=== PATIENT | female | born 1960 | race Caucasian/White ===

== ENCOUNTER → 2024-12-19 | Outpatient (REF) | payer OTHER, SELFPAY | LOC: OLS.ACW100 05:00 | PROVIDERS: Visit Provider Family Medicine | DX: A04.72 Enterocolitis due to Clostridium difficile, not specified as recurrent (principal) | CPT/HCPCS: 87493 ==

== ENCOUNTER → 2025-01-23 | Outpatient (REF) | payer OTHER, SELFPAY ==
[2025-01-23 09:38] LABS: Color, Urine Yellow (Yellow); Glucose, Dipstick Normal (Normal); Ketone-Dipstick Negative (Negative); Leukocyte Esterase-Dipstick 25 /ul (Negative); Nitrite-Dipstick Negative (Negative); Occult Blood-Urine 150 /ul (Negative); Protein-Dipstick 30 mg/dl (Negative); Specific Gravity, Urine 1.010 (1.002-1.030); Urine Bilirubin Dipstick Negative (Negative)
[2025-01-23 10:12] LABS: Red Blood Cells-Urine 25-50 SEEN /hpf (0-5)
[2025-01-23 10:13] LABS: Squamous Epithelial Cells - UA 5-10 SEEN /hpf (5-10)
[2025-01-23 10:16] LABS: Mucous, Urine 1+ /hpf (<or=2+)
== END ==
LOC: OLS.ACW100 06:00
PROVIDERS: Referring Provider Internal Medicine; Visit Provider Internal Medicine
DX: R39.9 Unspecified symptoms and signs involving the genitourinary system (principal)
CPT/HCPCS: 81001; 87086; 87088

== ENCOUNTER → 2025-02-27 04:00 | Outpatient (REF) | payer OTHER, SELFPAY ==
--- OUTSIDE RECORDS SUMMARY | 2025-02-27 04:52 | XMS RPT_ITS | CCD ---
Author Organization [facility] Care Team Providers Care Bone Process Operator Name Role Phone PROVIDER, UNKNOWN Unavailable Unavailable Aishwarya Rooney Unavailable Unavailable Tami Gomes Unavailable Unavailable Aishwarya Rooney MD Primary Care Provider Aishwarya Rooney Attending Unavailable PROVIDER, UNKNOWN Referring Unavailable Aishwarya Rooney Primary Care Unavailable Aishwarya Rooney Attending Unavailable PROVIDER, UNKNOWN Referring Unavailable Aishwarya Rooney Primary Care Unavailable Aishwarya Rooney MD Primary Care Provider Aishwarya Rooney MD Primary Care Provider Erika Soto RN Unavailable Aishwarya Garcia MD Primary Care Provider Priscilla Llanes MD Primary Care Provider PRISCILLA LLANES Primary Care Unavailable MIAH RAINES Admitting Unavailable VÍCTOR BRODY Consulting Unavailable JUSTO TEJADA Attending Unavailable Juan R Queen Attending Provider Unavailab Abraham Herman Attending Provider UnavailJuan R Mills Referring Provider Unavailab Juan R Fernandez Attending Unavailable Juan R Queen Referring Unavailable Juan R Queen Attending Unavailable Abraham Almaraz Attending Unavailable Juan R Queen Attending Unavailable Allergies Allergy Classification Reported Allergen(s) Allergy Type Date of Onset Reaction(s) Facility Angiotensin Converting Enzyme (SCOTTY) Inhibitors (1 source) Lisinopril Drug Allergy 12-02-2017 [facility] (12 sources) Lisinopril Propensity to adverse reactions 12-02-2017 [facility] Medications Current Medications Medication Drug Class(es) Dates Sig (Normalized) Sig (Original) apixaban 5 mg oral tablet (1 source) Factor Xa Inhibitor Start: 03-25-2017 take 1 tablet by mouth twice daily, then take 2 tablets by mouth twice daily, then take 1 tablet by mouth twice daily apixaban (ELIQUIS) 5 MG TABS tablet Take 1 tablet by mouth 2 times daily 2 tablets twice daily for for 7 days, first dose given in Emergency Room, 1 tablet twice daily after that 72 tablet 0 03/25/2017 Active 12 hr buPROPion hydrochloride 100 mg extended release oral tablet (4 sources) Aminoketone Start: 11-29-2024 End: 01-31-2025 miconazole nitrate 0.02 mg/mg topical powder (4 sources) Azole Antifungal Start: 11-24-2024 End: 12-03-2024 pantoprazole 40 mg delayed release oral tablet (2 sources) Proton Pump Inhibitor Start: 12-03-2024 End: 12-03-2025 Completed/Discontinued Medications Medication Drug Class(es) Dates Sig (Normalized) Sig (Original) acetaminophen 325 mg oral tablet (4 sources) Start: 11-30-2024 End: 12-03-2024 take 650 mg by mouth every four hours as needed for pain Start: 11-24-2024 End: 11-30-2024 take 1 tablet by mouth every eight hours 20 ml albumin human, long-term 250 mg/ml injection (6 sources) Human Serum Albumin Start: 11-30-2024 End: 11-30-2024 Start: 11-25-2024 End: 11-25-2024 amLODIPine 10 mg oral tablet (13 sources) Dihydropyridine Calcium Channel Jim Start: 05-14-2022 End: 12-03-2024 Start: 05-14-2022 amLODIPine (No rvasc) 10 MG tablet 05/14/2022 Active Start: 12-03-2017 take 1 tablet by kenneth once daily amLODIPine (NORVASC) 5 MG tablet Take 1 tablet by mouth daily 30 tablet 3 12/03/2017 Active calcium chloride 0.0014 meq/ ml / potassium chloride 0.004 meq/ml / sodium chloride 0.103 meq/ml / sodium lactate 0.028 meq/ml injectable solution (8 sources) Start: 11-28-2024 End: 11-28-2024 Start: 11-24-2024 End: 11-25-2024 carvedilol 6.25 mg oral tablet (12 sources) alpha-Adrenergic Jim, beta-Adrenergic Jim Start: 05-01-2022 End: 12-03-2024 Start: 05-01-2022 carvedilol (Co reg) 6.25 MG tablet 05/01/2022 Active cholecalciferol 9.52 unt/ml / glucose 357 mg/ml oral gel (2 sources) Vitamin D Start: 11-25-2024 End: 12-03-2024 collagenase 0.25 unt/mg topi felecia ointment (2 sources) Collagen-specific Enzyme Start: 11-25-2024 End: 12-03-2024 Drug or medicament (substanc e) (4 sources) Start: 11-25-2024 End: 12-03-2024 Start: 11-24-2024 End: 12-03-2024 0.4 ml enoxaparin sodium 100 mg/ml prefilled syringe (2 sources) Low Molecular Weight Heparin Start: 11-25-2024 End: 12-03-2024 famotidine 20 mg oral tablet (13 sources) Histamine-2 Receptor Antagonist Start: 12-02-2017 End: 12-03-2024 folic acid 1 mg oral tablet (15 sources) Start: 05-14-2022 End: 12-03-2024 folic acid (FOLV ITE) 1 MG tablet Take by mouth daily 0 Active 2 ml furosemide 10 mg/ml inj ection (4 sources) Loop Diuretic Start: 11-30-2024 End: 11-30-2024 glucagon (rdna) 1 mg injecti on (2 sources) Antihypoglycemic Agent Start: 11-25-2024 End: 12-03-2024 50 ml glucose 50 mg/ml injec tion (2 sources) Start: 11-25-2024 End: 12-03-2024 hydroCHLOROthiazide 25 mg or al tablet (13 sources) Thiazide Diuretic Start: 05-14-2022 End: 12-03-2024 Start: 12-03-2017 take 1 tablet by kenneth th once daily hydrochlorothiazide (HYDRODIURIL) 25 MG tablet Take 1 tablet by mouth daily 30 tablet 3 12/03/2017 Active hydrocortisone 100 mg inject ion (6 sources) Corticosteroid Start: 12-01-2024 End: 12-02-2024 Start: 11-25-2024 End: 11-30-2024 take 50 mg intravenously every eight hours magnesium oxide 400 mg oral tablet (2 sources) Start: 11-30-2024 End: 11-30-2024 50 ml magnesium sulfate 40 m g/ml injection (6 sources) Start: 11-30-2024 End: 12-01-2024 Start: 11-29-2024 End: 11-29-2024 Start: 11-27-2024 End: 11-27-2024 24 hr metFORMIN hydrochloride 500 mg extended release oral tablet (9 sources) Biguanide Start: 02-18-2022 End: 11-03-2022 metFORMIN XR (Glucophage-XR) 500 MG 24 hr tablet mupirocin 0.02 mg/mg topical ointment (2 sources) RNA Synthetase Inhibitor Antibacterial Start: 11-24-2024 End: 11-29-2024 1 ml naloxone hydrochloride 0.4 mg/ml injection (2 sources) Opioid Antagonist Start: 11-24-2024 End: 12-03-2024 piperacillin-tazob actam (Zosyn) 4,500 mg in sodium chloride 0.9 % 100 mL IVPB Mini-Bag Plus (2 sources) Start: 11-25-2024 End: 12-01-2024 take 4500 mg intravenously every six hours polyethylene glycol 3350 88553 mg powder for oral solution (2 sources) Osmotic Laxative Start: 11-24-2024 End: 12-03-2024 potassium chloride 20 meq powder for oral solution (20 sources) Start: 11-30-2024 End: 12-03-2024 Start: 11-30-2024 End: 11-30-2024 Start: 11-25-2024 End: 11-27-2024 Start: 11-25-2024 End: 11-28-2024 Start: 12-28-2020 End: 12-03-2024 potassium phosphate 155 mg / sodium phosphate, dibasic 852 mg / sodium phosphate, monobasic 130 mg oral tablet (4 sources) Start: 12-02-2024 End: 12-03-2024 rivaroxaban 20 mg oral tablet (12 sources) Factor Xa Inhibitor Start: 05-14-2022 End: 12-03-2024 10 ml sodium bicarbonate 84 mg/ml injection (2 sources) Start: 11-26-2024 End: 11-26-2024 5 ml sodium chloride 9 mg/ml injection (10 sources) Start: 11-25-2024 End: 12-03-2024 take 5-40 mL intraluminal route every eight hours Start: 11-25-2024 End: 12-03-2024 Start: 11-24-2024 End: 11-24-2024 traMADol hydrochloride 50 mg oral tablet (12 sources) Opioid Agonist Start: 09-18-2022 End: 12-03-2024 (20 sources) Start: 11-29-2024 End: 11-29-2024 Start: 11-28-2024 End: 11-28-2024 Start: 11-27-2024 End: 11-27-2024 Start: 11-26-2024 End: 11-27-2024 Start: 11-26-2024 End: 12-03-2024 [Order 1 Start] Name: pantop razole (ProtoNix) EC tablet 40 mg Signed Summary: 40 mg, Oral, Daily, First dose on 11/26/24 at 0900, Do not crush, chew, or split. [Order 1 End] [Order 2 Start] Name: pantoprazole (ProtoNix) 40 mg in sodium chloride (PF) 0.9 % 10 mL injection Signed Summary: 40 mg, IntraVENous, Administer over 2 Minutes, Daily, First dose on 11/26/24 at 0900, Give only if unable to tolerate po. [Order 2 End] Start: 11-25-2024 End: 11-25-2024 Start: 11-24-2024 End: 12-03-2024 take 5 mg by mouth every six hours as needed for pain [Order 1 Start] Name: oxyCODONE (Roxicodone) immediate release tablet 5 mg Signed Summary: 5 mg, Oral, Every 6 hours PRN, moderate pain (4-6), Starting on Keisha 11/24/24 at 2325 [Order 1 End] [Order 2 Start] Name: oxyCODONE (Roxicodone) immediate release tablet 10 mg Signed Summary: 10 mg, Oral, Every 6 hours PRN, severe pain (7-10), Starting on Keisha 11/24/24 at 2325 [Order 2 End] Start: 11-24-2024 End: 12-03-2024 take 4 mg by mouth every eight hours as needed for nausea and vomiting [Order 1 Start] Name: ondansetron ODT (Zofran-ODT) disintegrating tablet 4 mg Signed Summary: 4 mg, Oral, Every 8 hours PRN, nausea, vomiting, Starting on Keisha 11/24/24 at 2212, 1st Line. If inadequate response within 60 minutes, proceed to next-line agent or contact provider if no further options ordered. Patient should allow tablet to dissolve on tongue. Do not remove from blister pack until just before administering. [Order 1 End] [Order 2 Start] Name: ondansetron (Zofran) injection 4 mg Signed Summary: 4 mg, IntraVENous, Every 6 hours PRN, nausea, vomiting, Starting on Keisha 5 at 2212, 1st Line. Give IV if patient is unable to take orally. If inadequate response within 60 minutes, proceed to next-line agent or contact provider if no further options ordered. [Order 2 End] Start: 11-24-2024 End: 11-24-2024 Start: 11-24-2024 End: 11-24-2024 (4 sources) Start: 11-28-2024 End: 12-03-2024 Start: 11-26-2024 End: 12-03-2024 (4 sources) Start: 11-26-2024 End: 11-28-2024 Start: 11-25-2024 End: 11-26-2024 (4 sources) Start: 11-25-2024 End: 11-25-2024 Start: 11-25-2024 End: 11-25-2024 (4 sources) Start: 11-25-2024 End: 11-27-2024 Start: 11-25-2024 End: 11-25-2024 (2 sources) Start: 11-26-2024 End: 12-03-2024 (2 sources) Start: 11-25-2024 End: 11-27-2024 (2 sources) Start: 11-25-2024 End: 12-03-2024 (2 sources) Start: 11-24-2024 End: 11-25-2024 Problems Active Problems Problem Classification Problem Date Documented Date Episodic/Chronic Anxiety disorders (1 source) Anxiety disorder, unspecified; Translations: [Anxiety disorder, unspecified] Onset: 02-17-2025 Chronic Essential hypertension (14 sources) Essential (primary) hypertension; Translations: [Essential hypertension] Onset: 12-02-2017 10-16-2022 Chronic Malaise and fatigue (1 source) Weakness; Translations: [Weakness] Onset: 02-17-2025 Episodic Nutritional deficiencies (1 source) Moderate protein-calorie malnutrition; Translations: [Moderate protein-calorie malnutrition] Onset: 02-17-2025 Chronic Open wounds of extremities (8 sources) Injury of left leg; Translations: [Unspecified open wound, left lower leg, initial encounter] Onset: 11-24-2024 11-24-2024 Episodic Osteoarthritis (18 sources) Osteoarthritis of right knee joint; Translations: [Unilateral primary osteoarthritis, right knee] Onset: 07-02-2022 Chronic Other aftercare (2 sources) [facility] (current) use of anticoagulants; 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] Onset: 12-02-2017 Episodic Other connective tissue disease (1 source) Muscle weakness (generalized); Translations: [Muscle weakness (generalized)] Onset: 02-17-2025 Episodic Other diseases of veins and lymphatics (1 source) 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; Translations: [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] Onset: 02-17-2025 Chronic Other hematologic conditions (2 sources) Personal history of diseases of the blood and blood-forming organs and certain disorders involving the immune mechanism; Translations: [Prsnl history of dis of the bld/bld-form org/immun mechnsm] Onset: 12-02-2017 Episodic Other injuries and conditions due to external causes (2 sources) Angioneurotic edema, initial encounter; Translations: [Angioneurotic edema, initial encounter] Onset: 12-02-2017 Episodic Other injuries and conditions due to external causes (2 sources) Local infection of wound; Translations: [Other injury of unspecified body region, initial encounter] 11-24-2024 Episodic Other injuries and conditions due to external causes (2 sources) Other injury of unspecified body region, initial encounter; Translations: [Other injury of unspecified body region, initial encounter] Onset: 11-24-2024 Episodic Other nervous system disorders (1 source) Unspecified lack of coordination; Translations: [Unspecified lack of coordination] Onset: 02-17-2025 Episodic Other nutritional; endocrine; and metabolic disorders (1 source) Obesity, unspecified; Translations: [Obesity, unspecified] Onset: 02-17-2025 Chronic Other skin disorders (2 sources) Localized swelling, mass and lump, head; Translations: [Localized swelling, mass and lump, head] Onset: 12-02-2017 Episodic Residual codes; unclassified (4 sources) Edema of lower extremity; Translations: [Localized edema] 12-03-2024 Episodic Residual codes; unclassified (2 sources) Localized edema; Translations: [Localized edema] Onset: 11-24-2024 Episodic Septicemia (except in labor) (1 source) Sepsis, unspecified organism; Translations: [Sepsis, unspecified organism] Onset: 02-17-2025 Episodic Skin and subcutaneous tissue infections (2 sources) Local infection of the skin and subcutaneous tissue, unspecified; Translations: [Local infection of the skin and subcutaneous tissue, unspecified] Onset: 11-24-2024 Episodic Unclassified (2 sources) Acquired absence of both cervix and uterus; Translations: [Acquired absence of both cervix and uterus] Onset: 12-02-2017 Episodic Past or Other Problems Problem Classification Problem Date Documented Date Episodic/Chronic Other diseases of veins and lymphatics (12 sources) Peripheral venous insufficiency; Translations: [Venous insufficiency (chronic) (peripheral)] Onset: 06-25-2022 10-16-2022 Episodic Other hematologic conditions (12 sources) H/O: Disorder; Translations: [Personal history of diseases of the blood and blood-forming organs and certain disorders involving the immune mechanism] Onset: 12-02-2017 10-16-2022 Episodic Other injuries and conditions due to external causes (13 sources) Angioedema; Translations: [Angioneurotic edema, initial encounter] Onset: 12-02-2017 12-02-2017 Episodic Screening or history of mental health and substance abuse (14 sources) Personal history of nicotine dependence; Translations: [Personal history of tobacco use] Onset: 12-02-2017 10-16-2022 Episodic Results Test Name Value Interpretation Reference Range Facility Bilirubin Test strip Ql (U)O rdered By: Juan R Lee on 01-23-2025 Bilirubin Ql (U) Negative Negative [facility] Hyaline casts LM.LPF (Urine sed) [#/Area]Ordered By: Juan R Lee on 01-23-2025 Hyaline casts (Urine sed) [#/Area] 0 /[LPF] 0-5 [facility] Ketones Test strip Ql (U)Ord ered By: Juan R Lee on 01-23-2025 Ketones Ql (U) Negative Negative [facility] Microscopic analysis of urin e for red blood cells (RBC)Ordered By: Juan R Lee on 01-23-2025 Microscopic analysis of urine for red blood cells (RBC) 25-50 SEEN /hpf 0-5 [facility] Mucus LM Ql (Urine sed)Order ed By: Juan R Lee on 01-23-2025 Mucus Ql (Urine sed) 1+ /hpf [facility] Nitrite Test strip Ql (U)Ord ered By: Juan R Lee on 01-23-2025 Nitrite Ql (U) Negative Negative [facility] Protein Test strip Ql (U)Ord ered By: Juan R Lee on 01-23-2025 Protein Ql (U) 30 mg/dl High Negative [facility] Squamous epithelial cells de tection in urine sediment by light microscopyOrdered By: Juan R Lee on 01-23-2025 Epithelial cells.squamous LM Ql (Urine sed) 5-10 SEEN /hpf 5-10 [facility] Urine clarityOrdered By: Bharathi Lee on 01-23-2025 Clarity (U) Sl. Cloudy Clear [facility] Urine color determinationOrd ered By: Juan R Lee on 01-23-2025 Color (U) Yellow Yellow [facility] Urine cultureOrdered By: Bharathi Lee on 01-23-2025 Bacteria identified Cx Nom (U) Mixed Gram Pos & Gram Neg Org Abnormal [facility] Urine glucose detectionOrder ed By: Juan R Lee on 01-23-2025 Glucose Ql (U) Normal mg/dl Normal [facility] Urine leukocyte esterase det ection by dipstickOrdered By: Juan R Lee on 01-23-2025 Leukocyte esterase Test strip Ql (U) 25 /ul High Negative [facility] Urine pHOrdered By: Juan R el on 01-23-2025 pH (U) 7.0 [pH] 5.0 - 8.0 [facility] Urine sediment bacteria coun t by microscopy (number/high power field)Ordered By: Juan R Lee on 01-23-2025 Bacteria LM.HPF (Urine sed) [#/Area] RARE /hpf None Seen [facility] Urine specific gravity measu rementOrdered By: Juan R Lee on 01-23-2025 Specific gravity (U) [Rel density] 1.010 1.002-1.030 [facility] Urine urobilinogen measureme ntOrdered By: Juan R Lee on 01-23-2025 Urobilinogen Ql (U) 1 mg/dl High [facility] White blood cell countOrdere d By: Juan R Lee on 01-23-2025 White blood cell count 10-25 SEEN /hpf 0-5 [facility] [id number] 01-01-2025 [id number] Patient Choice Patient Name: MAXWELL COLLIER Date of : 1960 [facility] Clostridium difficile detect ion by polymerase chain reactionOrdered By: Abraham Abbott on 12-19-2024 C. difficile DNA ARON+probe Ql (Unsp spec) [facility] Anion gap in Serum or Plasma Ordered By: Juan R Lee on 12-07-2024 Anion gap [Moles/Vol] 11 mmol/L 5-15 [facility] BUN/creatinine ratioOrdered By: Juan R Lee on 12-07-2024 Urea nitrogen/Creatinine [Mass ratio] 13.6 mg/mg 10-20 [facility] Bilirubin, totalOrdered By: Juan R Lee on 12-07-2024 Bilirubin [Mass/Vol] 0.81 mg/dL 0.00-1.30 [facility] Carbon dioxide, total [Moles /volume] in Central venous bloodOrdered By: Juan R Lee on 12-07-2024 CO2 [Moles/Vol] 22.7 mmol/L 21.0-32.0 [facility] Chloride assayOrdered By: Shaan Chaudhari on 12-07-2024 Chloride [Moles/Vol] 111 mmol/L High 98-108 [facility] Erythrocyte distribution wid th ratioOrdered By: Juan R Lee on 12-07-2024 Erythrocyte distribution width (RBC) [Ratio] 16.3 % High 11.6-14.6 [facility] Erythrocyte distribution wid th standard deviationOrdered By: Juan R Lee on 12-07-2024 Erythrocyte distribution width (RBC) [Ratio] 63.7 fl High 35.1-43.9 [facility] Glomerular filtration rate ( GFR) estimation/1.73 sq m using serum, plasma, or whole bOrdered By: Juan R Lee on 12-07-2024 GFR/1.73 sq M.predicted among non-blacks MDRD (S/P/Bld) [Vol rate/Area] 109 mL/min/{1.73_m2} >60 [facility] Comment on above: mL/min/1.73m2 CKD-EP I Creatinine Equation (2020) Hematocrit Auto (Bld) [Volum e fraction]Ordered By: Juan R Lee on 12-07-2024 Hematocrit (Bld) [Volume fraction] 25.1 % Low 37-47 [facility] Hemoglobin measurementOrdere d By: Juan R Lee on 12-07-2024 Hemoglobin (Bld) [Mass/Vol] 7.9 g/dL Low 12.0-15.0 [facility] Laboratory - Chemistry and C hemistry - challengeOrdered By: Juan R Lee on 12-07-2024 AST [Catalytic activity/Vol] 24 U/L <32 [facility] MCV (mean corpuscular volume ) determinationOrdered By: Juan R Lee on 12-07-2024 MCV (RBC) [Entitic vol] 106.4 fL High 81-99 [facility] Mean corpuscular hemoglobin (MCH) determinationOrdered By: Juan R Lee on 12-07-2024 MCH (RBC) [Entitic mass] 33.5 pg High 27.0-32.0 [facility] Mean corpuscular hemoglobin concentration (MCHC) determinationOrdered By: Juan R Lee on 12-07-2024 MCHC (RBC) [Mass/Vol] 31.5 g/dL Low 32-36 [facility] Mean platelet volume determi nationOrdered By: Juan R Lee on 12-07-2024 Platelet mean volume (Bld) [Entitic vol] 9.9 fL 6.2-12.0 [facility] Platelet countOrdered By: Shaan Chaudhari on 12-07-2024 Platelets (Bld) [#/Vol] 174 10*3/uL 150-450 [facility] Potassium measurement (mass/ volume)Ordered By: Juan R Lee on 12-07-2024 Potassium (Unsp spec) [Mass/Vol] 3.2 mmol/L Low 3.3-5.1 [facility] RBC Auto (Bld) [#/Vol]Ordere d By: Juan R Lee on 12-07-2024 RBC (Bld) [#/Vol] 2.36 10*6/uL Low 4.2-5.4 [facility] Serum creatinine measurement (mass/volume)Ordered By: Juan R Lee on 12-07-2024 Creatinine [Mass/Vol] 0.45 mg/dL Low 0.70-1.20 [facility] Serum globulin measurementOr dered By: Juan R Lee on 12-07-2024 Globulin (S) [Mass/Vol] 2.4 g/dL 2.2-4.2 [facility] Serum glucose measurement (m ass/volume)Ordered By: Juan R Lee on 12-07-2024 Glucose [Mass/Vol] 77 mg/dL 70-99 [facility] Serum or plasma alanine august otransferase (ALT) measurementOrdered By: Juan R Lee on 12-07-2024 ALT [Catalytic activity/Vol] 27 U/L <35 [facility] Serum or plasma albumin sarah urement (mass/volume)Ordered By: Juan R Lee on 12-07-2024 Albumin [Mass/Vol] 3.0 g/dL Low 3.4-4.8 [facility] Serum or plasma albumin/glob ulin mass ratioOrdered By: Juan R Lee on 12-07-2024 Albumin/Globulin [Mass ratio] 1.3 {ratio} 0.9-2.4 [facility] Serum or plasma alkaline talya sphatase measurementOrdered By: Juan R Lee on 12-07-2024 ALP [Catalytic activity/Vol] 91 U/L 35-104 [facility] Serum or plasma calcium sarah urement (mass/volume)Ordered By: Juan R Lee on 12-07-2024 Calcium [Mass/Vol] 9.3 mg/dL 7.6-11.0 [facility] Serum or plasma urea nitroge n measurement (mass/volume)Ordered By: Juan R Lee on 12-07-2024 Urea nitrogen [Mass/Vol] 6 mg/dL - [facility] Sodium levelOrdered By: Lui Lee on 12-07-2024 Sodium [Moles/Vol] 144 mmol/L 133-145 [facility] Total proteinOrdered By: Bharathi Lee on 12-07-2024 Protein [Mass/Vol] 5.4 g/dL Low 5.9-8.4 [facility] White blood cell (WBC) count Ordered By: Juan R Lee on 12-07-2024 WBC (Bld) [#/Vol] 5.1 10*3/uL 4.4-11.0 [facility] Anion gap in Serum or Plasma Ordered By: Juan R Lee on 12-05-2024 Anion gap [Moles/Vol] 11 mmol/L 5- [facility] BUN/creatinine ratioOrdered By: Juan R Lee on 12-05-2024 Urea nitrogen/Creatinine [Mass ratio] 15.7 mg/mg 10- [facility] Bilirubin, totalOrdered By: Juan R Lee on 12-05-2024 Bilirubin [Mass/Vol] 0.89 mg/dL 0.00-1.30 [facility] Carbon dioxide, total [Moles /volume] in Central venous bloodOrdered By: Juan R Lee on 12-05-2024 CO2 [Moles/Vol] 23.1 mmol/L 21.0-32.0 [facility] Chloride assayOrdered By: Shaan Chaudhari on 12-05-2024 Chloride [Moles/Vol] 107 mmol/L 98-108 [facility] Erythrocyte distribution wid th ratioOrdered By: Juan R Lee on 12-05-2024 Erythrocyte distribution width (RBC) [Ratio] 16.4 % High 11.6-14.6 [facility] Erythrocyte distribution wid th standard deviationOrdered By: Juan R Lee on 12-05-2024 Erythrocyte distribution width (RBC) [Ratio] 62.6 fl High 35.1-43.9 [facility] Glomerular filtration rate ( GFR) estimation/1.73 sq m using serum, plasma, or whole bOrdered By: Jua nR Lee on 12-05-2024 GFR/1.73 sq M.predicted among non-blacks MDRD (S/P/Bld) [Vol rate/Area] 113 mL/min/{1.73_m2} >60 [facility] Comment on above: mL/min/1.73m2 CKD-EP I Creatinine Equation (2020) Hematocrit Auto (Bld) [Volum e fraction]Ordered By: Juan R Lee on 12-05-2024 Hematocrit (Bld) [Volume fraction] 23.5 % Low 37-47 [facility] Hemoglobin measurementOrdere d By: Juan R Lee on 12-05-2024 Hemoglobin (Bld) [Mass/Vol] 7.7 g/dL Low 12.0-15.0 [facility] Laboratory - Chemistry and C hemistry - challengeOrdered By: Juan R Lee on 12-05-2024 AST [Catalytic activity/Vol] 35 U/L High <32 [facility] MCV (mean corpuscular volume ) determinationOrdered By: Juan R Lee on 12-05-2024 MCV (RBC) [Entitic vol] 104.0 fL High 81-99 [facility] Mean corpuscular hemoglobin (MCH) determinationOrdered By: Juan R Lee on 12-05-2024 MCH (RBC) [Entitic mass] 34.1 pg High 27.0-32.0 [facility] Mean corpuscular hemoglobin concentration (MCHC) determinationOrdered By: Juan R Lee on 12-05-2024 MCHC (RBC) [Mass/Vol] 32.8 g/dL 32-36 [facility] [facility] Mean platelet volume determi nationOrdered By: Juan R Lee on 12-05-2024 Platelet mean volume (Bld) [Entitic vol] 10.2 fL 6.2-12.0 [facility] Platelet countOrdered By: Shaan Chaudhari on 12-05-2024 Platelets (Bld) [#/Vol] 150 10*3/uL 150-450 [facility] Potassium measurement (mass/ volume)Ordered By: Juan R Lee on 12-05-2024 Potassium (Unsp spec) [Mass/Vol] 3.2 mmol/L Low 3.3-5.1 [facility] RBC Auto (Bld) [#/Vol]Ordere d By: Juan R Lee on 12-05-2024 RBC (Bld) [#/Vol] 2.26 10*6/uL Low 4.2-5.4 [facility] Serum creatinine measurement (mass/volume)Ordered By: Juan R Lee on 12-05-2024 Creatinine [Mass/Vol] 0.39 mg/dL Low 0.70-1.20 [facility] Serum globulin measurementOr dered By: Juan R Lee on 12-05-2024 Globulin (S) [Mass/Vol] 2.4 g/dL 2.2-4.2 [facility] Serum glucose measurement (m ass/volume)Ordered By: Juan R Lee on 12-05-2024 Glucose [Mass/Vol] 79 mg/dL 70-99 [facility] Serum or plasma alanine august otransferase (ALT) measurementOrdered By: Juan R Lee on 12-05-2024 ALT [Catalytic activity/Vol] 36 U/L High <35 [facility] Serum or plasma albumin sarah urement (mass/volume)Ordered By: Juan R Lee on 12-05-2024 Albumin [Mass/Vol] 3.1 g/dL Low 3.4-4.8 [facility] Serum or plasma albumin/glob ulin mass ratioOrdered By: Juan R Lee on 12-05-2024 Albumin/Globulin [Mass ratio] 1.3 {ratio} 0.9-2.4 [facility] Serum or plasma alkaline talya sphatase measurementOrdered By: Juan R Lee on 12-05-2024 ALP [Catalytic activity/Vol] 84 U/L 35-104 [facility] Serum or plasma calcium sarah urement (mass/volume)Ordered By: Juan R Lee on 12-05-2024 Calcium [Mass/Vol] 9.2 mg/dL 7.6-11.0 [facility] Serum or plasma urea nitroge n measurement (mass/volume)Ordered By: Juan R Lee on 12-05-2024 Urea nitrogen [Mass/Vol] 6 mg/dL 4-19 [facility] Sodium levelOrdered By: Lui Lee on 12-05-2024 Sodium [Moles/Vol] 141 mmol/L 133-145 [facility] Total proteinOrdered By: Bharathi Lee on 12-05-2024 Protein [Mass/Vol] 5.5 g/dL Low 5.9-8.4 [facility] White blood cell (WBC) count Ordered By: Juan R Lee on 12-05-2024 WBC (Bld) [#/Vol] 5.6 10*3/uL 4.4-11.0 [facility] 30on 12-03-2024 30 Normal [facility] [id number] 12-03-2024 [id number] Normal [facility] [id number] Normal [facility] BASIC METABOLIC PANELon 11-17 Anion gap [Moles/Vol] 8 mmol/L Normal 3-13 [facility] Comment on above: Performed By: #### L AB103, LAB15, [id number] ####Registration Coordinator: JESSY OWENS ([id number])[facility] [place] [address] Calcium [Mass/Vol] 9.3 mg/dL Normal 8.8-10.0 [facility] Comment on above: Performed By: #### Davidson AB103, LAB15, [id number] ####Registration Coordinator: JESSY OWENS ([id number])[facility] ([facility])[address] [place] [address] [place] Chloride [Moles/Vol] 107 mmol/L Normal 98-107 [facility] Comment on above: Performed By: #### L AB103, LAB15, [id number] ####Registration Coordinator: JESSY OWENS ([id number])[facility] [place] [address] [place] CO2 [Moles/Vol] 24 mmol/L Normal 23-31 [facility] Comment on above: Performed By: #### L AB103, LAB15, [id number] ####Registration Coordinator: JESSY OWENS ([id number])[facility] [place] [address] [place] Creatinine [Mass/Vol] 0.51 mg/dL Low 0.57-1.11 [facility] Comment on above: Performed By: #### Davidson CASTRO, LAB15, [id number] ####Registration Coordinator: JESSY OWENS ([id number])[facility])[address] [place] [address] GLOMERULAR FILTRATION RATE ML/MIN/1.73 SQ M.PREDICTED >90.0 Normal >60.0 [facility] Comment on above: Result Comment: Calc ulation based on the Chronic Kidney Disease Epidemiology Collaboration (CKD-EPI) equation refit without adjustment for race Performed By: #### Davidson CASTRO, LAB15, [id number] ####Registration Coordinator: JESSY OWENS ([id number])[facility])[address] [place] [address] Glucose [Mass/Vol] 82 mg/dL Normal 82-115 [facility] Comment on above: Performed By: #### Davidson CASTRO, LAB15, [id number] ####Registration Coordinator: JESSY OWENS ([id number])[facility])[address] [place] [address] Potassium [Moles/Vol] 3.4 mmol/L Low 3.5-5.1 [facility] Comment on above: Result Comment: [facility] potassium values may be up to 0.5 mmol/L lower than serum values. Performed By: #### Davidson CASTRO, LAB15, [id number] ####Registration Coordinator: JESSY OWENS ([id number])[facility])[address] [place] [address] Sodium [Moles/Vol] 139 mmol/L Normal 136-145 [facility] Comment on above: Performed By: #### Davidson CASTRO, LAB15, [id number] ####Registration Coordinator: JESSY OWENS ([id number])[facility])[address] [place] [address] Urea nitrogen [Mass/Vol] 13 mg/dL Normal 9-23 [facility] Comment on above: Performed By: #### Davidson AB103, LAB15, [id number] ####Registration Coordinator: JESSY OWENS ([id number])[facility] ([facility])[address] [place] [address] Bacteria identified Cx Nom ( Bld)on 12-03-2024 Interpretation and review of laboratory results Normal [facility] Basic metabolic 1998 panelon 12-03-2024 Anion gap [Moles/Vol] 8 mmol/L 3 - 13 mmol/L [facility] Calcium [Mass/Vol] 9.3 mg/dL 8.8 - 10. 0 mg/dL [facility] Chloride [Moles/Vol] 107 mmol/L 98 - 10 7 mmol/L [facility] CO2 [Moles/Vol] 24 mmol/L 23 - 31 mmol/L [facility] Creatinine [Mass/Vol] 0.51 mg/dL Low 0.57 - 1.11 mg/dL [facility] GFR/1.73 sq M.predicted (S/P/Bld) [Vol rate/Area] - PINF [facility] Glucose [Mass/Vol] 82 mg/dL 82 - 115 mg/dL [facility] Potassium [Moles/Vol] 3.4 mmol/L Low 3.5 - 5.1 mmol/L [facility] Sodium [Moles/Vol] 139 mmol/L 136 - 145 mmol/L [facility] Urea nitrogen [Mass/Vol] 13 mg/dL 9 - 23 mg/d L [facility] CALCIUM, IONIZEDon 5 CALCIUM IONIZED 4.90 mg/dL Normal 4.30-5.20 [facility] Comment on above: Performed By: #### L AB54 ####Registration Coordinator: JESSY OWENS ([id number])[facility] ([facility])[address] [place] [address] PH, IONIZED CALCIUM 7.38 Normal 7.31-7.46 [facility] Comment on above: Performed By: #### L AB54 ####Registration Coordinator: JESSY OWENS ([id number])[facility] ([facility])[address] [place] [address] CBC W Auto Differential pane l (Bld)on 12-03-2024 Basophils (Bld) [#/Vol] 0 10*3/uL 0.0 - 0.2 10*3/uL [facility] Basophils/100 WBC (Bld) 0.1 % 0.0 - 2.0 % [facility] Eosinophils (Bld) [#/Vol] 0.2 10*3/uL 0.0 - 0.5 10*3/uL [facility] Eosinophils/100 WBC (Bld) 2.1 % 0.0 - 6.0 % [facility] Erythrocyte distribution width (RBC) [Ratio] 16.6 % High 11.5 - 15.0 % [facility] Hematocrit (Bld) [Volume fraction] 25.8 % Low 35.0 - 47.0 % [facility] Hemoglobin (Bld) [Mass/Vol] 8.4 g/dL Low 11.7 - 16.0 g/dL [facility] Immature granulocytes (Bld) [#/Vol] 0.1 10*3/uL High NINF - 0.1 10*3/uL [facility] Immature granulocytes/100 WBC (Bld) 1.3 % 0.0 - 2.0 % [facility] Interpretation and review of laboratory results Abnormal [facility] Lymphocytes (Bld) [#/Vol] 1.5 10*3/uL 1.0 - 4.3 10*3/uL [facility] Lymphocytes/100 WBC (Bld) 17.2 % 15.0 - 45.0 % [facility] MCH (RBC) [Entitic mass] 33.5 pg 26. 0 - 34.0 pg [facility] MCHC (RBC) [Mass/Vol] 32.6 % 30.5 - 36.0 % [facility] MCV (RBC) [Entitic vol] 102.8 fL High 77.0 - 99.0 fL [facility] Monocytes (Bld) [#/Vol] 0.5 10*3/uL 0.0 - 0.9 10*3/uL [facility] Monocytes/100 WBC (Bld) 5.3 % 5.0 - 13.0 % [facility] Neutrophils (Bld) [#/Vol] 6.6 10*3/uL 1.8 - 7.5 10*3/uL [facility] Neutrophils/100 WBC (Bld) 74 % 38.0 - 82.0 % [facility] Nucleated RBC/100 WBC (Bld) [Ratio] 0 % [facility] Platelet mean volume (Bld) [Entitic vol] 10.6 fL 9.0 - 12.7 fL [facility] Platelets (Bld) [#/Vol] 112 10*3/uL Low 140 - 440 10*3/uL [facility] RBC (Bld) [#/Vol] 2.51 10*6/uL Low 3.80 - 5.2 0 10*6/uL [facility] WBC (Bld) [#/Vol] 8.9 10*3/uL 3.6 - 10.7 10*3/uL [facility] CBC WITH AUTO DIFFERENTIALon 12-03-2024 Basophils (Bld) [#/Vol] 0.0 10*3/uL Normal 0.0-0.2 [facility] Comment on above: Performed By: #### L [id number] ####Registration Coordinator: JESSY OWENS ([id number])[facility])[address] [place] [address] Basophils/100 WBC (Bld) 0.1 % Normal 0.0-2.0 [facility] Comment on above: Performed By: #### L [id number] ####Registration Coordinator: JESSY OWENS ([id number])[facility])[address] [place] [address] Eosinophils (Bld) [#/Vol] 0.2 10*3/uL Normal 0.0-0.5 [facility] Comment on above: Performed By: #### L [id number] ####Registration Coordinator: JESSY OWENS ([id number])[facility])[address] [place] [address] Eosinophils/100 WBC (Bld) 2.1 % Normal 0.0-6.0 [facility] Comment on above: Performed By: #### L [id number] ####Registration Coordinator: JESSY OWENS ([id number])[facility])[address] [place] [address] Erythrocyte distribution width (RBC) [Ratio] 16.6 % High 11.5-15.0 [facility] Comment on above: Performed By: #### L [id number] ####Registration Coordinator: JESSY OWENS ([id number])[facility])[address] [place] [address] Hematocrit (Bld) [Volume fraction] 25.8 % Low 35.0-47.0 [facility] Comment on above: Performed By: #### L [id number] ####Registration Coordinator: JESSY OWENS ([id number])[facility])[address] [place] [address] Hemoglobin (Bld) [Mass/Vol] 8.4 g/dL Low 11.7-16.0 [facility] Comment on above: Performed By: #### L [id number] ####Registration Coordinator: JESSY OWENS ([id number])[facility])[address] [place] [address] IMMATURE GRANS % 1.3 % Normal 0.0-2.0 [facility] Comment on above: Performed By: #### L [id number] ####Registration Coordinator: JESSY OWENS ([id number])[facility] ([facility])[address] [place] [address] IMMATURE GRANS ABSOLUTE 0.1 10*3/uL High <0.1 [facility] Comment on above: Performed By: #### L [id number] ####Registration Coordinator: JESSY OWENS ([id number])[facility])[address] [place] [address] Lymphocytes (Bld) [#/Vol] 1.5 10*3/uL Normal 1.0-4.3 [facility] Comment on above: Performed By: #### L [id number] ####Registration Coordinator: JESSY OWENS ([id number])[facility])[address] [place] [address] Lymphocytes/100 WBC (Bld) 17.2 % Normal 15.0-45.0 [facility] Comment on above: Performed By: #### L [id number] ####Registration Coordinator: JESSY OWENS ([id number])[facility])[address] [place] [address] MCH (RBC) [Entitic mass] 33.5 pg Normal 26.0-34.0 [facility] Comment on above: Performed By: #### L [id number] ####Registration Coordinator: JESSY OWENS ([id number])[facility])[address] [place] [address] MCHC 32.6 % Normal 30.5-36.0 [facility] Comment on above: Performed By: #### L [id number] ####Registration Coordinator: JESSY OWENS ([id number])[facility])[address] [place] [address] MCV (RBC) [Entitic vol] 102.8 fL High 77.0-99.0 [facility] Comment on above: Performed By: #### L [id number] ####Registration Coordinator: JESSY OWENS ([id number])[facility])[address] [place] [address] Monocytes (Bld) [#/Vol] 0.5 10*3/uL Normal 0.0-0.9 [facility] Comment on above: Performed By: #### L [id number] ####Registration Coordinator: JESSY OWENS ([id number])[facility])[address] [place] [address] Monocytes/100 WBC (Bld) 5.3 % Normal 5.0-13.0 [facility] Comment on above: Performed By: #### L [id number] ####Registration Coordinator: JESSY OWENS ([id number])[facility])[address] [place] [address] NEUTROPHILS ABSOLUTE 6.6 10*3/uL Normal 1.8-7.5 [facility] Comment on above: Performed By: #### L [id number] ####Registration Coordinator: JESSY OWENS ([id number])[facility])[address] [place] [address] Neutrophils/100 WBC (Bld) 74.0 % Normal 38.0-82.0 [facility] Comment on above: Performed By: #### L [id number] ####Registration Coordinator: JESSY OWENS ([id number])[facility])[address] [place] [address] NRBC 0.0 /100 WBCs Normal 0.0-2.0 [facility] Comment on above: Performed By: #### L [id number] ####Registration Coordinator: JESSY OWENS ([id number])[facility])[address] [place] [address] Platelet mean volume (Bld) [Entitic vol] 10.6 fL Normal 9.0-12.7 [facility] Comment on above: Performed By: #### L [id number] ####Registration Coordinator: JESSY OWENS ([id number])[facility] ([facility])[address] [place] [address] Platelets (Bld) [#/Vol] 112 10*3/uL Low 140-440 [facility] Comment on above: Performed By: #### L [id number] ####Registration Coordinator: JESSY OWENS ([id number])[facility])[address] [place] [address] RBC (Bld) [#/Vol] 2.51 10*6/uL Low 3.80-5.20 [facility] Comment on above: Performed By: #### L [id number] ####Registration Coordinator: JESSY OWENS ([id number])[facility])[address] [place] [address] WBC (Bld) [#/Vol] 8.9 10*3/uL Normal 3.6-10.7 [facility] Comment on above: Performed By: #### L [id number] ####Registration Coordinator: JESSY OWENS ([id number])[facility])[address] [place] [address] Calcium.ionized [Moles/Vol]o n 12-03-2024 Calcium.ionized (Bld) [Moles/Vol] 4.9 mg/dL 4.30 - 5.20 mg/dL [facility] Interpretation and review of laboratory results Normal [facility] PH, IONIZED CALCIUM 7.38 7.31 - 7.46 [facility] - Chemistry and C hemistry - challengeon 12-03-2024 Glucose [Mass/Vol] 68 mg/dL Low 70 - 100 mg/dL [facility] Glucose [Mass/Vol] 92 mg/dL 70 - 100 mg/dL [facility] Magnesium [Mass/Vol] 1.6 mg/dL 1.6 - 2 .6 mg/dL [facility] Laboratory - Microbiology an d Antimicrobial susceptibilityon 12-03-2024 Bacteria identified Cx Nom (Bld) No growth at 5 days [facility] MAGNESIUMon 12-03-2024 Magnesium [Mass/Vol] 1.6 mg/dL Normal 1.6-2.6 [facility] Comment on above: Result Comment: TANA Wick COMMENTS:Higher values can be expected in females during menses. Performed By: #### L AB103, LAB15, [id number] ####Registration Coordinator: JESSY OWENS ([id number])[facility] ([address] Magnesium [Mass/Vol]on 12-03 Interpretation and review of laboratory results Normal [facility] No Panel Informationon 12-03 Interpretation and review of laboratory results Abnormal [facility] Interpretation and review of laboratory results Normal [facility] Interpretation and review of laboratory results Abnormal [facility] Nursing Noteon 12-03-2024 Nursing Note Pt discharged at this time. All belongings were collected and sent with patient. Pt transferred to [facility] without issue. Report also called to [facility]) with all questions answered. Normal [facility] Nursing Note Patient has all home medications in bag for discharged. Nothing remains in med cabinet. Normal [facility] Nursing Note MELBA completed at this time. Normal [facility] Nursing Note Attempted to call report. Was told that nurse is busy. Awaiting call back. Normal [facility] Nursing Note Wound care to bilateral buttocks preformed at this time. Pt tolerated well. Normal [facility] PHOSPHORUSon 12-03-2024 Phosphate [Mass/Vol] 2.2 mg/dL Low 2.3-4.7 [facility] Comment on above: Performed By: #### L AB103, LAB15, [id number] ####Registration Coordinator: JESSY OWENS ([id number])[facility])[address] [place] [address] Phosphate [Moles/Vol]on 11-17 Phosphate [Mass/Vol] 2.2 mg/dL Low 2.3 - 4 .7 mg/dL [facility] [id number] 12-02-2024 [id number] completed in [place] per [facility] request. Facility notified via [employer]. [facility] [id number] Transport requested in [employer] in will call to Risa Okeefe per TCC. Normal [facility] [id number] Normal [facility] CALCIUM, IONIZEDon CALCIUM IONIZED 4.80 mg/dL Normal 4.30-5.20 [facility] Comment on above: Performed By: #### L AB54 ####Registration Coordinator: JESSY OWENS ([id number])[facility])[address] [place] [address] PH, IONIZED CALCIUM 7.46 Normal 7.31-7.46 [facility] Comment on above: Performed By: #### L AB54 ####Registration Coordinator: JESSY OWENS ([id number])[facility] ([facility])[address] [place] [address] CBC W Auto Differential pane l (Bld)on 12-02-2024 Basophils (Bld) [#/Vol] 0 10*3/uL 0.0 - 0.2 10*3/uL [facility] Basophils/100 WBC (Bld) 0.2 % 0.0 - 2.0 % [facility] Eosinophils (Bld) [#/Vol] 0.2 10*3/uL 0.0 - 0.5 10*3/uL [facility] Eosinophils/100 WBC (Bld) 2.7 % 0.0 - 6.0 % [facility] Erythrocyte distribution width (RBC) [Ratio] 16.4 % High 11.5 - 15.0 % [facility] Hematocrit (Bld) [Volume fraction] 24.8 % Low 35.0 - 47.0 % [facility] Hemoglobin (Bld) [Mass/Vol] 8 g/dL Low 11.7 - 16.0 g/dL [facility] Immature granulocytes (Bld) [#/Vol] 0.1 10*3/uL High NINF - 0.1 10*3/uL [facility] Immature granulocytes/100 WBC (Bld) 2.1 % High 0.0 - 2.0 % [facility] Interpretation and review of laboratory results Abnormal [facility] IPF 5 [facility] Lymphocytes (Bld) [#/Vol] 1.2 10*3/uL 1.0 - 4.3 10*3/uL [facility] Lymphocytes/100 WBC (Bld) 18.3 % 15.0 - 45.0 % [facility] MCH (RBC) [Entitic mass] 33.3 pg 26. 0 - 34.0 pg [facility] MCHC (RBC) [Mass/Vol] 32.3 % 30.5 - 36.0 % [facility] MCV (RBC) [Entitic vol] 103.3 fL High 77.0 - 99.0 fL [facility] Monocytes (Bld) [#/Vol] 0.4 10*3/uL 0.0 - 0.9 10*3/uL [facility] Monocytes/100 WBC (Bld) 5.6 % 5.0 - 13.0 % [facility] Neutrophils (Bld) [#/Vol] 4.7 10*3/uL 1.8 - 7.5 10*3/uL [facility] Neutrophils/100 WBC (Bld) 71.1 % 38.0 - 82.0 % [facility] Nucleated RBC/100 WBC (Bld) [Ratio] 0 % [facility] Platelet mean volume (Bld) [Entitic vol] 10.7 fL 9.0 - 12.7 fL [facility] Platelets (Bld) [#/Vol] 70 10*3/uL Low 140 - 440 10*3/uL [facility] RBC (Bld) [#/Vol] 2.4 10*6/uL Low 3.80 - 5.2 0 10*6/uL [facility] WBC (Bld) [#/Vol] 6.7 10*3/uL 3.6 - 10.7 10*3/uL [facility] CBC WITH AUTO DIFFERENTIALon 12-02-2024 Basophils (Bld) [#/Vol] 0.0 10*3/uL Normal 0.0-0.2 [facility] Comment on above: Performed By: #### L [id number] ####Registration Coordinator: JESSY OWENS ([id number])[facility])[address] [place] [address] Basophils/100 WBC (Bld) 0.2 % Normal 0.0-2.0 [facility] Comment on above: Performed By: #### L [id number] ####Registration Coordinator: JESSY OWENS ([id number])[facility] ([facility])[address] [place] [address] Eosinophils (Bld) [#/Vol] 0.2 10*3/uL Normal 0.0-0.5 [facility] Comment on above: Performed By: #### L [id number] ####Registration Coordinator: JESSY OWENS ([id number])[facility])[address] [place] [address] Eosinophils/100 WBC (Bld) 2.7 % Normal 0.0-6.0 [facility] Comment on above: Performed By: #### L [id number] ####Registration Coordinator: JESSY OWENS ([id number])[facility])[address] [place] [address] Erythrocyte distribution width (RBC) [Ratio] 16.4 % High 11.5-15.0 [facility] Comment on above: Performed By: #### L [id number] ####Registration Coordinator: JESSY OWENS ([id number])[facility])[address] [place] [address] Hematocrit (Bld) [Volume fraction] 24.8 % Low 35.0-47.0 [facility] Comment on above: Performed By: #### L [id number] ####Registration Coordinator: JESSY OWENS ([id number])[facility])[address] [place] [address] Hemoglobin (Bld) [Mass/Vol] 8.0 g/dL Low 11.7-16.0 [facility] Comment on above: Performed By: #### L [id number] ####Registration Coordinator: JESSY OWENS ([id number])[facility] ([facility])[address] [place] [address] IMMATURE GRANS % 2.1 % High 0.0-2.0 [facility] Comment on above: Performed By: #### L [id number] ####Registration Coordinator: JESSY OWENS ([id number])[facility])[address] [place] [address] IMMATURE GRANS ABSOLUTE 0.1 10*3/uL High <0.1 [facility] Comment on above: Performed By: #### L [id number] ####Registration Coordinator: JESSY OWENS ([id number])[facility])[address] [place] [address] [place] IPF 5 Normal [facility] Comment on above: Performed By: #### L [id number] ####Registration Coordinator: JESSY OWENS ([id number])[facility])[address] [place] [address] Lymphocytes (Bld) [#/Vol] 1.2 10*3/uL Normal 1.0-4.3 [facility] Comment on above: Performed By: #### L [id number] ####Registration Coordinator: JESSY OWENS ([id number])[facility])[address] [place] [address] [place] Lymphocytes/100 WBC (Bld) 18.3 % Normal 15.0-45.0 [facility] Comment on above: Performed By: #### L [id number] ####Registration Coordinator: JESSY OWENS ([id number])[facility] [place] [address] MCH (RBC) [Entitic mass] 33.3 pg Normal 26.0-34.0 [facility] Comment on above: Performed By: #### L [id number] ####Registration Coordinator: JESSY OWENS ([id number])[facility])[address] [place] [address] MCHC 32.3 % Normal 30.5-36.0 [facility] [facility] Comment on above: Performed By: #### L [id number] ####Registration Coordinator: JESSY OWENS ([id number])[facility])[address] [place] [address] MCV (RBC) [Entitic vol] 103.3 fL High 77.0-99.0 [facility] Comment on above: Performed By: #### L [id number] ####Registration Coordinator: JESSY OWENS ([id number])[facility])[address] [place] [address] Monocytes (Bld) [#/Vol] 0.4 10*3/uL Normal 0.0-0.9 [facility] Comment on above: Performed By: #### L [id number] ####Registration Coordinator: JESSY OWENS ([id number])[facility])[address] [place] [address] Monocytes/100 WBC (Bld) 5.6 % Normal 5.0-13.0 [facility] Comment on above: Performed By: #### L [id number] ####Registration Coordinator: JESSY OWENS ([id number])[facility])[address] [place] [address] NEUTROPHILS ABSOLUTE 4.7 10*3/uL Normal 1.8-7.5 [facility] Comment on above: Performed By: #### L [id number] ####Registration Coordinator: JESSY OWENS ([id number])[facility])[address] [place] [address] Neutrophils/100 WBC (Bld) 71.1 % Normal 38.0-82.0 [facility] Comment on above: Performed By: #### L [id number] ####Registration Coordinator: JESSY OWENS ([id number])[facility])[address] [place] [address] NRBC 0.0 /100 WBCs Normal 0.0-2.0 [facility] Comment on above: Performed By: #### L [id number] ####Registration Coordinator: JESSY OWENS ([id number])[facility] ([facility])[address] [place] [address] Platelet mean volume (Bld) [Entitic vol] 10.7 fL Normal 9.0-12.7 [facility] Comment on above: Performed By: #### L [id number] ####Registration Coordinator: JESSY OWENS ([id number])[facility] ([facility])[address] [place] [address] Platelets (Bld) [#/Vol] 70 10*3/uL Low 140-440 [facility] Comment on above: Performed By: #### L [id number] ####Registration Coordinator: JESSY OWENS ([id number])[facility] ([facility])[address] [place] [address] RBC (Bld) [#/Vol] 2.40 10*6/uL Low 3.80-5.20 [facility] Comment on above: Performed By: #### L [id number] ####Registration Coordinator: JESSY OWENS ([id number])[facility] ([facility])[address] [place] [address] WBC (Bld) [#/Vol] 6.7 10*3/uL Normal 3.6-10.7 [facility] Comment on above: Performed By: #### L [id number] ####Registration Coordinator: JESSY OWENS ([id number])[facility])[address] [place] [address] Calcium.ionized [Moles/Vol]o n 12-02-2024 Calcium.ionized (Bld) [Moles/Vol] 4.8 mg/dL 4.30 - 5.20 mg/dL [facility] Interpretation and review of laboratory results Normal [facility] PH, IONIZED CALCIUM 7.46 7.31 - 7.46 [facility] - Chemistry and C hemistry - challengeon 12-02-2024 Glucose [Mass/Vol] 107 mg/dL High 70 - 100 mg/dL [facility] Glucose [Mass/Vol] 132 mg/dL High 70 - 100 mg/dL [facility] Glucose [Mass/Vol] 103 mg/dL High 70 - 100 mg/dL [facility] Glucose [Mass/Vol] 78 mg/dL 70 - 100 mg/dL [facility] Magnesium [Mass/Vol] 1.6 mg/dL 1.6 - 2 .6 mg/dL [facility] MAGNESIUMon 12-02-2024 Magnesium [Mass/Vol] 1.6 mg/dL Normal 1.6-2.6 [facility] Comment on above: Result Comment: TANA Wick COMMENTS:Higher values can be expected in females during menses. Performed By: #### L [id number], [id number] ####Registration Coordinator: JESSY OWENS ([id number])[facility])[address] [place] [address] Magnesium [Mass/Vol]on 12-02 Interpretation and review of laboratory results Normal [facility] No Panel Informationon 12-02 Interpretation and review of laboratory results Abnormal [facility] Interpretation and review of laboratory results Abnormal [facility] Interpretation and review of laboratory results Abnormal [facility] Interpretation and review of laboratory results Normal [facility] PHOSPHORUSon 12-02-2024 Phosphate [Mass/Vol] 2.0 mg/dL Low 2.3-4.7 [facility] Comment on above: Performed By: #### L [id number], [id number] ####Registration Coordinator: JESSY OWENS ([id number])[facility] ([facility])[address] [place] [address] Phosphate [Moles/Vol]on 11-17 Interpretation and review of laboratory results Abnormal [facility] Phosphate [Mass/Vol] 2 mg/dL Low 2.3 - 4 .7 mg/dL [facility] Progress Noteon 12-02-2024 Progress Note Normal [facility] 30on 12-01-2024 30 Normal [facility] [id number] 12-01-2024 [id number] Normal [facility] [id number] Normal [facility] BASIC METABOLIC PANELon 05 Anion gap [Moles/Vol] 7 mmol/L Normal 3-13 [facility] Comment on above: Performed By: #### L [id number] ####Registration Coordinator: JESSY OWENS ([id number])[facility] ([facility])[address] [place] [address] Calcium [Mass/Vol] 8.8 mg/dL Normal 8.8-10.0 [facility] Comment on above: Performed By: #### L [id number] ####Registration Coordinator: JESSY OWENS ([id number])[facility] ([facility])[address] [place] [address] Chloride [Moles/Vol] 108 mmol/L High 98-107 [facility] Comment on above: Performed By: #### L [id number] ####Registration Coordinator: JESSY OWENS ([id number])[facility] ([facility])[address] [place] [address] CO2 [Moles/Vol] 25 mmol/L Normal 23-31 [facility] Comment on above: Performed By: #### L AB15 ####Registration Coordinator: JESSY OWENS ([id number])[facility] ([facility])[address] [place] [address] Creatinine [Mass/Vol] 0.53 mg/dL Low 0.57-1.11 [facility] Comment on above: Performed By: #### L AB15 ####Registration Coordinator: JESSY OWENS ([id number])[facility] ([facility])[address] [place] [address] GLOMERULAR FILTRATION RATE ML/MIN/1.73 SQ M.PREDICTED >90.0 Normal >60.0 [facility] Comment on above: Result Comment: Calc ulation based on the Chronic Kidney Disease Epidemiology Collaboration (CKD-EPI) equation refit without adjustment for race Performed By: #### L AB15 ####Registration Coordinator: JESSY OWENS ([id number])[facility])[address] [place] [address] Glucose [Mass/Vol] 100 mg/dL Normal 82-115 [facility] Comment on above: Performed By: #### L AB15 ####Registration Coordinator: JESSY OWENS ([id number])[facility])[address] [place] [address] Potassium [Moles/Vol] 3.4 mmol/L Low 3.5-5.1 [facility] Comment on above: Result Comment: [facility] potassium values may be up to 0.5 mmol/L lower than serum values. Performed By: #### L AB15 ####Registration Coordinator: JESSY OWENS ([id number])[facility])[address] [place] [address] Sodium [Moles/Vol] 140 mmol/L Normal 136-145 [facility] Comment on above: Performed By: #### L AB15 ####Registration Coordinator: JESSY OWENS ([id number])[facility])[address] [place] [address] Urea nitrogen [Mass/Vol] 14 mg/dL Normal 9-23 [facility] Comment on above: Performed By: #### L AB15 ####Registration Coordinator: JESSY OWENS ([id number])[facility])[address] [place] [address] Anion gap [Moles/Vol] 7 mmol/L Normal 3-13 [facility] Comment on above: Performed By: #### L AB15 ####Registration Coordinator: JESSY OWENS ([id number])[facility])[address] [place] [address] Calcium [Mass/Vol] 8.5 mg/dL Low 8.8-10.0 [facility] Comment on above: Performed By: #### L AB15 ####Registration Coordinator: JESSY OWENS ([id number])[facility] ([facility])[address] [place] [address] Chloride [Moles/Vol] 108 mmol/L High 98-107 [facility] Comment on above: Performed By: #### L AB15 ####Registration Coordinator: JESSY OWENS ([id number])[facility])[address] [place] [address] CO2 [Moles/Vol] 25 mmol/L Normal 23-31 [facility] Comment on above: Performed By: #### L AB15 ####Registration Coordinator: JESSY OWENS ([id number])[facility])[address] [place] [address] Creatinine [Mass/Vol] 0.53 mg/dL Low 0.57-1.11 [facility] Comment on above: Performed By: #### L AB15 ####Registration Coordinator: JESSY OWENS ([id number])[facility])[address] [place] [address] GLOMERULAR FILTRATION RATE ML/MIN/1.73 SQ M.PREDICTED >90.0 Normal >60.0 [facility] Comment on above: Result Comment: Calc ulation based on the Chronic Kidney Disease Epidemiology Collaboration (CKD-EPI) equation refit without adjustment for race Performed By: #### L AB15 ####Registration Coordinator: JESSY OWENS ([id number])[facility])[address] [place] [address] Glucose [Mass/Vol] 98 mg/dL Normal 82-115 [facility] Comment on above: Performed By: #### L AB15 ####Registration Coordinator: JESSY OWENS ([id number])[facility])[address] [place] [address] Potassium [Moles/Vol] 2.9 mmol/L Low 3.5-5.1 [facility] Comment on above: Result Comment: [facility] potassium values may be up to 0.5 mmol/L lower than serum values. Performed By: #### L AB15 ####Registration Coordinator: JESSY OWENS ([id number])[facility] ([facility])[address] [place] [address] Sodium [Moles/Vol] 140 mmol/L Normal 136-145 [facility] Comment on above: Performed By: #### L AB15 ####Registration Coordinator: JESSY OWENS ([id number])[facility] [place] [address] Urea nitrogen [Mass/Vol] 11 mg/dL Normal 9-23 [facility] Comment on above: Performed By: #### L AB15 ####Registration Coordinator: JESSY OWENS ([id number])[facility] ([facility])[address] [place] [address] Basic metabolic 1998 panelon 12-01-2024 Anion gap [Moles/Vol] 7 mmol/L 3 - 13 mmol/L [facility] Calcium [Mass/Vol] 8.8 mg/dL 8.8 - 10. 0 mg/dL [facility] Chloride [Moles/Vol] 108 mmol/L High 98 - 10 7 mmol/L [facility] CO2 [Moles/Vol] 25 mmol/L 23 - 31 mmol/L [facility] Creatinine [Mass/Vol] 0.53 mg/dL Low 0.57 - 1.11 mg/dL [facility] GFR/1.73 sq M.predicted (S/P/Bld) [Vol rate/Area] - PINF [facility] Glucose [Mass/Vol] 100 mg/dL 82 - 115 mg/dL [facility] Interpretation and review of laboratory results Abnormal [facility] Potassium [Moles/Vol] 3.4 mmol/L Low 3.5 - 5.1 mmol/L [facility] Sodium [Moles/Vol] 140 mmol/L 136 - 145 mmol/L [facility] Urea nitrogen [Mass/Vol] 14 mg/dL 9 - 23 mg/d L [facility] Anion gap [Moles/Vol] 7 mmol/L 3 - 13 mmol/L [facility] Calcium [Mass/Vol] 8.5 mg/dL Low 8.8 - 10. 0 mg/dL [facility] Chloride [Moles/Vol] 108 mmol/L High 98 - 10 7 mmol/L [facility] CO2 [Moles/Vol] 25 mmol/L 23 - 31 mmol/L [facility] Creatinine [Mass/Vol] 0.53 mg/dL Low 0.57 - 1.11 mg/dL [facility] GFR/1.73 sq M.predicted (S/P/Bld) [Vol rate/Area] - PINF [facility] Glucose [Mass/Vol] 98 mg/dL 82 - 115 mg/dL [facility] Interpretation and review of laboratory results Abnormal [facility] Potassium [Moles/Vol] 2.9 mmol/L Low 3.5 - 5.1 mmol/L [facility] Sodium [Moles/Vol] 140 mmol/L 136 - 145 mmol/L [facility] Urea nitrogen [Mass/Vol] 11 mg/dL 9 - 23 mg/d L [facility] CALCIUM, IONIZEDon CALCIUM IONIZED 4.60 mg/dL Normal 4.30-5.20 [facility] Comment on above: Performed By: #### L [id number] ####Registration Coordinator: JESSY OWENS ([id number])[facility] ([facility])[address] [place] [address] PH, IONIZED CALCIUM 7.48 High 7.31-7.46 [facility] Comment on above: Performed By: #### L AB54 ####Registration Coordinator: JESSY OWENS ([id number])[facility])[address] [place] [address] CBC W Auto Differential pane l (Bld)on 12-01-2024 Basophils (Bld) [#/Vol] 0 10*3/uL 0.0 - 0.2 10*3/uL [facility] Basophils/100 WBC (Bld) 0.3 % 0.0 - 2.0 % [facility] Eosinophils (Bld) [#/Vol] 0.1 10*3/uL 0.0 - 0.5 10*3/uL [facility] Eosinophils/100 WBC (Bld) 1.3 % 0.0 - 6.0 % [facility] Erythrocyte distribution width (RBC) [Ratio] 16.6 % High 11.5 - 15.0 % [facility] Hematocrit (Bld) [Volume fraction] 23.1 % Low 35.0 - 47.0 % [facility] Hemoglobin (Bld) [Mass/Vol] 7.6 g/dL Low 11.7 - 16.0 g/dL [facility] Immature granulocytes (Bld) [#/Vol] 0.3 10*3/uL High NINF - 0.1 10*3/uL [facility] Immature granulocytes/100 WBC (Bld) 4.9 % High 0.0 - 2.0 % [facility] Interpretation and review of laboratory results Abnormal [facility] IPF 4 [facility] Lymphocytes (Bld) [#/Vol] 1.2 10*3/uL 1.0 - 4.3 10*3/uL [facility] Lymphocytes/100 WBC (Bld) 17.8 % 15.0 - 45.0 % [facility] MCH (RBC) [Entitic mass] 33.9 pg 26. 0 - 34.0 pg [facility] MCHC (RBC) [Mass/Vol] 32.9 % 30.5 - 36.0 % [facility] MCV (RBC) [Entitic vol] 103.1 fL High 77.0 - 99.0 fL [facility] Monocytes (Bld) [#/Vol] 0.5 10*3/uL 0.0 - 0.9 10*3/uL [facility] Monocytes/100 WBC (Bld) 6.5 % 5.0 - 13.0 % [facility] Neutrophils (Bld) [#/Vol] 4.8 10*3/uL 1.8 - 7.5 10*3/uL [facility] Neutrophils/100 WBC (Bld) 69.2 % 38.0 - 82.0 % [facility] Nucleated RBC/100 WBC (Bld) [Ratio] 0.6 % [facility] Platelet mean volume (Bld) [Entitic vol] 10.9 fL 9.0 - 12.7 fL [facility] Platelets (Bld) [#/Vol] 60 10*3/uL Low 140 - 440 10*3/uL [facility] RBC (Bld) [#/Vol] 2.24 10*6/uL Low 3.80 - 5.2 0 10*6/uL [facility] WBC (Bld) [#/Vol] 6.9 10*3/uL 3.6 - 10.7 10*3/uL [facility] CBC WITH AUTO DIFFERENTIALon 12-01-2024 Basophils (Bld) [#/Vol] 0.0 10*3/uL Normal 0.0-0.2 [facility] Comment on above: Performed By: #### L [id number] ####Registration Coordinator: JESSY OWENS ([id number])[facility] ([facility])[address] [place] [address] Basophils/100 WBC (Bld) 0.3 % Normal 0.0-2.0 [facility] Comment on above: Performed By: #### L [id number] ####Registration Coordinator: JESSY OWENS ([id number])[facility])[address] [place] [address] Eosinophils (Bld) [#/Vol] 0.1 10*3/uL Normal 0.0-0.5 [facility] Comment on above: Performed By: #### L [id number] ####Registration Coordinator: JESSY OWENS ([id number])[facility] ([facility])[address] [place] [address] Eosinophils/100 WBC (Bld) 1.3 % Normal 0.0-6.0 [facility] Comment on above: Performed By: #### L [id number] ####Registration Coordinator: JESSY OWENS ([id number])[facility])[address] [place] [address] Erythrocyte distribution width (RBC) [Ratio] 16.6 % High 11.5-15.0 [facility] Comment on above: Performed By: #### L [id number] ####Registration Coordinator: JESSY OWENS ([id number])[facility])[address] [place] [address] Hematocrit (Bld) [Volume fraction] 23.1 % Low 35.0-47.0 [facility] Comment on above: Performed By: #### L [id number] ####Registration Coordinator: JESSY OWENS ([id number])[facility])[address] [place] [address] [place] Hemoglobin (Bld) [Mass/Vol] 7.6 g/dL Low 11.7-16.0 [facility] Comment on above: Performed By: #### L [id number] ####Registration Coordinator: JESSY OWENS ([id number])[facility])[address] [place] [address] IMMATURE GRANS % 4.9 % High 0.0-2.0 [facility] Comment on above: Performed By: #### L [id number] ####Registration Coordinator: JESSY OWENS ([id number])[facility])[address] [place] [address] IMMATURE GRANS ABSOLUTE 0.3 10*3/uL High <0.1 [facility] Comment on above: Performed By: #### L [id number] ####Registration Coordinator: JESSY OWENS ([id number])[facility])[address] [place] [address] IPF 4 Normal [facility] Comment on above: Performed By: #### L [id number] ####Registration Coordinator: JESSY OWENS ([id number])[facility])[address] [place] [address] Lymphocytes (Bld) [#/Vol] 1.2 10*3/uL Normal 1.0-4.3 [facility] Comment on above: Performed By: #### L [id number] ####Registration Coordinator: JESSY OWENS ([id number])[facility])[address] [place] [address] Lymphocytes/100 WBC (Bld) 17.8 % Normal 15.0-45.0 [facility] Comment on above: Performed By: #### L [id number] ####Registration Coordinator: JESSY OWENS ([id number])[facility])[address] [place] [address] MCH (RBC) [Entitic mass] 33.9 pg Normal 26.0-34.0 [facility] Comment on above: Performed By: #### L [id number] ####Registration Coordinator: JESSY OWENS ([id number])[facility] ([facility])[address] [place] [address] MCHC 32.9 % Normal 30.5-36.0 [facility] Comment on above: Performed By: #### L [id number] ####Registration Coordinator: JESSY OWENS ([id number])[facility] ([facility])[address] [place] [address] MCV (RBC) [Entitic vol] 103.1 fL High 77.0-99.0 [facility] Comment on above: Performed By: #### L [id number] ####Registration Coordinator: JESSY OWENS ([id number])[facility] ([facility])[address] [place] [address] Monocytes (Bld) [#/Vol] 0.5 10*3/uL Normal 0.0-0.9 [facility] Comment on above: Performed By: #### L [id number] ####Registration Coordinator: JESSY OWENS ([id number])[facility] ([facility])[address] [place] [address] Monocytes/100 WBC (Bld) 6.5 % Normal 5.0-13.0 [facility] Comment on above: Performed By: #### L [id number] ####Registration Coordinator: JESSY OWENS ([id number])[facility] ([facility])[address] [place] [address] NEUTROPHILS ABSOLUTE 4.8 10*3/uL Normal 1.8-7.5 [facility] Comment on above: Performed By: #### L [id number] ####Registration Coordinator: JESSY OWENS ([id number])[facility] ([facility])[address] [place] [address] Neutrophils/100 WBC (Bld) 69.2 % Normal 38.0-82.0 [facility] Comment on above: Performed By: #### L [id number] ####Registration Coordinator: JESSY OWENS ([id number])[facility] ([facility])[address] [place] [address] NRBC 0.6 /100 WBCs Normal 0.0-2.0 [facility] Comment on above: Performed By: #### L [id number] ####Registration Coordinator: JESSY OWENS ([id number])[facility] ([facility])[address] [place] [address] Platelet mean volume (Bld) [Entitic vol] 10.9 fL Normal 9.0-12.7 [facility] Comment on above: Performed By: #### L [id number] ####Registration Coordinator: JESSY OWENS ([id number])[facility] ([facility])[address] [place] [address] Platelets (Bld) [#/Vol] 60 10*3/uL Low 140-440 S [facility] Comment on above: Performed By: #### L [id number] ####Registration Coordinator: JESSY OWENS ([id number])[facility] ([facility])[address] [place] [address] RBC (Bld) [#/Vol] 2.24 10*6/uL Low 3.80-5.20 [facility] Comment on above: Performed By: #### L [id number] ####Registration Coordinator: JESSY OWENS ([id number])[facility] ([facility])[address] [place] [address] WBC (Bld) [#/Vol] 6.9 10*3/uL Normal 3.6-10.7 [facility] Comment on above: Performed By: #### L [id number] ####Registration Coordinator: JESSY OWENS ([id number])[facility] ([facility])[address] [place] [address] Calcium.ionized [Moles/Vol]O rdered By: Ari Chan on 12-01-2024 Calcium.ionized (Bld) [Moles/Vol] 4.6 mg/dL 4.30 - 5.20 mg/dL [facility] Interpretation and review of laboratory results Abnormal [facility] PH, IONIZED CALCIUM 7.48 High 7.31 - 7.46 [facility] Consulton 12-01-2024 Consult Normal [facility] - Chemistry and C hemistry - challengeon 12-01-2024 Glucose [Mass/Vol] 113 mg/dL High 70 - 100 mg/dL [facility] Glucose [Mass/Vol] 139 mg/dL High 70 - 100 mg/dL [facility] Glucose [Mass/Vol] 96 mg/dL 70 - 100 mg/dL [facility] Glucose [Mass/Vol] 73 mg/dL 70 - 100 mg/dL [facility] Magnesium [Mass/Vol] 2 mg/dL 1.6 - 2 .6 mg/dL [facility] MAGNESIUMon 12-01-2024 Magnesium [Mass/Vol] 2.0 mg/dL Normal 1.6-2.6 [facility] Comment on above: Result Comment: TANA Wick COMMENTS:Higher values can be expected in females during menses. Performed By: #### L [id number], [id number] ####Registration Coordinator: JESSY OWENS ([id number])[facility])[address] [place] [address] Magnesium [Mass/Vol]on 12-01 [facility] No Panel Informationon 12-01 Interpretation and review of laboratory results Abnormal [facility] Interpretation and review of laboratory results Abnormal [facility] Interpretation and review of laboratory results Normal [facility] Interpretation and review of laboratory results Normal [facility] Interpretation and review of laboratory results Normal [facility] PHOSPHORUSon 12-01-2024 Phosphate [Mass/Vol] 2.7 mg/dL Normal 2.3-4.7 [facility] Comment on above: Performed By: #### L [id number], [id number] ####Registration Coordinator: JESSY OWENS ([id number])[facility] ([facility])[address] [place] [address] [place] Phosphate [Moles/Vol]on 11-17 Phosphate [Mass/Vol] 2.7 mg/dL 2.3 - 4 .7 mg/dL [facility] Progress Noteon 12-01-2024 Progress Note Normal [facility] Progress Note Normal [facility] Progress Note Normal [facility] 30on 11-30-2024 30 Normal [facility] 30 Normal [facility] [id number] 11-30-2024 [id number] Normal [facility] BASIC METABOLIC PANELon 11-17 Anion gap [Moles/Vol] 11 mmol/L Normal 3-13 [facility] Comment on above: Performed By: #### L AB15 ####Registration Coordinator: JESSY OWENS ([id number])[facility] ([facility])[address] [place] [address] Calcium [Mass/Vol] 9.2 mg/dL Normal 8.8-10.0 [facility] Comment on above: Performed By: #### L AB15 ####Registration Coordinator: JESSY OWENS ([id number])[facility] ([facility])[address] [place] [address] Chloride [Moles/Vol] 108 mmol/L High 98-107 [facility] Comment on above: Performed By: #### L AB15 ####Registration Coordinator: JESSY OWENS ([id number])[facility] ([facility])[address] [place] [address] CO2 [Moles/Vol] 24 mmol/L Normal 23-31 [facility] Comment on above: Performed By: #### L AB15 ####Registration Coordinator: JESSY OWENS ([id number])[facility] ([facility])[address] [place] [address] Creatinine [Mass/Vol] 0.63 mg/dL Normal 0.57-1.11 [facility] Comment on above: Performed By: #### L AB15 ####Registration Coordinator: JESSY OWENS ([id number])[facility])[address] [place] [address] [place] GLOMERULAR FILTRATION RATE ML/MIN/1.73 SQ M.PREDICTED >90.0 Normal >60.0 [facility] Comment on above: Result Comment: Calc ulation based on the Chronic Kidney Disease Epidemiology Collaboration (CKD-EPI) equation refit without adjustment for race Performed By: #### L AB15 ####Registration Coordinator: JESSY OWENS ([id number])[facility] ([facility])[address] [place] [address] Glucose [Mass/Vol] 82 mg/dL Normal 82-115 [facility] Comment on above: Performed By: #### L AB15 ####Registration Coordinator: JESSY OWENS ([id number])[facility] ([facility])[address] [place] [address] Potassium [Moles/Vol] 2.3 mmol/L Critically low 3.5-5.1 [facility] Comment on above: Result Comment: [facility] potassium values may be up to 0.5 mmol/L lower than serum values. Performed By: #### L AB15 ####Registration Coordinator: JESSY OWENS ([id number])[facility] ([facility])[address] [place] [address] Sodium [Moles/Vol] 143 mmol/L Normal 136-145 [facility] Comment on above: Performed By: #### L AB15 ####Registration Coordinator: JESSY OWENS ([id number])[facility] ([facility])[address] [place] [address] Urea nitrogen [Mass/Vol] 12 mg/dL Normal 9-23 [facility] Comment on above: Performed By: #### L AB15 ####Registration Coordinator: JESSY OWENS ([id number])[facility] ([facility])[address] [place] [address] Anion gap [Moles/Vol] 6 mmol/L Normal 3-13 [facility] Comment on above: Performed By: #### L AB15 ####Registration Coordinator: JESSY OWENS ([id number])[facility] ([facility])[address] [place] [address] [place] Calcium [Mass/Vol] 8.7 mg/dL Low 8.8-10.0 [facility] Comment on above: Performed By: #### L AB15 ####Registration Coordinator: JESSY OWENS ([id number])[facility] ([facility])[address] [place] [address] Chloride [Moles/Vol] 112 mmol/L High 98-107 [facility] Comment on above: Performed By: #### L AB15 ####Registration Coordinator: JESSY OWENS ([id number])[facility])[address] [place] [address] CO2 [Moles/Vol] 22 mmol/L Low 23-31 [facility] Comment on above: Performed By: #### L AB15 ####Registration Coordinator: JESSY OWENS ([id number])[facility] ([facility])[address] [place] [address] Creatinine [Mass/Vol] 0.57 mg/dL Normal 0.57-1.11 [facility] Comment on above: Performed By: #### L AB15 ####Registration Coordinator: JESSY OWENS ([id number])[facility] ([facility])[address] [place] [address] GLOMERULAR FILTRATION RATE ML/MIN/1.73 SQ M.PREDICTED >90.0 Normal >60.0 [facility] Comment on above: Result Comment: Calc ulation based on the Chronic Kidney Disease Epidemiology Collaboration (CKD-EPI) equation refit without adjustment for race Performed By: #### L AB15 ####Registration Coordinator: JESSY OWENS ([id number])[facility] ([facility])[address] [place] [address] Glucose [Mass/Vol] 112 mg/dL Normal 82-115 [facility] Comment on above: Performed By: #### L AB15 ####Registration Coordinator: JESSY OWENS ([id number])[facility] ([facility])[address] [place] [address] [place] Potassium [Moles/Vol] 3.0 mmol/L Low 3.5-5.1 [facility] Comment on above: Result Comment: [facility] potassium values may be up to 0.5 mmol/L lower than serum values. Performed By: #### L AB15 ####Registration Coordinator: JESSY [id number])[facility])[address] [place] [address] Sodium [Moles/Vol] 140 mmol/L Normal 136-145 [facility] Comment on above: Performed By: #### L AB15 ####Registration Coordinator: JESSY OWENS ([id number])[facility] ([facility])[address] [place] [address] Urea nitrogen [Mass/Vol] 13 mg/dL Normal 9-23 [facility] Comment on above: Performed By: #### L AB15 ####Registration Coordinator: JESSY OWENS ([id number])[facility] ([facility])[address] [place] [address] Anion gap [Moles/Vol] 8 mmol/L Normal 3-13 [facility] Comment on above: Performed By: #### L AB113, LAB15, [id number] ####Registration Coordinator: JESSY OWENS ([id number])[facility] ([facility])[address] [place] [address] Calcium [Mass/Vol] 8.6 mg/dL Low 8.8-10.0 [facility] Comment on above: Performed By: #### L AB113, LAB15, [id number] ####Registration Coordinator: JESSY OWENS ([id number])[facility] ([facility])[address] [place] [address] [place] Chloride [Moles/Vol] 110 mmol/L High 98-107 [facility] Comment on above: Performed By: #### L AB113, LAB15, [id number] ####Registration Coordinator: JESSY OWENS ([id number])[facility] ([facility])[address] [place] [address] [place] CO2 [Moles/Vol] 20 mmol/L Low 23-31 [facility] Comment on above: Performed By: #### L AB113, LAB15, [id number] ####Registration Coordinator: JESSY OWENS ([id number])[facility] ([facility])[address] [place] [address] [place] Creatinine [Mass/Vol] 0.55 mg/dL Low 0.57-1.11 [facility] Comment on above: Performed By: #### L AB113, LAB15, [id number] ####Registration Coordinator: JESSY OWENS ([id number])[address] GLOMERULAR FILTRATION RATE ML/MIN/1.73 SQ M.PREDICTED >90.0 Normal >60.0 [facility] Comment on above: Result Comment: Calc ulation based on the Chronic Kidney Disease Epidemiology Collaboration (CKD-EPI) equation refit without adjustment for race Performed By: #### L AB113, LAB15, [id number] ####Registration Coordinator: JESSY OWENS ([id number])[address] Glucose [Mass/Vol] 112 mg/dL Normal 82-115 [facility] Comment on above: Performed By: #### L AB113, LAB15, [id number] ####Registration Coordinator: JESSY OWENS ([id number])[address] Potassium [Moles/Vol] 3.4 mmol/L Low 3.5-5.1 [facility] Comment on above: Result Comment: [facility] potassium values may be up to 0.5 mmol/L lower than serum values. Performed By: #### L AB113, LAB15, [id number] ####Registration Coordinator: JESSY OWENS ([id number])[address] Sodium [Moles/Vol] 138 mmol/L Normal 136-145 [facility] Comment on above: Performed By: #### L AB113, LAB15, [id number] ####Registration Coordinator: JESSY OWENS ([id number])[address] Urea nitrogen [Mass/Vol] 15 mg/dL Normal 9-23 [facility] Comment on above: Performed By: #### L AB113, LAB15, [id number] ####Registration Coordinator: JESSY [id number])[facility])[address] [place] [address] Bacteria identified Anaer cx Nom (Unsp spec)Ordered By: Michael Rosario on 11-30-2024 Interpretation and review of laboratory results Abnormal [facility] Basic metabolic 1998 panelon 11-30-2024 Anion gap [Moles/Vol] 11 mmol/L 3 - 13 mmol/L [facility] Calcium [Mass/Vol] 9.2 mg/dL 8.8 - 10. 0 mg/dL [facility] Chloride [Moles/Vol] 108 mmol/L High 98 - 10 7 mmol/L [facility] CO2 [Moles/Vol] 24 mmol/L 23 - 31 mmol/L [facility] Creatinine [Mass/Vol] 0.63 mg/dL 0.57 - 1.11 mg/dL [facility] GFR/1.73 sq M.predicted (S/P/Bld) [Vol rate/Area] - PINF [facility] Glucose [Mass/Vol] 82 mg/dL 82 - 115 mg/dL [facility] Interpretation and review of laboratory results Abnormal [facility] Potassium [Moles/Vol] 2.3 mmol/L Critically low 3.5 - 5.1 mmol/L [facility] Sodium [Moles/Vol] 143 mmol/L 136 - 145 mmol/L [facility] Urea nitrogen [Mass/Vol] 12 mg/dL 9 - 23 mg/d L [facility] Anion gap [Moles/Vol] 6 mmol/L 3 - 13 mmol/L [facility] Calcium [Mass/Vol] 8.7 mg/dL Low 8.8 - 10. 0 mg/dL [facility] Chloride [Moles/Vol] 112 mmol/L High 98 - 10 7 mmol/L [facility] CO2 [Moles/Vol] 22 mmol/L Low 23 - 31 mmol/L [facility] Creatinine [Mass/Vol] 0.57 mg/dL 0.57 - 1.11 mg/dL [facility] GFR/1.73 sq M.predicted (S/P/Bld) [Vol rate/Area] - PINF [facility] Glucose [Mass/Vol] 112 mg/dL 82 - 115 mg/dL [facility] Interpretation and review of laboratory results Abnormal [facility] Potassium [Moles/Vol] 3 mmol/L Low 3.5 - 5.1 mmol/L [facility] Sodium [Moles/Vol] 140 mmol/L 136 - 145 mmol/L [facility] Urea nitrogen [Mass/Vol] 13 mg/dL 9 - 23 mg/d L [facility] Anion gap [Moles/Vol] 8 mmol/L 3 - 13 mmol/L [facility] Calcium [Mass/Vol] 8.6 mg/dL Low 8.8 - 10. 0 mg/dL [facility] Chloride [Moles/Vol] 110 mmol/L High 98 - 10 7 mmol/L [facility] CO2 [Moles/Vol] 20 mmol/L Low 23 - 31 mmol/L [facility] Creatinine [Mass/Vol] 0.55 mg/dL Low 0.57 - 1.11 mg/dL [facility] GFR/1.73 sq M.predicted (S/P/Bld) [Vol rate/Area] - PINF [facility] Glucose [Mass/Vol] 112 mg/dL 82 - 115 mg/dL [facility] Interpretation and review of laboratory results Abnormal [facility] Potassium [Moles/Vol] 3.4 mmol/L Low 3.5 - 5.1 mmol/L [facility] Sodium [Moles/Vol] 138 mmol/L 136 - 145 mmol/L [facility] Urea nitrogen [Mass/Vol] 15 mg/dL 9 - 23 mg/d L [facility] CALCIUM, IONIZEDon CALCIUM IONIZED 4.70 mg/dL Normal 4.30-5.20 [facility] Comment on above: Performed By: #### L AB54 ####Registration Coordinator: JESSY OWENS ([id number])[address] PH, IONIZED CALCIUM 7.48 High 7.31-7.46 [facility] Comment on above: Performed By: #### L AB54 ####Registration Coordinator: JESSY OWENS ([id number])[address] CBC W Auto Differential pane l (Bld)on 11-30-2024 Erythrocyte distribution width (RBC) [Ratio] 15.9 % High 11.5 - 15.0 % [facility] Hematocrit (Bld) [Volume fraction] 24.7 % Low 35.0 - 47.0 % [facility] Hemoglobin (Bld) [Mass/Vol] 8 g/dL Low 11.7 - 16.0 g/dL [facility] Interpretation and review of laboratory results Abnormal [facility] IPF 4 [facility] MCH (RBC) [Entitic mass] 33.2 pg 26. 0 - 34.0 pg [facility] MCHC (RBC) [Mass/Vol] 32.4 % 30.5 - 36.0 % [facility] MCV (RBC) [Entitic vol] 102.5 fL High 77.0 - 99.0 fL [facility] Platelet mean volume (Bld) [Entitic vol] 9.9 fL 9.0 - 12.7 fL [facility] Platelets (Bld) [#/Vol] 61 10*3/uL Low 140 - 440 10*3/uL [facility] RBC (Bld) [#/Vol] 2.41 10*6/uL Low 3.80 - 5.2 0 10*6/uL [facility] WBC (Bld) [#/Vol] 7.6 10*3/uL 3.6 - 10.7 10*3/uL [facility] CBC WITH AUTO DIFFERENTIALon 11-30-2024 Erythrocyte distribution width (RBC) [Ratio] 15.9 % High 11.5-15.0 [facility] Comment on above: Performed By: #### L [id number], [id number] ####Registration Coordinator: JESSY [id number])[address] Hematocrit (Bld) [Volume fraction] 24.7 % Low 35.0-47.0 [facility] Comment on above: Performed By: #### L [id number], [id number] ####Registration Coordinator: JESSY [id number])[address] Hemoglobin (Bld) [Mass/Vol] 8.0 g/dL Low 11.7-16.0 [facility] Comment on above: Performed By: #### L [id number], [id number] ####Registration Coordinator: JESSY [id number])[facility] [place] [address] IPF 4 Normal [facility] Comment on above: Performed By: #### L [id number], [id number] ####Registration Coordinator: JESSY OWENS ([id number])[facility] ([facility])[address] [place] [address] MCH (RBC) [Entitic mass] 33.2 pg Normal 26.0-34.0 [facility] Comment on above: Performed By: #### L [id number], [id number] ####Registration Coordinator: JESSY OWENS ([id number])[facility])[address] [place] [address] MCHC 32.4 % Normal 30.5-36.0 [facility] Comment on above: Performed By: #### L [id number], [id number] ####Registration Coordinator: JESSY OWENS ([id number])[facility] ([facility])[address] [place] [address] MCV (RBC) [Entitic vol] 102.5 fL High 77.0-99.0 [facility] Comment on above: Performed By: #### L [id number], [id number] ####Registration Coordinator: JESSY OWENS ([id number])[facility] ([facility])[address] [place] [address] Platelet mean volume (Bld) [Entitic vol] 9.9 fL Normal 9.0-12.7 [facility] Comment on above: Performed By: #### L [id number], [id number] ####Registration Coordinator: JESSY OWENS ([id number])[facility])[address] [place] [address] Platelets (Bld) [#/Vol] 61 10*3/uL Low 140-440 [facility] Comment on above: Performed By: #### L [id number], [id number] ####Registration Coordinator: JESSY OWENS ([id number])[facility])[address] [place] [address] RBC (Bld) [#/Vol] 2.41 10*6/uL Low 3.80-5.20 [facility] Comment on above: Performed By: #### L [id number], [id number] ####Registration Coordinator: JESSY OWENS ([id number])[facility] ([facility])[address] [place] [address] WBC (Bld) [#/Vol] 7.6 10*3/uL Normal 3.6-10.7 [facility] Comment on above: Performed By: #### L [id number], [id number] ####Registration Coordinator: JESSY OWENS ([id number])[facility] ([facility])[address] [place] [address] Calcium.ionized [Moles/Vol]O rdered By: Lucien Madrigal on 11-30-2024 Calcium.ionized (Bld) [Moles/Vol] 4.7 mg/dL 4.30 - 5.20 mg/dL [facility] Interpretation and review of laboratory results Abnormal [facility] PH, IONIZED CALCIUM 7.48 High 7.31 - 7.46 [facility] - Chemistry and C hemistry - challengeon 11-30-2024 Magnesium [Mass/Vol] 1.9 mg/dL 1.6 - 2 .6 mg/dL [facility] - Hematology and Cell countson 11-30-2024 Anisocytosis Ql (Bld) Slight Abnormal (none) [facility] Band form neutrophils (Bld) [#/Vol] 0.3 10*3/uL High NINF - 0.0 10*3/uL [facility] Band form neutrophils/100 WBC (Bld) 4 % High NINF - 0 % [facility] Lymphocytes (Bld) [#/Vol] 0.6 10*3/uL Low 1.0 - 4.3 10*3/uL [facility] Lymphocytes/100 WBC (Bld) 8 % Low 15 - 45 % [facility] Macrocytes Ql (Bld) Slight Abnormal (none) [facility] Metamyelocytes (Bld) [#/Vol] 0.2 10*3/uL High NINF - 0.0 10*3/uL [facility] Metamyelocytes/100 WBC (Bld) 2 % High NINF - 0 % [facility] Monocytes (Bld) [#/Vol] 0.5 10*3/uL 0.0 - 0.9 10*3/uL [facility] Monocytes/100 WBC (Bld) 6 % 5 - 13 % [facility] Myelocytes (Bld) [#/Vol] 0.1 10*3/uL High BRITTANI F - 0.0 10*3/uL [facility] Myelocytes/100 WBC (Bld) 1 % High NINF - 0 % [facility] Neutrophils (Bld) [#/Vol] 6.4 10*3/uL 1.8 - 7.5 10*3/uL [facility] Nucleated RBC/100 WBC (Bld) [Ratio] 4 % High 0 - 2 % [facility] RBC morphology finding Nom (Bld) abnormal [facility] Segmented neutrophils/100 WBC (Bld) 80 % 38 - 82 % [facility] - Microbiology an d Antimicrobial susceptibilityOrdered By: Michael Rosario on 11-30-2024 Bacteria identified Anaer cx Nom (Unsp spec) Mixed aerobic and anaerobic bacteria present. [facility] Bacteria identified Anaer cx Nom (Unsp spec) Many Bacteroides fragilis Abnormal [facility] MAGNESIUMon 11-30-2024 Magnesium [Mass/Vol] 1.9 mg/dL Normal 1.6-2.6 [facility] Comment on above: Result Comment: TANA Wick COMMENTS:Higher values can be expected in females during menses. Performed By: #### L AB113, LAB15, [id number] ####Registration Coordinator: JESSY OWENS ([id number])[facility] [place] [address] MANUAL DIFFERENTIAL (CELLAVI ZOIE)on 11-30-2024 ANISOCYTOSIS PRESENCE IN BLOOD BY LIGHT MICROSCOPY Slight Abnormal (none) [facility] Comment on above: Performed By: #### L [id number], [id number] ####Registration Coordinator: JESSY OWENS ([id number])[facility] [place] [address] BAND NEUTROPHILS TOTAL PER COUNTED LEUKOCYTES BY MANUAL COUNT 4 Normal [facility] Comment on above: Performed By: #### L [id number], [id number] ####Registration Coordinator: JESSY OWENS ([id number])[facility] ([facility])[address] [place] [address] [place] BANDS (10*3/UL) IN BLOOD-CELLAVISION 0.3 10*3/uL High <=0.0 [facility] Comment on above: Performed By: #### L [id number], [id number] ####Registration Coordinator: JESSY OWENS ([id number])[facility] ([facility])[address] [place] [address] BASOPHILS TOTAL PER COUNTED LEUKOCYTES BY MANUAL COUNT Normal [facility] Comment on above: Performed By: #### L [id number], [id number] ####Registration Coordinator: JESSY OWENS ([id number])[facility] [place] [address] BLASTS TOTAL PER COUNTED LEUKOCYTES BY MANUAL COUNT [facility] Comment on above: Performed By: #### L [id number], [id number] ####Registration Coordinator: JESSY OWENS ([id number])[facility] [place] [address] EOSINOPHILS TOTAL PER COUNTED LEUKOCYTES BY MANUAL COUNT Normal [facility] Comment on above: Performed By: #### L [id number], [id number] ####Registration Coordinator: JESSY OWENS ([id number])[facility] [place] [address] [place] LYMPHOCYTES (10*3/UL) IN BLOOD-CELLAVISION 0.6 10*3/uL Low 1.0-4.3 [facility] Comment on above: Performed By: #### L [id number], [id number] ####Registration Coordinator: JESSY OWENS ([id number])[facility] [place] [address] [place] LYMPHOCYTES TOTAL PER COUNTED LEUKOCYTES BY MANUAL COUNT 8 [facility] Comment on above: Performed By: #### L [id number], [id number] ####Registration Coordinator: JESSY OWENS ([id number])[facility] ([facility])[address] [place] [address] [place] LYMPHOCYTES/100 LEUKOCYTES IN BLOOD-CELLAVISION 8 % Low 15-45 [facility] Comment on above: Performed By: #### [place] [id number], [id number] ####Registration Coordinator: JESSY OWENS ([id number])[facility] ([facility])[address] [place] [address] [place] MACROCYTES (PRESENCE) IN BLOOD BY LIGHT MICROSCOPY Slight Abnormal (none) [facility] Comment on above: Performed By: #### [place] [id number], [id number] ####Registration Coordinator: JESSY OWENS ([id number])[facility] ([facility])[address] [place] [address] [place] METAMYELOCYTES (10*3/UL) IN BLOOD-CELLAVISION 0.2 10*3/uL High <=0.0 [facility] Comment on above: Performed By: #### Davidson [id number], [id number] ####Registration Coordinator: JESSY OWENS ([id number])[facility] [place] [address] [place] METAMYELOCYTES TOTAL PER COUNTED LEUKOCYTES BY MANUAL COUNT 2 Normal [facility] Comment on above: Performed By: #### [place] [id number], [id number] ####Registration Coordinator: JESSY OWENS ([id number])[facility] ([facility])[address] [place] [address] [place] METAMYELOCYTES/100 LEUKOCYTES IN BLOOD-CELLAVISION 2 % High <=0 [facility] Comment on above: Performed By: #### [place] [id number], [id number] ####Registration Coordinator: JESSY OWENS ([id number])[facility] ([facility])[address] [place] [address] [place] MONOCYTES (10*3/UL) IN BLOOD-CELLAVISION 0.5 10*3/uL Normal 0.0-0.9 [facility] Comment on above: Performed By: #### [place] [id number], [id number] ####Registration Coordinator: JESSY [id number])[facility] ([facility])[address] [place] [address] [place] MONOCYTES TOTAL PER COUNTED LEUKOCYTES BY MANUAL COUNT 6 Normal [facility] Comment on above: Performed By: #### L [id number], [id number] ####Registration Coordinator: JESSY OWENS ([id number])[facility] [place] [address] [place] MONOCYTES/100 LEUKOCYTES IN BLOOD-GIRMA 6 % Normal 5-13 [facility] Comment on above: Performed By: #### L [id number], [id number] ####Registration Coordinator: JESSY OWENS ([id number])[facility] ([facility])[address] [place] [address] [place] MYELOCYTES (10*3/UL) IN BLOOD-CELLAVISION 0.1 10*3/uL High <=0.0 [facility] Comment on above: Performed By: #### Davidson [id number], [id number] ####Registration Coordinator: JESSY OWENS ([id number])[facility] [place] [address] [place] MYELOCYTES COUNTED BY MANUAL COUNT 1 Normal [facility] Comment on above: Performed By: #### L [id number], [id number] ####Registration Coordinator: JESSY OWENS ([id number])[facility] [place] [address] [place] MYELOCYTES/100 LEUKOCYTES IN BLOOD-CELLAVISION 1 % High <=0 [facility] Comment on above: Performed By: #### L [id number], [id number] ####Registration Coordinator: JESSY OWENS ([id number])[facility] [place] [address] [place] NEUTROPHILS BAND FORM/100 LEUKOCYTES IN BLOOD-CELLAVISI 4 % High <=0 [facility] Comment on above: Performed By: #### L [id number], [id number] ####Registration Coordinator: JESSY OWENS ([id number])[facility] ([facility])[address] [place] [address] [place] NEUTROPHILS TOTAL PER COUNTED LEUKOCYTES BY MANUAL COUNT 83 Normal [facility] Comment on above: Performed By: #### L [id number], [id number] ####Registration Coordinator: JESSY OWENS ([id number])[facility] [place] [address] [place] NUCLEATED ERYTHROCYTES/100 LEUKOCTES IN BLOOD-CELLAVISION 4 % High 0-2 [facility] Comment on above: Performed By: #### L [id number], [id number] ####Registration Coordinator: JESSY OWENS ([id number])[facility] [place] [address] [place] PROMYELOCYTES TOTAL PER COUNTED LEUKOCYTES BY MANUAL COUNT [facility] Comment on above: Performed By: #### L [id number], [id number] ####Registration Coordinator: JESSY OWENS ([id number])[facility] [place] [address] [place] RBC MORPHOLOGY IN BLOOD abnormal Normal [facility] Comment on above: Performed By: #### L [id number], [id number] ####Registration Coordinator: JESSY OWENS ([id number])[facility] [place] [address] [place] SEGMENTED NEUTROPHILS (10*3/UL) IN BLOOD-CELLAVISION 6.4 10*3/uL Normal 1.8-7.5 [facility] Comment on above: Performed By: #### L [id number], [id number] ####Registration Coordinator: JESSY OWENS ([id number])[facility] [place] [address] [place] SEGMENTED NEUTROPHILS/100 LEUKOCYTES-CE 80 % Normal 38-82 [facility] Comment on above: Performed By: #### L [id number], [id number] ####Registration Coordinator: JESSY OWENS ([id number])[facility] ([facility])[address] [place] [address] [place] UNCLASSIFIED CELLS TOTAL PER COUNTED LEUKOCYTES BY MANUAL COUNT [facility] Comment on above: Performed By: #### L [id number], [id number] ####Registration Coordinator: JESSY OWENS ([id number])[facility] ([facility])[address] [place] [address] VARIANT LYMPHOCYTES TOTAL PER COUNTED LEUKOCYTES BY MANUAL COUNT Normal [facility] Comment on above: Performed By: #### L [id number], [id number] ####Registration Coordinator: JESSY OWENS ([id number])[facility] ([facility])[address] [place] [address] Magnesium [Mass/Vol]on 11-30 [facility] No Panel Informationon 11-30 Bands Manual 4 [facility] Interpretation and review of laboratory results Abnormal [facility] Lymphocytes Manual 8 [facility] Metamyelocytes Manual 2 [facility] Monocytes Manual 6 [facility] alth Myelocytes Manual 1 [facility] ealth Neutrophils Manual 83 [facility] Interpretation and review of laboratory results Normal [facility] PHOSPHORUSon 11-30-2024 Phosphate [Mass/Vol] 2.6 mg/dL Normal 2.3-4.7 [facility] Comment on above: Performed By: #### L AB113, LAB15, [id number] ####Registration Coordinator: JESSY OWENS ([id number])[facility])[address] [place] [address] Phosphate [Moles/Vol]on 11-17 Phosphate [Mass/Vol] 2.6 mg/dL 2.3 - 4 .7 mg/dL [facility] Progress Noteon 11-30-2024 Progress Note Normal [facility] Progress Note Normal [facility] Progress Note Normal [facility] Progress Note Normal [facility] Progress Note Normal [facility] Progress Note Normal [facility] 30on 11-29-2024 30 Normal [facility] 30 Normal [facility] [id number] 11-29-2024 [id number] Normal [facility] [id number] Normal [facility] BASIC METABOLIC PANELon 11-17 Anion gap [Moles/Vol] 6 mmol/L Normal 09-29 [facility] Comment on above: Performed By: #### L AB103, [id number], LAB15 ####Registration Coordinator: JESSY OWENS ([id number])[facility])[address] [place] [address] Calcium [Mass/Vol] 8.6 mg/dL Low 8.8-10.0 [facility] Comment on above: Performed By: #### L AB103, [id number], LAB15 ####Registration Coordinator: JESSY OWENS ([id number])[facility] [place] [address] Chloride [Moles/Vol] 110 mmol/L High 98-107 [facility] Comment on above: Performed By: #### Davidson AB103, [id number], LAB15 ####Registration Coordinator: JESSY OWENS ([id number])[facility] ([facility])[address] [place] [address] CO2 [Moles/Vol] 22 mmol/L Low 23-31 [facility] Comment on above: Performed By: #### L AB103, [id number], LAB15 ####Registration Coordinator: JESSY OWENS ([id number])[facility] ([facility])[address] [place] [address] Creatinine [Mass/Vol] 0.53 mg/dL Low 0.57-1.11 [facility] Comment on above: Performed By: #### L AB103, [id number], LAB15 ####Registration Coordinator: JESSY OWENS ([id number])[facility])[address] [place] [address] GLOMERULAR FILTRATION RATE ML/MIN/1.73 SQ M.PREDICTED >90.0 Normal >60.0 [facility] Comment on above: Result Comment: Calc ulation based on the Chronic Kidney Disease Epidemiology Collaboration (CKD-EPI) equation refit without adjustment for race Performed By: #### L AB103, [id number], LAB15 ####Registration Coordinator: JESSY OWENS ([id number])[facility] ([facility])[address] [place] [address] Glucose [Mass/Vol] 110 mg/dL Normal 82-115 [facility] Comment on above: Performed By: #### L AB103, [id number], LAB15 ####Registration Coordinator: JESSY OWENS ([id number])[facility] ([facility])[address] [place] [address] Potassium [Moles/Vol] 3.7 mmol/L Normal 3.5-5.1 [facility] Comment on above: Result Comment: [facility] potassium values may be up to 0.5 mmol/L lower than serum values. Performed By: #### L AB103, [id number], LAB15 ####Registration Coordinator: JESSY OWENS ([id number])[facility] ([facility])[address] [place] [address] Sodium [Moles/Vol] 138 mmol/L Normal 136-145 [facility] Comment on above: Performed By: #### L AB103, [id number], LAB15 ####Registration Coordinator: JESSY OWENS ([id number])[facility] ([facility])[address] [place] [address] Urea nitrogen [Mass/Vol] 11 mg/dL Normal 9-23 [facility] Comment on above: Performed By: #### L AB103, [id number], LAB15 ####Registration Coordinator: JESSY OWENS ([id number])[facility] [place] [address] Anion gap [Moles/Vol] 6 mmol/L Normal 3-13 [facility] Comment on above: Performed By: #### L AB113, LAB15, [id number] ####Registration Coordinator: JESSY OWENS ([id number])[facility] ([facility])[address] [place] [address] [place] Calcium [Mass/Vol] 8.4 mg/dL Low 8.8-10.0 [facility] Comment on above: Performed By: #### L AB113, LAB15, [id number] ####Registration Coordinator: JESSY OWENS ([id number])[facility] ([facility])[address] [place] [address] [place] Chloride [Moles/Vol] 109 mmol/L High 98-107 [facility] Comment on above: Performed By: #### L AB113, LAB15, [id number] ####Registration Coordinator: JESSY OWENS ([id number])[facility])[address] [place] [address] CO2 [Moles/Vol] 22 mmol/L Low 23-31 [facility] Comment on above: Performed By: #### L AB113, LAB15, [id number] ####Registration Coordinator: JESSY OWENS ([id number])[facility])[address] [place] [address] Creatinine [Mass/Vol] 0.53 mg/dL Low 0.57-1.11 [facility] Comment on above: Performed By: #### L AB113, LAB15, [id number] ####Registration Coordinator: JESSY OWENS ([id number])[facility])[address] [place] [address] GLOMERULAR FILTRATION RATE ML/MIN/1.73 SQ M.PREDICTED >90.0 Normal >60.0 [facility] Comment on above: Result Comment: Calc ulation based on the Chronic Kidney Disease Epidemiology Collaboration (CKD-EPI) equation refit without adjustment for race Performed By: #### L AB113, LAB15, [id number] ####Registration Coordinator: JESSY OWENS ([id number])[facility] ([facility])[address] [place] [address] Glucose [Mass/Vol] 108 mg/dL Normal 82-115 [facility] Comment on above: Performed By: #### L AB113, LAB15, [id number] ####Registration Coordinator: JESSY OWENS ([id number])[facility])[address] [place] [address] Potassium [Moles/Vol] 3.6 mmol/L Normal 3.5-5.1 [facility] Comment on above: Result Comment: [facility] potassium values may be up to 0.5 mmol/L lower than serum values. Performed By: #### L AB113, LAB15, [id number] ####Registration Coordinator: JESSY OWENS ([id number])[facility] ([facility])[address] [place] [address] Sodium [Moles/Vol] 137 mmol/L Normal 136-145 [facility] Comment on above: Performed By: #### L AB113, LAB15, [id number] ####Registration Coordinator: JESSY OWENS ([id number])[facility] ([facility])[address] [place] [address] Urea nitrogen [Mass/Vol] 12 mg/dL Normal 9-23 [facility] Comment on above: Performed By: #### L AB113, LAB15, [id number] ####Registration Coordinator: JESSY OWENS ([id number])[facility])[address] [place] [address] Bacteria identified Cx Nom ( Bld)on 11-29-2024 Interpretation and review of laboratory results Normal [facility] Basic metabolic 1998 panelon 11-29-2024 Anion gap [Moles/Vol] 6 mmol/L 3 - 13 mmol/L [facility] Calcium [Mass/Vol] 8.6 mg/dL Low 8.8 - 10. 0 mg/dL [facility] Chloride [Moles/Vol] 110 mmol/L High 98 - 10 7 mmol/L [facility] CO2 [Moles/Vol] 22 mmol/L Low 23 - 31 mmol/L [facility] Creatinine [Mass/Vol] 0.53 mg/dL Low 0.57 - 1.11 mg/dL [facility] GFR/1.73 sq M.predicted (S/P/Bld) [Vol rate/Area] - PINF [facility] Glucose [Mass/Vol] 110 mg/dL 82 - 115 mg/dL [facility] Interpretation and review of laboratory results Abnormal [facility] Potassium [Moles/Vol] 3.7 mmol/L 3.5 - 5.1 mmol/L [facility] Sodium [Moles/Vol] 138 mmol/L 136 - 145 mmol/L [facility] Urea nitrogen [Mass/Vol] 11 mg/dL 9 - 23 mg/d L [facility] Anion gap [Moles/Vol] 6 mmol/L 3 - 13 mmol/L [facility] Calcium [Mass/Vol] 8.4 mg/dL Low 8.8 - 10. 0 mg/dL [facility] Chloride [Moles/Vol] 109 mmol/L High 98 - 10 7 mmol/L [facility] CO2 [Moles/Vol] 22 mmol/L Low 23 - 31 mmol/L [facility] Creatinine [Mass/Vol] 0.53 mg/dL Low 0.57 - 1.11 mg/dL [facility] GFR/1.73 sq M.predicted (S/P/Bld) [Vol rate/Area] - PINF [facility] Glucose [Mass/Vol] 108 mg/dL 82 - 115 mg/dL [facility] Potassium [Moles/Vol] 3.6 mmol/L 3.5 - 5.1 mmol/L [facility] Sodium [Moles/Vol] 137 mmol/L 136 - 145 mmol/L [facility] Urea nitrogen [Mass/Vol] 12 mg/dL 9 - 23 mg/d L [facility] CALCIUM, IONIZEDon CALCIUM IONIZED 4.60 mg/dL Normal 4.30-5.20 [facility] Comment on above: Performed By: #### L AB54 ####Registration Coordinator: JESSY OWENS ([id number])[address] PH, IONIZED CALCIUM 7.43 Normal 7.31-7.46 [facility] Comment on above: Performed By: #### L AB54 ####Registration Coordinator: JESSY OWENS ([id number])[address] CBC W Auto Differential pane l (Bld)on 11-29-2024 Erythrocyte distribution width (RBC) [Ratio] 16.5 % High 11.5 - 15.0 % [facility] Hematocrit (Bld) [Volume fraction] 22.8 % Low 35.0 - 47.0 % [facility] Hemoglobin (Bld) [Mass/Vol] 7.4 g/dL Low 11.7 - 16.0 g/dL [facility] Interpretation and review of laboratory results Abnormal [facility] IPF 3 [facility] MCH (RBC) [Entitic mass] 33.2 pg 26. 0 - 34.0 pg [facility] MCHC (RBC) [Mass/Vol] 32.5 % 30.5 - 36.0 % [facility] MCV (RBC) [Entitic vol] 102.2 fL High 77.0 - 99.0 fL [facility] Platelet mean volume (Bld) [Entitic vol] 10.3 fL 9.0 - 12.7 fL [facility] Platelets (Bld) [#/Vol] 61 10*3/uL Low 140 - 440 10*3/uL [facility] RBC (Bld) [#/Vol] 2.23 10*6/uL Low 3.80 - 5.2 0 10*6/uL [facility] WBC (Bld) [#/Vol] 7.1 10*3/uL 3.6 - 10.7 10*3/uL [facility] CBC WITH AUTO DIFFERENTIALon 11-29-2024 Erythrocyte distribution width (RBC) [Ratio] 16.5 % High 11.5-15.0 [facility] Comment on above: Performed By: #### Davidson [id number], [id number] ####Registration Coordinator: JESSY OWENS ([id number])[address] Hematocrit (Bld) [Volume fraction] 22.8 % Low 35.0-47.0 [facility] Comment on above: Performed By: #### Davidson [id number], [id number] ####Registration Coordinator: JESSY [id number])[address] Hemoglobin (Bld) [Mass/Vol] 7.4 g/dL Low 11.7-16.0 [facility] Comment on above: Performed By: #### L [id number], [id number] ####Registration Coordinator: JESSY OWENS ([id number])[address] IPF 3 Normal [facility] Comment on above: Performed By: #### L OS4446, [id number] ####Registration Coordinator: JESSY [id number])[facility])[address] [place] [address] MCH (RBC) [Entitic mass] 33.2 pg Normal 26.0-34.0 [facility] Comment on above: Performed By: #### Davidson [id number], [id number] ####Registration Coordinator: JESSY OWENS ([id number])[facility])[address] [place] [address] MCHC 32.5 % Normal 30.5-36.0 [facility] Comment on above: Performed By: #### L TA2717, [id number] ####Registration Coordinator: JESSY OWENS ([id number])[facility])[address] [place] [address] MCV (RBC) [Entitic vol] 102.2 fL High 77.0-99.0 [facility] Comment on above: Performed By: #### Davidson MCCLELLAN, [id number] ####Registration Coordinator: JESSY OWENS ([id number])[facility] ([facility])[address] [place] [address] Platelet mean volume (Bld) [Entitic vol] 10.3 fL Normal 9.0-12.7 [facility] Comment on above: Performed By: #### Davidson [id number], [id number] ####Registration Coordinator: JESSY OWENS ([id number])[facility])[address] [place] [address] Platelets (Bld) [#/Vol] 61 10*3/uL Low 140-440 [facility] Comment on above: Performed By: #### L LA4431, [id number] ####Registration Coordinator: JESSY OWENS ([id number])[facility])[address] [place] [address] RBC (Bld) [#/Vol] 2.23 10*6/uL Low 3.80-5.20 [facility] Comment on above: Performed By: #### L OU6233, [id number] ####Registration Coordinator: JESSY OWENS ([id number])[facility])[address] [place] [address] WBC (Bld) [#/Vol] 7.1 10*3/uL Normal 3.6-10.7 [facility] Comment on above: Performed By: #### L [id number], [id number] ####Registration Coordinator: JESSY OWENS ([id number])[facility] [place] [address] Calcium.ionized [Moles/Vol]o n 11-29-2024 Calcium.ionized (Bld) [Moles/Vol] 4.6 mg/dL 4.30 - 5.20 mg/dL [facility] Interpretation and review of laboratory results Normal [facility] PH, IONIZED CALCIUM 7.43 7.31 - 7.46 [facility] Consulton 11-29-2024 Consult Normal [facility] Laboratory - Chemistry and C hemistry - challengeon 11-29-2024 Magnesium [Mass/Vol] 2.1 mg/dL 1.6 - 2 .6 mg/dL [facility] Magnesium [Mass/Vol] 1.7 mg/dL 1.6 - 2 .6 mg/dL [facility] Laboratory - Hematology and Cell countson 11-29-2024 Anisocytosis Ql (Bld) Slight Abnormal (none) [facility] Band form neutrophils (Bld) [#/Vol] 0.5 10*3/uL High NINF - 0.0 10*3/uL [facility] Band form neutrophils/100 WBC (Bld) 7 % High NINF - 0 % [facility] Lymphocytes (Bld) [#/Vol] 1 10*3/uL 1.0 - 4.3 10*3/uL [facility] Lymphocytes/100 WBC (Bld) 14 % Low 15 - 45 % [facility] Macrocytes Ql (Bld) Slight Abnormal (none) [facility] Metamyelocytes (Bld) [#/Vol] 0.1 10*3/uL High NINF - 0.0 10*3/uL [facility] Metamyelocytes/100 WBC (Bld) 1 % High NINF - 0 % [facility] Monocytes (Bld) [#/Vol] 0.6 10*3/uL 0.0 - 0.9 10*3/uL [facility] Monocytes/100 WBC (Bld) 9 % 5 - 13 % [facility] Myelocytes (Bld) [#/Vol] 0.1 10*3/uL High BRITTANI F - 0.0 10*3/uL [facility] Myelocytes/100 WBC (Bld) 1 % High NINF - 0 % [facility] Neutrophils (Bld) [#/Vol] 5.3 10*3/uL 1.8 - 7.5 10*3/uL [facility] Nucleated RBC/100 WBC (Bld) [Ratio] 2 % 0 - 2 % [facility] Poikilocytosis LM Ql (Bld) Slight Abnormal (none) [facility] Promyelocytes (Bld) [#/Vol] 0.1 10*3/uL High NINF - 0.0 10*3/uL [facility] Promyelocytes/100 WBC (Bld) 1 % High NINF - 0 % [facility] RBC morphology finding Nom (Bld) abnormal [facility] Segmented neutrophils/100 WBC (Bld) 67 % 38 - 82 % [facility] Stomatocytes LM Ql (Bld) Slight Abnormal (none) [facility] Laboratory - Microbiology an d Antimicrobial susceptibilityon 11-29-2024 Bacteria identified Cx Nom (Bld) No growth at 5 days [facility] MAGNESIUMon 11-29-2024 Magnesium [Mass/Vol] 2.1 mg/dL Normal 1.6-2.6 [facility] Comment on above: Result Comment: TANA R COMMENTS:Higher values can be expected in females during menses. Performed By: #### L AB103, [id number], LAB15 ####Registration Coordinator: JESSY OWENS ([id number])[address] Magnesium [Mass/Vol] 1.7 mg/dL Normal 1.6-2.6 [facility] Comment on above: Result Comment: TANA R COMMENTS:Higher values can be expected in females during menses. Performed By: #### L AB113, LAB15, [id number] ####Registration Coordinator: JESSY OWENS ([id number])[facility] ([facility])[address] [place] [address] MANUAL DIFFERENTIAL (CELLAVI ZOIE)on 11-29-2024 ANISOCYTOSIS PRESENCE IN BLOOD BY LIGHT MICROSCOPY Slight Abnormal (none) [facility] Comment on above: Performed By: #### L [id number], [id number] ####Registration Coordinator: JESSY OWENS ([id number])[facility])[address] [place] [address] BAND NEUTROPHILS TOTAL PER COUNTED LEUKOCYTES BY MANUAL COUNT 7 Normal [facility] Comment on above: Performed By: #### L [id number], [id number] ####Registration Coordinator: JESSY OWENS ([id number])[facility] ([facility])[address] [place] [address] [place] BANDS (10*3/UL) IN BLOOD-CELLAVISION 0.5 10*3/uL High <=0.0 [facility] Comment on above: Performed By: #### Davidson YL6266, [id number] ####Registration Coordinator: JESSY OWENS ([id number])[facility])[address] [place] [address] BASOPHILS TOTAL PER COUNTED LEUKOCYTES BY MANUAL COUNT Normal [facility] Comment on above: Performed By: #### L [id number], [id number] ####Registration Coordinator: JESSY OWENS ([id number])[facility])[address] [place] [address] [place] BLASTS TOTAL PER COUNTED LEUKOCYTES BY MANUAL COUNT Normal [facility] Comment on above: Performed By: #### L CH4310, [id number] ####Registration Coordinator: JESSY OWENS ([id number])[facility])[address] [place] [address] [place] EOSINOPHILS TOTAL PER COUNTED LEUKOCYTES BY MANUAL COUNT Normal [facility] Comment on above: Performed By: #### L [id number], [id number] ####Registration Coordinator: JESSY OWENS ([id number])[facility])[address] [place] [address] [place] LYMPHOCYTES (10*3/UL) IN BLOOD-CELLAVISION 1.0 10*3/uL Normal 1.0-4.3 [facility] Comment on above: Performed By: #### L [id number], [id number] ####Registration Coordinator: JESSY OWENS ([id number])[facility] ([facility])[address] [place] [address] [place] LYMPHOCYTES TOTAL PER COUNTED LEUKOCYTES BY MANUAL COUNT 15 Normal [facility] Comment on above: Performed By: #### L [id number], [id number] ####Registration Coordinator: JESSY OWENS ([id number])[facility] [place] [address] [place] LYMPHOCYTES/100 LEUKOCYTES IN BLOOD-CELLAVISION 14 % Low 15-45 [facility] Comment on above: Performed By: #### L [id number], [id number] ####Registration Coordinator: JESSY OWENS ([id number])[facility] [place] [address] [place] MACROCYTES (PRESENCE) IN BLOOD BY LIGHT MICROSCOPY Slight Abnormal (none) [facility] Comment on above: Performed By: #### Davidson NY5094, [id number] ####Registration Coordinator: JESSY OWENS ([id number])[facility] ([facility])[address] [place] [address] [place] METAMYELOCYTES (10*3/UL) IN BLOOD-CELLAVISION 0.1 10*3/uL High <=0.0 [facility] Comment on above: Performed By: #### Davidson [id number], [id number] ####Registration Coordinator: JESSY OWENS ([id number])[facility] [place] [address] [place] METAMYELOCYTES TOTAL PER COUNTED LEUKOCYTES BY MANUAL COUNT 1 Normal [facility] Comment on above: Performed By: #### L [id number], [id number] ####Registration Coordinator: JESSY OWENS ([phone])[facility] ([facility])[address] [place] [address] [place] METAMYELOCYTES/100 LEUKOCYTES IN BLOOD-CELLAVISION 1 % High <=0 [facility] Comment on above: Performed By: #### L [id number], [id number] ####Registration Coordinator: JESSY OWENS ([id number])[facility] ([facility])[address] [place] [address] [place] MONOCYTES (10*3/UL) IN BLOOD-CELLAVISION 0.6 10*3/uL Normal 0.0-0.9 [facility] Comment on above: Performed By: #### Davidson [id number], [id number] ####Registration Coordinator: JESSY OWENS ([id number])[facility] ([facility])[address] [place] [address] [place] MONOCYTES TOTAL PER COUNTED LEUKOCYTES BY MANUAL COUNT 10 Normal [facility] Comment on above: Performed By: #### Davidson [id number], [id number] ####Registration Coordinator: JESSY OWENS ([id number])[facility] ([facility])[address] [place] [address] [place] MONOCYTES/100 LEUKOCYTES IN BLOOD-GIRMA 9 % Normal 5-13 [facility] Comment on above: Performed By: #### Davidson [id number], [id number] ####Registration Coordinator: JESSY OWENS ([id number])[facility] ([facility])[address] [place] [address] [place] MYELOCYTES (10*3/UL) IN BLOOD-CELLAVISION 0.1 10*3/uL High <=0.0 [facility] Comment on above: Performed By: #### Davidson [id number], [id number] ####Registration Coordinator: JESSY OWENS ([id number])[facility] ([facility])[address] [place] [address] [place] MYELOCYTES COUNTED BY MANUAL COUNT 1 Normal [facility] Comment on above: Performed By: #### L [id number], [id number] ####Registration Coordinator: JESSY OWENS ([id number])[facility])[address] [place] [address] [place] MYELOCYTES/100 LEUKOCYTES IN BLOOD-CELLAVISION 1 % High <=0 [facility] Comment on above: Performed By: #### L [id number], [id number] ####Registration Coordinator: JESSY OWENS ([id number])[facility] [place] [address] [place] NEUTROPHILS BAND FORM/100 LEUKOCYTES IN BLOOD-CELLAVISI 7 % High <=0 [facility] Comment on above: Performed By: #### L [id number], [id number] ####Registration Coordinator: JESSY OWENS ([id number])[facility] [place] [address] [place] NEUTROPHILS TOTAL PER COUNTED LEUKOCYTES BY MANUAL COUNT 71 Normal [facility] Comment on above: Performed By: #### L [id number], [id number] ####Registration Coordinator: JESSY OWENS ([id number])[facility] ([facility])[address] [place] [address] [place] NUCLEATED ERYTHROCYTES/100 LEUKOCTES IN BLOOD-CELLAVISION 2 % Normal 0-2 [facility] Comment on above: Performed By: #### Davidson [id number], [id number] ####Registration Coordinator: JESSY OWENS ([id number])[facility])[address] [place] [address] [place] POIKILOCYTOSIS (PRESENCE) IN BLOOD BY LIGHT MICROSCOPY Slight Abnormal (none) [facility] Comment on above: Performed By: #### L [id number], [id number] ####Registration Coordinator: JESSY OWENS ([id number])[facility] ([facility])[address] [place] [address] [place] PROMEYELOCYTES (10*3/UL) IN BLOOD-CELLAVISION 0.1 10*3/uL High <=0.0 [facility] Comment on above: Performed By: #### L [id number], [id number] ####Registration Coordinator: JESSY OWENS ([id number])[facility] ([facility])[address] [place] [address] [place] PROMYELOCYTES TOTAL PER COUNTED LEUKOCYTES BY MANUAL COUNT 1 Normal [facility] Comment on above: Performed By: #### L [id number], [id number] ####Registration Coordinator: JESSY OWENS ([id number])[facility] ([facility])[address] [place] [address] [place] PROMYELOCYTES/100 LEUKOCYTES IN BLOOD-CELLAVISION 1 % High <=0 [facility] Comment on above: Performed By: #### L [id number], [id number] ####Registration Coordinator: JESSY OWENS ([id number])[facility] [place] [address] [place] RBC MORPHOLOGY IN BLOOD abnormal Normal S [facility] Comment on above: Performed By: #### L [id number], [id number] ####Registration Coordinator: JESSY OWENS ([id number])[facility] ([facility])[address] [place] [address] [place] SEGMENTED NEUTROPHILS (10*3/UL) IN BLOOD-CELLAVISION 5.3 10*3/uL Normal 1.8-7.5 [facility] Comment on above: Performed By: #### Davidson [id number], [id number] ####Registration Coordinator: JESSY OWENS ([id number])[facility])[address] [place] [address] [place] SEGMENTED NEUTROPHILS/100 LEUKOCYTES-CE 67 % Normal 38-82 [facility] Comment on above: Performed By: #### L [id number], [id number] ####Registration Coordinator: JESSY OWENS ([id number])[facility] ([facility])[address] [place] [address] [place] STOMATOCYTES IN BLOOD BY LIGHT MICROSCOPY Slight Abnormal (none) [facility] Comment on above: Performed By: #### L [id number], [id number] ####Registration Coordinator: JESSY OWENS ([id number])[facility] ([facility])[address] [place] [address] [place] UNCLASSIFIED CELLS TOTAL PER COUNTED LEUKOCYTES BY MANUAL COUNT Normal [facility] Comment on above: Performed By: #### L [id number], [id number] ####Registration Coordinator: JESSY OWENS ([id number])[facility] ([facility])[address] [place] [address] [place] VARIANT LYMPHOCYTES TOTAL PER COUNTED LEUKOCYTES BY MANUAL COUNT Normal [facility] Comment on above: Performed By: #### L [id number], [id number] ####Registration Coordinator: JESSY OWENS ([id number])[place] [address] [place] Magnesium [Mass/Vol]on 11-29 Interpretation and review of laboratory results Normal [facility] Interpretation and review of laboratory results Normal [facility] No Panel InformationOrdered By: Jessy Owens on 11-29-2024 Case Report [facility] [employer] Work Phone: Comment j8kvlFGqJUUdyOHmXOPy VIgvgfUwUFEyzZIgD4Wh uzosPMbnZW2zNX1uaYix uQQkbMLeFLJwKnLye5dg n280xANgz2wyWRIEXQyn VECDZWz5hZmpB40ty2J1 RarvZ39uoYCzSWR1PAHj VZLbcNBlUBCzRSH7HMSk aQYzK8hjDRAoWH4rhdaw YBfbCKwsUOBhiRD0HXQz jUEyA5OfBVWwEJbuBRTj vir4ZqKzVc7yeATieWwl MFxwYXJkXHBsYWluXGZz NdAoQQFtJFJft6YdK6X7 BNPtFKhcn6abNSJwNDkd a7CwIBmMFLRURE5FNT3n sYI8SFuVZPMAO1hFuDN6 TZb1jMM4RI89STOhGFQq fVEgUTruP566YW8mpNjw c4nwvWAxTGllAhahzDAw bgC4MZlFBNBHSLfLReVc PB2jVGeNA8HPCzF5Abpp ZJb5MMpjaNyjZjbcsdXj rKEcIzScaW7auKrboK3c ZnMyMCAgcmVtYWlucyBw OOIsfMF2ZP75FOelzWqn dXQgaWRlbnRpZmlhYmxl JGXvvCJtNPDsr20onULo okG0sM9eIRDomqBlyLKg hSZbzYwuGsxkkJJ3OMxd VmerzF1pfWQDAVHFEwmC GeazviNxVJ7UXTFTXnPC ZK87RsjuRCU0QmamkWky ConuwzEvzBJyFwXwtI3u z36eUW6dolZwazMpfBTx h3aokQQjZUcpCzgvjKGn pmY6OPfPMYLCSZeDUnWk TE4cWDmAR7YZObT2Kquf PNF1PsmqoIglRuxfszCh bJJyCbUwtE4ccHlzyK2k MwWjLVLdiJLrhpTdy01s JM1tRTJecF9dIoNwpBrn lwBsinQxmCU8KMVtb8Qh LZKim9ExW1J1KASdXZlz r5raAEPjEQmee7ThCYpO LXIREC0KMZ7jzIW7MKtJ XFFMS6kPwTI4ZZs1zHC7 A864LVYmTXEgmKVbHRdk D747cHsnsU3htCVfkUOp hJnzRS6hg0VyBNTlw7bu aWVsZHtcKlxmbGRpbnN0 BMqSLVQVBRgKCpZiAT0g VYcCR2VOWeE4HbbdRRn5 B2fbxCilLwkiyhPxbYPi ZzJhhG0sdMuzsU8nUaRx MCAuXHBhclxwYXJkXHBh gia0QYNPESFXAIdUNK3V OKJEPHXNWD6YRMkMKtJt UbY3A4rbDEtpZmxjKQP0 Tv0jPpC6UBl8lJR4ApFS DNWIVQbPY6IgLPBFBZPK JEXpCO4MZUhNQONYPOVV K77ZCYEABDUXK2SFL6fK ZXkXBQMFQZECT39DFCQN YOYQB2MXEEOMSIPWKImS JSWNPi3VBLFGWZBLBR9M RUdJTiAxXHthaGRjZWxs XTocvhLdHwE9YOg5VT3t JIfbmPOeHD6pNXDdc8Uc UwZ3MKv3OP8fRBfaiITp RR0vLBm7JxwwGRwuoAQW RHGVWGoWOHGQDt8VNJHV KOTWER1XNfVvA6NCJT6N Iq2MNSVEDJVRJN6ERCbV YyLmY0XDBL1ASb4YOZKV NCPBFW3WOkUtQZTTL2QM ZvVSU3kyGAPLOENVPLFd TlMIZB0xICTDKV8CDZXI YNBVC15ODVMGBXIKM6RA RH0= [facility] Work Phone: Gross Description c7lcwAXkQWKnwAHuLzOi KOGcKMSox1niINVdcFAy ZzEwMzNcZnRuYmpcdWMx TFFzUlOed4aur884bPFw g6ebIRMeTzJ2bLYoWCMn A81xQWDIQ793UGDkJUkl b4xpt4UqSXRdvHYlz5F7 PQVFQCgtJBRQCJz8dHqa U19so5Q8FgxjA7lrQFXj WSWrS0NeCO8aTVGpMvg3 ZTD0ONX1INQeSLBkD2Yq XH1oMNMdlCVaHRa8q4jw eQusVVJqVQM3d1zmTMck naAxTW5gvm1ntKo6q9ut czEgRGVmYXVsdCBQYXJh W2VpuNbpQj8agTw3tTbe NhzxVXA5Pae0HO0mbz75 ide8dGqcJBUshqoqEoS4 WKnnFRXncevoQVj7IVgt OVPpwVS0CRAseZYkC0Sb XTOiIK2ihgv5IRW1VCau VGJwOxC6IJGelXXjSZFc yPmdLOutu599ZWU1UwCx JI8aD9Gye9I3qV5rqXJy OGIdnEMfQxCtNFCzzs6k tSEeIBdbb9GrUMK8vwZ8 kXUrcDEvZILmFG91Txsq s4CeRudxVMC1AJMjilAx r4Vfm8wcPaGkfzUzR9hq R2DsHNUkMBWfJXIjEvTs lvPve3Qvy6SahDTbcMh1 k2qzDABaNQUerTdui6wm OPC9SKEqZ3W3kFEog5cw WGuxXZOamMX4oxM1VIXo kHItA2AurE2rOYOtTX4y ftx4m2lfMQX5DGevLJQv XdS8ugQ6DPInsPPxVPVu rQizYNcjk015HUB0PvFe AQUca7OuH5PmlLjrQ73f kJadB16kMEQwmJhonZ0t bYzjuE2zEtCvDoIwOArg bFxwbGFpblxmMVxmczIy RGeeqdybGPKyRYpeF5tb OoNcKOUpvZkoQVhbj1Qv XGYxXGZzMjIgUGVyaXBo ZXJhbCBzbWVhciBzbGlk FEKnakEcMIGiVSNpu0Ow TXFzjFDjnUsljb7ybQYu fQ== [employer] 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: Pathologist Interpretation Location [facility], [address] [place] [id number], CLIA: [id number]; Joint Commission: [id number] [id number]; CAP: [id number] [facility] [employer] Phone: Pathology report final diagnosis Narrative n7azoXUcRDOpfNWaVKFp XSlnfjCrUMGafJRnE9Ay jjzmANvbRQ6sKB2qwJkr wVJyzDPnDXQyMlGnj9nc s763nOXjc5ihKDKIWDik BIXKVFf9m2dnCIZFKOIk RE3zP490BVZyMCNzjRFx GSFqZkU8M558KUQoPVmi qviwpF1kqhn3uZzbC57i g8V9EfwrO024HAnwtHyh zKHbKzswn3xxgHH5OWph n9QeHCF7Gdu1QEI8PYqw tNS7pCBrpVuooKXcDI0w c9axuNH0xiLmYOX6bBof yZS0uMahmedgd0fyeHY4 qQS7MXoslDH9DFuaCnRj B4wcPRTsxC3vU54cQ2tt ZXZlbGpjMFxsZXZlbHN0 ULD4WBHjd0yaQDEldGBi dGUnTiWqVJD4KqI4MDvh TCP4yIfbhKB3XVqelA5n HUHpP67pXfCvlPwrBbCq ZmktMzYwfXtcbGlzdGxl dmVsXGxldmVsbmZjMjNc zVF3TJmpYuXoIiKrvPM5 OAypKoWylIY7JMysrVZc uZC8ULupqWG1NIq6THc1 ZPhjTW12kCorsOK5JUae dZ5cOCVaI62jGtWbqJcn MTqrMFRjILY7AD60WJid o6NqGPCaxDlfTEOagY6c YzIzXGxldmVsbmZjbjIz XGxldmVsamMwXGxldmVs o4YenkHxcMA3NTpmfxTk oZI6zTrmRTYvzO4qZVJ3 LS16lPzvbNO0EBqoxE4b DZFzP38lCnZuqTnlAKGk PPBeBON0RQ44HEogh2Kv HOYeqQesWAXzmB2lGcOh XGxldmVsbmZjbjIzXGxl ddRmgyVbWFqlcyKpm2Hg crOzsLP2RToqqpDsbEL6 dFwnMDFcdTgyMjYgXCc5 NQi6v6woAXTmzA15uJYw wqS1gGkxASqizIH3LbNv ZmktMzYwfXtcbGlzdGxl dmVsXGxldmVsbmZjMjNc vPA3NQlyVhJnDnHcyKE6 OTsyIgRfpEZ1GNrbwNCe nYM9NTqlwRF4UJg8VYf2 UVrcAX05jHujyCC7ZClv aR4dHHAtV84fRzFrtMqa MfDxABIpPNX8NM05XQbt r9ZvUYWgvZhmSBOzgS0n YzIzXGxldmVsbmZjbjIz XGxldmVsamMwXGxldmVs g4IqzlXvrMB7OXmmcsEg yXT1yTjlRWGssL3zZSG7 IT03dFtasVX8XCgfiH0e MMApZ57oJjZthZseOMLr XKSyKDO3SP56ANlkw1Gw BFIbbFegXWUcoN9yTyPi XGxldmVsbmZjbjIzXGxl utKumaPwMBhpmkXfh6Sf joFumID7NYvxlmVmiHS1 dFwnMDFcdTgyMjYgXCc5 VUo7h4ocTPJkrW04hDQg guH3jYzcYLbvgXM6WMSu ZmktMzYwfXtcbGlzdGxl dmVsXGxldmVsbmZjMjNc fVP6CKvgCwVxIgTgzQL6 DEzwXwRpsZR2DReobHLk aDO0ZAjnmJS0CWu7QTk9 NWrxAV39bInlaOK9TPph eY3gLSLiD10zAiKhrTj4 GOIsWUTkDLH6QG45MJcl p2LaPJZugErqPNFerS9c YzIzXGxldmVsbmZjbjIz XGxldmVsamMwXGxldmVs h3FatsQzeUO2JOihrcUi uYA4xPdkFYZidF7gKJL9 JZ01lDezmLV1GNattX3e CSEnI82dHlLjpWs7XBOg PKWfZRO2AA20nTkdFquf gWG0l3IqjdFeMRW1PABy WTnpRnnuaQN9k1UeqkUr ZGVcbGlzdGlkNDYzOTc0 OTc8XZfjh8ZapcNyhjlo UEUsjL09SQgxchU8lAeg FOKadpvsDwX5HLqyWNLi hiedOFa8TVgcWGMfkMS9 MAGoaJDrR6VeRHIvPK6s syn8JHK3GNorDYRlHdN9 NDBcaGVhZGVyeTcyMFxm p371AAW3JoKiXPIhqvMn vLtltH1eYaTpSJNSQUCm gBdvpyAvSRLml37wIWWh ZWFyOlxwYXJcbGkzNjBc BmhyTjYaXAvciwF0YUbn ouNxgWd0gPJtaQabaP3n JkZhJZDGUEKms0C3zPsc DNKlb4Wic5Iido9yeQQf IW7rkEotUVsykKmauUve NAQip6nlwIzeG8r8a4Tb niqijHLlI1X5KRIeyRvt HDTvq0h5B4taf48hz0sw MEFuwdHxckKtJIPcP2dl a3FpT9y9XKXoOWBxggUO FgTwfML3WQJug19pI5g1 d2BjcrL3dPSxWWuzEO35 fB1yhNNyCrDvFWF1RCMp qWL9LSBdQOCuaBVcxaOn S97pxyPeOBDrEPF8mo6s xPgwfz8fhGKfBGVemg1a Ny5oyHWveVMaeJSiv6i6 rFHtf6naGBGYBamhLJOj KzRvLDLmgKMwcvZ6azs1 bH6zGItnVPSfkNXtOJ9n fY0rDDjkjASyiZYzb21y IDXeyOkjWGL8iM8uiZKp mrLcTTlzi0wneRedOODb nBnsO4TxFJLstLrxurEg DKWxAUPzAgTjT0XeGSUl nX9dCZWcv2UpIBNlDL3q tWomlSRuYAEadn9usTUg lR3deSColQZ7m5T8AFA2 LWDmjnndwWe8EQMvZFmh GpDcB2Frk33jHIruJfGn sEwcoy3jFXJnvWIvTRZ1 gU3uvL13fnBpQRblNOKx VCetr1DoAQ0kQrOlpFFs eU5erLdvyvhhvULdtHEh BZZopHZaFPM9knZcwKzm ippsvUowkE4maODyeKSt fNquWFQ7zuNmu70ytbjx UX5qTVBpibJbkXRcve92 YKI1odAycq2umVOhuZ== [facility] Work Phone: [facility] [employer] Work Phone: No Panel Informationon 11-29 Bands Manual 7 [facility] Interpretation and review of laboratory results Abnormal [facility] Lymphocytes Manual 15 [facility] Metamyelocytes Manual 1 [facility] Monocytes Manual 10 [facility] alth Myelocytes Manual 1 [facility] ealt Neutrophils Manual 71 [facility] Promyelocytes Manual 1 [facility] Interpretation and review of laboratory results Abnormal [facility] PHOSPHORUSon 11-29-2024 Phosphate [Mass/Vol] 2.6 mg/dL Normal 2.3-4.7 [facility] Comment on above: Performed By: #### L AB103, [id number], LAB15 ####Registration Coordinator: JESSY OWENS ([id number])[address] Phosphate [Mass/Vol] 2.1 mg/dL Low 2.3-4.7 [facility] Comment on above: Performed By: #### L AB113, LAB15, [id number] ####Registration Coordinator: JESSY OWENS ([id number])[facility] ([facility])[address] [place] [address] [place] Phosphate [Moles/Vol]on 11-17 Interpretation and review of laboratory results Normal [facility] Phosphate [Mass/Vol] 2.6 mg/dL 2.3 - 4 .7 mg/dL [facility] Phosphate [Mass/Vol] 2.1 mg/dL Low 2.3 - 4 .7 mg/dL [facility] Progress Noteon 11-29-2024 Progress Note Normal [facility] Progress Note Normal [facility] 30on 11-28-2024 30 Normal [facility] 30 Normal [facility] [id number] 11-28-2024 [id number] Normal [facility] BASIC METABOLIC PANELon 11-17 Anion gap [Moles/Vol] 5 mmol/L Normal -13 [facility] Comment on above: Performed By: #### L AB15 ####Registration Coordinator: JESSY OWENS ([id number])[facility] ([facility])[address] [place] [address] [place] Calcium [Mass/Vol] 8.6 mg/dL Low 8.8-10.0 [facility] Comment on above: Performed By: #### L AB15 ####Registration Coordinator: JESSY OWENS ([id number])[facility] ([facility])[address] [place] [address] [place] Chloride [Moles/Vol] 108 mmol/L High 98-107 [facility] Comment on above: Performed By: #### L AB15 ####Registration Coordinator: JESSY OWENS ([id number])[facility] [place] [address] [place] CO2 [Moles/Vol] 22 mmol/L Low 23-31 [facility] Comment on above: Performed By: #### L AB15 ####Registration Coordinator: JESSY OWENS ([id number])[facility] [place] [address] [place] Creatinine [Mass/Vol] 0.57 mg/dL Normal 0.57-1.11 [facility] Comment on above: Performed By: #### L AB15 ####Registration Coordinator: JESSY OWENS ([id number])[facility])[address] [place] [address] GLOMERULAR FILTRATION RATE ML/MIN/1.73 SQ M.PREDICTED >90.0 Normal >60.0 [facility] Comment on above: Result Comment: Calc ulation based on the Chronic Kidney Disease Epidemiology Collaboration (CKD-EPI) equation refit without adjustment for race Performed By: #### L AB15 ####Registration Coordinator: JESSY OWENS ([id number])[facility])[address] [place] [address] Glucose [Mass/Vol] 125 mg/dL High 82-115 [facility] Comment on above: Performed By: #### L AB15 ####Registration Coordinator: JESSY OWENS ([id number])[address] Potassium [Moles/Vol] 3.7 mmol/L Normal 3.5-5.1 [facility] Comment on above: Result Comment: [facility] potassium values may be up to 0.5 mmol/L lower than serum values. Performed By: #### L AB15 ####Registration Coordinator: JESSY OWESN ([id number])[facility])[address] [place] [address] Sodium [Moles/Vol] 135 mmol/L Low 136-145 [facility] Comment on above: Performed By: #### L AB15 ####Registration Coordinator: JESSY OWENS ([id number])[facility])[address] [place] [address] [place] Urea nitrogen [Mass/Vol] 14 mg/dL Normal 9-23 [facility] Comment on above: Performed By: #### L AB15 ####Registration Coordinator: JESSY OWENS ([id number])[facility])[address] [place] [address] Anion gap [Moles/Vol] 8 mmol/L Normal 3-13 [facility] Comment on above: Performed By: #### L AB15, [id number], [id number] ####Registration Coordinator: JESSY OWENS ([id number])[facility])[address] [place] [address] Calcium [Mass/Vol] 8.5 mg/dL Low 8.8-10.0 [facility] Comment on above: Performed By: #### L AB15, [id number], [id number] ####Registration Coordinator: JESSY OWENS ([id number])[facility] ([facility])[address] [place] [address] Chloride [Moles/Vol] 108 mmol/L High 98-107 [facility] Comment on above: Performed By: #### L AB15, [id number], [id number] ####Registration Coordinator: JESSY OWENS ([id number])[facility] ([facility])[address] [place] [address] CO2 [Moles/Vol] 23 mmol/L Normal 23-31 [facility] Comment on above: Performed By: #### L AB15, [id number], [id number] ####Registration Coordinator: JESSY OWENS ([id number])[facility])[address] [place] [address] Creatinine [Mass/Vol] 0.56 mg/dL Low 0.57-1.11 [facility] Comment on above: Performed By: #### L AB15, [id number], DJN751 ####Registration Coordinator: JESSY OWENS ([phone])[facility])[address] [place] [address] GLOMERULAR FILTRATION RATE ML/MIN/1.73 SQ M.PREDICTED >90.0 Normal >60.0 [facility] Comment on above: Result Comment: Calc ulation based on the Chronic Kidney Disease Epidemiology Collaboration (CKD-EPI) equation refit without adjustment for race Performed By: #### L AB15, RLZ060, FUJ458 ####Registration Coordinator: JESSY OWENS ([id number])[facility])[address] [place] [address] Glucose [Mass/Vol] 137 mg/dL High 82-115 [facility] Comment on above: Performed By: #### L AB15, IZO362, PYI023 ####Registration Coordinator: JESSY OWENS ([phone])[facility])[address] [place] [address] Potassium [Moles/Vol] 3.5 mmol/L Normal 3.5-5.1 [facility] Comment on above: Result Comment: [facility] potassium values may be up to 0.5 mmol/L lower than serum values. Performed By: #### L AB15, [id number], EYY644 ####Registration Coordinator: JESSY OWENS ([id number])[facility] ([facility])[address] [place] [address] Sodium [Moles/Vol] 139 mmol/L Normal 136-145 [facility] Comment on above: Performed By: #### L AB15, NME565, PAZ810 ####Registration Coordinator: JESSY OWENS ([id number])[facility] ([facility])[address] [place] [address] Urea nitrogen [Mass/Vol] 15 mg/dL Normal 9-23 [facility] Comment on above: Performed By: #### L AB15, XZS939, HXJ677 ####Registration Coordinator: JESSY OWENS ([phone])[facility])[address] [place] [address] Anion gap [Moles/Vol] 6 mmol/L Normal 3-13 [facility] Comment on above: Performed By: #### L AB89, LAB52, CKV511, XFV634, WSJ975, LAB15, LAB50, LAB96 ####Registration Coordinator: JESSY OWENS ([id number])[facility] ([facility])[address] [place] [address] [place] Calcium [Mass/Vol] 8.5 mg/dL Low 8.8-10.0 [facility] Comment on above: Performed By: #### L AB89, LAB52, GWT269, IAC983, TGU385, LAB15, LAB50, LAB96 ####Registration Coordinator: JESSY OWENS ([phone])[facility] [place] [address] Chloride [Moles/Vol] 110 mmol/L High 98-107 [facility] Comment on above: Performed By: #### L AB89, LAB52, JBZ089, ECM134, RTU395, LAB15, LAB50, LAB96 ####Registration Coordinator: JESSY OWENS ([id number])[facility] ([facility])[address] [place] [address] CO2 [Moles/Vol] 23 mmol/L Normal 23-31 [facility] Comment on above: Performed By: #### L AB89, LAB52, KYC111, XDV719, ACK972, LAB15, LAB50, LAB96 ####Registration Coordinator: JESSY OWENS ([id number])[facility])[address] [place] [address] Creatinine [Mass/Vol] 0.58 mg/dL Normal 0.57-1.11 [facility] Comment on above: Performed By: #### L AB89, LAB52, DUG480, TYF449, TLM657, LAB15, LAB50, LAB96 ####Registration Coordinator: JESSY OWENS ([id number])[facility] ([facility])[address] [place] [address] GLOMERULAR FILTRATION RATE ML/MIN/1.73 SQ M.PREDICTED >90.0 Normal >60.0 [facility] Comment on above: Result Comment: Calc ulation based on the Chronic Kidney Disease Epidemiology Collaboration (CKD-EPI) equation refit without adjustment for race Performed By: #### L AB89, LAB52, DLJ435, UQL412, OYW163, LAB15, LAB50, LAB96 ####Registration Coordinator: JESSY OWENS ([id number])[facility])[address] [place] [address] Glucose [Mass/Vol] 137 mg/dL High 82-115 [facility] Comment on above: Performed By: #### L AB89, LAB52, MQY928, QUF970, LCC618, LAB15, LAB50, LAB96 ####Registration Coordinator: JESSY OWENS ([id number])[facility])[address] [place] [address] Potassium [Moles/Vol] 3.9 mmol/L Normal 3.5-5.1 [facility] Comment on above: Result Comment: [facility] potassium values may be up to 0.5 mmol/L lower than serum values. Performed By: #### L AB89, LAB52, ERL435, OFL833, HRW301, LAB15, LAB50, LAB96 ####Registration Coordinator: JESSY OWENS ([id number])[facility])[address] [place] [address] Sodium [Moles/Vol] 139 mmol/L Normal 136-145 [facility] Comment on above: Performed By: #### L AB89, LAB52, CDH469, SMK011, NJX452, LAB15, LAB50, LAB96 ####Registration Coordinator: JESSY OWENS ([id number])[facility])[address] [place] [address] Urea nitrogen [Mass/Vol] 16 mg/dL Normal 9-23 [facility] Comment on above: Performed By: #### L AB89, LAB52, ZCV801, CHQ154, DTE415, LAB15, LAB50, LAB96 ####Registration Coordinator: JESSY OWENS ([id number])[facility])[address] [place] [address] BILIRUBIN, DIRECTon 11-29-19 25 Bilirubin.indirect [Mass/Vol] 0.6 mg/dL High <0.5 [facility] Comment on above: Performed By: #### L AB89, LAB52, MZT155, HGD053, KDV803, LAB15, LAB50, LAB96 ####Registration Coordinator: JESSY OWENS ([phone])[address] BILIRUBIN, TOTALon 5 Bilirubin [Mass/Vol] 1.0 mg/dL Normal <1.2 [facility] Comment on above: Performed By: #### L AB89, LAB52, TFG837, RBJ614, NOZ968, LAB15, LAB50, LAB96 ####Registration Coordinator: JESSY OWENS ([id number])[facility] ([facility])[address] [place] [address] BLOOD CULTUREon 11-28-2024 Bacteria identified Cx Nom (Bld) Normal [facility] Comment on above: Performed By: #### L [id number] ####Registration Coordinator: JESSY OWENS ([id number])[facility] ([facility])[address] [place] [address] Bacteria identified Aer cx N om (Unsp spec)Ordered By: Joon Alvarez on 11-28-2024 Gram Stain Result Moderate Polymorphonuclear leukocytes per low power field Abnormal [facility] Gram Stain Result Positive Abnormal [facility] ealt Gram Stain Result Negative Abnormal [facility] ealth Interpretation and review of laboratory results Abnormal [facility] Basic metabolic 1998 panelon 11-28-2024 Anion gap [Moles/Vol] 5 mmol/L 3 - 13 mmol/L [facility] Calcium [Mass/Vol] 8.6 mg/dL Low 8.8 - 10. 0 mg/dL [facility] Chloride [Moles/Vol] 108 mmol/L High 98 - 10 7 mmol/L [facility] CO2 [Moles/Vol] 22 mmol/L Low 23 - 31 mmol/L [facility] Creatinine [Mass/Vol] 0.57 mg/dL 0.57 - 1.11 mg/dL [facility] GFR/1.73 sq M.predicted (S/P/Bld) [Vol rate/Area] - PINF [facility] Glucose [Mass/Vol] 125 mg/dL High 82 - 115 mg/dL [facility] Interpretation and review of laboratory results Abnormal [facility] Potassium [Moles/Vol] 3.7 mmol/L 3.5 - 5.1 mmol/L [facility] Sodium [Moles/Vol] 135 mmol/L Low 136 - 145 mmol/L [facility] Urea nitrogen [Mass/Vol] 14 mg/dL 9 - 23 mg/d L [facility] Anion gap [Moles/Vol] 8 mmol/L 3 - 13 mmol/L [facility] Calcium [Mass/Vol] 8.5 mg/dL Low 8.8 - 10. 0 mg/dL [facility] Chloride [Moles/Vol] 108 mmol/L High 98 - 10 7 mmol/L [facility] CO2 [Moles/Vol] 23 mmol/L 23 - 31 mmol/L [facility] Creatinine [Mass/Vol] 0.56 mg/dL Low 0.57 - 1.11 mg/dL [facility] GFR/1.73 sq M.predicted (S/P/Bld) [Vol rate/Area] - PINF [facility] Glucose [Mass/Vol] 137 mg/dL High 82 - 115 mg/dL [facility] Interpretation and review of laboratory results Abnormal [facility] Potassium [Moles/Vol] 3.5 mmol/L 3.5 - 5.1 mmol/L [facility] Sodium [Moles/Vol] 139 mmol/L 136 - 145 mmol/L [facility] Urea nitrogen [Mass/Vol] 15 mg/dL 9 - 23 mg/d L [facility] Anion gap [Moles/Vol] 6 mmol/L 3 - 13 mmol/L [facility] Calcium [Mass/Vol] 8.5 mg/dL Low 8.8 - 10. 0 mg/dL [facility] Chloride [Moles/Vol] 110 mmol/L High 98 - 10 7 mmol/L [facility] CO2 [Moles/Vol] 23 mmol/L 23 - 31 mmol/L [facility] Creatinine [Mass/Vol] 0.58 mg/dL 0.57 - 1.11 mg/dL [facility] GFR/1.73 sq M.predicted (S/P/Bld) [Vol rate/Area] - PINF [facility] Glucose [Mass/Vol] 137 mg/dL High 82 - 115 mg/dL [facility] Potassium [Moles/Vol] 3.9 mmol/L 3.5 - 5.1 mmol/L [facility] Sodium [Moles/Vol] 139 mmol/L 136 - 145 mmol/L [facility] Urea nitrogen [Mass/Vol] 16 mg/dL 9 - 23 mg/d L [facility] Bilirubin.indirect [Mass/Vol ]on 11-28-2024 Bilirubin.conjugated [Mass/Vol] 0.6 mg/dL High NINF - 0.5 mg/dL [facility] Interpretation and review of laboratory results Abnormal [facility] C-REACTIVE PROTEINon 025 CRP [Mass/Vol] 30.3 mg/L High <5.0 [facility] Comment on above: Performed By: #### L AB89, LAB52, [id number], [id number], [id number], LAB15, LAB50, LAB96 ####Registration Coordinator: JESSY OWENS ([id number])[facility] ([facility])[address] [place] [address] CALCIUM, IONIZEDon CALCIUM IONIZED 4.50 mg/dL Normal 4.30-5.20 [facility] Comment on above: Performed By: #### L AB54 ####Registration Coordinator: JESSY OWENS ([id number])[facility] ([facility])[address] [place] [address] PH, IONIZED CALCIUM 7.50 High 7.31-7.46 [facility] Comment on above: Performed By: #### L AB54 ####Registration Coordinator: JESSY OWENS ([id number])[facility] ([facility])[address] [place] [address] CBC W Auto Differential pane l (Bld)on 11-28-2024 Erythrocyte distribution width (RBC) [Ratio] 16.4 % High 11.5 - 15.0 % [facility] Hematocrit (Bld) [Volume fraction] 21.7 % Low 35.0 - 47.0 % [facility] Hemoglobin (Bld) [Mass/Vol] 7.5 g/dL Low 11.7 - 16.0 g/dL [facility] IPF 3 [facility] MCH (RBC) [Entitic mass] 34.2 pg High 26. 0 - 34.0 pg [facility] MCHC (RBC) [Mass/Vol] 34.6 % 30.5 - 36.0 % [facility] MCV (RBC) [Entitic vol] 99.1 fL High 77.0 - 99.0 fL [employer] [facility] Platelet mean volume (Bld) [Entitic vol] 10.2 fL 9.0 - 12.7 fL [facility] Platelets (Bld) [#/Vol] 69 10*3/uL Low 140 - 440 10*3/uL [facility] RBC (Bld) [#/Vol] 2.19 10*6/uL Low 3.80 - 5.2 0 10*6/uL [facility] WBC (Bld) [#/Vol] 7.3 10*3/uL 3.6 - 10.7 10*3/uL [facility] CBC WITH AUTO DIFFERENTIALon 11-28-2024 Erythrocyte distribution width (RBC) [Ratio] 16.4 % High 11.5-15.0 [facility] Comment on above: Performed By: #### L AB296, [id number], [id number] ####Registration Coordinator: JESSY OWENS ([id number])[facility])[address] [place] [address] Hematocrit (Bld) [Volume fraction] 21.7 % Low 35.0-47.0 [facility] Comment on above: Performed By: #### Davidson AB296, [id number], [id number] ####Registration Coordinator: JESSY OWENS ([id number])[facility])[address] [place] [address] Hemoglobin (Bld) [Mass/Vol] 7.5 g/dL Low 11.7-16.0 [facility] Comment on above: Performed By: #### Davidson AB296, [id number], [id number] ####Registration Coordinator: JESSY OWENS ([id number])[facility])[address] [place] [address] IPF 3 Normal [facility] Comment on above: Performed By: #### Davidson AB296, [id number], [id number] ####Registration Coordinator: JESSY OWENS ([id number])[facility])[address] [place] [address] MCH (RBC) [Entitic mass] 34.2 pg High 26.0-34.0 [facility] Comment on above: Performed By: #### L AB296, [id number], [id number] ####Registration Coordinator: JESSY OWENS ([id number])[facility])[address] [place] [address] MCHC 34.6 % Normal 30.5-36.0 [facility] Comment on above: Performed By: #### L AB296, [id number], [id number] ####Registration Coordinator: JESSY OWENS ([id number])[facility] ([facility])[address] [place] [address] MCV (RBC) [Entitic vol] 99.1 fL High 77.0-99.0 [facility] Comment on above: Performed By: #### Davidson AB296, [id number], [id number] ####Registration Coordinator: JESSY OWENS ([id number])[facility] ([facility])[address] [place] [address] Platelet mean volume (Bld) [Entitic vol] 10.2 fL Normal 9.0-12.7 [facility] Comment on above: Performed By: #### Davidson AB296, [id number], [id number] ####Registration Coordinator: JESSY OWENS ([id number])[facility] ([facility])[address] [place] [address] Platelets (Bld) [#/Vol] 69 10*3/uL Low 140-440 [facility] Comment on above: Performed By: #### Davidson AB296, [id number], [id number] ####Registration Coordinator: JESSY OWENS ([id number])[facility] ([facility])[address] [place] [address] RBC (Bld) [#/Vol] 2.19 10*6/uL Low 3.80-5.20 [facility] Comment on above: Performed By: #### L AB296, [id number], [id number] ####Registration Coordinator: JESSY OWENS ([id number])[facility] ([facility])[address] [place] [address] WBC (Bld) [#/Vol] 7.3 10*3/uL Normal 3.6-10.7 [facility] Comment on above: Performed By: #### L AB296, [id number], [id number] ####Registration Coordinator: JESSY OWENS ([id number])[facility] ([facility])[address] [place] [address] [place] CRP [Mass/Vol]on 11-28-2024 Interpretation and review of laboratory results Abnormal [facility] Calcium.ionized [Moles/Vol]o n 11-28-2024 Calcium.ionized (Bld) [Moles/Vol] 4.5 mg/dL 4.30 - 5.20 mg/dL [facility] Interpretation and review of laboratory results Abnormal [facility] PH, IONIZED CALCIUM 7.5 High 7.31 - 7.46 [facility] Consulton 11-28-2024 Consult Normal [facility] HAPTOGLOBINon 11-28-2024 HAPTOGLOBIN 140 mg/dL Normal 50-270 [facility] Comment on above: Performed By: #### L AB89, LAB52, [id number], [id number], [id number], LAB15, LAB50, LAB96 ####Registration Coordinator: JESSY OWENS ([id number])[facility] ([facility])[address] [place] [address] [place] LACTATE DEHYDROGENASEon 11-17 LDH [Catalytic activity/Vol] 178 U/L Normal 125-220 [facility] Comment on above: Performed By: #### L AB96 ####Registration Coordinator: JESSY OWENS ([id number])[facility] ([facility])[address] [place] [address] LDH [Catalytic activity/Vol] 186 U/L Normal 125-220 [facility] Comment on above: Performed By: #### L AB89, LAB52, [id number], [id number], [id number], LAB15, LAB50, LAB96 ####Registration Coordinator: JESSY OWENS ([id number])[facility] ([facility])[address] [place] [address] [place] LDH Lactate to pyruvate reac tion [Catalytic activity/Vol]on 11-28-2024 Interpretation and review of laboratory results Normal [facility] - Chemistry and C hemistry - challengeon 11-28-2024 Magnesium [Mass/Vol] 1.8 mg/dL 1.6 - 2 .6 mg/dL [facility] LDH Lactate to pyruvate reaction [Catalytic activity/Vol] 178 U/L 125 - 220 U/L [facility] CRP [Mass/Vol] 30.3 mg/L High NINF - 5.0 mg/L [facility] Bilirubin [Mass/Vol] 1 mg/dL NINF - 1.2 mg/dL [facility] LDH Lactate to pyruvate reaction [Catalytic activity/Vol] 186 U/L 125 - 220 U/L [facility] Magnesium [Mass/Vol] 2.2 mg/dL 1.6 - 2 .6 mg/dL [facility] - Drug toxicology on 11-28-2024 Vancomycin trough [Mass/Vol] 29.5 ug/mL [facility] - Hematology and Cell countson 11-28-2024 Band form neutrophils (Bld) [#/Vol] 0.5 10*3/uL High NINF - 0.0 10*3/uL [facility] Band form neutrophils/100 WBC (Bld) 7 % High NINF - 0 % [facility] Lymphocytes (Bld) [#/Vol] 1.2 10*3/uL 1.0 - 4.3 10*3/uL [facility] Lymphocytes/100 WBC (Bld) 17 % 15 - 45 % [facility] Monocytes (Bld) [#/Vol] 0.2 10*3/uL 0.0 - 0.9 10*3/uL [facility] Monocytes/100 WBC (Bld) 3 % Low 5 - 13 % [facility] Myelocytes (Bld) [#/Vol] 0.1 10*3/uL High BRITTANI F - 0.0 10*3/uL [facility] Myelocytes/100 WBC (Bld) 1 % High NINF - 0 % [facility] Neutrophils (Bld) [#/Vol] 5.8 10*3/uL 1.8 - 7.5 10*3/uL [facility] Nucleated RBC/100 WBC (Bld) [Ratio] 2 % 0 - 2 % [facility] RBC morphology finding Nom (Bld) Normal [facility] Segmented neutrophils/100 WBC (Bld) 72 % 38 - 82 % [facility] Haptoglobin [Mass/Vol] 140 mg/dL 50 - 270 mg/dL [facility] - Microbiology an d Antimicrobial susceptibilityOrdered By: Joon Alvarez on 11-28-2024 Bacteria identified Aer cx Nom (Unsp spec) Few enteric rula present [facility] MAGNESIUMon 11-28-2024 Magnesium [Mass/Vol] 1.8 mg/dL Normal 1.6-2.6 [facility] Comment on above: Result Comment: ORDE R COMMENTS:Higher values can be expected in females during menses. Performed By: #### L AB15, [id number], [id number] ####Registration Coordinator: JESSY OWENS ([id number])[facility] ([facility])[address] [place] [address] Magnesium [Mass/Vol] 2.2 mg/dL Normal 1.6-2.6 [facility] Comment on above: Result Comment: ORDE R COMMENTS:Higher values can be expected in females during menses. Performed By: #### L AB89, LAB52, [id number], [id number], [id number], LAB15, LAB50, LAB96 ####Registration Coordinator: JESSY OWENS ([id number])[facility] ([facility])[address] [place] [address] MANUAL DIFFERENTIAL (CELLAVI ZOIE)on 11-28-2024 BAND NEUTROPHILS TOTAL PER COUNTED LEUKOCYTES BY MANUAL COUNT 7 Normal [facility] Comment on above: Performed By: #### L AB296, [id number], [id number] ####Registration Coordinator: JESSY OWENS ([id number])[facility] ([facility])[address] [place] [address] BANDS (10*3/UL) IN BLOOD-CELLAVISION 0.5 10*3/uL High <=0.0 [facility] Comment on above: Performed By: #### L AB296, [id number], [id number] ####Registration Coordinator: JESSY OWENS ([id number])[facility] ([facility])[address] [place] [address] [place] BASOPHILS TOTAL PER COUNTED LEUKOCYTES BY MANUAL COUNT [facility] Comment on above: Performed By: #### L AB296, [id number], [id number] ####Registration Coordinator: JESSY OWENS ([id number])[facility] ([facility])[address] [place] [address] [place] BLASTS TOTAL PER COUNTED LEUKOCYTES BY MANUAL COUNT Normal [facility] Comment on above: Performed By: #### L AB296, [id number], [id number] ####Registration Coordinator: JESSY OWENS ([id number])[facility])[address] [place] [address] [place] EOSINOPHILS TOTAL PER COUNTED LEUKOCYTES BY MANUAL COUNT Normal [facility] Comment on above: Performed By: #### L AB296, [id number], [id number] ####Registration Coordinator: JESSY OWENS ([id number])[facility] ([facility])[address] [place] [address] [place] LYMPHOCYTES (10*3/UL) IN BLOOD-CELLAVISION 1.2 10*3/uL Normal 1.0-4.3 [facility] Comment on above: Performed By: #### L AB296, [id number], [id number] ####Registration Coordinator: JESSY OWENS ([id number])[facility] ([facility])[address] [place] [address] [place] LYMPHOCYTES TOTAL PER COUNTED LEUKOCYTES BY MANUAL COUNT 17 Normal [facility] Comment on above: Performed By: #### L AB296, [id number], [id number] ####Registration Coordinator: JESSY OWENS ([id number])[facility])[address] [place] [address] [place] LYMPHOCYTES/100 LEUKOCYTES IN BLOOD-CELLAVISION 17 % Normal 15-45 [facility] Comment on above: Performed By: #### L AB296, [id number], [id number] ####Registration Coordinator: JESSY OWENS ([id number])[facility] ([facility])[address] [place] [address] [place] METAMYELOCYTES TOTAL PER COUNTED LEUKOCYTES BY MANUAL COUNT Normal [facility] Comment on above: Performed By: #### L AB296, [id number], [id number] ####Registration Coordinator: JESSY OWENS ([id number])[facility] ([facility])[address] [place] [address] [place] MONOCYTES (10*3/UL) IN BLOOD-CELLAVISION 0.2 10*3/uL Normal 0.0-0.9 [facility] Comment on above: Performed By: #### Davidson AB296, [id number], [id number] ####Registration Coordinator: JESSY OWENS ([id number])[facility] ([facility])[address] [place] [address] [place] MONOCYTES TOTAL PER COUNTED LEUKOCYTES BY MANUAL COUNT 3 Normal [facility] Comment on above: Performed By: #### Davidson AB296, [id number], [id number] ####Registration Coordinator: JESSY OWENS ([id number])[facility] ([facility])[address] [place] [address] [place] MONOCYTES/100 LEUKOCYTES IN BLOOD-GIRMA 3 % Low 5-13 [facility] Comment on above: Performed By: #### Davidson AB296, [id number], [id number] ####Registration Coordinator: JESSY OWENS ([id number])[facility] ([facility])[address] [place] [address] [place] MYELOCYTES (10*3/UL) IN BLOOD-CELLAVISION 0.1 10*3/uL High <=0.0 [facility] Comment on above: Performed By: #### Davidson AB296, [id number], [id number] ####Registration Coordinator: JESSY OWENS ([id number])[facility] ([facility])[address] [place] [address] [place] MYELOCYTES COUNTED BY MANUAL COUNT 1 Normal [facility] Comment on above: Performed By: #### L AB296, [id number], [id number] ####Registration Coordinator: JESSY OWENS ([id number])[facility] ([facility])[address] [place] [address] [place] MYELOCYTES/100 LEUKOCYTES IN BLOOD-CELLAVISION 1 % High <=0 [facility] Comment on above: Performed By: #### L AB296, [id number], [id number] ####Registration Coordinator: JESSY OWENS ([id number])[facility] ([facility])[address] [place] [address] [place] NEUTROPHILS BAND FORM/100 LEUKOCYTES IN BLOOD-CELLAVISI 7 % High <=0 [facility] Comment on above: Performed By: #### L AB296, [id number], [id number] ####Registration Coordinator: JESSY OWENS ([id number])[facility] [place] [address] [place] NEUTROPHILS TOTAL PER COUNTED LEUKOCYTES BY MANUAL COUNT 72 Normal [facility] Comment on above: Performed By: #### L AB296, [id number], [id number] ####Registration Coordinator: JESSY OWENS ([id number])[facility] ([facility])[address] [place] [address] [place] NUCLEATED ERYTHROCYTES/100 LEUKOCTES IN BLOOD-CELLAVISION 2 % Normal 0-2 [facility] Comment on above: Performed By: #### L AB296, [id number], [id number] ####Registration Coordinator: JESSY OWENS ([id number])[facility] ([facility])[address] [place] [address] [place] PROMYELOCYTES TOTAL PER COUNTED LEUKOCYTES BY MANUAL COUNT [facility] Comment on above: Performed By: #### L AB296, [id number], [id number] ####Registration Coordinator: JESSY OWENS ([id number])[facility] ([facility])[address] [place] [address] [place] RBC MORPHOLOGY IN BLOOD Normal Normal [facility] Comment on above: Performed By: #### L AB296, [id number], [id number] ####Registration Coordinator: JESSY OWENS ([id number])[facility] ([facility])[address] [place] [address] [place] SEGMENTED NEUTROPHILS (10*3/UL) IN BLOOD-CELLAVISION 5.8 10*3/uL Normal 1.8-7.5 [facility] Comment on above: Performed By: #### L AB296, [id number], [id number] ####Registration Coordinator: JESSY OWENS ([id number])[facility] ([facility])[address] [place] [address] [place] SEGMENTED NEUTROPHILS/100 LEUKOCYTES-CE 72 % Normal 38-82 [facility] Comment on above: Performed By: #### L AB296, [id number], [id number] ####Registration Coordinator: JESSY OWESN ([id number])[facility])[address] [place] [address] UNCLASSIFIED CELLS TOTAL PER COUNTED LEUKOCYTES BY MANUAL COUNT Normal [facility] Comment on above: Performed By: #### L AB296, [id number], [id number] ####Registration Coordinator: JESSY OWENS ([id number])[facility])[address] [place] [address] VARIANT LYMPHOCYTES TOTAL PER COUNTED LEUKOCYTES BY MANUAL COUNT Normal [facility] Comment on above: Performed By: #### L AB296, [id number], [id number] ####Registration Coordinator: JESSY OWENS ([id number])[facility])[address] [place] [address] Magnesium [Mass/Vol]on 11-28 Interpretation and review of laboratory results Normal [facility] No Panel Informationon 11-28 Bands Manual 7 [facility] Interpretation and review of laboratory results Abnormal [facility] Lymphocytes Manual 17 [facility] Monocytes Manual 3 [facility] alth Myelocytes Manual 1 [facility] ealth Neutrophils Manual 72 [facility] Interpretation and review of laboratory results Normal [facility] Interpretation and review of laboratory results Normal [facility] Interpretation and review of laboratory results Abnormal [facility] PHOSPHORUSon 11-28-2024 Phosphate [Mass/Vol] 1.8 mg/dL Low 2.3-4.7 [facility] Comment on above: Performed By: #### L AB15, [id number], [id number] ####Registration Coordinator: JESSY OWENS ([id number])[facility])[address] [place] [address] [place] Phosphate [Mass/Vol] 1.4 mg/dL Low 2.3-4.7 [facility] Comment on above: Performed By: #### L AB89, LAB52, [id number], [id number], [id number], LAB15, LAB50, LAB96 ####Registration Coordinator: JESSY OWENS ([id number])[facility])[address] [place] [address] Phosphate [Moles/Vol]on 11-17 Interpretation and review of laboratory results Abnormal [facility] Phosphate [Mass/Vol] 1.8 mg/dL Low 2.3 - 4 .7 mg/dL [facility] Phosphate [Mass/Vol] 1.4 mg/dL Low 2.3 - 4 .7 mg/dL [facility] Progress Noteon 11-28-2024 Progress Note Vancomycin therapy has been discontinued by [address] on 11/28/24. Thank you for the consult. Pharmacy signing off for vancomycin dosing. Lindsey Vazquez [facility], PharmD Date: 11/28/24 Time: 3:06 PM Normal [facility] Progress Note Normal [facility] Progress Note Normal [facility] RETICULOCYTESon 11-28-2024 Reticulocytes/100 RBC (Bld) 1.84 % Normal [facility] Comment on above: Result Comment: Newb orn < 5%Adults 0.4 - 2.0% Performed By: #### L AB296, [id number], [id number] ####Registration Coordinator: JESSY OWENS ([id number])[facility])[address] [place] [address] Reticulocytes panel (Bld)on 11-28-2024 Reticulocytes/100 RBC (Bld) 1.84 % [facility] VANCOMYCIN, AUC TIMED DOSING on 11-28-2024 VANCOMYCIN, AUC 29.5 ug/mL Normal [facility] Comment on above: Result Comment: ORDE R COMMENTS:@@ With morning labs, can be drawn anytime EXCEPT within 2 hours of completed dose. @@Toxicity is seen at concentrations >80-100 ug/mLTherapeutic (Peak) range: 20-40Therapeutic (Trough) range: 5-10 Performed By: #### L AB39 ####Registration Coordinator: JESSY OWENS ([id number])[facility] ([facility])[address] [place] [address] [place] Vancomycin trough [Mass/Vol] on 11-28-2024 [facility] 30on 11-27-2024 30 Normal [facility] BASIC METABOLIC PANELon 11-17 Anion gap [Moles/Vol] 8 mmol/L Normal 3-13 [facility] Comment on above: Performed By: #### L AB15 ####Registration Coordinator: JESSY WOENS ([id number])[facility] [facility] ([facility])[address] [place] [address] Calcium [Mass/Vol] 8.3 mg/dL Low 8.8-10.0 [facility] Comment on above: Performed By: #### L AB15 ####Registration Coordinator: JESSY OWENS ([phone])[facility] ([facility])[address] [place] [address] Chloride [Moles/Vol] 109 mmol/L High 98-107 [facility] Comment on above: Performed By: #### L AB15 ####Registration Coordinator: JESSY OWENS ([id number])[facility] ([facility])[address] [place] [address] [place] CO2 [Moles/Vol] 21 mmol/L Low 23-31 [facility] Comment on above: Performed By: #### L AB15 ####Registration Coordinator: JESSY OWENS ([id number])[facility])[address] [place] [address] Creatinine [Mass/Vol] 0.60 mg/dL Normal 0.57-1.11 [facility] Comment on above: Performed By: #### L AB15 ####Registration Coordinator: JESSY OWENS ([phone])[facility])[address] [place] [address] [place] GLOMERULAR FILTRATION RATE ML/MIN/1.73 SQ M.PREDICTED >90.0 Normal >60.0 [facility] Comment on above: Result Comment: Calc ulation based on the Chronic Kidney Disease Epidemiology Collaboration (CKD-EPI) equation refit without adjustment for race Performed By: #### L AB15 ####Registration Coordinator: JESSY OWENS ([id number])[facility] [place] [address] [place] Glucose [Mass/Vol] 150 mg/dL High 82-115 [facility] Comment on above: Performed By: #### L AB15 ####Registration Coordinator: JESSY OWENS ([id number])[facility] ([facility])[address] [place] [address] [place] Potassium [Moles/Vol] 4.0 mmol/L Normal 3.5-5.1 [facility] Comment on above: Result Comment: [facility] potassium values may be up to 0.5 mmol/L lower than serum values. Performed By: #### L AB15 ####Registration Coordinator: JESSY OWENS ([id number])[facility] ([facility])[address] [place] [address] Sodium [Moles/Vol] 138 mmol/L Normal 136-145 [facility] Comment on above: Performed By: #### L AB15 ####Registration Coordinator: JESSY OWENS ([id number])[facility] ([facility])[address] [place] [address] [place] Urea nitrogen [Mass/Vol] 17 mg/dL Normal 9-23 [facility] Comment on above: Performed By: #### L AB15 ####Registration Coordinator: JESSY OWENS ([id number])[facility] ([facility])[address] [place] [address] Anion gap [Moles/Vol] 10 mmol/L Normal 3-13 [facility] Comment on above: Performed By: #### L AB15, [id number] ####Registration Coordinator: JESSY OWENS ([id number])[facility] ([facility])[address] [place] [address] [place] Calcium [Mass/Vol] 8.3 mg/dL Low 8.8-10.0 [facility] Comment on above: Performed By: #### L AB15, [id number] ####Registration Coordinator: JESSY OWENS ([id number])[facility] ([facility])[address] [place] [address] Chloride [Moles/Vol] 108 mmol/L High 98-107 [facility] Comment on above: Performed By: #### L AB15, [id number] ####Registration Coordinator: JESSY OWENS ([id number])[facility])[address] [place] [address] CO2 [Moles/Vol] 23 mmol/L Normal 23-31 [facility] Comment on above: Performed By: #### L AB15, [id number] ####Registration Coordinator: JESSY OWENS ([id number])[facility])[address] [place] [address] Creatinine [Mass/Vol] 0.54 mg/dL Low 0.57-1.11 [facility] Comment on above: Performed By: #### Davidson AB15, [id number] ####Registration Coordinator: JESSY OWENS ([id number])[facility])[address] [place] [address] GLOMERULAR FILTRATION RATE ML/MIN/1.73 SQ M.PREDICTED >90.0 Normal >60.0 [facility] Comment on above: Result Comment: Calc ulation based on the Chronic Kidney Disease Epidemiology Collaboration (CKD-EPI) equation refit without adjustment for race Performed By: #### L AB15, [id number] ####Registration Coordinator: JESSY OWENS ([id number])[facility])[address] [place] [address] Glucose [Mass/Vol] 151 mg/dL High 82-115 [facility] Comment on above: Performed By: #### L AB15, [id number] ####Registration Coordinator: JESSY OWENS ([id number])[facility])[address] [place] [address] Potassium [Moles/Vol] 3.4 mmol/L Low 3.5-5.1 [facility] Comment on above: Result Comment: [facility] potassium values may be up to 0.5 mmol/L lower than serum values. Performed By: #### L AB15, [id number] ####Registration Coordinator: JESSY OWENS ([id number])[facility] [place] [address] Sodium [Moles/Vol] 141 mmol/L Normal 136-145 [facility] Comment on above: Performed By: #### L AB15, [id number] ####Registration Coordinator: JESSY OWENS ([id number])[facility] ([facility])[address] [place] [address] Urea nitrogen [Mass/Vol] 16 mg/dL Normal 9-23 [facility] Comment on above: Performed By: #### L AB15, [id number] ####Registration Coordinator: JESSY OWENS ([id number])[facility] ([facility])[address] [place] [address] BLOOD TYPE AND SCREEN GELon 11-27-2024 ABO GROUPING A Normal [facility] Comment on above: Performed By: #### L [id number] ####Registration Coordinator: JESSY OWENS ([id number])[facility] ([facility])[address] [place] [address] RH TYPE IN BLOOD Positive Normal [facility] Comment on above: Performed By: #### L [id number] ####Registration Coordinator: JESSY OWENS ([id number])[facility] ([facility])[address] [place] [address] Bacteria identified Cx Nom ( U)Ordered By: Ange Hennessy on 11-27-2024 Interpretation and review of laboratory results Abnormal [facility] Basic metabolic 1998 panelon 11-27-2024 Anion gap [Moles/Vol] 8 mmol/L 3 - 13 mmol/L [facility] Calcium [Mass/Vol] 8.3 mg/dL Low 8.8 - 10. 0 mg/dL [facility] Chloride [Moles/Vol] 109 mmol/L High 98 - 10 7 mmol/L [facility] CO2 [Moles/Vol] 21 mmol/L Low 23 - 31 mmol/L [facility] Creatinine [Mass/Vol] 0.6 mg/dL 0.57 - 1.11 mg/dL [facility] GFR/1.73 sq M.predicted (S/P/Bld) [Vol rate/Area] - PINF [facility] Glucose [Mass/Vol] 150 mg/dL High 82 - 115 mg/dL [facility] Interpretation and review of laboratory results Abnormal [facility] Potassium [Moles/Vol] 4 mmol/L 3.5 - 5.1 mmol/L [facility] Sodium [Moles/Vol] 138 mmol/L 136 - 145 mmol/L [facility] Urea nitrogen [Mass/Vol] 17 mg/dL 9 - 23 mg/d L [facility] Anion gap [Moles/Vol] 12 mmol/L 3 - 13 mmol/L [facility] Calcium [Mass/Vol] 8.4 mg/dL Low 8.8 - 10. 0 mg/dL [facility] Chloride [Moles/Vol] 108 mmol/L High 98 - 10 7 mmol/L [facility] CO2 [Moles/Vol] 19 mmol/L Low 23 - 31 mmol/L [facility] Creatinine [Mass/Vol] 0.59 mg/dL 0.57 - 1.11 mg/dL [facility] GFR/1.73 sq M.predicted (S/P/Bld) [Vol rate/Area] - PINF [facility] Glucose [Mass/Vol] 188 mg/dL High 82 - 115 mg/dL [facility] Interpretation and review of laboratory results Abnormal [facility] Potassium [Moles/Vol] 3.3 mmol/L Low 3.5 - 5.1 mmol/L [facility] Sodium [Moles/Vol] 139 mmol/L 136 - 145 mmol/L [facility] Urea nitrogen [Mass/Vol] 23 mg/dL 9 - 23 mg/d L [facility] Basic metabolic 1998 panelOr dered By: Sadaf De La Cruz on 11-27-2024 Anion gap [Moles/Vol] 10 mmol/L 3 - 13 mmol/L [facility] Calcium [Mass/Vol] 8.3 mg/dL Low 8.8 - 10. 0 mg/dL [facility] Chloride [Moles/Vol] 108 mmol/L High 98 - 10 7 mmol/L [facility] CO2 [Moles/Vol] 23 mmol/L 23 - 31 mmol/L [facility] Creatinine [Mass/Vol] 0.54 mg/dL Low 0.57 - 1.11 mg/dL [facility] GFR/1.73 sq M.predicted (S/P/Bld) [Vol rate/Area] - PINF [facility] Glucose [Mass/Vol] 151 mg/dL High 82 - 115 mg/dL [facility] Interpretation and review of laboratory results Abnormal [facility] Potassium [Moles/Vol] 3.4 mmol/L Low 3.5 - 5.1 mmol/L [facility] Sodium [Moles/Vol] 141 mmol/L 136 - 145 mmol/L [facility] Urea nitrogen [Mass/Vol] 16 mg/dL 9 - 23 mg/d L [facility] Blood type and Crossmatch pa gilles (Bld)on 11-27-2024 ABO group Nom (Bld) A [facility] Blood group antibody screen GEL Ql Negative [facility] D Ag Ql (RBC) Positive [facility] CALCIUM, IONIZEDon 5 CALCIUM IONIZED 4.30 mg/dL Normal 4.30-5.20 [facility] Comment on above: Performed By: #### L AB54 ####Registration Coordinator: JESSY OWENS ([id number])[facility])[address] [place] [address] PH, IONIZED CALCIUM 7.56 High 7.31-7.46 [facility] Comment on above: Performed By: #### L AB54 ####Registration Coordinator: JESSY OWENS ([id number])[facility])[address] [place] [address] CBC W Auto Differential pane l (Bld)Ordered By: Lashonda Curran on 11-27-2024 Erythrocyte distribution width (RBC) [Ratio] 13.5 % 11.5 - 15.0 % [facility] Hematocrit (Bld) [Volume fraction] 19.6 % Low 35.0 - 47.0 % [facility] Hemoglobin (Bld) [Mass/Vol] 6.8 g/dL Critically low 11.7 - 16.0 g/dL [facility] Interpretation and review of laboratory results Abnormal [facility] IPF 2 [facility] MCH (RBC) [Entitic mass] 34.5 pg High 26. 0 - 34.0 pg [facility] MCHC (RBC) [Mass/Vol] 34.7 % 30.5 - 36.0 % [facility] MCV (RBC) [Entitic vol] 99.5 fL High 77.0 - 99.0 fL [facility] Platelet mean volume (Bld) [Entitic vol] 10 fL 9.0 - 12.7 fL [facility] Platelets (Bld) [#/Vol] 103 10*3/uL Low 140 - 440 10*3/uL [facility] RBC (Bld) [#/Vol] 1.97 10*6/uL Low 3.80 - 5.2 0 10*6/uL [facility] WBC (Bld) [#/Vol] 8.4 10*3/uL 3.6 - 10.7 10*3/uL [facility] CBC WITH AUTO DIFFERENTIALon 11-27-2024 Erythrocyte distribution width (RBC) [Ratio] 13.5 % Normal 11.5-15.0 [facility] Comment on above: Performed By: #### Davidson [id number], [id number] ####Registration Coordinator: JESSY OWENS ([id number])[address] Hematocrit (Bld) [Volume fraction] 19.6 % Low 35.0-47.0 [facility] Comment on above: Performed By: #### Davidson [id number], [id number] ####Registration Coordinator: JESSY OWENS ([id number])[address] Hemoglobin (Bld) [Mass/Vol] 6.8 g/dL Critically low 11.7-16.0 [facility] Comment on above: Performed By: #### L [id number], [id number] ####Registration Coordinator: JESSY OWENS ([id number])[address] IPF 2 Normal [facility] Comment on above: Performed By: #### L [id number], [id number] ####Registration Coordinator: JESSY OWENS ([id number])[facility])[address] [place] [address] MCH (RBC) [Entitic mass] 34.5 pg High 26.0-34.0 [facility] Comment on above: Performed By: #### L [id number], [id number] ####Registration Coordinator: JESSY OWENS ([id number])[facility])[address] [place] [address] MCHC 34.7 % Normal 30.5-36.0 [facility] Comment on above: Performed By: #### Davidson [id number], [id number] ####Registration Coordinator: JESSY OWENS ([id number])[facility] ([facility])[address] [place] [address] MCV (RBC) [Entitic vol] 99.5 fL High 77.0-99.0 [facility] Comment on above: Performed By: #### Davidson COYLE8, [id number] ####Registration Coordinator: JESSY OWENS ([id number])[facility] ([facility])[address] [place] [address] Platelet mean volume (Bld) [Entitic vol] 10.0 fL Normal 9.0-12.7 [facility] Comment on above: Performed By: #### Davidson MCCLELLAN, [id number] ####Registration Coordinator: JESSY OWENS ([id number])[facility] ([facility])[address] [place] [address] Platelets (Bld) [#/Vol] 103 10*3/uL Low 140-440 [facility] Comment on above: Performed By: #### Davidson [id number], [id number] ####Registration Coordinator: JESSY OWENS ([id number])[facility] ([facility])[address] [place] [address] [place] RBC (Bld) [#/Vol] 1.97 10*6/uL Low 3.80-5.20 [facility] Comment on above: Performed By: #### L [id number], [id number] ####Registration Coordinator: JESSY OWENS ([id number])[facility])[address] [place] [address] [place] WBC (Bld) [#/Vol] 8.4 10*3/uL Normal 3.6-10.7 [facility] Comment on above: Performed By: #### Davidson [id number], [id number] ####Registration Coordinator: JESSY OWENS ([id number])[facility] ([facility])[address] [place] [address] COMPREHENSIVE METABOLIC PANE Neo 11-27-2024 Albumin [Mass/Vol] 2.3 g/dL Low 3.4-4.8 [facility] Comment on above: Performed By: #### L AB113, [id number], LAB17 ####Registration Coordinator: JESSY OWENS ([id number])[facility] ([facility])[address] [place] [address] ALP [Catalytic activity/Vol] 82 U/L Normal 40-150 [facility] Comment on above: Performed By: #### Davidson ABNitza, [id number], LAB17 ####Registration Coordinator: JESSY OWENS ([id number])[facility] ([facility])[address] [place] [address] ALT [Catalytic activity/Vol] 10 U/L Normal <30 [facility] Comment on above: Performed By: #### Davidson AB113, [id number], LAB17 ####Registration Coordinator: JESSY OWENS ([id number])[facility] ([facility])[address] [place] [address] Anion gap [Moles/Vol] 10 mmol/L Normal 3-13 [facility] Comment on above: Performed By: #### Davidson AB113, [id number], LAB17 ####Registration Coordinator: JESSY OWENS ([id number])[facility] ([facility])[address] [place] [address] AST [Catalytic activity/Vol] 18 U/L Normal <34 [facility] Comment on above: Performed By: #### L AB113, [id number], LAB17 ####Registration Coordinator: JESSY OWENS ([id number])[facility] ([facility])[address] [place] [address] Bilirubin [Mass/Vol] 1.0 mg/dL Normal <1.2 [facility] Comment on above: Performed By: #### Davidson AB113, [id number], LAB17 ####Registration Coordinator: JESSY OWENS ([id number])[facility])[address] [place] [address] Calcium [Mass/Vol] 8.3 mg/dL Low 8.8-10.0 [facility] Comment on above: Performed By: #### Davidson ABNitza, [id number], LAB17 ####Registration Coordinator: JESSY OWENS ([id number])[facility] [place] [address] Chloride [Moles/Vol] 108 mmol/L High 98-107 [facility] Comment on above: Performed By: #### Davidson AB113, [id number], LAB17 ####Registration Coordinator: JESSY OWENS ([id number])[facility])[address] [place] [address] CO2 [Moles/Vol] 22 mmol/L Low 23-31 [facility] Comment on above: Performed By: #### Davidson ABNitza, [id number], LAB17 ####Registration Coordinator: JESSY OWENS ([id number])[facility])[address] [place] [address] Creatinine [Mass/Vol] 0.59 mg/dL Normal 0.57-1.11 [facility] Comment on above: Performed By: #### Davidson ABNitza, [id number], LAB17 ####Registration Coordinator: JESSY OWENS ([id number])[facility])[address] [place] [address] GLOMERULAR FILTRATION RATE ML/MIN/1.73 SQ M.PREDICTED >90.0 Normal >60.0 [facility] Comment on above: Result Comment: Calc ulation based on the Chronic Kidney Disease Epidemiology Collaboration (CKD-EPI) equation refit without adjustment for race Performed By: #### L AB113, [id number], LAB17 ####Registration Coordinator: JESSY OWENS ([id number])[facility])[address] [place] [address] [place] Glucose [Mass/Vol] 168 mg/dL High 82-115 [facility] Comment on above: Performed By: #### L AB113, [id number], LAB17 ####Registration Coordinator: JESSY OWENS ([id number])[facility])[address] [place] [address] Potassium [Moles/Vol] 2.4 mmol/L Critically low 3.5-5.1 [facility] Comment on above: Result Comment: [facility]as ma potassium values may be up to 0.5 mmol/L lower than serum values. Performed By: #### L AB113, [id number], LAB17 ####Registration Coordinator: JESSY OWENS ([id number])[facility])[address] [place] [address] Protein [Mass/Vol] 5.1 g/dL Low 6.4-8.3 [facility] Comment on above: Performed By: #### L AB113, [id number], LAB17 ####Registration Coordinator: JESSY OWENS ([id number])[facility] ([facility])[address] [place] [address] Sodium [Moles/Vol] 140 mmol/L Normal 136-145 [facility] Comment on above: Performed By: #### L AB113, [id number], LAB17 ####Registration Coordinator: JESSY OWENS ([id number])[facility])[address] [place] [address] Urea nitrogen [Mass/Vol] 17 mg/dL Normal 9-23 [facility] Comment on above: Performed By: #### L AB113, [id number], LAB17 ####Registration Coordinator: JESSY OWENS ([id number])[facility])[address] [place] [address] [place] Calcium.ionized [Moles/Vol]o n 11-27-2024 Calcium.ionized (Bld) [Moles/Vol] 4.3 mg/dL 4.30 - 5.20 mg/dL [facility] Interpretation and review of laboratory results Abnormal [facility] PH, IONIZED CALCIUM 7.56 High 7.31 - 7.46 [facility] Comprehensive metabolic 1998 panelOrdered By: Rob Dunn on 11-27-2024 Albumin [Mass/Vol] 2.3 g/dL Low 3.4 - 4.8 g/dL [facility] ALP [Catalytic activity/Vol] 82 U/L 40 - 150 U/L [facility] ALT [Catalytic activity/Vol] 10 U/L NINF - 30 U/L [facility] Anion gap [Moles/Vol] 10 mmol/L 3 - 13 mmol/L [facility] AST [Catalytic activity/Vol] 18 U/L NINF - 34 U/L [facility] Bilirubin [Mass/Vol] 1 mg/dL NINF - 1.2 mg/dL [facility] Calcium [Mass/Vol] 8.3 mg/dL Low 8.8 - 10. 0 mg/dL [facility] Chloride [Moles/Vol] 108 mmol/L High 98 - 10 7 mmol/L [facility] CO2 [Moles/Vol] 22 mmol/L Low 23 - 31 mmol/L [facility] Creatinine [Mass/Vol] 0.59 mg/dL 0.57 - 1.11 mg/dL [facility] GFR/1.73 sq M.predicted (S/P/Bld) [Vol rate/Area] - PINF [facility] Glucose [Mass/Vol] 168 mg/dL High 82 - 115 mg/dL [facility] Interpretation and review of laboratory results Abnormal [facility] Potassium [Moles/Vol] 2.4 mmol/L Critically low 3.5 - 5.1 mmol/L [facility] Protein [Mass/Vol] 5.1 g/dL Low 6.4 - 8.3 g/dL [facility] Sodium [Moles/Vol] 140 mmol/L 136 - 145 mmol/L [facility] Urea nitrogen [Mass/Vol] 17 mg/dL 9 - 23 mg/d L [facility] ECG 12-LEADon 11-27-2024 ECG 12-LEAD IMPRESSION: Sinus rhythm MOBITZ I AV BLOCK ([place] Nonspecific intraventricular conduction delay Nonspecific repol abnormality, diffuse leads Electronically Signed On 11-27-2024 12:45:25 EDT by Saloni Moreno [facility] ECG 12-LEAD IMPRESSION: SINUS RHYTHM Ventricular premature complex Nonspecific intraventricular conduction delay Nonspecific repol abnormality, diffuse leads Borderline prolonged QT interval Electronically Signed On 11-27-2024 12:44:23 EDT by Saloni Moreno [facility] HEMOGLOBIN AND HEMATOCRIT, B LOODon 11-27-2024 Hematocrit (Bld) [Volume fraction] 21.1 % Low 35.0-47.0 [facility] Comment on above: Order Comment: Recom mend 1 hour post transfusion Performed By: #### L [id number] ####Registration Coordinator: JESSY OWENS ([id number])[facility])[address] [place] [address] Hemoglobin (Bld) [Mass/Vol] 7.3 g/dL Low 11.7-16.0 [facility] Comment on above: Order Comment: Recom mend 1 hour post transfusion Performed By: #### L AB753 ####Registration Coordinator: JESSY OWENS ([id number])[facility] ([facility])[address] [place] [address] Hemoglobin (Bld) [Mass/Vol]O rdered By: Skylar Rodriguez on 11-27-2024 Hematocrit (Bld) [Volume fraction] 21.1 % Low 35.0 - 47.0 % [facility] Interpretation and review of laboratory results Abnormal [facility] - Chemistry and C hemistry - challengeon 11-27-2024 Procalcitonin [Mass/Vol] 0.12 ng/mL High BRITTANI F - 0.07 ng/mL [facility] Magnesium [Mass/Vol] 1.5 mg/dL Low 1.6 - 2 .6 mg/dL [facility] - Hematology and Cell countsOrdered By: Skylar Rodriguez on 11-27-2024 Hemoglobin (Bld) [Mass/Vol] 7.3 g/dL Low 11.7 - 16.0 g/dL [facility] - Hematology and Cell countson 11-27-2024 Lymphocytes (Bld) [#/Vol] 0.9 10*3/uL Low 1.0 - 4.3 10*3/uL [facility] Lymphocytes/100 WBC (Bld) 11 % Low 15 - 45 % [facility] Monocytes (Bld) [#/Vol] 0.2 10*3/uL 0.0 - 0.9 10*3/uL [facility] Monocytes/100 WBC (Bld) 2 % Low 5 - 13 % [facility] Neutrophils (Bld) [#/Vol] 7.3 10*3/uL 1.8 - 7.5 10*3/uL [facility] Nucleated RBC/100 WBC (Bld) [Ratio] 2 % 0 - 2 % [facility] RBC morphology finding Nom (Bld) Normal [facility] Segmented neutrophils/100 WBC (Bld) 87 % High 38 - 82 % [facility] - Microbiology an d Antimicrobial susceptibilityOrdered By: Ange Hennessy on 11-27-2024 Bacteria identified Cx Nom (U) Normal urogenital rula present [facility] Bacteria identified Cx Nom (U) 10,000-50,000 CFU/mL Escherichia coli Abnormal [facility] MAGNESIUMon 11-27-2024 Magnesium [Mass/Vol] 1.5 mg/dL Low 1.6-2.6 [facility] Comment on above: Result Comment: TANA Wick COMMENTS:Higher values can be expected in females during menses. Performed By: #### L AB113, [id number], LAB17 ####Registration Coordinator: JESSY OWENS ([id number])[facility] ([facility])[address] [place] [address] MANUAL DIFFERENTIAL (CELLAVI ZOIE)on 11-27-2024 BAND NEUTROPHILS TOTAL PER COUNTED LEUKOCYTES BY MANUAL COUNT [facility] Comment on above: Performed By: #### Davidson [id number], [id number] ####Registration Coordinator: JESSY OWENS ([id number])[facility] ([facility])[address] [place] [address] BASOPHILS TOTAL PER COUNTED LEUKOCYTES BY MANUAL COUNT [facility] [facility] Comment on above: Performed By: #### L [id number], [id number] ####Registration Coordinator: JESSY OWENS ([id number])[facility] ([facility])[address] [place] [address] BLASTS TOTAL PER COUNTED LEUKOCYTES BY MANUAL COUNT [facility] Comment on above: Performed By: #### L [id number], [id number] ####Registration Coordinator: JESSY OWENS ([id number])[facility] [place] [address] [place] EOSINOPHILS TOTAL PER COUNTED LEUKOCYTES BY MANUAL COUNT Normal [facility] Comment on above: Performed By: #### L [id number], [id number] ####Registration Coordinator: JESSY OWENS ([id number])[facility] ([facility])[address] [place] [address] [place] LYMPHOCYTES (10*3/UL) IN BLOOD-CELLAVISION 0.9 10*3/uL Low 1.0-4.3 [facility] Comment on above: Performed By: #### L [id number], [id number] ####Registration Coordinator: JESSY OWENS ([id number])[facility] ([facility])[address] [place] [address] LYMPHOCYTES TOTAL PER COUNTED LEUKOCYTES BY MANUAL COUNT 11 Normal [facility] Comment on above: Performed By: #### L [id number], [id number] ####Registration Coordinator: JESSY OWENS ([id number])[facility] ([facility])[address] [place] [address] LYMPHOCYTES/100 LEUKOCYTES IN BLOOD-CELLAVISION 11 % Low 15-45 [facility] Comment on above: Performed By: #### L [id number], [id number] ####Registration Coordinator: JESSY OWENS ([id number])[facility] ([facility])[address] [place] [address] METAMYELOCYTES TOTAL PER COUNTED LEUKOCYTES BY MANUAL COUNT Normal [facility] Comment on above: Performed By: #### L [id number], [id number] ####Registration Coordinator: JESSY OWENS ([phone])[facility] ([facility])[address] [place] [address] [place] MONOCYTES (10*3/UL) IN BLOOD-CELLAVISION 0.2 10*3/uL Normal 0.0-0.9 [facility] Comment on above: Performed By: #### L [id number], [id number] ####Registration Coordinator: JESSY OWENS ([phone])[facility] ([facility])[address] [place] [address] [place] MONOCYTES TOTAL PER COUNTED LEUKOCYTES BY MANUAL COUNT 2 [facility] Comment on above: Performed By: #### L [id number], [id number] ####Registration Coordinator: JESSY OWENS ([id number])[facility] ([facility])[address] [place] [address] [place] MONOCYTES/100 LEUKOCYTES IN BLOOD-GIRMA 2 % Low 5-13 [facility] Comment on above: Performed By: #### L [id number], [id number] ####Registration Coordinator: JESSY OWENS ([id number])[facility] ([facility])[address] [place] [address] [place] MYELOCYTES COUNTED BY MANUAL COUNT [facility] Comment on above: Performed By: #### L [id number], [id number] ####Registration Coordinator: JESSY OWENS ([id number])[facility] ([facility])[address] [place] [address] [place] NEUTROPHILS TOTAL PER COUNTED LEUKOCYTES BY MANUAL COUNT 87 [facility] Comment on above: Performed By: #### L [id number], [id number] ####Registration Coordinator: JESSY OWENS ([id number])[facility] ([facility])[address] [place] [address] [place] NUCLEATED ERYTHROCYTES/100 LEUKOCTES IN BLOOD-CELLAVISION 2 % Normal 0-2 [facility] Comment on above: Performed By: #### L [id number], [id number] ####Registration Coordinator: JESSY OWENS ([id number])[facility] ([facility])[address] [place] [address] [place] PROMYELOCYTES TOTAL PER COUNTED LEUKOCYTES BY MANUAL COUNT [facility] Comment on above: Performed By: #### L [id number], [id number] ####Registration Coordinator: JESSY OWENS ([id number])[facility] ([facility])[address] [place] [address] [place] RBC MORPHOLOGY IN BLOOD Normal Normal [facility] Comment on above: Performed By: #### L [id number], [id number] ####Registration Coordinator: JESSY OWENS ([id number])[facility] ([facility])[address] [place] [address] [place] SEGMENTED NEUTROPHILS (10*3/UL) IN BLOOD-CELLAVISION 7.3 10*3/uL Normal 1.8-7.5 [facility] Comment on above: Performed By: #### L [id number], [id number] ####Registration Coordinator: JESSY OWENS ([id number])[facility] ([facility])[address] [place] [address] SEGMENTED NEUTROPHILS/100 LEUKOCYTES-CE 87 % High 38-82 [facility] Comment on above: Performed By: #### L [id number], [id number] ####Registration Coordinator: JESSY OWENS ([id number])[facility] ([facility])[address] [place] [address] UNCLASSIFIED CELLS TOTAL PER COUNTED LEUKOCYTES BY MANUAL COUNT Normal [facility] Comment on above: Performed By: #### L [id number], [id number] ####Registration Coordinator: JESSY OWENS ([id number])[facility] ([facility])[address] [place] [address] VARIANT LYMPHOCYTES TOTAL PER COUNTED LEUKOCYTES BY MANUAL COUNT Normal [facility] Comment on above: Performed By: #### L [id number], [id number] ####Registration Coordinator: JESSY OWENS ([id number])[facility])[address] [place] [address] Magnesium [Mass/Vol]on 11-27 [facility] No Panel Informationon 11-27 P [place] -16 degrees [facility] [place] Interval 252 ms [facility] QRS [place] -7 degrees [facility] QRSD Interval 121 ms [facility] QT Interval 485 ms [facility] QTC Interval 507 ms [facility] T Wave [place] 87 degrees [facility] CV EPIPHANY [facility] CV EPIPHANY [facility] Blood Expiration Date [id number] [facility] Crossmatch interpretation COMP [facility] Dispense Status Transfused [facility] Product Blood Type 6200 [facility] [employer] PRODUCT CODE [id number] [facility] Unit ABO A [facility] Unit Number [id number] [facility] RH Positive [facility] Unit Volume 300 mL [facility] Interpretation and review of laboratory results Abnormal [facility] Interpretation and review of laboratory results Abnormal [facility] Lymphocytes Manual 11 [facility] Monocytes Manual 2 [facility] Neutrophils Manual 87 [facility] No Panel InformationOrdered By: Saloni Miguel on 11-27-2024 P [place] 0 degrees [employer] Work Phone: [place] Interval 0 ms [employer] [facility] Work Phone: QRS [place] -20 degrees [employer] Work Phone: QRSD Interval 118 ms [employer] Work Phone: QT Interval 479 ms [employer] Work Phone: QTC Interval 497 ms [employer] Work Phone: T Wave [place] 168 degrees [employer] Work Phone: [employer] Work Phone: PHOSPHORUSon 11-27-2024 Phosphate [Mass/Vol] mg/dL Low 2.3-4.7 [facility] Comment on above: Performed By: #### L [id number], [id number], [id number] ####Registration Coordinator: JESSY OWENS ([phone])[facility])[address] [place] [address] PROCALCITONIN TESTon 025 PROCALCITONIN 0.12 ng/mL High <0.07 [facility] Comment on above: Result Comment: TANA [facility] COMMENTS:PCT <0.50 = Low risk of severe sepsis and/or septic shock.PCT >2.00 = High risk of severe sepsis and/or septic shock. Performed By: #### L [id number], [id number] ####Registration Coordinator: JESSY OWENS ([id number])[facility] ([facility])[address] [place] [address] [place] Phosphate [Moles/Vol]on 11-17 Phosphate [Mass/Vol] mg/dL Low 2.3 - 4 .7 mg/dL [facility] [employer] Procalcitonin [Mass/Vol]on 0 11-27-2024 Interpretation and review of laboratory results Abnormal [facility] Progress Noteon 11-27-[address] [facility] Progress Note [facility] Progress Note Normal [facility] Vital signson 11-27-2024 Heart rate 59 /min bpm [facility] Vital signsOrdered By: Saloni Miguel on 11-27-2024 Heart rate 65 /min bpm [facility] [employer] Work Phone: 30on 11-26-2024 30 Normal [facility] BASIC METABOLIC PANELon 11-17 Anion gap [Moles/Vol] 12 mmol/L Normal 3-13 [facility] Comment on above: Performed By: #### L [id number] ####Registration Coordinator: JESSY OWENS ([id number])[facility])[address] [place] [address] Calcium [Mass/Vol] 8.4 mg/dL Low 8.8-10.0 [facility] Comment on above: Performed By: #### L AB15 ####Registration Coordinator: JESSY OWENS ([id number])[facility] ([facility])[address] [place] [address] Chloride [Moles/Vol] 108 mmol/L High 98-107 [facility] Comment on above: Performed By: #### L AB15 ####Registration Coordinator: JESSY OWENS ([id number])[facility])[address] [place] [address] CO2 [Moles/Vol] 19 mmol/L Low 23-31 [facility] Comment on above: Performed By: #### L AB15 ####Registration Coordinator: JESSY OWENS ([id number])[facility])[address] [place] [address] Creatinine [Mass/Vol] 0.59 mg/dL Normal 0.57-1.11 [facility] Comment on above: Performed By: #### L AB15 ####Registration Coordinator: JESSY OWENS ([id number])[facility])[address] [place] [address] GLOMERULAR FILTRATION RATE ML/MIN/1.73 SQ M.PREDICTED >90.0 Normal >60.0 [facility] Comment on above: Result Comment: Calc ulation based on the Chronic Kidney Disease Epidemiology Collaboration (CKD-EPI) equation refit without adjustment for race Performed By: #### L AB15 ####Registration Coordinator: JESSY OWENS ([id number])[facility])[address] [place] [address] Glucose [Mass/Vol] 188 mg/dL High 82-115 [facility] Comment on above: Performed By: #### L AB15 ####Registration Coordinator: JESSY OWENS ([id number])[address] Potassium [Moles/Vol] 3.3 mmol/L Low 3.5-5.1 [facility] Comment on above: Result Comment: [facility] potassium values may be up to 0.5 mmol/L lower than serum values. Performed By: #### L AB15 ####Registration Coordinator: JESSY OWENS ([id number])[facility])[address] [place] [address] Sodium [Moles/Vol] 139 mmol/L Normal 136-145 [facility] Comment on above: Performed By: #### L AB15 ####Registration Coordinator: JESSY OWENS ([id number])[address] Urea nitrogen [Mass/Vol] 23 mg/dL Normal 9-23 [facility] Comment on above: Performed By: #### L AB15 ####Registration Coordinator: JESSY OWENS ([id number])[address] Anion gap [Moles/Vol] 9 mmol/L Normal 3-13 [facility] Comment on above: Performed By: #### L AB15 ####Registration Coordinator: JESSY [id number])[facility])[address] [place] [address] Calcium [Mass/Vol] 8.3 mg/dL Low 8.8-10.0 [facility] Comment on above: Performed By: #### L AB15 ####Registration Coordinator: JESSY OWENS ([id number])[facility] [place] [address] [place] Chloride [Moles/Vol] 109 mmol/L High 98-107 [facility] Comment on above: Performed By: #### L AB15 ####Registration Coordinator: JESSY OWENS ([id number])[facility] ([facility])[address] [place] [address] CO2 [Moles/Vol] 18 mmol/L Low 23-31 [facility] Comment on above: Performed By: #### L AB15 ####Registration Coordinator: JESSY OWENS ([id number])[facility] ([facility])[address] [place] [address] Creatinine [Mass/Vol] 0.65 mg/dL Normal 0.57-1.11 [facility] Comment on above: Performed By: #### L AB15 ####Registration Coordinator: JESSY OWENS ([id number])[facility] ([facility])[address] [place] [address] GLOMERULAR FILTRATION RATE ML/MIN/1.73 SQ M.PREDICTED >90.0 Normal >60.0 [facility] Comment on above: Result Comment: Calc ulation based on the Chronic Kidney Disease Epidemiology Collaboration (CKD-EPI) equation refit without adjustment for race Performed By: #### L AB15 ####Registration Coordinator: JESSY OWENS ([id number])[facility] ([facility])[address] [place] [address] [place] Glucose [Mass/Vol] 180 mg/dL High 82-115 [facility] Comment on above: Performed By: #### L AB15 ####Registration Coordinator: JESSY OWENS ([id number])[facility] ([facility])[address] [place] [address] [place] Potassium [Moles/Vol] 3.2 mmol/L Low 3.5-5.1 [facility] Comment on above: Result Comment: [facility] potassium values may be up to 0.5 mmol/L lower than serum values. Performed By: #### L AB15 ####Registration Coordinator: JESSY OWENS ([id number])[facility] [place] [address] Sodium [Moles/Vol] 136 mmol/L Normal 136-145 [facility] Comment on above: Performed By: #### L AB15 ####Registration Coordinator: JESSY OWENS ([id number])[facility] ([facility])[address] [place] [address] Urea nitrogen [Mass/Vol] 27 mg/dL High 9-23 [facility] Comment on above: Performed By: #### L AB15 ####Registration Coordinator: JESSY OWENS ([id number])[facility] ([facility])[address] [place] [address] Anion gap [Moles/Vol] 11 mmol/L Normal 3-13 [facility] Comment on above: Performed By: #### L AB15 ####Registration Coordinator: JESSY OWENS ([id number])[facility] ([facility])[address] [place] [address] Calcium [Mass/Vol] 8.2 mg/dL Low 8.8-10.0 [facility] Comment on above: Performed By: #### L AB15 ####Registration Coordinator: JESSY OWENS ([id number])[facility] ([facility])[address] [place] [address] Chloride [Moles/Vol] 111 mmol/L High 98-107 [facility] Comment on above: Performed By: #### L AB15 ####Registration Coordinator: JESSY OWENS ([id number])[facility] ([facility])[address] [place] [address] CO2 [Moles/Vol] 15 mmol/L Low 23-31 [facility] Comment on above: Performed By: #### L AB15 ####Registration Coordinator: JESSY OWENS ([id number])[facility] ([facility])[address] [place] [address] Creatinine [Mass/Vol] 0.63 mg/dL Normal 0.57-1.11 [facility] Comment on above: Performed By: #### L AB15 ####Registration Coordinator: JESSY OWENS ([id number])[facility])[address] [place] [address] [place] GLOMERULAR FILTRATION RATE ML/MIN/1.73 SQ M.PREDICTED >90.0 Normal >60.0 [facility] Comment on above: Result Comment: Calc ulation based on the Chronic Kidney Disease Epidemiology Collaboration (CKD-EPI) equation refit without adjustment for race Performed By: #### L AB15 ####Registration Coordinator: JESSY OWENS ([id number])[facility] ([facility])[address] [place] [address] [place] Glucose [Mass/Vol] 180 mg/dL High 82-115 [facility] Comment on above: Performed By: #### L AB15 ####Registration Coordinator: JESSY OWENS ([id number])[facility])[address] [place] [address] [place] Potassium [Moles/Vol] 2.9 mmol/L Low 3.5-5.1 [facility] Comment on above: Result Comment: [facility] potassium values may be up to 0.5 mmol/L lower than serum values. Performed By: #### L AB15 ####Registration Coordinator: JESSY OWENS ([id number])[facility])[address] [place] [address] [place] Sodium [Moles/Vol] 137 mmol/L Normal 136-145 [facility] Comment on above: Performed By: #### L AB15 ####Registration Coordinator: JESSY OWENS ([id number])[facility])[address] [place] [address] [place] Urea nitrogen [Mass/Vol] 28 mg/dL High 9-23 [facility] Comment on above: Performed By: #### L AB15 ####Registration Coordinator: JESSY OWENS ([id number])[facility] [place] [address] Anion gap [Moles/Vol] 11 mmol/L Normal 3-13 [facility] Comment on above: Performed By: #### L AB15 ####Registration Coordinator: JESSY OWENS ([id number])[facility] [place] [address] Calcium [Mass/Vol] 8.2 mg/dL Low 8.8-10.0 [facility] Comment on above: Performed By: #### L AB15 ####Registration Coordinator: JESSY OWENS ([id number])[facility] [place] [address] Chloride [Moles/Vol] 112 mmol/L High 98-107 [facility] Comment on above: Performed By: #### L AB15 ####Registration Coordinator: JESSY OWENS ([id number])[facility] [place] [address] CO2 [Moles/Vol] 15 mmol/L Low 23-31 [facility] Comment on above: Performed By: #### L AB15 ####Registration Coordinator: JESSY OWENS ([id number])[facility] [place] [address] Creatinine [Mass/Vol] 0.72 mg/dL Normal 0.57-1.11 [facility] Comment on above: Performed By: #### L AB15 ####Registration Coordinator: JESSY OWENS ([id number])[facility] [place] [address] GLOMERULAR FILTRATION RATE ML/MIN/1.73 SQ M.PREDICTED >90.0 Normal >60.0 [facility] Comment on above: Result Comment: Calc ulation based on the Chronic Kidney Disease Epidemiology Collaboration (CKD-EPI) equation refit without adjustment for race Performed By: #### L AB15 ####Registration Coordinator: JESSY OWENS ([id number])[facility])[address] [place] [address] Glucose [Mass/Vol] 171 mg/dL High 82-115 [facility] Comment on above: Performed By: #### L AB15 ####Registration Coordinator: JESSY OWENS ([id number])[facility])[address] [place] [address] Potassium [Moles/Vol] 3.0 mmol/L Low 3.5-5.1 [facility] Comment on above: Result Comment: [facility] potassium values may be up to 0.5 mmol/L lower than serum values. Performed By: #### L AB15 ####Registration Coordinator: JESSY OWENS ([id number])[facility])[address] [place] [address] Sodium [Moles/Vol] 138 mmol/L Normal 136-145 [facility] Comment on above: Performed By: #### L AB15 ####Registration Coordinator: JESSY OWENS ([id number])[facility])[address] [place] [address] Urea nitrogen [Mass/Vol] 40 mg/dL High 9-23 [facility] Comment on above: Performed By: #### L AB15 ####Registration Coordinator: JESSY OWENS ([id number])[facility])[address] [place] [address] Bacteria identified Cx Nom ( Bld)Ordered By: Simran Vasquez on 11-26-2024 Interpretation and review of laboratory results Abnormal [facility] Basic metabolic 1998 panelon 11-26-2024 Anion gap [Moles/Vol] 9 mmol/L 3 - 13 mmol/L [facility] Calcium [Mass/Vol] 8.3 mg/dL Low 8.8 - 10. 0 mg/dL [facility] Chloride [Moles/Vol] 109 mmol/L High 98 - 10 7 mmol/L [facility] CO2 [Moles/Vol] 18 mmol/L Low 23 - 31 mmol/L [facility] Creatinine [Mass/Vol] 0.65 mg/dL 0.57 - 1.11 mg/dL [facility] GFR/1.73 sq M.predicted (S/P/Bld) [Vol rate/Area] - PINF [facility] Glucose [Mass/Vol] 180 mg/dL High 82 - 115 mg/dL [facility] Interpretation and review of laboratory results Abnormal [facility] Potassium [Moles/Vol] 3.2 mmol/L Low 3.5 - 5.1 mmol/L [facility] Sodium [Moles/Vol] 136 mmol/L 136 - 145 mmol/L [facility] Urea nitrogen [Mass/Vol] 27 mg/dL High 9 - 23 mg/d L [facility] Anion gap [Moles/Vol] 11 mmol/L 3 - 13 mmol/L [facility] Calcium [Mass/Vol] 8.2 mg/dL Low 8.8 - 10. 0 mg/dL [facility] Chloride [Moles/Vol] 111 mmol/L High 98 - 10 7 mmol/L [facility] CO2 [Moles/Vol] 15 mmol/L Low 23 - 31 mmol/L [facility] Creatinine [Mass/Vol] 0.63 mg/dL 0.57 - 1.11 mg/dL [facility] GFR/1.73 sq M.predicted (S/P/Bld) [Vol rate/Area] - PINF [facility] Glucose [Mass/Vol] 180 mg/dL High 82 - 115 mg/dL [facility] Interpretation and review of laboratory results Abnormal [facility] Potassium [Moles/Vol] 2.9 mmol/L Low 3.5 - 5.1 mmol/L [facility] Sodium [Moles/Vol] 137 mmol/L 136 - 145 mmol/L [facility] Urea nitrogen [Mass/Vol] 28 mg/dL High 9 - 23 mg/d L [facility] Anion gap [Moles/Vol] 11 mmol/L 3 - 13 mmol/L [facility] Calcium [Mass/Vol] 8.2 mg/dL Low 8.8 - 10. 0 mg/dL [facility] Chloride [Moles/Vol] 112 mmol/L High 98 - 10 7 mmol/L [facility] CO2 [Moles/Vol] 15 mmol/L Low 23 - 31 mmol/L [facility] Creatinine [Mass/Vol] 0.72 mg/dL 0.57 - 1.11 mg/dL [facility] GFR/1.73 sq M.predicted (S/P/Bld) [Vol rate/Area] - PINF [facility] Glucose [Mass/Vol] 171 mg/dL High 82 - 115 mg/dL [facility] Interpretation and review of laboratory results Abnormal [facility] Potassium [Moles/Vol] 3 mmol/L Low 3.5 - 5.1 mmol/L [facility] Sodium [Moles/Vol] 138 mmol/L 136 - 145 mmol/L [facility] Urea nitrogen [Mass/Vol] 40 mg/dL High 9 - 23 mg/d L [facility] CALCIUM, IONIZEDon CALCIUM IONIZED 4.40 mg/dL Normal 4.30-5.20 [facility] Comment on above: Performed By: #### L AB54 ####Registration Coordinator: JESSY OWENS ([id number])[facility] ([facility])[address] [place] [address] PH, IONIZED CALCIUM 7.47 High 7.31-7.46 [facility] Comment on above: Performed By: #### L AB54 ####Registration Coordinator: JESSY OWENS ([phone])[facility] ([facility])[address] [place] [address] CBC W Auto Differential pane l (Bld)on 11-26-2024 Basophils (Bld) [#/Vol] 0 10*3/uL 0.0 - 0.2 10*3/uL [facility] Basophils/100 WBC (Bld) 0.1 % 0.0 - 2.0 % [facility] Eosinophils (Bld) [#/Vol] 0 10*3/uL 0.0 - 0.5 10*3/uL [facility] Eosinophils/100 WBC (Bld) 0 % 0.0 - 6.0 % [facility] Erythrocyte distribution width (RBC) [Ratio] 13.3 % 11.5 - 15.0 % [facility] Hematocrit (Bld) [Volume fraction] 23.9 % Low 35.0 - 47.0 % [facility] Hemoglobin (Bld) [Mass/Vol] 8.1 g/dL Low 11.7 - 16.0 g/dL [facility] Immature granulocytes (Bld) [#/Vol] 0.2 10*3/uL High NINF - 0.1 10*3/uL [facility] Conferize Immature granulocytes/100 WBC (Bld) 2.7 % High 0.0 - 2.0 % [facility] Interpretation and review of laboratory results Abnormal [facility] Lymphocytes (Bld) [#/Vol] 0.9 10*3/uL Low 1.0 - 4.3 10*3/uL [facility] Lymphocytes/100 WBC (Bld) 9.4 % Low 15.0 - 45.0 % [facility] MCH (RBC) [Entitic mass] 34.3 pg High 26. 0 - 34.0 pg [facility] MCHC (RBC) [Mass/Vol] 33.9 % 30.5 - 36.0 % [facility] MCV (RBC) [Entitic vol] 101.3 fL High 77.0 - 99.0 fL [facility] Monocytes (Bld) [#/Vol] 0.2 10*3/uL 0.0 - 0.9 10*3/uL [facility] Monocytes/100 WBC (Bld) 2.2 % Low 5.0 - 13.0 % [facility] Neutrophils (Bld) [#/Vol] 7.8 10*3/uL High 1.8 - 7.5 10*3/uL [facility] Neutrophils/100 WBC (Bld) 85.6 % High 38.0 - 82.0 % [facility] Nucleated RBC/100 WBC (Bld) [Ratio] 0.8 % [facility] Platelet mean volume (Bld) [Entitic vol] 10.5 fL 9.0 - 12.7 fL [facility] Platelets (Bld) [#/Vol] 129 10*3/uL Low 140 - 440 10*3/uL [facility] RBC (Bld) [#/Vol] 2.36 10*6/uL Low 3.80 - 5.2 0 10*6/uL [facility] WBC (Bld) [#/Vol] 9.1 10*3/uL 3.6 - 10.7 10*3/uL [facility] CBC WITH AUTO DIFFERENTIALon 11-26-2024 Basophils (Bld) [#/Vol] 0.0 10*3/uL Normal 0.0-0.2 [facility] Comment on above: Performed By: #### L AB296, [id number] ####Registration Coordinator: JESSY OWENS ([id number])[facility])[address] [place] [address] Basophils/100 WBC (Bld) 0.1 % Normal 0.0-2.0 [facility] Comment on above: Performed By: #### L AB296, [id number] ####Registration Coordinator: JESSY OWENS ([id number])[facility])[address] [place] [address] Eosinophils (Bld) [#/Vol] 0.0 10*3/uL Normal 0.0-0.5 [facility] Comment on above: Performed By: #### L AB296, [id number] ####Registration Coordinator: JESSY OWENS ([id number])[facility])[address] [place] [address] Eosinophils/100 WBC (Bld) 0.0 % Normal 0.0-6.0 [facility] Comment on above: Performed By: #### Davidson AB296, [id number] ####Registration Coordinator: JESSY OWENS ([id number])[facility])[address] [place] [address] Erythrocyte distribution width (RBC) [Ratio] 13.3 % Normal 11.5-15.0 [facility] Comment on above: Performed By: #### L AB296, [id number] ####Registration Coordinator: JESSY OWENS ([id number])[facility])[address] [place] [address] Hematocrit (Bld) [Volume fraction] 23.9 % Low 35.0-47.0 [facility] Comment on above: Performed By: #### L AB296, [id number] ####Registration Coordinator: JESSY OWENS ([id number])[facility])[address] [place] [address] Hemoglobin (Bld) [Mass/Vol] 8.1 g/dL Low 11.7-16.0 [facility] Comment on above: Performed By: #### L AB296, [id number] ####Registration Coordinator: JESSY OWENS ([id number])[facility])[address] [place] [address] IMMATURE GRANS % 2.7 % High 0.0-2.0 [facility] Comment on above: Performed By: #### Davidson AB296, [id number] ####Registration Coordinator: JESSY OWENS ([id number])[facility])[address] [place] [address] IMMATURE GRANS ABSOLUTE 0.2 10*3/uL High <0.1 [facility] Comment on above: Performed By: #### Davidson AB296, [id number] ####Registration Coordinator: JESSY OWENS ([id number])[facility])[address] [place] [address] Lymphocytes (Bld) [#/Vol] 0.9 10*3/uL Low 1.0-4.3 [facility] Comment on above: Performed By: #### Davidson AB296, [id number] ####Registration Coordinator: JESSY OWENS ([id number])[facility])[address] [place] [address] Lymphocytes/100 WBC (Bld) 9.4 % Low 15.0-45.0 [facility] Comment on above: Performed By: #### Davidson AB296, [id number] ####Registration Coordinator: JESSY OWENS ([id number])[facility])[address] [place] [address] MCH (RBC) [Entitic mass] 34.3 pg High 26.0-34.0 [facility] Comment on above: Performed By: #### Davidson AB296, [id number] ####Registration Coordinator: JESSY OWENS ([id number])[facility])[address] [place] [address] MCHC 33.9 % Normal 30.5-36.0 [facility] Comment on above: Performed By: #### Davidson AB296, [id number] ####Registration Coordinator: JESSY OWENS ([id number])[facility] ([facility])[address] [place] [address] MCV (RBC) [Entitic vol] 101.3 fL High 77.0-99.0 [facility] Comment on above: Performed By: #### L AB296, [id number] ####Registration Coordinator: JESSY OWENS ([id number])[facility] ([facility])[address] [place] [address] Monocytes (Bld) [#/Vol] 0.2 10*3/uL Normal 0.0-0.9 [facility] Comment on above: Performed By: #### L AB296, [id number] ####Registration Coordinator: JESSY OWENS ([id number])[facility] ([facility])[address] [place] [address] Monocytes/100 WBC (Bld) 2.2 % Low 5.0-13.0 [facility] Comment on above: Performed By: #### Davidson AB296, [id number] ####Registration Coordinator: JESSY OWENS ([id number])[facility] ([facility])[address] [place] [address] NEUTROPHILS ABSOLUTE 7.8 10*3/uL High 1.8-7.5 [facility] Comment on above: Performed By: #### L AB296, [id number] ####Registration Coordinator: JESSY OWENS ([id number])[facility] ([facility])[address] [place] [address] Neutrophils/100 WBC (Bld) 85.6 % High 38.0-82.0 [facility] Comment on above: Performed By: #### L AB296, [id number] ####Registration Coordinator: JESSY OWENS ([id number])[facility])[address] [place] [address] [place] NRBC 0.8 /100 WBCs Normal 0.0-2.0 [facility] Comment on above: Performed By: #### L AB296, [id number] ####Registration Coordinator: JESSY OWENS ([id number])[facility] ([facility])[address] [place] [address] Platelet mean volume (Bld) [Entitic vol] 10.5 fL Normal 9.0-12.7 [facility] Comment on above: Performed By: #### L AB296, [id number] ####Registration Coordinator: JESSY OWENS ([id number])[facility] ([facility])[address] [place] [address] Platelets (Bld) [#/Vol] 129 10*3/uL Low 140-440 [facility] Comment on above: Performed By: #### L AB296, [id number] ####Registration Coordinator: JESSY OWENS ([id number])[facility] ([facility])[address] [place] [address] RBC (Bld) [#/Vol] 2.36 10*6/uL Low 3.80-5.20 [facility] Comment on above: Performed By: #### L AB296, [id number] ####Registration Coordinator: JESSY OWENS ([id number])[facility] ([facility])[address] [place] [address] WBC (Bld) [#/Vol] 9.1 10*3/uL Normal 3.6-10.7 [facility] Comment on above: Performed By: #### L AB296, [id number] ####Registration Coordinator: JESSY OWENS ([id number])[facility] ([facility])[address] [place] [address] COMPREHENSIVE METABOLIC PANE Neo 11-26-2024 Albumin [Mass/Vol] 2.5 g/dL Low 3.4-4.8 [facility] Comment on above: Performed By: #### L AB67, LAB69, OAH261, LAB17, PLI922, LAB68 ####Registration Coordinator: JESSY OWENS ([id number])[facility])[address] [place] [address] ALP [Catalytic activity/Vol] 91 U/L Normal 40-150 [facility] Comment on above: Performed By: #### L AB67, LAB69, UYF785, LAB17, JAQ315, LAB68 ####Registration Coordinator: JESSY OWENS ([id number])[facility])[address] [place] [address] ALT [Catalytic activity/Vol] 9 U/L Normal <30 [facility] Comment on above: Performed By: #### L AB67, LAB69, ZAO818, LAB17, SCC000, LAB68 ####Registration Coordinator: JESSY OWENS ([id number])[facility] ([facility])[address] [place] [address] Anion gap [Moles/Vol] 13 mmol/L Normal 3-13 [facility] Comment on above: Performed By: #### L AB67, LAB69, GLJ455, LAB17, ZPT959, LAB68 ####Registration Coordinator: JESSY OWENS ([id number])[facility])[address] [place] [address] AST [Catalytic activity/Vol] 21 U/L Normal <34 [facility] Comment on above: Performed By: #### L AB67, LAB69, YEB428, LAB17, XSJ724, LAB68 ####Registration Coordinator: JESSY OWENS ([id number])[facility])[address] [place] [address] Bilirubin [Mass/Vol] 1.3 mg/dL High <1.2 [facility] Comment on above: Performed By: #### L AB67, LAB69, AVQ541, LAB17, VCW024, LAB68 ####Registration Coordinator: JESSY OWENS ([id number])[facility])[address] [place] [address] Calcium [Mass/Vol] 8.3 mg/dL Low 8.8-10.0 [facility] Comment on above: Performed By: #### L AB67, LAB69, OZY747, LAB17, EJN153, LAB68 ####Registration Coordinator: JESSY OWENS ([id number])[facility])[address] [place] [address] Chloride [Moles/Vol] 109 mmol/L High 98-107 [facility] Comment on above: Performed By: #### L AB67, LAB69, AWL642, LAB17, WYB704, LAB68 ####Registration Coordinator: JESSY OWENS ([id number])[facility] ([facility])[address] [place] [address] CO2 [Moles/Vol] 16 mmol/L Low 23-31 [facility] Comment on above: Performed By: #### L AB67, LAB69, TED470, LAB17, VNO290, LAB68 ####Registration Coordinator: JESSY OWENS ([id number])[facility])[address] [place] [address] Creatinine [Mass/Vol] 0.67 mg/dL Normal 0.57-1.11 [facility] Comment on above: Performed By: #### L AB67, LAB69, SUI306, LAB17, OWG155, LAB68 ####Registration Coordinator: JESSY OWENS ([id number])[facility] ([facility])[address] [place] [address] GLOMERULAR FILTRATION RATE ML/MIN/1.73 SQ M.PREDICTED >90.0 Normal >60.0 [facility] Comment on above: Result Comment: Calc ulation based on the Chronic Kidney Disease Epidemiology Collaboration (CKD-EPI) equation refit without adjustment for race Performed By: #### L AB67, LAB69, COU149, LAB17, FVF878, LAB68 ####Registration Coordinator: JESSY OWENS ([id number])[facility] ([facility])[address] [place] [address] Glucose [Mass/Vol] 165 mg/dL High 82-115 [facility] Comment on above: Performed By: #### L AB67, LAB69, ZZO628, LAB17, ISQ777, LAB68 ####Registration Coordinator: JESSY OWENS ([id number])[facility])[address] [place] [address] Potassium [Moles/Vol] 2.4 mmol/L Critically low 3.5-5.1 [facility] Comment on above: Result Comment: Plas ma potassium values may be up to 0.5 mmol/L lower than serum values. Performed By: #### L AB67, LAB69, KRB919, LAB17, YTZ856, LAB68 ####Registration Coordinator: JESSY OWENS ([id number])[facility])[address] [place] [address] Protein [Mass/Vol] 5.7 g/dL Low 6.4-8.3 [facility] Comment on above: Performed By: #### L AB67, LAB69, RIB956, LAB17, HQK974, LAB68 ####Registration Coordinator: JESSY OWENS ([id number])[facility])[address] [place] [address] Sodium [Moles/Vol] 138 mmol/L Normal 136-145 [facility] Comment on above: Performed By: #### L AB67, LAB69, BYG944, LAB17, TUO625, LAB68 ####Registration Coordinator: JESSY OWENS ([id number])[facility] ([facility])[address] [place] [address] Urea nitrogen [Mass/Vol] 32 mg/dL High 9-23 [facility] Comment on above: Performed By: #### L AB67, LAB69, NZV363, LAB17, JOZ564, LAB68 ####Registration Coordinator: JESSY OWENS ([id number])[address] Calcium.ionized [Moles/Vol]O rdered By: Tana Ruelas on 11-26-2024 Calcium.ionized (Bld) [Moles/Vol] 4.4 mg/dL 4.30 - 5.20 mg/dL [facility] Interpretation and review of laboratory results Abnormal [facility] PH, IONIZED CALCIUM 7.47 High 7.31 - 7.46 [facility] Cobalamin (Vitamin B12) [Mas s/Vol]on 11-26-2024 Interpretation and review of laboratory results Normal [facility] Comprehensive metabolic 1998 panelon 11-26-2024 Albumin [Mass/Vol] 2.5 g/dL Low 3.4 - 4.8 g/dL [facility] ALP [Catalytic activity/Vol] 91 U/L 40 - 150 U/L [facility] ALT [Catalytic activity/Vol] 9 U/L NINF - 30 U/L [facility] Anion gap [Moles/Vol] 13 mmol/L 3 - 13 mmol/L [facility] AST [Catalytic activity/Vol] 21 U/L NINF - 34 U/L [facility] Bilirubin [Mass/Vol] 1.3 mg/dL High NINF - 1.2 mg/dL [facility] Calcium [Mass/Vol] 8.3 mg/dL Low 8.8 - 10. 0 mg/dL [facility] Chloride [Moles/Vol] 109 mmol/L High 98 - 10 7 mmol/L [facility] CO2 [Moles/Vol] 16 mmol/L Low 23 - 31 mmol/L [facility] Creatinine [Mass/Vol] 0.67 mg/dL 0.57 - 1.11 mg/dL [facility] GFR/1.73 sq M.predicted (S/P/Bld) [Vol rate/Area] - PINF [facility] Glucose [Mass/Vol] 165 mg/dL High 82 - 115 mg/dL [facility] Interpretation and review of laboratory results Abnormal [facility] Potassium [Moles/Vol] 2.4 mmol/L Critically low 3.5 - 5.1 mmol/L [facility] Protein [Mass/Vol] 5.7 g/dL Low 6.4 - 8.3 g/dL [facility] Sodium [Moles/Vol] 138 mmol/L 136 - 145 mmol/L [facility] Urea nitrogen [Mass/Vol] 32 mg/dL High 9 - 23 mg/d L [facility] Consulton 11-26-2024 Consult Normal [facility] FERRITINon 11-26-2024 Ferritin [Mass/Vol] 647 ng/mL High 5-204 [facility] Comment on above: Result Comment: TANA R COMMENTS:Ferritin levels below 10 ng/mL have been reported as indicative of iron deficiency anemia. Performed By: #### L AB67, LAB69, GRB070, LAB17, PAT694, LAB68 ####Registration Coordinator: JESSY OWENS ([id number])[facility] ([facility])[address] [place] [address] FOLATEon 11-26-2024 FOLATE RESULT 17.1 ng/mL Normal 7.0-31.4 [facility] Comment on above: Performed By: #### L AB67, LAB69, CKR801, LAB17, UCS433, LAB68 ####Registration Coordinator: JESSY OWENS ([id number])[facility] ([facility])[address] [place] [address] [place] Ferritin [Mass/Vol]on 2024 Interpretation and review of laboratory results Abnormal [facility] Folate [Mass/Vol]on 11-27-19 Interpretation and review of laboratory results Normal [facility] IRON AND TIBCon 11-26-2024 IRON BINDING CAPACITY 188 ug/dL Low 250-450 [facility] Comment on above: Performed By: #### L AB129, [id number] ####Registration Coordinator: JESSY OWENS ([id number])[facility] ([facility])[address] [place] [address] IRON SATURATION 35.6 % Normal 20.0-50.0 [facility] Comment on above: Performed By: #### L AB129, [id number] ####Registration Coordinator: JESSY OWENS ([id number])[facility] ([facility])[address] [place] [address] IRON, TOTAL 67 ug/dL Normal 50-170 [facility] Comment on above: Performed By: #### L AB129, [id number] ####Registration Coordinator: JESSY OWENS ([id number])[facility] ([facility])[address] [place] [address] [place] Iron and Iron binding capaci ty panelon 11-26-2024 Interpretation and review of laboratory results Abnormal [facility] Iron [Mass/Vol] 67 ug/dL 50 - 170 ug/dL [facility] Iron binding capacity [Mass/Vol] 188 ug/dL Low 250 - 450 ug/dL [facility] Iron saturation [Mass fraction] 35.6 % 20.0 - 50.0 % [facility] - Chemistry and C hemistry - challengeon 11-26-2024 Folate [Mass/Vol] 17.1 ng/mL 7.0 - 31.4 ng/mL [facility] Cobalamin (Vitamin B12) [Mass/Vol] 317 pg/mL 213 - 816 pg/mL [facility] TSH Qn 0.57 m[IU]/L [facility] Ferritin [Mass/Vol] 647 ng/mL High 5 - 204 ng/mL [facility] Magnesium [Mass/Vol] 1.8 mg/dL 1.6 - 2 .6 mg/dL [facility] - Drug toxicology on 11-26-2024 Vancomycin trough [Mass/Vol] 17.6 ug/mL [facility] - Microbiology an d Antimicrobial susceptibilityOrdered By: Simran Vasquez on 11-26-2024 Bacteria identified Cx Nom (Bld) Staphylococcus epidermidis Critically abnormal [facility] MAGNESIUMon 11-26-2024 Magnesium [Mass/Vol] 1.8 mg/dL Normal 1.6-2.6 [facility] Comment on above: Result Comment: TANA Wick COMMENTS:Higher values can be expected in females during menses. Performed By: #### L AB67, LAB69, GKQ852, LAB17, LED037, LAB68 ####Registration Coordinator: JESSY OWENS ([id number])[facility])[address] [place] [address] Magnesium [Mass/Vol]on 11-26 [facility] No Panel Informationon 11-26 Interpretation and review of laboratory results Normal [facility] PHOSPHORUSon 11-26-2024 Phosphate [Mass/Vol] 2.3 mg/dL Normal 2.3-4.7 [facility] Comment on above: Performed By: #### L AB67, LAB69, SLA515, LAB17, XAX552, LAB68 ####Registration Coordinator: JESSY OWENS ([id number])[facility])[address] [place] [address] [place] Phosphate [Moles/Vol]on 11-17 Phosphate [Mass/Vol] 2.3 mg/dL 2.3 - 4 .7 mg/dL [facility] Progress Noteon 11-26-[address] [facility] Progress Note Normal [facility] Progress Note Normal [facility] RETICULOCYTESon 11-26-2024 Reticulocytes/100 RBC (Bld) 2.37 % Normal [facility] Comment on above: Result Comment: Newb orn < 5%Adults 0.4 - 2.0% Performed By: #### L AB296, [id number] ####Registration Coordinator: JESSY OWENS ([id number])[facility] ([facility])[address] [place] [address] Reticulocytes panel (Bld)Ord ered By: Angela Whitten on 11-26-2024 Reticulocytes/100 RBC (Bld) 2.37 % [facility] THYROID STIMULATING HORMONEo n 11-26-2024 THYROID STIMULATING HORMONE 0.57 uIU/mL Normal 0.35-4.94 [facility] Comment on above: Performed By: #### L AB129, [id number] ####Registration Coordinator: JESSY OWENS ([id number])[facility] ([facility])[address] [place] [address] TSH Qnon 11-26-2024 Interpretation and review of laboratory results Normal [facility] VANCOMYCIN, AUC TIMED DOSING on 11-26-2024 VANCOMYCIN, AUC 17.6 ug/mL Normal [facility] Comment on above: Result Comment: ORDE R COMMENTS:Please draw random level at least >2 hours after the end of the last vancomycin infusion, or 30-minutes before next infusion.Toxicity is seen at concentrations >80-100 ug/mLTherapeutic (Peak) range: 20-40Therapeutic (Trough) range: 5-10 Performed By: #### L AB39 ####Registration Coordinator: JESSY OWENS ([id number])[facility] ([facility])[address] [place] [address] VITAMIN B12on 11-26-2024 Cobalamin (Vitamin B12) [Mass/Vol] 317 pg/mL Normal 213-816 [facility] Comment on above: Performed By: #### L AB67, LAB69, ABT753, LAB17, IOO766, LAB68 ####Registration Coordinator: JESSY OWENS ([id number])[facility] ([facility])[address] [place] [address] [place] Vancomycin trough [Mass/Vol] on 11-26-2024 [facility] 30on 11-25-2024 30 Normal [facility] [id number] 11-25-2024 [id number] Normal [facility] BASIC METABOLIC PANELon Anion gap [Moles/Vol] 12 mmol/L Normal 3-13 [facility] Comment on above: Performed By: #### L AB15 ####Registration Coordinator: JESSY OWENS ([id number])[facility] [place] [address] Calcium [Mass/Vol] 8.0 mg/dL Low 8.8-10.0 [facility] Comment on above: Performed By: #### L AB15 ####Registration Coordinator: JESSY OWENS ([id number])[facility] [place] [address] [place] Chloride [Moles/Vol] 112 mmol/L High 98-107 [facility] Comment on above: Performed By: #### L AB15 ####Registration Coordinator: JESSY OWENS ([id number])[facility] ([facility])[address] [place] [address] CO2 [Moles/Vol] 14 mmol/L Low 23-31 [facility] Comment on above: Performed By: #### L AB15 ####Registration Coordinator: JESSY OWENS ([id number])[facility] ([facility])[address] [place] [address] Creatinine [Mass/Vol] 0.76 mg/dL Normal 0.57-1.11 [facility] Comment on above: Performed By: #### L AB15 ####Registration Coordinator: JESSY OWENS ([id number])[facility] ([facility])[address] [place] [address] GLOMERULAR FILTRATION RATE ML/MIN/1.73 SQ M.PREDICTED 88.7 mL/min/1.73m*2 Normal >60.0 [facility] Comment on above: Result Comment: Calc ulation based on the Chronic Kidney Disease Epidemiology Collaboration (CKD-EPI) equation refit without adjustment for race Performed By: #### L AB15 ####Registration Coordinator: JESSY OWENS ([id number])[facility] ([facility])[address] [place] [address] Glucose [Mass/Vol] 178 mg/dL High 82-115 [facility] Comment on above: Performed By: #### L AB15 ####Registration Coordinator: JESSY OWENS ([phone])[facility] ([facility])[address] [place] [address] Potassium [Moles/Vol] 3.2 mmol/L Low 3.5-5.1 [facility] Comment on above: Result Comment: [facility] potassium values may be up to 0.5 mmol/L lower than serum values. Performed By: #### L AB15 ####Registration Coordinator: JESSY OWENS ([id number])[facility] ([facility])33 [place] [address] Sodium [Moles/Vol] 138 mmol/L Normal 136-145 [facility] Comment on above: Performed By: #### L AB15 ####Registration Coordinator: JESSY OWENS ([phone])[facility])[address] [place] [address] Urea nitrogen [Mass/Vol] 45 mg/dL High 9-23 [facility] Comment on above: Performed By: #### L AB15 ####Registration Coordinator: JESSY OWENS ([id number])[facility])[address] [place] [address] Anion gap [Moles/Vol] 12 mmol/L Normal 3-13 [facility] Comment on above: Performed By: #### L AB15 ####Registration Coordinator: JESSY OWENS ([id number])[facility])[address] [place] [address] [place] Calcium [Mass/Vol] 7.9 mg/dL Low 8.8-10.0 [facility] Comment on above: Performed By: #### L AB15 ####Registration Coordinator: JESSY OWENS ([id number])[facility] ([facility])[address] [place] [address] Chloride [Moles/Vol] 111 mmol/L High 98-107 [facility] Comment on above: Performed By: #### L AB15 ####Registration Coordinator: JESSY OWENS ([id number])[facility] [place] [address] CO2 [Moles/Vol] 13 mmol/L Low 23-31 [facility] Comment on above: Performed By: #### L AB15 ####Registration Coordinator: JESSY OWENS ([id number])[facility])[address] [place] [address] Creatinine [Mass/Vol] 0.75 mg/dL Normal 0.57-1.11 [facility] Comment on above: Performed By: #### L AB15 ####Registration Coordinator: JESSY OWENS ([id number])[facility] ([facility])[address] [place] [address] GLOMERULAR FILTRATION RATE ML/MIN/1.73 SQ M.PREDICTED >90.0 Normal >60.0 [facility] Comment on above: Result Comment: Calc ulation based on the Chronic Kidney Disease Epidemiology Collaboration (CKD-EPI) equation refit without adjustment for race Performed By: #### L AB15 ####Registration Coordinator: JESSY OWENS ([id number])[facility] ([facility])[address] [place] [address] Glucose [Mass/Vol] 158 mg/dL High 82-115 [facility] Comment on above: Performed By: #### L AB15 ####Registration Coordinator: JESSY OWENS ([id number])[facility])[address] [place] [address] Potassium [Moles/Vol] 2.9 mmol/L Low 3.5-5.1 [facility] Comment on above: Result Comment: [facility] potassium values may be up to 0.5 mmol/L lower than serum values. Performed By: #### L AB15 ####Registration Coordinator: JESSY OWENS ([id number])[facility] [place] [address] Sodium [Moles/Vol] 136 mmol/L Normal 136-145 [facility] Comment on above: Performed By: #### L AB15 ####Registration Coordinator: JESSY OWENS ([phone])[facility] [place] [address] Urea nitrogen [Mass/Vol] 47 mg/dL High 9-23 [facility] Comment on above: Performed By: #### L AB15 ####Registration Coordinator: JESSY OWENS ([id number])[facility] ([facility])[address] [place] [address] Anion gap [Moles/Vol] 12 mmol/L Normal 3-13 [facility] Comment on above: Performed By: #### L AB15 ####Registration Coordinator: JESSY OWENS ([id number])[facility] [place] [address] Calcium [Mass/Vol] 7.8 mg/dL Low 8.8-10.0 [facility] Comment on above: Performed By: #### L AB15 ####Registration Coordinator: JESSY OWENS ([id number])[facility])[address] [place] [address] [place] Chloride [Moles/Vol] 107 mmol/L Normal 98-107 [facility] Comment on above: Performed By: #### L AB15 ####Registration Coordinator: JESSY OWENS ([id number])[facility])[address] [place] [address] [place] CO2 [Moles/Vol] 16 mmol/L Low 23-31 [facility] Comment on above: Performed By: #### L AB15 ####Registration Coordinator: JESSY OWENS ([id number])[facility])[address] [place] [address] [place] Creatinine [Mass/Vol] 0.79 mg/dL Normal 0.57-1.11 [facility] Comment on above: Performed By: #### L AB15 ####Registration Coordinator: JESSY OWENS ([id number])[facility])[address] [place] [address] GLOMERULAR FILTRATION RATE ML/MIN/1.73 SQ M.PREDICTED 84.7 mL/min/1.73m*2 Normal >60.0 [facility] Comment on above: Result Comment: Calc ulation based on the Chronic Kidney Disease Epidemiology Collaboration (CKD-EPI) equation refit without adjustment for race Performed By: #### L AB15 ####Registration Coordinator: JESSY OWENS ([id number])[facility])[address] [place] [address] Glucose [Mass/Vol] 120 mg/dL High 82-115 [facility] Comment on above: Performed By: #### L AB15 ####Registration Coordinator: JESSY OWENS ([id number])[facility])[address] [place] [address] Potassium [Moles/Vol] 2.6 mmol/L Critically low 3.5-5.1 [facility] Comment on above: Result Comment: [facility] potassium values may be up to 0.5 mmol/L lower than serum values. Performed By: #### L AB15 ####Registration Coordinator: JESSY OWENS ([id number])[facility])[address] [place] [address] Sodium [Moles/Vol] 135 mmol/L Low 136-145 [facility] Comment on above: Performed By: #### L AB15 ####Registration Coordinator: JESSY OWENS ([id number])[facility])[address] [place] [address] [place] Urea nitrogen [Mass/Vol] 53 mg/dL High 9-23 [facility] Comment on above: Performed By: #### L AB15 ####Registration Coordinator: JESSY [id number])[facility])[address] [place] [address] Anion gap [Moles/Vol] 12 mmol/L Normal 3-13 [facility] Comment on above: Performed By: #### L AB15, [id number], [id number] ####Registration Coordinator: JESSY OWENS ([id number])[facility] ([facility])[address] [place] [address] Calcium [Mass/Vol] 7.5 mg/dL Low 8.8-10.0 [facility] Comment on above: Performed By: #### L AB15, [id number], [id number] ####Registration Coordinator: JESSY OWENS ([id number])[facility] ([facility])[address] [place] [address] Chloride [Moles/Vol] 105 mmol/L Normal 98-107 [facility] Comment on above: Performed By: #### L AB15, [id number], [id number] ####Registration Coordinator: JESSY OWENS ([id number])[facility] ([facility])[address] [place] [address] CO2 [Moles/Vol] 15 mmol/L Low 23-31 [facility] Comment on above: Performed By: #### L AB15, [id number], [id number] ####Registration Coordinator: JESSY OWENS ([id number])[facility] ([facility])[address] [place] [address] Creatinine [Mass/Vol] 1.02 mg/dL Normal 0.57-1.11 [facility] Comment on above: Performed By: #### L AB15, [id number], [id number] ####Registration Coordinator: JESSY OWENS ([id number])[facility] ([facility])[address] [place] [address] GLOMERULAR FILTRATION RATE ML/MIN/1.73 SQ M.PREDICTED 62.3 mL/min/1.73m*2 Normal >60.0 [facility] Comment on above: Result Comment: Calc ulation based on the Chronic Kidney Disease Epidemiology Collaboration (CKD-EPI) equation refit without adjustment for race Performed By: #### L AB15, [id number], [id number] ####Registration Coordinator: JESSY OWENS ([id number])[facility])[address] [place] [address] Glucose [Mass/Vol] 116 mg/dL High 82-115 [facility] Comment on above: Performed By: #### L AB15, [id number], [id number] ####Registration Coordinator: JESSY OWENS ([id number])[facility])[address] [place] [address] Potassium [Moles/Vol] 2.4 mmol/L Critically low 3.5-5.1 [facility] Comment on above: Result Comment: [facility] potassium values may be up to 0.5 mmol/L lower than serum values. Performed By: #### L AB15, [id number], [id number] ####Registration Coordinator: JESSY OWENS ([id number])[facility] ([facility])[address] [place] [address] Sodium [Moles/Vol] 132 mmol/L Low 136-145 [facility] Comment on above: Performed By: #### L AB15, [id number], [id number] ####Registration Coordinator: JESSY OWENS ([id number])[facility] ([facility])[address] [place] [address] Urea nitrogen [Mass/Vol] 68 mg/dL High 9-23 [facility] Comment on above: Performed By: #### L AB15, [id number], [id number] ####Registration Coordinator: JESSY OWENS ([id number])[facility])[address] [place] [address] BLOOD GAS ARTERIALon 025 AMOUNT OF OXYGEN room air Normal [facility] Comment on above: Performed By: #### L AB76 ####Registration Coordinator: JESSY OWENS ([id number])[facility])[address] [place] [address] Base excess Calc (Bld) [Moles/Vol] -8.0000 mmol/L Low -3.0-3.0 [facility] Comment on above: Performed By: #### L AB76 ####Registration Coordinator: JESSY [id number])[facility] ([facility])[address] [place] [address] CO2 [Moles/Vol] 16.4 mmol/L Low 23.0-27.0 [facility] Comment on above: Performed By: #### L AB76 ####Registration Coordinator: JESSY OWENS ([id number])[facility])[address] [place] [address] HCO3 (Bld) [Moles/Vol] 15.6 mmol/L Low 21.0-25.0 [facility] Comment on above: Performed By: #### L AB76 ####Registration Coordinator: JESSY OWENS ([id number])[facility] ([facility])[address] [place] [address] Hemoglobin (Bld) [Mass/Vol] 8.4 g/dL Normal Screen only [facility] Comment on above: Performed By: #### L AB76 ####Registration Coordinator: JESSY OWENS ([id number])[facility])[address] [place] [address] OXYGEN SATURATION (%) IN ARTERIAL BLOOD 97.2 % Normal 95.0-100.0 [facility] Comment on above: Performed By: #### L AB76 ####Registration Coordinator: JESSY OWENS ([id number])[facility])[address] [place] [address] PCO2 ARTERIAL 25.4 mm Hg Low >35.0-<45.0 [facility] Comment on above: Performed By: #### L AB76 ####Registration Coordinator: JESSY OWENS ([id number])[facility])[address] [place] [address] PH ARTERIAL 7.407 Normal 7.350-7.450 [facility] Comment on above: Performed By: #### L AB76 ####Registration Coordinator: JESSY OWENS ([id number])[facility])[address] [place] [address] PO2 ARTERIAL 111.8 mm Hg High 80.0-100.0 [facility] Comment on above: Performed By: #### L AB76 ####Registration Coordinator: JESSY OWENS ([id number])[facility])[address] [place] [address] SOURCE OF OXYGEN None (Room Air) [facility] Comment on above: Performed By: #### L AB76 ####Registration Coordinator: JESSY OWENS ([id number])[facility] ([facility])[address] [place] [address] Basic metabolic 1998 panelon 11-25-2024 Anion gap [Moles/Vol] 12 mmol/L 3 - 13 mmol/L [facility] Calcium [Mass/Vol] 8 mg/dL Low 8.8 - 10. 0 mg/dL [facility] Chloride [Moles/Vol] 112 mmol/L High 98 - 10 7 mmol/L [facility] CO2 [Moles/Vol] 14 mmol/L Low 23 - 31 mmol/L [facility] Creatinine [Mass/Vol] 0.76 mg/dL 0.57 - 1.11 mg/dL [facility] GFR/1.73 sq M.predicted (S/P/Bld) [Vol rate/Area] 88.7 mL/min - PINF [facility] Glucose [Mass/Vol] 178 mg/dL High 82 - 115 mg/dL [facility] Interpretation and review of laboratory results Abnormal [facility] Potassium [Moles/Vol] 3.2 mmol/L Low 3.5 - 5.1 mmol/L [facility] Sodium [Moles/Vol] 138 mmol/L 136 - 145 mmol/L [facility] Urea nitrogen [Mass/Vol] 45 mg/dL High 9 - 23 mg/d L [facility] Anion gap [Moles/Vol] 12 mmol/L 3 - 13 mmol/L [facility] Calcium [Mass/Vol] 7.9 mg/dL Low 8.8 - 10. 0 mg/dL [facility] Chloride [Moles/Vol] 111 mmol/L High 98 - 10 7 mmol/L [facility] CO2 [Moles/Vol] 13 mmol/L Low 23 - 31 mmol/L [facility] Creatinine [Mass/Vol] 0.75 mg/dL 0.57 - 1.11 mg/dL [facility] GFR/1.73 sq M.predicted (S/P/Bld) [Vol rate/Area] - PINF [facility] Glucose [Mass/Vol] 158 mg/dL High 82 - 115 mg/dL [facility] Interpretation and review of laboratory results Abnormal [facility] Potassium [Moles/Vol] 2.9 mmol/L Low 3.5 - 5.1 mmol/L [facility] Sodium [Moles/Vol] 136 mmol/L 136 - 145 mmol/L [facility] Urea nitrogen [Mass/Vol] 47 mg/dL High 9 - 23 mg/d L [facility] Basic metabolic 1997 panelOr dered By: Shruti Kurtz on 11-25-2024 Anion gap [Moles/Vol] 12 mmol/L 3 - 13 mmol/L [facility] Calcium [Mass/Vol] 7.8 mg/dL Low 8.8 - 10. 0 mg/dL [facility] Chloride [Moles/Vol] 107 mmol/L 98 - 10 7 mmol/L [facility] CO2 [Moles/Vol] 16 mmol/L Low 23 - 31 mmol/L [facility] Creatinine [Mass/Vol] 0.79 mg/dL 0.57 - 1.11 mg/dL [facility] GFR/1.73 sq M.predicted (S/P/Bld) [Vol rate/Area] 84.7 mL/min - PINF [facility] Glucose [Mass/Vol] 120 mg/dL High 82 - 115 mg/dL [facility] Interpretation and review of laboratory results Abnormal [facility] Potassium [Moles/Vol] 2.6 mmol/L Critically low 3.5 - 5.1 mmol/L [facility] Sodium [Moles/Vol] 135 mmol/L Low 136 - 145 mmol/L [facility] Urea nitrogen [Mass/Vol] 53 mg/dL High 9 - 23 mg/d L [facility] Basic metabolic 1997 panelOr dered By: Yogi Merritt on 11-25-2024 Anion gap [Moles/Vol] 12 mmol/L 3 - 13 mmol/L [facility] Calcium [Mass/Vol] 7.5 mg/dL Low 8.8 - 10. 0 mg/dL [facility] Chloride [Moles/Vol] 105 mmol/L 98 - 10 7 mmol/L [facility] CO2 [Moles/Vol] 15 mmol/L Low 23 - 31 mmol/L [facility] Creatinine [Mass/Vol] 1.02 mg/dL 0.57 - 1.11 mg/dL [facility] GFR/1.73 sq M.predicted (S/P/Bld) [Vol rate/Area] 62.3 mL/min - PINF [facility] Glucose [Mass/Vol] 116 mg/dL High 82 - 115 mg/dL [facility] Interpretation and review of laboratory results Abnormal [facility] Potassium [Moles/Vol] 2.4 mmol/L Critically low 3.5 - 5.1 mmol/L [facility] Sodium [Moles/Vol] 132 mmol/L Low 136 - 145 mmol/L [facility] Urea nitrogen [Mass/Vol] 68 mg/dL High 9 - 23 mg/d L [facility] CBC W Auto Differential pane l (Bld)Ordered By: Maria Victoria Macias on 11-25-2024 Basophils (Bld) [#/Vol] 0 10*3/uL 0.0 - 0.2 10*3/uL [facility] Basophils/100 WBC (Bld) 0.4 % 0.0 - 2.0 % [facility] Eosinophils (Bld) [#/Vol] 0 10*3/uL 0.0 - 0.5 10*3/uL [facility] Eosinophils/100 WBC (Bld) 0.5 % 0.0 - 6.0 % [facility] Erythrocyte distribution width (RBC) [Ratio] 13.2 % 11.5 - 15.0 % [facility] Hematocrit (Bld) [Volume fraction] 23.3 % Low 35.0 - 47.0 % [facility] Hemoglobin (Bld) [Mass/Vol] 8.1 g/dL Low 11.7 - 16.0 g/dL [facility] Immature granulocytes (Bld) [#/Vol] 0.2 10*3/uL High NINF - 0.1 10*3/uL [facility] Conferize Immature granulocytes/100 WBC (Bld) 1.9 % 0.0 - 2.0 % [facility] Interpretation and review of laboratory results Abnormal [facility] IPF 4 [facility] Lymphocytes (Bld) [#/Vol] 0.7 10*3/uL Low 1.0 - 4.3 10*3/uL [facility] Lymphocytes/100 WBC (Bld) 7.9 % Low 15.0 - 45.0 % [facility] MCH (RBC) [Entitic mass] 35.4 pg High 26. 0 - 34.0 pg [facility] MCHC (RBC) [Mass/Vol] 34.8 % 30.5 - 36.0 % [facility] MCV (RBC) [Entitic vol] 101.7 fL High 77.0 - 99.0 fL [facility] Monocytes (Bld) [#/Vol] 0.4 10*3/uL 0.0 - 0.9 10*3/uL [facility] Monocytes/100 WBC (Bld) 4.4 % Low 5.0 - 13.0 % [facility] Neutrophils (Bld) [#/Vol] 7.2 10*3/uL 1.8 - 7.5 10*3/uL [facility] Neutrophils/100 WBC (Bld) 84.9 % High 38.0 - 82.0 % [facility] Nucleated RBC/100 WBC (Bld) [Ratio] 0.5 % [facility] Platelet mean volume (Bld) [Entitic vol] 11 fL 9.0 - 12.7 fL [facility] Platelets (Bld) [#/Vol] 91 10*3/uL Low 140 - 440 10*3/uL [facility] RBC (Bld) [#/Vol] 2.29 10*6/uL Low 3.80 - 5.2 0 10*6/uL [facility] WBC (Bld) [#/Vol] 8.5 10*3/uL 3.6 - 10.7 10*3/uL [facility] CBC WITH AUTO DIFFERENTIALon 11-25-2024 Basophils (Bld) [#/Vol] 0.0 10*3/uL Normal 0.0-0.2 [facility] Comment on above: Performed By: #### L [id number] ####Registration Coordinator: JESSY OWENS ([id number])[address] Basophils/100 WBC (Bld) 0.4 % Normal 0.0-2.0 [facility] Comment on above: Performed By: #### L [id number] ####Registration Coordinator: JESSY [id number])[facility])[address] [place] [address] Eosinophils (Bld) [#/Vol] 0.0 10*3/uL Normal 0.0-0.5 [facility] Comment on above: Performed By: #### L [id number] ####Registration Coordinator: JESSY OWENS ([id number])[facility])[address] [place] [address] Eosinophils/100 WBC (Bld) 0.5 % Normal 0.0-6.0 [facility] Comment on above: Performed By: #### L [id number] ####Registration Coordinator: JESSY OWENS ([id number])[address] Erythrocyte distribution width (RBC) [Ratio] 13.2 % Normal 11.5-15.0 [facility] Comment on above: Performed By: #### L [id number] ####Registration Coordinator: JESSY OWENS ([id number])[facility])[address] [place] [address] Hematocrit (Bld) [Volume fraction] 23.3 % Low 35.0-47.0 [facility] Comment on above: Performed By: #### L [id number] ####Registration Coordinator: JESSY OWENS ([id number])[address] Hemoglobin (Bld) [Mass/Vol] 8.1 g/dL Low 11.7-16.0 [facility] Comment on above: Performed By: #### L [id number] ####Registration Coordinator: JESSY OWENS ([id number])[facility])[address] [place] [address] IMMATURE GRANS % 1.9 % Normal 0.0-2.0 [facility] Comment on above: Performed By: #### L [id number] ####Registration Coordinator: JESSY OWENS ([id number])[address] IMMATURE GRANS ABSOLUTE 0.2 10*3/uL High <0.1 [facility] Comment on above: Performed By: #### L [id number] ####Registration Coordinator: JESSY OWENS ([id number])[facility])[address] [place] [address] IPF 4 Normal [facility] Comment on above: Performed By: #### L [id number] ####Registration Coordinator: JESSY OWENS ([id number])[facility])[address] [place] [address] Lymphocytes (Bld) [#/Vol] 0.7 10*3/uL Low 1.0-4.3 [facility] Comment on above: Performed By: #### L [id number] ####Registration Coordinator: JESSY OWENS ([phone])[address] Lymphocytes/100 WBC (Bld) 7.9 % Low 15.0-45.0 [facility] Comment on above: Performed By: #### L [id number] ####Registration Coordinator: JESSY OWENS ([id number])[facility])[address] [place] [address] MCH (RBC) [Entitic mass] 35.4 pg High 26.0-34.0 [facility] Comment on above: Performed By: #### L [id number] ####Registration Coordinator: JESSY OWENS ([id number])[address] MCHC 34.8 % Normal 30.5-36.0 [facility] Comment on above: Performed By: #### L [id number] ####Registration Coordinator: JESSY OWENS ([id number])[address] MCV (RBC) [Entitic vol] 101.7 fL High 77.0-99.0 [facility] Comment on above: Performed By: #### L [id number] ####Registration Coordinator: JESSY OWENS ([id number])[facility] [place] [address] Monocytes (Bld) [#/Vol] 0.4 10*3/uL Normal 0.0-0.9 [facility] Comment on above: Performed By: #### L [id number] ####Registration Coordinator: JESSY OWENS ([id number])[facility] ([facility])[address] [place] [address] Monocytes/100 WBC (Bld) 4.4 % Low 5.0-13.0 [facility] Comment on above: Performed By: #### L [id number] ####Registration Coordinator: JESSY OWENS ([id number])[facility] ([facility])[address] [place] [address] NEUTROPHILS ABSOLUTE 7.2 10*3/uL Normal 1.8-7.5 [facility] Comment on above: Performed By: #### L [id number] ####Registration Coordinator: JESSY OWENS ([id number])[facility] ([facility])[address] [place] [address] Neutrophils/100 WBC (Bld) 84.9 % High 38.0-82.0 [facility] Comment on above: Performed By: #### L [id number] ####Registration Coordinator: JESSY OWENS ([id number])[facility] ([facility])[address] [place] [address] NRBC 0.5 /100 WBCs Normal 0.0-2.0 [facility] Comment on above: Performed By: #### L [id number] ####Registration Coordinator: JESSY OWENS ([id number])[facility] ([facility])[address] [place] [address] Platelet mean volume (Bld) [Entitic vol] 11.0 fL Normal 9.0-12.7 [facility] Comment on above: Performed By: #### L [id number] ####Registration Coordinator: JESSY OWENS ([id number])[facility] ([facility])[address] [place] [address] Platelets (Bld) [#/Vol] 91 10*3/uL Low 140-440 [facility] Comment on above: Performed By: #### L [id number] ####Registration Coordinator: JESSY OWENS ([id number])[facility] ([facility])[address] [place] [address] RBC (Bld) [#/Vol] 2.29 10*6/uL Low 3.80-5.20 [facility] Comment on above: Performed By: #### L [id number] ####Registration Coordinator: JESSY OWENS ([phone])[facility] ([facility])[address] [place] [address] WBC (Bld) [#/Vol] 8.5 10*3/uL Normal 3.6-10.7 [facility] Comment on above: Performed By: #### L [id number] ####Registration Coordinator: JESSY OWENS ([phone])[facility] ([facility])[address] [place] [address] Consulton 11-25-2024 Consult Normal [facility] [facility] Consult Normal [facility] - Chemistry and C hemistry - challengeOrdered By: Emily Platt on 11-25-2024 Base excess Calc (Bld) [Moles/Vol] -8 mmol/L Low -3.0 - 3.0 mmol/L [facility] CO2 (Bld) [Partial pressure] 25.4 mm[Hg] Low - PINF [facility] CO2 [Moles/Vol] 16.4 mmol/L Low 23.0 - 27.0 mmol/L [facility] HCO3 (Bld) [Moles/Vol] 15.6 mmol/L Low 21.0 - 25.0 mmol/L [facility] Oxygen (Bld) [Partial pressure] 111.8 mm[Hg] High [facility] pH (Bld) 7.407 [pH] 7.350 - 7.450 [facility] - Chemistry and C hemistry - challengeon 11-25-2024 Magnesium [Mass/Vol] 2 mg/dL 1.6 - 2 .6 mg/dL [facility] Average glucose Estimated from glycated hemoglobin (Bld) [Mass/Vol] 105 mg/dL [facility] - Hematology and Cell countsOrdered By: Emily Platt on 11-25-2024 Hemoglobin (Bld) [Mass/Vol] 8.4 g/dL Screen only [facility] - Hematology and Cell countson 11-25-2024 HbA1c (Bld) [Mass fraction] 5.3 % NINF [facility] MAGNESIUMon 11-25-2024 Magnesium [Mass/Vol] 2.0 mg/dL Normal 1.6-2.6 [facility] Comment on above: Result Comment: TANA Wick COMMENTS:Higher values can be expected in females during menses. Performed By: #### L [id number], [id number], [id number] ####Registration Coordinator: JESSY OWENS ([id number])[facility])[address] [place] [address] Magnesium [Mass/Vol]on 11-25 Interpretation and review of laboratory results Normal [facility] No Panel Informationon 11-25 [facility] CV CPACS [facility] No Panel InformationOrdered By: Emily Platt on 11-25-2024 Amount Of Oxygen room air [facility] Interpretation and review of laboratory results Abnormal [facility] Source Of Oxygen None (Room Air) [facility] No Panel InformationOrdered By: Sadaf Cueto on 11-25-2024 Interpretation and review of laboratory results Abnormal [facility] mecA/C (MRSE/MRSL) Not detected Not Detected [facility] Staphylococcus epidermidis Detected Abnormal Not Detected [facility] PHOSPHORUSon 11-25-2024 Phosphate [Mass/Vol] 3.2 mg/dL Normal 2.3-4.7 [facility] Comment on above: Performed By: #### L [id number], [id number], [id number] ####Registration Coordinator: JESSY OWENS ([id number])[facility])[address] [place] [address] [place] Phosphate [Moles/Vol]on Interpretation and review of laboratory results Normal [facility] Phosphate [Mass/Vol] 3.2 mg/dL 2.3 - 4 .7 mg/dL [facility] Progress Noteon 11-25-2024 Progress Note Normal [facility] Note Normal [facility] Progress Note Normal [facility] Progress Note Normal [facility] US ABDOMEN LIMITEDon 025 US ABDOMEN LIMITED Normal [facility] US Abdomen limitedon 025 [facility] EM[facility]ENC[facility]PART[facility] RADIOLOGY [facility] RADIOLOGY [facility] Radiology Study observation (narrative) [facility] alth US Abdomen limitedOrdered By : Jean-Pierre Manuel on 11-25-2024 [facility] [employer] Work Phone: US Heart TransthoracicOrdere d By: Chino Zeng on 11-25-2024 Aortic Arch 2.8 cm [facility] Work Phone: Aortic Sinus Valsalva 3.3 cm [facility] Work Phone: Aortic Sinus Valsalva Index 1.43 cm/m2 [facility] Work Phone: Aortic valve Mean systole pressure gradient by US.doppler derived full Bernoulli 6 mmHg [facility] Work Phone: Aortic valve Orifice area by US 3.1 cm2 [facility] Work Phone: Aortic valve Peak systolic flow by US.doppler 1.1 m/s [facility] Work Phone: Ascending Aorta 3.5 cm [facility] Work Phone: Ascending Aorta Index 1.52 cm/m2 [facility] [employer] Work Phone: AV Area by Peak Velocity 2.4 cm2 [facility] Work Phone: AV Area by VTI 2.7 cm2 [facility] Work Phone: AV Peak Gradient 11 mmHg [facility] Work Phone: AV Peak Velocity 1.7 m/s [facility] Work Phone: AV Velocity Ratio 0.76 [facility] [employer] Work Phone: AV VTI 33.1 cm [facility] Work Phone: GEOVANI/BSA Peak Velocity 1 cm2/m2 [facility] [employer] Work Phone: [phone] GEOVANI/BSA VTI 1.2 cm2/m2 [facility] [employer] Work Phone: E/E' Septal 6.67 [facility] [employer] Work Phone: Est. RA Pressure 8 mmHg [facility] [employer] Work Phone: Fractional Shortening 2D 38 % 28 - 44 % [facility] [employer] Work Phone: [phone] Interpretation and review of laboratory results Abnormal [facility] [employer] Work Phone: [phone] IVC Diameter 1.6 cm [facility] [employer] Work Phone: IVSd 0.9 cm 0.6 - 0.9 cm [facility] [employer] Phone: LA Diameter 4.2 cm [facility] [employer] Phone: LA Size Index 1.83 cm/m2 [facility] [address] Work Phone: LV E' Septal Velocity 9 cm/s [facility] Work Phone: LV Mass 2D 153.4 g 67 - 162 g [facility] [employer] Phone: LV Mass 2D Index 66.7 g/m2 43 - 95 g/m2 [facility] [employer] Phone: LV RWT Ratio 0.43 [facility] [employer] Phone: LVIDd 4.7 cm 3.9 - 5.3 cm [facility] [employer] Work Phone: LVIDd Index 2.04 cm/m2 [facility] [employer] Work Phone: LVIDs 2.9 cm [facility] [employer] Work Phone: LVIDs Index 1.26 cm/m2 [facility] [employer] Phone: LVOT Cardiac Output 5.3 liter/minute [facility] Work Phone: LVOT Diameter 2 cm [facility] [address] Work Phone: LVOT Mean Gradient 4 mmHg [facility] [employer] Phone: LVOT Peak Gradient 7 mmHg [facility] Work Phone: [phone] LVOT Peak Velocity 1.3 m/s [facility] [employer] Work Phone: [phone] [facility] Stroke Volume Index 39.9 mL/m2 [facility] [employer] Work Phone: LVOT SV 91.7 ml [facility] [employer] Work Phone: [phone] LVOT VTI 29.2 cm [facility] [employer] Work Phone: [phone] LVOT:AV VTI Index 0.88 [facility] [employer] Work Phone: LVPWd 1 cm Abnormal 0.6 - 0.9 cm [facility] [employer] Work Phone: [phone] MV A Velocity 0.46 m/s [facility] Work Phone: [phone] MV E Velocity 0.6 m/s [facility] Work Phone: MV E Wave Deceleration Time 210 ms [facility] [employer] Work Phone: [phone] MV E/A 1.3 [facility] [employer] Work Phone: RV Free Wall Peak S' 11 cm/s [facility] [employer] Work Phone: RVSP 26 mmHg [facility] [employer] Work Phone: Sinotubular Junction 2.9 cm [facility] [employer] Work Phone: TAPSE 2.2 cm 1.7 cm [facility] [employer] Work Phone: TR Max Velocity 2.11 m/s [facility] Work Phone: TR Peak Gradient 18 mmHg [facility] Work Phone: [facility] [employer] Work Phone: US Heart Transthoracicon CV CPACS XR CHEST 1 VIEWon 11-25-2024 XR CHEST 1 VIEW Normal [facility] XR Chest Single viewon 11-25 [facility] EMERGENCY DEPARTMENT RADIOLOGY SYSTEM [facility] Radiology Study observation (narrative) [facility] XR Chest Single viewOrdered By: Nury Ayala on 11-25-2024 [facility] [employer] Work Phone: BLOOD CULTUREon 11-24-2024 Bacteria identified Cx Nom (Bld) Normal [facility] Comment on above: Performed By: #### L [id number], [id number] ####Registration Coordinator: JESSY OWENS ([id number])[facility] ([facility])[address] [place] [address] Performed By: #### L [id number] ####Registration Coordinator: JESSY OWENS ([id number])[facility] ([facility])[address] [place] [address] BLOOD CULTURE IDENTIFICATION - ANAEROBICon 11-24-2024 BLOOD CULTURE IDENTIFICATION - ANAEROBIC Normal [facility] Comment on above: Performed By: #### L [id number], [id number] ####Registration Coordinator: JESSY OWENS ([id number])[address] BLOOD GAS, VENOUSon 11-25-19 25 AMOUNT OF OXYGEN Normal [facility] Comment on above: Result Comment: TANA Wick COMMENTS:Assessment of oxygenation is best done with an arterial blood gas determination. Reference ranges for pO2, bicarbonate, and base excess are for mixed venous blood. Specimens drawn from a peripheral vein will often have higher values. Performed By: #### L [id number] ####Registration Coordinator: JESSY OWENS ([id number])[facility] ([facility])[address] [place] [address] Base excess Calc (BldV) [Moles/Vol] -8.0000 mmol/L Low -3.0-3.0 [facility] Comment on above: Performed By: #### L [id number] ####Registration Coordinator: JESSY OWENS ([id number])[facility])[address] [place] [address] CO2 [Moles/Vol] 17.4 mmol/L Low 24.0-28.0 [facility] Comment on above: Performed By: #### L [id number] ####Registration Coordinator: JESSY OWENS ([id number])[facility])[address] [place] [address] HCO3 (Bld) [Moles/Vol] 16.5 mmol/L Low 23.0-27.0 [facility] Comment on above: Performed By: #### L [id number] ####Registration Coordinator: JESSY OWENS ([id number])[facility])[address] [place] [address] Hemoglobin (Bld) [Mass/Vol] 8.8 g/dL Normal Screen only [facility] Comment on above: Performed By: #### L [id number] ####Registration Coordinator: JESSY OWENS ([id number])[facility] ([facility])[address] [place] [address] OXYGEN (MM HG) IN VENOUS BLOOD 35.3 mm Hg Normal [facility] Comment on above: Performed By: #### L AB79 ####Registration Coordinator: JESSY OWENS ([id number])[facility])[address] [place] [address] OXYGEN SATURATION (%) IN VENOUS BLOOD 56.4 % Normal [facility] Comment on above: Performed By: #### L AB79 ####Registration Coordinator: JESSY OWENS ([id number])[facility] ([facility])[address] [place] [address] PCO2, DENIA 29.6 mm Hg Low 40.0-55.0 [facility] Comment on above: Performed By: #### L AB79 ####Registration Coordinator: JESSY OWENS ([id number])[facility])[address] [place] [address] PH VENOUS 7.363 Normal 7.330-7.430 [facility] Comment on above: Performed By: #### L AB79 ####Registration Coordinator: JESSY OWENS ([id number])[facility])[address] [place] [address] SOURCE OF OXYGEN None (Room Air) Normal [facility] Comment on above: Performed By: #### L AB79 ####Registration Coordinator: JESSY OWENS ([id number])[facility] ([facility])[address] C-REACTIVE PROTEINon 025 CRP [Mass/Vol] 136.4 mg/L High <5.0 [facility] Comment on above: Performed By: #### L AB149, [id number], [id number] ####Registration Coordinator: JESSY OWENS ([id number])[facility] ([facility])[address] [place] [address] CBC W Auto Differential pane l (Bld)on 11-24-2024 Basophils (Bld) [#/Vol] 0 10*3/uL 0.0 - 0.2 10*3/uL [facility] Basophils/100 WBC (Bld) 0.3 % 0.0 - 2.0 % [facility] [employer] Eosinophils (Bld) [#/Vol] 0 10*3/uL 0.0 - 0.5 10*3/uL [facility] Eosinophils/100 WBC (Bld) 0.3 % 0.0 - 6.0 % [facility] Erythrocyte distribution width (RBC) [Ratio] 12.9 % 11.5 - 15.0 % [facility] Hematocrit (Bld) [Volume fraction] 26.7 % Low 35.0 - 47.0 % [facility] Hemoglobin (Bld) [Mass/Vol] 9.1 g/dL Low 11.7 - 16.0 g/dL [facility] Immature granulocytes (Bld) [#/Vol] 0.1 10*3/uL High NINF - 0.1 10*3/uL [facility] Immature granulocytes/100 WBC (Bld) 1 % 0.0 - 2.0 % [facility] Interpretation and review of laboratory results Abnormal [facility] Lymphocytes (Bld) [#/Vol] 0.7 10*3/uL Low 1.0 - 4.3 10*3/uL [facility] Lymphocytes/100 WBC (Bld) 7.7 % Low 15.0 - 45.0 % [facility] [employer] MCH (RBC) [Entitic mass] 34.1 pg High 26. 0 - 34.0 pg [facility] MCHC (RBC) [Mass/Vol] 34.1 % 30.5 - 36.0 % [facility] MCV (RBC) [Entitic vol] 100 fL High 77.0 - 99.0 fL [facility] Monocytes (Bld) [#/Vol] 0.3 10*3/uL 0.0 - 0.9 10*3/uL [facility] Monocytes/100 WBC (Bld) 3.5 % Low 5.0 - 13.0 % [facility] Neutrophils (Bld) [#/Vol] 7.7 10*3/uL High 1.8 - 7.5 10*3/uL [facility] Neutrophils/100 WBC (Bld) 87.2 % High 38.0 - 82.0 % [facility] Nucleated RBC/100 WBC (Bld) [Ratio] 0.5 % [facility] Platelet mean volume (Bld) [Entitic vol] 11 fL 9.0 - 12.7 fL [facility] Platelets (Bld) [#/Vol] 104 10*3/uL Low 140 - 440 10*3/uL [facility] RBC (Bld) [#/Vol] 2.67 10*6/uL Low 3.80 - 5.2 0 10*6/uL [facility] WBC (Bld) [#/Vol] 8.9 10*3/uL 3.6 - 10.7 10*3/uL [facility] CBC WITH AUTO DIFFERENTIALon 11-24-2024 Basophils (Bld) [#/Vol] 0.0 10*3/uL Normal 0.0-0.2 [facility] Comment on above: Performed By: #### Davidson [id number], [id number] ####Registration Coordinator: JESSY OWENS ([id number])[facility] ([address] Basophils/100 WBC (Bld) 0.3 % Normal 0.0-2.0 [facility] Comment on above: Performed By: #### Davidson AB322, [id number] ####Registration Coordinator: JESSY OWENS ([id number])[address] Eosinophils (Bld) [#/Vol] 0.0 10*3/uL Normal 0.0-0.5 [facility] Comment on above: Performed By: #### Davidson AB322, [id number] ####Registration Coordinator: JESSY WOENS ([id number])[facility])[address] [place] [address] Eosinophils/100 WBC (Bld) 0.3 % Normal 0.0-6.0 [facility] Comment on above: Performed By: #### Davidson AB322, [id number] ####Registration Coordinator: JESSY OWENS ([id number])[facility])[address] [place] [address] Erythrocyte distribution width (RBC) [Ratio] 12.9 % Normal 11.5-15.0 [facility] Comment on above: Performed By: #### Davidson AB322, [id number] ####Registration Coordinator: JESSY OWENS ([id number])[address] Hematocrit (Bld) [Volume fraction] 26.7 % Low 35.0-47.0 [facility] Comment on above: Performed By: #### Davidson AB322, [id number] ####Registration Coordinator: JESSY OWENS ([id number])[address] Hemoglobin (Bld) [Mass/Vol] 9.1 g/dL Low 11.7-16.0 [facility] Comment on above: Performed By: #### Davidson AB322, [id number] ####Registration Coordinator: JESSY OWENS ([id number])[facility])[address] [place] [address] IMMATURE GRANS % 1.0 % Normal 0.0-2.0 [facility] Comment on above: Performed By: #### Davidson AB322, [id number] ####Registration Coordinator: JESSY OWENS ([id number])[address] IMMATURE GRANS ABSOLUTE 0.1 10*3/uL High <0.1 [facility] Comment on above: Performed By: #### Davidson AB322, [id number] ####Registration Coordinator: JESSY OWENS ([id number])[facility])[address] [place] [address] Lymphocytes (Bld) [#/Vol] 0.7 10*3/uL Low 1.0-4.3 [facility] Comment on above: Performed By: #### Davidson AB322, [id number] ####Registration Coordinator: JESSY OWENS ([id number])[facility])[address] [place] [address] Lymphocytes/100 WBC (Bld) 7.7 % Low 15.0-45.0 [facility] Comment on above: Performed By: #### Davidson AB322, [id number] ####Registration Coordinator: JESSY OWENS ([id number])[facility])[address] [place] [address] MCH (RBC) [Entitic mass] 34.1 pg High 26.0-34.0 [facility] Comment on above: Performed By: #### Davidson AB322, [id number] ####Registration Coordinator: JESSY OWENS ([id number])[facility])[address] [place] [address] MCHC 34.1 % Normal 30.5-36.0 [facility] Comment on above: Performed By: #### Davidson AB322, [id number] ####Registration Coordinator: JESSY OWENS ([id number])[facility])[address] [place] [address] MCV (RBC) [Entitic vol] 100.0 fL High 77.0-99.0 [facility] Comment on above: Performed By: #### Davidson AB322, [id number] ####Registration Coordinator: JESSY OWENS ([id number])[facility])[address] [place] [address] Monocytes (Bld) [#/Vol] 0.3 10*3/uL Normal 0.0-0.9 [facility] Comment on above: Performed By: #### Davidson AB322, [id number] ####Registration Coordinator: JESSY [id number])[facility] ([facility])[address] [place] [address] [place] Monocytes/100 WBC (Bld) 3.5 % Low 5.0-13.0 [facility] Comment on above: Performed By: #### L AB322, [id number] ####Registration Coordinator: JESSY OWENS ([id number])[facility] [place] [address] [place] NEUTROPHILS ABSOLUTE 7.7 10*3/uL High 1.8-7.5 [facility] Comment on above: Performed By: #### L AB322, [id number] ####Registration Coordinator: JESSY OWENS ([id number])[facility] ([facility])[address] [place] [address] Neutrophils/100 WBC (Bld) 87.2 % High 38.0-82.0 [facility] Comment on above: Performed By: #### L AB322, [id number] ####Registration Coordinator: JESSY OWENS ([id number])[facility] [place] [address] [place] NRBC 0.5 /100 WBCs Normal 0.0-2.0 [facility] Comment on above: Performed By: #### L AB322, [id number] ####Registration Coordinator: JESSY OWENS ([id number])[facility] ([facility])[address] [place] [address] Platelet mean volume (Bld) [Entitic vol] 11.0 fL Normal 9.0-12.7 [facility] Comment on above: Performed By: #### L AB322, [id number] ####Registration Coordinator: JESSY OWENS ([id number])[facility] ([facility])[address] [place] [address] [place] Platelets (Bld) [#/Vol] 104 10*3/uL Low 140-440 [facility] Comment on above: Performed By: #### L AB322, [id number] ####Registration Coordinator: JESSY OWENS ([id number])[facility] ([facility])[address] [place] [address] RBC (Bld) [#/Vol] 2.67 10*6/uL Low 3.80-5.20 [facility] Comment on above: Performed By: #### L AB322, [id number] ####Registration Coordinator: JESSY OWENS ([id number])[facility])[address] [place] [address] WBC (Bld) [#/Vol] 8.9 10*3/uL Normal 3.6-10.7 [facility] Comment on above: Performed By: #### L AB322, [id number] ####Registration Coordinator: JESSY OWENS ([id number])[facility])[address] [place] [address] CKon 11-24-2024 CK [Catalytic activity/Vol] 59 U/L Normal 30-185 [facility] Comment on above: Performed By: #### L [id number], [id number] ####Registration Coordinator: JESSY OWENS ([id number])[facility])[address] [place] [address] CK [Catalytic activity/Vol]o n 11-24-2024 Interpretation and review of laboratory results Normal [facility] COMPLETE URINALYSIS WITH REF MARIN TO CULTUREon 11-24-2024 BACTERIA (#/HPF) IN URINE Few Abnormal Negative [facility] Comment on above: Performed By: #### L [id number], [id number] ####Registration Coordinator: JESSY OWENS ([id number])[facility])[address] [place] [address] BILIRUBIN, TOTAL PRESENCE IN URINE Negative Normal Negative [facility] Comment on above: Performed By: #### L [id number], [id number] ####Registration Coordinator: JESSY OWENS ([id number])[facility])[address] [place] [address] Clarity (U) Turbid Abnormal Clear [facility] Comment on above: Performed By: #### L [id number], [id number] ####Registration Coordinator: JESSY OWENS ([id number])[facility] [place] [address] Color (U) Yellow Normal Lt. Yellow [facility] Comment on above: Performed By: #### L [id number], [id number] ####Registration Coordinator: JESSY OWENS ([id number])[facility] ([facility])[address] [place] [address] GLUCOSE (MG/DL) IN URINE Normal Normal Normal (<70 ) [facility] Comment on above: Performed By: #### L [id number], [id number] ####Registration Coordinator: JESSY OWENS ([id number])[facility])[address] [place] [address] HEMOGLOBIN PRESENCE IN URINE 1.0 mg/dL Abnormal Negative [facility] Comment on above: Performed By: #### L [id number], [id number] ####Registration Coordinator: JESSY OWENS ([id number])[facility] ([facility])[address] [place] [address] HYALINE CASTS (#/LPF) IN URINE SEDIMENT BY MICROSCOPY Negative Normal Negative [facility] Comment on above: Performed By: #### L [id number], [id number] ####Registration Coordinator: JESSY OWENS ([id number])[facility] ([facility])[address] [place] [address] Ketones Ql (U) Negative Normal Negative [facility] Comment on above: Performed By: #### L [id number], [id number] ####Registration Coordinator: JESSY OWENS ([id number])[facility] ([facility])[address] [place] [address] [place] LEUKOCYTE ESTERASE PRESENCE IN URINE BY TEST STRIP 500 William/uL Abnormal Negative [facility] Comment on above: Performed By: #### L [id number], [id number] ####Registration Coordinator: JESSY OWENS ([id number])[facility] ([facility])[address] [place] [address] [place] MUCUS (#/LPF) IN URINE SEDIMENT Few Normal Negative [facility] Comment on above: Performed By: #### L [id number], [id number] ####Registration Coordinator: JESSY OWENS ([id number])[facility] ([facility])[address] [place] [address] NITRITE PRESENCE IN URINE Negative Normal Negative [facility] Comment on above: Performed By: #### L [id number], [id number] ####Registration Coordinator: JESSY OWENS ([id number])[facility] ([facility])[address] [place] [address] pH (U) 5.5 [pH] Normal 5.0-8.0 [facility] Comment on above: Performed By: #### L [id number], [id number] ####Registration Coordinator: JESSY OWENS ([id number])[facility] ([facility])[address] [place] [address] Protein (U) [Mass/Vol] 50 mg/dL Abnormal Negative [facility] Comment on above: Performed By: #### L [id number], [id number] ####Registration Coordinator: JESSY OWENS ([id number])[facility] ([facility])[address] [place] [address] RBC (#/HPF) IN URINE SEDIMENT 3-5 Abnormal 0-2 [facility] Comment on above: Performed By: #### L [id number], [id number] ####Registration Coordinator: JESSY OWENS ([id number])[facility] ([facility])[address] [place] [address] Specific gravity (U) [Rel density] 1.013 Normal 1.005-1.030 [facility] Comment on above: Result Comment: TANA R COMMENTS:This specimen has been reflexed to urine culture. Performed By: #### L [id number], [id number] ####Registration Coordinator: JESSY OWENS ([id number])[facility] ([facility])[address] [place] [address] SQUAMOUS EPITHELIAL CELLS (#/HPF) IN URINE SEDIMENT 3-5 Normal 3-5 [facility] Comment on above: Performed By: #### L [id number], [id number] ####Registration Coordinator: JESSY OWENS ([id number])[facility] ([facility])[address] [place] [address] UROBILINOGEN (MG/DL) IN URINE 3 mg/dL Abnormal Normal (0-1) [facility] Comment on above: Performed By: #### L [id number], [id number] ####Registration Coordinator: JESSY OWENS ([id number])[facility] ([facility])[address] [place] [address] WBC (LEUKOCYTE) (#/HPF) IN URINE SEDIMENT 51-100 Abnormal 0-5 [facility] Comment on above: Performed By: #### L [id number], [id number] ####Registration Coordinator: JESSY OWENS ([id number])[facility] ([facility])[address] [place] [address] COMPREHENSIVE METABOLIC PANE Neo 11-24-2024 Albumin [Mass/Vol] 2.2 g/dL Low 3.4-4.8 [facility] Comment on above: Performed By: #### L [id number], LAB17, [id number] ####Registration Coordinator: JESSY OWENS ([id number])[facility] ([facility])[address] [place] [address] ALP [Catalytic activity/Vol] 111 U/L Normal 40-150 [facility] Comment on above: Performed By: #### L AB149, LAB17, [id number] ####Registration Coordinator: JESSY OWENS ([id number])[facility] ([facility])[address] [place] [address] ALT [Catalytic activity/Vol] 10 U/L Normal <30 [facility] Comment on above: Performed By: #### L AB149, LAB17, [id number] ####Registration Coordinator: JESSY OWENS ([id number])[facility])[address] [place] [address] Anion gap [Moles/Vol] 18 mmol/L High 3-13 [facility] Comment on above: Performed By: #### L AB149, LAB17, [id number] ####Registration Coordinator: JESSY OWENS ([id number])[facility] ([facility])[address] [place] [address] AST [Catalytic activity/Vol] 25 U/L Normal <34 [facility] Comment on above: Performed By: #### Davidson ABZeina, LAB17, [id number] ####Registration Coordinator: JESSY OWENS ([id number])[facility] ([facility])[address] [place] [address] Bilirubin [Mass/Vol] 2.0 mg/dL High <1.2 [facility] Comment on above: Performed By: #### Davidson CASILLAS, LAB17, [id number] ####Registration Coordinator: JESSY OWENS ([id number])[facility] ([facility])[address] [place] [address] Calcium [Mass/Vol] 8.2 mg/dL Low 8.8-10.0 [facility] Comment on above: Performed By: #### Davidson CASILLAS, LAB17, [id number] ####Registration Coordinator: JESSY OWENS ([id number])[facility] ([facility])[address] [place] [address] [place] Chloride [Moles/Vol] 95 mmol/L Low 98-107 [facility] Comment on above: Performed By: #### Davidson CASILLAS, LAB17, [id number] ####Registration Coordinator: JESSY OWENS ([id number])[facility] ([facility])[address] [place] [address] [place] CO2 [Moles/Vol] 13 mmol/L Low 23-31 [facility] Comment on above: Performed By: #### Davidson CASILLAS, LAB17, [id number] ####Registration Coordinator: JESSY OWENS ([id number])[facility] ([facility])[address] [place] [address] Creatinine [Mass/Vol] 1.59 mg/dL High 0.57-1.11 [facility] Comment on above: Performed By: #### Davidson CASILLAS, LAB17, [id number] ####Registration Coordinator: JESSY OWENS ([id number])[facility])[address] [place] [address] [place] GLOMERULAR FILTRATION RATE ML/MIN/1.73 SQ M.PREDICTED 36.6 mL/min/1.73m*2 Low >60.0 [facility] Comment on above: Result Comment: Calc ulation based on the Chronic Kidney Disease Epidemiology Collaboration (CKD-EPI) equation refit without adjustment for race Performed By: #### Davidson CASILLAS, LAB17, [id number] ####Registration Coordinator: JESSY OWENS ([id number])[facility])[address] [place] [address] Glucose [Mass/Vol] 116 mg/dL High 82-115 [facility] Comment on above: Performed By: #### Davidson CASILLAS, LAB17, [id number] ####Registration Coordinator: JESSY OWENS ([id number])[facility])[address] [place] [address] Potassium [Moles/Vol] 3.5 mmol/L Normal 3.5-5.1 [facility] Comment on above: Result Comment: [facility] potassium values may be up to 0.5 mmol/L lower than serum values. Performed By: #### Davidosn CASILLAS, LAB17, [id number] ####Registration Coordinator: JESSY OWENS ([id number])[place] [address] [place] Protein [Mass/Vol] 5.9 g/dL Low 6.4-8.3 [facility] Comment on above: Performed By: #### L VINNY, LAB17, [id number] ####Registration Coordinator: JESSY OWENS ([id number])[place] [address] [place] Sodium [Moles/Vol] 126 mmol/L Low 136-145 [facility] Comment on above: Performed By: #### Davidson CASILLAS, LAB17, [id number] ####Registration Coordinator: JESSY OWENS ([id number])[facility])[address] [place] [address] Urea nitrogen [Mass/Vol] 92 mg/dL High 9-23 [facility] Comment on above: Performed By: #### L AB149, LAB17, [id number] ####Registration Coordinator: JESSY OWENS ([id number])[facility] ([facility])[address] [place] [address] CULTURE ANAEROBICon 11-25-19 CULTURE ANAEROBIC Normal [facility] Comment on above: Performed By: #### L [id number] ####Registration Coordinator: JESSY OWENS ([id number])[facility])[address] [place] [address] CULTURE, AEROBIC BACTERIA WI TH GRAM STAINon 11-24-2024 CULTURE, AEROBIC BACTERIA WITH GRAM STAIN [facility] Comment on above: Performed By: #### L [id number] ####Registration Coordinator: JESSY OWENS ([id number])[facility] ([facility])[address] [place] [address] Comprehensive metabolic 1998 panelon 11-24-2024 Albumin [Mass/Vol] 2.2 g/dL Low 3.4 - 4.8 g/dL [facility] ALP [Catalytic activity/Vol] 111 U/L 40 - 150 U/L [facility] ALT [Catalytic activity/Vol] 10 U/L NINF - 30 U/L [facility] Anion gap [Moles/Vol] 18 mmol/L High 3 - 13 mmol/L [facility] AST [Catalytic activity/Vol] 25 U/L NINF - 34 U/L [facility] Bilirubin [Mass/Vol] 2 mg/dL High NINF - 1.2 mg/dL [facility] Calcium [Mass/Vol] 8.2 mg/dL Low 8.8 - 10. 0 mg/dL [facility] Chloride [Moles/Vol] 95 mmol/L Low 98 - 10 7 mmol/L [facility] CO2 [Moles/Vol] 13 mmol/L Low 23 - 31 mmol/L [facility] Creatinine [Mass/Vol] 1.59 mg/dL High 0.57 - 1.11 mg/dL [facility] GFR/1.73 sq M.predicted (S/P/Bld) [Vol rate/Area] 36.6 mL/min Low - PINF [facility] Glucose [Mass/Vol] 116 mg/dL High 82 - 115 mg/dL [facility] Potassium [Moles/Vol] 3.5 mmol/L 3.5 - 5.1 mmol/L [facility] Protein [Mass/Vol] 5.9 g/dL Low 6.4 - 8.3 g/dL [facility] Sodium [Moles/Vol] 126 mmol/L Low 136 - 145 mmol/L [facility] Urea nitrogen [Mass/Vol] 92 mg/dL High 9 - 23 mg/d L [facility] Consulton 11-24-2024 Consult Normal [facility] ECG 12-LEADon 11-24-2024 ECG 12-LEAD IMPRESSION: Sinus rhythm Ventricular premature complex Repol abnrm suggests ischemia, anterolateral Electronically Signed On 11-24-2024 22:22:19 EDT by Luana Israel Normal [facility] ED Nursing Noteon 11-24-2024 ED Nursing Note Report to Lauren on T3. Normal [facility] ED Nursing Note Pt completely covered in stool. Pt cleaned up. Pt has multiple wounds. Pictures uploaded to chart. Normal [facility] ED Nursing Note Pt arrived from home for failure to thrive. Pt states she has been in so much pain that she has been unable to get out of her chair x1 week. Pt covered in feces and wound to left lower leg. Normal [facility] ED Provider Noteon ED Provider Note Normal [facility] ED Provider Note I did not participate in the care of this patient. Narendra Lai PA-C 11/24/24 1315 Normal [facility] ESR (Bld) [Velocity]Ordered By: Anna Torres on 11-24-2024 Interpretation and review of laboratory results Abnormal [facility] HEMOGLOBIN A1Con 11-24-2024 Glucose [Mass/Vol] 105 mg/dL Normal [facility] Comment on above: Result Comment: TANA R COMMENTS:HbA1c values of 5.7-6.4 percent indicate an increased risk for developing diabetes mellitus. HbA1c values greater than or equal to 6.5 percent are diagnostic of diabetes mellitus. For diagnosis of diabetes in individuals without unequivocal hyperglycemia, results should be confirmed by repeat testing. Performed By: #### L AB90 ####Registration Coordinator: JESSY OWENS ([id number])[facility])[address] [place] [address] HEMOGLOBIN A1C 5.3 %HbA1C Normal <5.7 [facility] Comment on above: Result Comment: Norm al less than 5.7%Prediabetes 5.7% to 6.4%Diabetes 6.5% or higher--HgbA1C levels may not be accurate in patients who have renal disease, received recent blood transfusions, are anemic, or who have dyshemoglobinemia. Performed By: #### L AB90 ####Registration Coordinator: JESSY OWENS ([phone])[facility])[address] [place] [address] HIGH SENSITIVITY TROPONIN, S ERIAL BASELINEon 11-24-2024 TROPONIN HS SERIAL BASELINE 3 ng/L Normal <=14 [facility] Comment on above: Result Comment: In i ndividuals presenting with symptoms > 2h, a baseline troponin <= 5 ng/L suggests acutecardiac injury is unlikely and further serial testing is generally not indicated. Performed By: #### L AB149, LAB17, [id number] ####Registration Coordinator: JESSY OWENS ([id number])[address] HIGH SENSITIVITY TROPONIN, S ERIAL, SECOND TESTon 11-24-2024 2H TROPONIN HS (SERIAL 2ND TROPONIN) 3 ng/L Normal <=14 [facility] Comment on above: Result Comment: Risi ng or falling troponin delta below 2 ng/L as compared to baseline value suggests thatacute cardiac injury is unlikely. Performed By: #### L [id number], [id number] ####Registration Coordinator: JESSY OWENS ([id number])[facility])[address] [place] [address] LACTIC ACID WITH REFLEXon Lactate [Moles/Vol] 1.7 mmol/L Normal 0.5-2.2 [facility] Comment on above: Performed By: #### L [id number] ####Registration Coordinator: JESSY OWENS ([id number])[facility] ([address] Laboratory - Chemistry and C hemistry - challengeon 11-24-2024 CK [Catalytic activity/Vol] 59 U/L 30 - 185 U/L [facility] Base excess Calc (BldV) [Moles/Vol] -8 mmol/L Low -3.0 - 3.0 mmol/L [facility] CO2 (BldV) [Partial pressure] 29.6 mm[Hg] Low [facility] CO2 [Moles/Vol] 17.4 mmol/L Low 24.0 - 28.0 mmol/L [facility] HCO3 (Bld) [Moles/Vol] 16.5 mmol/L Low 23.0 - 27.0 mmol/L [facility] Oxygen (BldV) [Partial pressure] 35.3 mm[Hg] mm Hg [facility] pH (BldV) 7.363 [pH] 7.330 - 7.430 [facility] CRP [Mass/Vol] 136.4 mg/L High NINF - 5.0 mg/L [facility] Lactate [Moles/Vol] 1.7 mmol/L 0.5 - 2. 2 mmol/L [facility] Laboratory - Hematology and Cell countson 11-24-2024 Hemoglobin (Bld) [Mass/Vol] 8.8 g/dL Screen only [facility] Laboratory - Hematology and Cell countsOrdered By: Anna Torres on 11-24-2024 ESR (Bld) [Velocity] 45 mm/h High [facility] No Panel InformationOrdered By: Luana Israel on 11-24-2024 P [place] 0 degrees [facility] Work Phone: [place] Interval 199 ms [facility] Work Phone: QRS [place] -17 degrees [facility] Work Phone: QRSD Interval 113 ms [facility] Work Phone: QT Interval 487 ms [facility] Work Phone: QTC Interval 497 ms [facility] Work Phone: T Wave [place] 107 degrees [facility] Work Phone: [facility] Work Phone: No Panel Informationon 11-24 CV EPIPHANY [facility] 2h Troponin HS (Serial 2nd Troponin) 3 ng/L NINF - 14 ng/L [facility] Interpretation and review of laboratory results Normal [facility] Interpretation and review of laboratory results Abnormal [facility] Source Of Oxygen None (Room Air) [facility] Interpretation and review of laboratory results Normal [facility] Troponin HS Serial Baseline 3 ng/L NINF - 14 ng/L [facility] Interpretation and review of laboratory results Abnormal [facility] Interpretation and review of laboratory results Normal [facility] SEDIMENTATION RATE, AUTOMATE Don 11-24-2024 SEDIMENTATION RATE, ERYTHROCYTE 45 mm/hr High 0-20 [facility] Comment on above: Performed By: #### L [id number], [id number] ####Registration Coordinator: JESSY OWENS ([id number])[facility] ([facility])[address] [place] [address] URINE CULTUREon 11-24-2024 Bacteria identified Cx Nom (U) Normal [facility] Comment on above: Performed By: #### L [id number], [id number] ####Registration Coordinator: JESSY OWENS ([id number])[facility])[address] [place] [address] Urinalysis complete panel (U )on 11-24-2024 Bacteria LM.HPF (Urine sed) [#/Area] Few Abnormal Negative /HPF [facility] Bilirubin Ql (U) Negative Negative mg/dL [facility] Clarity (U) Turbid Abnormal Clear [facility] Color (U) Yellow Lt. Yellow [facility] Epithelial cells.squamous LM.HPF (Urine sed) [#/Area[facility] Gl[facility] Ql (U) Normal Normal (<70) mg/dL [facility] Hemoglobin Ql (U) 1.0 mg/dL Abnormal Negative [facility] ealth Hyaline casts Auto (Urine sed) [#/Area] Negative Negative /LPF [facility] Interpretation and review of laboratory results Abnormal [facility] Ketones (U) [Mass/Vol] Negative Negat go mg/dL [facility] Leukocyte esterase Test strip Ql (U) 500 Abnormal Negative William/uL [facility] Mucus LM.HPF (Urine sed) [#/Area] Few Negative /LPF [facility] Nitrite Ql (U) Negative Negative [facility] th pH (U) 5.5 [pH] 5.0 - 8.0 pH [facility] Protein (U) [Mass/Vol] 50 mg/dL Abnormal Negative [facility] RBC LM.HPF (Urine sed) [#/Area] 3-5 Abnormal [facility] Specific gravity (U) [Rel density] 1.013 1.005 - 1.030 [facility] Urobilinogen (U) [Mass/Vol] 3 mg/dL Abnormal Normal (0-1) [facility] WBC LM.HPF (Urine sed) [#/Area] 51-100 Abnormal [facility] Vital signsOrdered By: Luana Israel on 11-24-2024 Heart rate 62 /min bpm [facility] Work Phone: Vital signson 11-24-2024 Oxygen saturation in Venous blood 56.4 % [facility] XR Tibia and Fibula - left 2 Viewson 11-24-2024 [facility] EM[facility] RADIOLOGY [facility] Radiology Study observation (narrative) [facility] alth XR Tibia and Fibula - left 2 ViewsOrdered By: Joe Delgadillo on 11-24-2024 [facility] 36on 10-02-2024 36 Normal [facility] XR KNEE BILATERAL STANDINGOr dered By: Dieudonne Walton on 01-30-2021 Patient Name: MAXWELL COLLIER Diagnostic Radiology ACCESSION EXAM DATE/TIME PROCEDURE ORDERING PROVIDER [id number] 01/30/2021 13:26 EDT CR Knee Standing AP MD HINA, DIEUDONNE Ron Bilateral CPT code 95080 Reason For Exam (CR Knee Standing AP Bilateral) PAIN Report STANDING AP VIEW BILATERAL KNEES RIGHT KNEE SERIES CLINICAL INDICATION: Pain A single, PA flexed view of the bilateral knees was performed. Lateral and sunrise plain film views of the right knee were also obtained. COMPARISON: None FINDINGS: The PA flexed view of the bilateral knees demonstrates mild loss of joint space within the medial compartments of the left and right knees. There is mild degenerative spurring of the medial compartment and tibial spines bilaterally. No fracture or dislocation of the right knee is identified. Mild degenerative spurring of the patellofemoral compartment is noted. There is no joint effusion on the lateral view. Soft tissues are unremarkable. IMPRESSION: No fracture or dislocation of the right knee is identified. Mild degenerative changes of the bilateral knees. Report Dictated on --- Final --- Dictating Physician: MD DELGADILLO JONATHAN R Signed Date and Time: 01/30/2021 2:37 pm Signed by: MD DELGADILLO JONATHAN R Transcribed Date and Time: 01/30/2021 2:39 [facility] Work Phone: [facility], [facility] Incoming Radiology Results From [facility] - 01/30/2021 2:39 PM EDT Patient Name: MAXWELL COLLIER Diagnostic Radiology ACCESSION EXAM DATE/TIME PROCEDURE ORDERING PROVIDER [id number] 01/30/2021 13:26 EDT CR Knee Standing AP MD HINA, DIEUDONNE Ron Bilateral CPT code 53846 Reason For Exam (CR Knee Standing AP Bilateral) PAIN Report STANDING AP VIEW BILATERAL KNEES RIGHT KNEE SERIES CLINICAL INDICATION: Pain A single, PA flexed view of the bilateral knees was performed. Lateral and sunrise plain film views of the right knee were also obtained. COMPARISON: None FINDINGS: The PA flexed view of the bilateral knees demonstrates mild loss of joint space within the medial compartments of the left and right knees. There is mild degenerative spurring of the medial compartment and tibial spines bilaterally. No fracture or dislocation of the right knee is identified. Mild degenerative spurring of the patellofemoral compartment is noted. There is no joint effusion on the lateral view. Soft tissues are unremarkable. IMPRESSION: No fracture or dislocation of the right knee is identified. Mild degenerative changes of the bilateral knees. Report Dictated on --- Final --- Dictating Physician: MD DELGADILLO JONATHAN R Signed Date and Time: 01/30/2021 2:37 pm Signed by: MD DELGADILLO JONATHAN R Transcribed Date and Time: 01/30/2021 2:39 [facility] Phone[facility] Work Phone: XR KNEE RIGHT (1-2 VIEWS)Ord ered By: Dieudonne Walton on 01-30-2021 Patient Name: MAXWELL COLLIER Diagnostic Radiology ACCESSION EXAM DATE/TIME PROCEDURE ORDERING PROVIDER [id number] 01/30/2021 13:26 EDT CR Knee 1 or 2 Views MD WALTON DONALD L. Right CPT code 05713 Reason For Exam (CR Knee 1 or 2 Views Right) PAIN Report STANDING AP VIEW BILATERAL KNEES RIGHT KNEE SERIES CLINICAL INDICATION: Pain A single, PA flexed view of the bilateral knees was performed. Lateral and sunrise plain film views of the right knee were also obtained. COMPARISON: None FINDINGS: The PA flexed view of the bilateral knees demonstrates mild loss of joint space within the medial compartments of the left and right knees. There is mild degenerative spurring of the medial compartment and tibial spines bilaterally. No fracture or dislocation of the right knee is identified. Mild degenerative spurring of the patellofemoral compartment is noted. There is no joint effusion on the lateral view. Soft tissues are unremarkable. IMPRESSION: No fracture or dislocation of the right knee is identified. Mild degenerative changes of the bilateral knees. Report Dictated on --- Final --- Dictating Physician: MD DELGADILLO JONATHAN R Signed Date and Time: 01/30/2021 2:37 pm Signed by: MD DELGADILLO JONATHAN R Transcribed Date and Time: 01/30/2021 2:39 [facility] Work Phone: [facility] Results From [facility] - 01/30/2021 2:39 PM EDT Patient Name: MAXWELL COLLIER Diagnostic Radiology ACCESSION EXAM DATE/TIME PROCEDURE ORDERING PROVIDER [id number] 01/30/2021 13:26 EDT CR Knee 1 or 2 Views MD WALTON DONALD L. Right CPT code 65746 Reason For Exam (CR Knee 1 or 2 Views Right) PAIN Report STANDING AP VIEW BILATERAL KNEES RIGHT KNEE SERIES CLINICAL INDICATION: Pain A single, PA flexed view of the bilateral knees was performed. Lateral and sunrise plain film views of the right knee were also obtained. COMPARISON: None FINDINGS: The PA flexed view of the bilateral knees demonstrates mild loss of joint space within the medial compartments of the left and right knees. There is mild degenerative spurring of the medial compartment and tibial spines bilaterally. No fracture or dislocation of the right knee is identified. Mild degenerative spurring of the patellofemoral compartment is noted. There is no joint effusion on the lateral view. Soft tissues are unremarkable. IMPRESSION: No fracture or dislocation of the right knee is identified. Mild degenerative changes of the bilateral knees. Report Dictated on --- Final --- Dictating Physician: MD DELGADILLO JONATHAN R Signed Date and Time: 01/30/2021 2:37 pm Signed by: MD DELGADILLO JONATHAN R Transcribed Date and Time: 01/30/2021 2:39 [facility] Work Phone: [facility] Work Phone: Basic Metabolic Panelon - Calcium 10.1 mg/dL Normal 8.4-10.2 [facility] Comment on above: Performed By: #### H MIRNA BMP3 ####[facility] [address] [place], [place] Glucose mass conc 214 mg/dL High 70-100 [facility] Comment on above: Performed By: #### H MIRNA BMP3 ####[facility] [address] [place], [place] Anion gap 13 Normal [facility] Comment on above: Performed By: #### H EMDF BMP3 ####[facility] [place] CO2 25 mmol/L Normal 22-30 [facility] Comment on above: Performed By: #### H EMDF, BMP3 ####[facility] [place] Creatinine 0.66 mg/dL Normal 0.52-1.25 [facility] Comment on above: Performed By: #### H EMDF, BMP3 ####[facility] [id number] [place], [place] eGFR (black) mL/min/{1.73_m2} Normal >60 [facility] Comment on above: Performed By: #### H JOSAFATF, BMP3 ####[address] eGFR (non-black) mL/min/{1.73_m2} Normal >60 [facility] Comment on above: Result Comment: Sour ce- MDRD equation with creatinine calibration to IDMS(NKDEP) eGFR not recommended for drug dose adjustment Performed By: #### H MIRNA BMP3 ####[address] Urea nitrogen 12 mg/dL Normal 7-20 [facility] Comment on above: Performed By: #### H MIRNA BMP3 ####[address] Chloride 103 mmol/L Normal 98-107 [facility] Comment on above: Performed By: #### H MIRNA, BMP3 ####[facility] [address] Potassium molar conc 4.0 mmol/L Normal 3.5-5.1 [facility] Comment on above: Performed By: #### H MIRNA, BMP3 ####[address] Sodium 141 mmol/L Normal 137-145 [facility] Comment on above: Performed By: #### H EMDF, BMP3 ####[facility] [address] Hemogram w/ Autodiffon 12-02 Abs Baso Cnt 0.0 10*3/uL Normal 0.0-0.2 [facility] Comment on above: Performed By: #### H EMDF, BMP3 ####[address] Basophils/100 WBC Auto (Bld) 0.1 % Normal 0.0-2.0 [facility] Comment on above: Performed By: #### H EMDJennifer BMP3 ####[id number] [place], [place] Eosinophils 0.0 10*3/uL Normal 0.0-0.5 [facility] Comment on above: Performed By: #### H EMDJennifer BMP3 ####[address] Eosinophils/100 leukocytes 0.1 % Low 1.0-6.0 [facility] Comment on above: Performed By: #### H MIRNA BMP3 ####[address] Erythrocyte distribution width Auto Ratio (RBC) 13.7 % Normal 11.5-14.5 [facility] Comment on above: Performed By: #### H MIRNA BMP3 ####[address] Erythrocytes (RBC) 4.52 10*6/uL Normal 3.80-5.20 [facility] Comment on above: Performed By: #### H MIRNA BMP3 ####[address] Granulocytes/100 WBC (Bld) 93.2 % High 40.0-80.0 [facility] Comment on above: Performed By: #### H MIRNA BMP3 ####[address] Hematocrit (HCT) 44.9 % Normal 35.0-47.0 [facility] Comment on above: Performed By: #### H EMDJennifer BMP3 ####[address] Hemoglobin mass conc (Bld) 15.6 g/dL Normal 11.7-16.0 [facility] Comment on above: Performed By: #### H EMDF, BMP3 ####[address] Lymphocytes 0.6 10*3/uL Low 1.0-4.3 [facility] Comment on above: Performed By: #### H EMDJennifer BMP3 ####[address] Lymphocytes/100 leukocytes 6.2 % Low 20.0-40.0 [facility] Comment on above: Performed By: #### H EMDF, BMP3 ####[address] MCH 34.5 pg High 26.0-34.0 [facility] Comment on above: Performed By: #### H EMDJennifer BMP3 ####[address] MCHC mass conc (RBC) 34.8 % Normal 32.0-36.0 [facility] Comment on above: Performed By: #### H EMDF BMP3 ####[address] MCV 99.3 fL High 79.0-98.0 [facility] Comment on above: Performed By: #### H MIRNA BMP3 ####[address] Monocytes 0.0 10*3/uL Normal 0.0-0.8 [facility] Comment on above: Performed By: #### H EMDF, BMP3 ####[address] Monocytes/100 leukocytes 0.4 % Low 2.0-10.0 [facility] Comment on above: Performed By: #### H EMDF, BMP3 ####[address] Neutrophils 8.5 10*3/uL High 1.8-7.0 [facility] Comment on above: Performed By: #### H EMDF, BMP3 ####[address] Platelet mean volume (PMV) 8.3 fL Normal 7.4-10.4 [facility] Comment on above: Performed By: #### H EMDF, BMP3 ####[facility] [address] [place] [address] Platelets 186 10*3/uL Normal 140-440 [facility] Comment on above: Performed By: #### H EMDF, BMP3 ####[facility] [place] [address] WBC (Leukocytes) 9.1 10*3/uL Normal 3.6-10.7 [facility] Comment on above: Performed By: #### H EMDF, BMP3 ####[facility] [place] [address] CNCOon 08-24-2017 CNCO Letter Prosper Ann MD[address] [facility]ITAL[facility]ari [place], [place] [address]Aaler: [phone]: [phone]: 08/24/2017Provider: Reji Lovell,We have received a referral from your Primary Care Physician requesting us tocontact you to schedule a Screening Colonoscopy for prevention and earlydetection of colon cancer. Our office has tried to contact you withoutsuccess.Colon Cancer is the third leading cause of cancer related deaths. One hundredfifty thousand Americans are diagnosed with colon cancer annually, and thiscondition is responsible for 50,000 deaths per year. Hence, this disease hassignificant mortality and health consequences.Colonos copy is an easy and safe test to remove pre-cancerous growth (polyps)from the colon, preventing and detecting colon cancer at an early stage thusimproving survival.Most insurances pay for Colonoscopy without any out pocket expense to thepatient. Colonoscopy is performed under deep sedation with the help of ananesthesia professional with zero pain/discomfort during the procedure.We urge you to please call our office at [phone], option 5 and we willassist you in scheduling your exam.Sincerely,Cullen Ann MD Normal [facility] Vital Signs Date Time Vital Sign Value Performing Clinician Faci lity 12-03-2024 08:07-0400 Body temperature 97.3 [degF] Joe Schulte MD Work Phone: [facility] 12-03-2024 08:07-0400 Diastolic blood pressure 79 mm[Hg] Joe Schulte MD Work Phone: [facility] 12-03-2024 08:07-0400 Heart rate 84 /min Joe Schulte MD Work Phone: [facility] 12-03-2024 08:07-0400 Respiratory rate 16 /min Joe Schulte MD Work Phone: [facility] 12-03-2024 08:07-0400 SaO2% (BldA) [Mass fraction] 98 % Joe Schulte MD Work Phone: [facility] 12-03-2024 08:07-0400 Systolic blood pressure 132 mm[Hg] Joe pugh MD Work Phone: [facility] 12-02-2024 05:49-0400 Body mass index (BMI) [Ratio] 46.45 kg/m2 Joe Schulte MD Work Phone: [facility] 12-02-2024 05:49-0400 Body weight 130.54 kg Joe Schulte MD Work Phone: [facility] 11-29-2024 10:03-0400 Body height 167.6 cm Joe Schulte MD Work Phone: [facility] 11-25-2024 17:02-0400 SaO2% (BldA) [Mass fraction] 97.2 % Joe Schulte MD Work Phone: [facility] 10-16-2022 13:04-0400 Body height 167.6 cm Shyam Kirkland MD Work Phone: [facility] 10-16-2022 13:04-0400 Body mass index (BMI) [Ratio] 46.16 kg/m2 Shyam Kirkland MD Work Phone: [facility] 10-16-2022 13:04-0400 Body weight 129.73 kg Shyam Kirkland MD Work Phone: [facility] Encounters Encounter Date Encounter Type Care Provider Facility Start: 01-23-2025 End: 01-23-2025 ambulatory Juan R PRECIADO -[facility] [address] Start: 01-23-2025 End: 01-23-2025 Departed Referred Juan R Lee -[facility] [address] Start: 01-23-2025 End: 01-23-2025 ambulatory Juan R PRECIADO Facility:[facility] Start: 12-19-2024 End: 12-19-2024 ambulatory Juan R PRECIADO -[facility] - [address] Start: 12-19-2024 End: 12-19-2024 Departed Referred Abraham Abbott -[facility] - [address] Start: 12-19-2024 Registered Referred Abraham Abbott -[facility] [address] Start: 12-19-2024 End: 12-19-2024 ambulatory Abraham PRECIADO Facility:[facility] Start: 12-07-2024 ambulatory Juan R PRECIADO Faci lity:[facility] Start: 12-07-2024 Registered Referred Juan R Lee - [facility] - [address] Start: 12-05-2024 ambulatory Juan R PRECIADO Faci lity:[facility] Start: 12-05-2024 Registered Referred Juan R Lee - [facility] - [address] Start: 11-24-2024 End: 12-03-2024 Evaluation and management of inpatient Joe Schulte MD Work Phone: [facility] [address] Start: 10-02-2024 End: 10-02-2024 ambulatory Gabby Arvizu RN [facility] Start: 10-02-2024 End: 10-02-2024 Patient encounter procedure Gabby Arvizu RN [facility] Start: 10-28-2022 ambulatory uJan CURRY Work Phone: [facility] Start: 10-27-2022 Telephone encounter Shyam ballesteros MD Work Phone: [facility] Comment on above: Surgery Scheduling ( RTKA 11/17) Start: 10-16-2022 End: 10-16-2022 Office outpatient new 45 minutes Shyam Kirkland MD Work Phone: [facility] Comment on above: Primary osteoarthrit is of right knee Start: 04-23-2022 ambulatory Aishwarya Rooney [facility] Start: 10-09-2021 ambulatory Aishwarya Rooney [facility] Start: 01-30-2021 End: 01-30-2021 Subsequent hospital visit by physician Dieudonne Walton MD Work Phone: [facility] Start: 12-02-2017 Ambulatory UNKNOWN PROVIDER [facility] Procedures Date Procedure Procedure Detail Performing Clinician Start: 01-23-2025 Urine culture Juan R PRECIADO Start: 01-23-2025 Urnls dip stick/tabl et reagent auto microscopy Juan R PRECIADO Start: 12-19-2024 Clostridium difficil e detection Juan R PRE[facility] Start: 12-03-2024 Glucose quantitative blood xcpt reagent strip Justo BlandWilmar Tejada DO Work Phone: Start: 12-03-2024 Glucose quantitative blood xcpt reagent strip Justo TWilmar NicholasTejada DO Work Phone: Start: 12-03-2024 Calcium ionized Olive Berrodin-Marsha [employer] SALES REPRESENTATIVE - SOFTWARE SALES CONSULTANT Work Phone: Start: 12-03-2024 Basic metabolic pane l calcium total Justo TWilmar NicholasTejada DO Work Phone: Start: 12-02-2024 Glucose quantitative blood xcpt reagent strip Justo T. Tejada DO Work Phone: Start: 12-02-2024 Glucose quantitative blood xcpt reagent strip Justo TWilmar Tejada DO Work Phone: Start: 12-02-2024 Glucose quantitative blood xcpt reagent strip Justo T. Tejada DO Work Phone: Start: 12-02-2024 Glucose quantitative blood xcpt reagent strip Justo T. Tejada DO Work Phone: Start: 12-02-2024 Calcium ionized Olive Berrodin-Marsha [employer] SALES REPRESENTATIVE - SOFTWARE SALES CONSULTANT Work Phone: Start: 12-01-2024 End: 12-01-2024 Basic metabolic panel calcium total Justo Tejada DO Work Phone: Start: 12-01-2024 Glucose quantitative blood xcpt reagent strip Justo Tejada DO Work Phone: Start: 12-01-2024 Basic metabolic pane l calcium total Ac Reyes MD Work Phone: Start: 12-01-2024 Glucose quantitative blood xcpt reagent strip Justo Tejada DO Work Phone: Start: 12-01-2024 Glucose quantitative blood xcpt reagent strip Justo Tejada DO Work Phone: Start: 12-01-2024 End: 12-01-2024 Calcium ionized Olive Berrodin-Pin ter [employer] SALES REPRESENTATIVE - SOFTWARE SALES CONSULTANT Work Phone: Start: 11-30-2024 Basic metabolic pane l calcium total Ac Reyes MD Work Phone: Start: 11-30-2024 Basic metabolic pane l calcium total Ac Reyes MD Work Phone: Start: 11-30-2024 Basic metabolic pane l calcium total Sonia M Bica [employer] SALES REPRESENTATIVE - SOFTWARE SALES CONSULTANT Work Phone: Start: 11-30-2024 Manual Differential panel - Blood Maxwell Gonzalesmonroe Devi DO Work Phone: Start: 11-29-2024 Basic metabolic pane l calcium total Sonia M Bica [employer] SALES REPRESENTATIVE - SOFTWARE SALES CONSULTANT Work Phone: Start: 11-29-2024 Basic metabolic pane l calcium total Sonia M Bica [employer] SALES REPRESENTATIVE - SOFTWARE SALES CONSULTANT Work Phone: Start: 11-29-2024 Manual Differential panel - Blood Maxwell Camposon DO Work Phone: Start: 11-28-2024 Basic metabolic pane l calcium total Sonia M Bica [employer] SALES REPRESENTATIVE - SOFTWARE SALES CONSULTANT Work Phone: Start: 11-28-2024 Basic metabolic pane l calcium total Sonia Marin Bica [employer] SALES REPRESENTATIVE - SOFTWARE SALES CONSULTANT Work Phone: Start: 11-28-[address] ldh Olive [address] W[employer] SALES REPRESENTATIVE - SOFTWARE SALES CONSULTANT Work Phone: Start: 11-28-2024 Bacteria identified in Blood by Culture Sonia Marin Bica [employer] SALES REPRESENTATIVE - SOFTWARE SALES CONSULTANT Work Phone: Start: 11-28-2024 Basic metabolic pane l calcium total Sonia Marin Bica [employer] SALES REPRESENTATIVE - SOFTWARE SALES CONSULTANT Work Phone: Start: 11-28-2024 Drug screen quantita tive vancomycin Maxwell Devi DO Work Phone: Start: 11-28-2024 Manual Differential panel - Blood Maxwell Quintanillarison DO Work Phone: Start: 11-27-2024 Basic metabolic pane l calcium total Sonia Marin Bica [employer] SALES REPRESENTATIVE - SOFTWARE SALES CONSULTANT Work Phone: Start: 11-27-2024 Blood count hematocrit Sonia Marin Bicmedina [employer] SALES REPRESENTATIVE - SOFTWARE SALES CONSULTANT Work Phone: Start: 11-27-2024 Compatibility each u nit electronic Sonia Marin Bica [employer] SALES REPRESENTATIVE - SOFTWARE SALES CONSULTANT Work Phone: Start: 11-27-2024 End: 11-27-2024 TRANSFUSE RED BLOOD CELLS Sonia Marin Bi ca [employer] SALES REPRESENTATIVE - SOFTWARE SALES CONSULTANT Work Phone: Start: 11-27-2024 Basic metabolic pane l calcium total Sonia Marin Bica [employer] SALES REPRESENTATIVE - SOFTWARE SALES CONSULTANT Work Phone: Start: 11-27-2024 Antibody screen [facility] Comment on above: Performed By: #### L [id number] ####Registration Coordinator: JESSY OWENS ([id number])[facility] ([facility])[address] [place] [address] Start: 11-27-2024 Blood typing serologic abo Sonia Marin Bica [employer] SALES REPRESENTATIVE - SOFTWARE SALES CONSULTANT Work Phone: Start: 11-27-2024 Comprehensive metabo lic panel Sonia Santos [employer] SALES REPRESENTATIVE - SOFTWARE SALES CONSULTANT Work Phone: Start: 11-27-2024 Manual Differential panel - Blood Maxwell Devi DO Work Phone: Start: 11-26-2024 End: 11-26-2024 Basic metabolic panel calcium total Sonia Santos W[employer] SALES REPRESENTATIVE - SOFTWARE SALES CONSULTANT Work Phone: Start: 11-26-2024 Drug screen quantita tive vancomycin Maxwell Devi DO Work Phone: Start: 11-26-2024 Ecg routine ecg w/le ast 12 lds trcg only w/o i&r Miah Raines MD Work Phone: Start: 11-26-2024 Comprehensive metabo lic panel Miah Raines MD Work Phone: Start: 11-25-2024 Basic metabolic pane l calcium total Sonia Santos W[employer] SALES REPRESENTATIVE - SOFTWARE SALES CONSULTANT Work Phone: Start: 11-25-2024 Insj non-tunneled ce ntral venous cath age 7 yr/> Sonia Santos W[employer] SALES REPRESENTATIVE - SOFTWARE SALES CONSULTANT Work Phone: Start: 11-25-2024 Basic metabolic pane l calcium total Sonia Marin Bicmedina W[employer] SALES REPRESENTATIVE - SOFTWARE SALES CONSULTANT Work Phone: Start: 11-25-2024 Ecg routine ecg w/le ast 12 lds trcg only w/o i&r Sonia Santos [employer] SALES REPRESENTATIVE - SOFTWARE SALES CONSULTANT Work Phone: Start: 11-25-2024 Blood gases any combination ph pco2 po2 co2 hco3 Sonia Marin Bicmedina [employer] SALES REPRESENTATIVE - SOFTWARE SALES CONSULTANT Work Phone: Start: 11-25-2024 Radiologic exam ches t single view Sonia Santos [employer] SALES REPRESENTATIVE - SOFTWARE SALES CONSULTANT Work Phone: Start: 11-25-2024 Artl cathj/cannulj mntr/transfusion spx prq Sonia Santos [employer] SALES REPRESENTATIVE - SOFTWARE SALES CONSULTANT Work Phone: Start: 11-25-2024 Basic metabolic pane l calcium total Sonia Santos W[employer] SALES REPRESENTATIVE - SOFTWARE SALES CONSULTANT Work Phone: Start: 11-25-2024 Dup-scan xtr veins complete bilateral study oSnia Santos W[employer] SALES REPRESENTATIVE - SOFTWARE SALES CONSULTANT Work Phone: Start: 11-25-2024 TTE w or wo fol wcon,Doppler Maxwell Devi DO Work Phone: Start: 11-25-2024 Us abdominal real ti me w/image limited Miah Raines MD Work Phone: Start: 11-25-2024 Basic metabolic pane l calcium total Maxwell Devi DO Work Phone: Start: 11-24-2024 Culture bacterial quanttative colony count urine Maxwell Devi DO Work Phone: Start: 11-24-2024 Blood gases any combination ph pco2 po2 co2 hco3 Jeb Hickman DO Work Phone: Start: 11-24-2024 Creatine kinase total A garcia Devi DO Work Phone: Start: 11-24-2024 Radiologic examinati on tibia & fibula 2 views David S Mario DO Work Phone: Start: 11-24-2024 AEROBIC AND ANAEROBI C CULTURE WITH STAIN David S Mario DO Work Phone: Start: 11-24-2024 Culture bacterial an y source anaerobic iso&id David S Salh DO Work Phone: Start: 11-24-2024 Bacteria identified in Blood by Culture David S Salh DO Work Phone: Start: 11-24-2024 C-reactive protein Anga d S Salh DO Work Phone: Start: 11-24-2024 Comprehensive metabo lic panel David S Salh DO Work Phone: Start: 11-24-2024 HC CUL TYP ID BLD PT HGN 6+ TRGT David S Powered DO Work Phone: Start: 11-24-2024 Ecg routine ecg w/le ast 12 lds trcg only w/o i&r David S [employer] DO Work Phone: Start: 01-30-2021 Radiologic examinati on knee 1/2 views Dieudonne Walton MD Work Phone: Plan of Treatment Date Care Activity Detail Author Start: 2037 RSV Immunization for Adults (1 - 1-dose 75+ series) RSV Immunization for Adults (1 - 1-dose 75+ series) [facility] Start: 12-03-2025 [facility] Start: 11-24-2025 Hemoglobin A1c measurement [facility] Start: 11-03-2025 Diabetes mellitus screening Diabetes Screening [facility] Start: 05-31-2025 [facility] Start: 03-20-2025 [facility] Start: 03-20-2024 COVID-19 Vaccine ( season) COVID-19 Vaccine ( season) [facility] Start: 03-20-2024 Influenza vaccination Influenza Vacc ine (#1) [facility] Start: 03-20-2024 [facility] Start: 01-31-2024 [facility] Start: 03-20-2023 Influenza vaccination Influenz a Vaccine (Season Ended) [facility] Start: 11-17-2022 End: 11-17-2022 Admission to same day surgery center 11/17/2022 Surgery Procedural Shyam Kirkland MD [address], [address] [place], [place] [id number] RIGHT TOTAL KNEE ARHTROPLASTY [12747 (CPT )] [facility] MAIN OR Comment on above: RIGHT TOTAL KNEE ARH TROPLASTY [10266 (CPT )] Start: 11-17-2022 End: 11-17-2022 Arthrp kne condyle&platu medial&lat compartments TOTAL KNEE REPLACEMENT Unilateral primary osteoarthritis, right knee 11/17/2022 8:30 AM EDT [facility] Operating Room Start: 11-17-2022 End: 11-17-2022 Cptr-asst surgical navigation image-less COMPUTER-ASSISTED SURGICAL NAVIGATIONAL PROCEDURE FOR MUSCULOSKELETAL PROCEDURES IMAGE-LESS Unilateral primary osteoarthritis, right knee 11/17/2022 8:30 AM EDT [facility] Operating Room Start: 11-17-2022 Subsequent hospital visit by physician 11/17/2022 Hospital Encounter Procedural Shyam Kirkland MD [address], [address] [place] [address] [facility] Start: 11-03-2022 End: 11-03-2022 Anesthesia consultation 11/03/2022 Anesthesia Event Procedural Magaly Jones PA [address] [place] [address] [facility] Start: 11-03-2022 End: 11-03-2022 Admission to establishment 11/03/2022 Pre-Admission Testing Pre-Admission Testing Shyam Kirkland MD [address], [address] [place] [address] [facility] Pre-Admit Testing Start: 2022 [facility] Start: 03-20-2022 Influenza vaccination Influenza Vacc ine (#1) [facility] Start: 03-20-2021 Influenza vaccination Flu vaccine (# 1) [facility] Work Phone: Start: 03-15-2021 COVID-19 Vaccine (2 - Moderna series) COVID-19 Vaccine (2 - Moderna series) [facility] Start: 12-02-2018 Creatinine measurement Creatinine mo nitoring [facility] Work Phone: Start: 12-02-2018 Potassium monitoring Potassium monit oring [facility] Work Phone: Start: 2012 Pneumococcal Vaccine : 50+ Years (1 of 1 - PCV) Pneumococcal Vaccine: 50+ Years (1 of 1 - PCV) [facility] Start: 2012 Screening for malign ant neoplasm of breast Breast cancer screen [facility] Work Phone: Start: 2012 Shingles Vaccine (1 of 2) Shingles Vaccine (1 of 2) [facility] Work Phone: Start: 2012 Zoster Vaccines (1 o f 2) Zoster Vaccines (1 of 2) [facility] Start: 2012 [facility] Start: 2007 Screening for malign ant neoplasm of colon Colon cancer screen colonoscopy [facility] Work Phone: Start: 2002 Diabetes screen Diabetes screen [facility] Work Phone: Start: 2002 Lipid panel [facility] Work Phone: Start: 2002 Screening for malign ant neoplasm of breast [facility] Start: 1992 Screening for malign ant neoplasm of cervix [facility] Start: 1983 Screening for malign ant neoplasm of cervix [facility] Start: 1981 DTaP/Tdap/Td vaccine (1 - Tdap) DTaP/Tdap/Td vaccine (1 - Tdap) [facility] Work Phone: Start: 1981 DTaP/Tdap/Td Vaccine s (1 - Tdap) DTaP/Tdap/Td Vaccines (1 - Tdap) [facility] Start: 1980 Hepatitis C screening [facility] Start: 1980 [facility] Start: 1977 HIV screening HIV screen [facility] Work Phone: Start: 1974 COVID-19 Vaccine (1) COVID-19 Vaccin e (1) [facility] Work Phone: Start: 1974 Depression Screening Depression Scre ening [facility] Start: 1972 Diabetic foot examination [facility] Start: 1972 Glaucoma screening [facility] Start: 1972 Preventive dental service [facility] Start: 1963 MMR Vaccines (1 of 1 - Standard series) MMR Vaccines (1 of 1 - Standard series) [facility] Start: 1963 [facility] Start: 1962 Hepatitis B Vaccines (1 of 3 - 3-dose series) Hepatitis B Vaccines (1 of 3 - 3-dose series) [facility] Start: 1962 Hepatitis C screening Hepatitis C sc reen [facility] Work Phone: Start: 1962 HIV screening [facility] Start: 1962 Lipid panel [facility] Start: 1962 Screening for malign ant neoplasm of colon [facility] End: 11-25-2024 Peripheral blood smear [facility] Work Phone: End: 11-25-2024 Peripheral Blood Smear [facility] Peripheral blood smear [facility] Peripheral Blood Smear [facility] Payers Date Payer Category Payer Self-pay 2021 [employer] are - HMO [id number] 2021 Unknown 2021 Unknown [id number] 2021 Unknown ALLIED BENEFIT S [facility] ALLIED BENEFIT SYSTEM [id number] 2021-Present [address] [place] [address] [id number] 1962 Unknown [id number] 1962 Unknown [id number] Unknown [id number] Unknown [id number] Social History Date Type Detail Facility Start: 01-30-2021 Tobacco smoking status NHIS Former smoker [facility] Work Phone: Start: 01-30-2021 Tobacco use and exposure Former user [facility] Start: 01-30-2021 End: 11-26-2024 Alcohol intake Current drink[facility] of [facility] (finding) [facility] Work [facility]: Start: 12-02-2017 Tobacco Comment quit 10 years ago [facility] Work Phone: Start: 03-25-2017 Alcohol Comment occassional [facility]: Start: 1960 Sex Assigned At Not on file [facility] Work Phone: History of tobacco use Current smoker [facility] Start: 06-25-2022 History SDOH Alcohol Frequency 5 [facility] Start: 06-25-2022 Alcohol Comment daily [facility] Start: 10-06-2022 End: 11-03-2022 Exposure to SARS-CoV-2 (event) Not sure [facility] Start: 06-25-2022 End: 12-03-2024 History of Social function [facility] Start: 06-25-2022 End: 12-03-2024 Alcohol Use Disorder Identification Test - Consumption [AUDIT-C] [facility] How often to you hav e a drink containing alcohol? 4 or more times a week [facility] Average Number of Drinks Not on file [facility] [facility] Start: 11-03-2022 Alcohol Comment week ends [facility] Start: 02-17-2022 Sex Female (finding) [facility] Has the [employer], or [employer] threatened to shut off services in your home in past 12Mo No [facility] How often to you hav e a drink containing alcohol? 2-3 time sa week [facility] How many standard dr inks containing alcohol do you have on a typical day? 3 or 4 [facility] How often do you hav e 6 or more drinks on 1 occasion? Never [facility] (I/We) worried wheth er (my/our) food would run out before (I/we) got money to buy more. Never true [facility] Work Phone: Start: 1960 Sex Assigned At Female [facility] Functional Status Date Assessment Result Facility 11-24-2024 Total score [AUDIT-C] [facility] Clinical Notes 10-16-2022 to 12-03-2024 Justo Tejada, DO - 12/03/2024 12:42 PM EDTAlexander Mousetes, RN - 12/03/2024 12:37 PM EDTAlexander Mousetes, RN - 12/03/2024 11:32 AM EDTAlexander Mousetes, RN - 12/03/2024 10:57 AM EDT Note Date & Type Note Facility 12-03-2024 Hospital course Narrative Hospitalist Discharge Summary Maxwell Collier : 1960 Admit date: 11/24/2024 Discharge date: 12/03/2024 Admitting Physician: Miah Raines MD Primary Care Physician: Priscilla Llanes MD Visit Status: Inpatient Code Status: Full Code Acute, acute on chronic, unstable/uncontrolled chronic problems/diagnoses: Shock, likely hypovolemic and septic due to bacteroides LLE and buttocks wounds, E coli UTI Intermittent bradycardia Bilateral LE edema, negative for DVT HOGAN WILIAN with NAGMA, hypokalemia Macrocytic anemia, thrombocytopenia Malnutrition Depression/anxiety Staph epi blood culture - contaminant, 1/2 cultures and repeat negative Stable chronic problems affecting care, new non-acute diagnoses: Hx of DVT on xarelto - holding due to thrombocytopenia HTN Morbid obesity Medical History[1] Procedures: see notes Hospital Course: This is a 64 y/o female with a PMHX of HTN, peripheral venous insuffiencey, DVT on xarelto, obesity, HOGAN, and osteoarthritis. She presented to [facility] ED on 11/24/24 with complaints of increased pain and weakness which led to her being unable to ambulate at home. The patient recently retired due to poor mobility related to her OA in bilateral knees. Upon arrival to the ED the patient was alert and oriented x3, hypotensive, bradycardic, hypothermic, with O2 saturations >95% on RA. She was given IVF bolus and vasopressors were started. Blood, urine, and wound cultures (LLE) were obtained. The ICU team was consulted and the patient was admitted to the MICU for continued management. Surgery was consulted for possible wound debridement. Pt required levo and vaso. With ongoing hyokalemia which was replaced. Noted to have intermittent bradycardia and seen by cardiology. Urine cultures positive for E coli. Maintained on zosyn through 12/01 for 7 day course. Weaned off pressors. Anemia noted and transfused 1U PRBC on 11/27. Pt stable and transferred to the [facility] 11/30 under the hospitalist service. Pt/OT recommending SNF and pt agreeable awaiting auth which was obtained on 12/03. K improved and stable and pt discharged to SNF in improved condition. See discharge diagnoses list above and medication adjustments below in med rec.The patient is discharged in improved and stable condition. Consults: INPATIENT CONSULT TO WOUND CARE PROVIDERS INPATIENT CONSULT TO WOUND CARE PROVIDERS IP CONSULT TO WOUND PREVENTION IP CONSULT TO GENERAL SURGERY IP CONSULT TO CARDIOLOGY IP CONSULT TO DIETITIAN IP CONSULT TO PSYCHIATRY Discharge Instructions: Diet: Dietary Orders (From admission, onward) Start Ordered 11/29/24 0954 Supplement:Lunch; Snyder Jair Until discontinued Question Answer Comment Frequency Lunch Select supplement: Snyder Jair Comment Please mix for pt in diet sprite. 11/29/24 0954 11/24/24 221 Adult diet Regular Diet effective now Question: Diet type Answer: Regular 11/24/242211 Activity: as tolerated Recommended Outpatient Tests: Disposition: Patient discharged in stable condition to SNF. Greater than 50 minutes spent discharging the patient and coming up with patient discharge plan. Vitals: BP 132/79 Pulse 84 Temp 36.3 C (97.3 F) (Temporal) Resp 16 Ht 5' 6" (1.676 m) Wt 287 lb 12.8 oz (131 kg) SpO2 98% BMI 46.45 kg/m Pulse Ox: SpO2 Av % Min: 96 % Max: 98 % Supplemental O2: GENERAL: Lying in bed comfortably, awake and alert HEENT: normocephalic, non-traumatic, MMM NECK: supple, trachea midline, RIJ CVC HEART: RRR, normal S1 and S2 LUNGS: good breath sounds bilaterally, no wheeze, no rhonchi, no rales ABD: soft, obese SKIN: warm, dry, erythema and edema LE with open and healing wounds, sacral/buttocks wounds PSYCH: appropriate affect LABS: Recent Labs 12/01/24 1330 12/01/24 2043 12/03/24 0122 NA 140 140 139 K 2.9* 3.4* 3.4* CL 108* 108* 107 CO2 BUN 11 14 13 CREATININE 0.53* 0.53* 0.51* GLUCOSE 98 100 82 CALCIUM 8.5* 8.8 9.3 Recent Labs 12/01/24 0302 12/02/24 0439 12/03/24 0122 WBC 6.9 6.7 8.9 RBC 2.24* 2.40* 2.51* HGB 7.6* 8.0* 8.4* HCT 23.1* 24.8* 25.8* MCV 103.1* 103.3* 102.8* MCH 33.9 33.3 33.5 MCHC 32.9 32.3 32.6 RDW 16.6* 16.4* 16.6* PLT 60* 70* 112* MPV 10.9 10.7 10.6 Discharge Medications: Medication List START taking these medications buPROPion SR 100 MG 12 hr tablet Commonly known as: Wellbutrin SR Take 1 tablet (100 mg) by mouth 2 times daily. Do not crush, chew, or split. miconazole 2 % powder Commonly known as: Micotin Apply topically 2 times daily. pantoprazole 40 MG EC tablet Commonly known as: ProtoNix Take 1 tablet (40 mg) by mouth daily. Do not crush, chew, or split. CONTINUE taking these medications folic acid 1 MG tablet Commonly known as: Folvite STOP taking these medications amLODIPine 10 MG tablet Commonly known as: Norvasc carvedilol 6.25 MG tablet Commonly known as: Coreg famotidine 20 MG tablet Commonly known as: Pepcid hydroCHLOROthiazide 25 MG tablet Commonly known as: HYDRODiuril potassium chloride ER 10 MEQ ER capsule Commonly known as: Micro-K traMADol 50 MG tablet Commonly known as: Ultram Xarelto 20 MG tablet Generic drug: rivaroxaban Where to Get Your Medications Information about where to get these medications is not yet available Ask your nurse or doctor about these medications buPROPion SR 100 MG 12 hr tablet miconazole 2 % powder pantoprazole 40 MG EC tablet Recommended Follow-up: [facility] [address] [facility] [id number] Priscilla Llanes MD [address] [facility] [address] Complexity of Follow up: [] Moderate Complexity: follow up within 7-14 calendar days (83927) [x] Severe Complexity: follow up within 7 calendar days (45948) Follow up Testing, Pending results or Referrals at Transitional Care Visit: [x] yes [] no Instructions to MA: Please call patient on day after discharge (must document patient contacted within 2 business days of discharge). Follow up questions for MA: 1. Did you get medications filled and taking them as instructed from discharge? 2. Are you following your discharge instructions from your hospital stay? 3. Please confirm patient is scheduled for a follow up appointment within the above time frame. Signed: Justo Tejada DO Division of Hospitalist Medicine [facility] 12/03/2024, 1:24 PM [1] Past Medical History: Diagnosis Date Blood clot in vein bilateral legs Hypertension Post-thrombotic syndrome Venous ulcer (CMS/HCC) (HCC) left leg documented in this encounter [facility] 12-03-2024 Note [facility] 12-03-2024 Nurse Note Pt discharged at this time. All belongings were collected and sent with patient. Pt transferred to [facility] without issue. Report also called to [facility] ([facility]) with all questions answered. Patient has all home medications in bag for discharged. Nothing remains in med cabinet. MELBA completed at this time. Attempted to call report. Was told that nurse is busy. Awaiting call back. Wound care to bilateral buttocks preformed at this time. Pt tolerated well. documented in this encounter [facility] 12-03-2024 Miscellaneous Notes Patient Choice Patient Name: MAXWELL COLLIER Date of : 1960 All Providers Sent Referral Name: [facility] CP[facility] Member Phone: [phone] Address: [address] [place] [address] [facility]: [phone] Address: [address] [place] [address] Name: [facility] Phone: [phone] Address: [address] [place] [address] Name: [facility] Phone: [phone] Address: [address] [place] [address] Name: Risa lew [place] Phone: [phone] Address: [address] [facility], [address] [place] [address] Care Management Progress Note 12/03/24 0950 Rapid Rounds Attendance Field 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 Stating they rec'd call from SNF that authorization was obtained. Checked Care port and found msg from Fadia Umer from [facility] stating had left msg re: auth and asked if the plan is to dc today. Msg to [facility] DO; informed of auth to SNF and if medically ready for dc. He responded after seeing patient, DC order entered, MELBA completed. Transport in will call; edited time to 12 noon. Chat msg to RN; Ariel Marin who agreed to notify patient and spouse of DC time. Msg to [facility] via Care port of time of transport and referral updated and sent. Length of Stay (Days): 9 GMLOS: 4.9 Pt slept through the night. Refused a few turns stated that it hurt her buttocks, prn pain med given with relief. Call light within reach, will cont to monitor. Problem: Urinary Incontinence Goal: Perineal skin integrity is maintained or improved Outcome: Not Progressing Problem: Potential for Compromised Skin Integrity Goal: Skin Integrity is Maintained or Improved Outcome: Progressing Problem: Problem Interventions Goal: Assess Nutritional Intake Outcome: Progressing Problem: Urinary Incontinence Goal: Perineal skin integrity is maintained or improved Outcome: Not Progressing 7000 completed in [facility] per TCC request. Facility notified via careport. Transport requested in Roundtrip in will call to [facility] per TCC. Care Management Progress Note [facility] not able to accept d/t pt's specific insurance plan. [facility] [place] able to accept- pt/ prefer facility in [place] as it is close to their home. Facility to submit for auth. Spoke with Justin- agreeable to plan. MELBA complete and MEDICAL ASSISTANT PRN placed pt in round trip under will call for possible late/weekend discharge. Facility updated and provided with 4N phone number for late/weekend discharge. Length of Stay (Days): 8 GMLOS: 4.9 Referral placed to SNF 1. [facility] 2. [facility]. [facility]. [facility]. [facility]. Await review and response regarding ability to accept. TCC notified. Care Management Progress Note Pt transferred from T3 for continued care. IV rocephin tx ending today. K+ level not avail today- yesterday was 2.3. Remains on IV solucortef. PT recommending SNF. Called Justin- introduced self and role. Discussed discharge plan and need for SNF choices- obtained [facility] choice, then [facility], [facility] and [facility] Will have [facility] send referrals . Length of Stay (Days): 7 GMLOS: 4.9 Problem: Knowledge Deficit Goal: Patient/family/caregiver demonstrates understanding of disease process, treatment plan, medications, and discharge instructions Outcome: Progressing Problem: Potential for Compromised Skin Integrity Goal: Skin Integrity is Maintained or Improved Outcome: Not Progressing Problem: Urinary Incontinence Goal: Perineal skin integrity is maintained or improved Outcome: Not Progressing Problem: Potential for Compromised Skin Integrity Goal: Skin Integrity is Maintained or Improved Outcome: Not Progressing Problem: Urinary Incontinence Goal: Perineal skin integrity is maintained or improved Outcome: Not Progressing 11/30/24 1445 Rapid Rounds Attendance Field Hockey And Lacrosse Coach Planned Discharge Disposition SNF Today we still await Administering IV medications;Clinical stability;Decorative Engraver recommendations (comment);Symptomatic control;Post-discharge arrangement completion (comment);Patient/caregiver facility choice;Facility pre-cert Patient remains on MICU awaiting floor transfer. IVAB/IV steroids. IV lasix this AM. Room Air. Regular diet. Patient/ still reviewing and discussing SNF choices. CM will continue to follow for their choices and make referrals as appropriate. Problem: Knowledge Deficit Goal: Patient/family/caregiver demonstrates understanding of disease process, treatment plan, medications, and discharge instructions Outcome: Progressing Problem: Potential for Compromised Skin Integrity Goal: Skin Integrity is Maintained or Improved Outcome: Progressing Goal: Nutritional status is improving Outcome: Progressing Problem: Urinary Incontinence Goal: Perineal skin integrity is maintained or improved Outcome: Progressing Problem: Problem Interventions Goal: Assess Nutritional Intake Outcome: Progressing Problem: Knowledge Deficit Goal: Patient/family/caregiver demonstrates understanding of disease process, treatment plan, medications, and discharge instructions Outcome: Progressing Problem: Potential for Compromised Skin Integrity Goal: Skin Integrity is Maintained or Improved Outcome: Progressing Goal: Nutritional status is improving Outcome: Progressing Problem: Urinary Incontinence Goal: Perineal skin integrity is maintained or improved Outcome: Progressing Problem: Problem Interventions Goal: Assess Nutritional Intake Outcome: Progressing Problem: Knowledge Deficit Goal: Patient/family/caregiver demonstrates understanding of disease process, treatment plan, medications, and discharge instructions Outcome: Progressing Problem: Potential for Compromised Skin Integrity Goal: Skin Integrity is Maintained or Improved Outcome: Progressing Goal: Nutritional status is improving Outcome: Progressing Problem: Urinary Incontinence Goal: Perineal skin integrity is maintained or improved Outcome: Progressing Problem: Problem Interventions Goal: Assess Nutritional Intake Outcome: Progressing ICU Transfer Checklist Transfer Med Reconciliation (resume home meds if able, convert to PO if able) Complete Antibiotics (name, indication, duration, convert to PO if able) Yes, addressed in today's progress note Steroid (indication, duration, convert to PO if able) None Anticipated Ingram Medications (ICU initiated) or Dose Changes and Indication No Permanently Discontinued Home Medications and Reason for medication contraindication No Delgado Catheter (please remove if able. Note: place DC order) Ordered to remove delgado Central Line (please remove if able. Note: place DC order) Yes, indication poor IV access attempted multiple peripheral Ivs unable to place Transfer Discussed with: Dr Hilario Crowley If additional questions for ICU team within 24 hours of ICU transfer, page [phone] for clarifications. Care Management Progress Note CM met with patient to discuss DC planning. PT recommends SNF. Patient agreeable. List generated via [employer] and given to patient for her to review with spouse. Patient seen by psychiatry for depression; started on Wellbutrin. IVAB and IV steroids ongoing. Room Air. Regular Diet. CM will continue to follow. Length of Stay (Days): 5 GMLOS: 4.9 Problem: Knowledge Deficit Goal: Patient/family/caregiver demonstrates understanding of disease process, treatment plan, medications, and discharge instructions Outcome: Progressing Problem: Potential for Compromised Skin Integrity Goal: Skin Integrity is Maintained or Improved Outcome: Progressing Goal: Nutritional status is improving Outcome: Progressing Problem: Urinary Incontinence Goal: Perineal skin integrity is maintained or improved Outcome: Progressing Problem: Problem Interventions Goal: Assess Nutritional Intake Outcome: Progressing Problem: Knowledge Deficit Goal: Patient/family/caregiver demonstrates understanding of disease process, treatment plan, medications, and discharge instructions Outcome: Progressing Problem: Potential for Compromised Skin Integrity Goal: Skin Integrity is Maintained or Improved Outcome: Progressing Goal: Nutritional status is improving Outcome: Progressing Problem: Urinary Incontinence Goal: Perineal skin integrity is maintained or improved Outcome: Progressing Problem: Problem Interventions Goal: Assess Nutritional Intake Outcome: Progressing 11/28/24 1143 Rapid Rounds 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 Pressors now weaned off. Room Air. Regular diet. CVC/Delgado. S/P PRBC transfusion 11/27 for low Hgb. IVAB/IV steroids. Cardiology consulted for bradycardia; no acute intervention. Wound care and surgery evals for skin breakdown. Psych consult for failure to thrive. PT eval pending. From home with spouse prior to admit. DC disposition TBD. CM will continue to follow. Problem: Knowledge Deficit Goal: Patient/family/caregiver demonstrates understanding of disease process, treatment plan, medications, and discharge instructions Outcome: Progressing Problem: Potential for Compromised Skin Integrity Goal: Skin Integrity is Maintained or Improved Outcome: Progressing Goal: Nutritional status is improving Outcome: Progressing Problem: Urinary Incontinence Goal: Perineal skin integrity is maintained or improved Outcome: Progressing Problem: Problem Interventions Goal: Assess Nutritional Intake Outcome: Progressing Problem: Knowledge Deficit Goal: Patient/family/caregiver demonstrates understanding of disease process, treatment plan, medications, and discharge instructions Outcome: Progressing Problem: Potential for Compromised Skin Integrity Goal: Skin Integrity is Maintained or Improved Outcome: Progressing Goal: Nutritional status is improving Outcome: Progressing Problem: Urinary Incontinence Goal: Perineal skin integrity is maintained or improved Outcome: Progressing Problem: Problem Interventions Goal: Assess Nutritional Intake Outcome: Progressing Problem: Urinary Incontinence Goal: Perineal skin integrity is maintained or improved Outcome: Not Progressing Problem: Knowledge Deficit Goal: Patient/family/caregiver demonstrates understanding of disease process, treatment plan, medications, and discharge instructions Outcome: Progressing Problem: Potential for Compromised Skin Integrity Goal: Skin Integrity is Maintained or Improved Outcome: Progressing Goal: Nutritional status is improving Outcome: Progressing Problem: Problem Interventions Goal: Assess Nutritional Intake Outcome: Progressing Problem: Urinary Incontinence Goal: Perineal skin integrity is maintained or improved Outcome: Not Progressing 11/25/24 1110 Rapid Rounds 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 Admitted to ICU with hypotension requiring levophed infusion. Per EMR and patient report she had been unable to get out of chair at home for several days prior to coming to hospital. Patient reports her is at home but "tweaked" his back and has been unable to help her physically recently. She reports she was walking with walker before the last several days that she hasn't been able to get out of chair and does not have a wheelchair. This AM patient remains on levophed drip. IVAB ordered. Room Air. TTE pending. PO diet ordered. C/S to surgery and wound care for skin breakdown. C/S to pharmacy for IVAB. CM met with patient at bedside. Introduced self and role. Patient is from home with . States they have no children. We discussed that patient may need to go somewhere for further wound care and therapy prior to going home. She verbalized understanding. CM and patient/ will further discuss pending clinical course/consult recommendations. She has PCP and insurance verification is pending per EMR. DC planning ongoing. CM will continue to follow Problem: Knowledge Deficit Goal: Patient/family/caregiver demonstrates understanding of disease process, treatment plan, medications, and discharge instructions Outcome: Progressing Problem: Potential for Compromised Skin Integrity Goal: Skin Integrity is Maintained or Improved Outcome: Progressing Goal: Nutritional status is improving Outcome: Progressing Problem: Urinary Incontinence Goal: Perineal skin integrity is maintained or improved Outcome: Not Progressing documented in this encounter [facility] 12-02-2024 History of Present illness Narrative Images from the original note were not included. Hospitalist Progress Note 12/02/2024 Subjective: Admit Date: 11/24/2024 PCP: Priscilla Llanes MD Room#: N4-450/N4-662 A BRIEF HOSPITAL COURSE: This is a 64 y/o female with a PMHX of HTN, peripheral venous insuffiencey, DVT on xarelto, obesity, HOGAN, and osteoarthritis. She presented to [facility] ED on 11/24/24 with complaints of increased pain and weakness which led to her being unable to ambulate at home. The patient recently retired due to poor mobility related to her OA in bilateral knees. Upon arrival to the ED the patient was alert and oriented x3, hypotensive, bradycardic, hypothermic, with O2 saturations >95% on RA. She was given IVF bolus and vasopressors were started. Blood, urine, and wound cultures (LLE) were obtained. The ICU team was consulted and the patient was admitted to the MICU for continued management. Surgery was consulted for possible wound debridement. Pt required levo and vaso. With ongoing hyokalemia which was replaced. Noted to have intermittent bradycardia and seen by cardiology. Urine cultures positive for E coli. Maintained on zosyn through 12/01 for 7 day course. Weaned off pressors. Anemia noted and transfused 1U PRBC on 11/27. Pt stable and transferred to the [facility] 11/30 under the hospitalist service. Pt/OT recommending SNF and pt agreeable awaiting auth Interval History: 12/02: Pt seen and examined. No complaints. K and phos replaced this AM, but overall improving. Changed BMP to daily. To remove CVC today. Awaiting auth for SNF Adult diet Regular 24HR INTAKE/OUTPUT: Intake/Output Summary (Last 24 hours) at 12/02/2024 1234 Last data filed at 12/01/2024 1500 Gross per 24 hour Intake 240 ml Output -- Net 240 ml Past Medical History: Medical History[1] LABS: CBC: Recent Labs 11/30/24 0015 12/01/24 0302 12/02/24 0439 WBC 7.6 6.9 6.7 RBC 2.41* 2.24* 2.40* HGB 8.0* 7.6* 8.0* HCT 24.7* 23.1* 24.8* MCV 102.5* 103.1* 103.3* RDW 15.9* 16.6* 16.4* PLT 61* 60* 70* BMP: Recent Labs 11/30/24203212/01/24 1330 12/01/242042 NA 143 140 140 K 2.3* 2.9* 3.4* CL 108* 108* 108* CO2 BUN 12 11 14 CREATININE 0.63 0.53* 0.53* GLUCOSE 82 98 100 CALCIUM 9.2 8.5* 8.8 ANIONGAP 11 7 7 LIVER PROFILE:No results for input(s): "AST", "ALT", "BILITOT", "ALKPHOS", "PROT" in the last 72 hours. No lab exists for component: LABALBU PT/INR: No results for input(s): "PROTIME", "INR" in the last 72 hours. CARDIAC ENZYMES: No results for input(s): "TROPONINI" in the last 72 hours. Procalcitonin: No results found for: "PROCAL" COVID-19 PCR: No results for input(s): "COVID19" in the last 72 hours. Objective: Vitals: BP 142/76 (BP Location: Left arm, Patient Position: Sitting) Pulse 64 Temp 36.3 C (97.3 F) (Temporal) Resp 16 Ht 5' 6" (1.676 m) Wt 287 lb 12.8 oz (131 kg) SpO2 99% BMI 46.45 kg/m Pulse Ox: SpO2 Av.5 % Min: 96 % Max: 99 % Supplemental O2: GENERAL: Lying in bed comfortably, awake and alert HEENT: normocephalic, non-traumatic, MMM NECK: supple, trachea midline, RIJ CVC HEART: RRR, normal S1 and S2 LUNGS: good breath sounds bilaterally, no wheeze, no rhonchi, no rales ABD: soft, obese SKIN: warm, dry, erythema and edema LE with open and healing wounds, sacral/buttocks wounds PSYCH: appropriate affect Medications: Scheduled PRN Scheduled Meds[2] PRN Meds[3] Continuous Continuous Meds[4] Assessment Data: Acute, acute on chronic, unstable/uncontrolled chronic problems/diagnoses: Shock, likely hypovolemic and septic due to bacteroides LLE and buttocks wounds, E coli UTI Intermittent bradycardia Bilateral LE edema, negative for DVT HOGAN WILIAN with NAGMA, hypokalemia Macrocytic anemia, thrombocytopenia Malnutrition Depression/anxiety Staph epi blood culture - contaminant, 1/2 cultures and repeat negative Stable chronic problems affecting care, new non-acute diagnoses: Hx of DVT on xarelto - holding due to thrombocytopenia HTN Morbid obesity Plan As a result of the above findings & factors, the following mgmt was pursued: - cont meds as ordered - Zosyn for 7 day course completed 12/01 - wound care - am labs, replace lytes prn - PT/OT/CM/SW - delirium precautions: increase activity and limit nighttime disturbances - DVT prophylaxis: encourage ambulation Advance Directive: Full Code Anticipated Discharge - Date - no medical barrier to DC - Location - Skilled Facility - Pending the following - auth Total time spent (which include face to face and non face to face encounters) : 50 minutes Extended Emergency Contact Information Primary Emergency Contact: Justin Collier Mobile Relation: Spouse Plate Roller needed? No Justo Tejada DO Division of Hospitalist Medicine [facility] [1] Past Medical History: Diagnosis Date Blood clot in vein bilateral legs Hypertension Post-thrombotic syndrome Venous ulcer (CMS/HCC) (HCC) left leg [2] buPROPion SR, 100 mg, Oral, BID chlorhexidine, , Topical, Daily collagenase, , Topical, Daily [Held by provider] enoxaparin, 40 mg, SubCUTAneous, q24h folic acid, 1 mg, Oral, Daily miconazole, , Topical, BID pantoprazole, 40 mg, Oral, Daily Or pantoprazole (ProtoNix) 40 mg in sodium chloride (PF) 0.9 % 10 mL injection, 40 mg, IntraVENous, Daily Petrolatum, , Topical, Daily Petrolatum, , Topical, BID sodium chloride 0.9%, 5-40 mL, IntraCATHeter, q8h stomahesive in petrolatum, , Topical, q8h [3] PRN medications: acetaminophen, dextrose, dextrose, glucagon (rDNA), glucose, naloxone, ondansetron ODT OR ondansetron, oxyCODONE OR oxyCODONE, polyethylene glycol (PEG) 3350, sodium chloride 0.9%, stomahesive in petrolatum [4] Images from the original note were not included. OCCUPATIONAL THERAPY [facility] Initial Evaluation Name/MRN: Maxwell Collier ([id number]) Evaluation Date: 12/01/2024 Date of : 1960 Admission Date: 11/24/2024 1:30 PM Age: 64 y.o. Room/Bed: N4446/[facility] B Discharge Recommendation: [facility] Facility Other: DME TBD Assessment IMPRESSION: Pt presents to [facility] with wound of LLE. Pt tolerated OT eval fair, requires Max A for rolling, SBA for bed level grooming/feeding, total A for LE ADLs/toileting. Pt will continue to benefit from acute OT during hospitalization and is recommended for SNF for planned discharge. Admitting Diagnosis: Wound of left lower extremity, initial encounter Performance Deficits /Impairments: Decreased Functional Mobility, Decreased ADL status, Decreased Strength, Decreased Safety Awareness, Decreased Endurance, Decreased Balance, and Decreased High Level IADLs Prognosis: Good Decision Making: Medium Complexity Subjective Pt presents in bed, agreeable to OT. Pain: Pt denies any current pain. Past Medical History: Medical History[1] Past Surgical History: Surgical History[2] Admission Diagnosis: Patient Active Problem List Diagnosis Date Noted Wound of left lower extremity, initial encounter 11/24/2024 Unilateral primary osteoarthritis, right knee 07/02/2022 Peripheral venous insufficiency 06/25/2022 Essential (primary) hypertension 12/02/2017 Personal history of nicotine dependence 12/02/2017 Personal history of diseases of the blood and blood-forming organs and certain disorders involving the immune mechanism 12/02/2017 Angio-edema 12/02/2017 Medical Precautions: No active isolations Proper PPE donned/doffed in accordance with facility standards. Fall Risk: Potts Fall Risk Score: 60 (Medium Risk) Potts Fall Risk Score: 60 (High Risk) Precautions/Restrictions: Lines/Drains/Airways: PIV Fall Precautions Family/Caregiver Present: none Overall Cognitive Status: WFL Overall Orientation Status: Oriented x4 Appears tearful conversationally Social/Functional History Patient admitted from home. Lives With: Spouse Type of Home: single family home Home Layout: Split Level Home Home Access: Stairs to Enter with Rails (# of stairs: 6) Bathroom Shower/Tub: walk in shower Toilet: N/A Home Equipment: front wheeled walker Homemaking Responsibilities: Needs Assist Receives Help From: Spouse Active Unemployment Benefits Claims Taker: No Pt reports increased difficulty with ADLs at home. Prior Level of Function Prior Level of ADL Function: Independent Prior Level of Mobility: Independent; Device: Front wheeled walker Prior Level of Transfers: Independent Objective ADLs LE Dressing: Dependent Toileting: Dependent Grooming: SBA Feeding: SBA Upper Extremity Assessment AROM: WFL PROM: Not assessed this session Strength: Exceptions: 3/5 proximally, 4/5 distally Bed Mobility Rolling to right: Max Assist Rolling to left: Max Assist Coordination: Normal Coordination Tone: Normal Tone Sensation: WFL Vision: wears reading glasses, no acute changes Tremors: No Hearing: normal AM-PAC AM-PAC Inpatient Daily Activity Raw Score: 13 ADL Inpatient CMS G-Code Modifier: CL Plan Pt would benefit from skilled acute OT services to address Strengthening, ROM, Balance Training, Self-Care/ADL Training, Functional Mobility Training, Endurance Training, Safety Education and Training, and Patient/Caregiver Training. Frequency: 2x/week for 4 weeks Barriers: Impaired balance, Lower extremity weakness, Upper extremity weakness, and Decreased endurance Safety/Education Safety Safety Devices in place: All fall risk precautions in place, call light within reach, left in bed, nurse notified, and no alarms engaged upon entry Restraints: No Education Education Given To: patient Education Provided: OT Role, Plan of Care, ADL Adaptive Strategies, Discharge Recommendations, and Benefits of Increasing Activity Education Method: Verbal Barriers to Learning: None Education Outcome: Verbalized Understanding Goals Patient Stated Goal: get stronger Encounter Problems Encounter Problems (Active) Balance Patient will maintain static sitting balance for 8 minutes with SBA in order to demonstrate improved postural control and prepare for out of bed mobility. Start: 12/01/24 Expected End: 12/29/24 Grooming Patient will complete daily grooming tasks with mod I. Start: 12/01/24 Expected End: 12/29/24 OT Misc Misc 1: Pt will demo UE HEP with good carryover for improved UE strengthening Start: 12/01/24 Expected End: 12/29/24 Transfers Patient will perform bed mobility with min assist in order to improve independence and prepare for out of bed mobility. Start: 12/01/24 Expected End: 12/29/24 Therapy Time Individual Co-Treatment Co-Evaluation Time In 1536 Time Out 1548 Minutes 12 Nasra Maier OT Patient's Occupational Therapy Plan of Care supervision is transferred to a [facility] Services Occupational Therapist. Goals and/or treatment plan was established in collaboration with patient/family/other representatives. [1] Past Medical History: Diagnosis Date Blood clot in vein bilateral legs Hypertension Post-thrombotic syndrome Venous ulcer (CMS/HCC) (HCC) left leg [2] Past Surgical History: Procedure Laterality Date EXTREMITY SURGERY lle HYSTERECTOMY SKIN GRAFT Left 2006 Images from the original note were not included. PHYSICAL THERAPY [facility] Treatment Note Name/MRN: Maxwell Collier ([id number]) Date of : 1960 Age: 64 y.o. Room/Bed: N4-446/N4-446 B Discharge Recommendation: [facility] Facility Equipment Needed: No Other: tbd Prior Level of Function Prior Level of ADL Function: Independent Prior Level of Mobility: Independent; Device: Front wheeled walker Prior Level of Transfers: Independent Assessment Pt was supine in bed. She performed exercises with PT, and had wedges put under her left side to be off of her sore on her buttocks area. She has gauze around her calves bilaterally, and is sensitive to touch in that area. Her purewick was not working, needed to be repositioned. She was thankful for being worked with, doing exercises. She was functional until a month ago when her hurt his back and was no longer able to assist her in getting up, moving around. She is at vanessa level for transfers at this time, for the safety of both the patient and the staff. Recommend SNF at discharge Subjective Patient did exercises in the bed today. She is at vanessa lift for transfers. Pain: RN managing pain. Complains of pain in her calves as well as at her buttocks wound area. Medical Precautions: No active isolations Proper PPE donned/doffed in accordance with facility standards. Fall Risk: Potts Fall Risk Score: 60 (Medium Risk) Potts Fall Risk Score: 60 (High Risk) Precautions/Restrictions: Lines/Drains/Airways: PIV Fall Precautions Overall Cognitive Status: WFL Overall Orientation Status: Oriented x4 Family/Caregiver Present: none Objective Bed Mobility Rolling to right: Supervision Transfers/Mobility na Device(s) used: None Exercises Exercises Hip Flexion: x12 Hip Extension/Leg Presses: x12 Hip Abduction: x12 Hip Adduction: x12 Knee Short Arc Quad: x12 with assist Ankle Pumps: x25 Plan Continue acute PT per plan of care. Safety/Education Safety Safety Devices in place: call light within reach and left in bed Restraints: No Education Education Given To: patient Education Provided: Home Exercise Program and Transfer Training Education Method: Verbal and Demonstration Barriers to Learning: None Education Outcome: Verbalized Understanding Outcome Measures AM-PAC AM-PAC Inpatient Mobility Raw Score (No Stairs) : 6 JH-HLM JH-HLM Score: Bed activity Goals Patient Stated Goal: To go home. Encounter Problems Encounter Problems (Active) Balance Patient will maintain static standing balance for 3 minutes with SBA in order to demonstrate decreased risk of falling. (Not Addressed) Start: 11/25/24 Expected End: 12/23/24 Mobility Patient will ambulate 150 feet with SBA and rolling walker in order to improve safety and independence with mobility. (Not Addressed) Start: 11/25/24 Expected End: 12/23/24 Transfers Patient will perform bed mobility with modified independence in order to improve independence and prepare for out of bed mobility. (Progressing) Start: 11/25/24 Expected End: 12/23/24 Patient will complete functional transfer with rolling walker with modified independence in order to prepare for ambulation. (Not Addressed) Start: 11/25/24 Expected End: 12/23/24 Therapy Time Individual Co-treatment Time In 0820 Time Out 0840 Minutes 20 Rola Lucas PT Images from the original note were not included. [facility] Department of Psychiatry Nurse Practitioner Note *Please contact [facility] Listed in [facility] On-Call Finder for urgent needs Mon-Fri: From 1700 - 0800 and Thursday & Thursday* TODAY'S DATE: 11/30/24 ADMISSION DATE: 11/24/2024 Hospital Day: 6 IDENTIFYING INFORMATION Name: Maxwell Collier : 1960 Consulting Practitioner: CHING Ford SUBJECTIVE: CHIEF COMPLAINT: CC: Chief Complaint Patient presents with Failure To Thrive Pt arrived from home for failure to thrive. Pt states she has been in so much pain that she has been unable to get out of her chair x1 week. Principal Problem: Wound of left lower extremity, initial encounter HISTORY OF PRESENT ILLNESS: HPI: In brief, Mawxell Collier is a 64 y.o., female who was hospitalized at [facility] for Wound of left lower extremity, initial encounter on 11/24/2024. Interval History: pt seen in follow up for depression. The patient was seen and examined. The chart was reviewed. On approach, pt is up in ICU bed with at bedside. Agreeable to speak with present. She reports feeling better today, presents brighter and notes she feels hopeful that medication for depression was started and that notes she feels heard. Pt denies any suicidal/homicidal ideation, intent or plan. No gisell noted and no s/s of psychosis. Reports she was up to recliner and doing more. Verbal encouragement and support provided during discussion today. Utilized active listening and validation. Reviewed coping skills, stress management. Reviewed positive attributes and encouraged self-abilities. Discussed time to respond to medication, OP follow up and therapy. Tolerating Rx bupropion without side effects. REVIEW OF SYSTEMS: REVIEW OF SYMPTOMS: All ROS was completed and was negative unless stated above Medications: Current Facility Administered Medications: Current Medications[1] Medications Prior to Admission: Current Outpatient Medications Medication Instructions amLODIPine (Norvasc) 10 MG tablet No dose, route, or frequency recorded. carvedilol (Coreg) 6.25 MG tablet No dose, route, or frequency recorded. famotidine (PEPCID) 20 mg, Oral folic acid (Folvite) 1 MG tablet Daily hydroCHLOROthiazide (HYDRODiuril) 25 MG tablet No dose, route, or frequency recorded. potassium chloride ER (Micro-K) 10 MEQ ER capsule 1 capsule, Oral, Daily traMADol (ULTRAM) 50 mg, Oral, Every 12 hours PRN Xarelto 20 MG tablet Daily Allergies: Allergies[2] History: Past Medical and Psychiatric History: Medical History[3] Family Psychiatric and Medical History: Family History[4] PAST SURGICAL HISTORY Surgical History[5] Social History: Social Connections: Not on file Social Drivers of Health Tobacco Use: Medium Risk (11/26/2024) Patient History Smoking Tobacco Use: Former Smokeless Tobacco Use: Former Passive Exposure: Not on file Alcohol Use: Alcohol Misuse (11/24/2024) AUDIT-C Frequency of Alcohol Consumption: 2-3 times a week Average Number of Drinks: 3 or 4 Frequency of Binge Drinking: Never Financial Resource Strain: Not on file Food Insecurity: Not on file Transportation Needs: Not on file Physical Activity: Not on file Stress: Not on file Social Connections: Not on file Intimate Partner Violence: Not At Risk (11/24/2024) Humiliation, Afraid, Rape, and Kick questionnaire Fear of Current or Ex-Partner: No Emotionally Abused: No Physically Abused: No Sexually Abused: No Depression: Not on file Housing Stability: Not on file Utilities: Not on file Health Literacy: Not on file OBJECTIVE: PHYSICAL/PSYCHIATRIC EXAM: Vitals: Vitals: 11/29/24 1700 11/29/24 2140 11/30/24 0600 11/30/24 0820 BP: 119/61 (!) 131/101 135/68 BP Location: Left arm Left arm Patient Position: Sitting Lying Pulse: 65 62 69 Resp: 14 15 17 Temp: 36.1 C (96.9 F) 36 C (96.8 F) TempSrc: Temporal Temporal SpO2: 97% 96% 99% Weight: 136 kg (299 lb 2.4 oz) Height: Physical Exam: Physical Exam Vitals and nursing note reviewed. Constitutional: Appearance: She is obese. She is ill-appearing. HENT: Head: Normocephalic. Cardiovascular: Rate and Rhythm: Normal rate. Skin: Findings: Wound present. Neurological: Mental Status: She is oriented to person, place, and time. Mental Status Exam: MSE: General Observations: Appearance: Appears Stated Age Behavior/Demeanor: Cooperative Speech: WNL Eye Contact: good Motor: decreased Cognition: Oriented to: Person, Place, Time, and Situation Level of Consciousness: Alert Memory Disturbance: no Mood and Affect: Mood: Depressed/Sad-Improving Affect: Congruent with Mood Thought: Thought Processes: Organized Thought Content: No evidence of psychosis/delusions/gisell Suicidal Ideation: None Reported Homicidal Ideation: None Reported Thought Perceptions: WNL Insight and Judgment: Insight: Fair Judgment: Fair Data Reviewed: Prior records have been reviewed in EMR Labs/Diagnostics: Recent Results (from the past 24 hours) Basic metabolic panel Collection Time: 11/30/24 12:15 AM Result Value Ref Range SODIUM 138 136 - 145 mmol/L POTASSIUM 3.4 (L) 3.5 - 5.1 mmol/L CHLORIDE 110 (H) 98 - 107 mmol/L CARBON DIOXIDE 20 (L) 23 - 31 mmol/L UREA NITROGEN 15 9 - 23 mg/dL CREATININE 0.55 (L) 0.57 - 1.11 mg/dL GLUCOSE 112 82 - 115 mg/dL CALCIUM 8.6 (L) 8.8 - 10.0 mg/dL ANION GAP 8 3 - 13 mmol/L eGFR >90.0 >60.0 mL/min/1.73m*2 CBC auto differential Collection Time: 11/30/24 12:15 AM Result Value Ref Range Auto WBC 7.6 3.6 - 10.7 10*3/uL RBC 2.41 (L) 3.80 - 5.20 10*6/uL Hemoglobin 8.0 (L) 11.7 - 16.0 g/dL Hematocrit 24.7 (L) 35.0 - 47.0 % MCV 102.5 (H) 77.0 - 99.0 fL MCH 33.2 26.0 - 34.0 pg MCHC 32.4 30.5 - 36.0 % RDW 15.9 (H) 11.5 - 15.0 % Platelets 61 (L) 140 - 440 10*3/uL MPV 9.9 9.0 - 12.7 fL IPF 4 Calcium, ionized Collection Time: 11/30/24 12:15 AM Result Value Ref Range Calcium, Ion 4.70 4.30 - 5.20 mg/dL PH, IONIZED CALCIUM 7.48 (H) 7.31 - 7.46 Magnesium Collection Time: 11/30/24 12:15 AM Result Value Ref Range MAGNESIUM 1.9 1.6 - 2.6 mg/dL Phosphorus Collection Time: 11/30/24 12:15 AM Result Value Ref Range PHOSPHORUS 2.6 2.3 - 4.7 mg/dL MANUAL DIFFERENTIAL (CELLAVISION) Collection Time: 11/30/24 12:15 AM Result Value Ref Range RBC Morphology abnormal Anisocytosis Slight (A) (none) Macrocytes Slight (A) (none) Neutrophils % 80 38 - 82 % Bands % 4 (H) <=0 % Lymphocytes % 8 (L) 15 - 45 % Monocytes % 6 5 - 13 % Metamyelocytes % 2 (H) <=0 % Myelocytes % 1 (H) <=0 % Absolute Neutrophil Count 6.4 1.8 - 7.5 10*3/uL Bands Absolute 0.3 (H) <=0.0 10*3/uL Lymphocytes Absolute 0.6 (L) 1.0 - 4.3 10*3/uL Monocytes Absolute 0.5 0.0 - 0.9 10*3/uL Metamyelocytes Absolute 0.2 (H) <=0.0 10*3/uL Myelocytes Absolute 0.1 (H) <=0.0 10*3/uL Neutrophils Manual 83 Lymphocytes Manual 8 Monocytes Manual 6 Eosinophils Manual Basophils Manual Bands Manual 4 Metamyelocytes Manual 2 Myelocytes Manual 1 Promyelocytes Manual Blasts Manual Atypical Lymphocytes Manual Unclassified Cells, Manual Manual nRBC per 100 Cells 4 (H) 0 - 2 % Basic metabolic panel Collection Time: 11/30/24 8:21 AM Result Value Ref Range SODIUM 140 136 - 145 mmol/L POTASSIUM 3.0 (L) 3.5 - 5.1 mmol/L CHLORIDE 112 (H) 98 - 107 mmol/L CARBON DIOXIDE 22 (L) 23 - 31 mmol/L UREA NITROGEN 13 9 - 23 mg/dL CREATININE 0.57 0.57 - 1.11 mg/dL GLUCOSE 112 82 - 115 mg/dL CALCIUM 8.7 (L) 8.8 - 10.0 mg/dL ANION GAP 6 3 - 13 mmol/L eGFR >90.0 >60.0 mL/min/1.73m*2 I reviewed pertinent laboratory results, radiographic results, Most recent EKG: Encounter Date: 11/24/24 ECG 12 lead Result Value Heart Rate 59 QRSD Interval 121 QT Interval 485 QTC Interval 507 P [place] -16 QRS [place] -7 T Wave [place] 87 [place] Interval 252 Impression Sinus rhythm MOBITZ I AV BLOCK (W[place]KEBACH Nonspecific intraventricular conduction delay Nonspecific repol abnormality, diffuse leads Electronically Signed On 11-27-2024 12:45:25 EDT by Saloni Miguel ASSESSMENT: Problem List[6] 1. Wound of left lower extremity, initial encounter 2. Wound infection 3. Lower extremity edema Depression, unspecified PLAN: RECOMMENDATIONS: Disposition: Pt is accepting of medical care, denies suicidal/homicidal ideation, intent or plan, and no noted gisell or psychosis. Pt does not meet criteria for inpatient psychiatric hospitalization. Medications: continue buproprion 100 mg BID Labs/Diagnostics: per primary Delirium precautions: Avoid sedating/anticholinergic medications, encourage sleep hygiene, minimize barriers to nutrition, optimize sensory input and access to assistive devices (dentures, glasses, etc) where indicated, encourage time up in chair as able, D/c Delgado, restraints, IV lines, as able and reserve agitation PRNs for instances where patient is danger to self/others/treatment. Recommendations shared with primary team. Follow up: peripherally as able *Please contact [facility] Listed in [facility] On-Call Finder for urgent needs Thu-Thu: From 1700 - 0800 and Thursday & Thursday* On this day, 11/30/24 , I spent total time 35 minutes preparing to see the pt, reviewing previous notes, obtaining/reviewing separately obtained, history, test results, and coordinating care with hospital staff and if pertinent outpatient providers, as well as documenting all relevant and pertinent clinical information in the patient's electronic record on the day of the visit. In addition,I was able to, spend face/face time counseling/educating the patient/family/caregiver, discuss the diagnosis, current symptom burden, medication side effects, medication change options, and importance of compliance with the treatment plan. For every encounter with this patient, if applicable this Provider wore appropriate PPE including but not limited to standard precautions, N95 mask, surgical mask, gown and/or protective eyewear. Chart reviewed, including notes, labs, imagining, allergies, and medications, all pertinent information discussed with medical staff, nursing, social work, and patient/family if necessary. [1] Current Facility-Administered Medications: acetaminophen (Tylenol) tablet 650 mg, 650 mg, Oral, q4h PRN, Olive Rico-Marsha, WIRE ROPE SALES REPRESENTATIVE - SOFTWARE SALES CONSULTANT buPROPion SR (Wellbutrin SR) 12 hr tablet 100 mg, 100 mg, Oral, BID, Olive Luis Modin-Marsha, WIRE ROPE SALES REPRESENTATIVE - SOFTWARE SALES CONSULTANT, 100 mg at 11/30/24828 chlorhexidine (Hibiclens) 4 % solution, , Topical, Daily, Olive Rico-Marsha, WIRE ROPE SALES REPRESENTATIVE - SOFTWARE SALES CONSULTANT, Given at 11/30/24 0439 collagenase 250 UNIT/GM ointment, , Topical, Daily, Olive Rico-Marsha, WIRE ROPE SALES REPRESENTATIVE - SOFTWARE SALES CONSULTANT, Given at 11/30/24828 dextrose 5 % infusion, 100 mL/hr, IntraVENous, PRN, Olive Rico-Marsha, WIRE ROPE SALES REPRESENTATIVE - SOFTWARE SALES CONSULTANT dextrose 50 % solution 12.5 g, 12.5 g, IntraVENous, PRN, Olive Rico-Marsha, WIRE ROPE SALES REPRESENTATIVE - SOFTWARE SALES CONSULTANT [Held by provider] enoxaparin (Lovenox) syringe 40 mg, 40 mg, SubCUTAneous, q24h, Olive Rico-Marsha, WIRE ROPE SALES REPRESENTATIVE - SOFTWARE SALES CONSULTANT, 40 mg at 11/27/24 1430 folic acid (Folvite) tablet 1 mg, 1 mg, Oral, Daily, Olive Rico-Marsha, WIRE ROPE SALES REPRESENTATIVE - SOFTWARE SALES CONSULTANT, 1 mg at 11/30/24828 glucagon (human recombinant) injection 1 mg, 1 mg, IntraMUSCular, PRN, Olive Rico-Marsha, WIRE ROPE SALES REPRESENTATIVE - SOFTWARE SALES CONSULTANT glucose oral gel 15 g, 15 g, Oral, PRN, Olive Rico-Marsha, WIRE ROPE SALES REPRESENTATIVE - SOFTWARE SALES CONSULTANT [START ON 12/01/2024] Hydrocortisone Sod Suc (PF) (Solu-CORTEF) injection 50 mg, 50 mg, IntraVENous, Daily, Olive Rico-Marsha, WIRE ROPE SALES REPRESENTATIVE - SOFTWARE SALES CONSULTANT magnesium oxide (Mag-Ox) tablet 400 mg, 400 mg, Oral, BID, Olive Asencioodin-Marsha, WIRE ROPE SALES REPRESENTATIVE - SOFTWARE SALES CONSULTANT, 400 mg at 11/30/24828 miconazole (Micotin) 2 % powder, , Topical, BID, Olive Rico-Marsha, WIRE ROPE SALES REPRESENTATIVE - SOFTWARE SALES CONSULTANT, Given at 11/30/24828 naloxone (Narcan) injection 0.4 mg, 0.4 mg, IntraVENous, q5 min PRN, Olive Rico-Marsha, WIRE ROPE SALES REPRESENTATIVE - SOFTWARE SALES CONSULTANT ondansetron ODT (Zofran-ODT) disintegrating tablet 4 mg, 4 mg, Oral, q8h PRN OR ondansetron (Zofran) injection 4 mg, 4 mg, IntraVENous, q6h PRN, Olive Rico-Marsha, WIRE ROPE SALES REPRESENTATIVE - SOFTWARE SALES CONSULTANT oxyCODONE (Roxicodone) immediate release tablet 5 mg, 5 mg, Oral, q6h PRN, 5 mg at 11/30/24 1035 OR oxyCODONE (Roxicodone) immediate release tablet 10 mg, 10 mg, Oral, q6h PRN, Olive Asencioodin-Marsha, WIRE ROPE SALES REPRESENTATIVE - SOFTWARE SALES CONSULTANT pantoprazole (ProtoNix) EC tablet 40 mg, 40 mg, Oral, Daily, 40 mg at 11/30/24 0829 OR pantoprazole (ProtoNix) 40 mg in sodium chloride (PF) 0.9 % 10 mL injection, 40 mg, IntraVENous, Daily, Olive Rico-Marsha, WIRE ROPE SALES REPRESENTATIVE - SOFTWARE SALES CONSULTANT, 40 mg at 11/29/24 0841 Petrolatum ointment, , Topical, Daily, Olive Rico-Marsha, WIRE ROPE SALES REPRESENTATIVE - SOFTWARE SALES CONSULTANT, Given at 11/30/24 0548 Petrolatum ointment, , Topical, BID, Olive Asencioodin-Marsha, WIRE ROPE SALES REPRESENTATIVE - SOFTWARE SALES CONSULTANT, Given at 11/30/24 1507 piperacillin-tazobactam (Zosyn) 4,500 mg in sodium chloride 0.9 % 100 mL IVPB Mini-Bag Plus, 4,500 mg, IntraVENous, q6h, Olive Rico-Marsha, WIRE ROPE SALES REPRESENTATIVE - SOFTWARE SALES CONSULTANT, Stopped at 11/30/24 1333 polyethylene glycol (PEG) 3350 (Miralax) packet 17 g, 17 g, Oral, Daily PRN, Olive Rico-Marsha, WIRE ROPE SALES REPRESENTATIVE - SOFTWARE SALES CONSULTANT potassium chloride CR (Klor-Con M10) ER tablet 10 mEq, 10 mEq, Oral, BID, Olive Rico-Marsha, WIRE ROPE SALES REPRESENTATIVE - SOFTWARE SALES CONSULTANT, 10 mEq at 11/30/24 1104 sodium chloride 0.9% (NS) flush 5-40 mL, 5-40 mL, IntraCATHeter, q8h, Olive Asencioodin-Marsha, W[employer] ROPE SALES REPRESENTATIVE - SOFTWARE SALES CONSULTANT, 10 mL at 11/30/24 0829 sodium chloride 0.9% (NS) flush 5-40 mL, 5-40 mL, IntraVENous, PRN, Olive Asencioodin-Marsha, WIRE ROPE SALES REPRESENTATIVE - SOFTWARE SALES CONSULTANT stomahesive in petrolatum (ET Mix), , Topical, PRN, Olive Berrodin-Marsha, WIRE ROPE SALES REPRESENTATIVE - SOFTWARE SALES CONSULTANT, Given at 11/25/24 0903 stomahesive in petrolatum (ET Mix), , Topical, q8h, Olive Berrodin-Marsha, WIRE ROPE SALES REPRESENTATIVE - SOFTWARE SALES CONSULTANT, Given at 11/30/24 0958 [2] Allergies Allergen Reactions Lisinopril Swelling [3] Past Medical History: Diagnosis Date Blood clot in vein bilateral legs Hypertension Post-thrombotic syndrome Venous ulcer (CMS/HCC) (HCC) left leg [4] Family History Problem Relation Name Age of Onset High Blood Pressure Paternal Grandmother High Blood Pressure Father High Blood Pressure Maternal Grandmother [5] Past Surgical History: Procedure Laterality Date EXTREMITY SURGERY lle HYSTERECTOMY SKIN GRAFT Left 2006 [6] Patient Active Problem List Diagnosis Angio-edema Essential (primary) hypertension Peripheral venous insufficiency Unilateral primary osteoarthritis, right knee Personal history of nicotine dependence Personal history of diseases of the blood and blood-forming organs and certain disorders involving the immune mechanism Wound of left lower extremity, initial encounter RD stopped in to check on pt given change in ONS regimen yesterday (changed from Ensure Max to Snyder Jair mixed in diet sprite). Pt states that is enjoying the Snyder Jair. She states that she desires to continue with ONS only once per day however. Pt denies having any other questions/concerns for RD after visit yesterday. Will continue to monitor weight changes, labs and overall nutrition status RD will continue to follow up weekly Images from the original note were not included. PHYSICAL THERAPY [facility] Treatment Note Name/MRN: Maxwell Collier ([id number]) Date of : 1960 Age: 64 y.o. Room/Bed: T3-306/T3-306 A Discharge Recommendation: [facility] Facility Other: tbd Prior Level of Function Prior Level of ADL Function: Independent Prior Level of Mobility: Independent; Device: Front wheeled walker Prior Level of Transfers: Independent Assessment Pt presents with impaired mobility. Noted significant weakness and decreased activity tolerance. Pt c/o pain on RLE and sacral area limiting her mobility. Pt requires max to dependent assist with all functional mobility. Pt was unable to complete transfers and gait at this time. Recommend SNF at discharge. Subjective Pt in bariatric. Agree with PT treatment. RN cleared for PT. Pain: Martinez-Callahan Pain Ratin = Hurts even more Pain Location: sacrum and right leg Medical Precautions: No active isolations Proper PPE donned/doffed in accordance with facility standards. Fall Risk: Potts Fall Risk Score: 60 (Medium Risk) Potts Fall Risk Score: 60 (High Risk) Precautions/Restrictions: Lines/Drains/Airways: PIV Fall Precautions Overall Cognitive Status: Exceptions - Initiation: requires cues for some - Sequencing: requires cues for some Overall Orientation Status: Oriented to Place and Oriented to Person Family/Caregiver Present: none Objective Bed Mobility Rolling to right: Max Assist Rolling to left: Max Assist Attempted long sitting, pt refused due to pain on sacral area Transfers/Mobility Sit to stand: Max Assist Unable to complete sit to stand from chair. Device(s) used: bed rail Balance During Session: Posture: fair Sitting - Static: Min Assist Sitting - Dynamic: Min Assist Standing - Static: na Standing - Dynamic: na Vanessa lift to chair. Attempted sit to stand from chair 3 times. Used bed rail on the left for pt to pull. Noted <25% lift from chair but unable to complete stand. Feet sliding out and pt c/o pain on right leg and sacral area. Needing rests in between attempts. Pt was scooted far forward that needed dependent assist x 2 to scoot back in the chair to position pt safely. Performed leaning forward, pt using UE to pull from arm rest, tolerated <3 minutes to hold position but c/o sacral pain. Exercises In supine Ankle pumps x 10 Heel slides x 10, AAROM Hip Abd/add x 10 AAROM In sitting LAQ x 10 Hip flex x 10 Breathing ex. Plan Continue acute PT per plan of care. Safety/Education Safety Safety Devices in place: call light within reach, left in chair, gait belt, nurse notified, no alarms engaged upon entry, and vanessa pad in place Restraints: No Education Education Given To: patient Education Provided: PT Role, PT Goals, and Plan of Care Education Method: Verbal Barriers to Learning: None Education Outcome: Verbalized Understanding and Continued Education Needed Outcome Measures AM-PAC AM-PAC Inpatient Mobility Raw Score (No Stairs) : 6 JH-HLM JH-HLM Score: Transferred to chair/commode Goals Patient Stated Goal: To go home. Encounter Problems Encounter Problems (Active) Balance Patient will maintain static standing balance for 3 minutes with SBA in order to demonstrate decreased risk of falling. (Not Progressing) Start: 11/25/24 Expected End: 12/23/24 Mobility Patient will ambulate 150 feet with SBA and rolling walker in order to improve safety and independence with mobility. (Not Addressed) Start: 11/25/24 Expected End: 12/23/24 Transfers Patient will perform bed mobility with modified independence in order to improve independence and prepare for out of bed mobility. (Not Progressing) Start: 11/25/24 Expected End: 12/23/24 Patient will complete functional transfer with rolling walker with modified independence in order to prepare for ambulation. (Progressing) Start: 11/25/24 Expected End: 12/23/24 Therapy Time Individual Co-treatment Time In 0950 Time Out 1030 Minutes 40 Timed Code Treatment Minutes: 38 Minutes (FA x 2, TP) Scotty Reyna PT ICU Progress Note Name: Maxwell Collier : 1960(64 y.o.) Date: 11/30/24 Team: MICU Attending: Malgorzata Carpenter Subjective: Hospital Summary: 64 YO female w/PMH HTN, DVTs on xarelto, Bilateral lower venous insufficiency, HOGAN, OA bilateral knees. Patient presented to [facility] ED on 11/24/2024 from home with C/O weakness and lethargy. Per patient baseline poor mobility 2/2 OA knees which led to her residential 1 month ago. Patient reports decreased PO intake, lethargy and generalized weakness which had worsening the days leading up to admit. Per reports the patient has been sitting in her recliner incontinent of stool and urine for 4 days unable to get out of chair. Upon arrival to the ED, patient alert and oriented with normal O2 sats . Vitals of note included BP 82/51, HR 58, Temp 35.8, RR 18. Patient was given Sepsis bolus and was ultimately started on pressors. Patient was broadly cultured including wounds cultures to LLE wound. ICU consulted and patient was admitted to ICU with a surgery consult for possible debridement of wound. 11/25 Ongoing pressor requirement of Norepinephrine and vasopressin. Arterial line and CVC placed. Ongoing hypokalemia requirement frequent replacement. Ongoing periods of bradycardia with HR in the low 50's 11/26 Decreasing pressors requirement. 7-10mcg/min. Patient with improved mentation. Bicarb drip initiated for ongoing NAGMA. Ongoing hypokalemia. Patient Patient evaluated per cardiology for ongoing periods of bradycardia with no intervention at this time. 11/27 Uneventful night. Hgb 6.8 transfused 1 unit PRBC. Vasopressin weaned to off. Improving mentation and answering questions. Patient eating PO diet. 11/28 Pending anemia work up. Patient reports depression and requests to see psychiatry. Started on bupropion Patient is refusing to turn and get out of bed. Very resistant to any physical activity. Emotional support given 11/29 Reinforced need to ambulate and get up in the chair. Emotional support given. Patient started on bupropion and reinforced the need for outpatient talk therapy. Interval Events: Patient alert and oriented x3. Patient tolerating increased movement. Will need PT/OT and likely short term rehab stay Scheduled Meds: acetaminophen, 1,000 mg, Oral, q8h buPROPion SR, 100 mg, Oral, BID chlorhexidine, , Topical, Daily collagenase, , Topical, Daily [Held by provider] enoxaparin, 40 mg, SubCUTAneous, q24h folic acid, 1 mg, Oral, Daily Hydrocortisone Sod Suc (PF), 50 mg, IntraVENous, q8h miconazole, , Topical, BID pantoprazole, 40 mg, Oral, Daily Or pantoprazole (ProtoNix) 40 mg in sodium chloride (PF) 0.9 % 10 mL injection, 40 mg, IntraVENous, Daily Petrolatum, , Topical, Daily Petrolatum, , Topical, BID piperacillin-tazobactam, 4,500 mg, IntraVENous, q6h sodium chloride 0.9%, 5-40 mL, IntraCATHeter, q8h stomahesive in petrolatum, , Topical, q8h Continuous Infusions: Objective: Last Vitals: BP MAP (!) 131/101 (11/29/242139) 110 (11/29/242139) Arterial BP MAP 128/52 (11/28/240) 78 mmHg (11/28/24399) Temp 36.1 C (96.9 F) (11/29/242139) Pulse 62 (11/29/242139) Resp 15 (11/29/242139) SpO2 96 % (11/29/242139) Weight 136 kg (299 lb 2.4 oz) (11/30/24599) BMI Body mass index is 48.28 kg/m . I/O: 11/29 699 - 11/30 658 In: 776.2 [I.V.:776.2] Out: 1200 [Urine:1200] Ventilator: NA Oxygen Delivery: Invasive Lines / Tubes / Drains: CVC Triple Lumen 11/25/24 Right Internal jugular (Active) Number of days: 2 Urethral Catheter (Active) Number of days: 2 Arterial Line 11/25/24 Right Radial (Active) Number of days: 2 Central Line Indication: Inadequate peripheral access despite documented ultrasound attempts AND unable to place extended dwell PIV Delgado Indications: NA - patient does not have a Delgado catheter Restraints: NA - patient is not restrained. Wounds: Wound/Incision 11/24/24 Pressure Injury Flank Left;Upper (Active) Date First Assessed/Time First Assessed: 11/24/242231 Present on Original Admission: Yes Primary Wound Type: Pressure Injury Location: Flank Wound Location Orientation: Left;Upper Wound/Incision 11/24/24 Pressure Injury Flank Right;Upper (Active) Date First Assessed/Time First Assessed: 11/24/242232 Primary Wound Type: Pressure Injury Location: Flank Wound Location Orientation: Right;Upper Wound/Incision 11/24/24 Pressure Injury Leg Anterior;Left;Proximal;Upper (Active) Date First Assessed/Time First Assessed: 11/24/242232 Primary Wound Type: Pressure Injury Location: Leg Wound Location Orientation: Anterior;Left;Proximal;Upper Wound/Incision 11/24/24 Pressure Injury Leg Anterior;Proximal;Right;Upper (Active) Date First Assessed/Time First Assessed: 11/24/242232 Primary Wound Type: Pressure Injury Location: Leg Wound Location Orientation: Anterior;Proximal;Right;Upper Wound/Incision 11/24/24 Venous Ulcer Calf Anterior;Left (Active) Date First Assessed/Time First Assessed: 11/24/242233 Primary Wound Type: Venous Ulcer Location: Calf Wound Location Orientation: Anterior;Left Wound/Incision 11/24/24 Pressure Injury Buttock (Active) Date First Assessed/Time First Assessed: 11/24/242240 Primary Wound Type: Pressure Injury Location: Buttock Wound/Incision 11/24/24 Pressure Injury Buttock Left (Active) Date First Assessed/Time First Assessed: 11/24/242246 Primary Wound Type: Pressure Injury Location: Buttock Wound Location Orientation: Left Wound/Incision 11/26/24 Pressure Injury Heel Right (Active) Date First Assessed/Time First Assessed: 11/26/24 0800 Primary Wound Type: Pressure Injury Location: Heel Wound Location Orientation: Right Wound/Incision 11/27/24 Skin Tear Calf Anterior;Right (Active) Date First Assessed/Time First Assessed: 11/27/242129 Present on Original Admission: No Primary Wound Type: Skin Tear Location: Calf Wound Location Orientation: Anterior;Right Constitutional: General Appearance []WDWN [x]Obese []Cachectic []Thin [x]Ill Eyes: Inspection of Pupils/Irises Pupils round and react: [x]Yes []No Sclera: []Icteric []Non-Icteric Inspection of Conjunctiva/Lids Conjunctiva: [x]Injected []Non-Injected Lids: [x]Intact []Lesion Present ENT/Mouth: External Inspection of ears/nose [x] Normal [] Scar/Lesion/Mass Inspection of teeth/lips/gums Dentition: [][place] Teeth []Dentures Lips/Gums: [x]Intact []Lesion Present Mucosa: [x][place] [x]Moist []Dry Neck: External Appearance Overall Appearance: [x]Normal []Lesion/Mass/Crepitus Present Trachea midline: [x]Yes []No Thyroid [x]Normal []Enlarged []Tender []Mass []Absent Respiratory: Respiratory effort []Labored [x]Non-Labored [] Mechanically-Ventilated Auscultation [x]Clear []Crackles []Wheezes []Rhonchi Cardiovascular: Auscultation Rate: [x]Regular []Irregular []Tachycardia []Bradycardia Rhythm: [x]Regular []Irregular Murmur: []Present []Absent Extremities Peripheral Edema: [x]Present []Absent Varicosities: []Present []Absent RLE 3+ and LLE 2+ Gastrointestinal: Abdomen Palpation: [x]Soft []Firm []Tender [x]Non-Tender []Distended [x]Non-distended Mass: []Present []Absent Bowel Sounds: [x]Present []Absent Hernia: []Present []Absent Liver/Spleen: []Hepatosplenomegaly []Organomegaly Absent Musculoskeletal: Inspection of Digits and Nails Cyanosis: []Present [x]Absent Clubbing: []Present [x]Absent Ischemia: []Present [x]Absent Infection: [x]Present []Absent Excoriation to groin, beneath breasts, gluteal cleft, large wound to medial adam Extremities RUSSO Equally: ([x]RUE [x]RLE [x]LUE [x]LLE) Strength/Tone: Intact and Normal ([]RUE []RLE []LUE []LLE) Skin: Inspection []Normal []Rash []Lesion []Ulcer Palpation [x]Warm []Cool [x]Dry []Clammy []Nodules []Induration []Skin-tightening Cap-Refill: [x] <3 sec [] >3 seconds (delayed) Neurologic: GCS EYE: 4 - Opens spontaneously GCS MOTOR: 6 - Obeys commands for movement GCS VERBAL: 5 - Oriented to person, place, time Total GCS: 15 [x] Sensation grossly intact Psych: Mental Status Alert: [x]Yes [] No Oriented: []x0 []X1 []X2 [x]x3 Mood/Affect [x]Normal []Flat []Agitated []Depressed []Anxious []Calm []Sedated []NAD [facility] within last 24 hours- BMP: Recent Labs 11/29/24 0502 11/29/24 1245 11/30/24 0015 NA 137 138 138 K 3.6 3.7 3.4* CL 109* 110* 110* CO2 22* 22* 20* BUN 12 11 15 CREATININE 0.53* 0.53* 0.55* CALCIUM 8.4* 8.6* 8.6* MG 1.7 2.1 1.9 PHOS 2.1* 2.6 2.6 LFTs: Recent Labs 11/28/24 0403 BILITOT 1.0 Glucose: Recent Labs 11/27/24 1159 11/27/24200911/28/24 0403 11/28/24 1211 11/28/246 11/29/24 0502 11/29/24 1245 11/30/24 0015 GLUCOSE 151* 150* 137* 137* 125* 108 110 112 Procal: Recent Labs 11/27/24 1159 PROCAL 0.12* CBC: Recent Labs 11/28/24 0403 11/29/24 0502 11/30/24 0015 WBC 7.3 7.1 7.6 HGB 7.5* 7.4* 8.0* HCT 21.7* 22.8* 24.7* PLT 69* 61* 61* MCV 99.1* 102.2* 102.5* RDW 16.4* 16.5* 15.9* ABGs: No results for input(s): "PHART", "HBA0YTI", "PO2ART", "YNN8NDK", "SO2ART", "U1QLAOZX" in the last 72 hours. Lactic Acid: No results for input(s): "LACTATE" in the last 72 hours. INR: No results for input(s): "INR" in the last 72 hours. Cardiac Injury Profile: No results for input(s): "CKTOTAL", "CKMB", "TROPONINI" in the last 72 hours. Labs in Last 3 months: Lab Results Component Value Date TSH 0.57 11/26/2024 Microbiology- Urine Cx: Lab Results Component Value Date URINECX Normal urogenital rula present 11/24/2024 URINECX 10,000-50,000 CFU/mL Escherichia coli (A) 11/24/2024 Blood Cx: Lab Results Component Value Date BLOODCX No growth at 48 hours 11/28/2024 BLOODCX No growth at 48 hours 11/28/2024 Sputum Cx: No results found for: RESPCULT Gram Stain: Lab Results Component Value Date LABGRAM (A) 11/24/2024 Moderate Polymorphonuclear leukocytes per low power field LABGRAM Moderate Gram positive cocci (A) 11/24/2024 LABGRAM Few Gram positive bacilli (A) 11/24/2024 LABGRAM Few Gram negative bacilli (A) 11/24/2024 PNA PCR: No results found for: HUMANMETAPNE COVID19: No results found for: COVID19 Legionella Ag: No results found for: "LEGIONELLAPN" Strep Ag: No results for input(s): "STREPPNEUMO" in the last 72 hours. Imaging- Microbiology- 11/24 blood cultures 1/2 + MSSE (likely contaminant) 11/24 wound culture - pending 11/24 urine culture - + e. Coli (10-50k CFU) Imaging- 11/24 XR left tib/fib FINDINGS: No fracture or dislocation of the left tibia or fibula is identified. Generalized soft tissue swelling of the left lower extremity is noted. There is no evidence of soft tissue gas or radiopaque foreign body. Scattered soft tissue calcification is noted. There is a plantar heel spur. 11/24 abdominal ultrasound Impression: 1. Cholelithiasis and sludge without sonographic evidence of acute cholecystitis. 2. Mild hepatomegaly with probable hepatic steatosis. 3. Nonobstructing right renal calculi. 11/25 TTE Technically difficult study. Left Ventricle: Left ventricle size is normal. Normal wall thickness. Normal left ventricular systolic function. The EF by visual approximation is 65%. Normal wall motion. Normal diastolic function. Right Ventricle: Not well visualized. Right ventricle size is normal. Normal systolic function. Aortic Valve: Trileaflet. No cusp thickening. No cusp calcification. No regurgitation. No stenosis. Mitral Valve: Valve structure is normal. No regurgitation. No stenosis noted. Tricuspid Valve: Valve structure is normal. Mild (1+) regurgitation. Normal RVSP. RVSP is 26 mmHg. Left Atrium: Not well visualized but left atrium size is probably normal. Interatrial Septum: No interatrial shunt visualized on color Doppler. Right Atrium: Not well visualized but right atrium size is probably normal. Aorta: Normal sized sinuses of Valsalva and ascending aorta. Pericardium: Evidence of prominent epicardial fat. No pericardial effusion. IVC/SVC: IVC diameter is normal and decreases less than 50% during inspiration; therefore the estimated right atrial pressure is intermediate (~8 mmHg). Assessment and Plan: Principal Problem: Wound of left lower extremity, initial encounter Assessment: Septic and hypovolemic Shock -Continue Pip/tazo -1st blood cultures + staph epidermidis--> usually contaminant but 2/2 many wounds repeat blood cultures pending -Urine + e.coli -Afebrile and SBP 112-127 Bradycardia -HR 65-70 overnight -Concerns for REJI --> pulm hypertension as contributing factor -would benefit from outpatient sleep study -asymptomatic with HR Bilateral lower extremity edema HX DVT on xarelto -Known hx lymphedema of bilateral lower extr increased edema -severe malnutrition w/low albumin and total protein -Vascular insufficiency with venous stasis and brian wound -would benefit from lymphedema wraps outpatient -Risk benefit of maintaining xarelto w/thrombocytopenia -PT/OT for evals -Venous duplex negative for DVTs -Albumin followed by lasix for edema HOGAN HX Hyperbilirubinemia--> resolved -Stable -improved labs with hydration -Xarelto held 2/2 low plt count -trend labs WILIAN--> resolved NAGMA--> resolved -Improving -Likely baseline pre-renal -Improved BUN and Scr with fluids and increasing BP -Delgado removed --> external cath -avoid nephrotoxic agents -maintain MAP >65 -Strict I/O -daily weights Macrocytic Anemia--> multifactorial Thrombocytopenia - hgb 8.0 and 24.7 - platelets 61 -Likely dietary, chronic illness, poor protein intake, HOGAN -hemolysis labs remarkable -No signs of active bleeding -Hold DVT prophy Malnutrition Refeeding syndrome--> Hypokalemia, hypophosphatemia, hypomagnesia -regular diet -Supplements with meals -Consult to headliner installer -trend labs replete lytes PRN -K replacement Q8H -trend labs Depression Anxiety -Consult to psychiatry -Would benefit from outpatient talk therapy -started on bupropion 100mg BID LLE venous wound Unstageable pressure injury to coccyx Fungal dermatitis -LLE wound on 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 would that acutely worsened -Consult to gen surgery for debridement -Consult to wound care Debility -PT/OT eval and tx -up to chair daily -Consult to social work and TCC for DC planning FEN -Trend labs -replete lytes PRN -Regular diet with nutritional supplement -Strict I/O -Daily weights -Bowel regimen Code status -Full code GI Prophylaxis: Pantoprazole IV DVT Prophylaxis: hold anticoagulation 2/2 PLT <[address] Carpenter Disposition: Transfer to [facility] Time spent preparing to see the patient, obtaining/reviewing separately obtained history, completing an appropriate medical examination of the patient, ordering medications/tests/procedures, documenting clinical information on the EMR, and/or coordinating care is a subsequent visit: 50 minutes (Level III). ICU Progress Note Name: Maxwell Collier : 1960(64 y.o.) Date: 11/29/24 Team: MICU Attending: Malgorzata Carpenter Subjective: Hospital Summary: 64 YO female w/PMH HTN, DVTs on xarelto, Bilateral lower venous insufficiency, HOGAN, OA bilateral knees. Patient presented to [facility] ED on 11/24/2024 from home with C/O weakness and lethargy. Per patient baseline poor mobility 2/2 OA knees which led to her residential 1 month ago. Patient reports decreased PO intake, lethargy and generalized weakness which had worsening the days leading up to admit. Per reports the patient has been sitting in her recliner incontinent of stool and urine for 4 days unable to get out of chair. Upon arrival to the ED, patient alert and oriented with normal O2 sats . Vitals of note included BP 82/51, HR 58, Temp 35.8, RR 18. Patient was given Sepsis bolus and was ultimately started on pressors. Patient was broadly cultured including wounds cultures to LLE wound. ICU consulted and patient was admitted to ICU with a surgery consult for possible debridement of wound. 11/25 Ongoing pressor requirement of Norepinephrine and vasopressin. Arterial line and CVC placed. Ongoing hypokalemia requirement frequent replacement. Ongoing periods of bradycardia with HR in the low 50's 11/26 Decreasing pressors requirement. 7-10mcg/min. Patient with improved mentation. Bicarb drip initiated for ongoing NAGMA. Ongoing hypokalemia. Patient Patient evaluated per cardiology for ongoing periods of bradycardia with no intervention at this time. 11/27 Uneventful night. Hgb 6.8 transfused 1 unit PRBC. Vasopressin weaned to off. Improving mentation and answering questions. Patient eating PO diet. 11/28 Pending anemia work up. Patient reports depression and requests to see psychiatry. Started on bupropion Patient is refusing to turn and get out of bed. Very resistant to any physical activity. Emotional support given Interval Events: Patient alert and oriented x3. Reinforced need to ambulate and get up in the chair. Emotional support given. Patient started on bupropion and reinforced the need for outpatient talk therapy. Scheduled Meds: acetaminophen, 1,000 mg, Oral, q8h buPROPion SR, 100 mg, Oral, BID chlorhexidine, , Topical, Daily collagenase, , Topical, Daily [Held by provider] enoxaparin, 40 mg, SubCUTAneous, q24h folic acid, 1 mg, Oral, Daily Hydrocortisone Sod Suc (PF), 50 mg, IntraVENous, q8h miconazole, , Topical, BID pantoprazole, 40 mg, Oral, Daily Or pantoprazole (ProtoNix) 40 mg in sodium chloride (PF) 0.9 % 10 mL injection, 40 mg, IntraVENous, Daily Petrolatum, , Topical, Daily Petrolatum, , Topical, BID piperacillin-tazobactam, 4,500 mg, IntraVENous, q6h sodium chloride 0.9%, 5-40 mL, IntraCATHeter, q8h stomahesive in petrolatum, , Topical, q8h Continuous Infusions: Objective: Last Vitals: BP MAP 117/55 (11/29/24 09) 73 (11/29/24 09) Arterial BP MAP 128/52 (11/28/24 0400) 78 mmHg (11/28/24 040) Temp 36.1 C (97 F) (11/29/24 0745) Pulse 65 (11/29/24 09) Resp 16 (11/29/24899) SpO2 100 % (11/29/24899) Weight 133 kg (293 lb 12.8 oz) (11/28/24 06) BMI Body mass index is 47.42 kg/m . I/O: 11/28 699 - 11/29 0659 In: 1552.6 [I.V.:1552.6] Out: 1790 [Urine:1790] Ventilator: NA Oxygen Delivery: Invasive Lines / Tubes / Drains: CVC Triple Lumen 11/25/24 Right Internal jugular (Active) Number of days: 2 Urethral Catheter (Active) Number of days: 2 Arterial Line 11/25/24 Right Radial (Active) Number of days: 2 Central Line Indication: Inadequate peripheral access despite documented ultrasound attempts AND unable to place extended dwell PIV Delgado Indications: NA - patient does not have a Delgado catheter Restraints: NA - patient is not restrained. Wounds: Wound/Incision 11/24/24 Pressure Injury Flank Left;Upper (Active) Date First Assessed/Time First Assessed: 11/24/242231 Present on Original Admission: Yes Primary Wound Type: Pressure Injury Location: Flank Wound Location Orientation: Left;Upper Wound/Incision 11/24/24 Pressure Injury Flank Right;Upper (Active) Date First Assessed/Time First Assessed: 11/24/242232 Primary Wound Type: Pressure Injury Location: Flank Wound Location Orientation: Right;Upper Wound/Incision 11/24/24 Pressure Injury Leg Anterior;Left;Proximal;Upper (Active) Date First Assessed/Time First Assessed: 11/24/242232 Primary Wound Type: Pressure Injury Location: Leg Wound Location Orientation: Anterior;Left;Proximal;Upper Wound/Incision 11/24/24 Pressure Injury Leg Anterior;Proximal;Right;Upper (Active) Date First Assessed/Time First Assessed: 11/24/242232 Primary Wound Type: Pressure Injury Location: Leg Wound Location Orientation: Anterior;Proximal;Right;Upper Wound/Incision 11/24/24 Venous Ulcer Calf Anterior;Left (Active) Date First Assessed/Time First Assessed: 11/24/242233 Primary Wound Type: Venous Ulcer Location: Calf Wound Location Orientation: Anterior;Left Wound/Incision 11/24/24 Pressure Injury Buttock (Active) Date First Assessed/Time First Assessed: 11/24/242240 Primary Wound Type: Pressure Injury Location: Buttock Wound/Incision 11/24/24 Pressure Injury Buttock Left (Active) Date First Assessed/Time First Assessed: 11/24/242246 Primary Wound Type: Pressure Injury Location: Buttock Wound Location Orientation: Left Wound/Incision 11/26/24 Pressure Injury Heel Right (Active) Date First Assessed/Time First Assessed: 11/26/24 0800 Primary Wound Type: Pressure Injury Location: Heel Wound Location Orientation: Right Wound/Incision 11/27/24 Skin Tear Calf Anterior;Right (Active) Date First Assessed/Time First Assessed: 11/27/24 2130 Present on Original Admission: No Primary Wound Type: Skin Tear Location: Calf Wound Location Orientation: Anterior;Right Constitutional: General Appearance []WDWN [x]Obese []Cachectic []Thin [x]Ill Eyes: Inspection of Pupils/Irises Pupils round and react: [x]Yes []No Sclera: []Icteric []Non-Icteric Inspection of Conjunctiva/Lids Conjunctiva: [x]Injected []Non-Injected Lids: [x]Intact []Lesion Present ENT/Mouth: External Inspection of ears/nose [x] Normal [] Scar/Lesion/Mass Inspection of teeth/lips/gums Dentition: [][place] Teeth []Dentures Lips/Gums: [x]Intact []Lesion Present Mucosa: [x][place] [x]Moist []Dry Neck: External Appearance Overall Appearance: [x]Normal []Lesion/Mass/Crepitus Present Trachea midline: [x]Yes []No Thyroid [x]Normal []Enlarged []Tender []Mass []Absent Respiratory: Respiratory effort []Labored [x]Non-Labored [] Mechanically-Ventilated Auscultation [x]Clear []Crackles []Wheezes []Rhonchi Cardiovascular: Auscultation Rate: [x]Regular []Irregular []Tachycardia []Bradycardia Rhythm: [x]Regular []Irregular Murmur: []Present []Absent Extremities Peripheral Edema: [x]Present []Absent Varicosities: []Present []Absent RLE 3+ and LLE 2+ Gastrointestinal: Abdomen Palpation: [x]Soft []Firm []Tender [x]Non-Tender []Distended [x]Non-distended Mass: []Present []Absent Bowel Sounds: [x]Present []Absent Hernia: []Present []Absent Liver/Spleen: []Hepatosplenomegaly []Organomegaly Absent Musculoskeletal: Inspection of Digits and Nails Cyanosis: []Present [x]Absent Clubbing: []Present [x]Absent Ischemia: []Present [x]Absent Infection: [x]Present []Absent Excoriation to groin, beneath breasts, gluteal cleft, large wound to medial adam Extremities RUSSO Equally: ([x]RUE [x]RLE [x]LUE [x]LLE) Strength/Tone: Intact and Normal ([]RUE []RLE []LUE []LLE) Skin: Inspection []Normal []Rash []Lesion []Ulcer Palpation [x]Warm []Cool [x]Dry []Clammy []Nodules []Induration []Skin-tightening Cap-Refill: [x] <3 sec [] >3 seconds (delayed) Neurologic: GCS EYE: 4 - Opens spontaneously GCS MOTOR: 6 - Obeys commands for movement GCS VERBAL: 5 - Oriented to person, place, time Total GCS: 15 [x] Sensation grossly intact Psych: Mental Status Alert: [x]Yes [] No Oriented: []x0 []X1 []X2 [x]x3 Mood/Affect [x]Normal []Flat []Agitated []Depressed []Anxious []Calm []Sedated []NAD [facility] within last 24 hours- BMP: Recent Labs 11/28/24 0403 11/28/24 12111/28/24202511/29/24 0502 NA 139 139 135* 137 K 3.9 3.5 3.7 3.6 CL 110* 108* 108* 109* CO2 23 23 22* 22* BUN 16 15 14 12 CREATININE 0.58 0.56* 0.57 0.53* CALCIUM 8.5* 8.5* 8.6* 8.4* MG 2.2 1.8 -- 1.7 PHOS 1.4* 1.8* -- 2.1* LFTs: Recent Labs 11/27/24 0540 11/28/24 040 AST 18 -- ALT 10 -- PROT 5.1* -- ALBUMIN 2.3* -- BILITOT 1.0 1.0 ALKPHOS 82 -- Glucose: Recent Labs 11/26/24 2336 11/27/24 0540 11/27/24 1159 11/27/24200911/28/24 0403 11/28/24 12111/28/246 11/29/24 0502 GLUCOSE 188* 168* 151* 150* 137* 137* 125* 108 Procal: Recent Labs 11/27/24 1159 PROCAL 0.12* CBC: Recent Labs 11/27/24 0540 11/27/24 1538 11/28/24 0403 11/29/24 0502 WBC 8.4 -- 7.3 7.1 HGB 6.8* 7.3* 7.5* 7.4* HCT 19.6* 21.1* 21.7* 22.8* PLT 103* -- 69* 61* MCV 99.5* -- 99.1* 102.2* RDW 13.5 -- 16.4* 16.5* ABGs: No results for input(s): "PHART", "TLH8GCI", "PO2ART", "JCE6LVG", "SO2ART", "D3KMUZLO" in the last 72 hours. Lactic Acid: No results for input(s): "LACTATE" in the last 72 hours. INR: No results for input(s): "INR" in the last 72 hours. Cardiac Injury Profile: No results for input(s): "CKTOTAL", "CKMB", "TROPONINI" in the last 72 hours. Labs in Last 3 months: Lab Results Component Value Date TSH 0.57 11/26/2024 Microbiology- Urine Cx: Lab Results Component Value Date URINECX Normal urogenital rula present 11/24/2024 URINECX 10,000-50,000 CFU/mL Escherichia coli (A) 11/24/2024 Blood Cx: Lab Results Component Value Date BLOODCX No growth at 24 hours 11/28/2024 BLOODCX No growth at 24 hours 11/28/2024 Sputum Cx: No results found for: RESPCULT Gram Stain: Lab Results Component Value Date LABGRAM (A) 11/24/2024 Moderate Polymorphonuclear leukocytes per low power field LABGRAM Moderate Gram positive cocci (A) 11/24/2024 LABGRAM Few Gram positive bacilli (A) 11/24/2024 LABGRAM Few Gram negative bacilli (A) 11/24/2024 PNA PCR: No results found for: HUMANMETAPNE COVID19: No results found for: COVID19 Legionella Ag: No results found for: "LEGIONELLAPN" Strep Ag: No results for input(s): "STREPPNEUMO" in the last 72 hours. Imaging- Microbiology- 11/24 blood cultures 1/2 + MSSE (likely contaminant) 11/24 wound culture - pending 11/24 urine culture - + e. Coli (10-50k CFU) Imaging- 11/24 XR left tib/fib FINDINGS: No fracture or dislocation of the left tibia or fibula is identified. Generalized soft tissue swelling of the left lower extremity is noted. There is no evidence of soft tissue gas or radiopaque foreign body. Scattered soft tissue calcification is noted. There is a plantar heel spur. 11/24 abdominal ultrasound Impression: 1. Cholelithiasis and sludge without sonographic evidence of acute cholecystitis. 2. Mild hepatomegaly with probable hepatic steatosis. 3. Nonobstructing right renal calculi. 11/25 TTE Technically difficult study. Left Ventricle: Left ventricle size is normal. Normal wall thickness. Normal left ventricular systolic function. The EF by visual approximation is 65%. Normal wall motion. Normal diastolic function. Right Ventricle: Not well visualized. Right ventricle size is normal. Normal systolic function. Aortic Valve: Trileaflet. No cusp thickening. No cusp calcification. No regurgitation. No stenosis. Mitral Valve: Valve structure is normal. No regurgitation. No stenosis noted. Tricuspid Valve: Valve structure is normal. Mild (1+) regurgitation. Normal RVSP. RVSP is 26 mmHg. Left Atrium: Not well visualized but left atrium size is probably normal. Interatrial Septum: No interatrial shunt visualized on color Doppler. Right Atrium: Not well visualized but right atrium size is probably normal. Aorta: Normal sized sinuses of Valsalva and ascending aorta. Pericardium: Evidence of prominent epicardial fat. No pericardial effusion. IVC/SVC: IVC diameter is normal and decreases less than 50% during inspiration; therefore the estimated right atrial pressure is intermediate (~8 mmHg). Assessment and Plan: Principal Problem: Wound of left lower extremity, initial encounter Assessment: Septic and hypovolemic Shock -Pressors weaned to off for over 24 hours -Continue Pip/tazo -vancomycin stopped per sterwardship -1st blood cultures + staph epidermidis--> usually contaminant but 2/2 many wounds repeat blood cultures pending -Urine + e.coli -Afebrile and SBP [id number] Bradycardia -HR 65-70 overnight -Concerns for REJI --> pulm hypertension as contributing factor -would benefit from outpatient sleep study -asymptomatic with HR Bilateral lower extremity edema HX DVT on xarelto -Known hx lymphedema of bilateral lower extr -severe malnutrition w/low albumin and total protein--> increased lower extr edema -Vascular insufficiency with venous stasis and brian wound -would benefit from lymphedema wraps -Risk benefit of maintaining xarelto w/thrombocytopenia -PT/OT for evals -Venous duplex negative for DVTs HOGAN HX Hyperbilirubinemia--> resolved -Stable -improved labs with hydration -Xarelto held 2/2 low plt count -trend labs WILIAN--> resolved NAGMA--> resolved -Improving -Likely baseline pre-renal -Improved BUN and Scr with fluids and increasing BP -Delgado to SD for I/O and wounds -Bicarb gtt off -avoid nephrotoxic agents -maintain MAP >65 -Strict I/O -daily weights Macrocytic Anemia--> multifactorial Thrombocytopenia - hgb 7.4 - platelets 61 -Likely dietary, chronic illness, poor protein intake, HOGAN -hemolysis labs remarkable -No signs of active bleeding -Hold DVT prophy Malnutrition Refeeding syndrome--> Hypokalemia, hypophosphatemia, hypomagnesia -regular diet -Supplements with meals -Consult to headliner installer -trend labs replete lytes PRN -K replacement Q8H -Bicarb gtt stopped -trend labs Depression Anxiety -Consult to psychiatry -Would benefit from outpatient talk therapy -started on bupropion 100mg BID LLE venous wound Unstageable pressure injury to coccyx Fungal dermatitis -LLE wound on 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 would that acutely worsened -Consult to gen surgery for debridement -Consult to wound care Debility -PT/OT eval and tx -up to chair daily -Consult to social work and TCC for DC planning FEN -Trend labs -replete lytes PRN -Regular diet with nutritional supplement -Strict I/O -Daily weights Code status -Full code GI Prophylaxis: Pantoprazole IV DVT Prophylaxis: hold anticoagulation 2/2 PLT <[address] Carpenter Disposition: Transfer to [facility] Time spent preparing to see the patient, obtaining/reviewing separately obtained history, completing an appropriate medical examination of the patient, ordering medications/tests/procedures, documenting clinical information on the EMR, and/or coordinating care is a subsequent visit: 50 minutes (Level III). Vancomycin therapy has been discontinued by [address] on 11/28/24. Thank you for the consult. Pharmacy signing off for vancomycin dosing. Lindsey Vazquez RPh, PharmD Date: 11/28/24 Time: 3:06 PM Pharmacy to Dose Vancomycin - Progress Note Lab Results Component Value Date CREATININE 0.58 11/28/2024 BUN 16 11/28/2024 WBC 7.3 11/28/2024 VANCOTROUGH 29.5 11/28/2024 Doses, serum creatinine, and vancomycin levels interfaced automatically to [facility] and data has been analyzed and interpreted. Infectious Diagnosis: SSTI Est CrCl: >150 mL/min (Cockcroft-Gault) Assessment: Current regimen vancomycin 1500 mg every 18 hours (11.3 mg/kg) Predicted AUC = 548 mg/L*hr (goal 400-600 mg/L*hr) PAUC = 100% (probability that AUC is >400 mg/L*hr) Pconc = 1% (probability that Ctrough is above 20 mcg/mL (toxicity)) Plan: Is the current dose therapeutic? [x] Yes - obtain next level on 11/30. Trend serum creatinine. Trend AUC using Bayesian Modeling. Orders placed. DATE: 11/28/24 TIME: 7:48 AM Isabela Marc PharmD Clinical Pharmacist Available via Secure Chat ICU Progress Note Name: Maxwell Collier : 1960(64 y.o.) Date: 11/28/24 Team: MICU Attending: Malgorzata Carpenter Subjective: Hospital Summary: 64 YO female w/PMH HTN, DVTs on xarelto, Bilateral lower venous insufficiency, HOGAN, OA bilateral knees. Patient presented to [facility] ED on 11/24/2024 from home with C/O weakness and lethargy. Per patient baseline poor mobility 2/2 OA knees which led to her residential 1 month ago. Patient reports decreased PO intake, lethargy and generalized weakness which had worsening the days leading up to admit. Per reports the patient has been sitting in her recliner incontinent of stool and urine for 4 days unable to get out of chair. Upon arrival to the ED, patient alert and oriented with normal O2 sats . Vitals of note included BP 82/51, HR 58, Temp 35.8, RR 18. Patient was given Sepsis bolus and was ultimately started on pressors. Patient was broadly cultured including wounds cultures to LLE wound. ICU consulted and patient was admitted to ICU with a surgery consult for possible debridement of wound. 11/25 Ongoing pressor requirement of Norepinephrine and vasopressin. Arterial line and CVC placed. Ongoing hypokalemia requirement frequent replacement. Ongoing periods of bradycardia with HR in the low 50's 11/26 Decreasing pressors requirement. 7-10mcg/min. Patient with improved mentation. Bicarb drip initiated for ongoing NAGMA. Ongoing hypokalemia. Patient Patient evaluated per cardiology for ongoing periods of bradycardia with no intervention at this time. 11/27 Uneventful night. Hgb 6.8 transfused 1 unit PRBC. Vasopressin weaned to off. Improving mentation and answering questions. Patient eating PO diet. Interval Events: 11/28 Pending anemia work up. Patient reports depression and requests to see psychiatry. Started on bupropion Patient is refusing to turn and get out of bed. Very resistant to any physical activity. Emotional support given Scheduled Meds: acetaminophen, 1,000 mg, Oral, q8h chlorhexidine, , Topical, Daily collagenase, , Topical, Daily [Held by provider] enoxaparin, 40 mg, SubCUTAneous, q24h folic acid, 1 mg, Oral, Daily Hydrocortisone Sod Suc (PF), 50 mg, IntraVENous, q8h miconazole, , Topical, BID mupirocin, 1 Application, Nasal, BID pantoprazole, 40 mg, Oral, Daily Or pantoprazole (ProtoNix) 40 mg in sodium chloride (PF) 0.9 % 10 mL injection, 40 mg, IntraVENous, Daily Petrolatum, , Topical, Daily piperacillin-tazobactam, 4,500 mg, IntraVENous, q6h potassium chloride, 40 mEq, Oral, TID sodium chloride 0.9%, 5-40 mL, IntraCATHeter, q8h stomahesive in petrolatum, , Topical, q8h vancomycin, 1,500 mg, IntraVENous, q18h Continuous Infusions: Objective: Last Vitals: BP MAP 108/69 (11/27/24 1415) 74 (11/27/24 1202) Arterial BP MAP 128/52 (11/28/24 0400) 78 mmHg (11/28/24 0400) Temp 36.1 C (97 F) (11/28/24 0400) Pulse 69 (11/28/24 0400) Resp 15 (11/28/24 0400) SpO2 99 % (11/28/24 0400) Weight 129 kg (284 lb 3.2 oz) (11/27/24 0600) BMI Body mass index is 45.87 kg/m . I/O: 11/27 699 - 11/28 658 In: 1207.5 [I.V.:907.5] Out: 1310 [Urine:1310] Ventilator: NA Oxygen Delivery: Invasive Lines / Tubes / Drains: CVC Triple Lumen 11/25/24 Right Internal jugular (Active) Number of days: 2 Urethral Catheter (Active) Number of days: 2 Arterial Line 11/25/24 Right Radial (Active) Number of days: 2 Central Line Indication: Inadequate peripheral access despite documented ultrasound attempts AND unable to place extended dwell PIV Delgado Indications: NA - patient does not have a Delgado catheter Restraints: NA - patient is not restrained. Wounds: Wound/Incision 11/24/24 Pressure Injury Flank Left;Upper (Active) Date First Assessed/Time First Assessed: 11/24/242231 Present on Original Admission: Yes Primary Wound Type: Pressure Injury Location: Flank Wound Location Orientation: Left;Upper Wound/Incision 11/24/24 Pressure Injury Flank Right;Upper (Active) Date First Assessed/Time First Assessed: 11/24/242232 Primary Wound Type: Pressure Injury Location: Flank Wound Location Orientation: Right;Upper Wound/Incision 11/24/24 Pressure Injury Leg Anterior;Left;Proximal;Upper (Active) Date First Assessed/Time First Assessed: 11/24/242232 Primary Wound Type: Pressure Injury Location: Leg Wound Location Orientation: Anterior;Left;Proximal;Upper Wound/Incision 11/24/24 Pressure Injury Leg Anterior;Proximal;Right;Upper (Active) Date First Assessed/Time First Assessed: 11/24/242232 Primary Wound Type: Pressure Injury Location: Leg Wound Location Orientation: Anterior;Proximal;Right;Upper Wound/Incision 11/24/24 Venous Ulcer Calf Anterior;Left (Active) Date First Assessed/Time First Assessed: 11/24/242233 Primary Wound Type: Venous Ulcer Location: Calf Wound Location Orientation: Anterior;Left Wound/Incision 11/24/24 Pressure Injury Buttock (Active) Date First Assessed/Time First Assessed: 11/24/242240 Primary Wound Type: Pressure Injury Location: Buttock Wound/Incision 11/24/24 Pressure Injury Buttock Left (Active) Date First Assessed/Time First Assessed: 11/24/242246 Primary Wound Type: Pressure Injury Location: Buttock Wound Location Orientation: Left Wound/Incision 11/26/24 Pressure Injury Heel Right (Active) Date First Assessed/Time First Assessed: 11/26/24 08 Primary Wound Type: Pressure Injury Location: Heel Wound Location Orientation: Right Wound/Incision 11/27/24 Skin Tear Calf Anterior;Right (Active) Date First Assessed/Time First Assessed: 11/27/24 213 Present on Original Admission: No Primary Wound Type: Skin Tear Location: Calf Wound Location Orientation: Anterior;Right Constitutional: General Appearance []WDWN [x]Obese []Cachectic []Thin [x]Ill Eyes: Inspection of Pupils/Irises Pupils round and react: [x]Yes []No Sclera: []Icteric []Non-Icteric Inspection of Conjunctiva/Lids Conjunctiva: [x]Injected []Non-Injected Lids: [x]Intact []Lesion Present ENT/Mouth: External Inspection of ears/nose [x] Normal [] Scar/Lesion/Mass Inspection of teeth/lips/gums Dentition: [][place] Teeth []Dentures Lips/Gums: [x]Intact []Lesion Present Mucosa: [x][place] [x]Moist []Dry Neck: External Appearance Overall Appearance: [x]Normal []Lesion/Mass/Crepitus Present Trachea midline: [x]Yes []No Thyroid [x]Normal []Enlarged []Tender []Mass []Absent Respiratory: Respiratory effort []Labored [x]Non-Labored [] Mechanically-Ventilated Auscultation [x]Clear []Crackles []Wheezes []Rhonchi Cardiovascular: Auscultation Rate: [x]Regular []Irregular []Tachycardia []Bradycardia Rhythm: [x]Regular []Irregular Murmur: []Present []Absent Extremities Peripheral Edema: [x]Present []Absent Varicosities: []Present []Absent RLE 3+ and LLE 2+ Gastrointestinal: Abdomen Palpation: [x]Soft []Firm []Tender [x]Non-Tender []Distended [x]Non-distended Mass: []Present []Absent Bowel Sounds: [x]Present []Absent Hernia: []Present []Absent Liver/Spleen: []Hepatosplenomegaly []Organomegaly Absent Musculoskeletal: Inspection of Digits and Nails Cyanosis: []Present [x]Absent Clubbing: []Present [x]Absent Ischemia: []Present [x]Absent Infection: [x]Present []Absent Excoriation to groin, beneath breasts, gluteal cleft, large wound to medial adam Extremities RUSSO Equally: ([x]RUE [x]RLE [x]LUE [x]LLE) Strength/Tone: Intact and Normal ([]RUE []RLE []LUE []LLE) Skin: Inspection []Normal []Rash []Lesion []Ulcer Palpation [x]Warm []Cool [x]Dry []Clammy []Nodules []Induration []Skin-tightening Cap-Refill: [x] <3 sec [] >3 seconds (delayed) Neurologic: GCS EYE: 4 - Opens spontaneously GCS MOTOR: 6 - Obeys commands for movement GCS VERBAL: 5 - Oriented to person, place, time Total GCS: 15 [x] Sensation grossly intact Psych: Mental Status Alert: [x]Yes [] No Oriented: []x0 []X1 []X2 [x]x3 Mood/Affect [x]Normal []Flat []Agitated []Depressed []Anxious []Calm []Sedated []NAD [facility] Labs within last 24 hours- BMP: Recent Labs 11/26/24 0631 11/26/24 1200 11/27/24 0540 11/27/24 11511/27/24200911/28/24 0403 NA 138 < > 140 141 138 139 K 2.4* < > 2.4* 3.4* 4.0 3.9 CL 109* < > 108* 108* 109* 110* CO2 16* < > 22* 23 21* 23 BUN 32* < > 17 16 17 16 CREATININE 0.67 < > 0.59 0.54* 0.60 0.58 CALCIUM 8.3* < > 8.3* 8.3* 8.3* 8.5* MG 1.8 -- 1.5* -- -- 2.2 PHOS 2.3 -- <1.2* -- -- 1.4* < > = values in this interval not displayed. LFTs: Recent Labs 11/26/24 0611/27/24 0540 11/28/24 0403 AST 21 18 -- ALT 9 10 -- PROT 5.7* 5.1* -- ALBUMIN 2.5* 2.3* -- BILITOT 1.3* 1.0 1.0 ALKPHOS 91 82 -- Glucose: Recent Labs 11/26/24 0631 11/26/24 1200 11/26/24 1731 11/26/24 2336 11/27/24 0540 11/27/24 11511/27/24200911/28/24 0403 GLUCOSE 165* 180* 180* 188* 168* 151* 150* 137* Procal: Recent Labs 11/27/241158 PROCAL 0.12* CBC: Recent Labs 11/26/24 0631 11/27/24 0540 11/27/24 1538 11/28/24 0403 WBC 9.1 8.4 -- 7.3 HGB 8.1* 6.8* 7.3* 7.5* HCT 23.9* 19.6* 21.1* 21.7* PLT 129* 103* -- 69* MCV 101.3* 99.5* -- 99.1* RDW 13.3 13.5 -- 16.4* ABGs: Recent Labs 11/25/24 1653 PHART 7.407 FCS3DVW 25.4* PO2ART 111.8* [id number] 15.6* [id number] None (Room Air) Lactic Acid: No results for input(s): "LACTATE" in the last 72 hours. INR: No results for input(s): "INR" in the last 72 hours. Cardiac Injury Profile: No results for input(s): "CKTOTAL", "CKMB", "TROPONINI" in the last 72 hours. Labs in Last 3 months: Lab Results Component Value Date TSH 0.57 11/26/2024 Microbiology- Urine Cx: Lab Results Component Value Date URINECX Normal urogenital rula present 11/24/2024 URINECX 10,000-50,000 CFU/mL Escherichia coli (A) 11/24/2024 Blood Cx: Lab Results Component Value Date BLOODCX Staphylococcus epidermidis (AA) 11/24/2024 BLOODCX No growth at 72 hours 11/24/2024 Sputum Cx: No results found for: RESPCULT Gram Stain: Lab Results Component Value Date LABGRAM (A) 11/24/2024 Moderate Polymorphonuclear leukocytes per low power field LABGRAM Moderate Gram positive cocci (A) 11/24/2024 LABGRAM Few Gram positive bacilli (A) 11/24/2024 LABGRAM Few Gram negative bacilli (A) 11/24/2024 PNA PCR: No results found for: HUMANMETAPNE COVID19: No results found for: COVID19 Legionella Ag: No results found for: "LEGIONELLAPN" Strep Ag: No results for input(s): "STREPPNEUMO" in the last 72 hours. Imaging- Microbiology- 11/24 blood cultures 1/2 + MSSE (likely contaminant) 11/24 wound culture - pending 11/24 urine culture - + e. Coli (10-50k CFU) Imaging- 11/24 XR left tib/fib FINDINGS: No fracture or dislocation of the left tibia or fibula is identified. Generalized soft tissue swelling of the left lower extremity is noted. There is no evidence of soft tissue gas or radiopaque foreign body. Scattered soft tissue calcification is noted. There is a plantar heel spur. 11/24 abdominal ultrasound Impression: 1. Cholelithiasis and sludge without sonographic evidence of acute cholecystitis. 2. Mild hepatomegaly with probable hepatic steatosis. 3. Nonobstructing right renal calculi. 11/25 TTE Technically difficult study. Left Ventricle: Left ventricle size is normal. Normal wall thickness. Normal left ventricular systolic function. The EF by visual approximation is 65%. Normal wall motion. Normal diastolic function. Right Ventricle: Not well visualized. Right ventricle size is normal. Normal systolic function. Aortic Valve: Trileaflet. No cusp thickening. No cusp calcification. No regurgitation. No stenosis. Mitral Valve: Valve structure is normal. No regurgitation. No stenosis noted. Tricuspid Valve: Valve structure is normal. Mild (1+) regurgitation. Normal RVSP. RVSP is 26 mmHg. Left Atrium: Not well visualized but left atrium size is probably normal. Interatrial Septum: No interatrial shunt visualized on color Doppler. Right Atrium: Not well visualized but right atrium size is probably normal. Aorta: Normal sized sinuses of Valsalva and ascending aorta. Pericardium: Evidence of prominent epicardial fat. No pericardial effusion. IVC/SVC: IVC diameter is normal and decreases less than 50% during inspiration; therefore the estimated right atrial pressure is intermediate (~8 mmHg). Assessment and Plan: Principal Problem: Wound of left lower extremity, initial encounter Assessment: Septic and hypovolemic Shock -Pressors weaned to off This AM -Continue Pip/tazo -vancomycin stopped per sterwardship -1st blood cultures + staph epidermidis--> usually contaminant but 2/2 many wounds repeat blood cultures pending -Urine + e.coli -Afebrile and SBP [id number] Bradycardia -HR 65-70 overnight -Concerns for REJI --> pulm hypertension as contributing factor -would benefit from outpatient sleep study -asymptomatic with HR Bilateral lower extremity edema HX DVT on xarelto -Known hx lymphedema of bilateral lower extr -severe malnutrition w/low albumin and total protein--> increased lower extr edema -Vascular insufficiency with venous stasis and brian wound -would benefit from lymphedema wraps -Risk benefit of maintaining xarelto w/thrombocytopenia -PT/OT for evals -Venous duplex negative for DVTs HOGAN HX Hyperbilirubinemia--> resolved -Stable -improved labs with hydration -Xarelto held 2/2 low plt count -trend labs WILIAN--> resolved NAGMA--> resolved -Improving -Likely baseline pre-renal -Improved BUN and Scr with fluids and increasing BP -Delgado to SD for I/O and wounds -Bicarb gtt off -avoid nephrotoxic agents -maintain MAP >65 -Strict I/O -daily weights Macrocytic Anemia--> multifactorial Thrombocytopenia - hgb 7.4 - platelets 61 -Likely dietary, chronic illness, poor protein intake, HOGAN -hemolysis labs remarkable -No signs of active bleeding -Hold DVT prophy Malnutrition Refeeding syndrome--> Hypokalemia, hypophosphatemia, hypomagnesia -regular diet -Supplements with meals -Consult to headliner installer -trend labs replete lytes PRN -K replacement Q8H -Bicarb gtt stopped -trend labs Depression Anxiety -Consult to psychiatry -Would benefit from outpatient talk therapy -started on bupropion 100mg BID LLE venous wound Unstageable pressure injury to coccyx Fungal dermatitis -LLE wound on 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 would that acutely worsened -Consult to gen surgery for debridement -Consult to wound care Debility -PT/OT eval and tx -up to chair daily -Consult to social work and TCC for DC planning FEN -Trend labs -replete lytes PRN -Regular diet with nutritional supplement -Strict I/O -Daily weights Code status -Full code GI Prophylaxis: Pantoprazole IV DVT Prophylaxis: hold anticoagulation 2/2 PLT <[address] Carpenter Disposition: Remain in ICU Status Critical Care Time: 45 minutes Total critical care time caring for this patient with life threatening, unstable organ failure, including direct patient contact, management of life support systems, review of data including imaging and labs, discussions with other team members and physicians, excluding procedures. [facility] Respiratory Care Department Progress Note Comment or reasoning for refusal: Patient was seen in attempts to fulfill CPAP/BiPAP/AutoPAP order. Patient refused PAP therapy/study at this time. Patient was educated on medical need and reasoning for physician order to ensure patient was making an informed medical decision. All of the patient's questions were answered at this time and patient was informed that if the patient changes their mind regarding wearing PAP to hit their "call light" or inform their nurse to contact Respiratory. A second, consecutive night of refusing PAP therapy/study results in order completion in the EMR. If future CPAP/BiPAP/AutoPAP therapy or study is indicated please place another order in the EMR and the assigned Respiratory Therapist will reattempt to fulfill orders. Reason for refusal: refused Thank you for involving Respiratory in the care of this patient, Pharmacy to Dose Vancomycin - Progress Note Lab Results Component Value Date CREATININE 0.54 (L) 11/27/2024 BUN 16 11/27/2024 WBC 8.4 11/27/2024 VANCOTROUGH 17.6 11/26/2024 Doses, serum creatinine, and vancomycin levels interfaced automatically to [facility] and data has been analyzed and interpreted. Infectious Diagnosis: SSTI Est CrCl: >90 mL/min (Cockcroft-Gault) Assessment: Current regimen vancomycin 1500 mg every 18 hours (12 mg/kg) Predicted AUC = 450 mg/L*hr (goal 400-600 mg/L*hr) PAUC = 90% (probability that AUC is >400 mg/L*hr) Pconc = 0% (probability that Ctrough is above 20 mcg/mL (toxicity)) Plan: Is the current dose therapeutic? [x] Yes - obtain next level on 11/28/24 unless predicted AUC is sub-/supra-therapeutic or change in serum creatinine. Trend serum creatinine. Trend AUC using Bayesian Modeling. Orders placed. DATE: 11/27/24 TIME: 2:59 PM Jeb Mckeon RPh, PharmD Clinical Pharmacist Available via Secure Chat Images from the original note were not included. ICU Progress Note Name: Maxwell Collier : 1960(64 y.o.) Date: 11/27/24 Team: MICU Attending: Dr. Carpenter Subjective: Chief Complaint: weakness, lethargy Hospital Summary: 64yo female with pmhx HTN, DVTs on xarelto, BLE venous insufficiency, OA of bilateral knees, HOGAN presented to [facility] ED on 11/24/24 from home with complaint of lethargy, weakness. Per patient, she has very poor mobility due to OA of knees, causing her to retire last month. She also has been feeling weak, lethargic, and had poor appetite that has worsened this past week. She reportedly was lying in her recliner and was unable to get up, and was stuck there for at least 4 days. She was brought in via EMS incontinent of stool and urine. She was awake and oriented however and saturating well on room air. She was found to be hypotensive despite 3L sepsis bolus. Infectious work-up collected including blood cultures and culture of LLE wound. Patient states this wound has been chronic but has gotten much worse lately. She also endorsed increased swelling in her legs than normal. Surgery consulted for possible wound debridement, they recommend deferring to wound care services. Patient admitted to T3 MICU for management of acute hypovolemic vs septic shock requiring pressor support. 11/25 On vaso + norepi. Arterial line, central line placed. Ongoing potassium replacement for K <3. Intermittent bradycardia that appeared sinus with PACs. 11/26 Pressor requirements decreasing, norepi down to 7-10mcg/min. Patient more awake and alert. Started bicarb drip for persistent nagma when K reached above 3. Cardiology evaluated for transient bradycardia, no intervention required, continue to optimize fluid/electrolytes. Interval Events: No acute events documented overnight. Hgb down-trended to 6.8, plan to transfuse 1 unit PRBC. Vaso off, norepi at 3mcg/min and can likely wean off. Patient much more awake and conversational this morning. She is going to attempt to eat breakfast today (PO intake consisted mostly of ensure supplements yesterday). Her overall soreness has improved. She denies shortness of breath, chest pain, nausea, vomiting, abdominal pain, chills. Scheduled Meds:acetaminophen, 1,000 mg, Oral, q8h chlorhexidine, , Topical, Daily collagenase, , Topical, Daily enoxaparin, 40 mg, SubCUTAneous, q24h folic acid, 1 mg, Oral, Daily Hydrocortisone Sod Suc (PF), 100 mg, IntraVENous, q8h magnesium sulfate, 4,000 mg, IntraVENous, Once miconazole, , Topical, BID mupirocin, 1 Application, Nasal, BID pantoprazole, 40 mg, Oral, Daily Or pantoprazole (ProtoNix) 40 mg in sodium chloride (PF) 0.9 % 10 mL injection, 40 mg, IntraVENous, Daily Petrolatum, , Topical, Daily piperacillin-tazobactam, 4,500 mg, IntraVENous, q6h potassium chloride, 40 mEq, Oral, TID potassium chloride, 20 mEq, IntraVENous, q1h potassium phosphates 30 mmol in sodium chloride 0.9 % 100 mL IVPB, 30 mmol, IntraVENous, Once sodium chloride 0.9%, 5-40 mL, IntraCATHeter, q8h stomahesive in petrolatum, , Topical, q8h vancomycin, 1,500 mg, IntraVENous, q18h Continuous Infusions:norepinephrine, 1-100 mcg/min, Last Rate: 3 mcg/min (11/27/24 0625) sodium bicarbonate 150 mEq in dextrose 5 % 1,000 mL infusion, 75 mL/hr, Last Rate: 75 mL/hr (11/26/24 1950) vasopressin in D5W, 0.01-0.03 Units/min, Last Rate: Stopped (11/27/24 031) Objective: Constitutional: General Appearance []Normal appearance [x]Ill-appearing []In acute distress []Well developed/well nourished [x]Obese []Thin []Cachectic Psych: Mental Status Alert: [x]Yes []No Oriented: []x0 []X1 []X2 []X3 [x]X4 Comments: At Baseline []Yes []No [x]Unknown baseline Mood/Affect []Normal [x]Calm [x]NAD []Flat []Depressed []Anxious []Agitated []Sedated Neurologic: GCS EYE: 4 - Opens spontaneously GCS MOTOR: 6 - Obeys commands for movement GCS VERBAL: 5 - Oriented to person, place, time Total GCS: 15 [x]Sensation grossly intact []Sensory deficit: [x]Equal motor function []Focal motor deficit: [x]Clear speech []Dysarthria Comments: Eyes: Inspection of Pupils/Irises Pupils equal, round and reactive: [x]Yes []No EOM Intact [x]Yes []No Sclera: []Icteric [x]Non-Icteric Conjunctiva: []Injected []Non-Injected Drainage present []Yes []No Comments: ENT/Mouth: Inspection of teeth/lips/gums Dentition: []Adequate [x]Poor [][place] Teeth []Dentures Mucosa: []Moist [x]Dry Oral secretions: [] Present [] Copious [] Moderate []Few [] Thick [] Thin Neck: External Appearance Overall Appearance: [x]Normal []Lesion/Mass/Crepitus Present Trachea midline: [x]Yes []No Respiratory: Respiratory effort []Tachypnea []Respiratory depression []Labored [x]Non-Labored Auscultation Right Lung: [x]Clear [] Diminished []Crackles []Wheezes []Rhonchi Left Lung: [x]Clear [] Diminished []Crackles []Wheezes []Rhonchi Supplemental Oxygen [x]None (Room Air) []Nasal cannula []High-flow NC(Sal[place]) []NRB Mask []Heated High-Flow Nasal Cannula []NIV []Mechanical Ventilation Cardiovascular: Auscultation Rate: [x]Normal []Tachycardic []Bradycardic Rhythm: [x]Regular []Irregular Interpretation: SR Murmur: []Present []Absent Peripheral Edema: [x]Present []Absent 3+ RLE, 2+ LLE Gastrointestinal/Genitourinary Abdomen Palpation: [x]Soft []Firm []Tender [x]Non-Tender []Distended [x]Non-distended Hernia: []Present []Absent Bowel Sounds: [x]Present []Absent GI symptoms: []Nausea []Vomiting []Diarrhea []Constipation Pelvis Urine output: [x]Adequate []Oliguria []Anuria Delgado present? [x]Yes []No Urine appearance: [x]Yellow []Janice []Tea-colored [][place]-tinged []Filiberto hematuria [] Sediment []Clots Musculoskeletal: Extremities [x]Moves all extremities equally []Strength/Tone: Intact and Normal [x]Generalized weakness []Focal weakness: Injury/trauma: []Absent []Present Skin: Inspection []Normal []Pale []Rash []Lesion [x]Wound/s Excoriation to groin, beneath breasts, gluteal cleft, large wound to medial adam Palpation [x]Warm []Cool []Hot [x]Dry []Clammy Cap-Refill: [x] <3 sec [] >3 seconds (delayed) I/O: 11/26 0700 - 11/27 0659 In: 3382.2 [I.V.:3382.2] Out: 4760 [Urine:4760] -146 for admit Invasive Lines / Tubes / Drains: Peripheral IV 11/24/24 Left Antecubital (Active) Number of days: 0 Peripheral IV 11/24/24 Right Antecubital (Active) Number of days: 0 Peripheral IV 11/24/24 Anterior;Distal;Left Forearm (Active) Number of days: 0 Central Line Indication: NA - patient does not have a central line Delgado Indications: NA - patient does not have a Delgado catheter Wounds: Wound/Incision 11/24/24 Pressure Injury Flank Left;Upper (Active) Date First Assessed/Time First Assessed: 11/24/242231 Present on Original Admission: Yes Primary Wound Type: Pressure Injury Location: Flank Wound Location Orientation: Left;Upper Wound/Incision 11/24/24 Pressure Injury Flank Right;Upper (Active) Date First Assessed/Time First Assessed: 11/24/242232 Primary Wound Type: Pressure Injury Location: Flank Wound Location Orientation: Right;Upper Wound/Incision 11/24/24 Pressure Injury Leg Anterior;Left;Proximal;Upper (Active) Date First Assessed/Time First Assessed: 11/24/242232 Primary Wound Type: Pressure Injury Location: Leg Wound Location Orientation: Anterior;Left;Proximal;Upper Wound/Incision 11/24/24 Pressure Injury Leg Anterior;Proximal;Right;Upper (Active) Date First Assessed/Time First Assessed: 11/24/242232 Primary Wound Type: Pressure Injury Location: Leg Wound Location Orientation: Anterior;Proximal;Right;Upper Wound/Incision 11/24/24 Venous Ulcer Calf Anterior;Left (Active) Date First Assessed/Time First Assessed: 11/24/242233 Primary Wound Type: Venous Ulcer Location: Calf Wound Location Orientation: Anterior;Left Wound/Incision 11/24/24 Pressure Injury Buttock (Active) Date First Assessed/Time First Assessed: 11/24/242240 Primary Wound Type: Pressure Injury Location: Buttock Wound/Incision 11/24/24 Pressure Injury Buttock Left (Active) Date First Assessed/Time First Assessed: 11/24/242246 Primary Wound Type: Pressure Injury Location: Buttock Wound Location Orientation: Left Oxygen Delivery: Ventilator: Restraints: NA - patient is not restrained. Last Vitals: BP MAP (!) 110/46 (11/26/24 1602) 72 (11/26/24 1602) Arterial BP MAP 121/46 (11/27/24 0700) 67 mmHg (11/27/24 07) Temp (P) 36.3 C (97.4 F) (11/27/24 0400) Pulse 56 (11/27/24 0700) Resp (!) 11 (11/27/24 0700) SpO2 100 % (11/27/24 0700) Weight 129 kg (284 lb 3.2 oz) (11/27/24 06) BMI Body mass index is 45.87 kg/m . [facility] within last 24 hours- BMP: Recent Labs 11/25/24 0452 11/25/24 1352 11/26/24 0631 11/26/24 1200 11/26/24 1731 11/26/24 2336 11/27/24 0540 NA 132* < > 138 < > 136 139 140 K 2.4* < > 2.4* < > 3.2* 3.3* 2.4* CL 105 < > 109* < > 109* 108* 108* CO2 15* < > 16* < > 18* 19* 22* BUN 68* < > 32* < > 27* 23 17 CREATININE 1.02 < > 0.67 < > 0.65 0.59 0.59 CALCIUM 7.5* < > 8.3* < > 8.3* 8.4* 8.3* MG 2.0 -- 1.8 -- -- -- 1.5* PHOS 3.2 -- 2.3 -- -- -- <1.2* < > = values in this interval not displayed. LFTs: Recent Labs 11/24/24 1641 11/24/24 2220 11/26/24 0631 11/27/24 0540 AST 25 -- 21 18 ALT 10 -- 9 10 PROT 5.9* -- 5.7* 5.1* ALBUMIN 2.2* -- 2.5* 2.3* BILITOT 2.0* -- 1.3* 1.0 BILIRUBINU -- Negative -- -- ALKPHOS 111 -- 91 82 Glucose: Recent Labs 11/25/24 1821 11/25/24 2045 11/26/24 0039 11/26/24 0631 11/26/24 1200 11/26/24 1731 11/26/24 2336 11/27/24 0540 GLUCOSE 158* 178* 171* 165* 180* 180* 188* 168* Procal: No results for input(s): "PROCAL" in the last 72 hours. CBC: Recent Labs 11/25/24 0452 11/25/24 1653 11/26/24 0631 11/27/24 0540 WBC 8.5 -- 9.1 8.4 HGB 8.1* 8.4 8.1* 6.8* HCT 23.3* -- 23.9* 19.6* PLT 91* -- 129* 103* MCV 101.7* -- 101.3* 99.5* RDW 13.2 -- 13.3 13.5 ABGs: Recent Labs 11/24/24 1849 11/25/24 1653 PHART -- 7.407 [id number] -- 25.4* PO2ART -- 111.8* [id number] -- 15.6* [id number] None (Room Air) None (Room Air) Lactic Acid: Recent Labs 11/24/24 164 LACTATE 1.7 INR: No results for input(s): "INR" in the last 72 hours. Cardiac Injury Profile: Recent Labs 11/24/24 1849 CKTOTAL 59 Labs in Last 3 months: Lab Results Component Value Date TSH 0.57 11/26/2024 Microbiology- 11/24 blood cultures 1/2 + MSSE (likely contaminant) 11/24 wound culture - pending 11/24 urine culture - + e. Coli (10-50k CFU) Imaging- 11/24 XR left tib/fib FINDINGS: No fracture or dislocation of the left tibia or fibula is identified. Generalized soft tissue swelling of the left lower extremity is noted. There is no evidence of soft tissue gas or radiopaque foreign body. Scattered soft tissue calcification is noted. There is a plantar heel spur. 11/24 abdominal ultrasound Impression: 1. Cholelithiasis and sludge without sonographic evidence of acute cholecystitis. 2. Mild hepatomegaly with probable hepatic steatosis. 3. Nonobstructing right renal calculi. 11/25 TTE Technically difficult study. Left Ventricle: Left ventricle size is normal. Normal wall thickness. Normal left ventricular systolic function. The EF by visual approximation is 65%. Normal wall motion. Normal diastolic function. Right Ventricle: Not well visualized. Right ventricle size is normal. Normal systolic function. Aortic Valve: Trileaflet. No cusp thickening. No cusp calcification. No regurgitation. No stenosis. Mitral Valve: Valve structure is normal. No regurgitation. No stenosis noted. Tricuspid Valve: Valve structure is normal. Mild (1+) regurgitation. Normal RVSP. RVSP is 26 mmHg. Left Atrium: Not well visualized but left atrium size is probably normal. Interatrial Septum: No interatrial shunt visualized on color Doppler. Right Atrium: Not well visualized but right atrium size is probably normal. Aorta: Normal sized sinuses of Valsalva and ascending aorta. Pericardium: Evidence of prominent epicardial fat. No pericardial effusion. IVC/SVC: IVC diameter is normal and decreases less than 50% during inspiration; therefore the estimated right atrial pressure is intermediate (~8 mmHg). Assessment and Plan: Shock (resolved), septic vs hypovolemic - vaso off, norepi down to 3mcg/min, can likely be weaned off today - afebrile overnight, wbc count 8.4, check procal - wean stress-dose steroids to 50mg q8hr - infectious work-up showing 1/2 blood cultures + MSSE, likely contaminant, repeat blood cultures in am - urine culture + e.coli (10-50k CFU) - wound culture still pending - continue zosyn day #3, vanc day #3 (at least until wound culture results) Transient bradycardia (resolved) - interpreted as sinus maria esther with non-conducted PACs - cardiology evaluated, no intervention required - continue medical management of acute illness, stabilize electrolytes - TSH normal, patient not hypothermic nor hypoglycemic Lower extremity swelling Hx DVT on xarelto - R>L peripheral edema - TTE showing EF 65% without significant valvular abnormalities - venous duplex negative for DVT - remain off xarelto unless another indication arises LLE venous wound, present on arrival Unstageable pressure injury to coccyx, present on arrival Excoriation, fungal dermatitis in folds - per pt, LLE wound has been chronic for some time but has acutely gotten worse - surgery consulted for potential debridement, deferred to wound care - appreciate wound care involvement - wound cultured, pending results - strong distal pulses in both lower extremities Non-oliguric WILIAN (resolved), NAGMA - Scr returned to baseline with fluid resuscitation, likely pre-renal in setting of dehydration/hypotension - delgado placed 2/2 many incontinent episodes despite external cath, concern for worsening skin breakdown/wounds - UOP satisfactory - CK negative - bicarb supplemented via drip, now normalized @ 22, dc bicarb drip Hypokalemia - repleting IV + scheduled 40meq KCL q8hr - starting to improve, now consistently >3 - will likely continue to improve with more consistent PO intake and stopping bicarb drip - q8 bmp - remain on tele Elevated bilirubin, Hx HOGAN - tbili 2.0->1.3-> normal, transaminases normal, alk phos normal - abdominal ultrasound showing mild hepatomegaly with probable hepatic steatosis, cholelithiasis and sludge without evidence of acute cholecystitis, non-obstructing right renal calculi Macrocytic anemia Thrombocytopenia - hgb 8.1-> 6.8, transfusing 1 un PRBC - platelets 91 ->129 ->103 - sent anemia work-up: Following studies were normal: iron lvls, folate, vitamin B-12, TSH Abnormal: retic count slightly high at 2.3%, ferritin high (647) suggestive of inflammatory cause - peripheral smear, LDH, haptoglobin pending - monitor for s/s active bleeding - bleeding precautions, dvt ppx on hold Fluids/Nutrition/Bowel Function - promote PO intake - tolerating regular diet but low appetite, ensure supplements - having documented bowel movements Debility - PT/OT aleenaals - From home with Justin Code Status: FULL CODE I discussed the above plan of care with patient at bedside, all questions were answered at this time. GI Prophylaxis: Pantoprazole IV DVT Prophylaxis: contraindicated at this time Disposition: Remain in ICU Status Discussed plan of care with Dr. Carpenter Critical Care Time: 35 minutes Total critical care time caring for this patient with life threatening, unstable organ failure, including direct patient contact, management of life support systems, review of data including imaging and labs, discussions with other team members and physicians, excluding procedures. Cosigned by Jeb Carpenter MD at 11/27/2024 4:30 PM EDT [facility] Respiratory Care Department Progress Note Comment or reasoning for refusal: Patient was seen in attempts to fulfill CPAP/BiPAP/AutoPAP order. Patient refused PAP therapy/study at this time. Patient was educated on medical need and reasoning for physician order to ensure patient was making an informed medical decision. All of the patient's questions were answered at this time and patient was informed that if the patient changes their mind regarding wearing PAP to hit their "call light" or inform their nurse to contact Respiratory. A second, consecutive night of refusing PAP therapy/study results in order completion in the EMR. If future CPAP/BiPAP/AutoPAP therapy or study is indicated please place another order in the EMR and the assigned Respiratory Therapist will reattempt to fulfill orders. Reason for refusal: refused Thank you for involving Respiratory in the care of this patient, Pharmacy to Dose Vancomycin - Progress Note Lab Results Component Value Date CREATININE 0.67 11/26/2024 BUN 32 (H) 11/26/2024 WBC 9.1 11/26/2024 VANCOTROUGH 17.6 11/26/2024 Doses, serum creatinine, and vancomycin levels interfaced automatically to [facility] and data has been analyzed and interpreted. Infectious Diagnosis: SSTI Est CrCl: >90 mL/min (Cockcroft-Gault) Assessment: Current regimen vancomycin 1500 mg every 24 hours (12 mg/kg) Predicted AUC = 407 mg/L*hr (goal 400-600 mg/L*hr) PAUC = 57% (probability that AUC is >400 mg/L*hr) Pconc = 0% (probability that Ctrough is above 20 mcg/mL (toxicity)) Plan: Is the current dose therapeutic? [x] No - change current regimen to vancomycin 1500 mg every 18 hours (12 mg/kg) for predicted AUC 537 mg/L*hr, PAUC = 100% , and Pconc* = 1%. Obtain next level on 11/28. Trend serum creatinine. Trend AUC using Bayesian Modeling. Orders placed. DATE: 11/26/24 TIME: 7:58 AM Jeb Mckeon RPh, PharmD Clinical Pharmacist Available via Secure Chat Images from the original note were not included. ICU Progress Note Name: Maxwell Collier : 1960(64 y.o.) Date: 11/26/24 Team: MICU Attending: Dr. Navarro Subjective: Chief Complaint: weakness, lethargy Hospital Summary: 64yo female with pmhx HTN, DVTs on xarelto, BLE venous insufficiency, OA of bilateral knees, HOGAN presented to [facility] ED on 11/24/24 from home with complaint of lethargy, weakness. Per patient, she has very poor mobility due to OA of knees, causing her to retire last month. She also has been feeling weak, lethargic, and had poor appetite that has worsened this past week. She reportedly was lying in her recliner and was unable to get up, and was stuck there for at least 4 days. She was brought in via EMS incontinent of stool and urine. She was awake and oriented however and saturating well on room air. She was found to be hypotensive despite 3L sepsis bolus. Infectious work-up collected including blood cultures and culture of LLE wound. Patient states this wound has been chronic but has gotten much worse lately. She also endorsed increased swelling in her legs than normal. Surgery consulted for possible wound debridement, they recommend deferring to wound care services. Patient admitted to T3 MICU for management of acute hypovolemic vs septic shock requiring pressor support. 11/25 Pressor requirements increased despite fluid resuscitation requiring addition of vaso + norepi. Arterial line, central line placed. Ongoing potassium replacement for K <3. Intermittent bradycardia that appeared sinus with PACs. Interval Events: No acute events documented overnight. Patient wore bipap most of the night. She is much more alert this morning. She is Aox4, denies shortness of breath, chest pain, nausea, vomiting. Endorses full body soreness and not much of an appetite, but she is making an effort to eat and drink ensure supplements. Pressor requirements are improved, norepi from 18 -> 10mcgs overnight. Plan to add bicarb drip for ongoing nagma when potassium is replaced to safe level. Intermittent bradycardia overnight with HR dipping into 30s, cardiology consulted. Scheduled Meds:atropine, , , acetaminophen, 1,000 mg, Oral, q8h chlorhexidine, , Topical, Daily collagenase, , Topical, Daily enoxaparin, 40 mg, SubCUTAneous, q24h folic acid, 1 mg, Oral, Daily Hydrocortisone Sod Suc (PF), 100 mg, IntraVENous, q8h miconazole, , Topical, BID mupirocin, 1 Application, Nasal, BID pantoprazole, 40 mg, Oral, Daily Or pantoprazole (ProtoNix) 40 mg in sodium chloride (PF) 0.9 % 10 mL injection, 40 mg, IntraVENous, Daily Petrolatum, , Topical, Daily piperacillin-tazobactam, 4,500 mg, IntraVENous, q6h potassium chloride, 40 mEq, Oral, TID potassium chloride, , , potassium chloride, 20 mEq, IntraVENous, q1h sodium chloride 0.9%, 5-40 mL, IntraCATHeter, q8h stomahesive in petrolatum, , Topical, q8h vancomycin, 1,500 mg, IntraVENous, q24h Continuous Infusions:norepinephrine, 1-100 mcg/min, Last Rate: 13 mcg/min (11/25/24 8619) vasopressin in D5W, 0.01-0.03 Units/min, Last Rate: 0.03 Units/min (11/26/24 0117) Objective: Constitutional: General Appearance []Normal appearance [x]Ill-appearing []In acute distress []Well developed/well nourished [x]Obese []Thin []Cachectic Psych: Mental Status Alert: [x]Yes []No Oriented: []x0 []X1 []X2 []X3 [x]X4 Comments: At Baseline []Yes []No [x]Unknown baseline Mood/Affect []Normal [x]Calm [x]NAD []Flat []Depressed []Anxious []Agitated []Sedated Neurologic: GCS EYE: 4 - Opens spontaneously GCS MOTOR: 6 - Obeys commands for movement GCS VERBAL: 5 - Oriented to person, place, time Total GCS: 15 [x]Sensation grossly intact []Sensory deficit: [x]Equal motor function []Focal motor deficit: [x]Clear speech []Dysarthria Comments: Eyes: Inspection of Pupils/Irises Pupils equal, round and reactive: [x]Yes []No EOM Intact [x]Yes []No Sclera: []Icteric [x]Non-Icteric Conjunctiva: []Injected []Non-Injected Drainage present []Yes []No Comments: ENT/Mouth: Inspection of teeth/lips/gums Dentition: []Adequate [x]Poor [][place] Teeth []Dentures Mucosa: []Moist [x]Dry Oral secretions: [] Present [] Copious [] Moderate []Few [] Thick [] Thin Neck: External Appearance Overall Appearance: [x]Normal []Lesion/Mass/Crepitus Present Trachea midline: [x]Yes []No Respiratory: Respiratory effort []Tachypnea []Respiratory depression []Labored [x]Non-Labored Auscultation Right Lung: [x]Clear [] Diminished []Crackles []Wheezes []Rhonchi Left Lung: [x]Clear [] Diminished []Crackles []Wheezes []Rhonchi Supplemental Oxygen [x]None (Room Air) []Nasal cannula []High-flow NC(Salter) []NRB Mask []Heated High-Flow Nasal Cannula []NIV []Mechanical Ventilation Cardiovascular: Auscultation Rate: [x]Normal []Tachycardic []Bradycardic Rhythm: [x]Regular []Irregular Interpretation: SR Murmur: []Present []Absent Peripheral Edema: [x]Present []Absent 3+ RLE, 2+ LLE Gastrointestinal/Genitourinary Abdomen Palpation: [x]Soft []Firm []Tender [x]Non-Tender []Distended [x]Non-distended Hernia: []Present []Absent Bowel Sounds: [x]Present []Absent GI symptoms: []Nausea []Vomiting []Diarrhea []Constipation Pelvis Urine output: [x]Adequate []Oliguria []Anuria Delgado present? [x]Yes []No Urine appearance: [x]Yellow []Janice []Tea-colored [][place]-tinged []Filiberto hematuria [] Sediment []Clots Musculoskeletal: Extremities [x]Moves all extremities equally []Strength/Tone: Intact and Normal [x]Generalized weakness []Focal weakness: Injury/trauma: []Absent []Present Skin: Inspection []Normal []Pale []Rash []Lesion [x]Wound/s Excoriation to groin, beneath breasts, gluteal cleft, large wound to medial adam Palpation [x]Warm []Cool []Hot [x]Dry []Clammy Cap-Refill: [x] <3 sec [] >3 seconds (delayed) I/O: 11/25 0700 - 11/26 0659 In: 2100 [I.V.:2100] Out: 2200 [Urine:2200] +1.3L Invasive Lines / Tubes / Drains: Peripheral IV 11/24/24 Left Antecubital (Active) Number of days: 0 Peripheral IV 11/24/24 Right Antecubital (Active) Number of days: 0 Peripheral IV 11/24/24 Anterior;Distal;Left Forearm (Active) Number of days: 0 Central Line Indication: NA - patient does not have a central line Delgado Indications: NA - patient does not have a Delgado catheter Wounds: Wound/Incision 11/24/24 Pressure Injury Flank Left;Upper (Active) Date First Assessed/Time First Assessed: 11/24/242231 Present on Original Admission: Yes Primary Wound Type: Pressure Injury Location: Flank Wound Location Orientation: Left;Upper Wound/Incision 11/24/24 Pressure Injury Flank Right;Upper (Active) Date First Assessed/Time First Assessed: 11/24/242232 Primary Wound Type: Pressure Injury Location: Flank Wound Location Orientation: Right;Upper Wound/Incision 11/24/24 Pressure Injury Leg Anterior;Left;Proximal;Upper (Active) Date First Assessed/Time First Assessed: 11/24/242232 Primary Wound Type: Pressure Injury Location: Leg Wound Location Orientation: Anterior;Left;Proximal;Upper Wound/Incision 11/24/24 Pressure Injury Leg Anterior;Proximal;Right;Upper (Active) Date First Assessed/Time First Assessed: 11/24/242232 Primary Wound Type: Pressure Injury Location: Leg Wound Location Orientation: Anterior;Proximal;Right;Upper Wound/Incision 11/24/24 Venous Ulcer Calf Anterior;Left (Active) Date First Assessed/Time First Assessed: 11/24/242233 Primary Wound Type: Venous Ulcer Location: Calf Wound Location Orientation: Anterior;Left Wound/Incision 11/24/24 Pressure Injury Buttock (Active) Date First Assessed/Time First Assessed: 11/24/242240 Primary Wound Type: Pressure Injury Location: Buttock Wound/Incision 11/24/24 Pressure Injury Buttock Left (Active) Date First Assessed/Time First Assessed: 11/24/242246 Primary Wound Type: Pressure Injury Location: Buttock Wound Location Orientation: Left Oxygen Delivery: Ventilator: Restraints: NA - patient is not restrained. Last Vitals: BP MAP 120/58 (11/25/242335) 82 (11/25/242335) Arterial BP MAP 107/51 (11/26/24 0100) 72 mmHg (11/26/2499) Temp 36 C (96.8 F) (11/25/24 1200) Pulse 72 (11/26/24 0100) Resp (!) 10 (05/10/25 0100) SpO2 99 % (11/26/24 0100) Weight 126 kg (277 lb 12.5 oz) (11/24/24 2254) BMI Body mass index is 44.83 kg/m . [facility] within last 24 hours- BMP: Recent Labs 11/25/24 04511/25/24 1352 11/25/24204411/26/24 0039 11/26/24 0631 NA 132* < > 138 138 138 K 2.4* < > 3.2* 3.0* 2.4* CL 105 < > 112* 112* 109* CO2 15* < > 14* 15* 16* BUN 68* < > 45* 40* 32* CREATININE 1.02 < > 0.76 0.72 0.67 CALCIUM 7.5* < > 8.0* 8.2* 8.3* MG 2.0 -- -- -- 1.8 PHOS 3.2 -- -- -- 2.3 < > = values in this interval not displayed. LFTs: Recent Labs 11/24/24164011/24/24 22211/26/24 0631 AST 25 -- 21 ALT 10 -- 9 PROT 5.9* -- 5.7* ALBUMIN 2.2* -- 2.5* BILITOT 2.0* -- 1.3* BILIRUBINU -- Negative -- ALKPHOS 111 -- 91 Glucose: Recent Labs 11/24/24 16411/25/2445111/25/24 13511/25/24 18211/25/24204411/26/24 0039 11/26/24 0631 GLUCOSE 116* 116* 120* 158* 178* 171* 165* Procal: No results for input(s): "PROCAL" in the last 72 hours. CBC: Recent Labs 11/24/24164011/24/24 1849 11/25/2445111/25/24 16511/26/24 0631 WBC 8.9 -- 8.5 -- 9.1 HGB 9.1* < > 8.1* 8.4 8.1* HCT 26.7* -- 23.3* -- 23.9* PLT 104* -- 91* -- 129* MCV 100.0* -- 101.7* -- 101.3* RDW 12.9 -- 13.2 -- 13.3 < > = values in this interval not displayed. ABGs: Recent Labs 11/24/24 1849 11/25/24 1653 PHART -- 7.407 HJR6IJI -- 25.4* PO2ART -- 111.8* YSS6SFE -- 15.6* [id number] None (Room Air) None (Room Air) Lactic Acid: Recent Labs 11/24/24 1641 LACTATE 1.7 INR: No results for input(s): "INR" in the last 72 hours. Cardiac Injury Profile: Recent Labs 11/24/24 184 CKTOTAL 59 Labs in Last 3 months: No results found for: "TSH", "VITD25", "PSA", "INR", "GLUF" Microbiology- 11/24 blood cultures / + MSSE 11/24 wound culture - pending 11/24 urine culture - + e. Coli (10-50k CFU) Imaging- 11/24 XR left tib/fib FINDINGS: No fracture or dislocation of the left tibia or fibula is identified. Generalized soft tissue swelling of the left lower extremity is noted. There is no evidence of soft tissue gas or radiopaque foreign body. Scattered soft tissue calcification is noted. There is a plantar heel spur. 11/24 abdominal ultrasound Impression: 1. Cholelithiasis and sludge without sonographic evidence of acute cholecystitis. 2. Mild hepatomegaly with probable hepatic steatosis. 3. Nonobstructing right renal calculi. 11/25 TTE Technically difficult study. Left Ventricle: Left ventricle size is normal. Normal wall thickness. Normal left ventricular systolic function. The EF by visual approximation is 65%. Normal wall motion. Normal diastolic function. Right Ventricle: Not well visualized. Right ventricle size is normal. Normal systolic function. Aortic Valve: Trileaflet. No cusp thickening. No cusp calcification. No regurgitation. No stenosis. Mitral Valve: Valve structure is normal. No regurgitation. No stenosis noted. Tricuspid Valve: Valve structure is normal. Mild (1+) regurgitation. Normal RVSP. RVSP is 26 mmHg. Left Atrium: Not well visualized but left atrium size is probably normal. Interatrial Septum: No interatrial shunt visualized on color Doppler. Right Atrium: Not well visualized but right atrium size is probably normal. Aorta: Normal sized sinuses of Valsalva and ascending aorta. Pericardium: Evidence of prominent epicardial fat. No pericardial effusion. IVC/SVC: IVC diameter is normal and decreases less than 50% during inspiration; therefore the estimated right atrial pressure is intermediate (~8 mmHg). Assessment and Plan: Shock, septic vs hypovolemic - on norepi at 10mcg/min and decreasing, vaso 0.03 - added stress-dose steroids - infectious work-up pending: urine, blood, wound cultures - continue vanc/zosyn coverage Lower extremity swelling Hx DVT on xarelto - R>L peripheral edema - TTE showing EF 65% without significant valvular abnormalities - venous duplex negative for DVT - may be able to remain off xarelto unless another indication is discovered Transient bradycardia - interpreted as sinus maria esther with non-conducted PACs - cardiology evaluated, no intervention required - continue medical management of acute illness, stabilize electrolytes - TSH normal, patient not hypothermic nor hypoglycemic LLE venous wound, present on arrival Unstageable pressure injury to coccyx, present on arrival Excoriation, fungal dermatitis in folds - per pt, LLE wound has been chronic for some time but has acutely gotten worse - surgery consulted for potential debridement, deferred to wound care - appreciate wound care involvement - wound cultured, pending results - strong distal pulses in both lower extremities Non-oliguric WILIAN (resolved), NAGMA - Scr returned to baseline with fluid resuscitation, likely pre-renal in setting of dehydration/hypotension - delgado placed 2/2 many incontinent episodes despite external cath, concern for worsening skin breakdown/wounds - UOP satisfactory - CK negative, bicarb remains low at 16, once potassium replaced to safe level, supplement bicarb via drip Elevated bilirubin, Hx HOGAN - tbili 2.0->1.3 transaminases normal, alk phos normal - abdominal ultrasound showing mild hepatomegaly with probable hepatic steatosis, cholelithiasis and sludge without evidence of acute cholecystitis, non-obstructing right renal calculi Macrocytic anemia Thrombocytopenia - hgb 8.1, platelets 91 ->129 - sent anemia work-up, peripheral smear, retic count - monitor for s/s active bleeding - transfuse for hgb <7 Fluids/Nutrition/Bowel Function - promote PO intake - tolerating regular diet but low appetite, ensure supplements - 2 documented bowel movements overnight Debility - PT/OT evals - From home with Justin Code Status: FULL CODE I discussed the above plan of care with patient at bedside, all questions were answered at this time. GI Prophylaxis: Pantoprazole IV DVT Prophylaxis: Lovenox 40 q 24hr - creatinine clearance >30 Disposition: Remain in ICU Status Discussed plan of care with Dr. Navarro Critical Care Time: 35 minutes Total critical care time caring for this patient with life threatening, unstable organ failure, including direct patient contact, management of life support systems, review of data including imaging and labs, discussions with other team members and physicians, excluding procedures. Cosigned by Francisco Navarro MD at 11/27/2024 11:12 PM EDT Images from the original note were not included. PHYSICAL THERAPY [facility] Initial Evaluation Name/MRN: Maxwell Collier ([id number]) Evaluation Date: 11/25/2024 Date of : 1960 Admission Date: 11/24/2024 1:30 PM Age: 64 y.o. Room/Bed: T3-306/T3-306 A Discharge Recommendation: [facility] Facility Other: tbd Assessment IMPRESSION: Pt presents with impaired mobility. Noted generalized weakness and decrease activity tolerance. Impaired balance during sitting at EOB. Pt currently requires mod to max assist with all functional mobility. Currently on Levophed gtt. Pt is a high risk of falling and is unsafe to return home. Recommend SNF at discharge. Admitting Diagnosis: Wound LLE Prognosis: fair Performance Deficits /Impairments: Increased Pain, Decreased Functional Mobility, Decreased ADL status, Decreased Strength, Decreased Endurance, and Decreased Balance Decision Making: Medium Complexity Subjective Pt in bed. Agree with PT treatment. RN cleared for PT. Pain: Martinez-Callahan Pain Ratin = Hurts little more Pain Location: sacral area Past Medical History: Past Medical History: Diagnosis Date Blood clot in vein bilateral legs Hypertension Venous ulcer (CMS/HCC) (HCC) left leg Past Surgical History: Past Surgical History: Procedure Laterality Date EXTREMITY SURGERY lle HYSTERECTOMY SKIN GRAFT Left 2006 Admission Diagnosis: Patient Active Problem List Diagnosis Date Noted Wound of left lower extremity, initial encounter 11/24/2024 Unilateral primary osteoarthritis, right knee 07/02/2022 Peripheral venous insufficiency 06/25/2022 Essential (primary) hypertension 12/02/2017 Personal history of nicotine dependence 12/02/2017 Personal history of diseases of the blood and blood-forming organs and certain disorders involving the immune mechanism 12/02/2017 Angio-edema 12/02/2017 Medical Precautions: No active isolations Proper PPE donned/doffed in accordance with facility standards. Fall Risk: Potts Fall Risk Score: 80 (Medium Risk) Potts Fall Risk Score: 80 (High Risk) Precautions/Restrictions: Lines/Drains/Airways: tele, right radial art line, piv Fall Precautions Family/Caregiver Present: none Overall Cognitive Status: Exceptions - Arousal/alertness: delayed responses to stimuli - Initiation: requires cues for some - Sequencing: requires cues for some Overall Orientation Status: Oriented to Place, Oriented to Situation, and Oriented to Person Vision: Not Assessed Hearing: normal Social/Functional History Patient admitted from home. Lives With: Spouse Type of Home: single family home Home Layout: Split Level Home Home Access: Stairs to Enter with Rails (# of stairs: 6) Bathroom Shower/Tub: Toilet: N/A Home Equipment: front wheeled walker Homemaking Responsibilities: Needs Assist Receives Help From: Spouse Active Unemployment Benefits Claims Taker: No Prior Level of Function Prior Level of ADL Function: Independent Prior Level of Mobility: Independent; Device: Front wheeled walker Prior Level of Transfers: Independent Objective Lower Extremity Assessment AROM: Impaired: hip and knee flex 20-30 in supine PROM: Impaired: both hips and knee at 90 during sitting at EOB Strength: Lower Extremity Strength Right Left Hip Flexion 3- 3- Hip Abduction Hip Extension Hip External Rotation (ER) Hip Internal Rotation (IR) Knee Extension 3+ 3+ Knee Flexion Ankle Dorsiflexion (DF) Ankle Plantarflexion (PF) 3+ 3+ Inversion Eversion Sensation: WFL Balance: Balance During Session: Posture: fair Sitting - Static: Min Assist Sitting - Dynamic: Mod Assist Standing - Static: na Standing - Dynamic: na Bed Mobility: Supine to sit: Max Assist Sit to supine: Max Assist Scooting: Dependent Transfers Na, recommend mechanical lift Ambulation Did not assess this session. Long sitting with pt pulling self to sit with bed rail and with mod to min assist. 20-30 sec hold, 5 reps. Sitting at EOB x10 minutes with min to mod assist. Weight shifting to facilitate trunk control. Heel slides x10 Shoulder flex x10 Outcome Measures AM-PAC How much HELP from another person do you currently need Turning from your back to your side while in a flat bed without using bedrails?: A Lot Moving from lying on your back to sitting on the side of a flat bed without using bedrails?: A Lot Moving to and from a bed to a chair (including a wheelchair)?: Total Standing up from a chair using your arms (wheelchair or bedside chair)?: Total Walking in a hospital room?: Total Stair climbing assessed?: No AM-PAC Inpatient Mobility Raw Score (No Stairs) : 7 JH-HLM -HLM Score: Sat at edge of bed Plan Pt would benefit from skilled acute PT services to address Strengthening, Gait Training, Balance Training, and Functional Mobility Training. Frequency: 3x/week for 4 weeks Barriers: Impaired balance, Lower extremity weakness, Upper extremity weakness, Decreased endurance, and Limited family support Safety/Education Safety Safety Devices in place: call light within reach, left in bed, and no alarms engaged upon entry Restraints: No Education Education Given To: patient Education Provided: PT Role, PT Goals, and Plan of Care Education Method: Verbal Barriers to Learning: Education Outcome: Verbalized Understanding and Continued Education Needed Goals Patient Stated Goal: To go home. Encounter Problems Encounter Problems (Active) Balance Patient will maintain static standing balance for 3 minutes with SBA in order to demonstrate decreased risk of falling. Start: 11/25/24 Expected End: 12/23/24 Mobility Patient will ambulate 150 feet with SBA and rolling walker in order to improve safety and independence with mobility. Start: 11/25/24 Expected End: 12/23/24 Transfers Patient will perform bed mobility with modified independence in order to improve independence and prepare for out of bed mobility. Start: 11/25/24 Expected End: 12/23/24 Patient will complete functional transfer with rolling walker with modified independence in order to prepare for ambulation. Start: 11/25/24 Expected End: 12/23/24 Therapy Time Individual Co-Treatment Co-Evaluation Time In 1420 Time Out 1447 Minutes 27 Timed Code Treatment Minutes: 8 Minutes (FA) Scotty Reyna PT Patient's Physical Therapy Plan of Care supervision is transferred to a [facility] Physical Therapist. Goals and/or treatment plan was established in collaboration with patient/family/other representatives. Pharmacy to Dose Vancomycin - Progress Note Lab Results Component Value Date CREATININE 1.02 11/25/2024 BUN 68 (H) 11/25/2024 WBC 8.5 11/25/2024 Doses, serum creatinine, and vancomycin levels interfaced automatically to [facility] and data has been analyzed and interpreted. Infectious Diagnosis: skin & soft tissue infection Est CrCl: 77 mL/min (Cockcroft-Gault); using adjusted BW of 86 kg (BMI-44.8) Assessment: Current regimen vancomycin 1000 mg every 24 hours (8 mg/kg) Predicted AUC = 344 mg/L*hr (goal 400-600 mg/L*hr) PAUC = 24% (probability that AUC is >400 mg/L*hr) Pconc = 0% (probability that Ctrough is above 20 mcg/mL (toxicity)) Plan: Is the current dose therapeutic? [x] No - change current regimen to vancomycin 1500 mg every 24 hours (17 mg/kg) for predicted AUC 508 mg/L*hr, PAUC = 87% , and Pconc* = 8%. Obtain next level on 11/26. Trend serum creatinine. Trend AUC using Bayesian Modeling. Orders placed. DATE: 11/25/24 TIME: 7:52 AM Michelle Koch RPh, PharmD Available via Secure Chat Images from the original note were not included. ICU Progress Note Name: Maxwell Collier : 1960(64 y.o.) Date: 11/25/24 Team: MICU Attending: Dr. Tiwari Subjective: Chief Complaint: weakness, lethargy Hospital Summary: 64yo female with pmhx HTN, DVTs on xarelto, BLE venous insufficiency, OA of bilateral knees, HOGAN presented to [facility] ED on 11/24/24 from home with complaint of lethargy, weakness. Per patient, she has very poor mobility due to OA of knees, causing her to retire last month. She also has been feeling weak, lethargic, and had poor appetite that has worsened this past week. She reportedly was lying in her recliner and was unable to get up, and was stuck there for at least 4 days. She was brought in via EMS incontinent of stool and urine. She was awake and oriented however and saturating well on room air. She was found to be hypotensive despite 3L sepsis bolus. Infectious work-up collected including blood cultures and culture of LLE wound. Patient states this wound has been chronic but has gotten much worse lately. She also endorsed increased swelling in her legs than normal. Surgery consulted for possible wound debridement, they recommend deferring to wound care services. Patient admitted to T3 MICU for management of acute hypovolemic vs septic shock requiring pressor support. Interval Events: Patient remains on 10-12mcg/min norepi with MAPS ~65. Additional liter of fluid given overnight without change in pressor requirements. Patient is awake on exam, oriented x4. Complaining of generalized soreness all over without a specific focal point. She denies shortness of breath, chest pain, nausea, vomiting, abdominal pain, fever/chills. Respirations even and unlabored, on room air. Good urine output via external cath. Scheduled Meds:acetaminophen, 1,000 mg, Oral, q8h folic acid, 1 mg, Oral, Daily miconazole, , Topical, BID mupirocin, 1 Application, Nasal, BID piperacillin-tazobactam, 4,500 mg, IntraVENous, q6h potassium chloride, 40 mEq, Oral, TID potassium chloride, 40 mEq, IntraVENous, Once vancomycin, 1,000 mg, IntraVENous, q24h Continuous Infusions:norepinephrine in sodium chloride 0.9 %, 2-50 mcg/min, Last Rate: 10 mcg/min (11/25/24 0077) Objective: Constitutional: General Appearance []Normal appearance [x]Ill-appearing []In acute distress []Well developed/well nourished [x]Obese []Thin []Cachectic Psych: Mental Status Alert: [x]Yes []No Oriented: []x0 []X1 []X2 []X3 [x]X4 Comments: At Baseline []Yes []No [x]Unknown baseline Mood/Affect []Normal [x]Calm [x]NAD []Flat []Depressed []Anxious []Agitated []Sedated Neurologic: GCS EYE: 4 - Opens spontaneously GCS MOTOR: 6 - Obeys commands for movement GCS VERBAL: 5 - Oriented to person, place, time Total GCS: 15 [x]Sensation grossly intact []Sensory deficit: [x]Equal motor function []Focal motor deficit: [x]Clear speech []Dysarthria Comments: Eyes: Inspection of Pupils/Irises Pupils equal, round and reactive: [x]Yes []No EOM Intact [x]Yes []No Sclera: []Icteric [x]Non-Icteric Conjunctiva: []Injected []Non-Injected Drainage present []Yes []No Comments: ENT/Mouth: Inspection of teeth/lips/gums Dentition: []Adequate [x]Poor [][place] Teeth []Dentures Mucosa: []Moist [x]Dry Oral secretions: [] Present [] Copious [] Moderate []Few [] Thick [] Thin Neck: External Appearance Overall Appearance: [x]Normal []Lesion/Mass/Crepitus Present Trachea midline: [x]Yes []No Respiratory: Respiratory effort []Tachypnea []Respiratory depression []Labored [x]Non-Labored Auscultation Right Lung: [x]Clear [] Diminished []Crackles []Wheezes []Rhonchi Left Lung: []Clear [x] Diminished []Crackles []Wheezes []Rhonchi Supplemental Oxygen [x]None (Room Air) []Nasal cannula []High-flow NC(Salter) []NRB Mask []Heated High-Flow Nasal Cannula []NIV []Mechanical Ventilation Cardiovascular: Auscultation Rate: [x]Normal []Tachycardic []Bradycardic Rhythm: [x]Regular []Irregular Interpretation: SR Murmur: []Present []Absent Peripheral Edema: [x]Present []Absent 3+ RLE, 2+ LLE Gastrointestinal/Genitourinary Abdomen Palpation: [x]Soft []Firm []Tender [x]Non-Tender []Distended [x]Non-distended Hernia: []Present []Absent Bowel Sounds: [x]Present []Absent GI symptoms: []Nausea []Vomiting []Diarrhea []Constipation Pelvis Urine output: [x]Adequate []Oliguria []Anuria Delgado present? [x]Yes []No Urine appearance: [x]Yellow [x]Janice []Tea-colored [][place]-tinged []Filiberto hematuria [] Sediment []Clots Musculoskeletal: Extremities [x]Moves all extremities equally []Strength/Tone: Intact and Normal [x]Generalized weakness []Focal weakness: Injury/trauma: []Absent []Present Skin: Inspection []Normal []Pale []Rash []Lesion [x]Wound/s Excoriation to groin, beneath breasts, gluteal cleft, large wound to medial adam Palpation [x]Warm []Cool []Hot [x]Dry []Clammy Cap-Refill: [x] <3 sec [] >3 seconds (delayed) I/O: 11/24 0700 - 11/25 0659 In: 2131.3 [I.V.:2131.3] Out: 800 [Urine:800] +1.3L Invasive Lines / Tubes / Drains: Peripheral IV 11/24/24 Left Antecubital (Active) Number of days: 0 Peripheral IV 11/24/24 Right Antecubital (Active) Number of days: 0 Peripheral IV 11/24/24 Anterior;Distal;Left Forearm (Active) Number of days: 0 Central Line Indication: NA - patient does not have a central line Delgado Indications: NA - patient does not have a Delgado catheter Wounds: Wound/Incision 11/24/24 Pressure Injury Flank Left;Upper (Active) Date First Assessed/Time First Assessed: 11/24/242231 Present on Original Admission: Yes Primary Wound Type: Pressure Injury Location: Flank Wound Location Orientation: Left;Upper Wound/Incision 11/24/24 Pressure Injury Flank Right;Upper (Active) Date First Assessed/Time First Assessed: 11/24/242232 Primary Wound Type: Pressure Injury Location: Flank Wound Location Orientation: Right;Upper Wound/Incision 11/24/24 Pressure Injury Leg Anterior;Left;Proximal;Upper (Active) Date First Assessed/Time First Assessed: 11/24/242232 Primary Wound Type: Pressure Injury Location: Leg Wound Location Orientation: Anterior;Left;Proximal;Upper Wound/Incision 11/24/24 Pressure Injury Leg Anterior;Proximal;Right;Upper (Active) Date First Assessed/Time First Assessed: 11/24/242232 Primary Wound Type: Pressure Injury Location: Leg Wound Location Orientation: Anterior;Proximal;Right;Upper Wound/Incision 11/24/24 Venous Ulcer Calf Anterior;Left (Active) Date First Assessed/Time First Assessed: 11/24/242233 Primary Wound Type: Venous Ulcer Location: Calf Wound Location Orientation: Anterior;Left Wound/Incision 11/24/24 Pressure Injury Buttock (Active) Date First Assessed/Time First Assessed: 11/24/242240 Primary Wound Type: Pressure Injury Location: Buttock Wound/Incision 11/24/24 Pressure Injury Buttock Left (Active) Date First Assessed/Time First Assessed: 11/24/242246 Primary Wound Type: Pressure Injury Location: Buttock Wound Location Orientation: Left Oxygen Delivery: Ventilator: Restraints: NA - patient is not restrained. Last Vitals: BP MAP (!) 89/49 (11/25/24 0645) 61 (11/25/2445) Arterial BP MAP Temp (!) 35.8 C (96.5 F) (11/25/24 0400) Pulse 67 (11/25/2445) Resp (!) 11 (11/25/24 0645) SpO2 100 % (11/25/2445) Weight 126 kg (277 lb 12.5 oz) (11/24/242253) BMI Body mass index is 44.83 kg/m . [facility] within last 24 hours- BMP: Recent Labs 11/24/24 1641 11/25/24 0452 NA 126* 132* K 3.5 2.4* CL 95* 105 CO2 13* 15* BUN 92* 68* CREATININE 1.59* 1.02 CALCIUM 8.2* 7.5* LFTs: Recent Labs 11/24/24 16411/24/24 2220 AST 25 -- ALT 10 -- PROT 5.9* -- ALBUMIN 2.2* -- BILITOT 2.0* -- BILIRUBINU -- Negative ALKPHOS 111 -- Glucose: Recent Labs 11/24/24 1641 11/25/24 0452 GLUCOSE 116* 116* Procal: No results for input(s): "PROCAL" in the last 72 hours. CBC: Recent Labs 11/24/24 16411/24/24 1849 11/25/24 0452 WBC 8.9 -- 8.5 HGB 9.1* 8.8 8.1* HCT 26.7* -- 23.3* PLT 104* -- 91* MCV 100.0* -- 101.7* RDW 12.9 -- 13.2 ABGs: Recent Labs 11/24/24 1849 [id number] None (Room Air) Lactic Acid: Recent Labs 11/24/24 164 LACTATE 1.7 INR: No results for input(s): "INR" in the last 72 hours. Cardiac Injury Profile: Recent Labs 11/24/24 1849 CKTOTAL 59 Labs in Last 3 months: No results found for: "TSH", "VITD25", "PSA", "INR", "GLUF" Microbiology- 11/24 blood cultures 1/2 + MSSE 11/24 wound culture - pending 11/24 urine culture - pending Imaging- 11/24 XR left tib/fib FINDINGS: No fracture or dislocation of the left tibia or fibula is identified. Generalized soft tissue swelling of the left lower extremity is noted. There is no evidence of soft tissue gas or radiopaque foreign body. Scattered soft tissue calcification is noted. There is a plantar heel spur. 11/24 abdominal ultrasound Impression: 1. Cholelithiasis and sludge without sonographic evidence of acute cholecystitis. 2. Mild hepatomegaly with probable hepatic steatosis. 3. Nonobstructing right renal calculi. 11/25 TTE Technically difficult study. Left Ventricle: Left ventricle size is normal. Normal wall thickness. Normal left ventricular systolic function. The EF by visual approximation is 65%. Normal wall motion. Normal diastolic function. Right Ventricle: Not well visualized. Right ventricle size is normal. Normal systolic function. Aortic Valve: Trileaflet. No cusp thickening. No cusp calcification. No regurgitation. No stenosis. Mitral Valve: Valve structure is normal. No regurgitation. No stenosis noted. Tricuspid Valve: Valve structure is normal. Mild (1+) regurgitation. Normal RVSP. RVSP is 26 mmHg. Left Atrium: Not well visualized but left atrium size is probably normal. Interatrial Septum: No interatrial shunt visualized on color Doppler. Right Atrium: Not well visualized but right atrium size is probably normal. Aorta: Normal sized sinuses of Valsalva and ascending aorta. Pericardium: Evidence of prominent epicardial fat. No pericardial effusion. IVC/SVC: IVC diameter is normal and decreases less than 50% during inspiration; therefore the estimated right atrial pressure is intermediate (~8 mmHg). Assessment and Plan: Shock, hypovolemic vs septic - hypovolemia in setting of poor PO intake - gave additional IV fluid bolus without change in pressor requirements - IVC on surface echo normal diameter, decreases less than 50% with inspiration - on norepi 12mcg/min - add stress-dose steroids - add vaso if pressor requirements reach >15mcg/min - infectious work-up pending: urine, blood, wound cultures - continue vanc/zosyn coverage Lower extremity swelling Hx DVT on xarelto - R>L peripheral edema - check TTE - showing EF 65% without significant valvular abnormalities - venous duplex negative for DVT - may be able to remain off xarelto unless another indication is discovered LLE venous wound, present on arrival Unstageable pressure injury to coccyx, present on arrival Excoriation, fungal dermatitis in folds - per pt, LLE wound has been chronic for some time but has acutely gotten worse - surgery consulted for potential debridement, deferred to wound care - appreciate wound care involvement - wound cultured, pending results - strong distal pulses in both lower extremities Non-oliguric WILIAN (resolved), NAGMA - Scr returned to baseline with fluid resuscitation, likely pre-renal in setting of dehydration/hypotension - UOP approx 60/hr via external cath, plus multiple documented additional occurrences - CK negative, bicarb low but improving 13->16 Elevated bilirubin, Hx HOGAN - tbili 2.0, transaminases normal, alk phos normal - abdominal ultrasound showing mild hepatomegaly with probable hepatic steatosis, cholelithiasis and sludge without evidence of acute cholecystitis, non-obstructing right renal calculi Macrocytic anemia Thrombocytopenia - hgb 8.1, platelets 91 - send anemia work-up, peripheral smear, retic count - monitor for s/s active bleeding - transfuse for hgb <7 Fluids/Nutrition/Bowel Function - promote PO intake - tolerating regular diet - 2 documented bowel movements overnight Debility - PT/OT evals - From home with Justin Code Status: FULL CODE I discussed the above plan of care with patient and her Justin. GI Prophylaxis: Pantoprazole IV DVT Prophylaxis: Lovenox 40 q 24hr - creatinine clearance >30 Disposition: Remain in ICU Status Discussed plan of care with Dr. Tiwari Critical Care Time: 50 minutes Total critical care time caring for this patient with life threatening, unstable organ failure, including direct patient contact, management of life support systems, review of data including imaging and labs, discussions with other team members and physicians, excluding procedures. Cosigned by Maria Isabel Mckeon DO at 12/03/2024 5:41 AM EDT Nutrition Assessment Type and Reason for Visit: Initial (ICU screen) Nutrition Recommendations/Plan: Pt is currently ordered a Regular Diet. Monitor need for addition of low sodium restrictions given noted edema (generalized +2 moderate pitting edema). 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 She was reluctantly agreeable for RD to order a lobato australian yogurt cup this AM for breakfast (after listing off multiple breakfast menu choices). Pt states that she has tried ONS in the past but does not routinely use at home, she is agreeable to trying Ensure Max once daily during admit- per MNT protocol will initiate ONS trial. 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, today endorses ongoing poor appetite, reluctantly agreeable to have RD order a australian yogurt cup for breakfast this AM, agreeable to ONS for increased protein to promote wound healing) Weight Loss: No significant weight loss (pt reports her weight has been stable 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- pt CBW 277# bedscale on 11/24, was 280# stated on 11/24 presentation, per EPIC review --> limited recent history however noted 07/02/22: 270#, 10/16/22: 286#, 10/12/24: 283.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) Body Fat Loss: No significant body fat loss Muscle Mass Loss: No significant muscle mass loss Fluid Accumulation: Moderate to Severe (generalized +2 moderate pitting edema per flowsheets) [employer] Strength: Not Performed Nutrition Assessment: pt with PMH significant for HTN, knee OA and DVT (on Xarelto) who presented to [facility] ED on 11/24/24 with complaint of one week of generalized weakness and fatigue, pt reported on 11/20 she was unable to get up from her chair due to weakness, pt was unable to get up even with assistance from her , pt then remained in the chair until calling EMS on 11/24, pt also reported decreased appetite during this time- stating she was only eating bites of toast or sips of water, pt additionally reporting some dizziness as well, pt with extensive LLE wounds, she reported these have been present for a few years and have 'opened up' about 4-5x and have never fully healed, pt reported worsening of lower extremity edema as well- reported compliance with home medications except for morning of presentation, on ED arrival pt was covered in feces, initial vital signs showed temp 97.4, HR 59, RR 18, BP 116/90, saturating 100% on room air, labs were notable for Na 125, Cl 95, CO2 13, AG 18, Cr 1.59, Hb 9.1, CK, troponin, lactic acid WNL, ESR 45, CRP 136, XR of left tib/fib showed generalized soft tissue swelling without evidence of gas, pt was given a total of 4L fluid in ED but required addition of levophed to maintain MAP >65, pt also received single dose of vanc and zosyn, pt was transferred to ICU for further workup and management, Surgery consulted for evaluation of wounds and recommended wound care consult for management of multiple wounds as did not feel surgical debridement indicated at this time and following peripherally. 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 Estimated Daily Nutrient Needs: Energy Requirements Based On: Kcal/kg Weight Used for Energy Requirements: [place] Weight for Energy Calculation (kg): 59.1 kg Total Energy Requirements (kcals/day): 1300-1478kcals/day Weight Used for Protein Requirements: [place] Weight in Kg Used for Protein Requirements: 59.1 kg Estimated Total Protein (g/day): 77-89gm pro/day Estimated Daily Total Fluid (ml/day): per MD recommendations Nutrition Related Findings: Lives with: Spouse/significant other, Orientation Level: Oriented X4, Cognition: Follows commands, Appropriate for developmental age, Appropriate attention/concentration, Appropriate safety awareness, Appropriate judgement, Best Verbal Response: Oriented, Patient Behaviors/Mood: Calm, Cooperative Teeth: Intact Swallow: Able to swallow solids and liquids without difficulty Feeding: Independent Victor Hugo Scale Score: 13. Wound Type: Multiple, Wound Consult Pending (right and left flank, left leg, right leg, buttocks- pressure injuries of unspecified stages, also with left calf venous ulcer) Net IO Since Admission: 1,331.31 mL [11/25/24 0955] Gastrointestinal (WDL): Exceptions to WDL Bowel Sounds (All Quadrants): Active Abdomen Inspection: Soft, Distended Last BM Date: 11/25/24, Stool Appearance: Loose, Stool Color: Brown Edema: Generalized Edema: Moderate pitting, indentation subsides rapidly Oxygen Therapy: None (Room air) Labs and meds reviewed: Scheduled: acetaminophen, 1,000 mg, Oral, q8h folic acid, 1 mg, Oral, Daily lactated ringers, 1,000 mL, IntraVENous, Once miconazole, , Topical, BID mupirocin, 1 Application, Nasal, BID piperacillin-tazobactam, 4,500 mg, IntraVENous, q6h potassium chloride, 40 mEq, Oral, TID potassium chloride, 40 mEq, IntraVENous, Once vancomycin, 1,500 mg, IntraVENous, q24h Continuous: norepinephrine in sodium chloride 0.9 %, 2-50 mcg/min, Last Rate: 10 mcg/min (11/25/24 0654) Current Nutrition Therapies: Adult diet Regular Current Oral Intake Average Meal Intake: (pt has not yet had a tray) Average Supplements Intake: None Ordered Anthropometric Measures: Height: 167.6 cm (5' 6") Current Body Weight: 126 kg (277 lb) (bedscale 11/24) Weight Source: Bed Scale Admission Body Weight: 127 kg (280 lb) (stated 11/24) Usual Body Weight: (per EPIC review --> limited recent history however noted 07/02/22: 270#, 10/16/22: 286#, 10/12/24: 283.4# which indicates mcfp stable weight) Flint Body Weight (lbs) (Calculated): 130 lbs [place] Body Weight (Kg) (Calculated): 59 kg % Flint Body Weight (Calculated): 213.1 % BMI (kg/m2) (Calculated): 44.7 Weight Adjustment For: No Adjustment BMI Categories: Obese Class 3 (BMI 40.0 or greater) Wt Readings from Last 10 Encounters: 11/24/24 126 kg (277 lb 12.5 oz) 11/03/22 83.6 kg (184 lb 4.9 oz) 10/16/22 130 kg (286 lb) 07/02/22 122 kg (270 lb) 01/30/21 (!) 142 kg (314 lb) Nutrition Diagnosis: Increased nutrient needs related to increase demand for energy/nutrients as evidenced by wounds Nutrition Interventions: Nutrition Education/Counseling: Education declined Coordination of Nutrition Care: Continue to monitor while inpatient Plan of Care discussed with: pt Goals: Goals: PO intake 50% or greater, by next RD assessment Nutrition Monitoring and Evaluation: Behavioral-Environmental Outcomes: None Identified Food/Nutrient Intake Outcomes: Diet Advancement/Tolerance, Food and Nutrient Intake, Supplement Intake Physical Signs/Symptoms Outcomes: Biochemical Data, GI Status, Fluid Status or Edema, Hemodynamic Status, Meal Time Behavior, Weight, Skin, Nutrition Focused Physical Findings Discharge Planning: Too soon to determine Jennifer Senior RD Contact: available via [employer] or *[phone] documented in this encounter [facility] 12-01-2024 Consult note Formatting of th is note is different from the original. Images from the original note were not included. Hospital Medicine Consult Patient - Maxwell Collier, Age - 64 y.o. - 1960 Room Number - [id number] Consulting - Justo Tejada DO Primary Care Physician [phone] Date of Admission - 11/24/2024 1:30 PM Hospital Day - 7 Reason for Consult: Medical Management HISTORY OF PRESENT ILLNESS: This is a 64 y/o female with a PMHX of HTN, peripheral venous insuffiencey, DVT on xarelto, obesity, HOGAN, and osteoarthritis. She presented to [facility] ED on 11/24/24 with complaints of increased pain and weakness which led to her being unable to ambulate at home. The patient recently retired due to poor mobility related to her OA in bilateral knees. Upon arrival to the ED the patient was alert and oriented x3, hypotensive, bradycardic, hypothermic, with O2 saturations >95% on RA. She was given IVF bolus and vasopressors were started. Blood, urine, and wound cultures (LLE) were obtained. The ICU team was consulted and the patient was admitted to the MICU for continued management. Surgery was consulted for possible wound debridement. Pt required levo and vaso. With ongoing hyokalemia which was replaced. Noted to have intermittent bradycardia and seen by cardiology. Urine cultures positive for E coli. Maintained on zosyn through 12/01 for 7 day course. Weaned off pressors. Anemia noted and transfused 1U PRBC on 11/27. Pt stable and transferred to the [facility] 11/30 under the hospitalist service. Pt/OT recommending SNF and pt agreeable awaiting auth 12/01: Pt seen and examined. No complaints today. States she has chosen SNF's and awaiting insurance approval . Hgb stable Past Medical History: Medical History[1] Past Surgical History: Surgical History[2] Medications: Scheduled PRN Scheduled Meds[3] PRN Meds[4] Continuous Continuous Meds[5] Allergies: Lisinopril Social History: Social History Socioeconomic History Marital status: Spouse name: Not on file Number of children: Not on file Years of education: Not on file Highest education level: Not on file Occupational History Not on file Tobacco Use Smoking status: Former Smokeless tobacco: Former Tobacco comments: Quit smoking: quit 10 years ago Substance and Sexual Activity Alcohol use: Yes Comment: week ends Drug use: No Sexual activity: Not on file Other Topics Concern Not on file Social History Narrative Not on file Social Drivers of Health Financial Resource Strain: Not on file Food Insecurity: Not on file Transportation Needs: Not on file Physical Activity: Not on file Stress: Not on file Social Connections: Not on file Intimate Partner Violence: Not At Risk (11/24/2024) Humiliation, Afraid, Rape, and Kick questionnaire Fear of Current or Ex-Partner: No Emotionally Abused: No Physically Abused: No Sexually Abused: No Housing Stability: Not on file Family History: Family History[6] REVIEW OF SYSTEMS: 10 point ROS obtained, as per HPI, otherwise NEG Physical Exam: Vitals: BP 156/75 Pulse 72 Temp 36.4 C (97.5 F) (Temporal) Resp 16 Ht 5' 6" (1.676 m) Wt 288 lb (131 kg) SpO2 99% BMI 46.48 kg/m BMI Classification: Morbidly Obese (>40.0) Pulse Ox: SpO2 Av.3 % Min: 96 % Max: 99 % Supplemental O2: GENERAL: Lying in bed comfortably, awake and alert HEENT: normocephalic, non-traumatic, MMM NECK: supple, trachea midline, RIJ CVC HEART: RRR, normal S1 and S2 LUNGS: good breath sounds bilaterally, no wheeze, no rhonchi, no rales ABD: soft, obese SKIN: warm, dry, erythema and edema LE with open and healing wounds, sacral/buttocks wounds PSYCH: appropriate affect LABS: Recent Results (from the past 24 hours) Basic metabolic panel Collection Time: 11/30/24 8:33 PM Result Value Ref Range SODIUM 143 136 - 145 mmol/L POTASSIUM 2.3 (LL) 3.5 - 5.1 mmol/L CHLORIDE 108 (H) 98 - 107 mmol/L CARBON DIOXIDE 24 23 - 31 mmol/L UREA NITROGEN 12 9 - 23 mg/dL CREATININE 0.63 0.57 - 1.11 mg/dL GLUCOSE 82 82 - 115 mg/dL CALCIUM 9.2 8.8 - 10.0 mg/dL ANION GAP 11 3 - 13 mmol/L eGFR >90.0 >60.0 mL/min/1.73m*2 CBC auto differential Collection Time: 12/01/24 3:02 AM Result Value Ref Range Auto WBC 6.9 3.6 - 10.7 10*3/uL RBC 2.24 (L) 3.80 - 5.20 10*6/uL Hemoglobin 7.6 (L) 11.7 - 16.0 g/dL Hematocrit 23.1 (L) 35.0 - 47.0 % MCV 103.1 (H) 77.0 - 99.0 fL MCH 33.9 26.0 - 34.0 pg MCHC 32.9 30.5 - 36.0 % RDW 16.6 (H) 11.5 - 15.0 % Platelets 60 (L) 140 - 440 10*3/uL MPV 10.9 9.0 - 12.7 fL nRBC 0.6 0.0 - 2.0 /100 WBCs Neutrophils Relative 69.2 38.0 - 82.0 % Lymphocytes Relative 17.8 15.0 - 45.0 % Monocytes Relative 6.5 5.0 - 13.0 % Eosinophils Relative 1.3 0.0 - 6.0 % Basophils Relative 0.3 0.0 - 2.0 % Immature Grans % 4.9 (H) 0.0 - 2.0 % Neutrophils Absolute 4.8 1.8 - 7.5 10*3/uL Lymphocytes Absolute 1.2 1.0 - 4.3 10*3/uL Monocytes Absolute 0.5 0.0 - 0.9 10*3/uL Eosinophils Absolute 0.1 0.0 - 0.5 10*3/uL Basophils Absolute 0.0 0.0 - 0.2 10*3/uL Immature Grans Absolute 0.3 (H) <0.1 10*3/uL IPF 4 Magnesium Collection Time: 12/01/24 3:02 AM Result Value Ref Range MAGNESIUM 2.0 1.6 - 2.6 mg/dL Phosphorus Collection Time: 12/01/24 3:02 AM Result Value Ref Range PHOSPHORUS 2.7 2.3 - 4.7 mg/dL Calcium, ionized Collection Time: 12/01/24 3:18 AM Result Value Ref Range Calcium, Ion 4.60 4.30 - 5.20 mg/dL PH, IONIZED CALCIUM 7.48 (H) 7.31 - 7.46 POCT glucose meter Collection Time: 12/01/24 7:46 AM Result Value Ref Range Glucose 73 70 - 100 mg/dL POCT glucose meter Collection Time: 12/01/24 11:47 AM Result Value Ref Range Glucose 96 70 - 100 mg/dL Urine Culture: Results for orders placed or performed during the hospital encounter of 11/24/24 Urine culture Collection Time: 11/24/24 10:20 PM Specimen: Urine, Clean Catch Result Value Ref Range Urine Culture Normal urogenital rula present Urine Culture 10,000-50,000 CFU/mL Escherichia coli (A) Susceptibility Escherichia coli - BROTH MICRODILUTION Amoxicillin / Clavulanate <=2 Susceptible ug/ml Ampicillin 4 Susceptible ug/ml Ampicillin / Sulbactam <=2 Susceptible ug/ml Aztreonam <=1 Susceptible ug/ml Cefazolin 2 Susceptible ug/ml Cefepime <=0.12 Susceptible ug/ml Ceftriaxone <=0.25 Susceptible ug/ml Ciprofloxacin <=0.06 Susceptible ug/ml Ertapenem <=0.12 Susceptible ug/ml Gentamicin <=1 Susceptible ug/ml Levofloxacin <=0.12 Susceptible ug/ml Meropenem <=0.25 Susceptible ug/ml Nitrofurantoin <=16 Susceptible ug/ml Piperacillin / Tazobactam <=4 Susceptible ug/ml Trimethoprim / Sulfamethoxazole <=20 Susceptible ug/ml IMAGING: See report Assessment Data: Acute, acute on chronic, unstable/uncontrolled chronic problems/diagnoses: Shock, likely hypovolemic and septic due to bacteroides LLE and buttocks wounds, E coli UTI Intermittent bradycardia Bilateral LE edema, negative for DVT HOGAN WILIAN with NAGMA, hypokalemia Macrocytic anemia, thrombocytopenia Malnutrition Depression/anxiety Staph epi blood culture - contaminant, 1/2 cultures and repeat negative Stable chronic problems affecting care, new non-acute diagnoses: Hx of DVT on xarelto - holding due to thrombocytopenia HTN Morbid obesity Plan As a result of the above findings & factors, the following mgmt was pursued: - cont meds as ordered - Zosyn for 7 day course (12/01) - wound care - am labs, replace lytes prn - PT/OT/CM/SW - delirium precautions: increase activity and limit nighttime disturbances - DVT prophylaxis: encourage ambulation Advance Directive: Full Code Anticipated Discharge - Date - 1-2 days - Location - Skilled Facility - Pending the following - auth Total time spent (which include face to face and non face to face encounters) : 75 minutes Extended Emergency Contact Information Primary Emergency Contact: Justin Collier Mobile Relation: Spouse Plate Roller needed? No Justo Tejada DO Division of Hospitalist Medicine [facility] [1] Past Medical History: Diagnosis Date Blood clot in vein bilateral legs Hypertension Post-thrombotic syndrome Venous ulcer (CMS/HCC) (HCC) left leg [2] Past Surgical History: Procedure Laterality Date EXTREMITY SURGERY lle HYSTERECTOMY SKIN GRAFT Left 2006 [3] buPROPion SR, 100 mg, Oral, BID chlorhexidine, , Topical, Daily collagenase, , Topical, Daily [Held by provider] enoxaparin, 40 mg, SubCUTAneous, q24h folic acid, 1 mg, Oral, Daily Hydrocortisone Sod Suc (PF), 50 mg, IntraVENous, Daily miconazole, , Topical, BID pantoprazole, 40 mg, Oral, Daily Or pantoprazole (ProtoNix) 40 mg in sodium chloride (PF) 0.9 % 10 mL injection, 40 mg, IntraVENous, Daily Petrolatum, , Topical, Daily Petrolatum, , Topical, BID piperacillin-tazobactam, 4,500 mg, IntraVENous, q6h sodium chloride 0.9%, 5-40 mL, IntraCATHeter, q8h stomahesive in petrolatum, , Topical, q8h [4] PRN medications: acetaminophen, dextrose, dextrose, glucagon (rDNA), glucose, naloxone, ondansetron ODT OR ondansetron, oxyCODONE OR oxyCODONE, polyethylene glycol (PEG) 3350, sodium chloride 0.9%, stomahesive in petrolatum [5] [6] Family History Problem Relation Name Age of Onset High Blood Pressure Paternal Grandmother High Blood Pressure Father High Blood Pressure Maternal Grandmother Associated Order(s): IP CONSULT TO DIETITIAN Nutrition Assessment Type and Reason for Visit: Reassess, Consult (Poor Intake/Appetite 5 or more days, Patient Requested to Consult with Dietitian, Diet Education: heart healthy, high protein, weight loss) Nutrition Recommendations/Plan: Pt is currently ordered a Regular Diet. To aide in fluid management/edema, could consider addition of low sodium diet restrictions (generalized +2 moderate pitting, BUE moderate, RLE +4 very deep pitting, LLE +3 deep pitting edema at this time). 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 Pt is currently ordered Ensure Max TID (was initiated per RD at once daily and order modified by RN to TID), pt states that she was ok with the Ensure at first but now she is burnt out on it- accumulation of 4 unopened ONS at bedside. Pt is interested in trying Snyder Jair now that her appetite is improving. Per MNT Protocol will adjust ONS to Snyder Jair with lunch- pt only wishes to receive ONS once daily due to feeling like she will get burnt out on it if she does it more than once daily. Home going diet discussion had with pt today as per consult- pt does have knowledge about healthy diet and would like to make changes it is just a matter of making the changes once she gets back home- was motivated to make changes following residential 1 month ago but then began to decline at home. 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 x4-5 days, appetite is now improving and she is eating better at meals, wants Ensure Max adjusted to Jair) Weight Loss: No significant weight loss (pt endorses stable weight DOORMAKER, pt CBW 293# no method 11/28, was 277# bedsclae on arrival 11/24, per EPIC review --> limited recent history however noted 07/02/22: 270#, 10/16/22: 286#, 10/12/24: 283.4# which indicates mcfp stable weight) Body Fat Loss: No significant body fat loss Muscle Mass Loss: No significant muscle mass loss Fluid Accumulation: Moderate to Severe (generalized +2 moderate pitting, BUE moderate, RLE +4 very deep pitting, LLE +3 deep pitting edema per flowsheets) State [employer]oper Strength: Not Performed Nutrition Assessment: pt with previously reviewed PMH who remains admitted to the ICU after she initially presented to [facility] ED on 11/24/24 with complaint of one week of generalized weakness and fatigue, on 11/20 pt was unable to get up from her chair due to weakness even with assistance from , pt remained in chair until calling EMS on 11/24, incontinent of stool and urine during this time, pt reported decreased appetite during this time- only having bites of toast or sips of water, pt also reported dizziness, pt with baseline poor mobility 2/2 OA knees which led to her residential 1 month ago, upon arrival to the ED pt was alert and oriented with normal O2 sats, vitals of note included BP 82/51, HR 58, Temp 35.8, RR 18, pt was given sepsis bolus and was ultimately started on pressors, pt was broadly cultured/including wounds cultures to LLE wound, ICU was consulted for further management and pt was transferred, Surgery was consulted for possible debridement of wound and recommended wound care consult for management as wounds not felt to require debridement, on 11/25 pt with ongoing pressor requirement- arterial line and CVC placed, pt also with ongoing hypokalemia requirement frequent replacement, ongoing periods of bradycardia with HR in the low 50's, on 11/26 pt with decreasing pressors requirement and improved mentation, bicarb drip was initiated for ongoing NAGMA, Cardiology evaluated due to ongoing periods of bradycardia with no intervention planned at this time and signed off, on 11/27 hgb 6.8- pt transfused 1 unit PRBC, vasopressin weaned off, on 11/28 pt with pending anemia work up, pt reporting depression and requested to see Psychiatry and she was subsequently started on bupropion. New consult placed to RD for diet education per pt request and poor appetite and PO, in terms of nutrition throughout admit pt was initiated on a Regular Diet on arrival 11/24 which remains ordered, no PO intakes in flowsheets to review, Ensure Max was initiated once daily by RD following initial assessment and order was changed to Ensure Max TID by RN, RD spoke with pt in room today, pt is in much better spirits as compared to initial assessment, pt hair is braided and she reported that she feels much improved, pt states that she is finally starting to get her appetite back, she states that she has been 'addicted' to the lobato aust[place]ian yogurt cup which she has been having for breakfast, states that she also had eggs which she enjoyed, pt states that she was able to have the fish with brown rice for dinner yesterday which she very much enjoyed because she states she doesn't get to eat fish much at home because her 'only likes beef', pt states that after he residential 1 month ago she had plans to make changes to her diet in efforts to be healthier 'because I knew our diet wasn't too good' but states that she had issues with weakness and now is hospitalized, pt states that she would love to have lean meats such as chicken and fish but states her prefers red meat and she states he doesn't eat leftovers, pt states that she knows what she needs to do to make diet changes/be healthier its just a matter of making the changes, pt noted to have 4 unopened Ensure at bedside, she states she was ok with once daily but then the order got changes and she states 'its a little overwhelming', discussed another ONS option now that pt appetite and intake is improving at meals and pt is interested in trying Snyder Jair- will adjust ONS order- pt wants to only receive ONS once daily as she is fearful she will 'burn out on that one too', pt agreeable for RD to attach heart healthy diet information to her discharge paperwork as well as RD contact information for questions/concerns when she is discharged- per interview pt does have knowledge about healthy diet and would like to make changes it is just a matter of making the changes once she gets back home. Nutrition Related Findings: Lives with: Spouse/significant other, Orientation Level: Oriented X4, Cognition: Appropriate judgement, Appropriate safety awareness, Appropriate attention/concentration, Appropriate for developmental age, Follows commands, Best Verbal Response: Oriented, Patient Behaviors/Mood: Calm, Cooperative Teeth: Intact Swallow: Able to swallow solids and liquids without difficulty Feeding: Independent Victor Hugo Scale Score: 13. Wound Type: (wound care following- right leg venous stasis dermatitis, left proximal and distal lower leg venous ulcer, left abdomen folds, rosaura-area fungal dermatitis and right and left breast fungal dermatitis, bilateral buttock unstageable PI, left hip stage 3 PI) Net IO Since Admission: -1,189.43 mL [11/29/24 1024] Gastrointestinal (WDL): Exceptions to WDL Bowel Sounds (All Quadrants): Active Abdomen Inspection: Soft, Distended, Rounded Last BM Date: 11/28/24, Stool Appearance: Loose, Stool Color: Brown Edema: Generalized Edema: Moderate pitting, indentation subsides rapidly, RUE Edema: Moderate, LUE Edema: Moderate, RLE Edema: Very deep pitting, indentation lasts a long time, LLE Edema: Deep pitting, indentation remains for a short time Oxygen Therapy: None (Room air) Labs and meds reviewed: Scheduled: Scheduled Meds[1] Continuous: Continuous Meds[2] Current Nutrition Therapies: Adult diet Regular Current Oral Intake Average Meal Intake: 51-75% (pt states appetite is improving at meals over the past couple days) Average Supplements Intake: (pt states she did ok with Ensure at first but quickly burnt out on it, agreeable to try Jair) Anthropometric Measures: Height: 167.6 cm (5' 6") Current Body Weight: 133 kg (293 lb) (no method 11/28) Weight Source: Not Specified Admission Body Weight: 126 kg (277 lb) (bedscale 11/24, 280# stated same date) Usual Body Weight: (per EPIC review --> limited recent history however noted 07/02/22: 270#, 10/16/22: 286#, 10/12/24: 283.4# which indicates mcfp stable weight) [place] Body Weight (lbs) (Calculated): 130 lbs [place] Body Weight (Kg) (Calculated): 59 kg % [place] Body Weight (Calculated): 225.4 % BMI (kg/m2) (Calculated): 47.3 Weight Adjustment For: No Adjustment BMI Categories: Obese Class 3 (BMI 40.0 or greater) Nutrition Interventions: Nutrition Education/Counseling: Survival skills/brief education completed (discussed healthy diet recommendations) Coordination of Nutrition Care: Continue to monitor while inpatient Plan of Care discussed with: pt Goals: Previous Goal Met: Progressing toward Goal(s) Goals: PO intake 75% or greater, by next RD assessment Nutrition Monitoring and Evaluation: Behavioral-Environmental Outcomes: None Identified Food/Nutrient Intake Outcomes: Food and Nutrient Intake, Supplement Intake Physical Signs/Symptoms Outcomes: Biochemical Data, GI Status, Fluid Status or Edema, Hemodynamic Status, Meal Time Behavior, Weight, Skin, Nutrition Focused Physical Findings Discharge Planning: Recommend pursue outpatient nutrition counseling Jennifer Senior RD Contact: available via [employer] chat or *[phone] [1] acetaminophen, 1,000 mg, Oral, q8h buPROPion SR, 100 mg, Oral, BID chlorhexidine, , Topical, Daily collagenase, , Topical, Daily [Held by provider] enoxaparin, 40 mg, SubCUTAneous, q24h folic acid, 1 mg, Oral, Daily Hydrocortisone Sod Suc (PF), 50 mg, IntraVENous, q8h miconazole, , Topical, BID pantoprazole, 40 mg, Oral, Daily Or pantoprazole (ProtoNix) 40 mg in sodium chloride (PF) 0.9 % 10 mL injection, 40 mg, IntraVENous, Daily Petrolatum, , Topical, Daily Petrolatum, , Topical, BID piperacillin-tazobactam, 4,500 mg, IntraVENous, q6h potassium phosphates 15 mmol in sodium chloride 0.9 % 100 mL IVPB, 15 mmol, IntraVENous, Once sodium chloride 0.9%, 5-40 mL, IntraCATHeter, q8h stomahesive in petrolatum, , Topical, q8h [2] Associated Order(s): IP CONSULT TO PSYCHIATRY Images from the original note were not included. [facility] Department of Psychiatry Nurse Practitioner Consult Note Please contact [facility] Listed in [facility] On-Call Finder Mon-Fri: From 1700 - 0800 and Weekends IDENTIFYING INFORMATION Name: Maxwell Collier : 1960 TODAY'S DATE: 11/28/24 ADMISSION DATE: 11/24/2024 Reason for Psychiatric Consult: depression, failure to thrive, asking for help and anti-depressant" Requesting Physician: CHING Kim Consulting Practitioner: [facility] Day: 3 SUBJECTIVE: CHIEF COMPLAINT: CC: Chief Complaint Patient presents with Failure To Thrive Pt arrived from home for failure to thrive. Pt states she has been in so much pain that she has been unable to get out of her chair x1 week. Principal Problem: Wound of left lower extremity, initial encounter History obtained from: Patient and Chart Review HISTORY OF PRESENT ILLNESS: HPI: Maxwell Collier is a 64 y.o., female who was hospitalized at [facility] for Wound of left lower extremity, initial encounter on 11/24/2024. PMH of HTN, knee OA, DVT on Xarelto who presented to [facility] on 11/24/24 for one week of generalized weakness and fatigue. Extensive LLE wounds and edema. Psychiatry consulted for depression Today, pt is seen resting in ICU, pt is alert and oriented x 3, and is cooperative with interview. Denies any previously diagnosed mental health hx but notes suffering from depression and anxiety since Covid. She reports she has attempted to speak with PCP in past but due to being on Xarelto felt dismissed. She also reports she comes across as a happy individual but has been suffering. She notes anxiety resolved with Covid becoming controlled but depression persisted. She endorses depressed/low mood, anhedonia, feeling hopeless and helpless, decreased energy and had stopped caring for self. She states she does not feel like doing anything and reports her and use to have a social life but since Covid started do not engage socially anymore. Pt states she believes they will stop Xarelto due to wounds and how long she has been on thinner. She would like to initiate an antidepressant at this time. She denies any previous mental health medications, OP servies or medications. Pt denies any suicidal/homicidal ideation, intent or plan. No gisell noted and no s/s of psychosis. Medication options were reviewed; Education performed on risks, benefits, side effects, expectations of treatment, importance of compliance, risks of declining treatment, as well as alternative treatments. Patient given ample time to ask questions and review any concerns. REVIEW OF SYSTEMS: MEDICAL & PSYCHIATRIC REVIEW OF SYMPTOMS: All ROS was completed and was negative unless stated above Medications: Current Facility Administered Medications: Current Facility-Administered Medications: acetaminophen (Tylenol) tablet 1,000 mg, 1,000 mg, Oral, q8h, Maxwell Devi DO, 1,000 mg at 11/28/24 1334 [START ON 11/29/2024] buPROPion SR (Wellbutrin SR) 12 hr tablet 100 mg, 100 mg, Oral, BID, LEANN Arceo CNP chlorhexidine (Hibiclens) 4 % solution, , Topical, Daily, LEANN John CNP, Given at 11/27/24 1409 collagenase 250 UNIT/GM ointment, , Topical, Daily, LEANN Woodall CNP, Given at 11/28/24 0859 dextrose 5 % infusion, 100 mL/hr, IntraVENous, PRN, Miah Raines MD dextrose 50 % solution 12.5 g, 12.5 g, IntraVENous, PRN, Miah Raines MD [Held by provider] enoxaparin (Lovenox) syringe 40 mg, 40 mg, SubCUTAneous, q24h, LEANN John CNP, 40 mg at 11/27/24 1430 folic acid (Folvite) tablet 1 mg, 1 mg, Oral, Daily, Maxwell Devi DO, 1 mg at 11/28/24 0858 glucagon (human recombinant) injection 1 mg, 1 mg, IntraMUSCular, PRN, Miah Raines MD glucose oral gel 15 g, 15 g, Oral, PRN, Miah Raines MD Hydrocortisone Sod Suc (PF) (Solu-CORTEF) injection 50 mg, 50 mg, IntraVENous, q8h, Sonia Tania Pachecoa WIRE ROPE SALES REPRESENTATIVE - SOFTWARE SALES CONSULTANT, 50 mg at 11/28/24 1334 lidocaine (Uro-Jet) 2 % gel, , Urethral, PRN, Abdi Alcantara, miconazole (Micotin) 2 % powder, , Topical, BID, Sonia Malloy APRN - SHIVAM, Given at 11/28/24 0900 mupirocin (Bactroban) 2 % ointment 1 Application, 1 Application, Nasal, BID, Maxwell Devi DO, 1 Application at 11/28/24 0900 naloxone (Narcan) injection 0.4 mg, 0.4 mg, IntraVENous, q5 min PRN, Maxwell Devi DO ondansetron ODT (Zofran-ODT) disintegrating tablet 4 mg, 4 mg, Oral, q8h PRN OR ondansetron (Zofran) injection 4 mg, 4 mg, IntraVENous, q6h PRN, Maxwell Devi DO oxyCODONE (Roxicodone) immediate release tablet 5 mg, 5 mg, Oral, q6h PRN, 5 mg at 11/28/24 1211 OR oxyCODONE (Roxicodone) immediate release tablet 10 mg, 10 mg, Oral, q6h PRN, Maxwell Devi DO pantoprazole (ProtoNix) EC tablet 40 mg, 40 mg, Oral, Daily, 40 mg at 11/28/24 0858 OR pantoprazole (ProtoNix) 40 mg in sodium chloride (PF) 0.9 % 10 mL injection, 40 mg, IntraVENous, Daily, Sonia Santos WIRE ROPE SALES REPRESENTATIVE - SOFTWARE SALES CONSULTANT, 40 mg at 11/26/24 0838 Petrolatum ointment, , Topical, Daily, LEANN Woodall CNP, Given at 11/28/24 0655 Petrolatum ointment, , Topical, BID, Olive Lane APRN - SOFTWARE SALES CONSULTANT piperacillin-tazobactam (Zosyn) 4,500 mg in sodium chloride 0.9 % 100 mL IVPB Mini-Bag Plus, 4,500 mg, IntraVENous, q6h, Maxwell Devi DO, Last Rate: 33.3 mL/hr at 11/28/24 1211, 4,500 mg at 11/28/24 1211 polyethylene glycol (PEG) 3350 (Miralax) packet 17 g, 17 g, Oral, Daily PRN, Maxwell Devi DO potassium chloride (Klor-Con) packet 40 mEq, 40 mEq, Oral, TID, Sonia M Bica, WIRE ROPE SALES REPRESENTATIVE - SOFTWARE SALES CONSULTANT, 40 mEq at 11/28/24 1334 sodium chloride 0.9 % infusion, 250 mL/hr, IntraVENous, PRN, Sonia M Bica, WIRE ROPE SALES REPRESENTATIVE - SOFTWARE SALES CONSULTANT sodium chloride 0.9% (NS) flush 5-40 mL, 5-40 mL, IntraCATHeter, q8h, Sonia M Bica, WIRE ROPE SALES REPRESENTATIVE - SOFTWARE SALES CONSULTANT, 10 mL at 11/28/24 0859 sodium chloride 0.9% (NS) flush 5-40 mL, 5-40 mL, IntraVENous, PRN, Sonia M Bica, WIRE ROPE SALES REPRESENTATIVE - SOFTWARE SALES CONSULTANT stomahesive in petrolatum (ET Mix), , Topical, PRN, Sonia Malloy, WIRE ROPE SALES REPRESENTATIVE - SOFTWARE SALES CONSULTANT, Given at 11/25/24 0903 stomahesive in petrolatum (ET Mix), , Topical, q8h, Sonia Malloy, WIRE ROPE SALES REPRESENTATIVE - SOFTWARE SALES CONSULTANT, Given at 11/28/24 0151 vancomycin IVPB 1500 mg in 250 mL NS (premix), 1,500 mg, IntraVENous, q18h, Maxwell Devi DO, Stopped at 11/28/24 0150 Medications Prior to Admission: Current Outpatient Medications Medication Instructions amLODIPine (Norvasc) 10 MG tablet No dose, route, or frequency recorded. carvedilol (Coreg) 6.25 MG tablet No dose, route, or frequency recorded. famotidine (PEPCID) 20 mg, Oral folic acid (Folvite) 1 MG tablet Daily hydroCHLOROthiazide (HYDRODiuril) 25 MG tablet No dose, route, or frequency recorded. potassium chloride ER (Micro-K) 10 MEQ ER capsule 1 capsule, Oral, Daily traMADol (ULTRAM) 50 mg, Oral, Every 12 hours PRN Xarelto 20 MG tablet Daily Allergies: Allergies Allergen Reactions Lisinopril Swelling History: Past Medical and Psychiatric History: Past Medical History: Diagnosis Date Blood clot in vein bilateral legs Hypertension Post-thrombotic syndrome Venous ulcer (CMS/HCC) (HCC) left leg Family Psychiatric and Medical History: Family History Problem Relation Name Age of Onset High Blood Pressure Paternal Grandmother High Blood Pressure Father High Blood Pressure Maternal Grandmother PAST SURGICAL HISTORY Past Surgical History: Procedure Laterality Date EXTREMITY SURGERY lle HYSTERECTOMY SKIN GRAFT Left 2006 Social History: , lives in [place], no children is retired. Social History Tobacco Use Smoking status: Former Smokeless tobacco: Former Tobacco comments: Quit smoking: quit 10 years ago Substance Use Topics Alcohol use: Yes Comment: week ends Drug use: No Social Drivers of Health Tobacco Use: Medium Risk (11/26/2024) Patient History Smoking Tobacco Use: Former Smokeless Tobacco Use: Former Passive Exposure: Not on file Alcohol Use: Alcohol Misuse (11/24/2024) AUDIT-C Frequency of Alcohol Consumption: 2-3 times a week Average Number of Drinks: 3 or 4 Frequency of Binge Drinking: Never Financial Resource Strain: Not on file Food Insecurity: Not on file Transportation Needs: Not on file Physical Activity: Not on file Stress: Not on file Social Connections: Not on file Intimate Partner Violence: Not At Risk (11/24/2024) Humiliation, Afraid, Rape, and Kick questionnaire Fear of Current or Ex-Partner: No Emotionally Abused: No Physically Abused: No Sexually Abused: No Depression: Not on file Housing Stability: Not on file Utilities: Not on file Health Literacy: Not on file OBJECTIVE: PHYSICAL/PSYCHIATRIC EXAM: Vitals: Vitals: 11/28/24 1000 11/28/24 1100 11/28/24 1200 11/28/24 1300 BP: 120/57 132/76 120/76 (!) 87/66 BP Location: Patient Position: Pulse: 71 68 75 70 Resp: 15 13 20 18 Temp: TempSrc: SpO2: 99% 99% 97% 100% Weight: Height: Physical Exam: Physical Exam Vitals and nursing note reviewed. Constitutional: Appearance: She is obese. She is ill-appearing. HENT: Head: Normocephalic. Cardiovascular: Rate and Rhythm: Normal rate. Skin: Findings: Wound present. Neurological: Mental Status: She is oriented to person, place, and time. Mental Status Exam: MSE: General Observations: Appearance: Appears Stated Age Behavior/Demeanor: Cooperative Speech: WNL Eye Contact: good Motor: decreased Cognition: Oriented to: Person, Place, Time, and Situation Level of Consciousness: Alert Memory Disturbance: no Mood and Affect: Mood: Depressed/Sad Affect: Congruent with Mood Thought: Thought Processes: Organized Thought Content: No evidence of psychosis/delusions/gisell Suicidal Ideation: None Reported Homicidal Ideation: None Reported Thought Perceptions: WNL Insight and Judgment: Insight: Fair Judgment: Fair Data Reviewed: Prior records have been reviewed in EMR Labs/Diagnostics: Recent Results (from the past 24 hours) Hemoglobin and hematocrit, blood Collection Time: 11/27/24 3:38 PM Result Value Ref Range Hemoglobin 7.3 (L) 11.7 - 16.0 g/dL Hematocrit 21.1 (L) 35.0 - 47.0 % Basic metabolic panel Collection Time: 11/27/24 8:10 PM Result Value Ref Range SODIUM 138 136 - 145 mmol/L POTASSIUM 4.0 3.5 - 5.1 mmol/L CHLORIDE 109 (H) 98 - 107 mmol/L CARBON DIOXIDE 21 (L) 23 - 31 mmol/L UREA NITROGEN 17 9 - 23 mg/dL CREATININE 0.60 0.57 - 1.11 mg/dL GLUCOSE 150 (H) 82 - 115 mg/dL CALCIUM 8.3 (L) 8.8 - 10.0 mg/dL ANION GAP 8 3 - 13 mmol/L eGFR >90.0 >60.0 mL/min/1.73m*2 CBC auto differential Collection Time: 11/28/24 4:03 AM Result Value Ref Range Auto WBC 7.3 3.6 - 10.7 10*3/uL RBC 2.19 (L) 3.80 - 5.20 10*6/uL Hemoglobin 7.5 (L) 11.7 - 16.0 g/dL Hematocrit 21.7 (L) 35.0 - 47.0 % MCV 99.1 (H) 77.0 - 99.0 fL MCH 34.2 (H) 26.0 - 34.0 pg MCHC 34.6 30.5 - 36.0 % RDW 16.4 (H) 11.5 - 15.0 % Platelets 69 (L) 140 - 440 10*3/uL MPV 10.2 9.0 - 12.7 fL IPF 3 Calcium, ionized Collection Time: 11/28/24 4:03 AM Result Value Ref Range Calcium, Ion 4.50 4.30 - 5.20 mg/dL PH, IONIZED CALCIUM 7.50 (H) 7.31 - 7.46 Magnesium Collection Time: 11/28/24 4:03 AM Result Value Ref Range MAGNESIUM 2.2 1.6 - 2.6 mg/dL Phosphorus Collection Time: 11/28/24 4:03 AM Result Value Ref Range PHOSPHORUS 1.4 (L) 2.3 - 4.7 mg/dL Vancomycin, AUC Timed Dosing Collection Time: 11/28/24 4:03 AM Result Value Ref Range VANCOMYCIN, AUC 29.5 ug/mL Basic metabolic panel Collection Time: 11/28/24 4:03 AM Result Value Ref Range SODIUM 139 136 - 145 mmol/L POTASSIUM 3.9 3.5 - 5.1 mmol/L CHLORIDE 110 (H) 98 - 107 mmol/L CARBON DIOXIDE 23 23 - 31 mmol/L UREA NITROGEN 16 9 - 23 mg/dL CREATININE 0.58 0.57 - 1.11 mg/dL GLUCOSE 137 (H) 82 - 115 mg/dL CALCIUM 8.5 (L) 8.8 - 10.0 mg/dL ANION GAP 6 3 - 13 mmol/L eGFR >90.0 >60.0 mL/min/1.73m*2 Bilirubin, total Collection Time: 11/28/24 4:03 AM Result Value Ref Range BILIRUBIN, TOTAL 1.0 <1.2 mg/dL Bilirubin, direct Collection Time: 11/28/24 4:03 AM Result Value Ref Range BILIRUBIN, DIRECT 0.6 (H) <0.5 mg/dL Haptoglobin Collection Time: 11/28/24 4:03 AM Result Value Ref Range HAPTOGLOBIN 140 50 - 270 mg/dL Lactate dehydrogenase Collection Time: 11/28/24 4:03 AM Result Value Ref Range LACTATE DEHYDROGENASE 186 125 - 220 U/L Blood culture Site #1 - Assess for effectiveness of treatment Collection Time: 11/28/24 4:03 AM Specimen: Blood, Venous Result Value Ref Range Blood Culture Blood culture incubation started Blood culture Site #2 - Assess for effectiveness of treatment Collection Time: 11/28/24 4:03 AM Specimen: Blood, Venous Result Value Ref Range Blood Culture Blood culture incubation started MANUAL DIFFERENTIAL (CELLAVISION) Collection Time: 11/28/24 4:03 AM Result Value Ref Range RBC Morphology Normal Neutrophils % 72 38 - 82 % Bands % 7 (H) <=0 % Lymphocytes % 17 15 - 45 % Monocytes % 3 (L) 5 - 13 % Myelocytes % 1 (H) <=0 % Absolute Neutrophil Count 5.8 1.8 - 7.5 10*3/uL Bands Absolute 0.5 (H) <=0.0 10*3/uL Lymphocytes Absolute 1.2 1.0 - 4.3 10*3/uL Monocytes Absolute 0.2 0.0 - 0.9 10*3/uL Myelocytes Absolute 0.1 (H) <=0.0 10*3/uL Neutrophils Manual 72 Lymphocytes Manual 17 Monocytes Manual 3 Eosinophils Manual Basophils Manual Bands Manual 7 Metamyelocytes Manual Myelocytes Manual 1 Promyelocytes Manual Blasts Manual Atypical Lymphocytes Manual Unclassified Cells, Manual Manual nRBC per 100 Cells 2 0 - 2 % C-reactive protein Collection Time: 11/28/24 4:03 AM Result Value Ref Range C REACTIVE PROTEIN 30.3 (H) <5.0 mg/L Reticulocytes Collection Time: 11/28/24 4:03 AM Result Value Ref Range Retic Ct Pct 1.84 % Lactate dehydrogenase Collection Time: 11/28/24 7:34 AM Result Value Ref Range LACTATE DEHYDROGENASE 178 125 - 220 U/L Basic metabolic panel Collection Time: 11/28/24 12:11 PM Result Value Ref Range SODIUM 139 136 - 145 mmol/L POTASSIUM 3.5 3.5 - 5.1 mmol/L CHLORIDE 108 (H) 98 - 107 mmol/L CARBON DIOXIDE 23 23 - 31 mmol/L UREA NITROGEN 15 9 - 23 mg/dL CREATININE 0.56 (L) 0.57 - 1.11 mg/dL GLUCOSE 137 (H) 82 - 115 mg/dL CALCIUM 8.5 (L) 8.8 - 10.0 mg/dL ANION GAP 8 3 - 13 mmol/L eGFR >90.0 >60.0 mL/min/1.73m*2 I reviewed pertinent laboratory results, radiographic results, Most recent EKG: Encounter Date: 11/24/24 ECG 12 lead Result Value Heart Rate 59 QRSD Interval 121 QT Interval 485 QTC Interval 507 P [place] -16 QRS [place] -7 T Wave [place] 87 [place] Interval 252 Impression Sinus rhythm MOBITZ I AV BLOCK (W[place]KEBACH Nonspecific intraventricular conduction delay Nonspecific repol abnormality, diffuse leads Electronically Signed On 11-27-2024 12:45:25 EDT by Saloni Miguel RISK ASSESSMENT: Risk of harm to self: Suicide Risk Assessment (SAFE-T): C-SSRS Screener (Since Last Contact): 1. Wish to be ? No 2. Current suicidal thoughts? No 3. Suicidal thoughts w/ method? 4. Suicidal Intent without specific plan? 5. Intent with plan? 6. Suicidal behavior? No Calculated C-SSRS Risk Score No Risk Indicated ASSESSMENT: Patient Active Problem List Diagnosis Angio-edema Essential (primary) hypertension Peripheral venous insufficiency Unilateral primary osteoarthritis, right knee Personal history of nicotine dependence Personal history of diseases of the blood and blood-forming organs and certain disorders involving the immune mechanism Wound of left lower extremity, initial encounter 1. Wound of left lower extremity, initial encounter 2. Wound infection 3. Lower extremity edema Depression, unspecified PLAN: RECOMMENDATIONS: Disposition: Pt is accepting of medical care, denies suicidal/homicidal ideation, intent or plan, and no noted gisell or psychosis. Pt does not meet criteria for inpatient psychiatric hospitalization. Medications: will begin trial of buproprion 100 mg BID Labs/Diagnostics: per primary Delirium precautions: Avoid sedating/anticholinergic medications, encourage sleep hygiene, minimize barriers to nutrition, optimize sensory input and access to assistive devices (dentures, glasses, etc) where indicated, encourage time up in chair as able, D/c Delgado, restraints, IV lines, as able and reserve agitation PRNs for instances where patient is danger to self/others/treatment. Recommendations shared with primary team. Follow up: will follow peripherally Please contact [facility] Listed in [facility] On-Call Finder for urgent needs Mon-Fri: From 1700 - 0800 and Weekends On this day, 11/28/24 , I spent total time 65 minutes preparing to see the pt, reviewing previous notes, obtaining/reviewing separately obtained, history, test results, and coordinating care with hospital staff and if pertinent outpatient providers, as well as documenting all relevant and pertinent clinical information in the patient's electronic record on the day of the visit. In addition,I was able to, spend face/face time counseling/educating the patient/family/caregiver, discuss the diagnosis, current symptom burden, medication side effects, medication change options, and importance of compliance with the treatment plan. For every encounter with this patient, if applicable this Provider wore appropriate PPE including but not limited to standard precautions, N95 mask, surgical mask, gown and/or protective eyewear. Chart reviewed, including notes, labs, imagining, allergies, and medications, all pertinent information discussed with medical staff, nursing, social work, and patient/family if necessary. Associated Order(s): IP CONSULT TO CARDIOLOGY Images from the original note were not included. [facility] [address] [place] [id number] Dept: [phone] This is a 64-year-old woman seen for bradycardia and concerns for atrioventricular block. Her history includes No chronic cardiovascular disease. I could not find any cardiovascular appointments. She confirms that she has never had any history of cardiovascular disease. Hypertension History of deep vein thrombosis with chronic venous ulcers of both lower extremities. By her history she has had this chronically and been on rivaroxaban for about 10 years having had a deep vein thrombosis in both legs, probably related to immobility. She was admitted to the hospital November 24, 2024 with failure to thrive. Apparently, she had so much pain that she was not able to get out of her chair for a week. She was found covered with feces and a wound to the left lower leg. By my history, she was a functional patient, retired a month ago primarily due to some problems with mobility that she relates to bilateral knee arthralgias. She simply became so weak that she could not get up out of her chair the last day or 2. She did eat and drink a little bit. Her is at home but he is limited because of back problems. I spoke with both of them. She did not have symptoms of infection such as fever, chills, sweats. She does have chronic lower extremity edema. She has not had chest pain or palpitations or any alarming dyspnea. She had 1 episode of syncope that she could remember back in 2019 when she was pretty sure that she had COVID. This would have been late in the year 2019. She is being evaluated for right total knee arthroplasty here at [facility]. Outpatient medications included amlodipine 10 mg daily, carvedilol 6.25 mg twice a day, famotidine 20 mg daily, folic acid 2 mg daily, hydrochlorothiazide 25 mg daily, potassium chloride 10 mill equivalents daily, tramadol 50 mg every 12 hours as needed and rivaroxaban 20 mg daily upon admission they felt that the wound was associated with significant infection. Soon hypotension was noted. She was also found to be hyponatremic, and acute kidney injury, high anion gap metabolic acidosis, anemic. Her initial hemoglobin was 9.1 her sodium was 126, BUN 92, creatinine 1.6. Looking through care everywhere I did not see any cardiovascular testing. On physical exam she appears in no acute distress. Her neck veins are normal. Her heart sounds are normal. She has bilateral pitting edema involving the pretibial areas and feet. Dorsalis pedis pulses are present. Her feet are warm. Her left leg is wrapped. She is breathing quietly at 30 degrees. An echocardiogram showed left ventricular ejection fraction of 65%, normal RV function, and no significant valvular disease. There was no pericardial effusion. My interpretation of her echocardiogram is that she has normal RV and LV function, no significant valvular disease, no pulmonary hypertension, and her right atrial pressure is 3, not about 8. I I would interpret her inferior vena cava as being normal size and decreasing with sniff. Venous studies of her legs showed no acute DVT My formal review of her electrocardiograms are sinus rhythm, first-degree AV block, pauses probably related to nonconducted atrial premature complexes, left axis deviation, early transition, nonspecific IVCD. Most recent labs show sodium of 138, potassium 2.4, BUN 32, creatinine 0.67, GFR greater than 90, albumin of 2.5, hemoglobin 8.1, platelets 129 My review of her chest x-ray is that it is normal. Medical decision making As far as AV block, she does have a first-degree AV block. There is always a concern about Mobitz type II second-degree AV block with these pauses. However, the one that I saw most concerning on the twelve-lead electrocardiogram was probably a nonconducted APCs. 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 This puts her at risk for venous ulcerations. It does not appear that she has any heart failure. She has no history of heart disease. She has no jugular venous distention. Her echocardiogram does not show high intracardiac pressures or a dilated inferior vena cava. Thus, treatment of her edema will be mechanical with support stockings, leg elevation. Recommend Continue to follow. If you see more episodes of pauses please contact me and I will review (or have electrophysiology review) her rhythm strips. Cardiac davila, I think she is fine and I will sign off. RBC Associated Order(s): INPATIENT CONSULT TO WOUND CARE PROVIDERS; INPATIENT CONSULT TO WOUND CARE PROVIDERS Images from the original note were not included. [facility] Wound Care CONSULT Note Maxwell Collier AGE: 64 y.o. GENDER: female : 1960 Subjective: HISTORY of PRESENT ILLNESS HPI Maxwell Collier is a 64 y.o. female who presents for a wound consult. HPI: Ms. Collier is a 64 y.o. female with PMH HTN, knee OA, DVT on Xarelto who presented to [facility] on 11/24/24 for one week of generalized weakness and fatigue. Patient reports four days ago she was unable to get up from her chair due to weakness, even with assistance from her , and did not get out of chair until calling EMS. Patient reports he wound to LLE has been present for over a year. She reports she use to see Dr. Alicia and he applied unna boots on her resulting in the proximal wound to the LLE. Wound Care consulted for venous ulcer to LLE, pressure injury buttocks, bilateral breast, abdomen folds and rosaura area. PAST MEDICAL HISTORY Past Medical History: Diagnosis Date Blood clot in vein bilateral legs Hypertension Venous ulcer (CMS/HCC) (HCC) left leg PAST SURGICAL HISTORY Past Surgical History: Procedure Laterality Date EXTREMITY SURGERY lle HYSTERECTOMY SKIN GRAFT Left 2006 FAMILY HISTORY Family History Problem Relation Name Age of Onset High Blood Pressure Paternal Grandmother High Blood Pressure Father High Blood Pressure Maternal Grandmother SOCIAL HISTORY Social History Tobacco Use Smoking status: Former Smokeless tobacco: Former Tobacco comments: Quit smoking: quit 10 years ago Substance Use Topics Alcohol use: Yes Comment: week ends Drug use: No ALLERGIES Allergies Allergen Reactions Lisinopril Swelling MEDICATIONS No current facility-administered medications on file prior to encounter. Current Outpatient Medications on File Prior to Encounter Medication Sig Dispense Refill amLODIPine (Norvasc) 10 MG tablet carvedilol (Coreg) 6.25 MG tablet famotidine (Pepcid) 20 MG tablet Take 20 mg by mouth. folic acid (Folvite) 1 MG tablet daily. hydroCHLOROthiazide (HYDRODiuril) 25 MG tablet potassium chloride ER (Micro-K) 10 MEQ ER capsule Take 1 capsule by mouth daily. traMADol (Ultram) 50 MG tablet Take 50 mg by mouth every 12 hours as needed. Xarelto 20 MG tablet daily. REVIEW OF SYSTEMS Pertinent items are noted in HPI. Objective: BP (!) 96/47 Pulse 83 Temp (!) 35.9 C (96.6 F) Resp 14 Ht 5' 6" (1.676 m) Wt 277 lb 12.5 oz (126 kg) SpO2 100% BMI 44.83 kg/m PHYSICAL EXAM General appearance: in no apparent distress, alert, and oriented times 3, obese Skin: warm and dry Pulmonary: Normal effort, no respiratory distress, no cyanosis Abdomen: soft, nontender, and nondistended Extremities: edema BLE, venous stasis dermatitis noted, lymphedema BLE Right lower leg: No openings. No drainage. Hemosiderin staining noted. 11/25/24 Left proximal medial lower le.0cmx12.0cmxUTD. Scab present to area. Scant serosang drainage. Periwound fragile Left distal medial lower le.0cmx9.0cmxUTD. Yellow slough to wound bed. Small serosang drainage. Periwound fragile 11/25/24 Left abdomen folds: [place]/Red rash noted to area. Moist skin noted. Fungal appearance Roasura-area: [place] rash noted to area. Moist skin noted. Fungal appearance 11/25/24 Left breast: [place]/Red rash noted to area. Moist skin noted. Scant serosang drainage. Fungal appearance 11/25/24 Right breast: [place] rash noted to area. Moist skin noted. Fungal appearance 11/25/24 Bilateral buttocks: Entire buttock area with non-blanchable red and maroon tissue. Moderate serosang drainage. Periwound fragile 11/25/24 Left hip: 1.3cmx30.0cmx0.2cm. Full-thickness pink tissue openings. Small serosang drainage. Periwound with bruising and fragile 11/25/24 LABS CBC: Lab Results Component Value Date WBC 8.5 11/25/2024 HGB 8.1 (L) 11/25/2024 HGB 8.8 11/24/2024 HCT 23.3 (L) 11/25/2024 MCV 101.7 (H) 11/25/2024 PLT 91 (L) 11/25/2024 BMP: Lab Results Component Value Date NA 132 (L) 11/25/2024 K 2.4 (LL) 11/25/2024 CL 105 11/25/2024 CO2 15 (L) 11/25/2024 PHOS 3.2 11/25/2024 BUN 68 (H) 11/25/2024 CREATININE 1.02 11/25/2024 PT/INR: No results found for: "PROTIME", "INR" Prealbumin: No results found for: PREALBUMIN Albumin:No components found for: LABALBU Sed Rate: Lab Results Component Value Date SEDRATE 45 (H) 11/24/2024 Micro: No components found for: BC Assessment/Plan: Nursing staff to perform dressing change: Right lower leg: Venous stasis dermatitis - Clean with soap and water, apply Aquaphor then leave PARVEEN daily Left Proximal lower leg: Venous ulcer (unknown) - Clean with NS, apply Santyl follow by adaptic then cover with ABD, Kerlix daily Left distal lower leg: Venous ulcer (unknown) - Clean with NS, apply Santyl follow by adaptic then cover with ABD, Kerlix daily Left abdomen folds: Fungal dermatitis - Clean with soap and water, dry well, apply Miconazole powder then leave [employer] BID Rosaura-area: Fungal dermatitis - Clean with soap and water, dry well, apply Miconazole powder then leave [employer] BID Right and Left breast: Fungal dermatitis - Clean with soap and water, dry well, apply Miconazole powder then leave PARVEEN BID Bilateral buttocks: Pressrue Injury (unstageble) - Clean with soap and water, apply ET mix then leave [employer] TID and PRN Left hip: Pressure Injury (Stage 3) - Clean with soap and water, apply ET mix then leave PARVEEN TID and PRN TCB bed Reposition q2hrs Incontinent checks q2hrs Nutritional support Wound Care to follow Recommend to follow up at [facility] Outpatient wound care center after hospital discharge. Any questions or concerns please secure chat "ACH wound/ostomy". Thank you for the consult! I personally obtained the pedro and critical portions of the history and physical exam. I reviewed the labs, imaging studies, and electronic medical record. I reviewed the chart documentation and discussed the patient with treatment team members. I have edited the note to reflect my clinical findings and my assessment and plan. Please note, the time of this note does not reflect the time I saw this patient today, but the time of this documentaton. Portions of this note including HPI, ROS, impression/plan, and examination may have been copied forward from admission to today as to provide important historical information essential in contributing to medical decision making. Documentation has been reviewed and edited as necessary to support clinical decision making for today's visit and to reflect my own independent evaluation of this patient. Decision making for today's visit and to reflect my own independent evaluation of this patient. Cosigned by Mamadou Vigil DO at 11/28/2024 5:00 PM EDT Images from the original note were not included. Pharmacy Managed Vancomycin Dosing Service Consult Note Consult Date: 11/24/24 Patient Name: Maxwell Collier Allergies: Lisinopril Age: 64 y.o. Sex: female Estimated body mass index is 44.83 kg/m as calculated from the following: Height as of this encounter: 1.676 m (5' 6"). Weight as of this encounter: 126 kg (277 lb 12.5 oz). DW: 126 kg Lab Results Component Value Date CREATININE 1.59 (H) 11/24/2024 CREATININE 0.65 11/03/2022 BUN 92 (H) 11/24/2024 BUN 13 11/03/2022 WBC 8.9 11/24/2024 WBC 6.0 11/03/2022 Calculated CrCl: 72.7 mL/min (Cockcroft-Gault) Consulted By: Maxwell Devi Infectious Diagnosis: skin & soft tissue infection (AUC Goal 400-600 mg/L*hr) Random Vancomycin Level Due: 11/26 Antimicrobials: Patient recently received an antibiotic (last 12 hours) Date/Time Action Medication Dose Rate 11/24/24 1801 New Bag piperacillin-tazobactam (Zosyn) 4,500 mg in sodium chloride 0.9 % 100 mL IVPB Mini-Bag Plus 4,500 mg 200 mL/hr 11/24/24 1800 Given vancomycin (Vancocin) 2,500 mg in sodium chloride 0.9 % 500 mL IVPB 2,500 mg 166.7 mL/hr Assessment/Plan: Doses, serum creatinine, and vancomycin levels interfaced automatically to [facility] and data has been analyzed and interpreted. Start Vancomycin 1000 mg every 24 hours based on patient age, weight, renal function, and infectious diagnosis (7.9 mg/kg). Predicted AUC = 498 mg/L*hr (goal 400-600 mg/L*hr) PAUC = 85% (probability that AUC is >400 mg/L*hr) Pconc = 14% (probability that Ctrough is above 20 mcg/mL (toxicity)) Will assess random level on 11/26/24 with AM labs and adjust as appropriate. Trend serum creatinine. Orders placed. Thank you for this consult. Please secure text or call with questions. DATE: 11/24/24 TIME: 11:05 PM Eleni Siddiqui PharmD Clinical Pharmacist Available via Secure Chat documented in this encounter [facility] 11-30-2024 Hospital Discharge instructions LEANN Arceo CNP - 11/30/2024 3:59 PM EDT [facility] Ariel Jane RN - 12/02/2024 12:32 PM EDT Images from the original note were not included. Continuity of Care Form Patient Name: Maxwell Collier : 1960 Admit date: 11/24/2024 Discharge date: 12/03/2024 Code Status Order: Full Code Advance Directives: N Admitting Physician: Miah Raines MD PCP: Priscilla Llanes MD Discharging Nurse: Bradly Marin RN Discharging Hospital Unit/Room#: N4-450/N4-450 A Discharging Unit Emergency Contact: Extended Emergency Contact Information Primary Emergency Contact: DomingoJustin brown Mobile Relation: Spouse Plate Roller needed? No Past Surgical History: Past Surgical History: Procedure Laterality Date EXTREMITY SURGERY lle HYSTERECTOMY SKIN GRAFT Left 2006 Immunization History: Immunization History Administered Date(s) Administered Moderna SARS-CoV-2 Vaccination 02/15/2021 Active Problems: Medical Problems Problem List * (Principal) Wound of left lower extremity, initial encounter Essential (primary) hypertension Peripheral venous insufficiency Unilateral primary osteoarthritis, right knee Personal history of nicotine dependence Personal history of diseases of the blood and blood-forming organs and certain disorders involving the immune mechanism Angio-edema Isolation/Infection: No active isolations No active infections Nurse Assessment: Last Vital Signs: BP 142/76 (BP Location: Left arm, Patient Position: Sitting) Pulse 64 Temp 36.3 C (97.3 F) (Temporal) Resp 16 Ht 5' 6" (1.676 m) Wt 287 lb 12.8 oz (131 kg) SpO2 99% BMI 46.45 kg/m Last documented pain score (0-10 scale): Last Weight: Wt Readings from Last 1 Encounters: 12/02/24 287 lb 12.8 oz (131 kg) Mental Status: MELBA Patient Mental Status: oriented IV Access: MELBA IV Access: None Nursing Mobility/ADLs: Walking Total assistance Transfer Total assistance Bathing Total assistance Dressing Total assistance Toileting Total assistance Feeding Minimal assistance Outside Sales Account Representative Minimal assistance Med Delivery yes Wound Care Documentation and Therapy: Wound/Incision 11/24/24 Pressure Injury Flank Left;Upper (Active) Wound Image 11/24/24 223 Site Assessment Fragile 12/01/24 1050 Rosaura-Wound Assessment Fragile;Red;Rash 12/01/24 1050 Drainage Description Red 11/29/241999 Odor Malodorous/putrid 11/29/241999 Drainage Amount Moderate 11/29/241999 Treatments Cleansed;Site care 11/29/241999 Primary Dressing Open to air 11/30/24 2030 Number of days: 7 Wound/Incision 11/24/24 Pressure Injury Flank Right;Upper (Active) Wound Image 11/24/24 223 Site Assessment Excoriated 11/30/242029 Rosaura-Wound Assessment Red 11/29/241999 Drainage Amount None 11/29/241999 Primary Dressing Open to air 12/01/24 1050 Number of days: 7 Wound/Incision 11/24/24 Pressure Injury Leg Anterior;Left;Proximal;Upper (Active) Wound Image 11/24/24 223 Site Assessment Excoriated 12/01/24 1050 Drainage Amount None 11/29/241999 Primary Dressing Open to air 12/01/24 1050 Number of days: 7 Wound/Incision 11/24/24 Pressure Injury Leg Anterior;Proximal;Right;Upper (Active) Wound Image 11/24/24 223 Site Assessment Red 12/01/24 1050 Drainage Amount None 11/28/24 0800 Primary Dressing Open to air 12/01/24 1050 Number of days: 7 Wound/Incision 11/24/24 Venous Ulcer Calf Anterior;Left (Active) Wound Image 11/24/24 223 Site Assessment Unable to assess 11/30/24 232 Rosaura-Wound Assessment Fragile 11/29/241999 Odor Malodorous/putrid 11/29/241999 Treatments Cleansed;Pharmaceutical agent 11/30/24 1200 Primary Dressing Adaptic;ABD;Rolled gauze (Kerlix) 11/30/24 232 Topical Santyl 11/30/24 1200 Dressing Status New dressing 12/01/24 1050 Number of days: 7 Wound/Incision 11/24/24 Pressure Injury Buttock (Active) Wound Image 11/24/24 2241 Site Assessment Fragile;Red;Bleeding 11/30/24 1200 Rosaura-Wound Assessment Red;Rash 11/29/24 2000 Drainage Description Red 11/28/24 0800 Odor Malodorous/putrid 11/29/24 2000 Drainage Amount Moderate 11/29/24 2000 Treatments Pharmaceutical agent 11/30/24 1200 Primary Dressing Open to air 11/30/24 1200 Number of days: 7 Wound/Incision 11/24/24 Pressure Injury Buttock Left (Active) Wound Image 11/24/24 2247 Site Assessment Red 11/30/24 0800 Drainage Description Red 11/29/24 2000 Drainage Amount None 11/29/24 2000 Primary Dressing Open to air 11/30/24 0800 Number of days: 7 Wound/Incision 11/26/24 Pressure Injury Heel Right (Active) Wound Image 11/28/24 0800 Site Assessment Purple 11/30/24 0800 Rosaura-Wound Assessment Dry 11/28/24 0800 Odor None 11/28/24 0800 Drainage Amount None 11/28/24 0800 Primary Dressing Open to air 11/30/24 0800 Number of days: 6 Wound/Incision 11/27/24 Skin Tear Calf Anterior;Right (Active) Wound Image 11/28/24 0608 Site Assessment Unable to assess 11/30/24 2322 Rosaura-Wound Assessment Red 11/29/24 2000 Drainage Amount Small 11/28/24 0800 Treatments Cleansed 11/30/24 1200 Primary Dressing ABD;Adaptic;Rolled gauze (Kerlix) 11/30/24 2322 Dressing Status Clean, dry & intact 11/30/24 2322 Number of days: 4 Elimination: Continence: Bowel: no Bladder: no Urinary Catheter: None Colostomy/Ileostomy/Ileal Conduit: None Date of Last BM: 12/02/2024 Intake/Output Summary (Last 24 hours) at 12/02/2024 1231 Last data filed at 12/01/2024 1500 Gross per 24 hour Intake 240 ml Output -- Net 240 ml I/O last 3 completed shifts: In: 240 (1.8 mL/kg) [P.O.:240] Out: 1000 (7.7 mL/kg) [Urine:1000 (0.2 mL/kg/hr)] Weight: 130.5 kg Safety Concerns: at risk for falls Impairments/Disabilities: none Nutrition Therapy: Current Nutrition Therapy: Oral diet: general Routes of Feeding: oral Liquids: thin liquids Daily Fluid Restriction: no Last Modified Barium Swallow with Video (Video Swallowing Test): not done Treatments at the Time of Hospital Discharge: Respiratory Treatments: None Oxygen Therapy: is not on home oxygen therapy. Ventilator: No ventilator support Rehab Therapies: physical therapy and occupational therapy Weight Bearing Status/Restrictions: no restriction Other Medical Equipment (for information only, NOT a DME order): bedside commode Other Treatments: n/a Patient's personal belongings (please select all that are sent with patient): all belongings and meds were collected and being sent with patient. RN SIGNATURE: MANAGEMENT/SOCIAL WORK SECTION Inpatient Status Date: 11/24/24 Discharging to Facility/ Agency Name: [facility] [address] [address] 12 hi [employer] Coach/President Educational Institution signature: ICIAN SECTION Name: Maxwell Collier Prognosis: good Condition at Discharge: stable Rehab Potential (if transferring to Rehab): good Recommended Labs or Other Treatments After Discharge: The individual is being admitted to a nursing facility directly from an [facility] or a unit of a hospital that is not operated by or licensed by [facility] under section 5119.14 or 5160-3-15.1 5 The individual requires the level of services provided by a nursing facility for the condition for which he or she was treated in the hospital and, Physician Certification: I certify the above information and transfer of Maxwell Collier is necessary for the continuing treatment of the diagnosis listed and that she requires fpc facility for less than 30 days. Update Admission H&P: No change in H&P PHYSICIAN SIGNATURE: The following attachments cannot be sent through Care Everywhere.Heart Healthy Diet (Lithuanian)documented in this encounter [facility] 11-25-2024 Note [facility] 11-25-2024 Procedure note Associated Ord er(s): Central Line Insertion Post-Procedure Diagnose(s): Wound infection Central Line Insertion Date/Time: 11/25/2024 6:24 PM Performed by: LEANN John CNP Authorized by: LEANN John CNP Consent: The indications, risks, benefits, alternatives to the procedure were explained to the patient/surrogate decision maker and their questions answered. Consent was obtained to proceed with the procedure. Timeout: Completed immediately prior to the start of the procedure which included verification of the correct patient, correct site and agreement on the procedure to be done. Indication: Infusion(s) with high risk of extravasation injury Anesthetic: Local anesthetic used: lidocaine without epinephrine Procedure Details: Preparation: skin prepped with chlorhexidine Skin prep agent dried: skin prep agent completely dried prior to procedure Sterile barriers: all five maximum sterile barriers used - cap, mask, sterile gown, sterile gloves, and large sterile sheet Hand hygiene: hand hygiene performed prior to central venous catheter insertion Sterile technique: Sterile technique maintained throughout procedure. Central Line Type: central venous catheter Orientation: right Location details: internal jugular Patient position: flat Catheter type: triple lumen Catheter size: 7 Fr Pre-procedure: landmarks identified Number of attempts: 1 Ultrasound guidance: yes Post-Procedure: Post-procedure: line sutured and antimicrobial dressing applied Description/Findings: dark, non-pulsatile blood return obtained from all lumens Estimated blood loss: < 5 mL Complications: No apparent complications Follow-up chest x-ray: completed, line in appropriate position Assistants & Supervision: I personally performed the procedure documented as signed by this procedure note Refining Engineer(s): N/A No supervision required Cosigned by Maria Isabel Mckeon DO at 12/03/2024 5:41 AM EDT Associated Order(s): Arterial Line Insertion Post-Procedure Diagnose(s): Wound of left lower extremity, initial encounter Arterial Line Insertion Date/Time: 11/25/2024 2:11 PM Performed by: LEANN John CNP Authorized by: LEANN John CNP Consent: The indications, risks, benefits, alternatives to the procedure were explained to the patient/surrogate decision maker and their questions answered. Consent was obtained to proceed with the procedure. Timeout: Completed immediately prior to the start of the procedure which included verification of the correct patient, correct site and agreement on the procedure to be done. Indications: Indications: hemodynamic monitoring Anesthetic: Local anesthetic used: lidocaine with epinephrine Preparation: Patient was prepped and draped in usual sterile fashion. Skin prepped: skin prepped with chlorhexidine Procedure Details: Orientation: right Location: radial Garrick's test normal: yes Number of attempts: 1 Post-Procedure: Post-procedure: line sutured and antimicrobial dressing applied Description/Findings: Bright red pulsatile blood return noted and Waveform confirmed Estimated blood loss: < 5 mL Complications: No apparent complications Assistants & Supervision: I personally performed the procedure documented as signed by this procedure note Refining Engineer(s): N/A No supervision required Cosigned by Maria sIabel Mckeon DO at 11/25/2024 2:30 PM EDT documented in this encounter [facility] 11-25-2024 Note [facility] 11-24-2024 Emergency department Note Report to Lauren on T3. Pt completely covered in stool. Pt cleaned up. Pt has multiple wounds. Pictures uploaded to chart. I did not participate in the care of this patient. Narendra Lai PA-C 11/24/24 1315 Emergency Department Encounter [facility] EMERGENCY DEPT Patient: Maxwell Collier : 1960 Date of Evaluation: 11/24/2024 ED Supervising Physician: Joe Schulte MD I independently examined and evaluated Maxwell Collier. This will serve as my Supervisory note and shared attestation. I did perform a substantive portion of the visit including all aspects of the Medical Decision Making. I wore appropriate PPE for the entirety of this encounter. In brief, Maxwell Collier is a 64 y.o. that presents to the emergency department with generalized weakness and left leg wound. Patient unable to ambulate. Presents with her . Focused exam: Constitutional: No acute distress HEENT:Head: Atraumatic Eyes: Conjunctivae normal. CV: RRR RESP: CTAB, good respiratory effort, no increased wob GI: Abdomen soft, non-tender, non-distended, no guarding MSK: No gross deformity EXTR: Warm and well perfused, bilateral lower extremity edema SKIN: Left lower extremity wound that is surrounded with stool PSYCH: Appropriate affect, cooperative behavior NEURO: Alert, face symmetric, no slurred speech Brief ED course/MDM: Patient overall appears nontoxic however she is mildly hypotensive. Workup significant for no leukocytosis but ESR and CRP are elevated. Concerning for soft tissue infection and less likely osteomyelitis. Also with WILIAN and hyponatremia. Given vancomycin and Zosyn. Will admit for ED workup treatment. ED Course as of 11/24/24 1824 Keisha November 24, 2024 1527 Complaining of weakness, generalized pain worse in LLE. NAD. Hypotensive, bradycardic. BLE wounds. A/P: 1L NS bolus, blood cultures x2, EKG, trop, ESR, CRP, LA, UA [] 1820 Patient hypotensive with blood pressure of 82/51, heart rate 58, saturating 100% on room air. Will give another 1 L bolus of normal saline. [] ED Course User Index [] David Martin DO Diagnoses as of 11/24/24 182 Wound of left lower extremity, initial encounter Wound infection I personally saw the patient and made/approved the management plan and take responsibility for the patient management. All diagnostic, treatment, and disposition decisions were made by myself in conjunction with the resident. For all further details of the patient's emergency department visit, please see their documentation. (Comment: Please note this report has been produced using speech recognition software and may contain errors related to that system including errors in grammar, punctuation, and spelling, as well as words and phrases that may be inappropriate. If there are any questions or concerns please feel free to contact the dictating provider for clarification.) Joe Schulte MD Acute Care [facility] Joe Schulte MD 11/24/24 1726 Pt arrived from home for failure to thrive. Pt states she has been in so much pain that she has been unable to get out of her chair x1 week. Pt covered in feces and wound to left lower leg. documented in this encounter [facility] 11-24-2024 Note [facility] 11-24-2024 History and physical note Images from the original note were not included. Internal Medicine: MICU Initial History and Physical Name: Maxwell Collier : 1960(64 y.o.) Date: 11/24/24 Attending: Dr. Raines Subjective: Chief Complaint: FTT HPI: 64 y.o. female with PMH HTN, knee OA, DVT on Xarelto who presented to [facility] on 11/24/24 for one week of generalized weakness and fatigue. Patient reports four days ago she was unable to get up from her chair due to weakness, even with assistance from her , and did not get out of chair until calling EMS today. Also reports decreased appetite during this time, only eating bites of toast or sips of water. Reports some dizziness as well. Denies chest pain, shortness of breath, abdominal pain. Patient has extensive LLE wounds. Reports these have been present for a few years and have "opened up" about 4-5x, never fully healing. Her lower extremity edema is also worsening recently. Reports compliance with home medications except for this AM. Denies smoking, alcohol, or drug use. On ED arrival, patient was covered in feces. Initial vital signs showed temp 97.4, HR 59, RR 18, BP 116/90, saturating 100% on room air. Labs notable for Na 125, Cl 95, CO2 13, AG 18, Cr 1.59, Hb 9.1. CK, troponin, lactic acid wnl. ESR 45, CRP 136. XR of left tib/fib showed generalized soft tissue swelling without evidence of gas. Patient was given a total of 4 L fluid in ED but required addition of levophed to maintain MAP >65. Also received single dose of vanc and Zosyn. Will admit to MICU for further workup and management. Past Medical History: Diagnosis Date Blood clot in vein bilateral legs Hypertension Venous ulcer (CMS/HCC) (HCC) left leg Past Surgical History: Procedure Laterality Date EXTREMITY SURGERY lle HYSTERECTOMY SKIN GRAFT Left 2006 Family History Problem Relation Name Age of Onset High Blood Pressure Paternal Grandmother High Blood Pressure Father High Blood Pressure Maternal Grandmother Social History Socioeconomic History Marital status: Spouse name: Not on file Number of children: Not on file Years of education: Not on file Highest education level: Not on file Occupational History Not on file Tobacco Use Smoking status: Former Smokeless tobacco: Former Tobacco comments: Quit smoking: quit 10 years ago Substance and Sexual Activity Alcohol use: Yes Comment: week ends Drug use: No Sexual activity: Not on file Other Topics Concern Not on file Social History Narrative Not on file Social Drivers of Health Financial Resource Strain: Not on file Food Insecurity: Not on file Transportation Needs: Not on file Physical Activity: Not on file Stress: Not on file Social Connections: Not on file Intimate Partner Violence: Not on file Housing Stability: Not on file Allergies Allergen Reactions Lisinopril Swelling Prior to Admission medications Medication Sig Start Date End Date Taking? Authorizing Provider amLODIPine (Norvasc) 10 MG tablet 05/14/22 Historical Provider, carvedilol (Coreg) 6.25 MG tablet 05/01/22 Historical Provider, famotidine (Pepcid) 20 MG tablet Take 20 mg by mouth. 12/02/17 Historical Provider, folic acid (Folvite) 1 MG tablet daily. 05/14/22 Historical Provider, hydroCHLOROthiazide (HYDRODiuril) 25 MG tablet 05/14/22 Historical Provider, potassium chloride ER (Micro-K) 10 MEQ ER capsule Take 1 capsule by mouth daily. 12/28/20 Historical Provider, traMADol (Ultram) 50 MG tablet Take 50 mg by mouth every 12 hours as needed. 09/18/22 Historical Provider, Xarelto 20 MG tablet daily. 05/14/22 Historical Provider, Objective: Oxygen Delivery: VITALS: BP 99/56 (BP Location: Right arm, Patient Position: Lying) Pulse 63 Temp 36.3 C (97.4 F) Resp 16 Ht 1.676 m (5' 6") Wt 127 kg (280 lb) SpO2 98% BMI 45.19 kg/m CURRENT PULSE OXIMETRY: SpO2: 98 % Review of Systems Constitutional: Positive for appetite change and fatigue. Negative for chills and fever. HENT: Negative for congestion, rhinorrhea and sore throat. Respiratory: Negative for cough, shortness of breath and wheezing. Cardiovascular: Positive for leg swelling. Negative for chest pain and palpitations. Gastrointestinal: Positive for diarrhea and nausea. Negative for abdominal pain and vomiting. Genitourinary: Negative for dysuria, frequency and urgency. Skin: Positive for wound. Negative for pallor and rash. Neurological: Positive for dizziness and weakness. Negative for light-headedness and headaches. Constitutional: General Appearance []WDWN [x]Obese []Cachectic []Thin []Ill Eyes: Inspection of Pupils/Irises Pupils round and react: [x]Yes []No Sclera: []Icteric [x]Non-Icteric Inspection of Conjunctiva/Lids Conjunctiva: [x]Injected []Non-Injected Lids: [x]Intact []Lesion Present ENT/Mouth: External Inspection of ears/nose [x] Normal [] Scar/Lesion/Mass Inspection of teeth/lips/gums Dentition: [x][place] Teeth []Dentures Lips/Gums: [x]Intact []Lesion Present Mucosa: [x][place] []Moist [x]Dry Neck: External Appearance Overall Appearance: [x]Normal []Lesion/Mass/Crepitus Present Trachea midline: [x]Yes []No Thyroid [x]Normal []Enlarged []Tender []Mass []Absent Respiratory: Respiratory effort []Labored [x]Non-Labored [] Mechanically-Ventilated Auscultation [x]Clear []Crackles []Wheezes []Rhonchi Cardiovascular: Auscultation Rate: [x]Regular []Irregular []Tachycardia []Bradycardia Rhythm: [x]Regular []Irregular Murmur: []Present [x]Absent Extremities Peripheral Edema: [x]Present []Absent Varicosities: []Present [x]Absent Gastrointestinal: Abdomen Palpation: [x]Soft []Firm []Tender [x]Non-Tender []Distended [x]Non-distended Mass: []Present [x]Absent Bowel Sounds: [x]Present []Absent Hernia: []Present [x]Absent Liver/Spleen: []Hepatosplenomegaly [x]Organomegaly Absent Musculoskeletal: Inspection of Digits and Nails Cyanosis: []Present [x]Absent Clubbing: []Present [x]Absent Ischemia: []Present [x]Absent Infection: []Present [x]Absent Extremities RUSSO Equally: Except ([]RUE []RLE []LUE []LLE) Strength/Tone: Intact and Normal ([x]RUE [x]RLE [x]LUE [x]LLE) Skin: Inspection []Normal []Rash []Lesion []Ulcer Extensive left lower extremity wounds from ankle to knee Palpation [x]Warm []Cool [x]Dry []Clammy []Nodules []Induration []Skin-tightening Cap-Refill: [x] <3 sec [] >3 seconds (delayed) Neurologic: GCS EYE: 4 - Opens spontaneously GCS MOTOR: 6 - Obeys commands for movement GCS VERBAL: 5 - Oriented to person, place, time Total GCS: 15 [x] Sensation grossly intact Psych: Mental Status Alert: [x]Yes [] No Oriented: []x0 []X1 []X2 [x]x3 Mood/Affect [x]Normal []Flat []Agitated []Depressed []Anxious []Calm []Sedated [x]NAD [facility] within last 24 hours- BMP: Recent Labs 11/24/24 1641 NA 126* K 3.5 CL 95* CO2 13* BUN 92* CREATININE 1.59* CALCIUM 8.2* LFTs: Recent Labs 11/24/24 1641 AST 25 ALT 10 PROT 5.9* ALBUMIN 2.2* BILITOT 2.0* ALKPHOS 111 Glucose: Recent Labs 11/24/24 1641 GLUCOSE 116* Procal: No results for input(s): "PROCAL" in the last 72 hours. CBC: Recent Labs 11/24/24 1641 11/24/24 1849 WBC 8.9 -- HGB 9.1* 8.8 HCT 26.7* -- PLT 104* -- MCV 100.0* -- RDW 12.9 -- ABGs: Recent Labs 11/24/24 1849 [id number] None (Room Air) Lactic Acid: Recent Labs 11/24/24 1641 LACTATE 1.7 INR: No results for input(s): "INR" in the last 72 hours. Cardiac Injury Profile: Recent Labs 11/24/24 1849 CKTOTAL 59 Labs in Last 3 months: No results found for: "TSH", "VITD25", "PSA", "INR", "GLUF" Microbiology- Urine Cx: No results found for: URINECX Blood Cx: No results found for: BLOODCX Sputum Cx: No results found for: RESPCULT Gram Stain: Lab Results Component Value Date LABGRAM (A) 11/24/2024 Moderate Polymorphonuclear leukocytes per low power field LABGRAM Moderate Gram positive cocci (A) 11/24/2024 LABGRAM Few Gram positive bacilli (A) 11/24/2024 LABGRAM Few Gram negative bacilli (A) 11/24/2024 PNA PCR: No results found for: HUMANMETAPNE COVID19: No results found for: COVID19 Legionella Ag: No results found for: "LEGIONELLAPN" Strep Ag: No results for input(s): "STREPPNEUMO" in the last 72 hours. Imaging- XR left tib/fib: FINDINGS: No fracture or dislocation of the left tibia or fibula is identified. Generalized soft tissue swelling of the left lower extremity is noted. There is no evidence of soft tissue gas or radiopaque foreign body. Scattered soft tissue calcification is noted. There is a plantar heel spur. Assessment and Plan: Active Problems: There are no active Hospital Problems. Assessment: Hypotension Failure to thrive Generalized weakness Left lower extremity wound Bilateral lower extremity edema Hyponatremia WILIAN HAGMA Anemia Hx hypertension Hx PE on Xarelto Plan: Admit to T3 MICU S/p 4 L fluid bolus in ED Continue levophed Continue broad abx with vanc and Zosyn Infectious workup including blood, wound, and urine cultures Wound care consult General surgery consult Check TTE Hold home antihypertensives Hold Xarelto in case of procedure. Per patient, reports DVT x2, both unprovoked. May be able to discontinue Xarelto permanently. Daily CBC, BMP Miconazole powder Consult to high school social studies tutor Tylenol + PRN oxycodone for pain control GI Prophylaxis: not indicated DVT Prophylaxis: hold for now in case of procedure BMI Classification: Body mass index is 45.19 kg/m . Disposition: ICU Cosigned by Miah Raines MD at 11/25/2024 5:39 AM EDT Associated attestation - Miah Raines MD - 11/25/2024 5:39 AM EDT I have personally performed a [id number] diagnostic evaluation on this patient on date of service 11/24/24. History, labs, imaging studies, and electronic medical record have been reviewed by me. This note documented by the [x]housekeeper manager []NANCY reflects my history, exam, and medical decision making. I have reviewed and agree with the care plan. Changes were made in the orders as necessary. ROS documentation was reviewed and negative unless otherwise stated in HPI. Additional pertinent interval history, ROS, and physical exam findings: 64 yo CF PMHx HTN, knee OA, DVT on Xarelto who presented to [facility] on 11/24/24 for one week of generalized weakness and fatigue. Patient reports four days ago she was unable to get up from her chair due to weakness, even with assistance from her , and did not get out of chair until calling EMS today. Also reports decreased appetite during this time, only eating bites of toast or sips of water. Reports some dizziness as well. Denies chest pain, shortness of breath, abdominal pain. Patient has extensive LLE wounds. Reports these have been present for a few years and have "opened up" about 4-5x, never fully healing. Her lower extremity edema is also worsening recently. ICU consulted for hypotension requiring levophed. Assessment: Hypovolemic shock Weakness Left leg open wound infection WILIAN Hyponatremia Elevated bilirubin Macrocytic Anemia Chronic Thrombocytopenia Hx of DVT provoked Hx of acute on chronic bilateral edema Stage III decubitus ulcer Malnutrition -Hx of HTN Plan: - Admit ICU, s/p 3L of IVF still requiring 4-5 levophed, blood cultures, wound culture and broad spectrum antibiotics. Check CK. Surgical consult - Wound care - Checking ua and renal ultrasound Suspect secondary to hypovolemia - Hypoglycemic protocol - Abdominal Ultrasound - Peripheral smear. Last Plt 135 in 2022 now at 104 - Cont warfarin - checking echo, patient mentions swelling worsening in the past month. States this are not her normal legs - Hold all antihypertensive meds DVT px: FULL anticoagulation GI px: None needed Total critical care time for this patient with life-threatening unstable organ failure, including direct patient contact, management of life support systems, review of data including imaging and labs, and discussions with other team members and physicians at least 35 min so far today, excluding procedures. documented in this encounter [facility] 10-02-2024 Telephone encounter Note S: Patient spoke with CAC nurse regarding cancel appointment B: Onset of symptoms/concern 10/02/24 A: Patient states they need to cancel 10/03/24 appointment. R: Patient understands care advice that appointment will be canceled per request and to call back when office open to reschedule. No further needs at this time. Patient instructed to call back with new or worsening symptoms. Reason for Disposition [1] Follow-up call to recent contact AND [2] information only call, no triage required Protocols used: Information Only Call - No [id number] [facility] 10-02-2024 Miscellaneous Notes S: Patient spoke with CAC nurse regarding cancel appointment B: Onset of symptoms/concern 10/02/24 A: Patient states they need to cancel 10/03/24 appointment. R: Patient understands care advice that appointment will be canceled per request and to call back when office open to reschedule. No further needs at this time. Patient instructed to call back with new or worsening symptoms. Reason for Disposition [1] Follow-up call to recent contact AND [2] information only call, no triage required Protocols used: Information Only Call - No [id number] documented in this encounter [facility] 11-12-2022 Telephone encounter Note Surgery canceled [facility] 11-12-2022 Miscellaneous Notes Surgery canceled Maxwell has a wound on her right foot and where she had a skin graft on the left leg is starting to peel. She is going to call her tax specialist to be seen. She would like to postpone her surgery at this time. She states she will call when she is ready to reschedule. No Auth needed for medical mutual. Alyssa spoke with the patient about PAT information. PAT: TBD Sx: 11/17 @ 830 Dx: m17.11 CPT: 63943,53288 Case #: [id number] Procedure: Right Total Knee Arthroplasty Time: 1 hour Diagnosis: 1. Primary osteoarthritis of right knee Blood: none Anesthesia: spinal/adductor canal block DVT proph: Xeralto Injection: Toradol Return to Office: No Repeat Xrays: No Implants: depuy attune with s plus tibia, velys robot documented in this encounter [facility] 11-11-2022 Telephone encounter Note Maxwell has a wound on her right foot and where she had a skin graft on the left leg is starting to peel. She is going to call her tax specialist to be seen. She would like to postpone her surgery at this time. She states she will call when she is ready to reschedule. [facility] 10-29-2022 Telephone encounter Note No Auth needed for medical mutual. Alysas spoke with the patient about PAT information. [facility] 10-29-2022 Miscellaneous Notes No Auth needed for medical mutual. Alyssa spoke with the patient about PAT information. PAT: TBD Sx: 11/17 @ 830 Dx: m17.11 CPT: 45299,80776 Case #: [id number] Procedure: Right Total Knee Arthroplasty Time: 1 hour Diagnosis: 1. Primary osteoarthritis of right knee Blood: none Anesthesia: spinal/adductor canal block DVT proph: Xeralto Injection: Toradol Return to Office: No Repeat Xrays: No Implants: depuy attune with s plus tibia, velys robot documented in this encounter [facility] 10-27-2022 Telephone encounter Note PAT: LAITH Sx: 11/17 @ 830 Dx: m17.11 CPT: 46179,59436 Case #: [id number] Procedure: Right Total Knee Arthroplasty Time: 1 hour Diagnosis: 1. Primary osteoarthritis of right knee Blood: none Anesthesia: spinal/adductor canal block DVT proph: Xeralto Injection: Toradol Return to Office: No Repeat Xrays: No Implants: depuy attune with s plus tibia, velys robot [facility] 10-16-2022 History of Present illness Narrative Images from the original note were not included. [facility] [address] [place] [phone] Dept: [phone] Dept 10/16/2022 Chief Complaint Patient presents with New Patient Right knee pain Subjective: Maxwell is a 62 y.o. female who presents for evaluation of the Right knee. Symptoms began gradually several years ago. Maxwell describes the symptoms as aching, stabbing, locking and calf cramping. Symptoms improve with rest, medication: Tramadol used and beneficial. The symptoms are exacerbated by activity, stair climbing. The knee has given out or felt unstable. The patient can bend and straighten the knee fully. The patient is able to walk 0 blocks and is able to use stairs. She has a point where she is having trouble driving a car or using her right leg due to severe knee pain Non-operative treatment to date has consisted of: NSAIDS: No Stoker Installation Mechanic Brace: No Cortisone injections: Yes, 07/02/2022, helped for about 1 month Viscosupplementation: No Assistive Devices: straight cane Therapy: No Narcotics: Yes Review of Systems Constitutional: Negative for activity change. HENT: Negative for congestion. Cardiovascular: Negative for leg swelling. Musculoskeletal: Positive for arthralgias, gait problem and joint swelling. Skin: Negative for wound. Neurological: Negative for weakness. Past Medical History: Diagnosis Date Blood clot in vein Hypertension Past Surgical History: Procedure Laterality Date EXTREMITY SURGERY HYSTERECTOMY SKIN GRAFT Left 2006 Social History Socioeconomic History Marital status: Spouse name: Not on file Number of children: Not on file Years of education: Not on file Highest education level: Not on file Occupational History Not on file Tobacco Use Smoking status: Former Smokeless tobacco: Former Tobacco comments: Quit smoking: quit 10 years ago Substance and Sexual Activity Alcohol use: Yes Comment: daily Drug use: No Sexual activity: Not on file Other Topics Concern Not on file Social History Narrative Not on file Social Determinants of Health Financial Resource Strain: Not on file Food Insecurity: Not on file Transportation Needs: Not on file Physical Activity: Not on file Stress: Not on file Social Connections: Not on file Intimate Partner Violence: Not on file Housing Stability: Not on file Family History Problem Relation Name Age of Onset High Blood Pressure Paternal Grandmother High Blood Pressure Father High Blood Pressure Maternal Grandmother Allergies Allergen Reactions Lisinopril Swelling Objective: Ht 5' 6" (1.676 m) Wt 270 lb (122 kg) BMI 43.58 kg/m Pt is a WD/WN female in no acute distress. Maxwell appears stated age. Mood and affect are normal. Maxwell is A&O x 3. Gait: antalgic. Bilateral hip range of motion is not painful. RIGHT KNEE: Inspection shows skin is warm, dry and intact. Alignment is significant varus. ROM shows extension is 0, flexion 118. The knee is stable to varus/valgus stress <6 degrees. Additional findings include crepitus, medial joint line tenderness, and lateral joint line tenderness. Pedal pulses are 2+ (normal), +PF/DF/EHL XRAYS: Reviewed from outside facility Indication: Right knee pain Exam Ordered: Radiographs of the Right knee include a standing anteroposterior view, a standing posterioanterior view, a lateral view in full flexion, and a sunrise view Details of Examination: Todays exam shows evidence of joint space narrowing, bone on bone, osteophyte formation, and subchondral sclerosis, all consistent with degenerative arthritis of the knee. No other significant findings are noted Impression: Moderate- severe Degenerative Arthritis, Right knee Assessment 1. Primary osteoarthritis of right knee This treatment will consist of... ~ Activity modification ~ Surgery RTKA This patient has significant symptoms in their Right knee that are affecting their quality of life and daily activities. They have tried non-operative treatment including analgesics, an exercise program, and activity modification, but the symptoms have persisted. We believe they make a good candidate for knee arthroplasty. Her bmi is slightly over 45 however she feels debilitated due to her knee. She understand she is high risk and wants to proceed with surgery The risks and benefits of knee arthroplasty have been discussed with the patient which include, but are not limited to, infections (including severe sequelae), potential component failure, fracture, DVT, pulmonary embolus, nerve palsy, poor range of motion, the possibility of bone grafting, persistent pain, wound healing complications, transfusions and . Pre-operative planning will include the following: A pre-surgical evaluation by an epic cupid analyst will be arranged. will order the pre-operative laboratory tests as well as EKG which will be checked by the epic cupid analyst. will make arrangements with the operating room for proper time and staffing. We are going to make arrangements for the patient to attend the education classes will make Social Service arrangements for the patient, to include physical therapy We will need to see the patient at 4 weeks post op with xrays of the knee Procedure: Right Total Knee Arthroplasty Time: 1 hour Diagnosis: 1. Primary osteoarthritis of right knee Blood: none Anesthesia: spinal/adductor canal block DVT proph: Xeralto Injection: Toradol Return to Office: No Repeat Xrays: No Implants: depuy attune with s plus tibia, velys robot Other: The risks, benefits, and alternatives to all of the treatment options were thoroughly explained. Patient will call us with any questions or concerns regarding this plan or if any significant issues arise. Electronically signed by Shyam Kirkland M.D. 10/16/2022 at 1:33 PM. Dictated using [employer] Version 2.4 Proof read however unrecognized voice recognition errors may have occurred documented in this encounter [facility] Evaluation note Diagnosis Primary osteoarthritis of right knee [facility] Wound of left lower extremity, initial encounter- Primary Wound of left lower extremity, initial encounter Wound infection Posttraumatic wound infection not elsewhere classified Lower extremity edema Edema [facility] noteNo assessment information availableWK[facility] Work Phone: Reason for referral (narrative)No reason for referral information availableWKettering Health Behavioral [facility] Work Phone: Summary Purpose Family History No Family History Records FoundNo Family History Records FoundNo Family History Records FoundNo Family History Records FoundNo Family History Records FoundNo Family History Records Found Advance Directives No Advanced Directives Records FoundLatest Code Status on File Code Status Date Activated Date Inactivated Comments Full Code 12/02/2017 5:15 AM 12/02/2017 2:45 PM Date Activated Date Inactivated Comments 11/24/2024 10:12 PM 12/03/2024 2:47 PM Chief Complaint and Reason for Visit Chief Complaint Admit Date LAB WORK December 05, 2024 5:00a m LABWORK December 07, 2024 5:00a m LABWORK December 19, 2024 5:00a m [facility] LAB WORK January 23, 2025 6:0 0am Additional Source Comments INFORMATION SOURCE (unrecogn ized section and content) DATE CREATED AUTHOR 01/06/2018 [facility] DATE CREATED AUTHOR AUTHOR'S ORGANIZ ATION 01/11/2018 [facility] DATE CREATED AUTHOR AUTHOR'S ORGANIZ ATION 04/25/2022 [facility] DATE CREATED AUTHOR AUTHOR'S ORGANIZ ATION [facility]20[facility] DATE CREATED AUTHOR AUTHOR'S ORGANIZ ATION 02/19/2025 [facility] Reason for Visit (unrecogniz ed section and content) Reason Comments New Patient Right knee pain Reason Onset Date Comments Surgery Scheduling 10/27/2022 RTKA 11/17 Reason Onset Date Comments Other 10/02/2024 Reason Comments Failure To Thrive Pt arrived from home for failure to thrive. Pt states she has been in so much pain that she has been unable to get out of her chair x1 week. Specialty Diagnoses / Procedures Referred By Cassidy bland Referred To Contact Diagnoses Lower extremity edema Wound infection Wound of left lower extremity, initial encounter Procedures . Miah Raines MD [address] [place] [address] Phone: tel: fax: [facility] Medical Intensive Care Unit MICU T[address] [place] [address] Phone: tel: Referral ID Status Reason Start Date Expiration Date Visits Re quested Visits Authorized [id number] 1 1 Care Teams (unrecognized sec tion and content) Bone Process Operator Relationship Specialty Start Date End Date Aishwarya Rooney MD [address] [facility] [address] [place] [phone] PCP - General 03/25/17 Bone Process Operator Relationship Specialty Start Date End Date Aishwarya Rooney MD [address] [facility] [address] [place] [phone] PCP - General 03/25/17 Bone Process Operator Relationship Specialty Start Date End Date Aishwarya Rooney MD [address] [facility] [address] [place] [phone] PCP - General 03/25/17 Erika Soto, ASHLEY Nurse Navigator Orthopedic Surgery 10/29/2202/17/23 Bone Process Operator Relationship Specialty Start Date End Date Aishwarya Rooney MD [address] [facility] [address] [place] [phone] PCP - General 03/25/17 Erika Soto, RN Nurse Navigator Orthopedic Surgery 10/29/2202/17/23 Bone Process Operator Relationship Specialty Start Date End Date Aishwarya Rooney MD [facility] [address] [place] [phone] PCP - General 03/25/17 Bone Process Operator Relationship Specialty Start Date End Date Priscilla Llanes MD [facility] [place] [phone] PCP - General Internal Medicine 11/24/24 Team Status: Active Member Role/Relationship Status Dates Juan R PRECIADO Attending Provider Active Sta rt: December 05, 2024 Team Status: Active Member Role/Relationship Status Dates Juan R PRECIADO Attending Provider Active Sta rt: December 07, 2024 Team Status: Active Member Role/Relationship Status Dates Abraham PRECIADO Attending Provider Active Star t: December 19, 2024 Team Status: Inactive Member Role/Relationship Status Dates Juan R PRECIADO Attending Provider Active Sta rt: January 23, 2025 End: January 23, 2025 Juan R PRECIADO Referring Provider Active Sta rt: January 23, 2025 End: January 23, 2025 Team Status: Inactive Member Role/Relationship Status Dates Abraham PRECIADO Attending Provider Active Star t: December 19, 2024 End: December 19, 2024 Scheduled Active and Recently Administ ered Medications (unrecognized section and content) Medication Order 12/01/2024 12/02/2024 12/03/2024 buPROPion SR (Wellbutrin SR) 12 hr tablet 100 mg 100 mg, Oral, 2 times daily, First dose on Thu11/29/24 at 0900, Do not crush, chew, or split. 0934 (Given - Provider: Mayela Plascencia RN)2147 (Given - Provider: Consuelo Colbert, ASHLEY) 0909 (Given - Provider: Bebeto Hernandez, ASHLEY)2040 (Given - Provider: Lety Grijalva, ASHLEY) 0829 (Given - Provider: Ariel Jane, ASHLEY) chlorhexidine (Hibiclens) 4 % solution Topical, Daily, First dose on Thu11/26/24 at 1400 1152 (Given - Provider: Jessy Chan, RN) 1346 (Given - Provider: Bebeto Hernandez, ASHLEY) 1400 (Canceled Entry - Provider: Automatic Discharge Provider - Comment: Automatically canceled at discontinue of medication order) collagenase 250 UNIT/GM ointment Topical, Daily, First dose on Thu11/25/24 at 1030, Nursing staff to perform dressing change: Left Proximal lower leg: Venous ulcer (unknown) - Clean with NS, apply Santyl follow by adaptic then cover with ABD, Kerlix daily Left distal lower leg: Venous ulcer (unknown) - Clean with NS, apply Santyl follow by adaptic then cover with ABD, Kerlix daily 0936 (Given - Provider: Mayela Plascencia RN) 1000 (Given - Provider: Bebeto Hernandez RN) 0831 (Given - Provider: Ariel Jane RN) enoxaparin (Lovenox) syringe 40 mg 40 mg, SubCUTAneous, Every 24 hours, First dose on Thu11/25/24 at 1530, Indication of Use: Prophylaxis-DVT/PE, On hold since Thu11/27/2024 at 1534 until manually unheld 1530 (Dose Auto Held - Provider: Sonia Santos APRN - SHIVAM) 1530 (Dose Auto Held - Provider: Sonia Santos APRN - SOFTWARE SALES CONSULTANT) 1442 (Unheld by provider - Provider: Automatic Discharge Provider) folic acid (Folvite) tablet 1 mg 1 mg, Oral, Daily, First dose on Thu11/25/24 at 0900 0932 (Given - Provider: Mayela Plascencia RN) 0908 (Given - Provider: Bebeto Hernandez RN) 0829 (Given - Provider: Ariel Jane RN) Hydrocortisone Sod Suc (PF) (Solu-CORTEF) injection 50 mg (COMPLETED) 50 mg, IntraVENous, Daily, First dose (after last modification) on Thu12/01/24 at 0900, For 2 doses 0932 (Given - Provider: Mayela Plascencia RN) 0908 (Given - Provider: Bebeto Hernandez RN) miconazole (Micotin) 2 % powder Topical, 2 times daily, First dose on Thu11/24/24 at 2300, Nursing staff to perform dressing change: Left abdomen folds: Fungal dermatitis - Clean with soap and water, dry well, apply Miconazole powder then leave ARMY OFFICER BID Rosaura-area: Fungal dermatitis - Clean with soap and water, dry well, apply Miconazole powder then leave ARMY OFFICER BID Right and Left breast: Fungal dermatitis - Clean with soap and water, dry well, apply Miconazole powder then leave PARVEEN BID 0935 (Given - Provider: Mayela Plascencia RN)2148 (Given - Provider: Consuelo Colbert RN) 0909 (Given - Provider: Bebeto Hernandez RN)204 (Given - Provider: Lety Grijalva RN) 0831 (Given - Provider: Ariel Jane RN) pantoprazole (ProtoNix) 40 mg in sodium chloride (PF) 0.9 % 10 mL injection(Linked Group 1) 40 mg, IntraVENous, Administer over 2 Minutes, Daily, First dose on 11/26/24 at 0900, Give only if unable to tolerate po. 0933 (See Alternative - Provider: Mayela Plascencia RN) 0908 (See Alternative - Provider: Bebeto Hernandez, ASHLEY) 0829 (See Alternative - Provider: Ariel Jane, ASHLEY) pantoprazole (ProtoNix) EC tablet 40 mg(Linked Group 1) 40 mg, Oral, Daily, First dose on 11/26/24 at 0900, Do not crush, chew, or split. 0933 (Given - Provider: Mayela Plascencia RN) 0908 (Given - Provider: Bebeto Hernandez, ASHLEY) 0829 (Given - Provider: Ariel Jane, ASHLEY) Petrolatum ointment Topical, Daily, First dose on 11/26/24 at 0600, Nursing staff to perform dressing change: Right lower leg: Venous stasis dermatitis - Clean with soap and water, apply Aquaphor then leave ARMY OFFICER daily 1110 (Not Given - Provider: Jessy Chan RN - Reason: Patient not available) 0503 (Given - Provider: Consuelo Colbert RN) 0833 (Not Given - Provider: Ariel Jane RN - Reason: Other - Comment: duplicate) Petrolatum ointment Topical, 2 times daily, First dose on Thu11/28/24 at 1500, Apply to arms and legs . 1029 (Given - Provider: Jessy Chan RN)1844 (Given - Provider: Jessy Chan RN) 0642 (Given - Provider: Consuelo Colbert, ASHLEY)1452 (Given - Provider: Bebeto Hernandez, ASHLEY) 0832 (Given - Provider: Ariel Jane, ASHLEY - Comment: late) phosphorus (K Phos Neutral) tablet 2 tablet (COMPLETED) 2 tablet (500 mg), Oral, Once, On Thu12/02/24 at 0930, For 1 dose, Each tablet contains 250 mg phosphorus, 298 mg sodium, 1.1 mEq potassium. 0955 (Given - Provider: Bebeto Hernandez RN) phosphorus (K Phos Neutral) tablet 2 tablet (COMPLETED) 2 tablet (500 mg), Oral, Once, On 12/03/24 at 0945, For 1 dose, Each tablet contains 250 mg phosphorus, 298 mg sodium, 1.1 mEq potassium. 1015 (Given - Provider: Ariel Jane RN) piperacillin-tazobact am (Zosyn) 4,500 mg in sodium chloride 0.9 % 100 mL IVPB Mini-Bag Plus (COMPLETED) 4,500 mg, IntraVENous, at 33.3 mL/hr, Administer over 3 Hours, Every 6 hours, First dose on Thu11/25/24 at 0000, For 28 doses, Mini-Bag Plus bag, Suspected Indication (Select all that apply): Skin and Soft Tissue Infection 0309 (Stopped - Provider: Harleen Bowen RN)0617 (New Bag - Provider: Harleen Bowen RN)1049 (Stopped - Provider: Jessy Chan RN)1110 (New Bag - Provider: Jessy Chan RN)1643 (Stopped - Provider: Jessy Chan RN)1839 (New Bag - Provider: Jessy Chan RN)2148 (Stopped - Provider: Consuelo Colbert RN) potassium chloride (Klor-Con) packet 40 mEq (COMPLETED) 40 mEq, Oral, Once, On Keisha 12/01/24 at 1845, For 1 dose, Dissolve each packet in 4 ounces of water = 5 mEq per 1 oz fluid., Indications: Hypokalemia 1850 (Given - Provider: Jessy Chan RN) potassium chloride (Klor-Con) packet 40 mEq (COMPLETED) 40 mEq, Oral, Once, On Thu12/02/24 at 0930, For 1 dose, Dissolve each packet in 4 ounces of water = 5 mEq per 1 oz fluid., Indications: Hypokalemia 0955 (Given - Provider: Bebeto Hernandez RN) potassium chloride (Klor-Con) packet 40 mEq (COMPLETED) 40 mEq, Oral, Once, On 12/03/24 at 0945, For 1 dose, Dissolve each packet in 4 ounces of water = 5 mEq per 1 oz fluid., Indications: Hypokalemia 1015 (Given - Provider: Ariel Jane RN) sodium chloride 0.9% (NS) flush 5-40 mL 5-40 mL, IntraCATHeter, Every 8 hours, First dose on Thu11/25/24 at 1615, For Line Patency: Peripheral IV = 5 mL; Midline or Central Line = 10 mL/lumen. If following IV push medication, administer flush at same rate as the IV push. Flush volume is determined by type of infusion therapy being given. For non-viscous solutions use: Peripheral IV = 5 mL Midline or Central Line = 10 mL/lumen For viscous solutions (i.e. blood components, parenteral nutrition, contrast media, or after obtaining blood sample) use: Peripheral IV = 10 mL Midline or Central Line = 20 mL/lumen 0936 (Given - Provider: Mayela Plascencia RN)1845 (Given - Provider: Jessy Chan, ASHLEY)2330 (Not Given - Provider: Consuelo Colbert RN - Reason: IV Fluids Infusing) 0910 (Given - Provider: Bebeto Hernandez RN)1623 (Given - Provider: Bebeto Hernandez RN)2311 (Given - Provider: Lety Grijalva RN) 0831 (Given - Provider: Ariel Jane RN) stomahesive in petrolatum (ET Mix) Topical, Every 8 hours, First dose on Thu11/25/24 at 1030, Nursing staff to perform dressing change: Bilateral buttocks: Pressrue Injury (unstageble) - Clean with soap and water, apply ET mix then leave PARVEEN TID and PRN Left hip: Pressure Injury (Stage 3) - Clean with soap and water, apply ET mix then leave PARVEEN TID and PRN 0320 (Given - Provider: Harleen Bowen RN)0935 (Given - Provider: Mayela Plascencia RN)1108 (Given - Provider: Jessy Chan, ASHLEY)1845 (Given - Provider: Jessy Chan RN) 0247 (Not Given - Provider: Consuelo Colbert RN - Reason: Patient/family refused)1000 (Given - Provider: Bebeto Hernandez RN)1733 (Given - Provider: Bebeto Hernandez RN) 0137 (Not Given - Provider: Lety Grijalva RN - Reason: Patient/family refused)1017 (Given - Provider: Ariel Jane RN) PRN Medication Order 12/01/2024 12/02/202412/03/2024 acetaminophen (Tylenol) tablet 650 mg 650 mg, Oral, Every 4 hours PRN, mild pain (1-3), Starting on Thu11/30/24 at 1245, Maximum dose of acetaminophen is 4000 mg from all sources in 24 hours. 1105 (Given - Provider: Jessy Chan, RN)1644 (Given - Provider: Jessy Chan, RN) 0444 (Given - Provider: Consuelo Colbert, RN)2039 (Given - Provider: Lety Grijalva RN) 1017 (Given - Provider: Ariel Jane RN) dextrose 5 % infusion 100 mL/hr, IntraVENous, PRN, Blood sugar less than 70mg/dL, Starting on Thu11/25/24 at 0149, Start infusion following administration of dextrose 50% or glucagon. dextrose 50 % solution 12.5 g 12.5 g, IntraVENous, PRN, low blood sugar, Blood glucose less than 70 mg/dL and patient NOT ALERT or NPO., Starting on Thu11/25/24 at 0149, If patient does not respond within 5 minutes, repeat dose x1. Start D5W at 100 mL/hour until ordering provider can be reached. Repeat blood glucose in 15 minutes. If blood glucose is less than 70 mg/dL, repeat treatment and recheck blood glucose in 15 minutes x2. If using Glucostabilizer, dose as instructed per system. glucagon (human recombinant) injection 1 mg 1 mg, IntraMUSCular, PRN, low blood sugar, Blood glucose less than 70 mg/dL and patient NOT ALERT or NPO and does not have IV access., Starting on Thu11/25/24 at 0149, After administration, attempt intravenous access and start D5W at 100 mL/hr. Repeat blood glucose in 15 minutes x2 and notify provider. glucose oral gel 15 g 15 g, Oral, As needed, low blood sugar, Starting on Thu11/25/24 at 0149, If blood glucose less than 50 mg/dL and patient ALERT and NOT NPO, give 2 tubes glucose gel. If blood glucose less than 70 mg/dL and patient ALERT and NOT NPO, give 1 tube glucose gel. Repeat blood glucose in 15 minutes. If blood glucose is less than 70 mg/dL, repeat treatment and recheck blood glucose in 15 minutes x2 and notify provider. naloxone (Narcan) injection 0.4 mg 0.4 mg, IntraVENous, Every 5 min PRN, opioid reversal, respiratory depression, over sedation, RR <10, pinpoint pupils, Starting on Keisha 11/24/24 at 2212, +++notify personal lines agent provider if used+++ ondansetron (Zofran) injection 4 mg(Linked Group 2) 4 mg, IntraVENous, Every 6 hours PRN, nausea, vomiting, Starting on Keisha 11/24/24 at 2212, 1st Line. Give IV if patient is unable to take orally. If inadequate response within 60 minutes, proceed to next-line agent or contact provider if no further options ordered. ondansetron ODT (Zofran-ODT) disintegrating tablet 4 mg(Linked Group 2) 4 mg, Oral, Every 8 hours PRN, nausea, vomiting, Starting on Keisha 11/24/24 at 2212, 1st Line. If inadequate response within 60 minutes, proceed to next-line agent or contact provider if no further options ordered. Patient should allow tablet to dissolve on tongue. Do not remove from blister pack until just before administering. oxyCODONE (Roxicodone) immediate release tablet 10 mg(Linked Group 3) 10 mg, Oral, Every 6 hours PRN, severe pain (7-10), Starting on Keisha 11/24/24 at 2325 1105 (Given - Provider: Jessy Chan RN)1644 (Given - Provider: Jessy Chan RN) 1533 (Given - Provider: Whitney Pradhan, ASHLEY)2313 (Given - Provider: Lety Grijalva, RN) oxyCODONE (Roxicodone) immediate release tablet 5 mg(Linked Group 3) 5 mg, Oral, Every 6 hours PRN, moderate pain (4-6), Starting on Keisha 11/24/24 at 2325 1105 (See Alternative - Provider: Jessy Chan RN)1644 (See Alternative - Provider: Jessy Chan RN) 1533 (See Alternative - Provider: Whitney Pradhan RN)2313 (See Alternative - Provider: Lety Grijalva, RN) polyethylene glycol (PEG) 3350 (Miralax) packet 17 g 17 g, Oral, Daily PRN, constipation, Starting on Keisha 11/24/24 at 2212, Indications: Constipation sodium chloride 0.9% (NS) flush 5-40 mL 5-40 mL, IntraVENous, PRN, line care, before and after blood draws, infusion, or medication administration, Starting on Thu11/25/24 at 1604, For Line Patency: Peripheral IV = 5 mL; Midline or Central Line = 10 mL/lumen. If following IV push medication, administer flush at same rate as the IV push. Flush volume is determined by type of infusion therapy being given. For non-viscous solutions use: Peripheral IV = 5 mL Midline or Central Line = 10 mL/lumen For viscous solutions (i.e. blood components, parenteral nutrition, contrast media, or after obtaining blood sample) use: Peripheral IV = 10 mL Midline or Central Line = 20 mL/lumen stomahesive in petrolatum (ET Mix) Topical, PRN, dry skin, Starting on Thu11/24/24 at 2243, Nursing staff to perform dressing change: Right and Left breast: Fungal dermatitis - Clean with soap and water, dry well, apply Miconazole powder then leave PARVEEN BID Bilateral buttocks: Pressrue Injury (unstageble) - Clean with soap and water, apply ET mix then leave [employer] TID and PRN Left hip: Pressure Injury (Stage 3) - Clean with soap and water, apply ET mix then leave [employer] TID and PRN Linked Groups Order Group 1: pantoprazole (ProtoNix) EC tablet 40 mgJump to med 40 mg, Oral, Daily, First dose on 11/26/24 at 0900, Do not crush, chew, or split. Or pantoprazole (ProtoNix) 40 mg in sodium chloride (PF) 0.9 % 10 mL injectionJump to med 40 mg, IntraVENous, Administer over 2 Minutes, Daily, First dose on 11/26/24 at 0900, Give only if unable to tolerate po. Group 2: ondansetron ODT (Zofran-ODT) disintegrating tablet 4 mgJump to med 4 mg, Oral, Every 8 hours PRN, nausea, vomiting, Starting on Keisha 11/24/24 at 2212, 1st Line. If inadequate response within 60 minutes, proceed to next-line agent or contact provider if no further options ordered. Patient should allow tablet to dissolve on tongue. Do not remove from blister pack until just before administering. Or ondansetron (Zofran) injection 4 mgJump to med 4 mg, IntraVENous, Every 6 hours PRN, nausea, vomiting, Starting on Keisha 11/24/24 at 2212, 1st Line. Give IV if patient is unable to take orally. If inadequate response within 60 minutes, proceed to next-line agent or contact provider if no further options ordered. Group 3: oxyCODONE (Roxicodone) immediate release tablet 5 mgJump to med 5 mg, Oral, Every 6 hours PRN, moderate pain (4-6), Starting on Keisha 11/24/24 at 2325 Or oxyCODONE (Roxicodone) immediate release tablet 10 mgJump to med 10 mg, Oral, Every 6 hours PRN, severe pain (7-10), Starting on Keisha 11/24/24 at 2325 Goals (unrecognized section and content) Goals may be documented in a n alternate sectionGoals may be documented in an alternate section FOR RECORDS PERTAINING TO PATIENTS WHO ARE OR HAVE BEEN ENROLLED IN A CHEMICAL DEPENDENCY/SUBSTANCEABUSE PROGRAM, SOME INFORMATION MAY BE OMITTED. This clinical summary was aggregated from multiple sources. Caution should be exercised in using it in the provision of clinical care. This summary normalizes information from multiple sources, and as a consequence, information in this document may materially change the coding, format and clinical context of patient data. In addition, data may be omitted in some cases. CLINICAL DECISIONS SHOULD BE BASED ON THE PRIMARY CLINICAL RECORDS. [employer] [facility]. provides no warranty or guarantee of the accuracy or completeness of information in this document.
[2025-02-27 10:36] LABS: Hematocrit 35.1 % (37-47); Hemoglobin 11.1 g/dL (12.0-15.0); Mean Corp Hgb Conc 31.6 g/dL (32-36); Mean Corpuscular Volume 92.1 fL (81-99); Mean Platelet Vol. 10.9 fl (6.2-12.0); Platelet Count 171 K/mm3 (150-450); RBC Distribution Width CV 13.6 % (11.6-14.6); RBC Distribution Width SD 45.6 fl (35.1-43.9); Red Blood Count 3.81 M/mm3 (4.2-5.4); White Blood Count 5.3 K/mm3 (4.4-11.0)
[2025-02-27 11:03] LABS: Anion Gap 12 (5-15); BUN 14 mg/dL (4-19); BUN/Creat Ratio 24.6 RATIO (10-20); Calcium,Total 10.0 mg/dL (7.6-11.0); Carbon Dioxide 20.7 mmol/L (21.0-32.0); Chloride 110 mmol/L (98-108); Glucose 87 mg/dL (70-99); Potassium 3.4 mmol/L (3.3-5.1)
== END ==
LOC: OLS.ACW100 04:00
PROVIDERS: Referring Provider Internal Medicine; Visit Provider Internal Medicine
DX: I87.312 Chronic venous hypertension (idiopathic) with ulcer of left lower extremity (principal); R53.1 Weakness
CPT/HCPCS: 36415; 80048; 85027

== ENCOUNTER → 2025-03-13 05:00 | Outpatient (REF) | payer OTHER, SELFPAY ==
[2025-03-13 08:48] LABS: Hematocrit 32.4 % (37-47); Hemoglobin 10.5 g/dL (12.0-15.0); Mean Corp Hgb Conc 32.4 g/dL (32-36); Mean Corpuscular Volume 90.8 fL (81-99); Mean Platelet Vol. 10.4 fl (6.2-12.0); Platelet Count 148 K/mm3 (150-450); RBC Distribution Width CV 13.7 % (11.6-14.6); RBC Distribution Width SD 45.3 fl (35.1-43.9); Red Blood Count 3.57 M/mm3 (4.2-5.4); White Blood Count 4.8 K/mm3 (4.4-11.0)
[2025-03-13 09:40] LABS: Anion Gap 12 (5-15); BUN 11 mg/dL (4-19); BUN/Creat Ratio 21.2 RATIO (10-20); Calcium,Total 9.6 mg/dL (7.6-11.0); Carbon Dioxide 20.9 mmol/L (21.0-32.0); Chloride 110 mmol/L (98-108); Glucose 78 mg/dL (70-99); Potassium 3.2 mmol/L (3.3-5.1)
== END ==
LOC: OLS.ACW100 05:00
PROVIDERS: Visit Provider Family Medicine
DX: I87.312 Chronic venous hypertension (idiopathic) with ulcer of left lower extremity (principal); A41.9 Sepsis, unspecified organism; R27.9 Unspecified lack of coordination; R53.1 Weakness; I82.431 Acute embolism and thrombosis of right popliteal vein
CPT/HCPCS: 36415; 80048; 85027

== ENCOUNTER → 2025-03-22 | Outpatient (REF) | payer OTHER, SELFPAY ==
--- OUTSIDE RECORDS SUMMARY | 2025-03-22 04:20 | XMS RPT_ITS | CCD ---
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 Name Role Phone PROVIDER, UNKNOWN Unavailable Unavailable [...] Mills Referring Provider Unavailab Juan R Fernandez Referring Unavailable Juan R Queen Attending Unavailable Juan R Queen Attending Unavailable Juan R Queen Referring Unavailable Abraham Almaraz Attending Unavailable Juan R Queen Attending Unavailable Juan R Queen Attending Unavailable Abraham Almaraz Attending Unavailable Allergies Allergy Classification Reported Allergen(s) Allergy Type Date of Onset Reaction(s) Facility Angiotensin Converting Enzyme (SCOTTY) Inhibitors (1 source) Lisinopril Drug Allergy 12-02-2017 [facility] (12 sources) Lisinopril Propensity to adverse reactions 12-02-2017 [facility] Medications Current Medications Medication Drug Class(es) Dates [...] every eight hours 20 ml albumin human, fpc 250 mg/ml injection (6 sources) Human Serum Albumin Start: 11-30-2024 End: 11-30-2024 Start: 11-25-2024 End: 11-25-2024 amLODIPine 10 mg oral tablet (13 sources) Dihydropyridine Calcium Channel Jim Start: 05-14-2022 End: 12-03-2024 Start: 05-14-2022 amLODIPine (No rvasc) 10 MG tablet 05/14/2022 Active Start: 12-03-2017 take 1 tablet by kenneth th once daily amLODIPine (NORVASC) 5 MG tablet [...] intravenously every six hours polyethylene glycol 3350 11486 mg powder for oral solution (2 sources) [...] hours PRN, nausea, vomiting, Starting on Keisha 5/03/13 at 2212, 1st Line. If inadequate response [...] hours PRN, nausea, vomiting, Starting on Keisha 5/25 at 2212, 1st Line. 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] Onset: 12-02-2017 Episodic Other connective tissue disease (1 source) Muscle weakness (generalized); Translations: [Muscle weakness (generalized)] Onset: 02-17-2025 Episodic Other diseases of veins and lymphatics (2 sources) Chronic venous hypertension (idiopathic) with ulcer of [...] Onset: 11-24-2024 Episodic Other nervous system disorders (2 sources) Unspecified lack of coordination; Translations: [Unspecified lack of coordination] Onset: 02-17-2025 Episodic Other nutritional; endocrine; and metabolic disorders (1 source) Obesity, unspecified; Translations: [Obesity, unspecified] Onset: 02-17-2025 Chronic Other skin disorders (2 sources) Localized swelling, mass and lump, head; Translations: [Localized swelling, mass and lump, head] Onset: 12-02-2017 Episodic Phlebitis; thrombophlebitis and thromboembolism (1 source) Acute embolism and thrombosis of right popliteal vein; Translations: [Acute embolism and thrombosis of right popliteal vein] Onset: 03-10-2025 Episodic Residual codes; unclassified (4 sources) Edema of lower extremity; Translations: [Localized edema] 12-03-2024 Episodic Residual codes; unclassified (2 sources) Localized edema; Translations: [Localized edema] Onset: 11-24-2024 Episodic Septicemia (except in labor) (2 sources) Sepsis, unspecified organism; Translations: [Sepsis, unspecified organism] [...] on 01-23-2025 Bilirubin Ql (U) Negative Negative [facility] Hyaline casts LM.LPF (Urine sed) [#/Area]Ordered By: Juan R Lee on 01-23-2025 Hyaline casts (Urine sed) [#/Area] 0 /[LPF] 0-5 [facility] Ketones Test strip Ql (U)Ord ered By: Juan R Lee on 01-23-2025 Ketones Ql (U) Negative Negative [facility] Microscopic analysis of urin e for red blood cells (RBC)Ordered By: Juan R Lee on 01-23-2025 Microscopic analysis of urine for red blood cells (RBC) 25-50 SEEN /hpf 0-5 [facility] Mucus LM Ql (Urine sed)Order ed By: Juan R Lee on 01-23-2025 Mucus Ql (Urine sed) 1+ /hpf [facility] Nitrite Test strip Ql (U)Ord ered By: Juan R Lee on 01-23-2025 Nitrite Ql (U) Negative Negative [facility] Protein Test strip Ql (U)Ord ered By: Juan R Lee on 01-23-2025 Protein Ql (U) 30 mg/dl High Negative [facility] Squamous epithelial cells de tection in urine sediment by light microscopyOrdered By: Juan R Lee on 01-23-2025 Epithelial cells.squamous LM Ql (Urine sed) 5-10 SEEN /hpf 5-10 [facility] Urine clarityOrdered By: Bharathi Lee on 01-23-2025 Clarity (U) Sl. Cloudy Clear [facility] Urine color determinationOrd ered By: Juan R Lee on 01-23-2025 Color (U) Yellow Yellow [facility] Urine cultureOrdered By: Bharathi Lee on 01-23-2025 Bacteria identified Cx Nom (U) Mixed Gram Pos & Gram Neg Org Abnormal [facility] Urine glucose detectionOrder ed By: Juan R Lee on 01-23-2025 Glucose Ql (U) Normal mg/dl Normal [facility] Urine leukocyte esterase det ection by dipstickOrdered By: Juan R Lee on 01-23-2025 Leukocyte esterase Test strip Ql (U) 25 /ul High Negative [facility] Urine pHOrdered By: Juan R el on 01-23-2025 pH (U) 7.0 [pH] 5.0 - 8.0 [facility] Urine sediment bacteria coun t by microscopy (number/high power field)Ordered By: Juan R Lee on 01-23-2025 Bacteria LM.HPF (Urine sed) [#/Area] RARE /hpf None Seen [facility] Urine specific gravity measu rementOrdered By: Juan R Lee on 01-23-2025 Specific gravity (U) [Rel density] 1.010 1.002-1.030 [facility] Urine urobilinogen measureme ntOrdered By: Juan R Lee on 01-23-2025 Urobilinogen Ql (U) 1 mg/dl High Normal [facility] White blood cell countOrdere d By: Juan R Lee on 01-23-2025 White blood cell count 10-25 SEEN /hpf 0-5 [facility] [id number] 01-01-2025 [id number] Patient Choice Patient Name: MAXWELL COLLIER Date of : 1960 [facility] Clostridium difficile detect ion by polymerase chain reactionOrdered By: Abraham Abbott on 12-19-2024 C. difficile DNA ARON+probe Ql (Unsp spec) [facility] Anion gap in Serum or Plasma Ordered By: Juan R Lee on 12-07-2024 Anion gap [Moles/Vol] 11 mmol/L 5-15 [facility] BUN/creatinine ratioOrdered By: Juan R Lee on 12-07-2024 Urea nitrogen/Creatinine [Mass ratio] 13.6 mg/mg 10-20 [facility] Bilirubin, totalOrdered By: Juan R Lee on 12-07-2024 Bilirubin [Mass/Vol] 0.81 mg/dL 0.00-1.30 [facility] Carbon dioxide, total [Moles /volume] in Central venous bloodOrdered By: Juan R Lee on 12-07-2024 CO2 [Moles/Vol] 22.7 mmol/L 21.0-32.0 [facility] Chloride assayOrdered By: Shaan Chaudhari on 12-07-2024 Chloride [Moles/Vol] 111 mmol/L High 98-108 [facility] Erythrocyte distribution wid th ratioOrdered By: Juan R Lee on 12-07-2024 Erythrocyte distribution width (RBC) [Ratio] 16.3 % High 11.6-14.6 [facility] Erythrocyte distribution wid th standard deviationOrdered By: Juan R Lee on 12-07-2024 Erythrocyte distribution width (RBC) [Ratio] 63.7 fl High 35.1-43.9 [facility] Glomerular filtration rate ( GFR) estimation/1.73 sq m using serum, plasma, or whole bOrdered By: Juan R Lee on 12-07-2024 GFR/1.73 sq M.predicted among non-blacks MDRD (S/P/Bld) [Vol rate/Area] 109 mL/min/{1.73_m2} >60 [facility] Comment on above: mL/min/1.73m2 CKD-EP I Creatinine Equation (2020) Hematocrit Auto (Bld) [Volum e fraction]Ordered By: Juan R Lee on 12-07-2024 Hematocrit (Bld) [Volume fraction] 25.1 % Low 37-47 [facility] Hemoglobin measurementOrdere d By: Juan R Lee on 12-07-2024 Hemoglobin (Bld) [Mass/Vol] 7.9 g/dL Low 12.0-15.0 [facility] Laboratory - Chemistry and C hemistry - challengeOrdered By: Juan R Lee on 12-07-2024 AST [Catalytic activity/Vol] 24 U/L <32 [facility] MCV (mean corpuscular volume ) determinationOrdered By: Juan R Lee on 12-07-2024 MCV (RBC) [Entitic vol] 106.4 fL High 81-99 [facility] Mean corpuscular hemoglobin (MCH) determinationOrdered By: Juan R Lee on 12-07-2024 MCH (RBC) [Entitic mass] 33.5 pg High 27.0-32.0 [facility] Mean corpuscular hemoglobin concentration (MCHC) determinationOrdered By: Juan R Lee on 12-07-2024 MCHC (RBC) [Mass/Vol] 31.5 g/dL Low 32-36 [facility] Mean platelet volume determi nationOrdered By: Juan R Lee on 12-07-2024 Platelet mean volume (Bld) [Entitic vol] 9.9 fL 6.2-12.0 [facility] Platelet countOrdered By: Shaan Chaudhari on 12-07-2024 Platelets (Bld) [#/Vol] 174 10*3/uL 150-450 [facility] Potassium measurement (mass/ volume)Ordered By: Juan R Lee on 12-07-2024 Potassium (Unsp spec) [Mass/Vol] 3.2 mmol/L Low 3.3-5.1 [facility] RBC Auto (Bld) [#/Vol]Ordere d By: Juan R Lee on 12-07-2024 RBC (Bld) [#/Vol] 2.36 10*6/uL Low 4.2-5.4 [facility] Serum creatinine measurement (mass/volume)Ordered By: Juan R Lee on 12-07-2024 Creatinine [Mass/Vol] 0.45 mg/dL Low 0.70-1.20 [facility] Serum globulin measurementOr dered By: Juan R Lee on 12-07-2024 Globulin (S) [Mass/Vol] 2.4 g/dL 2.2-4.2 [facility] Serum glucose measurement (m ass/volume)Ordered By: Juan R Lee on 12-07-2024 Glucose [Mass/Vol] 77 mg/dL 70-99 [facility] Serum or plasma alanine august otransferase (ALT) measurementOrdered By: Juan R Lee on 12-07-2024 ALT [Catalytic activity/Vol] 27 U/L <35 [facility] Serum or plasma albumin sarah urement (mass/volume)Ordered By: Juan R Lee on 12-07-2024 Albumin [Mass/Vol] 3.0 g/dL Low 3.4-4.8 [facility] Serum or plasma albumin/glob ulin mass ratioOrdered By: Juan R Lee on 12-07-2024 Albumin/Globulin [Mass ratio] 1.3 {ratio} 0.9-2.4 [facility] Serum or plasma alkaline talya sphatase measurementOrdered By: Juan R Lee on 12-07-2024 ALP [Catalytic activity/Vol] 91 U/L 35-104 [facility] Serum or plasma calcium sarah urement (mass/volume)Ordered By: Juan R Lee on 12-07-2024 Calcium [Mass/Vol] 9.3 mg/dL 7.6-11.0 [facility] Serum or plasma urea nitroge n measurement (mass/volume)Ordered By: Juan R Lee on 12-07-2024 Urea nitrogen [Mass/Vol] 6 mg/dL 4- [facility] Sodium levelOrdered By: Lui Lee on 12-07-2024 Sodium [Moles/Vol] 144 mmol/L 133-145 [facility] Total proteinOrdered By: Bharathi Lee on 12-07-2024 Protein [Mass/Vol] 5.4 g/dL Low 5.9-8.4 [facility] White blood cell (WBC) count Ordered By: Juan R Lee on 12-07-2024 WBC (Bld) [#/Vol] 5.1 10*3/uL 4.4-11.0 [facility] Anion gap in Serum or Plasma Ordered By: Juan R Lee on 12-05-2024 Anion gap [Moles/Vol] 11 mmol/L 5-15 [facility] BUN/creatinine ratioOrdered By: Juan R Lee on 12-05-2024 Urea nitrogen/Creatinine [Mass ratio] 15.7 mg/mg 10-20 [facility] Bilirubin, totalOrdered By: Juan R Lee on 12-05-2024 Bilirubin [Mass/Vol] 0.89 mg/dL 0.00-1.30 [facility] Carbon dioxide, total [Moles /volume] in Central venous bloodOrdered By: Juan R Lee on 12-05-2024 CO2 [Moles/Vol] 23.1 mmol/L 21.0-32.0 [facility] Chloride assayOrdered By: Shaan Chaudhari on 12-05-2024 Chloride [Moles/Vol] 107 mmol/L 98-108 [facility] Erythrocyte distribution wid th ratioOrdered By: Juan R Lee on 12-05-2024 Erythrocyte distribution width (RBC) [Ratio] 16.4 % High 11.6-14.6 [facility] Erythrocyte distribution wid th standard deviationOrdered By: Juan R Lee on 12-05-2024 Erythrocyte distribution width (RBC) [Ratio] 62.6 fl High 35.1-43.9 [facility] Glomerular filtration rate ( GFR) estimation/1.73 sq m using serum, plasma, or whole bOrdered By: Juan R Lee on 12-05-2024 GFR/1.73 sq M.predicted among non-blacks MDRD (S/P/Bld) [Vol rate/Area] 113 mL/min/{1.73_m2} >60 [facility] Comment on above: mL/min/1.73m2 CKD-EP I Creatinine Equation (2020) Hematocrit Auto (Bld) [Volum e fraction]Ordered By: Juan R Lee on 12-05-2024 Hematocrit (Bld) [Volume fraction] 23.5 % Low 37-47 [facility] Hemoglobin measurementOrdere d By: Juan R Lee on 12-05-2024 Hemoglobin (Bld) [Mass/Vol] 7.7 g/dL Low 12.0-15.0 [facility] Laboratory - Chemistry and C hemistry - challengeOrdered By: Juan R Lee on 12-05-2024 AST [Catalytic activity/Vol] 35 U/L High <32 [facility] MCV (mean corpuscular volume ) determinationOrdered By: Juan R Lee on 12-05-2024 MCV (RBC) [Entitic vol] 104.0 fL High 81-99 [facility] Mean corpuscular hemoglobin (MCH) determinationOrdered By: Juan R Lee on 12-05-2024 MCH (RBC) [Entitic mass] 34.1 pg High 27.0-32.0 [facility] Mean corpuscular hemoglobin concentration (MCHC) determinationOrdered By: Juan R Lee on 12-05-2024 MCHC (RBC) [Mass/Vol] 32.8 g/dL 32-36 [facility] Mean platelet volume determi nationOrdered By: Juan R Lee on 12-05-2024 Platelet mean volume (Bld) [Entitic vol] 10.2 fL 6.2-12.0 [facility] Platelet countOrdered By: Shaan Chaudhari on 12-05-2024 Platelets (Bld) [#/Vol] 150 10*3/uL 150-450 [facility] Potassium measurement (mass/ volume)Ordered By: Juan R Lee on 12-05-2024 Potassium (Unsp spec) [Mass/Vol] 3.2 mmol/L Low 3.3-5.1 [facility] RBC Auto (Bld) [#/Vol]Ordere d By: Juan R Lee on 12-05-2024 RBC (Bld) [#/Vol] 2.26 10*6/uL Low 4.2-5.4 [facility] Serum creatinine measurement (mass/volume)Ordered By: Juan R Lee on 12-05-2024 Creatinine [Mass/Vol] 0.39 mg/dL Low 0.70-1.20 [facility] Serum globulin measurementOr dered By: Juan R Lee on 12-05-2024 Globulin (S) [Mass/Vol] 2.4 g/dL 2.2-4.2 [facility] Serum glucose measurement (m ass/volume)Ordered By: Juan R Lee on 12-05-2024 Glucose [Mass/Vol] 79 mg/dL 70-99 [facility] Serum or plasma alanine august otransferase (ALT) measurementOrdered By: Juan R Lee on 12-05-2024 ALT [Catalytic activity/Vol] 36 U/L High <35 [facility] Serum or plasma albumin sarah urement (mass/volume)Ordered By: Juan R Lee on 12-05-2024 Albumin [Mass/Vol] 3.1 g/dL Low 3.4-4.8 [facility] Serum or plasma albumin/glob ulin mass ratioOrdered By: Juan R Lee on 12-05-2024 Albumin/Globulin [Mass ratio] 1.3 {ratio} 0.9-2.4 [facility] Serum or plasma alkaline talya sphatase measurementOrdered By: Juan R Lee on 12-05-2024 ALP [Catalytic activity/Vol] 84 U/L 35-104 [facility] Serum or plasma calcium sarah urement (mass/volume)Ordered By: Juan R Lee on 12-05-2024 Calcium [Mass/Vol] 9.2 mg/dL 7.6-11.0 [facility] Serum or plasma urea nitroge n measurement (mass/volume)Ordered By: Juan R Lee on 12-05-2024 Urea nitrogen [Mass/Vol] 6 mg/dL 4-19 [facility] Sodium levelOrdered By: Lui Lee on 12-05-2024 Sodium [Moles/Vol] 141 mmol/L 133-145 [facility] Total proteinOrdered By: Bharathi Lee on 12-05-2024 Protein [Mass/Vol] 5.5 g/dL Low 5.9-8.4 [facility] White blood cell (WBC) count Ordered By: Juan R Lee on 12-05-2024 WBC (Bld) [#/Vol] 5.6 10*3/uL 4.4-11.0 [facility] 30on 12-03-2024 30 Normal [facility] [id number] 12-03-2024 [id number] Normal [facility] [id number] Normal [facility] BASIC METABOLIC PANELon 05 Anion gap [Moles/Vol] 8 mmol/L Normal 3-13 [facility] Comment on above: Performed By: #### L [id number], LAB15, [id number] ####Systems Mgr: JESSY OWENS ([id number])[address] Calcium [Mass/Vol] 9.3 mg/dL Normal 8.8-10.0 [facility] Comment on above: Performed By: #### L [id number], LAB15, [id number] ####Systems Mgr: JESSY OWENS ([id number])[facility])[address] [place] [address] Chloride [Moles/Vol] 107 mmol/L Normal 98-107 [facility] Comment on above: Performed By: #### L [id number], LAB15, [id number] ####Systems Mgr: JESSY OWENS ([id number])[facility])[address] [place] [address] [place] CO2 [Moles/Vol] 24 mmol/L Normal 23-31 [facility] Comment on above: Performed By: #### L AB103, LAB15, [id number] ####Systems Mgr: JESSY OWENS ([id number])[facility])[address] [place] [address] Creatinine [Mass/Vol] 0.51 mg/dL Low 0.57-1.11 [facility] Comment on above: Performed By: #### L [id number], LAB15, [id number] ####Systems Mgr: JESSY OWENS ([id number])[facility])[address] [place] [address] GLOMERULAR FILTRATION RATE ML/MIN/1.73 SQ M.PREDICTED >90.0 Normal >60.0 [facility] Comment on above: Result Comment: Calc ulation based on the Chronic Kidney Disease Epidemiology Collaboration (CKD-EPI) equation refit without adjustment for race Performed By: #### Davidson AB103, LAB15, [id number] ####Systems Mgr: JESSY OWENS ([id number])[facility] ([facility])[address] [place] [address] Glucose [Mass/Vol] 82 mg/dL Normal 82-115 [facility] Comment on above: Performed By: #### L AB103, LAB15, [id number] ####Systems Mgr: JESSY OWENS ([id number])[facility])[address] [place] [address] Potassium [Moles/Vol] 3.4 mmol/L Low 3.5-5.1 [facility] Comment on above: Result Comment: [facility] potassium values may be up to 0.5 mmol/L lower than serum values. Performed By: #### L AB103, LAB15, [id number] ####Systems Mgr: JESSY OWENS ([id number])[facility])[address] [place] [address] Sodium [Moles/Vol] 139 mmol/L Normal 136-145 [facility] Comment on above: Performed By: #### L AB103, LAB15, [id number] ####Systems Mgr: JESSY OWENS ([id number])[facility] ([facility])[address] [place] [address] Urea nitrogen [Mass/Vol] 13 mg/dL Normal 9-23 [facility] Comment on above: Performed By: #### L AB103, LAB15, [id number] ####Systems Mgr: JESSY OWENS ([id number])[facility] ([facility])[address] [place] [address] Bacteria identified Cx Nom ( Bld)on 12-03-2024 Interpretation and review of laboratory results Normal [facility] Basic metabolic 1998 panelon 12-03-2024 Anion gap [Moles/Vol] 8 mmol/L 3 - 13 mmol/L [facility] Calcium [Mass/Vol] 9.3 mg/dL 8.8 - 10. 0 mg/dL [facility] Chloride [Moles/Vol] 107 mmol/L 98 - 10 7 mmol/L [facility] CO2 [Moles/Vol] 24 mmol/L 23 - 31 mmol/L [facility] Creatinine [Mass/Vol] 0.51 mg/dL Low 0.57 - 1.11 mg/dL [facility] GFR/1.73 sq M.predicted (S/P/Bld) [Vol rate/Area] - PINF [facility] Glucose [Mass/Vol] 82 mg/dL 82 - 115 mg/dL [facility] Potassium [Moles/Vol] 3.4 mmol/L Low 3.5 - 5.1 mmol/L [facility] Sodium [Moles/Vol] 139 mmol/L 136 - 145 mmol/L [facility] Urea nitrogen [Mass/Vol] 13 mg/dL 9 - 23 mg/d L [facility] CALCIUM, IONIZEDon CALCIUM IONIZED 4.90 mg/dL Normal 4.30-5.20 [facility] Comment on above: Performed By: #### L [id number] ####Systems Mgr: JESSY OWENS ([id number])[facility])[address] [place] [address] PH, IONIZED CALCIUM 7.38 Normal 7.31-7.46 [facility] Comment on above: Performed By: #### L [id number] ####Systems Mgr: JESSY OWENS ([id number])[facility] ([address] CBC W Auto Differential pane l (Bld)on 12-03-2024 Basophils (Bld) [#/Vol] 0 10*3/uL 0.0 - 0.2 10*3/uL [facility] Basophils/100 WBC (Bld) 0.1 % 0.0 - 2.0 % [facility] Eosinophils (Bld) [#/Vol] 0.2 10*3/uL 0.0 - 0.5 10*3/uL [facility] Eosinophils/100 WBC (Bld) 2.1 % 0.0 - 6.0 % [facility] Erythrocyte distribution width (RBC) [Ratio] 16.6 % High 11.5 - 15.0 % [facility] Hematocrit (Bld) [Volume fraction] 25.8 % Low 35.0 - 47.0 % [facility] Hemoglobin (Bld) [Mass/Vol] 8.4 g/dL Low 11.7 - 16.0 g/dL [facility] Immature granulocytes (Bld) [#/Vol] 0.1 10*3/uL High NINF - 0.1 10*3/uL [facility] Immature granulocytes/100 WBC (Bld) 1.3 % 0.0 - 2.0 % [facility] Interpretation and review of laboratory results Abnormal [facility] Lymphocytes (Bld) [#/Vol] 1.5 10*3/uL 1.0 - 4.3 10*3/uL [facility] Lymphocytes/100 WBC (Bld) 17.2 % 15.0 - 45.0 % [facility] MCH (RBC) [Entitic mass] 33.5 pg 26. 0 - 34.0 pg [facility] MCHC (RBC) [Mass/Vol] 32.6 % 30.5 - 36.0 % [facility] MCV (RBC) [Entitic vol] 102.8 fL High 77.0 - 99.0 fL [facility] Monocytes (Bld) [#/Vol] 0.5 10*3/uL 0.0 - 0.9 10*3/uL [facility] Monocytes/100 WBC (Bld) 5.3 % 5.0 - 13.0 % [facility] Neutrophils (Bld) [#/Vol] 6.6 10*3/uL 1.8 - 7.5 10*3/uL [facility] Neutrophils/100 WBC (Bld) 74 % 38.0 - 82.0 % [facility] Nucleated RBC/100 WBC (Bld) [Ratio] 0 % [facility] Platelet mean volume (Bld) [Entitic vol] 10.6 fL 9.0 - 12.7 fL [facility] Platelets (Bld) [#/Vol] 112 10*3/uL Low 140 - 440 10*3/uL [facility] RBC (Bld) [#/Vol] 2.51 10*6/uL Low 3.80 - 5.2 0 10*6/uL [facility] WBC (Bld) [#/Vol] 8.9 10*3/uL 3.6 - 10.7 10*3/uL [facility] CBC WITH AUTO DIFFERENTIALon 12-03-2024 Basophils (Bld) [#/Vol] 0.0 10*3/uL Normal 0.0-0.2 [facility] Comment on above: Performed By: #### L [id number] ####Systems Mgr: JESSY OWENS ([id number])[address] Basophils/100 WBC (Bld) 0.1 % Normal 0.0-2.0 [facility] Comment on above: Performed By: #### L [id number] ####Systems Mgr: JESSY OWENS ([id number])[facility] ([facility])[address] [place] [address] Eosinophils (Bld) [#/Vol] 0.2 10*3/uL Normal 0.0-0.5 [facility] Comment on above: Performed By: #### L [id number] ####Systems Mgr: JESSY OWENS ([id number])[facility])[address] [place] [address] Eosinophils/100 WBC (Bld) 2.1 % Normal 0.0-6.0 [facility] Comment on above: Performed By: #### L [id number] ####Systems Mgr: JESSY OWENS ([id number])[facility])[address] [place] [address] Erythrocyte distribution width (RBC) [Ratio] 16.6 % High 11.5-15.0 [facility] Comment on above: Performed By: #### L [id number] ####Systems Mgr: JESSY OWENS ([id number])[address] Hematocrit (Bld) [Volume fraction] 25.8 % Low 35.0-47.0 [facility] Comment on above: Performed By: #### L [id number] ####Systems Mgr: JESSY OWENS ([id number])[address] Hemoglobin (Bld) [Mass/Vol] 8.4 g/dL Low 11.7-16.0 [facility] Comment on above: Performed By: #### L [id number] ####Systems Mgr: JESSY OWENS ([id number])[facility])[address] [place] [address] IMMATURE GRANS % 1.3 % Normal 0.0-2.0 [facility] Comment on above: Performed By: #### L [id number] ####Systems Mgr: JESSY OWENS ([id number])[address] IMMATURE GRANS ABSOLUTE 0.1 10*3/uL High <0.1 [facility] Comment on above: Performed By: #### L [id number] ####Systems Mgr: JESSY OWENS ([id number])[address] Lymphocytes (Bld) [#/Vol] 1.5 10*3/uL Normal 1.0-4.3 [facility] Comment on above: Performed By: #### L [id number] ####Systems Mgr: JESSY OWENS ([phone])[facility])[address] [place] [address] Lymphocytes/100 WBC (Bld) 17.2 % Normal 15.0-45.0 [facility] Comment on above: Performed By: #### L [id number] ####Systems Mgr: JESSY OWENS ([id number])[facility])[address] [place] [address] MCH (RBC) [Entitic mass] 33.5 pg Normal 26.0-34.0 [facility] Comment on above: Performed By: #### L [id number] ####Systems Mgr: JESSY OWENS ([id number])[facility])[address] [place] [address] MCHC 32.6 % Normal 30.5-36.0 [facility] Comment on above: Performed By: #### L [id number] ####Systems Mgr: JESSY OWENS ([phone])[facility])[address] [place] [address] MCV (RBC) [Entitic vol] 102.8 fL High 77.0-99.0 [facility] Comment on above: Performed By: #### L [id number] ####Systems Mgr: JESSY OWENS ([id number])[facility])[address] [place] [address] Monocytes (Bld) [#/Vol] 0.5 10*3/uL Normal 0.0-0.9 [facility] Comment on above: Performed By: #### L [id number] ####Systems Mgr: JESSY OWENS ([id number])[facility])[address] [place] [address] Monocytes/100 WBC (Bld) 5.3 % Normal 5.0-13.0 [facility] Comment on above: Performed By: #### L [id number] ####Systems Mgr: JESSY OWENS ([id number])[facility])[address] [place] [address] NEUTROPHILS ABSOLUTE 6.6 10*3/uL Normal 1.8-7.5 [facility] Comment on above: Performed By: #### L [id number] ####Systems Mgr: JESSY OWENS ([id number])[facility] ([facility])[address] [place] [address] Neutrophils/100 WBC (Bld) 74.0 % Normal 38.0-82.0 [facility] Comment on above: Performed By: #### L [id number] ####Systems Mgr: JESSY OWENS ([id number])[facility] ([facility])[address] [place] [address] NRBC 0.0 /100 WBCs Normal 0.0-2.0 [facility] Comment on above: Performed By: #### L [id number] ####Systems Mgr: JESSY OWENS ([id number])[facility] ([facility])[address] [place] [address] Platelet mean volume (Bld) [Entitic vol] 10.6 fL Normal 9.0-12.7 [facility] Comment on above: Performed By: #### L [id number] ####Systems Mgr: JESSY OWENS ([id number])[facility] ([facility])[address] [place] [address] [place] Platelets (Bld) [#/Vol] 112 10*3/uL Low 140-440 [facility] Comment on above: Performed By: #### L [id number] ####Systems Mgr: JESSY OWENS ([id number])[facility] ([facility])[address] [place] [address] [place] RBC (Bld) [#/Vol] 2.51 10*6/uL Low 3.80-5.20 [facility] Comment on above: Performed By: #### L [id number] ####Systems Mgr: JESSY OWENS ([id number])[facility])[address] [place] [address] [place] WBC (Bld) [#/Vol] 8.9 10*3/uL Normal 3.6-10.7 [facility] Comment on above: Performed By: #### L [id number] ####Systems Mgr: JESSY OWENS ([id number])[facility] ([facility])[address] [place] [address] Calcium.ionized [Moles/Vol]o n 12-03-2024 Calcium.ionized (Bld) [Moles/Vol] 4.9 mg/dL 4.30 - 5.20 mg/dL [facility] Interpretation and review of laboratory results Normal [facility] PH, IONIZED CALCIUM 7.38 7.31 - 7.46 [facility] Laboratory - Chemistry and C hemistry - challengeon 12-03-2024 Glucose [Mass/Vol] 68 mg/dL Low 70 - 100 mg/dL [facility] Glucose [Mass/Vol] 92 mg/dL 70 - 100 mg/dL [facility] Magnesium [Mass/Vol] 1.6 mg/dL 1.6 - 2 .6 mg/dL [facility] Laboratory - Microbiology an d Antimicrobial susceptibilityon 12-03-2024 Bacteria identified Cx Nom (Bld) No growth at 5 days [facility] MAGNESIUMon 12-03-2024 Magnesium [Mass/Vol] 1.6 mg/dL Normal 1.6-2.6 [facility] Comment on above: Result Comment: TANA Wick COMMENTS:Higher values can be expected in females during menses. Performed By: #### L AB103, LAB15, ZCL104 ####Systems Mgr: JESSY OWENS ([id number])[facility] ([facility])[address] [place] [address] Magnesium [Mass/Vol]on 12-03 Interpretation and review of laboratory results Normal [facility] No Panel Informationon 12-03 Interpretation and review of laboratory results Abnormal [facility] Interpretation and review of laboratory results Normal [facility] Interpretation and review of laboratory results Abnormal [facility] Nursing Noteon 12-03-2024 Nursing Note Pt discharged at this time. All belongings were collected and sent with patient. [facility]. Report also called to long-term ([facility]) with all questions answered. Normal [facility] Nursing Note Patient has all home medications in bag for discharged. Nothing remains in med cabinet. Normal [facility] Nursing Note MELBA completed at this time. Normal [facility] Nursing Note Attempted to call report. Was told that nurse is busy. Awaiting call back. Normal [facility] Nursing Note Wound care to bilateral buttocks preformed at this time. Pt tolerated well. Normal [facility] PHOSPHORUSon 12-03-2024 Phosphate [Mass/Vol] 2.2 mg/dL Low 2.3-4.7 [facility] Comment on above: Performed By: #### L AB103, LAB15, [id number] ####Systems Mgr: JESSY OWENS ([id number])[facility])[address] [place] [address] Phosphate [Moles/Vol]on 11-17 Phosphate [Mass/Vol] 2.2 mg/dL Low 2.3 - 4 .7 mg/dL [facility] [id number] 12-02-2024 [id number] completed in [place] per [facility] request. Facility notified via careport. [facility] [phone] Transport requested in [employer] in will call to Risa Okeefe per [facility]. [facility] [phone] [facility] CALCIUM, IONIZEDon CALCIUM IONIZED 4.80 mg/dL Normal 4.30-5.20 [facility] Comment on above: Performed By: #### L AB54 ####Systems Mgr: JESSY OWENS ([id number])[facility] ([facility])[address] [place] [address] PH, IONIZED CALCIUM 7.46 Normal 7.31-7.46 [facility] Comment on above: Performed By: #### L AB54 ####Systems Mgr: JESSY OWENS ([id number])[facility] ([facility])[address] [place] [address] CBC W Auto Differential pane l (Bld)on 12-02-2024 Basophils (Bld) [#/Vol] 0 10*3/uL 0.0 - 0.2 10*3/uL [facility] Basophils/100 WBC (Bld) 0.2 % 0.0 - 2.0 % [facility] Eosinophils (Bld) [#/Vol] 0.2 10*3/uL 0.0 - 0.5 10*3/uL [facility] Eosinophils/100 WBC (Bld) 2.7 % 0.0 - 6.0 % [facility] Erythrocyte distribution width (RBC) [Ratio] 16.4 % High 11.5 - 15.0 % [facility] Hematocrit (Bld) [Volume fraction] 24.8 % Low 35.0 - 47.0 % [facility] Hemoglobin (Bld) [Mass/Vol] 8 g/dL Low 11.7 - 16.0 g/dL [facility] Immature granulocytes (Bld) [#/Vol] 0.1 10*3/uL High NINF - 0.1 10*3/uL [facility] Immature granulocytes/100 WBC (Bld) 2.1 % High 0.0 - 2.0 % [facility] Interpretation and review of laboratory results Abnormal [facility] IPF 5 [facility] Lymphocytes (Bld) [#/Vol] 1.2 10*3/uL 1.0 - 4.3 10*3/uL [facility] Lymphocytes/100 WBC (Bld) 18.3 % 15.0 - 45.0 % [facility] MCH (RBC) [Entitic mass] 33.3 pg 26. 0 - 34.0 pg [facility] MCHC (RBC) [Mass/Vol] 32.3 % 30.5 - 36.0 % [facility] MCV (RBC) [Entitic vol] 103.3 fL High 77.0 - 99.0 fL [facility] Monocytes (Bld) [#/Vol] 0.4 10*3/uL 0.0 - 0.9 10*3/uL [facility] Monocytes/100 WBC (Bld) 5.6 % 5.0 - 13.0 % [facility] Neutrophils (Bld) [#/Vol] 4.7 10*3/uL 1.8 - 7.5 10*3/uL [facility] Neutrophils/100 WBC (Bld) 71.1 % 38.0 - 82.0 % [facility] Nucleated RBC/100 WBC (Bld) [Ratio] 0 % [facility] Platelet mean volume (Bld) [Entitic vol] 10.7 fL 9.0 - 12.7 fL [facility] Platelets (Bld) [#/Vol] 70 10*3/uL Low 140 - 440 10*3/uL [facility] RBC (Bld) [#/Vol] 2.4 10*6/uL Low 3.80 - 5.2 0 10*6/uL [facility] WBC (Bld) [#/Vol] 6.7 10*3/uL 3.6 - 10.7 10*3/uL [facility] CBC WITH AUTO DIFFERENTIALon 12-02-2024 Basophils (Bld) [#/Vol] 0.0 10*3/uL Normal 0.0-0.2 [facility] Comment on above: Performed By: #### L [id number] ####Systems Mgr: JESSY OWENS ([id number])[facility])[address] [place] [address] Basophils/100 WBC (Bld) 0.2 % Normal 0.0-2.0 [facility] Comment on above: Performed By: #### L [id number] ####Systems Mgr: JESSY OWENS ([phone])[facility])[address] [place] [address] Eosinophils (Bld) [#/Vol] 0.2 10*3/uL Normal 0.0-0.5 [facility] Comment on above: Performed By: #### L [id number] ####Systems Mgr: JESSY OWENS ([id number])[facility])[address] [place] [address] Eosinophils/100 WBC (Bld) 2.7 % Normal 0.0-6.0 [facility] Comment on above: Performed By: #### L [id number] ####Systems Mgr: JESSY OWENS ([id number])[facility])[address] [place] [address] Erythrocyte distribution width (RBC) [Ratio] 16.4 % High 11.5-15.0 [facility] Comment on above: Performed By: #### L [id number] ####Systems Mgr: JESSY OWENS ([id number])[address] Hematocrit (Bld) [Volume fraction] 24.8 % Low 35.0-47.0 [facility] Comment on above: Performed By: #### L [id number] ####Systems Mgr: JESSY OWENS ([id number])[address] Hemoglobin (Bld) [Mass/Vol] 8.0 g/dL Low 11.7-16.0 [facility] Comment on above: Performed By: #### L [id number] ####Systems Mgr: JESSY OWENS ([id number])[address] IMMATURE GRANS % 2.1 % High 0.0-2.0 [facility] Comment on above: Performed By: #### L [id number] ####Systems Mgr: JESSY OWENS ([id number])[address] IMMATURE GRANS ABSOLUTE 0.1 10*3/uL High <0.1 [facility] Comment on above: Performed By: #### L [id number] ####Systems Mgr: JESSY OWENS ([id number])[address] IPF 5 Normal [facility] Comment on above: Performed By: #### L [id number] ####Systems Mgr: JESSY OWENS ([id number])[address] Lymphocytes (Bld) [#/Vol] 1.2 10*3/uL Normal 1.0-4.3 [facility] Comment on above: Performed By: #### L [id number] ####Systems Mgr: JESSY OWENS ([id number])[facility] ([facility])[address] [place] [address] Lymphocytes/100 WBC (Bld) 18.3 % Normal 15.0-45.0 [facility] Comment on above: Performed By: #### L [id number] ####Systems Mgr: JESSY OWENS ([id number])[facility] ([facility])[address] [place] [address] MCH (RBC) [Entitic mass] 33.3 pg Normal 26.0-34.0 [facility] Comment on above: Performed By: #### L [id number] ####Systems Mgr: JESSY OWENS ([id number])[facility])[address] [place] [address] MCHC 32.3 % Normal 30.5-36.0 [facility] Comment on above: Performed By: #### L [id number] ####Systems Mgr: JESSY OWENS ([id number])[facility] ([facility])[address] [place] [address] MCV (RBC) [Entitic vol] 103.3 fL High 77.0-99.0 [facility] Comment on above: Performed By: #### L [id number] ####Systems Mgr: JESSY OWENS ([id number])[facility])[address] [place] [address] Monocytes (Bld) [#/Vol] 0.4 10*3/uL Normal 0.0-0.9 [facility] Comment on above: Performed By: #### L [id number] ####Systems Mgr: JESSY OWENS ([id number])[facility])[address] [place] [address] Monocytes/100 WBC (Bld) 5.6 % Normal 5.0-13.0 [facility] Comment on above: Performed By: #### L [id number] ####Systems Mgr: JESSY OWENS ([id number])[facility])[address] [place] [address] NEUTROPHILS ABSOLUTE 4.7 10*3/uL Normal 1.8-7.5 [facility] Comment on above: Performed By: #### L [id number] ####Systems Mgr: JESSY OWENS ([id number])[facility] ([facility])[address] [place] [address] Neutrophils/100 WBC (Bld) 71.1 % Normal 38.0-82.0 [facility] Comment on above: Performed By: #### L [id number] ####Systems Mgr: JESSY OWENS ([id number])[facility] ([facility])[address] [place] [address] NRBC 0.0 /100 WBCs Normal 0.0-2.0 [facility] Comment on above: Performed By: #### L [id number] ####Systems Mgr: JESSY OWENS ([id number])[facility] ([facility])[address] [place] [address] Platelet mean volume (Bld) [Entitic vol] 10.7 fL Normal 9.0-12.7 [facility] Comment on above: Performed By: #### L [id number] ####Systems Mgr: JESSY OWENS ([id number])[facility] ([facility])[address] [place] [address] Platelets (Bld) [#/Vol] 70 10*3/uL Low 140-440 [facility] Comment on above: Performed By: #### L [id number] ####Systems Mgr: JESSY OWENS ([id number])[facility] ([facility])[address] [place] [address] [place] RBC (Bld) [#/Vol] 2.40 10*6/uL Low 3.80-5.20 [facility] Comment on above: Performed By: #### L [id number] ####Systems Mgr: JESSY OWENS ([id number])[facility] ([facility])[address] [place] [address] WBC (Bld) [#/Vol] 6.7 10*3/uL Normal 3.6-10.7 [facility] Comment on above: Performed By: #### L [id number] ####Systems Mgr: JESSY OWENS ([id number])[facility] ([facility])[address] [place] [address] Calcium.ionized [Moles/Vol]o n 12-02-2024 Calcium.ionized (Bld) [Moles/Vol] 4.8 mg/dL 4.30 - 5.20 mg/dL [facility] Interpretation and review of laboratory results Normal [facility] PH, IONIZED CALCIUM 7.46 7.31 - 7.46 [facility] Laboratory - Chemistry and C hemistry - challengeon 12-02-2024 Glucose [Mass/Vol] 107 mg/dL High 70 - 100 mg/dL [facility] Glucose [Mass/Vol] 132 mg/dL High 70 - 100 mg/dL [facility] Glucose [Mass/Vol] 103 mg/dL High 70 - 100 mg/dL [facility] Glucose [Mass/Vol] 78 mg/dL 70 - 100 mg/dL [facility] Magnesium [Mass/Vol] 1.6 mg/dL 1.6 - 2 .6 mg/dL [facility] MAGNESIUMon 12-02-2024 Magnesium [Mass/Vol] 1.6 mg/dL Normal 1.6-2.6 [facility] Comment on above: Result Comment: TANA Wick COMMENTS:Higher values can be expected in females during menses. Performed By: #### L AB113, [id number] ####Systems Mgr: JESSY OWENS ([id number])[facility] ([facility])[address] [place] [address] Magnesium [Mass/Vol]on 12-02 Interpretation and review of laboratory results Normal [facility] No Panel Informationon 12-02 Interpretation and review of laboratory results Abnormal [facility] Interpretation and review of laboratory results Abnormal [facility] Interpretation and review of laboratory results Abnormal [facility] Interpretation and review of laboratory results Normal [facility] PHOSPHORUSon 12-02-2024 Phosphate [Mass/Vol] 2.0 mg/dL Low 2.3-4.7 [facility] Comment on above: Performed By: #### L AB113, [id number] ####Systems Mgr: JESSY OWENS ([id number])[facility] ([facility])[address] [place] [address] [place] Phosphate [Moles/Vol]on 11-17 Interpretation and review of laboratory results Abnormal [facility] Phosphate [Mass/Vol] 2 mg/dL Low 2.3 - 4 .7 mg/dL [facility] Progress Noteon 12-02-2024 Progress Note Normal [facility] 30on 12-01-2024 30 Normal [facility] [id number] 12-01-2024 [id number] Normal [facility] [id number] Normal [facility] BASIC METABOLIC PANELon 11-17 Anion gap [Moles/Vol] 7 mmol/L Normal 3-13 [facility] Comment on above: Performed By: #### L AB15 ####Systems Mgr: JESSY OWENS ([id number])[facility] ([facility])[address] [place] [address] Calcium [Mass/Vol] 8.8 mg/dL Normal 8.8-10.0 [facility] Comment on above: Performed By: #### L AB15 ####Systems Mgr: JESSY OWENS ([id number])[facility] ([facility])[address] [place] [address] [place] Chloride [Moles/Vol] 108 mmol/L High 98-107 [facility] Comment on above: Performed By: #### L AB15 ####Systems Mgr: JESSY OWENS ([id number])[facility] ([facility])[address] [place] [address] [place] CO2 [Moles/Vol] 25 mmol/L Normal 23-31 [facility] Comment on above: Performed By: #### L AB15 ####Systems Mgr: JESSY OWENS ([id number])[facility] ([facility])[address] [place] [address] [place] Creatinine [Mass/Vol] 0.53 mg/dL Low 0.57-1.11 [facility] Comment on above: Performed By: #### L AB15 ####Systems Mgr: JESSY OWENS ([id number])[facility])[address] [place] [address] GLOMERULAR FILTRATION RATE ML/MIN/1.73 SQ M.PREDICTED >90.0 Normal >60.0 [facility] Comment on above: Result Comment: Calc ulation based on the Chronic Kidney Disease Epidemiology Collaboration (CKD-EPI) equation refit without adjustment for race Performed By: #### L AB15 ####Systems Mgr: JESSY OWENS ([id number])[facility] ([facility])[address] [place] [address] Glucose [Mass/Vol] 100 mg/dL Normal 82-115 [facility] Comment on above: Performed By: #### L AB15 ####Systems Mgr: JESSY OWENS ([id number])[facility])[address] [place] [address] Potassium [Moles/Vol] 3.4 mmol/L Low 3.5-5.1 [facility] Comment on above: Result Comment: [facility] potassium values may be up to 0.5 mmol/L lower than serum values. Performed By: #### L AB15 ####Systems Mgr: JESSY OWENS ([id number])[facility])[address] [place] [address] [place] Sodium [Moles/Vol] 140 mmol/L Normal 136-145 [facility] Comment on above: Performed By: #### L AB15 ####Systems Mgr: JESSY OWENS ([id number])[facility])[address] [place] [address] [place] Urea nitrogen [Mass/Vol] 14 mg/dL Normal 9-23 [facility] Comment on above: Performed By: #### L AB15 ####Systems Mgr: JESSY OWENS ([id number])[facility])[address] [place] [address] Anion gap [Moles/Vol] 7 mmol/L Normal 3-13 [facility] Comment on above: Performed By: #### L AB15 ####Systems Mgr: JESSY OWENS ([id number])[facility] ([facility])[address] [place] [address] Calcium [Mass/Vol] 8.5 mg/dL Low 8.8-10.0 [facility] Comment on above: Performed By: #### L AB15 ####Systems Mgr: JESSY OWENS ([id number])[facility] ([facility])[address] [place] [address] Chloride [Moles/Vol] 108 mmol/L High 98-107 [facility] Comment on above: Performed By: #### L AB15 ####Systems Mgr: JESSY OWENS ([id number])[facility] ([facility])[address] [place] [address] CO2 [Moles/Vol] 25 mmol/L Normal 23-31 [facility] Comment on above: Performed By: #### L AB15 ####Systems Mgr: JESSY OWENS ([id number])[facility] ([facility])[address] [place] [address] Creatinine [Mass/Vol] 0.53 mg/dL Low 0.57-1.11 [facility] Comment on above: Performed By: #### L AB15 ####Systems Mgr: JESSY OWENS ([id number])[facility] ([facility])[address] [place] [address] GLOMERULAR FILTRATION RATE ML/MIN/1.73 SQ M.PREDICTED >90.0 Normal >60.0 [facility] Comment on above: Result Comment: Calc ulation based on the Chronic Kidney Disease Epidemiology Collaboration (CKD-EPI) equation refit without adjustment for race Performed By: #### L AB15 ####Systems Mgr: JESSY OWENS ([id number])[facility] ([facility])[address] [place] [address] Glucose [Mass/Vol] 98 mg/dL Normal 82-115 [facility] Comment on above: Performed By: #### L AB15 ####Systems Mgr: JESSY OWENS ([id number])[facility] ([facility])[address] [place] [address] Potassium [Moles/Vol] 2.9 mmol/L Low 3.5-5.1 [facility] Comment on above: Result Comment: [facility] potassium values may be up to 0.5 mmol/L lower than serum values. Performed By: #### L AB15 ####Systems Mgr: JESSY OWENS ([id number])[facility] [place] [address] Sodium [Moles/Vol] 140 mmol/L Normal 136-145 [facility] Comment on above: Performed By: #### L AB15 ####Systems Mgr: JESSY OWENS ([id number])[facility] ([facility])[address] [place] [address] Urea nitrogen [Mass/Vol] 11 mg/dL Normal 9-23 [facility] Comment on above: Performed By: #### L [id number] ####Systems Mgr: JESSY OWENS ([phone])[facility] ([facility] [place] [address] Basic metabolic 1998 panelon 12-01-2024 Anion gap [Moles/Vol] 7 mmol/L 3 - 13 mmol/L [facility] Calcium [Mass/Vol] 8.8 mg/dL 8.8 - 10. 0 mg/dL [facility] Chloride [Moles/Vol] 108 mmol/L High 98 - 10 7 mmol/L [facility] CO2 [Moles/Vol] 25 mmol/L 23 - 31 mmol/L [facility] Creatinine [Mass/Vol] 0.53 mg/dL Low 0.57 - 1.11 mg/dL [facility] GFR/1.73 sq M.predicted (S/P/Bld) [Vol rate/Area] - PINF [facility] Glucose [Mass/Vol] 100 mg/dL 82 - 115 mg/dL [facility] Interpretation and review of laboratory results Abnormal [facility] Potassium [Moles/Vol] 3.4 mmol/L Low 3.5 - 5.1 mmol/L [facility] Sodium [Moles/Vol] 140 mmol/L 136 - 145 mmol/L [facility] Urea nitrogen [Mass/Vol] 14 mg/dL 9 - 23 mg/d L [facility] Anion gap [Moles/Vol] 7 mmol/L 3 - 13 mmol/L [facility] Calcium [Mass/Vol] 8.5 mg/dL Low 8.8 - 10. 0 mg/dL [facility] Chloride [Moles/Vol] 108 mmol/L High 98 - 10 7 mmol/L [facility] CO2 [Moles/Vol] 25 mmol/L 23 - 31 mmol/L [facility] Creatinine [Mass/Vol] 0.53 mg/dL Low 0.57 - 1.11 mg/dL [facility] GFR/1.73 sq M.predicted (S/P/Bld) [Vol rate/Area] - PINF [facility] Glucose [Mass/Vol] 98 mg/dL 82 - 115 mg/dL [facility] Interpretation and review of laboratory results Abnormal [facility] Potassium [Moles/Vol] 2.9 mmol/L Low 3.5 - 5.1 mmol/L [facility] Sodium [Moles/Vol] 140 mmol/L 136 - 145 mmol/L [facility] Urea nitrogen [Mass/Vol] 11 mg/dL 9 - 23 mg/d L [facility] CALCIUM, IONIZEDon CALCIUM IONIZED 4.60 mg/dL Normal 4.30-5.20 [facility] Comment on above: Performed By: #### L [id number] ####Systems Mgr: JESSY OWENS ([phone])[address] PH, IONIZED CALCIUM 7.48 High 7.31-7.46 [facility] Comment on above: Performed By: #### L AB54 ####Systems Mgr: JESSY OWENS ([id number])[address] CBC W Auto Differential pane l (Bld)on 12-01-2024 Basophils (Bld) [#/Vol] 0 10*3/uL 0.0 - 0.2 10*3/uL [facility] Basophils/100 WBC (Bld) 0.3 % 0.0 - 2.0 % [facility] Eosinophils (Bld) [#/Vol] 0.1 10*3/uL 0.0 - 0.5 10*3/uL [facility] Eosinophils/100 WBC (Bld) 1.3 % 0.0 - 6.0 % [facility] Erythrocyte distribution width (RBC) [Ratio] 16.6 % High 11.5 - 15.0 % [facility] Hematocrit (Bld) [Volume fraction] 23.1 % Low 35.0 - 47.0 % [facility] Hemoglobin (Bld) [Mass/Vol] 7.6 g/dL Low 11.7 - 16.0 g/dL [facility] Immature granulocytes (Bld) [#/Vol] 0.3 10*3/uL High NINF - 0.1 10*3/uL [facility] Immature granulocytes/100 WBC (Bld) 4.9 % High 0.0 - 2.0 % [facility] Interpretation and review of laboratory results Abnormal [facility] IPF 4 [facility] Lymphocytes (Bld) [#/Vol] 1.2 10*3/uL 1.0 - 4.3 10*3/uL [facility] Lymphocytes/100 WBC (Bld) 17.8 % 15.0 - 45.0 % [facility] MCH (RBC) [Entitic mass] 33.9 pg 26. 0 - 34.0 pg [facility] MCHC (RBC) [Mass/Vol] 32.9 % 30.5 - 36.0 % [facility] MCV (RBC) [Entitic vol] 103.1 fL High 77.0 - 99.0 fL [facility] Monocytes (Bld) [#/Vol] 0.5 10*3/uL 0.0 - 0.9 10*3/uL [facility] Monocytes/100 WBC (Bld) 6.5 % 5.0 - 13.0 % [facility] Neutrophils (Bld) [#/Vol] 4.8 10*3/uL 1.8 - 7.5 10*3/uL [facility] Neutrophils/100 WBC (Bld) 69.2 % 38.0 - 82.0 % [facility] Nucleated RBC/100 WBC (Bld) [Ratio] 0.6 % [facility] Platelet mean volume (Bld) [Entitic vol] 10.9 fL 9.0 - 12.7 fL [facility] Platelets (Bld) [#/Vol] 60 10*3/uL Low 140 - 440 10*3/uL [facility] RBC (Bld) [#/Vol] 2.24 10*6/uL Low 3.80 - 5.2 0 10*6/uL [facility] WBC (Bld) [#/Vol] 6.9 10*3/uL 3.6 - 10.7 10*3/uL [facility] CBC WITH AUTO DIFFERENTIALon 12-01-2024 Basophils (Bld) [#/Vol] 0.0 10*3/uL Normal 0.0-0.2 [facility] Comment on above: Performed By: #### L [id number] ####Systems Mgr: JESSY OWENS ([id number])[facility])[address] [place] [address] Basophils/100 WBC (Bld) 0.3 % Normal 0.0-2.0 [facility] Comment on above: Performed By: #### L [id number] ####Systems Mgr: JESSY OWENS ([id number])[facility] ([facility])[address] [place] [address] Eosinophils (Bld) [#/Vol] 0.1 10*3/uL Normal 0.0-0.5 [facility] Comment on above: Performed By: #### L [id number] ####Systems Mgr: JESSY OWENS ([phone])[facility])[address] [place] [address] Eosinophils/100 WBC (Bld) 1.3 % Normal 0.0-6.0 [facility] Comment on above: Performed By: #### L [id number] ####Systems Mgr: JESSY OWENS ([id number])[facility] ([facility])[address] [place] [address] [place] Erythrocyte distribution width (RBC) [Ratio] 16.6 % High 11.5-15.0 [facility] Comment on above: Performed By: #### L [id number] ####Systems Mgr: JESSY OWENS ([id number])[facility] Hematocrit (Bld) [Volume fraction] 23.1 % Low 35.0-47.0 [facility] Comment on above: Performed By: #### L [id number] ####Systems Mgr: JESSY OWENS ([id number])[facility])[address] [place] [address] Hemoglobin (Bld) [Mass/Vol] 7.6 g/dL Low 11.7-16.0 [facility] Comment on above: Performed By: #### L [id number] ####Systems Mgr: JESSY OWENS ([id number])[facility])[address] [place] [address] IMMATURE GRANS % 4.9 % High 0.0-2.0 [facility] Comment on above: Performed By: #### L [id number] ####Systems Mgr: JESSY OWENS ([phone])[facility])[address] [place] [address] IMMATURE GRANS ABSOLUTE 0.3 10*3/uL High <0.1 [facility] Comment on above: Performed By: #### L [id number] ####Systems Mgr: JESSY OWENS ([id number])[facility])[address] [place] [address] IPF 4 Normal [facility] Comment on above: Performed By: #### L [id number] ####Systems Mgr: JESSY OWENS ([id number])[facility])[address] [place] [address] Lymphocytes (Bld) [#/Vol] 1.2 10*3/uL Normal 1.0-4.3 [facility] Comment on above: Performed By: #### L [id number] ####Systems Mgr: JESSY OWENS ([id number])[facility])[address] [place] [address] Lymphocytes/100 WBC (Bld) 17.8 % Normal 15.0-45.0 [facility] Comment on above: Performed By: #### L [id number] ####Systems Mgr: JESSY OWENS ([id number])[facility])[address] [place] [address] MCH (RBC) [Entitic mass] 33.9 pg Normal 26.0-34.0 [facility] Comment on above: Performed By: #### L [id number] ####Systems Mgr: JESSY OWENS ([id number])[facility])[address] [place] [address] MCHC 32.9 % Normal 30.5-36.0 [facility] Comment on above: Performed By: #### L [id number] ####Systems Mgr: JESSY OWENS ([id number])[facility])[address] [place] [address] MCV (RBC) [Entitic vol] 103.1 fL High 77.0-99.0 [facility] Comment on above: Performed By: #### L [id number] ####Systems Mgr: JESSY OWENS ([id number])[facility])[address] [place] [address] Monocytes (Bld) [#/Vol] 0.5 10*3/uL Normal 0.0-0.9 [facility] Comment on above: Performed By: #### L [id number] ####Systems Mgr: JESSY OWENS ([id number])[facility])[address] [place] [address] Monocytes/100 WBC (Bld) 6.5 % Normal 5.0-13.0 [facility] Comment on above: Performed By: #### L [id number] ####Systems Mgr: JESSY OWENS ([id number])[facility])[address] [place] [address] NEUTROPHILS ABSOLUTE 4.8 10*3/uL Normal 1.8-7.5 [facility] Comment on above: Performed By: #### L [id number] ####Systems Mgr: JESSY OWENS ([id number])[facility])[address] [place] [address] Neutrophils/100 WBC (Bld) 69.2 % Normal 38.0-82.0 [facility] Comment on above: Performed By: #### L [id number] ####Systems Mgr: JESSY OWENS ([id number])[facility] ([facility])[address] [place] [address] NRBC 0.6 /100 WBCs Normal 0.0-2.0 [facility] Comment on above: Performed By: #### L [id number] ####Systems Mgr: JESSY OWENS ([id number])[facility] ([facility])[address] [place] [address] Platelet mean volume (Bld) [Entitic vol] 10.9 fL Normal 9.0-12.7 [facility] Comment on above: Performed By: #### L [id number] ####Systems Mgr: JESSY OWENS ([id number])[facility] ([facility])[address] [place] [address] Platelets (Bld) [#/Vol] 60 10*3/uL Low 140-440 [facility] Comment on above: Performed By: #### L [id number] ####Systems Mgr: JESSY OWENS ([id number])[facility] ([facility])[address] [place] [address] RBC (Bld) [#/Vol] 2.24 10*6/uL Low 3.80-5.20 [facility] Comment on above: Performed By: #### L [id number] ####Systems Mgr: JESSY OWENS ([id number])[facility] ([facility])[address] [place] [address] WBC (Bld) [#/Vol] 6.9 10*3/uL Normal 3.6-10.7 [facility] Comment on above: Performed By: #### L [id number] ####Systems Mgr: JESSY OWENS ([id number])[facility])[address] [place] [address] Calcium.ionized [Moles/Vol]O rdered By: Ari Chan on 12-01-2024 Calcium.ionized (Bld) [Moles/Vol] 4.6 mg/dL 4.30 - 5.20 mg/dL [facility] Interpretation and review of laboratory results Abnormal [facility] PH, IONIZED CALCIUM 7.48 High 7.31 - 7.46 [facility] Consulton 12-01-2024 Consult Normal [facility] Laboratory - Chemistry and C hemistry - challengeon 12-01-2024 Glucose [Mass/Vol] 113 mg/dL High 70 - 100 mg/dL [facility] Glucose [Mass/Vol] 139 mg/dL High 70 - 100 mg/dL [facility] Glucose [Mass/Vol] 96 mg/dL 70 - 100 mg/dL [facility] Glucose [Mass/Vol] 73 mg/dL 70 - 100 mg/dL [facility] Magnesium [Mass/Vol] 2 mg/dL 1.6 - 2 .6 mg/dL [facility] MAGNESIUMon 12-01-2024 Magnesium [Mass/Vol] 2.0 mg/dL Normal 1.6-2.6 [facility] Comment on above: Result Comment: TANA Wick COMMENTS:Higher values can be expected in females during menses. Performed By: #### L [id number], [id number] ####Systems Mgr: JESSY OWENS ([id number])[address] Magnesium [Mass/Vol]on 12-01 [facility] No Panel Informationon 12-01 Interpretation and review of laboratory results Abnormal [facility] Interpretation and review of laboratory results Abnormal [facility] Interpretation and review of laboratory results Normal [facility] Interpretation and review of laboratory results Normal [facility] Interpretation and review of laboratory results Normal [facility] PHOSPHORUSon 12-01-2024 Phosphate [Mass/Vol] 2.7 mg/dL Normal 2.3-4.7 [facility] Comment on above: Performed By: #### L [id number], [id number] ####Systems Mgr: JESSY OWENS ([id number])[facility] ([facility])[address] [place] [address] [place] Phosphate [Moles/Vol]on 11-17 Phosphate [Mass/Vol] 2.7 mg/dL 2.3 - 4 .7 mg/dL [facility] Progress Noteon 12-01-2024 Progress Note Normal [facility] Progress Note Normal [facility] Progress Note Normal [facility] 30on 11-30-2024 30 Normal [facility] 30 Normal [facility] [id number] 11-30-2024 [id number] Normal [facility] BASIC METABOLIC PANELon 11-17 Anion gap [Moles/Vol] 11 mmol/L Normal 3-13 [facility] Comment on above: Performed By: #### L AB15 ####Systems Mgr: JESSY OWENS ([id number])[facility] ([facility])[address] [place] [address] [place] Calcium [Mass/Vol] 9.2 mg/dL Normal 8.8-10.0 [facility] Comment on above: Performed By: #### L AB15 ####Systems Mgr: JESSY OWENS ([id number])[facility] ([facility])[address] [place] [address] [place] Chloride [Moles/Vol] 108 mmol/L High 98-107 [facility] Comment on above: Performed By: #### L AB15 ####Systems Mgr: JESSY OWENS ([id number])[facility] ([facility])[address] [place] [address] [place] CO2 [Moles/Vol] 24 mmol/L Normal 23-31 [facility] Comment on above: Performed By: #### L AB15 ####Systems Mgr: JESSY OWENS ([id number])[facility] ([facility])[address] [place] [address] [place] Creatinine [Mass/Vol] 0.63 mg/dL Normal 0.57-1.11 [facility] Comment on above: Performed By: #### L AB15 ####Systems Mgr: JESSY OWENS ([id number])[facility] ([facility])[address] [place] [address] GLOMERULAR FILTRATION RATE ML/MIN/1.73 SQ M.PREDICTED >90.0 Normal >60.0 [facility] Comment on above: Result Comment: Calc ulation based on the Chronic Kidney Disease Epidemiology Collaboration (CKD-EPI) equation refit without adjustment for race Performed By: #### L AB15 ####Systems Mgr: JESSY OWENS ([id number])[facility])[address] [place] [address] Glucose [Mass/Vol] 82 mg/dL Normal 82-115 [facility] Comment on above: Performed By: #### L AB15 ####Systems Mgr: JESSY OWENS ([phone])[address] Potassium [Moles/Vol] 2.3 mmol/L Critically low 3.5-5.1 [facility] Comment on above: Result Comment: [facility] potassium values may be up to 0.5 mmol/L lower than serum values. Performed By: #### L AB15 ####Systems Mgr: JESSY OWENS ([id number])[facility] ([facility])[address] [place] [address] Sodium [Moles/Vol] 143 mmol/L Normal 136-145 [facility] Comment on above: Performed By: #### L AB15 ####Systems Mgr: JESSY OWENS ([id number])[facility])[address] [place] [address] Urea nitrogen [Mass/Vol] 12 mg/dL Normal 9-23 [facility] Comment on above: Performed By: #### L AB15 ####Systems Mgr: JESSY OWENS ([id number])[facility])[address] [place] [address] Anion gap [Moles/Vol] 6 mmol/L Normal 3-13 [facility] Comment on above: Performed By: #### L AB15 ####Systems Mgr: JESSY [id number])[facility])[address] [place] [address] Calcium [Mass/Vol] 8.7 mg/dL Low 8.8-10.0 [facility] Comment on above: Performed By: #### L AB15 ####Systems Mgr: JESSY OWENS ([id number])[facility] [place] [address] [place] Chloride [Moles/Vol] 112 mmol/L High 98-107 [facility] Comment on above: Performed By: #### L AB15 ####Systems Mgr: JESSY OWENS ([id number])[facility] ([facility])[address] [place] [address] CO2 [Moles/Vol] 22 mmol/L Low 23-31 [facility] Comment on above: Performed By: #### L AB15 ####Systems Mgr: JESSY OWENS ([id number])[facility] ([facility])[address] [place] [address] Creatinine [Mass/Vol] 0.57 mg/dL Normal 0.57-1.11 [facility] Comment on above: Performed By: #### L AB15 ####Systems Mgr: JESSY OWENS ([id number])[facility] ([facility])[address] [place] [address] GLOMERULAR FILTRATION RATE ML/MIN/1.73 SQ M.PREDICTED >90.0 Normal >60.0 [facility] Comment on above: Result Comment: Calc ulation based on the Chronic Kidney Disease Epidemiology Collaboration (CKD-EPI) equation refit without adjustment for race Performed By: #### L AB15 ####Systems Mgr: JESSY OWENS ([id number])[facility] ([facility])[address] [place] [address] [place] Glucose [Mass/Vol] 112 mg/dL Normal 82-115 [facility] Comment on above: Performed By: #### L AB15 ####Systems Mgr: JESSY OWENS ([id number])[facility] ([facility])[address] [place] [address] [place] Potassium [Moles/Vol] 3.0 mmol/L Low 3.5-5.1 [facility] Comment on above: Result Comment: [facility] potassium values may be up to 0.5 mmol/L lower than serum values. Performed By: #### L AB15 ####Systems Mgr: JESSY OWENS ([id number])[facility] [place] [address] Sodium [Moles/Vol] 140 mmol/L Normal 136-145 [facility] Comment on above: Performed By: #### L AB15 ####Systems Mgr: JESSY OWENS ([id number])[facility] [place] [address] Urea nitrogen [Mass/Vol] 13 mg/dL Normal 9-23 [facility] Comment on above: Performed By: #### L AB15 ####Systems Mgr: JESSY OWENS ([id number])[facility] [place] [address] Anion gap [Moles/Vol] 8 mmol/L Normal 3-13 [facility] Comment on above: Performed By: #### L AB113, LAB15, [id number] ####Systems Mgr: JESSY OWENS ([id number])[facility] [place] [address] Calcium [Mass/Vol] 8.6 mg/dL Low 8.8-10.0 [facility] Comment on above: Performed By: #### L AB113, LAB15, [id number] ####Systems Mgr: JESSY OWENS ([id number])[facility] [place] [address] [place] Chloride [Moles/Vol] 110 mmol/L High 98-107 [facility] Comment on above: Performed By: #### L AB113, LAB15, [id number] ####Systems Mgr: JESSY OWENS ([id number])[facility] [place] [address] [place] CO2 [Moles/Vol] 20 mmol/L Low 23-31 [facility] Comment on above: Performed By: #### L AB113, LAB15, [id number] ####Systems Mgr: JESSY OWENS ([id number])[facility])[address] [place] [address] Creatinine [Mass/Vol] 0.55 mg/dL Low 0.57-1.11 [facility] Comment on above: Performed By: #### L AB113, LAB15, [id number] ####Systems Mgr: JESSY OWENS ([id number])[facility])[address] [place] [address] GLOMERULAR FILTRATION RATE ML/MIN/1.73 SQ M.PREDICTED >90.0 Normal >60.0 [facility] Comment on above: Result Comment: Calc ulation based on the Chronic Kidney Disease Epidemiology Collaboration (CKD-EPI) equation refit without adjustment for race Performed By: #### L AB113, LAB15, [id number] ####Systems Mgr: JESSY OWENS ([id number])[facility])[address] [place] [address] Glucose [Mass/Vol] 112 mg/dL Normal 82-115 [facility] Comment on above: Performed By: #### L AB113, LAB15, [id number] ####Systems Mgr: JESSY OWENS ([id number])[address] Potassium [Moles/Vol] 3.4 mmol/L Low 3.5-5.1 [facility] Comment on above: Result Comment: [facility] potassium values may be up to 0.5 mmol/L lower than serum values. Performed By: #### L AB113, LAB15, [id number] ####Systems Mgr: JESSY OWENS ([phone])[facility])[address] [place] [address] Sodium [Moles/Vol] 138 mmol/L Normal 136-145 [facility] Comment on above: Performed By: #### L AB113, LAB15, [id number] ####Systems Mgr: JESSY OWENS ([id number])[facility] [place] [address] Urea nitrogen [Mass/Vol] 15 mg/dL Normal 9-23 [facility] Comment on above: Performed By: #### L AB113, LAB15, [id number] ####Systems Mgr: JESSY OWENS ([id number])[facility] ([facility])[address] [place] [address] Bacteria identified Anaer cx Nom (Unsp spec)Ordered By: Michael Rosario on 11-30-2024 Interpretation and review of laboratory results Abnormal [facility] Basic metabolic 1998 panelon 11-30-2024 Anion gap [Moles/Vol] 11 mmol/L 3 - 13 mmol/L [facility] Calcium [Mass/Vol] 9.2 mg/dL 8.8 - 10. 0 mg/dL [facility] Chloride [Moles/Vol] 108 mmol/L High 98 - 10 7 mmol/L [facility] CO2 [Moles/Vol] 24 mmol/L 23 - 31 mmol/L [facility] Creatinine [Mass/Vol] 0.63 mg/dL 0.57 - 1.11 mg/dL [facility] GFR/1.73 sq M.predicted (S/P/Bld) [Vol rate/Area] - PINF [facility] Glucose [Mass/Vol] 82 mg/dL 82 - 115 mg/dL [facility] Interpretation and review of laboratory results Abnormal [facility] Potassium [Moles/Vol] 2.3 mmol/L Critically low 3.5 - 5.1 mmol/L [facility] Sodium [Moles/Vol] 143 mmol/L 136 - 145 mmol/L [facility] Urea nitrogen [Mass/Vol] 12 mg/dL 9 - 23 mg/d L [facility] Anion gap [Moles/Vol] 6 mmol/L 3 - 13 mmol/L [facility] Calcium [Mass/Vol] 8.7 mg/dL Low 8.8 - 10. 0 mg/dL [facility] Chloride [Moles/Vol] 112 mmol/L High 98 - 10 7 mmol/L [facility] CO2 [Moles/Vol] 22 mmol/L Low 23 - 31 mmol/L [facility] Creatinine [Mass/Vol] 0.57 mg/dL 0.57 - 1.11 mg/dL [facility] GFR/1.73 sq M.predicted (S/P/Bld) [Vol rate/Area] - PINF [facility] Glucose [Mass/Vol] 112 mg/dL 82 - 115 mg/dL [facility] Interpretation and review of laboratory results Abnormal [facility] Potassium [Moles/Vol] 3 mmol/L Low 3.5 - 5.1 mmol/L [facility] Sodium [Moles/Vol] 140 mmol/L 136 - 145 mmol/L [facility] Urea nitrogen [Mass/Vol] 13 mg/dL 9 - 23 mg/d L [facility] Anion gap [Moles/Vol] 8 mmol/L 3 - 13 mmol/L [facility] Calcium [Mass/Vol] 8.6 mg/dL Low 8.8 - 10. 0 mg/dL [facility] Chloride [Moles/Vol] 110 mmol/L High 98 - 10 7 mmol/L [facility] CO2 [Moles/Vol] 20 mmol/L Low 23 - 31 mmol/L [facility] Creatinine [Mass/Vol] 0.55 mg/dL Low 0.57 - 1.11 mg/dL [facility] GFR/1.73 sq M.predicted (S/P/Bld) [Vol rate/Area] - PINF [facility] Glucose [Mass/Vol] 112 mg/dL 82 - 115 mg/dL [facility] Interpretation and review of laboratory results Abnormal [facility] Potassium [Moles/Vol] 3.4 mmol/L Low 3.5 - 5.1 mmol/L [facility] Sodium [Moles/Vol] 138 mmol/L 136 - 145 mmol/L [facility] Urea nitrogen [Mass/Vol] 15 mg/dL 9 - 23 mg/d L [facility] CALCIUM, IONIZEDon 5 CALCIUM IONIZED 4.70 mg/dL Normal 4.30-5.20 [facility] Comment on above: Performed By: #### L [id number] ####Systems Mgr: JESSY OWENS ([phone])[facility] ([address] PH, IONIZED CALCIUM 7.48 High 7.31-7.46 [facility] Comment on above: Performed By: #### L [id number] ####Systems Mgr: JESSY OWENS ([phone])[facility] ([facility])[address] [place] [address] CBC W Auto Differential pane l (Bld)on 11-30-2024 Erythrocyte distribution width (RBC) [Ratio] 15.9 % High 11.5 - 15.0 % [facility] Hematocrit (Bld) [Volume fraction] 24.7 % Low 35.0 - 47.0 % [facility] Hemoglobin (Bld) [Mass/Vol] 8 g/dL Low 11.7 - 16.0 g/dL [facility] [facility] Interpretation and review of laboratory results Abnormal [facility] IPF 4 [facility] MCH (RBC) [Entitic mass] 33.2 pg 26. 0 - 34.0 pg [facility] MCHC (RBC) [Mass/Vol] 32.4 % 30.5 - 36.0 % [facility] MCV (RBC) [Entitic vol] 102.5 fL High 77.0 - 99.0 fL [facility] Platelet mean volume (Bld) [Entitic vol] 9.9 fL 9.0 - 12.7 fL [facility] Platelets (Bld) [#/Vol] 61 10*3/uL Low 140 - 440 10*3/uL [facility] RBC (Bld) [#/Vol] 2.41 10*6/uL Low 3.80 - 5.2 0 10*6/uL [facility] WBC (Bld) [#/Vol] 7.6 10*3/uL 3.6 - 10.7 10*3/uL [facility] CBC WITH AUTO DIFFERENTIALon 11-30-2024 Erythrocyte distribution width (RBC) [Ratio] 15.9 % High 11.5-15.0 [facility] Comment on above: Performed By: #### L [id number], [id number] ####Systems Mgr: JESSY OWENS ([phone])[facility] [place] [address] Hematocrit (Bld) [Volume fraction] 24.7 % Low 35.0-47.0 [facility] Comment on above: Performed By: #### L [id number], [id number] ####Systems Mgr: JESSY [phone])[facility])[address] [place] [address] Hemoglobin (Bld) [Mass/Vol] 8.0 g/dL Low 11.7-16.0 [facility] Comment on above: Performed By: #### L [id number], [id number] ####Systems Mgr: JESSY OWENS ([id number])[facility])[address] [place] [address] IPF 4 Normal [facility] Comment on above: Performed By: #### L [id number], [id number] ####Systems Mgr: JESSY OWENS ([id number])[facility])[address] [place] [address] MCH (RBC) [Entitic mass] 33.2 pg Normal 26.0-34.0 [facility] Comment on above: Performed By: #### L [id number], [id number] ####Systems Mgr: JESSY OWENS ([phone])[facility])[address] [place] [address] MCHC 32.4 % Normal 30.5-36.0 [facility] Comment on above: Performed By: #### L [id number], [id number] ####Systems Mgr: JESSY OWENS ([phone])[facility])[address] [place] [address] MCV (RBC) [Entitic vol] 102.5 fL High 77.0-99.0 [facility] Comment on above: Performed By: #### L [id number], [id number] ####Systems Mgr: JESSY OWENS ([phone])[facility])[address] [place] [address] Platelet mean volume (Bld) [Entitic vol] 9.9 fL Normal 9.0-12.7 [facility] Comment on above: Performed By: #### L [id number], [id number] ####Systems Mgr: JESSY OWENS ([phone])[facility])[address] [place] [address] Platelets (Bld) [#/Vol] 61 10*3/uL Low 140-440 [facility] Comment on above: Performed By: #### L [id number], [id number] ####Systems Mgr: JESSY OWENS ([id number])[facility])[address] [place] [address] RBC (Bld) [#/Vol] 2.41 10*6/uL Low 3.80-5.20 [facility] Comment on above: Performed By: #### L [id number], [id number] ####Systems Mgr: JESSY OWENS ([phone])[facility])[address] [place] [address] WBC (Bld) [#/Vol] 7.6 10*3/uL Normal 3.6-10.7 [facility] Comment on above: Performed By: #### L [id number], [id number] ####Systems Mgr: JESSY OWENS ([id number])[facility] ([facility])[address] [place] [address] Calcium.ionized [Moles/Vol]O rdered By: Lucien Madrigal on 11-30-2024 Calcium.ionized (Bld) [Moles/Vol] 4.7 mg/dL 4.30 - 5.20 mg/dL [facility] Interpretation and review of laboratory results Abnormal [facility] PH, IONIZED CALCIUM 7.48 High 7.31 - 7.46 [facility] Laboratory - Chemistry and C hemistry - challengeon 11-30-2024 Magnesium [Mass/Vol] 1.9 mg/dL 1.6 - 2 .6 mg/dL [facility] Laboratory - Hematology and Cell countson 11-30-2024 Anisocytosis Ql (Bld) Slight Abnormal (none) [facility] Band form neutrophils (Bld) [#/Vol] 0.3 10*3/uL High NINF - 0.0 10*3/uL [facility] Band form neutrophils/100 WBC (Bld) 4 % High NINF - 0 % [facility] Lymphocytes (Bld) [#/Vol] 0.6 10*3/uL Low 1.0 - 4.3 10*3/uL [facility] Lymphocytes/100 WBC (Bld) 8 % Low 15 - 45 % [facility] Macrocytes Ql (Bld) Slight Abnormal (none) [facility] Metamyelocytes (Bld) [#/Vol] 0.2 10*3/uL High NINF - 0.0 10*3/uL [facility] Metamyelocytes/100 WBC (Bld) 2 % High NINF - 0 % [facility] Monocytes (Bld) [#/Vol] 0.5 10*3/uL 0.0 - 0.9 10*3/uL [facility] Monocytes/100 WBC (Bld) 6 % 5 - 13 % [facility] Myelocytes (Bld) [#/Vol] 0.1 10*3/uL High BRITTANI F - 0.0 10*3/uL [facility] Myelocytes/100 WBC (Bld) 1 % High NINF - 0 % [facility] Neutrophils (Bld) [#/Vol] 6.4 10*3/uL 1.8 - 7.5 10*3/uL [facility] Nucleated RBC/100 WBC (Bld) [Ratio] 4 % High 0 - 2 % [facility] RBC morphology finding Nom (Bld) abnormal [facility] Segmented neutrophils/100 WBC (Bld) 80 % 38 - 82 % [facility] Laboratory - Microbiology an d Antimicrobial susceptibilityOrdered By: Michael Rosario on 11-30-2024 Bacteria identified Anaer cx Nom (Unsp spec) Mixed aerobic and anaerobic bacteria present. [facility] Bacteria identified Anaer cx Nom (Unsp spec) Many Bacteroides fragilis Abnormal [facility] MAGNESIUMon 11-30-2024 Magnesium [Mass/Vol] 1.9 mg/dL Normal 1.6-2.6 [facility] Comment on above: Result Comment: ORDE R COMMENTS:Higher values can be expected in females during menses. Performed By: #### L AB113, LAB15, [id number] ####Systems Mgr: JESSY OWENS ([phone])[facility] ([address] MANUAL DIFFERENTIAL (CELLAVI ZOIE)on 11-30-2024 ANISOCYTOSIS PRESENCE IN BLOOD BY LIGHT MICROSCOPY Slight Abnormal (none) [facility] Comment on above: Performed By: #### L [id number], [id number] ####Systems Mgr: JESSY OWENS ([id number])[facility] ([facility])[address] [place] [address] BAND NEUTROPHILS TOTAL PER COUNTED LEUKOCYTES BY MANUAL COUNT [address] [place] [address] Comment on above: Performed By: #### L [id number], [id number] ####Systems Mgr: JESSY OWENS ([id number])[facility] ([facility])[address] [place] [address] [place] BANDS (10*3/UL) IN BLOOD-CELLAVISION 0.3 10*3/uL High <=0.0 [facility] Comment on above: Performed By: #### L [id number], [id number] ####Systems Mgr: JESSY OWENS ([phone])[facility] ([facility])[address] [place] [address] BASOPHILS TOTAL PER COUNTED LEUKOCYTES BY MANUAL COUNT [facility] Comment on above: Performed By: #### L [id number], [id number] ####Systems Mgr: JESSY OWENS ([id number])[facility] ([facility])[address] [place] [address] BLASTS TOTAL PER COUNTED LEUKOCYTES BY MANUAL COUNT [facility] Comment on above: Performed By: #### L [id number], [id number] ####Systems Mgr: JESSY OWENS ([id number])[facility])[address] [place] [address] EOSINOPHILS TOTAL PER COUNTED LEUKOCYTES BY MANUAL COUNT [facility] Comment on above: Performed By: #### L [id number], [id number] ####Systems Mgr: JESSY OWENS ([id number])[facility])[address] [place] [address] [place] LYMPHOCYTES (10*3/UL) IN BLOOD-CELLAVISION 0.6 10*3/uL Low 1.0-4.3 [facility] Comment on above: Performed By: #### L [id number], [id number] ####Systems Mgr: JESSY [id number])[facility] ([facility])[address] [place] [address] [place] LYMPHOCYTES TOTAL PER COUNTED LEUKOCYTES BY MANUAL COUNT 8 Normal [facility] Comment on above: Performed By: #### L [id number], [id number] ####Systems Mgr: JESSY OWENS ([id number])[facility] ([facility])[address] [place] [address] [place] LYMPHOCYTES/100 LEUKOCYTES IN BLOOD-CELLAVISION 8 % Low 15-45 [facility] Comment on above: Performed By: #### L [id number], [id number] ####Systems Mgr: JESSY OWENS ([phone])[facility] ([facility])[address] [place] [address] [place] MACROCYTES (PRESENCE) IN BLOOD BY LIGHT MICROSCOPY Slight Abnormal (none) [facility] Comment on above: Performed By: #### L [id number], [id number] ####Systems Mgr: JESSY OWENS ([id number])[facility] ([facility])[address] [place] [address] [place] METAMYELOCYTES (10*3/UL) IN BLOOD-CELLAVISION 0.2 10*3/uL High <=0.0 [facility] Comment on above: Performed By: #### L [id number], [id number] ####Systems Mgr: JESSY OWENS ([phone])[facility] ([facility])[address] [place] [address] [place] METAMYELOCYTES TOTAL PER COUNTED LEUKOCYTES BY MANUAL COUNT 2 Normal [facility] Comment on above: Performed By: #### L [id number], [id number] ####Systems Mgr: JESSY OWENS ([id number])[facility] ([facility])[address] [place] [address] [place] METAMYELOCYTES/100 LEUKOCYTES IN BLOOD-CELLAVISION 2 % High <=0 [facility] Comment on above: Performed By: #### L [id number], [id number] ####Systems Mgr: JESSY OWENS ([id number])[facility] ([facility])[address] [place] [address] [place] MONOCYTES (10*3/UL) IN BLOOD-CELLAVISION 0.5 10*3/uL Normal 0.0-0.9 [facility] Comment on above: Performed By: #### L [id number], [id number] ####Systems Mgr: JESSY OWENS ([id number])[facility] ([facility])[address] [place] [address] [place] MONOCYTES TOTAL PER COUNTED LEUKOCYTES BY MANUAL COUNT 6 Normal [facility] Comment on above: Performed By: #### L [id number], [id number] ####Systems Mgr: JESSY OWENS ([id number])[facility] ([facility])[address] [place] [address] [place] MONOCYTES/100 LEUKOCYTES IN BLOOD-GIRMA 6 % Normal 5-13 [facility] Comment on above: Performed By: #### L [id number], [id number] ####Systems Mgr: JESSY OWENS ([phone])[facility] ([facility])[address] [place] [address] [place] MYELOCYTES (10*3/UL) IN BLOOD-CELLAVISION 0.1 10*3/uL High <=0.0 [facility] Comment on above: Performed By: #### L [id number], [id number] ####Systems Mgr: JESSY OWENS ([id number])[facility] ([facility])[address] [place] [address] [place] MYELOCYTES COUNTED BY MANUAL COUNT 1 Normal [facility] Comment on above: Performed By: #### L [id number], [id number] ####Systems Mgr: JESSY OWENS ([id number])[facility])[address] [place] [address] [place] MYELOCYTES/100 LEUKOCYTES IN BLOOD-CELLAVISION 1 % High <=0 [facility] Comment on above: Performed By: #### L [id number], [id number] ####Systems Mgr: JESSY [id number])[facility] ([facility])[address] [place] [address] [place] NEUTROPHILS BAND FORM/100 LEUKOCYTES IN BLOOD-CELLAVISI 4 % High <=0 [facility] Comment on above: Performed By: #### L [id number], [id number] ####Systems Mgr: JESSY OWENS ([phone])[facility] ([facility])[address] [place] [address] [place] NEUTROPHILS TOTAL PER COUNTED LEUKOCYTES BY MANUAL COUNT 83 Normal [facility] Comment on above: Performed By: #### L [id number], [id number] ####Systems Mgr: JESSY OWENS ([id number])[facility] ([facility])[address] [place] [address] [place] NUCLEATED ERYTHROCYTES/100 LEUKOCTES IN BLOOD-CELLAVISION 4 % High 0-2 [facility] Comment on above: Performed By: #### Davidson [id number], [id number] ####Systems Mgr: JESSY OWENS ([id number])[facility] ([facility])[address] [place] [address] [place] PROMYELOCYTES TOTAL PER COUNTED LEUKOCYTES BY MANUAL COUNT Normal [facility] Comment on above: Performed By: #### Davidson TR0472, [id number] ####Systems Mgr: JESSY OWENS ([id number])[facility] ([facility])[address] [place] [address] [place] RBC MORPHOLOGY IN BLOOD abnormal Normal [facility] Comment on above: Performed By: #### L [id number], [id number] ####Systems Mgr: JESYS OWENS ([id number])[facility] ([facility])[address] [place] [address] [place] SEGMENTED NEUTROPHILS (10*3/UL) IN BLOOD-CELLAVISION 6.4 10*3/uL Normal 1.8-7.5 [facility] Comment on above: Performed By: #### L [id number], [id number] ####Systems Mgr: JESSY OWENS ([phone])[facility] ([facility])[address] [place] [address] [place] SEGMENTED NEUTROPHILS/100 LEUKOCYTES-CE 80 % Normal 38-82 [facility] Comment on above: Performed By: #### L [id number], [id number] ####Systems Mgr: JESSY OWENS ([phone])[facility])[address] [place] [address] UNCLASSIFIED CELLS TOTAL PER COUNTED LEUKOCYTES BY MANUAL COUNT Normal [facility] Comment on above: Performed By: #### L [id number], [id number] ####Systems Mgr: JESSY OWENS ([phone])[facility])[address] [place] [address] VARIANT LYMPHOCYTES TOTAL PER COUNTED LEUKOCYTES BY MANUAL COUNT Normal [facility] Comment on above: Performed By: #### L [id number], [id number] ####Systems Mgr: JESSY OWENS ([id number])[facility])[address] [place] [address] Magnesium [Mass/Vol]on 11-30 [facility] No Panel Informationon 11-30 Bands Manual 4 [facility] Interpretation and review of laboratory results Abnormal [facility] Lymphocytes Manual 8 [facility] Metamyelocytes Manual 2 [facility] Monocytes Manual 6 [facility] Myelocytes Manual 1 [facility] ealt Neutrophils Manual 83 [facility] Interpretation and review of laboratory results Normal [facility] PHOSPHORUSon 11-30-2024 Phosphate [Mass/Vol] 2.6 mg/dL Normal 2.3-4.7 [facility] Comment on above: Performed By: #### L AB113, LAB15, [id number] ####Systems Mgr: JESSY OWENS ([phone])[facility] ([facility])[address] [place] [address] [place] Phosphate [Moles/Vol]on 11-17 Phosphate [Mass/Vol] 2.6 mg/dL 2.3 - 4 .7 mg/dL [facility] Progress Noteon 11-30-2024 Progress Note Normal [facility] Progress Note Normal [facility] Progress Note Normal [facility] Progress Note Normal [facility] Progress Note Normal [facility] Progress Note Normal [facility] 30on 11-29-2024 30 Normal [facility] 30 Normal [facility] [id number] 11-29-2024 [id number] Normal [facility] [id number] Normal [facility] BASIC METABOLIC PANELon 11-17 Anion gap [Moles/Vol] 6 mmol/L Normal 09-29 [facility] Comment on above: Performed By: #### L AB103, [id number], LAB15 ####Systems Mgr: JESSY OWENS ([id number])[facility])[address] [place] [address] Calcium [Mass/Vol] 8.6 mg/dL Low 8.8-10.0 [facility] Comment on above: Performed By: #### L AB103, [id number], LAB15 ####Systems Mgr: JESSY OWENS ([phone])[facility] ([facility])[address] [place] [address] Chloride [Moles/Vol] 110 mmol/L High 98-107 [facility] Comment on above: Performed By: #### L AB103, [id number], LAB15 ####Systems Mgr: JESSY OWENS ([id number])[facility] [place] [address] CO2 [Moles/Vol] 22 mmol/L Low 23-31 [facility] Comment on above: Performed By: #### L AB103, [id number], LAB15 ####Systems Mgr: JESSY OWENS ([id number])[facility] [place] [address] Creatinine [Mass/Vol] 0.53 mg/dL Low 0.57-1.11 [facility] Comment on above: Performed By: #### L AB103, [id number], LAB15 ####Systems Mgr: JESSY OWENS ([id number])[facility] ([facility])[address] [place] [address] GLOMERULAR FILTRATION RATE ML/MIN/1.73 SQ M.PREDICTED >90.0 Normal >60.0 [facility] Comment on above: Result Comment: Calc ulation based on the Chronic Kidney Disease Epidemiology Collaboration (CKD-EPI) equation refit without adjustment for race Performed By: #### L AB103, [id number], LAB15 ####Systems Mgr: JESSY OWENS ([id number])[facility] [place] [address] Glucose [Mass/Vol] 110 mg/dL Normal 82-115 [facility] Comment on above: Performed By: #### Davidson AB103, [id number], LAB15 ####Systems Mgr: JESSY OWESN ([id number])[facility] ([facility])[address] [place] [address] Potassium [Moles/Vol] 3.7 mmol/L Normal 3.5-5.1 [facility] Comment on above: Result Comment: [facility] potassium values may be up to 0.5 mmol/L lower than serum values. Performed By: #### Davidson AB103, [id number], LAB15 ####Systems Mgr: JESSY OWENS ([phone])[facility] [place] [address] [place] Sodium [Moles/Vol] 138 mmol/L Normal 136-145 [facility] Comment on above: Performed By: #### Davidson AB103, [id number], LAB15 ####Systems Mgr: JESSY OWENS ([id number])[facility] ([facility])[address] [place] [address] [place] Urea nitrogen [Mass/Vol] 11 mg/dL Normal 9-23 [facility] Comment on above: Performed By: #### L AB103, [id number], LAB15 ####Systems Mgr: JESSY OWENS ([phone])[facility] ([facility])[address] [place] [address] [place] Anion gap [Moles/Vol] 6 mmol/L Normal 3-13 [facility] Comment on above: Performed By: #### L AB113, LAB15, [id number] ####Systems Mgr: JESSY OWENS ([phone])[facility] ([facility])[address] [place] [address] [place] Calcium [Mass/Vol] 8.4 mg/dL Low 8.8-10.0 [facility] Comment on above: Performed By: #### L AB113, LAB15, [id number] ####Systems Mgr: JESSY OWENS ([id number])[facility] [place] [address] [place] Chloride [Moles/Vol] 109 mmol/L High 98-107 [facility] Comment on above: Performed By: #### L AB113, LAB15, [id number] ####Systems Mgr: JESSY OWENS ([id number])[facility] [place] [address] [place] CO2 [Moles/Vol] 22 mmol/L Low 23-31 [facility] Comment on above: Performed By: #### Davidson AB113, LAB15, [id number] ####Systems Mgr: JESSY OWENS ([phone])[facility] ([facility])[address] [place] [address] Creatinine [Mass/Vol] 0.53 mg/dL Low 0.57-1.11 [facility] Comment on above: Performed By: #### Davidson AB113, LAB15, [id number] ####Systems Mgr: JESSY OWENS ([phone])[facility])[address] [place] [address] [place] GLOMERULAR FILTRATION RATE ML/MIN/1.73 SQ M.PREDICTED >90.0 Normal >60.0 [facility] Comment on above: Result Comment: Calc ulation based on the Chronic Kidney Disease Epidemiology Collaboration (CKD-EPI) equation refit without adjustment for race Performed By: #### L AB113, LAB15, [id number] ####Systems Mgr: JESSY OWENS ([phone])[facility] ([facility])[address] [place] [address] [place] Glucose [Mass/Vol] 108 mg/dL Normal 82-115 [facility] Comment on above: Performed By: #### L AB113, LAB15, [id number] ####Systems Mgr: JESSY [id number])[facility] ([facility])[address] [place] [address] Potassium [Moles/Vol] 3.6 mmol/L Normal 3.5-5.1 [facility] Comment on above: Result Comment: [facility] potassium values may be up to 0.5 mmol/L lower than serum values. Performed By: #### L AB113, LAB15, [id number] ####Systems Mgr: JESSY OWENS ([id number])[facility] [place] [address] Sodium [Moles/Vol] 137 mmol/L Normal 136-145 [facility] Comment on above: Performed By: #### L AB113, LAB15, [id number] ####Systems Mgr: JESSY OWENS ([phone])[facility] ([facility])[address] [place] [address] Urea nitrogen [Mass/Vol] 12 mg/dL Normal 9-23 [facility] Comment on above: Performed By: #### L AB113, LAB15, [id number] ####Systems Mgr: JESSY OWENS ([id number])[facility] ([facility])[address] [place] [address] Bacteria identified Cx Nom ( Bld)on 11-29-2024 Interpretation and review of laboratory results Normal [facility] Basic metabolic 1998 panelon 11-29-2024 Anion gap [Moles/Vol] 6 mmol/L 3 - 13 mmol/L [facility] Calcium [Mass/Vol] 8.6 mg/dL Low 8.8 - 10. 0 mg/dL [facility] Chloride [Moles/Vol] 110 mmol/L High 98 - 10 7 mmol/L [facility] CO2 [Moles/Vol] 22 mmol/L Low 23 - 31 mmol/L [facility] Creatinine [Mass/Vol] 0.53 mg/dL Low 0.57 - 1.11 mg/dL [facility] GFR/1.73 sq M.predicted (S/P/Bld) [Vol rate/Area] - PINF [facility] Glucose [Mass/Vol] 110 mg/dL 82 - 115 mg/dL [facility] Interpretation and review of laboratory results Abnormal [facility] Potassium [Moles/Vol] 3.7 mmol/L 3.5 - 5.1 mmol/L [facility] Sodium [Moles/Vol] 138 mmol/L 136 - 145 mmol/L [facility] Urea nitrogen [Mass/Vol] 11 mg/dL 9 - 23 mg/d L [facility] Anion gap [Moles/Vol] 6 mmol/L 3 - 13 mmol/L [facility] Calcium [Mass/Vol] 8.4 mg/dL Low 8.8 - 10. 0 mg/dL [facility] Chloride [Moles/Vol] 109 mmol/L High 98 - 10 7 mmol/L [facility] CO2 [Moles/Vol] 22 mmol/L Low 23 - 31 mmol/L [facility] Creatinine [Mass/Vol] 0.53 mg/dL Low 0.57 - 1.11 mg/dL [facility] GFR/1.73 sq M.predicted (S/P/Bld) [Vol rate/Area] - PINF [facility] Glucose [Mass/Vol] 108 mg/dL 82 - 115 mg/dL [facility] Potassium [Moles/Vol] 3.6 mmol/L 3.5 - 5.1 mmol/L [facility] Sodium [Moles/Vol] 137 mmol/L 136 - 145 mmol/L [facility] Urea nitrogen [Mass/Vol] 12 mg/dL 9 - 23 mg/d L [facility] CALCIUM, IONIZEDon CALCIUM IONIZED 4.60 mg/dL Normal 4.30-5.20 [facility] Comment on above: Performed By: #### [id number] ####Systems Mgr: JESSY OWENS ([phone])[address] PH, IONIZED CALCIUM 7.43 Normal 7.31-7.46 [facility] Comment on above: Performed By: #### L [id number] ####Systems Mgr: JESSY OWENS ([phone])[address] CBC W Auto Differential pane l (Bld)on 11-29-2024 Erythrocyte distribution width (RBC) [Ratio] 16.5 % High 11.5 - 15.0 % [facility] Hematocrit (Bld) [Volume fraction] 22.8 % Low 35.0 - 47.0 % [facility] Hemoglobin (Bld) [Mass/Vol] 7.4 g/dL Low 11.7 - 16.0 g/dL [facility] Interpretation and review of laboratory results Abnormal [facility] IPF 3 [facility] MCH (RBC) [Entitic mass] 33.2 pg 26. 0 - 34.0 pg [facility] MCHC (RBC) [Mass/Vol] 32.5 % 30.5 - 36.0 % [facility] MCV (RBC) [Entitic vol] 102.2 fL High 77.0 - 99.0 fL [facility] Platelet mean volume (Bld) [Entitic vol] 10.3 fL 9.0 - 12.7 fL [facility] Platelets (Bld) [#/Vol] 61 10*3/uL Low 140 - 440 10*3/uL [facility] RBC (Bld) [#/Vol] 2.23 10*6/uL Low 3.80 - 5.2 0 10*6/uL [facility] WBC (Bld) [#/Vol] 7.1 10*3/uL 3.6 - 10.7 10*3/uL [facility] CBC WITH AUTO DIFFERENTIALon 11-29-2024 Erythrocyte distribution width (RBC) [Ratio] 16.5 % High 11.5-15.0 [facility] Comment on above: Performed By: #### Davidson [id number], [id number] ####Systems Mgr: JESSY [id number])[address] Hematocrit (Bld) [Volume fraction] 22.8 % Low 35.0-47.0 [facility] Comment on above: Performed By: #### L [id number], [id number] ####Systems Mgr: JESSY [id number])[address] Hemoglobin (Bld) [Mass/Vol] 7.4 g/dL Low 11.7-16.0 [facility] Comment on above: Performed By: #### L [id number], [id number] ####Systems Mgr: JESSY [id number])[facility] [place] [address] [place] IPF 3 Normal [facility] Comment on above: Performed By: #### L [id number], [id number] ####Systems Mgr: JESSY OWENS ([id number])[facility] ([facility])[address] [place] [address] MCH (RBC) [Entitic mass] 33.2 pg Normal 26.0-34.0 [facility] Comment on above: Performed By: #### L [id number], [id number] ####Systems Mgr: JESSY OWENS ([phone])[facility])[address] [place] [address] MCHC 32.5 % Normal 30.5-36.0 [facility] Comment on above: Performed By: #### L [id number], [id number] ####Systems Mgr: JESSY OWENS ([id number])[facility] ([facility])[address] [place] [address] MCV (RBC) [Entitic vol] 102.2 fL High 77.0-99.0 [facility] Comment on above: Performed By: #### L [id number], [id number] ####Systems Mgr: JESSY OWENS ([id number])[facility] ([facility])[address] [place] [address] Platelet mean volume (Bld) [Entitic vol] 10.3 fL Normal 9.0-12.7 [facility] Comment on above: Performed By: #### L [id number], [id number] ####Systems Mgr: JESSY OWENS ([phone])[facility] ([facility])[address] [place] [address] [place] Platelets (Bld) [#/Vol] 61 10*3/uL Low 140-440 [facility] Comment on above: Performed By: #### L [id number], [id number] ####Systems Mgr: JESSY OWENS ([id number])[facility] ([address] RBC (Bld) [#/Vol] 2.23 10*6/uL Low 3.80-5.20 [facility] Comment on above: Performed By: #### L [id number], [id number] ####Systems Mgr: JESSY OWENS ([id number])[address] WBC (Bld) [#/Vol] 7.1 10*3/uL Normal 3.6-10.7 [facility] Comment on above: Performed By: #### L [id number], [id number] ####Systems Mgr: JESSY OWENS ([phone])[address] Calcium.ionized [Moles/Vol]o n 11-29-2024 Calcium.ionized (Bld) [Moles/Vol] 4.6 mg/dL 4.30 - 5.20 mg/dL [facility] Interpretation and review of laboratory results Normal [facility] PH, IONIZED CALCIUM 7.43 7.31 - 7.46 [facility] Consulton 11-29-2024 Consult Normal [facility] Laboratory - Chemistry and C hemistry - challengeon 11-29-2024 Magnesium [Mass/Vol] 2.1 mg/dL 1.6 - 2 .6 mg/dL [facility] Magnesium [Mass/Vol] 1.7 mg/dL 1.6 - 2 .6 mg/dL [facility] Laboratory - Hematology and Cell countson 11-29-2024 Anisocytosis Ql (Bld) Slight Abnormal (none) [facility] Band form neutrophils (Bld) [#/Vol] 0.5 10*3/uL High NINF - 0.0 10*3/uL [facility] Band form neutrophils/100 WBC (Bld) 7 % High NINF - 0 % [facility] Lymphocytes (Bld) [#/Vol] 1 10*3/uL 1.0 - 4.3 10*3/uL [facility] Lymphocytes/100 WBC (Bld) 14 % Low 15 - 45 % [facility] Macrocytes Ql (Bld) Slight Abnormal (none) [facility] Metamyelocytes (Bld) [#/Vol] 0.1 10*3/uL High NINF - 0.0 10*3/uL [facility] Metamyelocytes/100 WBC (Bld) 1 % High NINF - 0 % [facility] Monocytes (Bld) [#/Vol] 0.6 10*3/uL 0.0 - 0.9 10*3/uL [facility] Monocytes/100 WBC (Bld) 9 % 5 - 13 % [facility] Myelocytes (Bld) [#/Vol] 0.1 10*3/uL High BRITTANI F - 0.0 10*3/uL [facility] Myelocytes/100 WBC (Bld) 1 % High NINF - 0 % [facility] Neutrophils (Bld) [#/Vol] 5.3 10*3/uL 1.8 - 7.5 10*3/uL [facility] Nucleated RBC/100 WBC (Bld) [Ratio] 2 % 0 - 2 % [facility] Poikilocytosis LM Ql (Bld) Slight Abnormal (none) [facility] Promyelocytes (Bld) [#/Vol] 0.1 10*3/uL High NINF - 0.0 10*3/uL [facility] Promyelocytes/100 WBC (Bld) 1 % High NINF - 0 % [facility] RBC morphology finding Nom (Bld) abnormal [facility] Segmented neutrophils/100 WBC (Bld) 67 % 38 - 82 % [facility] Stomatocytes LM Ql (Bld) Slight Abnormal (none) [facility] Laboratory - Microbiology an d Antimicrobial susceptibilityon 11-29-2024 Bacteria identified Cx Nom (Bld) No growth at 5 days [facility] MAGNESIUMon 11-29-2024 Magnesium [Mass/Vol] 2.1 mg/dL Normal 1.6-2.6 [facility] Comment on above: Result Comment: ORDE R COMMENTS:Higher values can be expected in females during menses. Performed By: #### L [id number], [id number], [id number] ####Systems Mgr: JESSY OWENS ([phone])[facility] ([address] Magnesium [Mass/Vol] 1.7 mg/dL Normal 1.6-2.6 [facility] Comment on above: Result Comment: TANA R COMMENTS:Higher values can be expected in females during menses. Performed By: #### L AB113, [id number], [id number] ####Systems Mgr: JESSY OWENS ([phone])[facility] ([facility])[address] [place] [address] MANUAL DIFFERENTIAL (CELLAVI ZOIE)on 11-29-2024 ANISOCYTOSIS PRESENCE IN BLOOD BY LIGHT MICROSCOPY Slight Abnormal (none) [facility] Comment on above: Performed By: #### L [id number], [id number] ####Systems Mgr: JESSY OWENS ([phone])[facility] ([facility])[address] [place] [address] BAND NEUTROPHILS TOTAL PER COUNTED LEUKOCYTES BY MANUAL COUNT 7 Normal [facility] Comment on above: Performed By: #### L [id number], [id number] ####Systems Mgr: JESSY OWENS ([id number])[facility] ([facility])[address] [place] [address] BANDS (10*3/UL) IN BLOOD-CELLAVISION 0.5 10*3/uL High <=0.0 [facility] Comment on above: Performed By: #### L [id number], [id number] ####Systems Mgr: JESSY OWENS ([phone])[facility] ([facility])[address] [place] [address] [place] BASOPHILS TOTAL PER COUNTED LEUKOCYTES BY MANUAL COUNT [facility] Comment on above: Performed By: #### L [id number], [id number] ####Systems Mgr: JESSY OWENS ([id number])[facility] ([facility])[address] [place] [address] [place] BLASTS TOTAL PER COUNTED LEUKOCYTES BY MANUAL COUNT [facility] Comment on above: Performed By: #### L [id number], [id number] ####Systems Mgr: JESSY OWENS ([phone])[facility] ([facility])[address] [place] [address] EOSINOPHILS TOTAL PER COUNTED LEUKOCYTES BY MANUAL COUNT [facility] Comment on above: Performed By: #### L [id number], [id number] ####Systems Mgr: JESSY OWENS ([id number])[facility] ([facility])[address] [place] [address] [place] LYMPHOCYTES (10*3/UL) IN BLOOD-CELLAVISION 1.0 10*3/uL Normal 1.0-4.3 [facility] Comment on above: Performed By: #### L [id number], [id number] ####Systems Mgr: JESSY OWENS ([phone])[facility])[address] [place] [address] [place] LYMPHOCYTES TOTAL PER COUNTED LEUKOCYTES BY MANUAL COUNT 15 Normal [facility] Comment on above: Performed By: #### L [id number], [id number] ####Systems Mgr: JESSY OWENS ([phone])[facility] ([facility])[address] [place] [address] LYMPHOCYTES/100 LEUKOCYTES IN BLOOD-CELLAVISION 14 % Low 15-45 [facility] Comment on above: Performed By: #### L [id number], [id number] ####Systems Mgr: JESSY OWENS ([id number])[facility] ([facility])[address] [place] [address] MACROCYTES (PRESENCE) IN BLOOD BY LIGHT MICROSCOPY Slight Abnormal (none) [facility] Comment on above: Performed By: #### L [id number], [id number] ####Systems Mgr: JESSY OWENS ([phone])[facility] ([facility])[address] [place] [address] [place] METAMYELOCYTES (10*3/UL) IN BLOOD-CELLAVISION 0.1 10*3/uL High <=0.0 [facility] Comment on above: Performed By: #### L [id number], [id number] ####Systems Mgr: JESSY OWENS ([id number])[facility] ([facility])[address] [place] [address] [place] METAMYELOCYTES TOTAL PER COUNTED LEUKOCYTES BY MANUAL COUNT 1 Normal [facility] Comment on above: Performed By: #### L [id number], [id number] ####Systems Mgr: JESSY OWENS ([phone])[facility] ([facility])[address] [place] [address] [place] METAMYELOCYTES/100 LEUKOCYTES IN BLOOD-CELLAVISION 1 % High <=0 [facility] Comment on above: Performed By: #### L [id number], [id number] ####Systems Mgr: JESSY OWENS ([id number])[facility] ([facility])[address] [place] [address] [place] MONOCYTES (10*3/UL) IN BLOOD-CELLAVISION 0.6 10*3/uL Normal 0.0-0.9 [facility] Comment on above: Performed By: #### L [id number], [id number] ####Systems Mgr: JESSY OWENS ([phone])[facility] ([facility])[address] [place] [address] [place] MONOCYTES TOTAL PER COUNTED LEUKOCYTES BY MANUAL COUNT 10 Normal [facility] Comment on above: Performed By: #### L [id number], [id number] ####Systems Mgr: JESSY OWENS ([id number])[facility] ([facility])[address] [place] [address] [place] MONOCYTES/100 LEUKOCYTES IN BLOOD-GIRMA 9 % Normal 5-13 [facility] Comment on above: Performed By: #### L [id number], [id number] ####Systems Mgr: JESSY OWENS ([phone])[facility] ([facility])[address] [place] [address] [place] MYELOCYTES (10*3/UL) IN BLOOD-CELLAVISION 0.1 10*3/uL High <=0.0 [facility] Comment on above: Performed By: #### L [id number], [id number] ####Systems Mgr: JESSY OWENS ([id number])[facility] ([facility])[address] [place] [address] [place] MYELOCYTES COUNTED BY MANUAL COUNT 1 Normal [facility] Comment on above: Performed By: #### L [id number], [id number] ####Systems Mgr: JESSY OWENS ([id number])[facility] ([facility])[address] [place] [address] [place] MYELOCYTES/100 LEUKOCYTES IN BLOOD-CELLAVISION 1 % High <=0 [facility] Comment on above: Performed By: #### Davidson [id number], [id number] ####Systems Mgr: JESSY OWENS ([phone])[facility] ([facility])[address] [place] [address] [place] NEUTROPHILS BAND FORM/100 LEUKOCYTES IN BLOOD-CELLAVISI 7 % High <=0 [facility] Comment on above: Performed By: #### Davidson [id number], [id number] ####Systems Mgr: JESSY OWENS ([phone])[facility] ([facility])[address] [place] [address] [place] NEUTROPHILS TOTAL PER COUNTED LEUKOCYTES BY MANUAL COUNT 71 Normal [facility] Comment on above: Performed By: #### Davidson MCCLELLAN, [id number] ####Systems Mgr: JESSY OWENS ([phone])[facility] ([facility])[address] [place] [address] [place] NUCLEATED ERYTHROCYTES/100 LEUKOCTES IN BLOOD-CELLAVISION 2 % Normal 0-2 [facility] Comment on above: Performed By: #### Davidson [id number], [id number] ####Systems Mgr: JESSY OWENS ([phone])[facility] ([facility])[address] [place] [address] [place] POIKILOCYTOSIS (PRESENCE) IN BLOOD BY LIGHT MICROSCOPY Slight Abnormal (none) [facility] Comment on above: Performed By: #### Davidson [id number], [id number] ####Systems Mgr: JESSY OWENS ([id number])[facility] ([facility])[address] [place] [address] [place] PROMEYELOCYTES (10*3/UL) IN BLOOD-CELLAVISION 0.1 10*3/uL High <=0.0 [facility] Comment on above: Performed By: #### Davidson [id number], [id number] ####Systems Mgr: JESSY WOENS ([phone])[facility] ([facility])[address] [place] [address] [place] PROMYELOCYTES TOTAL PER COUNTED LEUKOCYTES BY MANUAL COUNT 1 Normal [facility] Comment on above: Performed By: #### L [id number], [id number] ####Systems Mgr: JESSY OWENS ([phone])[facility] ([facility])[address] [place] [address] [place] PROMYELOCYTES/100 LEUKOCYTES IN BLOOD-CELLAVISION 1 % High <=0 [facility] Comment on above: Performed By: #### L [id number], [id number] ####Systems Mgr: JESSY OWENS ([phone])[facility] ([facility])[address] [place] [address] RBC MORPHOLOGY IN BLOOD abnormal Normal [facility] Comment on above: Performed By: #### L [id number], [id number] ####Systems Mgr: JESSY OWENS ([id number])[facility] ([facility])[address] [place] [address] [place] SEGMENTED NEUTROPHILS (10*3/UL) IN BLOOD-CELLAVISION 5.3 10*3/uL Normal 1.8-7.5 [facility] Comment on above: Performed By: #### L [id number], [id number] ####Systems Mgr: JESSY OWENS ([phone])[facility])[address] [place] [address] [place] SEGMENTED NEUTROPHILS/100 LEUKOCYTES-CE 67 % Normal 38-82 [facility] Comment on above: Performed By: #### L [id number], [id number] ####Systems Mgr: JESSY OWENS ([id number])[facility])[address] [place] [address] [place] STOMATOCYTES IN BLOOD BY LIGHT MICROSCOPY Slight Abnormal (none) [facility] Comment on above: Performed By: #### L [id number], [id number] ####Systems Mgr: JESSY OWENS ([phone])[facility] ([facility])[address] UNCLASSIFIED CELLS TOTAL PER COUNTED LEUKOCYTES BY MANUAL COUNT Normal [facility] Comment on above: Performed By: #### L [id number], [id number] ####Systems Mgr: JESSY OWENS ([phone])[facility] ([facility])[address] [place] [address] VARIANT LYMPHOCYTES TOTAL PER COUNTED LEUKOCYTES BY MANUAL COUNT Normal [facility] Comment on above: Performed By: #### L [id number], [id number] ####Systems Mgr: JESSY OWENS ([phone])[facility] ([facility])[address] [place] [address] Magnesium [Mass/Vol]on 11-29 Interpretation and review of laboratory results Normal [facility] Interpretation and review of laboratory results Normal [facility] No Panel InformationOrdered By: Jessy Owens on 11-29-2024 Case Report [facility] Work Phone: Comment y5ykyNTaZQWktAErMSRm OWlfdrTqXZSmgMHfJ8By irdaCFeuOX7nRL2bmNjy xLZijORfQWLiFoQio0hc e942hFXdh1ssMMEKGSvz DGXZIZl6eDnxV91gz4D7 WeqhI71jeAJgHTI0LJFt PWTetBUhUSBaOGX8PLXh jRQuZ8xxNWLwXV2yyqvh AMmwYOgkQHIuvLA6QFMo sVAoV2TsMURoXDcxKFBz fvd2XmZnGm6lyOIulGff MFxwYXJkXHBsYWluXGZz RuPxKQDjTHOyu3ErF5H2 JMHdZAltx9lyPUFsBXxg b1SzDErSAJKFNQ3ZND0a lIN3MTlCETCOK3uJvFB8 PYx2wKN9CF72ZHIzVRFv gKEgCAfvD978OG4gsRvk u6rdzHYtYTinFrzhkJOl kdE0GSmVIRKKZBrIVuYz KX8zYEtOB9TWRvZ7Vcmv ENd1RXmhnEmaLzxrepOb xIPfYvXpkD3qaBmstL7x ZnMyMCAgcmVtYWlucyBw TKYyiFD4BA46HTfkaDtx dXQgaWRlbnRpZmlhYmxl ZPBzgVYmTGDto08xcAIe izS6sJ5aEQZzmlHqbLXs cTZojQcrCrolqAA0EBou JhorkG2iaAJAFRKIIwmA MsqzotSzJR4YCSNKGdUH YE46WykeYCJ5FmmjaCmp YrdsvyYpiSWtMkVgwT7j o15yWQ5iqcJhyhIunTBg n8nhsITlJRatKjfaiYNa wdD2IFzIIXDFWOmJQlRe KP4hDZlTZ5ZGSwR0Xayc RLB3UiiimXgjKilfrlHa gFAaOkRgvX8pqUhhnB2q UiStPPGkiUSjhtKrs11p YM5gEPUbyH3fVhHwiEoh riVyybMvuRJ4TEAye7Vq WZOkq1VwO4Z8BMSfTDpu h1fpXHKsAIbac0SwEXqN LQQNPQ6QFL7sgJH4IOgM SGLFL6rSeFD1UVv9nAV0 K261HIYtXANgtHSlSSlt W737oPvjjX3rvEVasNAt xSluEQ7qb3VsKDEwz5qp aWVsZHtcKlxmbGRpbnN0 SIiJDYCIIQvEFkLcIU1r GZzSK3EIAyH5TnkjVAs4 M8emqEpkRulapnPckBNl GeXzmB5nbBsqlF8qByAq MCAuXHBhclxwYXJkXHBh kiw9YSASMQGYTDoUIA8H MYOPLWZNQU2HTNzVPnLx VdK4W8hnIRxnEctoOFU9 Xe0kUwX6MQe0eQL0RzIB ELTVZSaNQ9ZiBWTHAETX KXBiLN6BFOtZVVITCFXR L88DULGIRQNBR5SNT9aG HCdZWCCGBKLMV82UIKMR FCDNV1XCWSRGKLJPTKyN XRGOLu8XNPOVGFFBTI5N RUdJTiAxXHthaGRjZWxs NYxsdpBbAjG9HFw2XP4l YNiwfTYpSF4lINVem2Xp ZuZ8FAk6HU2gYErpqJUh RB0yRNq5QxabJLsseUKL TVNPPGvHMRVEBf0DOHSD KIZLOL4UJjHfG8LLAR6Q Fj3DSRQAJIICDY2CELzJ CrZeP9AZCB2ZIh7RKUYI HTEIPB8NYwVjDGKOU9LN UeLHC9yiOGPCYRWATRIm CsAEUS8mNDVCTW1WSPEA XXOZB64YAECRDMXZX2WK RH0= [facility] Work Phone: Gross Description q9zjpZBnQVSmkZUwClIj JQDsDHMtz6jyAKOzcPXm ZzEwMzNcZnRuYmpcdWMx GDDwVdEuo5sgx115jQTa j3ikFFKtDiC2lCUtQSBs W96aWPCFB229EWAdTWeg e6gas2SjVQTqwWAtq8L9 XRYCYXaqJWMOSAa5nNdg H85xb6S8JendA9cgOSMw BHLaZ8YuAB1iROQtBrg8 VUY1RPQ3CSTrEVUtP5Sr IV5rCEZflKMyXPn2u1rm vXjjUZHhUXD5g0rnECrx ynZrOR0skz9yfCc8p2wz czEgRGVmYXVsdCBQYXJh A1CdiGbcJx7ajXm8nRsf VukrHWT4Gjk5UO5lno68 akh3nCyeMTPyiyaqHmO7 BCxkJWQvwzxrFTd7TCfv THDhhPL5ARDuuBNnD3Sl MKXjVR2vbgl1ALZ9ZZnz JXXsBtK9HFVblDEbBYOt yOeiUSsft709SFQ5YvGc IN6mG5Ddp7O0wB7ahLAj VIYwuBQoNzFrDEWkcl9x lUDeBOfgt2YlDWP1nqG4 jMRpmLXtMYUyOH82Gzhl x1QgBxvnARW5BQUzydCn q8Min8voDeSkscAiD5gc B7VuDCArZNQlMXXaCaVg ptIna8Czx1DdgEIrjPn8 o7mxVRHiCXTyxMfyl6vr IPI8LCCaR0D7lRThy2xh OTemHDUvoXS6hiV2KBVg sOMtV2OrhM4xWUGdNL0b iru5v2swMOZ3UPqzWQIq ImC4hmM5DAZwhHJxHCVm dNvwBQfdd830VMR4WkMc NHWea6MhO5EpmStoH77m xIqqN40qHAIijVcqjX8t hMumoO1bSqCiDfDmFNcf bFxwbGFpblxmMVxmczIy UHlikflgRPCcIIlwF1po PbPsNUEuvCliVLlag0Vm XGYxXGZzMjIgUGVyaXBo ZXJhbCBzbWVhciBzbGlk GZQkclXqGNKnGKFzx6Fs IYPrtLUimSjktm2vjTFw fQ== [employer] Work Phone: Pathologist Interpretation Location [facility], [address] [place] [address], [facility] [address], CLIA: [id number]; Joint Commission: [id number] [id number]; CAP: [id number] [facility] Phone: Pathology report final diagnosis Narrative g3cjxWAkJDTzkLDyRJHl UTglouTeBEGtdJEfH5Ik biyeWFnzVP9hBK7lsHkm uUKlbHWvLUHfIcOyj7ze t750bROwd6dhHJSMAMix QLQOFNp9f1ugUBBNTLBe TR3eF137WETqCMRtgRWq IDFaMuN4Q581MXPnYPuq icrwhA7hsvr7xGabJ24d h5R4XzfyB752WGxcbCjq qZYoUwwho6ysgVQ2AEdv x0DhXRA1Ffi4FFI4EZuf kCC8jTKiuXjpnLJsOE2g n7zkfPW6bvMyXKJ9kRuv pQP3xQqhjcqbt1rnqRV8 tLA7UJdpoPO1LHfzIgUd B7neDURmoI9gS96yA2lz ZXZlbGpjMFxsZXZlbHN0 VLG3LIEjl7wcPLUlnVKl yZAvZzZoYNP9EkD1PHpy IWI5dFebvFL1PNcrmC5n POQsV43cRaNbuPnqEwTs ZmktMzYwfXtcbGlzdGxl dmVsXGxldmVsbmZjMjNc bAG5KAgcEaKoJbGmiEI7 YZheMhIrvMM8LExdmLDo sSK5CAbfpGA7OZw1GTt6 DQiyXD61kGybiQJ3RRhp qS8tYFXpX91uMmTnzThy TCaqTXYfXVS2QN24ZNsq x4QfMOOvxPhfHIKwiH0q YzIzXGxldmVsbmZjbjIz XGxldmVsamMwXGxldmVs c4WatyEpzTW1NFxhypJw xBS0gTdbTWUnvK5qWAS4 GN10kIemrZU9IVbzxR5z TIQwX38xOdHvePwmJFCe RIGgZWJ7LM17SLmga6Sm UCXiqYbbFUMugA7qVtEh XGxldmVsbmZjbjIzXGxl lpAsixTuSKovcuUta4Cn obEouHQ8LSjnpyFfyJO4 dFwnMDFcdTgyMjYgXCc5 OYb2r7qmWVEjeE63cIVc voY6bHfrYScsgDS3GcKr ZmktMzYwfXtcbGlzdGxl dmVsXGxldmVsbmZjMjNc rSL7PLmbIhTrZiYjlTY5 DXiwFvCscHJ9KRsalUDr wOB9PKtdfJP2RIb2UHr8 CLnjVX95cPbopYN4NVzw eW7vUGNwP97xSpHleDcx RdNuARZoQUC1PU97KDpe x0QuDHQfnSkwKKRwaC2y YzIzXGxldmVsbmZjbjIz XGxldmVsamMwXGxldmVs m5VeyyFwmWR2AUztkoTs fUL4aFoxJJAksV5hOBM3 JJ58zDmnqGO1KGjxlS8w BYMqC05wDpAefPbvEHSx BXOaIKV6MF33KBzmd3Sh MDXzmEifKDOfuX8zXjGr XGxldmVsbmZjbjIzXGxl ltPhbkSjRYxrmbTem1Jw wnTlpWZ3FUrwacUxkCT9 dFwnMDFcdTgyMjYgXCc5 CTx4w9fdJITynT18hYXx fjF5lHcsXEuykTZ4MAZc ZmktMzYwfXtcbGlzdGxl dmVsXGxldmVsbmZjMjNc mWL4QZywQfKwHrLlgWP0 SChtJlHyrKA3UJfzdFBu hBR8IXjfxFA3KGe0PAl2 EGryFL33fZqvbBF0FDoy aR2lBZCeS18kPaAszUc3 ZMPkFGVvDAP6CQ52NJwm h4KrNFBxqVpuUWWdhC9a YzIzXGxldmVsbmZjbjIz XGxldmVsamMwXGxldmVs k6LcdnRwnRB5CKvdyiNl hRM9qMjuXJPogL6wZQQ1 IR02pVfwaTE4JEyccI2g ZTQrF28rKoDglRb7MZUq XHXgSLY6FT84jSqnHrjb oYA3s6ByxzNmFZW5ZNAe LVrwTivhxVX3t9QnljGr ZGVcbGlzdGlkNDYzOTc0 AFn3IWlnl2PbqxOczubx DJHbwK86ISlfwfB8aMib XKLjnxsyXdO5BDpyHFCs hryhAKk1HNtlDHEnjVV1 RUQmxCCrW6CrPTJkAE3z ien8VGV2NKpkDDJzBmM3 NDBcaGVhZGVyeTcyMFxm o622TUE4VgViRPIgngLx yYfziB8yMjVuKKVHKOQr cHsniyBpNUIeh44rVBTv ZWFyOlxwYXJcbGkzNjBc CamaMsVcEImthhC0XOqg pnJbpLt4qZEblOnhcT9u YbBuVXJNUIWrd5C8tSdu UHLtv4Cuw2Penk9eqFSt MK3lyDajYHzjwKbmkJux SPEcv0eysRmeX7h8s0Lh ytnboDBzN2W0SZIsvVbz CLUfv5m9S4dtr57ba5sx RWLoyxZbplUdXMMiW0zb k4JnC0i4PVSpTDLktkYP YcBgiQV1ZAXpu91pK9z9 j5MbywF4hMDnFCxsUE57 vA9vhYPwRdEwTKN3TGDx rJD2YAFnMQStnNAebdOv B78pvyThWOImRLH0qw9v mAtnxh6ipMJiEHHzzc9q Ir3uuBCjdHImlVTeo7j3 dEDgb1ogYPQCOsrmKMTo TkEyPMGioDTgcoE0bas5 vJ2uOGxjZWFpnLPoFP3r gZ1aFVnnxFYyfLJtk79n GNUwnSfhDUG0aZ1doBNo okLgYYehx9kuaCioPRAz uGpvN4LiFVFovGbcusCr YTRtSQMbGrZcW9MkKPHv jE6cAGBlj4QtCPEyJL1z sMzbcANhFDHxvi7geDAk zQ0vkSPnhUP2q5S3JYY7 IAAsoktppZt9NKJwZOjo MlLeZ0Sxf51xABugReHf aMcsxy7cVAUqmTCfKXQ9 bG4fsR37djYnNKkyJKPa GVuxg0HpKT8oNuEubDOe sR0owTmvopjzoXLtkEXj EAEhmODnBCP8lkTnoOds hzmvpIuzxC5kbHAqaNKf zHmrHFC5lrWen10etccu ZY1nPKAiulZpwNRrip99 HKL2ijHhuz1qfHZpcV== [facility] Work Phone: [facility] Work Phone: No Panel Informationon 11-29 Bands Manual 7 [facility] Interpretation and review of laboratory results Abnormal [facility] Lymphocytes Manual 15 [facility] Metamyelocytes Manual 1 [facility] Monocytes Manual 10 [facility] Myelocytes Manual 1 [facility] ealth Neutrophils Manual 71 [facility] Promyelocytes Manual 1 [facility] Interpretation and review of laboratory results Abnormal [facility] PHOSPHORUSon 11-29-2024 Phosphate [Mass/Vol] 2.6 mg/dL Normal 2.3-4.7 [facility] Comment on above: Performed By: #### L AB103, CTC247, LAB15 ####Systems Mgr: JESSY OWENS ([id number])[facility] [place] [id number] [place] Phosphate [Mass/Vol] 2.1 mg/dL Low 2.3-4.7 [facility] Comment on above: Performed By: #### L AB113, LAB15, KJR244 ####Systems Mgr: JESSY OWENS ([id number])[facility] ([facility])[address] [place] [id number] [place] Phosphate [Moles/Vol]on 11-17 Interpretation and review of laboratory results Normal [facility] Phosphate [Mass/Vol] 2.6 mg/dL 2.3 - 4 .7 mg/dL [facility] Phosphate [Mass/Vol] 2.1 mg/dL Low 2.3 - 4 .7 mg/dL [facility] Progress Noteon 11-29-2024 Progress Note Normal [facility] Progress Note Normal [facility] 30on 11-28-2024 30 Normal [facility] 30 Normal [facility] [id number] 11-28-2024 [id number] Normal [facility] BASIC METABOLIC PANELon 11-17 Anion gap [Moles/Vol] 5 mmol/L Normal -13 [facility] Comment on above: Performed By: #### L AB15 ####Systems Mgr: JESSY OWENS ([phone])[facility] ([facility])[address] [place] [address] [place] Calcium [Mass/Vol] 8.6 mg/dL Low 8.8-10.0 [facility] Comment on above: Performed By: #### L AB15 ####Systems Mgr: JESSY OWENS ([id number])[facility] [place] [address] [place] Chloride [Moles/Vol] 108 mmol/L High 98-107 [facility] Comment on above: Performed By: #### L AB15 ####Systems Mgr: JESSY OWENS ([id number])[facility] ([facility])[address] [place] [address] [place] CO2 [Moles/Vol] 22 mmol/L Low 23-31 [facility] Comment on above: Performed By: #### L AB15 ####Systems Mgr: JESSY OWENS ([id number])[facility])[address] [place] [address] Creatinine [Mass/Vol] 0.57 mg/dL Normal 0.57-1.11 [facility] Comment on above: Performed By: #### L AB15 ####Systems Mgr: JESSY OWENS ([id number])[facility])[address] [place] [address] GLOMERULAR FILTRATION RATE ML/MIN/1.73 SQ M.PREDICTED >90.0 Normal >60.0 [facility] Comment on above: Result Comment: Calc ulation based on the Chronic Kidney Disease Epidemiology Collaboration (CKD-EPI) equation refit without adjustment for race Performed By: #### L AB15 ####Systems Mgr: JESSY OWENS ([phone])[facility])[address] [place] [address] Glucose [Mass/Vol] 125 mg/dL High 82-115 [facility] Comment on above: Performed By: #### L AB15 ####Systems Mgr: JESSY OWENS ([id number])[facility])[address] [place] [address] Potassium [Moles/Vol] 3.7 mmol/L Normal 3.5-5.1 [facility] Comment on above: Result Comment: [facility] potassium values may be up to 0.5 mmol/L lower than serum values. Performed By: #### L AB15 ####Systems Mgr: JESSY OWENS ([id number])[facility])[address] [place] [address] [place] Sodium [Moles/Vol] 135 mmol/L Low 136-145 [facility] Comment on above: Performed By: #### L AB15 ####Systems Mgr: JESSY OWENS ([phone])[facility])[address] [place] [address] Urea nitrogen [Mass/Vol] 14 mg/dL Normal 9-23 [facility] Comment on above: Performed By: #### L AB15 ####Systems Mgr: JESSY OWENS ([id number])[facility])[address] [place] [address] Anion gap [Moles/Vol] 8 mmol/L Normal 3-13 [facility] Comment on above: Performed By: #### L AB15, [id number], [id number] ####Systems Mgr: JESSY OWENS ([phone])[facility] ([facility])[address] [place] [address] Calcium [Mass/Vol] 8.5 mg/dL Low 8.8-10.0 [facility] Comment on above: Performed By: #### L AB15, [id number], EWV816 ####Systems Mgr: JESSY OWENS ([id number])[facility] ([facility])[address] [place] [address] Chloride [Moles/Vol] 108 mmol/L High 98-107 [facility] Comment on above: Performed By: #### L AB15, [id number], ULO652 ####Systems Mgr: JESSY OWENS ([phone])[facility] ([facility])[address] [place] [address] CO2 [Moles/Vol] 23 mmol/L Normal 23-31 [facility] Comment on above: Performed By: #### L AB15, IJI753, GBE187 ####Systems Mgr: JESSY OWENS ([id number])[facility])[address] [place] [address] Creatinine [Mass/Vol] 0.56 mg/dL Low 0.57-1.11 [facility] Comment on above: Performed By: #### L AB15, YVE114, BMG029 ####Systems Mgr: JESSY OWENS ([id number])[facility])[address] [place] [address] GLOMERULAR FILTRATION RATE ML/MIN/1.73 SQ M.PREDICTED >90.0 Normal >60.0 [facility] Comment on above: Result Comment: Calc ulation based on the Chronic Kidney Disease Epidemiology Collaboration (CKD-EPI) equation refit without adjustment for race Performed By: #### L AB15, FQT075, OPR806 ####Systems Mgr: JESSY OWENS ([id number])[facility] ([facility])[address] [place] [address] Glucose [Mass/Vol] 137 mg/dL High 82-115 [facility] Comment on above: Performed By: #### L AB15, [id number], UTO238 ####Systems Mgr: JESSY OWENS ([id number])[facility] ([facility])[address] [place] [address] Potassium [Moles/Vol] 3.5 mmol/L Normal 3.5-5.1 [facility] Comment on above: Result Comment: [facility] potassium values may be up to 0.5 mmol/L lower than serum values. Performed By: #### L AB15, MNQ794, BEJ446 ####Systems Mgr: JESSY OWENS ([phone])[facility] ([facility])[address] [place] [address] [place] Sodium [Moles/Vol] 139 mmol/L Normal 136-145 [facility] Comment on above: Performed By: #### L AB15, WXQ538, BCO833 ####Systems Mgr: JESSY OWENS ([phone])[facility] ([facility])[address] [place] [address] [place] Urea nitrogen [Mass/Vol] 15 mg/dL Normal 9-23 [facility] Comment on above: Performed By: #### L AB15, EDW683, XHN910 ####Systems Mgr: JESSY OWENS ([id number])[facility] ([facility])[address] [place] [address] [place] Anion gap [Moles/Vol] 6 mmol/L Normal 3-13 [facility] Comment on above: Performed By: #### L AB89, LAB52, UFW389, YJP420, CDX635, LAB15, LAB50, LAB96 ####Systems Mgr: JESSY OWENS ([id number])[facility] ([facility])[address] [place] [address] Calcium [Mass/Vol] 8.5 mg/dL Low 8.8-10.0 [facility] Comment on above: Performed By: #### L AB89, LAB52, QQQ616, SSE411, TPS126, LAB15, LAB50, LAB96 ####Systems Mgr: JESSY OWENS ([id number])[facility])[address] [place] [address] Chloride [Moles/Vol] 110 mmol/L High 98-107 [facility] Comment on above: Performed By: #### L AB89, LAB52, BYB097, TZV629, BLA021, LAB15, LAB50, LAB96 ####Systems Mgr: JESSY OWENS ([id number])[facility])[address] [place] [address] CO2 [Moles/Vol] 23 mmol/L Normal 23-31 [facility] Comment on above: Performed By: #### L AB89, LAB52, USU107, UIF609, CTN437, LAB15, LAB50, LAB96 ####Systems Mgr: JESSY OWENS ([id number])[facility])[address] [place] [address] Creatinine [Mass/Vol] 0.58 mg/dL Normal 0.57-1.11 [facility] Comment on above: Performed By: #### L AB89, LAB52, CUT315, AXU305, EOJ965, LAB15, LAB50, LAB96 ####Systems Mgr: JESSY OWENS ([id number])[facility])[address] [place] [address] GLOMERULAR FILTRATION RATE ML/MIN/1.73 SQ M.PREDICTED >90.0 Normal >60.0 [facility] Comment on above: Result Comment: Calc ulation based on the Chronic Kidney Disease Epidemiology Collaboration (CKD-EPI) equation refit without adjustment for race Performed By: #### L AB89, LAB52, JOS193, KLQ110, KWF361, LAB15, LAB50, LAB96 ####Systems Mgr: JESSY OWENS ([id number])[facility])[address] [place] [address] Glucose [Mass/Vol] 137 mg/dL High 82-115 [facility] Comment on above: Performed By: #### L AB89, LAB52, CTH233, IGQ054, OOF087, LAB15, LAB50, LAB96 ####Systems Mgr: JESSY OWENS ([id number])[facility])[address] [place] [address] Potassium [Moles/Vol] 3.9 mmol/L Normal 3.5-5.1 [facility] Comment on above: Result Comment: [facility] potassium values may be up to 0.5 mmol/L lower than serum values. Performed By: #### L AB89, LAB52, LGW785, BRA014, FRB479, LAB15, LAB50, LAB96 ####Systems Mgr: JESSY OWENS ([id number])[facility])[address] [place] [address] Sodium [Moles/Vol] 139 mmol/L Normal 136-145 [facility] Comment on above: Performed By: #### L AB89, LAB52, TWM103, CVY588, FPQ230, LAB15, LAB50, LAB96 ####Systems Mgr: JESSY OWENS ([id number])[facility])[address] [place] [address] Urea nitrogen [Mass/Vol] 16 mg/dL Normal 9-23 [facility] Comment on above: Performed By: #### L AB89, LAB52, MLN270, NPV767, HYC433, LAB15, LAB50, LAB96 ####Systems Mgr: JESSY OWENS ([id number])[address] BILIRUBIN, DIRECTon 11-29-19 25 Bilirubin.indirect [Mass/Vol] 0.6 mg/dL High <0.5 [facility] Comment on above: Performed By: #### L AB89, LAB52, HYB308, XUP491, DYL189, LAB15, LAB50, LAB96 ####Systems Mgr: JESSY OWENS ([id number])[facility] ([facility])[address] [place] [address] BILIRUBIN, TOTALon Bilirubin [Mass/Vol] 1.0 mg/dL Normal <1.2 [facility] Comment on above: Performed By: #### L AB89, LAB52, NAB955, KPW777, GVR679, LAB15, LAB50, LAB96 ####Systems Mgr: JESSY OWENS ([id number])[facility] ([facility])[address] [place] [address] BLOOD CULTUREon 11-28-2024 Bacteria identified Cx Nom (Bld) Normal [facility] Comment on above: Performed By: #### L AB462 ####Systems Mgr: JESSY OWENS ([id number])[facility] ([facility])[address] [place] [address] Bacteria identified Aer cx N om (Unsp spec)Ordered By: Joon Alvarez on 11-28-2024 Gram Stain Result Moderate Polymorphonuclear leukocytes per low power field Abnormal [facility] Gram Stain Result Positive Abnormal [facility] Gram Stain Result Negative Abnormal [facility] Interpretation and review of laboratory results Abnormal [facility] Basic metabolic 1998 panelon 11-28-2024 Anion gap [Moles/Vol] 5 mmol/L 3 - 13 mmol/L [facility] Calcium [Mass/Vol] 8.6 mg/dL Low 8.8 - 10. 0 mg/dL [facility] Chloride [Moles/Vol] 108 mmol/L High 98 - 10 7 mmol/L [facility] CO2 [Moles/Vol] 22 mmol/L Low 23 - 31 mmol/L [facility] Creatinine [Mass/Vol] 0.57 mg/dL 0.57 - 1.11 mg/dL [facility] GFR/1.73 sq M.predicted (S/P/Bld) [Vol rate/Area] - PINF [facility] Glucose [Mass/Vol] 125 mg/dL High 82 - 115 mg/dL [facility] Interpretation and review of laboratory results Abnormal [facility] Potassium [Moles/Vol] 3.7 mmol/L 3.5 - 5.1 mmol/L [facility] Sodium [Moles/Vol] 135 mmol/L Low 136 - 145 mmol/L [facility] Urea nitrogen [Mass/Vol] 14 mg/dL 9 - 23 mg/d L [facility] Anion gap [Moles/Vol] 8 mmol/L 3 - 13 mmol/L [facility] Calcium [Mass/Vol] 8.5 mg/dL Low 8.8 - 10. 0 mg/dL [facility] Chloride [Moles/Vol] 108 mmol/L High 98 - 10 7 mmol/L [facility] CO2 [Moles/Vol] 23 mmol/L 23 - 31 mmol/L [facility] Creatinine [Mass/Vol] 0.56 mg/dL Low 0.57 - 1.11 mg/dL [facility] GFR/1.73 sq M.predicted (S/P/Bld) [Vol rate/Area] - PINF [facility] Glucose [Mass/Vol] 137 mg/dL High 82 - 115 mg/dL [facility] Interpretation and review of laboratory results Abnormal [facility] Potassium [Moles/Vol] 3.5 mmol/L 3.5 - 5.1 mmol/L [facility] Sodium [Moles/Vol] 139 mmol/L 136 - 145 mmol/L [facility] Urea nitrogen [Mass/Vol] 15 mg/dL 9 - 23 mg/d L [facility] Anion gap [Moles/Vol] 6 mmol/L 3 - 13 mmol/L [facility] Calcium [Mass/Vol] 8.5 mg/dL Low 8.8 - 10. 0 mg/dL [facility] Chloride [Moles/Vol] 110 mmol/L High 98 - 10 7 mmol/L [facility] CO2 [Moles/Vol] 23 mmol/L 23 - 31 mmol/L [facility] Creatinine [Mass/Vol] 0.58 mg/dL 0.57 - 1.11 mg/dL [facility] GFR/1.73 sq M.predicted (S/P/Bld) [Vol rate/Area] - PINF [facility] Glucose [Mass/Vol] 137 mg/dL High 82 - 115 mg/dL [facility] Potassium [Moles/Vol] 3.9 mmol/L 3.5 - 5.1 mmol/L [facility] Sodium [Moles/Vol] 139 mmol/L 136 - 145 mmol/L [facility] Urea nitrogen [Mass/Vol] 16 mg/dL 9 - 23 mg/d L [facility] Bilirubin.indirect [Mass/Vol ]on 11-28-2024 Bilirubin.conjugated [Mass/Vol] 0.6 mg/dL High NINF - 0.5 mg/dL [facility] Interpretation and review of laboratory results Abnormal [facility] C-REACTIVE PROTEINon 025 CRP [Mass/Vol] 30.3 mg/L High <5.0 [facility] Comment on above: Performed By: #### L AB89, LAB52, YMD552, HXG681, JSD586, LAB15, LAB50, LAB96 ####Systems Mgr: JESSY OWENS ([id number])[facility] ([facility])[address] [place] [address] CALCIUM, IONIZEDon 5 CALCIUM IONIZED 4.50 mg/dL Normal 4.30-5.20 [facility] Comment on above: Performed By: #### L AB54 ####Systems Mgr: JESSY OWENS ([id number])[facility] ([facility])[address] [place] [address] PH, IONIZED CALCIUM 7.50 High 7.31-7.46 [facility] Comment on above: Performed By: #### L AB54 ####Systems Mgr: JESSY OWENS ([id number])[facility])[address] [place] [address] CBC W Auto Differential pane l (Bld)on 11-28-2024 Erythrocyte distribution width (RBC) [Ratio] 16.4 % High 11.5 - 15.0 % [facility] Hematocrit (Bld) [Volume fraction] 21.7 % Low 35.0 - 47.0 % [facility] Hemoglobin (Bld) [Mass/Vol] 7.5 g/dL Low 11.7 - 16.0 g/dL [facility] IPF 3 [facility] MCH (RBC) [Entitic mass] 34.2 pg High 26. 0 - 34.0 pg [facility] MCHC (RBC) [Mass/Vol] 34.6 % 30.5 - 36.0 % [facility] MCV (RBC) [Entitic vol] 99.1 fL High 77.0 - 99.0 fL [facility] Platelet mean volume (Bld) [Entitic vol] 10.2 fL 9.0 - 12.7 fL [facility] Platelets (Bld) [#/Vol] 69 10*3/uL Low 140 - 440 10*3/uL [facility] RBC (Bld) [#/Vol] 2.19 10*6/uL Low 3.80 - 5.2 0 10*6/uL [facility] WBC (Bld) [#/Vol] 7.3 10*3/uL 3.6 - 10.7 10*3/uL [facility] CBC WITH AUTO DIFFERENTIALon 11-28-2024 Erythrocyte distribution width (RBC) [Ratio] 16.4 % High 11.5-15.0 [facility] Comment on above: Performed By: #### L AB296, [id number], [id number] ####Systems Mgr: JESSY OWENS ([id number])[address] Hematocrit (Bld) [Volume fraction] 21.7 % Low 35.0-47.0 [facility] Comment on above: Performed By: #### L AB296, [id number], [id number] ####Systems Mgr: JESSY OWENS ([id number])[address] Hemoglobin (Bld) [Mass/Vol] 7.5 g/dL Low 11.7-16.0 [facility] Comment on above: Performed By: #### L AB296, [id number], [id number] ####Systems Mgr: JESSY OWENS ([id number])[facility])[address] [place] [address] [place] IPF 3 Normal [facility] Comment on above: Performed By: #### L AB296, [id number], [id number] ####Systems Mgr: JESSY OWENS ([id number])[facility])[address] [place] [address] MCH (RBC) [Entitic mass] 34.2 pg High 26.0-34.0 [facility] Comment on above: Performed By: #### L AB296, [id number], [id number] ####Systems Mgr: JESSY OWENS ([id number])[facility])[address] [place] [address] MCHC 34.6 % Normal 30.5-36.0 [facility] Comment on above: Performed By: #### [place] AB296, [id number], [id number] ####Systems Mgr: JESSY OWENS ([id number])[facility])[address] [place] [address] MCV (RBC) [Entitic vol] 99.1 fL High 77.0-99.0 [facility] Comment on above: Performed By: #### L AB296, [id number], [id number] ####Systems Mgr: JESSY OWENS ([id number])[facility])[address] [place] [address] Platelet mean volume (Bld) [Entitic vol] 10.2 fL Normal 9.0-12.7 [facility] Comment on above: Performed By: #### L AB296, [id number], [id number] ####Systems Mgr: JESSY OWENS ([id number])[facility])[address] [place] [address] Platelets (Bld) [#/Vol] 69 10*3/uL Low 140-440 [facility] Comment on above: Performed By: #### L AB296, [id number], [id number] ####Systems Mgr: JESSY OWENS ([id number])[facility])[address] [place] [address] RBC (Bld) [#/Vol] 2.19 10*6/uL Low 3.80-5.20 [facility] Comment on above: Performed By: #### L AB296, [id number], [id number] ####Systems Mgr: JESSY OWENS ([id number])[facility])[address] [place] [address] WBC (Bld) [#/Vol] 7.3 10*3/uL Normal 3.6-10.7 [facility] Comment on above: Performed By: #### L AB296, [id number], [id number] ####Systems Mgr: JESSY OWENS ([id number])[facility] ([facility])[address] [place] [address] CRP [Mass/Vol]on 11-28-2024 Interpretation and review of laboratory results Abnormal [facility] Calcium.ionized [Moles/Vol]o n 11-28-2024 Calcium.ionized (Bld) [Moles/Vol] 4.5 mg/dL 4.30 - 5.20 mg/dL [facility] Interpretation and review of laboratory results Abnormal [facility] PH, IONIZED CALCIUM 7.5 High 7.31 - 7.46 [facility] Consulton 11-28-2024 Consult Normal [facility] HAPTOGLOBINon 11-28-2024 HAPTOGLOBIN 140 mg/dL Normal 50-270 [facility] Comment on above: Performed By: #### L AB89, LAB52, CXJ095, GMF164, BUU696, LAB15, LAB50, LAB96 ####Systems Mgr: JESSY OWENS ([phone])[facility] ([facility])[address] [place] [address] [place] LACTATE DEHYDROGENASEon 11-17 LDH [Catalytic activity/Vol] 178 U/L Normal 125-220 [facility] Comment on above: Performed By: #### L AB96 ####Systems Mgr: JESSY OWENS ([id number])[facility] ([facility])[address] [place] [address] [place] LDH [Catalytic activity/Vol] 186 U/L Normal 125-220 [facility] Comment on above: Performed By: #### L AB89, LAB52, BAV842, LYP225, OJS330, LAB15, LAB50, LAB96 ####Systems Mgr: JESSY OWENS ([id number])[facility] ([facility])[address] [place] [address] [place] LDH Lactate to pyruvate reac tion [Catalytic activity/Vol]on 11-28-2024 Interpretation and review of laboratory results Normal [facility] Laboratory - Chemistry and C hemistry - challengeon 11-28-2024 Magnesium [Mass/Vol] 1.8 mg/dL 1.6 - 2 .6 mg/dL [facility] LDH Lactate to pyruvate reaction [Catalytic activity/Vol] 178 U/L 125 - 220 U/L [facility] CRP [Mass/Vol] 30.3 mg/L High NINF - 5.0 mg/L [facility] Bilirubin [Mass/Vol] 1 mg/dL NINF - 1.2 mg/dL [facility] LDH Lactate to pyruvate reaction [Catalytic activity/Vol] 186 U/L 125 - 220 U/L [facility] Magnesium [Mass/Vol] 2.2 mg/dL 1.6 - 2 .6 mg/dL [facility] Laboratory - Drug toxicology on 11-28-2024 Vancomycin trough [Mass/Vol] 29.5 ug/mL [facility] Laboratory - Hematology and Cell countson 11-28-2024 Band form neutrophils (Bld) [#/Vol] 0.5 10*3/uL High NINF - 0.0 10*3/uL [facility] Band form neutrophils/100 WBC (Bld) 7 % High NINF - 0 % [facility] Lymphocytes (Bld) [#/Vol] 1.2 10*3/uL 1.0 - 4.3 10*3/uL [facility] Lymphocytes/100 WBC (Bld) 17 % 15 - 45 % [facility] Monocytes (Bld) [#/Vol] 0.2 10*3/uL 0.0 - 0.9 10*3/uL [facility] Monocytes/100 WBC (Bld) 3 % Low 5 - 13 % [facility] Myelocytes (Bld) [#/Vol] 0.1 10*3/uL High BRITTANI F - 0.0 10*3/uL [facility] Myelocytes/100 WBC (Bld) 1 % High NINF - 0 % [facility] Neutrophils (Bld) [#/Vol] 5.8 10*3/uL 1.8 - 7.5 10*3/uL [facility] Nucleated RBC/100 WBC (Bld) [Ratio] 2 % 0 - 2 % [facility] RBC morphology finding Nom (Bld) Normal [facility] Segmented neutrophils/100 WBC (Bld) 72 % 38 - 82 % [facility] Haptoglobin [Mass/Vol] 140 mg/dL 50 - 270 mg/dL [facility] Laboratory - Microbiology an d Antimicrobial susceptibilityOrdered By: Joon Alvarez on 11-28-2024 Bacteria identified Aer cx Nom (Unsp spec) Few enteric rula present [facility] MAGNESIUMon 11-28-2024 Magnesium [Mass/Vol] 1.8 mg/dL Normal 1.6-2.6 [facility] Comment on above: Result Comment: TANA R COMMENTS:Higher values can be expected in females during menses. Performed By: #### L AB15, OOB375, MBT049 ####Systems Mgr: JESSY OWENS ([phone])[facility])[address] [place] [address] Magnesium [Mass/Vol] 2.2 mg/dL Normal 1.6-2.6 [facility] Comment on above: Result Comment: TANA Wick COMMENTS:Higher values can be expected in females during menses. Performed By: #### L AB89, LAB52, HNJ510, VQR103, IYT596, LAB15, LAB50, LAB96 ####Systems Mgr: JESSY OWENS ([phone])[facility])[address] [place] [address] MANUAL DIFFERENTIAL (CELLAVI ZOIE)on 11-28-2024 BAND NEUTROPHILS TOTAL PER COUNTED LEUKOCYTES BY MANUAL COUNT 7 Normal [facility] Comment on above: Performed By: #### L AB296, [id number], [id number] ####Systems Mgr: JESSY OWENS ([id number])[facility])[address] [place] [address] BANDS (10*3/UL) IN BLOOD-CELLAVISION 0.5 10*3/uL High <=0.0 [facility] Comment on above: Performed By: #### L [id number], [id number], [id number] ####Systems Mgr: JESSY OWENS ([phone])[facility])[address] [place] [address] [place] BASOPHILS TOTAL PER COUNTED LEUKOCYTES BY MANUAL COUNT [facility] Comment on above: Performed By: #### L [id number], [id number], [id number] ####Systems Mgr: JESSY OWENS ([phone])[facility] ([facility])[address] [place] [address] [place] BLASTS TOTAL PER COUNTED LEUKOCYTES BY MANUAL COUNT [facility] Comment on above: Performed By: #### L [id number], [id number], [id number] ####Systems Mgr: JESSY OWENS ([phone])[facility] ([facility])[address] [place] [address] [place] EOSINOPHILS TOTAL PER COUNTED LEUKOCYTES BY MANUAL COUNT [facility] Comment on above: Performed By: #### L [id number], [id number], [id number] ####Systems Mgr: JESSY OWENS ([phone])[facility] H[facility]PITAL)[address] [place] [address] [place] LYMPHOCYTES (10*3/UL) IN BLOOD-CELLAVISION 1.2 10*3/uL Normal 1.0-4.3 [facility] Comment on above: Performed By: #### L AB296, [id number], [id number] ####Systems Mgr: JSESY OWENS ([phone])[facility] ([facility] [place] [address] [place] LYMPHOCYTES TOTAL PER COUNTED LEUKOCYTES BY MANUAL COUNT 17 Normal [facility] Comment on above: Performed By: #### L AB296, [id number], [id number] ####Systems Mgr: JESSY OWENS ([phone])[facility] ([facility])[address] [place] [address] [place] LYMPHOCYTES/100 LEUKOCYTES IN BLOOD-CELLAVISION 17 % Normal 15-45 [facility] Comment on above: Performed By: #### L AB296, [id number], [id number] ####Systems Mgr: JESSY OWENS ([phone])[facility] ([facility])[address] [place] [address] [place] METAMYELOCYTES TOTAL PER COUNTED LEUKOCYTES BY MANUAL COUNT [facility] Comment on above: Performed By: #### L AB296, [id number], [id number] ####Systems Mgr: JESSY OWENS ([phone])[facility])[address] [place] [address] MONOCYTES (10*3/UL) IN BLOOD-CELLAVISION 0.2 10*3/uL Normal 0.0-0.9 [facility] Comment on above: Performed By: #### L AB296, [id number], [id number] ####Systems Mgr: JESSY OWENS ([phone])[facility] ([facility])[address] [place] [address] [place] MONOCYTES TOTAL PER COUNTED LEUKOCYTES BY MANUAL COUNT 3 Normal [facility] Comment on above: Performed By: #### L AB296, [id number], [id number] ####Systems Mgr: JESSY OWENS ([id number])[facility] ([facility])[address] [place] [address] [place] MONOCYTES/100 LEUKOCYTES IN BLOOD-GIRMA 3 % Low 5-13 [facility] Comment on above: Performed By: #### L AB296, [id number], [id number] ####Systems Mgr: JESSY OWENS ([id number])[facility])[address] [place] [address] [place] MYELOCYTES (10*3/UL) IN BLOOD-CELLAVISION 0.1 10*3/uL High <=0.0 [facility] Comment on above: Performed By: #### L AB296, [id number], [id number] ####Systems Mgr: JESSY OWENS ([id number])[facility] ([facility])[address] [place] [address] [place] MYELOCYTES COUNTED BY MANUAL COUNT 1 Normal [facility] Comment on above: Performed By: #### L AB296, [id number], [id number] ####Systems Mgr: JESSY OWENS ([id number])[facility])[address] [place] [address] [place] MYELOCYTES/100 LEUKOCYTES IN BLOOD-CELLAVISION 1 % High <=0 [facility] Comment on above: Performed By: #### L AB296, [id number], [id number] ####Systems Mgr: JESSY OWENS ([phone])[facility] ([facility])[address] [place] [address] [place] NEUTROPHILS BAND FORM/100 LEUKOCYTES IN BLOOD-CELLAVISI 7 % High <=0 [facility] Comment on above: Performed By: #### L AB296, [id number], [id number] ####Systems Mgr: JESSY OWENS ([phone])[facility])[address] [place] [address] [place] NEUTROPHILS TOTAL PER COUNTED LEUKOCYTES BY MANUAL COUNT 72 [facility] Comment on above: Performed By: #### Davidson AB296, [id number], [id number] ####Systems Mgr: JESSY OWENS ([id number])[facility] ([facility])[address] [place] [address] [place] NUCLEATED ERYTHROCYTES/100 LEUKOCTES IN BLOOD-CELLAVISION 2 % Normal 0-2 [facility] Comment on above: Performed By: #### L AB296, [id number], [id number] ####Systems Mgr: JESSY OWENS ([id number])[facility])[address] [place] [address] [place] PROMYELOCYTES TOTAL PER COUNTED LEUKOCYTES BY MANUAL COUNT [facility] Comment on above: Performed By: #### L AB296, [id number], [id number] ####Systems Mgr: JESSY OWENS ([id number])[facility] ([facility])[address] [place] [address] [place] RBC MORPHOLOGY IN BLOOD Normal Normal [facility] Comment on above: Performed By: #### L AB296, [id number], [id number] ####Systems Mgr: JESSY OWENS ([id number])[facility] ([facility])[address] [place] [address] [place] SEGMENTED NEUTROPHILS (10*3/UL) IN BLOOD-CELLAVISION 5.8 10*3/uL Normal 1.8-7.5 [facility] Comment on above: Performed By: #### L AB296, [id number], [id number] ####Systems Mgr: JESSY OWENS ([id number])[facility])[address] [place] [address] SEGMENTED NEUTROPHILS/100 LEUKOCYTES-CE 72 % Normal 38-82 [facility] Comment on above: Performed By: #### L AB296, [id number], [id number] ####Systems Mgr: JESSY OWENS ([id number])[facility])[address] [place] [address] UNCLASSIFIED CELLS TOTAL PER COUNTED LEUKOCYTES BY MANUAL COUNT Normal [facility] Comment on above: Performed By: #### L AB296, [id number], [id number] ####Systems Mgr: JESSY OWENS ([id number])[facility])[address] [place] [address] VARIANT LYMPHOCYTES TOTAL PER COUNTED LEUKOCYTES BY MANUAL COUNT Normal [facility] Comment on above: Performed By: #### L AB296, [id number], [id number] ####Systems Mgr: JESSY OWENS ([phone])[facility])[address] [place] [address] Magnesium [Mass/Vol]on 11-28 Interpretation and review of laboratory results Normal [facility] No Panel Informationon 11-28 Bands Manual 7 [facility] Interpretation and review of laboratory results Abnormal [facility] Lymphocytes Manual 17 [facility] Monocytes Manual 3 [facility] Myelocytes Manual 1 [facility] Neutrophils Manual 72 [facility] Interpretation and review of laboratory results Normal [facility] Interpretation and review of laboratory results Normal [facility] Interpretation and review of laboratory results Abnormal [facility] PHOSPHORUSon 11-28-2024 Phosphate [Mass/Vol] 1.8 mg/dL Low 2.3-4.7 [facility] Comment on above: Performed By: #### L AB15, [id number], [id number] ####Systems Mgr: JESSY OWENS ([id number])[facility] ([facility])[address] [place] [address] [place] Phosphate [Mass/Vol] 1.4 mg/dL Low 2.3-4.7 [facility] Comment on above: Performed By: #### L AB89, LAB52, [id number], [id number], [id number], LAB15, LAB50, LAB96 ####Systems Mgr: JESSY OWENS ([id number])[facility])[address] [place] [address] [place] Phosphate [Moles/Vol]on 11-17 Interpretation and review of laboratory results Abnormal [facility] Phosphate [Mass/Vol] 1.8 mg/dL Low 2.3 - 4 .7 mg/dL [facility] Phosphate [Mass/Vol] 1.4 mg/dL Low 2.3 - 4 .7 mg/dL [facility] Progress Noteon 11-28-2024 Progress Note Vancomycin therapy has been discontinued by [address] on 11/28/24. Thank you for the consult. Pharmacy signing off for vancomycin dosing. Lindsey Vazquez [facility], PharmD Date: 11/28/24 Time: 3:06 PM Normal [facility] Progress Note Normal [facility] Progress Note Normal [facility] RETICULOCYTESon 11-28-2024 Reticulocytes/100 RBC (Bld) 1.84 % Normal [facility] Comment on above: Result Comment: Newb orn < 5%Adults 0.4 - 2.0% Performed By: #### L AB296, [id number], [id number] ####Systems Mgr: JESSY OWENS ([id number])[facility])[address] [place] [address] [place] Reticulocytes panel (Bld)on 11-28-2024 Reticulocytes/100 RBC (Bld) 1.84 % [facility] VANCOMYCIN, AUC TIMED DOSING on 11-28-2024 VANCOMYCIN, AUC 29.5 ug/mL Normal [facility] Comment on above: Result Comment: TANA Wick COMMENTS:@@ With morning labs, can be drawn anytime EXCEPT within 2 hours of completed dose. @@Toxicity is seen at concentrations >80-100 ug/mLTherapeutic (Peak) range: 20-40Therapeutic (Trough) range: 5-10 Performed By: #### L AB39 ####Systems Mgr: JESSY OWENS ([id number])[facility] ([facility])[address] [place] [address] Vancomycin trough [Mass/Vol] on 11-28-2024 [facility] 30on 11-27-2024 30 Normal [facility] BASIC METABOLIC PANELon 11-17 Anion gap [Moles/Vol] 8 mmol/L Normal 3-13 [facility] Comment on above: Performed By: #### L AB15 ####Systems Mgr: JESSY OWENS ([id number])[facility] ([facility])[address] [place] [address] Calcium [Mass/Vol] 8.3 mg/dL Low 8.8-10.0 [facility] Comment on above: Performed By: #### L AB15 ####Systems Mgr: JESSY OWENS ([phone])[facility])[address] [place] [address] Chloride [Moles/Vol] 109 mmol/L High 98-107 [facility] Comment on above: Performed By: #### L AB15 ####Systems Mgr: JESSY OWENS ([id number])[facility] ([facility])[address] [place] [address] [place] CO2 [Moles/Vol] 21 mmol/L Low 23-31 [facility] Comment on above: Performed By: #### L AB15 ####Systems Mgr: JESSY OWENS ([phone])[facility] ([facility])[address] [place] [address] Creatinine [Mass/Vol] 0.60 mg/dL Normal 0.57-1.11 [facility] Comment on above: Performed By: #### L AB15 ####Systems Mgr: JESSY OWENS ([phone])[facility])[address] [place] [address] GLOMERULAR FILTRATION RATE ML/MIN/1.73 SQ M.PREDICTED >90.0 Normal >60.0 [facility] Comment on above: Result Comment: Calc ulation based on the Chronic Kidney Disease Epidemiology Collaboration (CKD-EPI) equation refit without adjustment for race Performed By: #### L AB15 ####Systems Mgr: JESSY OWENS ([id number])[facility])[address] [place] [address] Glucose [Mass/Vol] 150 mg/dL High 82-115 [facility] Comment on above: Performed By: #### L AB15 ####Systems Mgr: JESSY OWENS ([phone])[address] Potassium [Moles/Vol] 4.0 mmol/L Normal 3.5-5.1 [facility] Comment on above: Result Comment: [facility] potassium values may be up to 0.5 mmol/L lower than serum values. Performed By: #### L AB15 ####Systems Mgr: JESSY OWENS ([phone])[facility] ([facility])[address] [place] [address] Sodium [Moles/Vol] 138 mmol/L Normal 136-145 [facility] Comment on above: Performed By: #### L AB15 ####Systems Mgr: JESSY OWENS ([phone])[facility])[address] [place] [address] [place] Urea nitrogen [Mass/Vol] 17 mg/dL Normal 9-23 [facility] Comment on above: Performed By: #### L AB15 ####Systems Mgr: JESSY OWENS ([id number])[facility])[address] [place] [address] Anion gap [Moles/Vol] 10 mmol/L Normal 3-13 [facility] Comment on above: Performed By: #### L AB15, [id number] ####Systems Mgr: JESSY [id number])[facility])[address] [place] [address] Calcium [Mass/Vol] 8.3 mg/dL Low 8.8-10.0 [facility] Comment on above: Performed By: #### L AB15, [id number] ####Systems Mgr: JESSY OWENS ([id number])[facility])[address] [place] [address] Chloride [Moles/Vol] 108 mmol/L High 98-107 [facility] Comment on above: Performed By: #### L AB15, [id number] ####Systems Mgr: JESSY OWENS ([id number])[facility] ([facility])[address] [place] [address] CO2 [Moles/Vol] 23 mmol/L Normal 23-31 [facility] Comment on above: Performed By: #### L AB15, [id number] ####Systems Mgr: JESSY OWENS ([id number])[facility] ([facility])[address] [place] [address] Creatinine [Mass/Vol] 0.54 mg/dL Low 0.57-1.11 [facility] Comment on above: Performed By: #### L AB15, [id number] ####Systems Mgr: JESSY OWENS ([phone])[facility])[address] [place] [address] GLOMERULAR FILTRATION RATE ML/MIN/1.73 SQ M.PREDICTED >90.0 Normal >60.0 [facility] Comment on above: Result Comment: Calc ulation based on the Chronic Kidney Disease Epidemiology Collaboration (CKD-EPI) equation refit without adjustment for race Performed By: #### L AB15, [id number] ####Systems Mgr: JESSY OWENS ([id number])[facility])[address] [place] [address] [place] Glucose [Mass/Vol] 151 mg/dL High 82-115 [facility] Comment on above: Performed By: #### L AB15, [id number] ####Systems Mgr: JESSY [id number])[facility])[address] [place] [address] Potassium [Moles/Vol] 3.4 mmol/L Low 3.5-5.1 [facility] Comment on above: Result Comment: [facility] potassium values may be up to 0.5 mmol/L lower than serum values. Performed By: #### L AB15, [id number] ####Systems Mgr: JESSY OWENS ([phone])[facility] ([facility])[address] [place] [address] Sodium [Moles/Vol] 141 mmol/L Normal 136-145 [facility] Comment on above: Performed By: #### L AB15, [id number] ####Systems Mgr: JESSY OWENS ([id number])[facility])[address] [place] [address] Urea nitrogen [Mass/Vol] 16 mg/dL Normal 9-23 [facility] Comment on above: Performed By: #### L AB15, [id number] ####Systems Mgr: JESSY OWENS ([phone])[facility] ([facility])[address] [place] [address] BLOOD TYPE AND SCREEN GELon 11-27-2024 ABO GROUPING A Normal [facility] Comment on above: Performed By: #### L AB276 ####Systems Mgr: JESSY OWENS ([phone])[facility] ([facility])[address] [place] [address] RH TYPE IN BLOOD Positive Normal [facility] Comment on above: Performed By: #### L AB276 ####Systems Mgr: JESSY OWENS ([id number])[facility] ([facility])[address] [place] [address] Bacteria identified Cx Nom ( U)Ordered By: Ange Hennessy on 11-27-2024 Interpretation and review of laboratory results Abnormal [facility] Basic metabolic 1998 panelon 11-27-2024 Anion gap [Moles/Vol] 8 mmol/L 3 - 13 mmol/L [facility] Calcium [Mass/Vol] 8.3 mg/dL Low 8.8 - 10. 0 mg/dL [facility] Chloride [Moles/Vol] 109 mmol/L High 98 - 10 7 mmol/L [facility] CO2 [Moles/Vol] 21 mmol/L Low 23 - 31 mmol/L [facility] Creatinine [Mass/Vol] 0.6 mg/dL 0.57 - 1.11 mg/dL [facility] GFR/1.73 sq M.predicted (S/P/Bld) [Vol rate/Area] - PINF [facility] Glucose [Mass/Vol] 150 mg/dL High 82 - 115 mg/dL [facility] Interpretation and review of laboratory results Abnormal [facility] Potassium [Moles/Vol] 4 mmol/L 3.5 - 5.1 mmol/L [facility] Sodium [Moles/Vol] 138 mmol/L 136 - 145 mmol/L [facility] Urea nitrogen [Mass/Vol] 17 mg/dL 9 - 23 mg/d L [facility] Anion gap [Moles/Vol] 12 mmol/L 3 - 13 mmol/L [facility] Calcium [Mass/Vol] 8.4 mg/dL Low 8.8 - 10. 0 mg/dL [facility] Chloride [Moles/Vol] 108 mmol/L High 98 - 10 7 mmol/L [facility] CO2 [Moles/Vol] 19 mmol/L Low 23 - 31 mmol/L [facility] Creatinine [Mass/Vol] 0.59 mg/dL 0.57 - 1.11 mg/dL [facility] GFR/1.73 sq M.predicted (S/P/Bld) [Vol rate/Area] - PINF [facility] Glucose [Mass/Vol] 188 mg/dL High 82 - 115 mg/dL [facility] Interpretation and review of laboratory results Abnormal [facility] Potassium [Moles/Vol] 3.3 mmol/L Low 3.5 - 5.1 mmol/L [facility] Sodium [Moles/Vol] 139 mmol/L 136 - 145 mmol/L [facility] Urea nitrogen [Mass/Vol] 23 mg/dL 9 - 23 mg/d L [facility] Basic metabolic 1998 panelOr dered By: Sadaf De La Cruz on 11-27-2024 Anion gap [Moles/Vol] 10 mmol/L 3 - 13 mmol/L [facility] Calcium [Mass/Vol] 8.3 mg/dL Low 8.8 - 10. 0 mg/dL [facility] Chloride [Moles/Vol] 108 mmol/L High 98 - 10 7 mmol/L [facility] CO2 [Moles/Vol] 23 mmol/L 23 - 31 mmol/L [facility] Creatinine [Mass/Vol] 0.54 mg/dL Low 0.57 - 1.11 mg/dL [facility] GFR/1.73 sq M.predicted (S/P/Bld) [Vol rate/Area] - PINF [facility] Glucose [Mass/Vol] 151 mg/dL High 82 - 115 mg/dL [facility] Interpretation and review of laboratory results Abnormal [facility] Potassium [Moles/Vol] 3.4 mmol/L Low 3.5 - 5.1 mmol/L [facility] Sodium [Moles/Vol] 141 mmol/L 136 - 145 mmol/L [facility] Urea nitrogen [Mass/Vol] 16 mg/dL 9 - 23 mg/d L [facility] Blood type and Crossmatch nery campoverde (Bld)on 11-27-2024 ABO group Nom (Bld) A [facility] Blood group antibody screen GEL Ql Negative [facility] D Ag Ql (RBC) Positive [facility] CALCIUM, IONIZEDon CALCIUM IONIZED 4.30 mg/dL Normal 4.30-5.20 [facility] Comment on above: Performed By: #### L AB54 ####Systems Mgr: JESSY OWENS ([phone])[address] PH, IONIZED CALCIUM 7.56 High 7.31-7.46 [facility] Comment on above: Performed By: #### L AB54 ####Systems Mgr: JESSY OWENS ([phone])[facility] ([facility])[address] [place] [address] CBC W Auto Differential pane l (Bld)Ordered By: Lashonda Curran on 11-27-2024 Erythrocyte distribution width (RBC) [Ratio] 13.5 % 11.5 - 15.0 % [facility] Hematocrit (Bld) [Volume fraction] 19.6 % Low 35.0 - 47.0 % [facility] Hemoglobin (Bld) [Mass/Vol] 6.8 g/dL Critically low 11.7 - 16.0 g/dL [facility] Interpretation and review of laboratory results Abnormal [facility] IPF 2 [facility] MCH (RBC) [Entitic mass] 34.5 pg High 26. 0 - 34.0 pg [facility] MCHC (RBC) [Mass/Vol] 34.7 % 30.5 - 36.0 % [facility] MCV (RBC) [Entitic vol] 99.5 fL High 77.0 - 99.0 fL [facility] Platelet mean volume (Bld) [Entitic vol] 10 fL 9.0 - 12.7 fL [facility] Platelets (Bld) [#/Vol] 103 10*3/uL Low 140 - 440 10*3/uL [facility] RBC (Bld) [#/Vol] 1.97 10*6/uL Low 3.80 - 5.2 0 10*6/uL [facility] WBC (Bld) [#/Vol] 8.4 10*3/uL 3.6 - 10.7 10*3/uL [facility] CBC WITH AUTO DIFFERENTIALon 11-27-2024 Erythrocyte distribution width (RBC) [Ratio] 13.5 % Normal 11.5-15.0 [facility] Comment on above: Performed By: #### L [id number], [id number] ####Systems Mgr: JESSY OWENS ([id number])[address] Hematocrit (Bld) [Volume fraction] 19.6 % Low 35.0-47.0 [facility] Comment on above: Performed By: #### L [id number], [id number] ####Systems Mgr: JESSY OWENS ([id number])[address] Hemoglobin (Bld) [Mass/Vol] 6.8 g/dL Critically low 11.7-16.0 [facility] Comment on above: Performed By: #### L [id number], [id number] ####Systems Mgr: JESSY [id number])[facility])[address] [place] [address] IPF 2 Normal [facility] Comment on above: Performed By: #### Davidson [id number], [id number] ####Systems Mgr: JESSY OWENS ([id number])[facility])[address] [place] [address] MCH (RBC) [Entitic mass] 34.5 pg High 26.0-34.0 [facility] Comment on above: Performed By: #### Davidson MCCLELLAN, [id number] ####Systems Mgr: JESSY OWENS ([id number])[facility] ([facility])[address] [place] [address] MCHC 34.7 % Normal 30.5-36.0 [facility] Comment on above: Performed By: #### Davidson MCCLELLAN, [id number] ####Systems Mgr: JESSY OWENS ([id number])[facility] ([facility])[address] [place] [address] MCV (RBC) [Entitic vol] 99.5 fL High 77.0-99.0 [facility] Comment on above: Performed By: #### Davidson MCCLELLAN, [id number] ####Systems Mgr: JESSY OWENS ([id number])[facility] ([facility])[address] [place] [address] Platelet mean volume (Bld) [Entitic vol] 10.0 fL Normal 9.0-12.7 [facility] Comment on above: Performed By: #### Davidson MCCLELLAN, [id number] ####Systems Mgr: JESSY OWENS ([id number])[facility] ([facility])[address] [place] [address] Platelets (Bld) [#/Vol] 103 10*3/uL Low 140-440 [facility] Comment on above: Performed By: #### Davidson [id number], [id number] ####Systems Mgr: JESSY OWENS ([id number])[facility])[address] [place] [address] RBC (Bld) [#/Vol] 1.97 10*6/uL Low 3.80-5.20 [facility] Comment on above: Performed By: #### L [id number], [id number] ####Systems Mgr: JESSY OWENS ([id number])[facility] ([facility])[address] [place] [address] WBC (Bld) [#/Vol] 8.4 10*3/uL Normal 3.6-10.7 [facility] Comment on above: Performed By: #### Davidson ED7523, [id number] ####Systems Mgr: JESSY OWENS ([id number])[facility] ([facility])[address] [place] [address] COMPREHENSIVE METABOLIC PANE Neo 11-27-2024 Albumin [Mass/Vol] 2.3 g/dL Low 3.4-4.8 [facility] Comment on above: Performed By: #### Davidson ABNitza, [id number], [id number] ####Systems Mgr: JESSY OWENS ([phone])[facility] ([facility])[address] [place] [address] ALP [Catalytic activity/Vol] 82 U/L Normal 40-150 [facility] Comment on above: Performed By: #### Davidson ABNitza, [id number], LAB17 ####Systems Mgr: JESSY OWENS ([phone])[facility] ([facility])[address] [place] [address] ALT [Catalytic activity/Vol] 10 U/L Normal <30 [facility] Comment on above: Performed By: #### Davidson AB113, [id number], LAB17 ####Systems Mgr: JESSY OWENS ([id number])[facility] ([facility])[address] [place] [address] Anion gap [Moles/Vol] 10 mmol/L Normal 3-13 [facility] Comment on above: Performed By: #### L AB113, [id number], LAB17 ####Systems Mgr: JESSY OWENS ([phone])[facility] ([facility])[address] [place] [address] [place] AST [Catalytic activity/Vol] 18 U/L Normal <34 [facility] Comment on above: Performed By: #### Davidson ABNitza, [id number], LAB17 ####Systems Mgr: JESSY OWENS ([phone])[facility] ([facility])[address] [place] [address] [place] Bilirubin [Mass/Vol] 1.0 mg/dL Normal <1.2 [facility] Comment on above: Performed By: #### Davidson ABNitza, [id number], [id number] ####Systems Mgr: JESSY OWENS ([phone])[facility] ([facility])[address] [place] [address] [place] Calcium [Mass/Vol] 8.3 mg/dL Low 8.8-10.0 [facility] Comment on above: Performed By: #### Davidson BALBUENA, [id number], [id number] ####Systems Mgr: JESSY OWENS ([phone])[facility] ([facility])[address] [place] [address] [place] Chloride [Moles/Vol] 108 mmol/L High 98-107 [facility] Comment on above: Performed By: #### Davidson BALBUENA, [id number], [id number] ####Systems Mgr: JESSY OWENS ([phone])[facility] ([facility])[address] [place] [address] [place] CO2 [Moles/Vol] 22 mmol/L Low 23-31 [facility] Comment on above: Performed By: #### Davidson BALBUEAN, [id number], [id number] ####Systems Mgr: JESSY OWENS ([phone])[facility] ([facility])[address] [place] [address] [place] Creatinine [Mass/Vol] 0.59 mg/dL Normal 0.57-1.11 [facility] Comment on above: Performed By: #### Davidson AB113, [id number], LAB17 ####Systems Mgr: JESSY OWENS ([phone])[facility] ([facility])[address] [place] [address] [place] GLOMERULAR FILTRATION RATE ML/MIN/1.73 SQ M.PREDICTED >90.0 Normal >60.0 [facility] Comment on above: Result Comment: Calc ulation based on the Chronic Kidney Disease Epidemiology Collaboration (CKD-EPI) equation refit without adjustment for race Performed By: #### L AB113, [id number], LAB17 ####Systems Mgr: JESSY OWENS ([phone])[facility])[address] [place] [address] Glucose [Mass/Vol] 168 mg/dL High 82-115 [facility] Comment on above: Performed By: #### L AB113, [id number], LAB17 ####Systems Mgr: JESSY OWENS ([phone])[facility])[address] [place] [address] Potassium [Moles/Vol] 2.4 mmol/L Critically low 3.5-5.1 [facility] Comment on above: Result Comment: Plas ma potassium values may be up to 0.5 mmol/L lower than serum values. Performed By: #### Davidson BALBUENA, [id number], LAB17 ####Systems Mgr: JESSY OWENS ([phone])[facility] ([facility])[address] [place] [address] Protein [Mass/Vol] 5.1 g/dL Low 6.4-8.3 [facility] Comment on above: Performed By: #### Davidson AB113, [id number], LAB17 ####Systems Mgr: JESSY OWENS ([id number])[facility])[address] [place] [address] [place] Sodium [Moles/Vol] 140 mmol/L Normal 136-145 [facility] Comment on above: Performed By: #### L AB113, [id number], LAB17 ####Systems Mgr: JESSY OWENS ([phone])[facility])[address] [place] [address] [place] Urea nitrogen [Mass/Vol] 17 mg/dL Normal 9-23 [facility] Comment on above: Performed By: #### L AB113, [id number], LAB17 ####Systems Mgr: JESSY OWENS ([phone])[facility])[address] [place] [address] Calcium.ionized [Moles/Vol]o n 11-27-2024 Calcium.ionized (Bld) [Moles/Vol] 4.3 mg/dL 4.30 - 5.20 mg/dL [facility] Interpretation and review of laboratory results Abnormal [facility] PH, IONIZED CALCIUM 7.56 High 7.31 - 7.46 [facility] Comprehensive metabolic 1998 panelOrdered By: Rob Dunn on 11-27-2024 Albumin [Mass/Vol] 2.3 g/dL Low 3.4 - 4.8 g/dL [facility] ALP [Catalytic activity/Vol] 82 U/L 40 - 150 U/L [facility] ALT [Catalytic activity/Vol] 10 [facility] Anion gap [Moles/Vol] 10 mmol/L 3 - 13 mmol/L [facility] AST [Catalytic activity/Vol] 18 U/L [facility] U/L [facility] Bilirubin [Mass/Vol] 1 mg/dL NINF - 1.2 mg/dL [facility] Calcium [Mass/Vol] 8.3 mg/dL Low 8.8 - 10. 0 mg/dL [facility] Chloride [Moles/Vol] 108 mmol/L High 98 - 10 7 mmol/L [facility] CO2 [Moles/Vol] 22 mmol/L Low 23 - 31 mmol/L [facility] Creatinine [Mass/Vol] 0.59 mg/dL 0.57 - 1.11 mg/dL [facility] GFR/1.73 sq M.predicted (S/P/Bld) [Vol rate/Area] - PINF [facility] Glucose [Mass/Vol] 168 mg/dL High 82 - 115 mg/dL [facility] Interpretation and review of laboratory results Abnormal [facility] Potassium [Moles/Vol] 2.4 mmol/L Critically low 3.5 - 5.1 mmol/L [facility] Protein [Mass/Vol] 5.1 g/dL Low 6.4 - 8.3 g/dL [facility] Sodium [Moles/Vol] 140 mmol/L 136 - 145 mmol/L [facility] Urea nitrogen [Mass/Vol] 17 mg/dL 9 - 23 mg/d L [facility] ECG 12-LEADon 11-27-2024 ECG 12-LEAD IMPRESSION: Sinus rhythm MOBITZ I AV BLOCK (WENCKEBACH Nonspecific intraventricular conduction delay Nonspecific repol abnormality, diffuse leads Electronically Signed On 11-27-2024 12:45:25 EDT by Saloninahid Miguel [facility] ECG 12-LEAD IMPRESSION: SINUS RHYTHM Ventricular premature complex Nonspecific intraventricular conduction delay Nonspecific repol abnormality, diffuse leads Borderline prolonged QT interval Electronically Signed On 11-27-2024 12:44:23 EDT by Saloni Miguel [facility] HEMOGLOBIN AND HEMATOCRIT, B LOODon 11-27-2024 Hematocrit (Bld) [Volume fraction] 21.1 % Low 35.0-47.0 [facility] Comment on above: Order Comment: Recom mend 1 hour post transfusion Performed By: #### L [id number] ####Systems Mgr: JESSY OWENS ([phone])[facility] ([facility])[address] [place] [address] Hemoglobin (Bld) [Mass/Vol] 7.3 g/dL Low 11.7-16.0 [facility] Comment on above: Order Comment: Recom mend 1 hour post transfusion Performed By: #### L [id number] ####Systems Mgr: JESSY OWENS ([phone])[facility] ([facility])[address] [place] [address] Hemoglobin (Bld) [Mass/Vol]O rdered By: Skylar Rodriguez on 11-27-2024 Hematocrit (Bld) [Volume fraction] 21.1 % Low 35.0 - 47.0 % [facility] Interpretation and review of laboratory results Abnormal [facility] Laboratory - Chemistry and C hemistry - challengeon 11-27-2024 Procalcitonin [Mass/Vol] 0.12 ng/mL High BRITTANI F - 0.07 ng/mL [facility] Magnesium [Mass/Vol] 1.5 mg/dL Low 1.6 - 2 .6 mg/dL [facility] Laboratory - Hematology and Cell countsOrdered By: Skylar Rodriguez on 11-27-2024 Hemoglobin (Bld) [Mass/Vol] 7.3 g/dL Low 11.7 - 16.0 g/dL [facility] Laboratory - Hematology and Cell countson 11-27-2024 Lymphocytes (Bld) [#/Vol] 0.9 10*3/uL Low 1.0 - 4.3 10*3/uL [facility] Lymphocytes/100 WBC (Bld) 11 % Low 15 - 45 % [facility] Monocytes (Bld) [#/Vol] 0.2 10*3/uL 0.0 - 0.9 10*3/uL [facility] Monocytes/100 WBC (Bld) 2 % Low 5 - 13 % [facility] Neutrophils (Bld) [#/Vol] 7.3 10*3/uL 1.8 - 7.5 10*3/uL [facility] Nucleated RBC/100 WBC (Bld) [Ratio] 2 % 0 - 2 % [facility] RBC morphology finding Nom (Bld) Normal [facility] Segmented neutrophils/100 WBC (Bld) 87 % High 38 - 82 % [facility] Laboratory - Microbiology an d Antimicrobial susceptibilityOrdered By: Ange Hennessy on 11-27-2024 Bacteria identified Cx Nom (U) Normal urogenital rula present [facility] Bacteria identified Cx Nom (U) 10,000-50,000 CFU/mL Escherichia coli Abnormal [facility] MAGNESIUMon 11-27-2024 Magnesium [Mass/Vol] 1.5 mg/dL Low 1.6-2.6 [facility] Comment on above: Result Comment: TANA Wick COMMENTS:Higher values can be expected in females during menses. Performed By: #### L AB113, [id number], LAB17 ####Systems Mgr: JESSY OWENS ([phone])[address] MANUAL DIFFERENTIAL (CELLAVI ZOIE)on 11-27-2024 BAND NEUTROPHILS TOTAL PER COUNTED LEUKOCYTES BY MANUAL COUNT [facility] Comment on above: Performed By: #### L [id number], [id number] ####Systems Mgr: JESSY OWENS ([phone])[facility] ([facility])[address] [place] [address] BASOPHILS TOTAL PER COUNTED LEUKOCYTES BY MANUAL COUNT Normal [facility] Comment on above: Performed By: #### L [id number], [id number] ####Systems Mgr: JESSY OWENS ([phone])[facility] ([facility])[address] [place] [address] [place] BLASTS TOTAL PER COUNTED LEUKOCYTES BY MANUAL COUNT [facility] Comment on above: Performed By: #### L [id number], [id number] ####Systems Mgr: JESSY OWENS ([id number])[facility] ([facility])[address] [place] [address] [place] EOSINOPHILS TOTAL PER COUNTED LEUKOCYTES BY MANUAL COUNT Normal [facility] Comment on above: Performed By: #### L [id number], [id number] ####Systems Mgr: JESSY OWENS ([id number])[facility] ([facility])[address] [place] [address] [place] LYMPHOCYTES (10*3/UL) IN BLOOD-CELLAVISION 0.9 10*3/uL Low 1.0-4.3 [facility] Comment on above: Performed By: #### L [id number], [id number] ####Systems Mgr: JESSY OWENS ([id number])[facility])[address] [place] [address] [place] LYMPHOCYTES TOTAL PER COUNTED LEUKOCYTES BY MANUAL COUNT 11 [facility] Comment on above: Performed By: #### L [id number], [id number] ####Systems Mgr: JSESY OWENS ([id number])[facility])[address] [place] [address] [place] LYMPHOCYTES/100 LEUKOCYTES IN BLOOD-CELLAVISION 11 % Low 15-45 [facility] Comment on above: Performed By: #### L [id number], [id number] ####Systems Mgr: JESSY OWENS ([id number])[facility] ([facility])[address] [place] [address] [place] METAMYELOCYTES TOTAL PER COUNTED LEUKOCYTES BY MANUAL COUNT [facility] Comment on above: Performed By: #### L [id number], [id number] ####Systems Mgr: JESSY OWENS ([phone])[facility])[address] [place] [address] [place] MONOCYTES (10*3/UL) IN BLOOD-CELLAVISION 0.2 10*3/uL Normal 0.0-0.9 [facility] Comment on above: Performed By: #### L [id number], [id number] ####Systems Mgr: JESSY OWENS ([id number])[facility])[address] [place] [address] [place] MONOCYTES TOTAL PER COUNTED LEUKOCYTES BY MANUAL COUNT 2 Normal [facility] Comment on above: Performed By: #### L [id number], [id number] ####Systems Mgr: JESSY OWENS ([phone])[facility] ([facility])[address] [place] [address] [place] MONOCYTES/100 LEUKOCYTES IN BLOOD-GIRMA 2 % Low 5-13 [facility] Comment on above: Performed By: #### L [id number], [id number] ####Systems Mgr: JESSY OWENS ([id number])[facility] ([facility])[address] [place] [address] MYELOCYTES COUNTED BY MANUAL COUNT [facility] Comment on above: Performed By: #### L [id number], [id number] ####Systems Mgr: JESSY OWENS ([phone])[facility] ([facility])[address] [place] [address] [place] NEUTROPHILS TOTAL PER COUNTED LEUKOCYTES BY MANUAL COUNT 87 Normal [facility] Comment on above: Performed By: #### L [id number], [id number] ####Systems Mgr: JESSY OWENS ([phone])[facility] ([facility])[address] [place] [address] [place] NUCLEATED ERYTHROCYTES/100 LEUKOCTES IN BLOOD-CELLAVISION 2 % Normal 0-2 [facility] Comment on above: Performed By: #### L [id number], [id number] ####Systems Mgr: JESSY OWENS ([phone])[facility] ([facility])[address] [place] [address] [place] PROMYELOCYTES TOTAL PER COUNTED LEUKOCYTES BY MANUAL COUNT [facility] Comment on above: Performed By: #### L [id number], [id number] ####Systems Mgr: JESSY OWENS ([id number])[facility] ([facility])[address] [place] [address] RBC MORPHOLOGY IN BLOOD Normal Normal [facility] Comment on above: Performed By: #### L [id number], [id number] ####Systems Mgr: JESSY OWENS ([id number])[facility] ([facility])[address] [place] [address] SEGMENTED NEUTROPHILS (10*3/UL) IN BLOOD-CELLAVISION 7.3 10*3/uL Normal 1.8-7.5 [facility] Comment on above: Performed By: #### L [id number], [id number] ####Systems Mgr: JESSY OWENS ([id number])[facility] ([facility])[address] [place] [address] SEGMENTED NEUTROPHILS/100 LEUKOCYTES-CE 87 % High 38-82 [facility] Comment on above: Performed By: #### Davidson [id number], [id number] ####Systems Mgr: JESSY OWENS ([phone])[facility] ([facility])[address] [place] [address] UNCLASSIFIED CELLS TOTAL PER COUNTED LEUKOCYTES BY MANUAL COUNT [facility] Comment on above: Performed By: #### L [id number], [id number] ####Systems Mgr: JESSY OWENS ([phone])[facility] ([facility])[address] [place] [address] VARIANT LYMPHOCYTES TOTAL PER COUNTED LEUKOCYTES BY MANUAL COUNT [facility] Comment on above: Performed By: #### L [id number], [id number] ####Systems Mgr: JESSY OWENS ([phone])[facility] ([facility])[address] [place] [address] Magnesium [Mass/Vol]on 11-27 [facility] No Panel Informationon 11-27 P Altheimer -16 degrees [facility] CO Interval 252 ms [facility] QRS Altheimer -7 degrees [facility] QRSD Interval 121 ms [facility] QT Interval 485 ms [facility] QTC Interval 507 ms [facility] T Wave Altheimer 87 degrees [facility] [employer] CV EPIPHANY [facility] Shar[employer] [facility] Shar[employer] CV EPIPHANY [facility] Blood Expiration Date [id number] [facility] Crossmatch interpretation COMP [facility] Dispense Status Transfused [employer] lth Product Blood Type 6200 [facility] PRODUCT CODE [id number] [facility] Unit ABO A [facility] Unit Number [id number] [facility] RH Positive [facility] Unit Volume 300 mL [facility] Interpretation and review of laboratory results Abnormal [facility] Interpretation and review of laboratory results Abnormal [facility] Lymphocytes Manual 11 [facility] Monocytes Manual 2 [facility] Neutrophils Manual 87 [facility] No Panel InformationOrdered By: Saloni Miguel on 11-27-2024 P Altheimer 0 degrees [employer] Work Phone: CO Interval 0 ms [employer] Work Phone: QRS Altheimer -20 degrees [employer] Work Phone: QRSD Interval 118 ms [facility] [employer] Work Phone: QT Interval 479 ms [employer] Work Phone: QTC Interval 497 ms [employer] Work Phone: T Wave Altheimer 168 degrees [employer] Work Phone: [employer] Work Phone: PHOSPHORUSon 11-27-2024 Phosphate [Mass/Vol] mg/dL Low 2.3-4.7 [facility] [employer] [facility] Comment on above: Performed By: #### L AB113, [id number], LAB17 ####Systems Mgr: JESSY OWENS ([phone])[facility] ([address] PROCALCITONIN TESTon 025 PROCALCITONIN 0.12 ng/mL High <0.07 [facility] [employer] [facility] Comment on above: Result Comment: ORDE R COMMENTS:PCT <0.50 = Low risk of severe sepsis and/or septic shock.PCT >2.00 = High risk of severe sepsis and/or septic shock. Performed By: #### L AB15, [id number] ####Systems Mgr: JESSY OWENS ([phone])[facility] ([facility])[address] [place] [address] [place] Phosphate [Moles/Vol]on 11-17 Phosphate [Mass/Vol] mg/dL Low 2.3 - 4 .7 mg/dL [facility] Procalcitonin [Mass/Vol]on 11-27-2024 Interpretation and review of laboratory results Abnormal [facility] Progress Noteon 11-27-2024 Progress Note Normal [facility] Progress Note Normal [facility] Progress Note Normal [facility] Vital signson 11-27-2024 Heart rate 59 /min bpm [facility] Vital signsOrdered By: Saloni Miguel on 11-27-2024 Heart rate 65 /min bpm [facility] Work Phone: 30on 11-26-2024 30 Normal [facility] BASIC METABOLIC PANELon 11-17 Anion gap [Moles/Vol] 12 mmol/L Normal 3-13 [facility] Comment on above: Performed By: #### L AB15 ####Systems Mgr: JESSY OWENS ([id number])[facility] ([facility])[address] [place] [address] [place] Calcium [Mass/Vol] 8.4 mg/dL Low 8.8-10.0 [facility] Comment on above: Performed By: #### L AB15 ####Systems Mgr: JESSY OWENS ([id number])[facility] ([facility])[address] [place] [address] [place] Chloride [Moles/Vol] 108 mmol/L High 98-107 [facility] Comment on above: Performed By: #### L AB15 ####Systems Mgr: JESSY OWENS ([phone])[facility] ([facility])[address] [place] [address] [place] CO2 [Moles/Vol] 19 mmol/L Low 23-31 [facility] Comment on above: Performed By: #### L AB15 ####Systems Mgr: JESSY OWENS ([id number])[facility] ([facility])[address] [place] [address] Creatinine [Mass/Vol] 0.59 mg/dL Normal 0.57-1.11 [facility] Comment on above: Performed By: #### L AB15 ####Systems Mgr: JESSY OWENS ([phone])[facility])[address] [place] [address] [place] GLOMERULAR FILTRATION RATE ML/MIN/1.73 SQ M.PREDICTED >90.0 Normal >60.0 [facility] Comment on above: Result Comment: Calc ulation based on the Chronic Kidney Disease Epidemiology Collaboration (CKD-EPI) equation refit without adjustment for race Performed By: #### L AB15 ####Systems Mgr: JESSY OWENS ([id number])[facility] ([facility])[address] [place] [address] Glucose [Mass/Vol] 188 mg/dL High 82-115 [facility] Comment on above: Performed By: #### L AB15 ####Systems Mgr: JESSY OWENS ([phone])[facility] ([facility])[address] [place] [address] [place] Potassium [Moles/Vol] 3.3 mmol/L Low 3.5-5.1 [facility] Comment on above: Result Comment: [facility] potassium values may be up to 0.5 mmol/L lower than serum values. Performed By: #### L AB15 ####Systems Mgr: JESSY OWENS ([phone])[facility] ([facility])[address] [place] [address] [place] Sodium [Moles/Vol] 139 mmol/L Normal 136-145 [facility] Comment on above: Performed By: #### L AB15 ####Systems Mgr: JESSY OWENS ([phone])[facility])[address] [place] [address] [place] Urea nitrogen [Mass/Vol] 23 mg/dL Normal 9-23 [facility] Comment on above: Performed By: #### L AB15 ####Systems Mgr: JESSY [id number])[facility] ([facility])[address] [place] [address] Anion gap [Moles/Vol] 9 mmol/L Normal 3-13 [facility] Comment on above: Performed By: #### L AB15 ####Systems Mgr: JESSY OWENS ([phone])[facility] [place] [address] Calcium [Mass/Vol] 8.3 mg/dL Low 8.8-10.0 [facility] Comment on above: Performed By: #### L AB15 ####Systems Mgr: JESSY OWENS ([id number])[facility] [place] [address] Chloride [Moles/Vol] 109 mmol/L High 98-107 [facility] Comment on above: Performed By: #### L AB15 ####Systems Mgr: JESSY OWNES ([id number])[facility] ([facility])[address] [place] [address] CO2 [Moles/Vol] 18 mmol/L Low 23-31 [facility] Comment on above: Performed By: #### L AB15 ####Systems Mgr: JESSY OWENS ([id number])[facility] [place] [address] Creatinine [Mass/Vol] 0.65 mg/dL Normal 0.57-1.11 [facility] Comment on above: Performed By: #### L AB15 ####Systems Mgr: JESSY OWENS ([id number])[facility] [place] [address] GLOMERULAR FILTRATION RATE ML/MIN/1.73 SQ M.PREDICTED >90.0 Normal >60.0 [facility] Comment on above: Result Comment: Calc ulation based on the Chronic Kidney Disease Epidemiology Collaboration (CKD-EPI) equation refit without adjustment for race Performed By: #### L AB15 ####Systems Mgr: JESSY OWENS ([id number])[facility] [place] [address] Glucose [Mass/Vol] 180 mg/dL High 82-115 [facility] Comment on above: Performed By: #### L AB15 ####Systems Mgr: JESSY OWENS ([phone])[facility])[address] [place] [address] Potassium [Moles/Vol] 3.2 mmol/L Low 3.5-5.1 [facility] Comment on above: Result Comment: [facility] potassium values may be up to 0.5 mmol/L lower than serum values. Performed By: #### L AB15 ####Systems Mgr: JESSY OWENS ([phone])[facility] ([facility])[address] [place] [address] Sodium [Moles/Vol] 136 mmol/L Normal 136-145 [facility] Comment on above: Performed By: #### L AB15 ####Systems Mgr: JESSY OWENS ([phone])[facility] ([facility])[address] [place] [address] Urea nitrogen [Mass/Vol] 27 mg/dL High 9-23 [facility] Comment on above: Performed By: #### L AB15 ####Systems Mgr: JESSY OWENS ([phone])[facility])[address] [place] [address] Anion gap [Moles/Vol] 11 mmol/L Normal 3-13 [facility] Comment on above: Performed By: #### L AB15 ####Systems Mgr: JESSY OWENS ([phone])[facility] ([facility])[address] [place] [address] [place] Calcium [Mass/Vol] 8.2 mg/dL Low 8.8-10.0 [facility] Comment on above: Performed By: #### L AB15 ####Systems Mgr: JESSY OWENS ([id number])[facility] [facility])[address] [place] [address] [place] Chloride [Moles/Vol] 111 mmol/L High 98-107 [facility] Comment on above: Performed By: #### L AB15 ####Systems Mgr: JESSY OWENS ([phone])[facility] ([facility])[address] [place] [address] CO2 [Moles/Vol] 15 mmol/L Low 23-31 [facility] Comment on above: Performed By: #### L AB15 ####Systems Mgr: JESSY OWENS ([id number])[facility])[address] [place] [address] Creatinine [Mass/Vol] 0.63 mg/dL Normal 0.57-1.11 [facility] Comment on above: Performed By: #### L AB15 ####Systems Mgr: JESSY OWENS ([phone])[facility])[address] [place] [address] GLOMERULAR FILTRATION RATE ML/MIN/1.73 SQ M.PREDICTED >90.0 Normal >60.0 [facility] Comment on above: Result Comment: Calc ulation based on the Chronic Kidney Disease Epidemiology Collaboration (CKD-EPI) equation refit without adjustment for race Performed By: #### L AB15 ####Systems Mgr: JESSY OWENS ([phone])[facility])[address] [place] [address] Glucose [Mass/Vol] 180 mg/dL High 82-115 [facility] Comment on above: Performed By: #### L AB15 ####Systems Mgr: JESSY OWENS ([id number])[facility])[address] [place] [address] Potassium [Moles/Vol] 2.9 mmol/L Low 3.5-5.1 [facility] Comment on above: Result Comment: [facility] potassium values may be up to 0.5 mmol/L lower than serum values. Performed By: #### L AB15 ####Systems Mgr: JESSY OWENS ([phone])[facility])[address] [place] [address] Sodium [Moles/Vol] 137 mmol/L Normal 136-145 [facility] Comment on above: Performed By: #### L AB15 ####Systems Mgr: JESSY OWENS ([id number])[facility] [place] [address] [place] Urea nitrogen [Mass/Vol] 28 mg/dL High 9-23 [facility] Comment on above: Performed By: #### L AB15 ####Systems Mgr: JESSY OWENS ([id number])[facility])[address] Anion gap [Moles/Vol] 11 mmol/L Normal 3-13 [facility] Comment on above: Performed By: #### L AB15 ####Systems Mgr: JESSY OWENS ([phone])[facility] [place] [address] Calcium [Mass/Vol] 8.2 mg/dL Low 8.8-10.0 [facility] Comment on above: Performed By: #### L AB15 ####Systems Mgr: JESSY OWENS ([id number])[facility] [place] [address] [place] Chloride [Moles/Vol] 112 mmol/L High 98-107 [facility] Comment on above: Performed By: #### L AB15 ####Systems Mgr: JESSY OWENS ([id number])[facility] [place] [address] [place] CO2 [Moles/Vol] 15 mmol/L Low 23-31 [facility] Comment on above: Performed By: #### L AB15 ####Systems Mgr: JESSY OWENS ([id number])[facility] [place] [address] Creatinine [Mass/Vol] 0.72 mg/dL Normal 0.57-1.11 [facility] Comment on above: Performed By: #### L AB15 ####Systems Mgr: JESSY OWENS ([id number])[facility] [place] [address] [place] GLOMERULAR FILTRATION RATE ML/MIN/1.73 SQ M.PREDICTED >90.0 Normal >60.0 [facility] Comment on above: Result Comment: Calc ulation based on the Chronic Kidney Disease Epidemiology Collaboration (CKD-EPI) equation refit without adjustment for race Performed By: #### L AB15 ####Systems Mgr: JESSY OWENS ([id number])[facility])[address] [place] [address] Glucose [Mass/Vol] 171 mg/dL High 82-115 [facility] Comment on above: Performed By: #### L AB15 ####Systems Mgr: JESSY OWENS ([id number])[facility])[address] [place] [address] Potassium [Moles/Vol] 3.0 mmol/L Low 3.5-5.1 [facility] Comment on above: Result Comment: [facility] potassium values may be up to 0.5 mmol/L lower than serum values. Performed By: #### L AB15 ####Systems Mgr: JESSY OWENS ([id number])[facility])[address] [place] [address] Sodium [Moles/Vol] 138 mmol/L Normal 136-145 [facility] Comment on above: Performed By: #### L AB15 ####Systems Mgr: JESSY OWENS ([phone])[facility])[address] [place] [address] Urea nitrogen [Mass/Vol] 40 mg/dL High 9-23 [facility] Comment on above: Performed By: #### L AB15 ####Systems Mgr: JESSY OWENS ([id number])[facility])[address] [place] [address] Bacteria identified Cx Nom ( Bld)Ordered By: Simran Vasquez on 11-26-2024 Interpretation and review of laboratory results Abnormal [facility] Basic metabolic 1998 panelon 11-26-2024 Anion gap [Moles/Vol] 9 mmol/L 3 - 13 mmol/L [facility] Calcium [Mass/Vol] 8.3 mg/dL Low 8.8 - 10. 0 mg/dL [facility] Chloride [Moles/Vol] 109 mmol/L High 98 - 10 7 mmol/L [facility] CO2 [Moles/Vol] 18 mmol/L Low 23 - 31 mmol/L [facility] Creatinine [Mass/Vol] 0.65 mg/dL 0.57 - 1.11 mg/dL [facility] GFR/1.73 sq M.predicted (S/P/Bld) [Vol rate/Area] - PINF [facility] Glucose [Mass/Vol] 180 mg/dL High 82 - 115 mg/dL [facility] Interpretation and review of laboratory results Abnormal [facility] Potassium [Moles/Vol] 3.2 mmol/L Low 3.5 - 5.1 mmol/L [facility] Sodium [Moles/Vol] 136 mmol/L 136 - 145 mmol/L [facility] Urea nitrogen [Mass/Vol] 27 mg/dL High 9 - 23 mg/d L [facility] Anion gap [Moles/Vol] 11 mmol/L 3 - 13 mmol/L [facility] Calcium [Mass/Vol] 8.2 mg/dL Low 8.8 - 10. 0 mg/dL [facility] Chloride [Moles/Vol] 111 mmol/L High 98 - 10 7 mmol/L [facility] CO2 [Moles/Vol] 15 mmol/L Low 23 - 31 mmol/L [facility] Creatinine [Mass/Vol] 0.63 mg/dL 0.57 - 1.11 mg/dL [facility] GFR/1.73 sq M.predicted (S/P/Bld) [Vol rate/Area] - PINF [facility] Glucose [Mass/Vol] 180 mg/dL High 82 - 115 mg/dL [facility] Interpretation and review of laboratory results Abnormal [facility] Potassium [Moles/Vol] 2.9 mmol/L Low 3.5 - 5.1 mmol/L [facility] Sodium [Moles/Vol] 137 mmol/L 136 - 145 mmol/L [facility] Urea nitrogen [Mass/Vol] 28 mg/dL High 9 - 23 mg/d L [facility] Anion gap [Moles/Vol] 11 mmol/L 3 - 13 mmol/L [facility] Calcium [Mass/Vol] 8.2 mg/dL Low 8.8 - 10. 0 mg/dL [facility] Chloride [Moles/Vol] 112 mmol/L High 98 - 10 7 mmol/L [facility] CO2 [Moles/Vol] 15 mmol/L Low 23 - 31 mmol/L [facility] Creatinine [Mass/Vol] 0.72 mg/dL 0.57 - 1.11 mg/dL [facility] GFR/1.73 sq M.predicted (S/P/Bld) [Vol rate/Area] - PINF [facility] Glucose [Mass/Vol] 171 mg/dL High 82 - 115 mg/dL [facility] Interpretation and review of laboratory results Abnormal [facility] Potassium [Moles/Vol] 3 mmol/L Low 3.5 - 5.1 mmol/L [facility] Sodium [Moles/Vol] 138 mmol/L 136 - 145 mmol/L [facility] Urea nitrogen [Mass/Vol] 40 mg/dL High 9 - 23 mg/d L [facility] CALCIUM, IONIZEDon CALCIUM IONIZED 4.40 mg/dL Normal 4.30-5.20 [facility] Comment on above: Performed By: #### L AB54 ####Systems Mgr: JESSY OWENS ([phone])[address] PH, IONIZED CALCIUM 7.47 High 7.31-7.46 [facility] Comment on above: Performed By: #### L AB54 ####Systems Mgr: JESSY OWENS ([id number])[facility])[address] [place] [address] CBC W Auto Differential pane l (Bld)on 11-26-2024 Basophils (Bld) [#/Vol] 0 10*3/uL 0.0 - 0.2 10*3/uL [facility] Basophils/100 WBC (Bld) 0.1 % 0.0 - 2.0 % [facility] Eosinophils (Bld) [#/Vol] 0 10*3/uL 0.0 - 0.5 10*3/uL [facility] Eosinophils/100 WBC (Bld) 0 % 0.0 - 6.0 % [facility] Erythrocyte distribution width (RBC) [Ratio] 13.3 % 11.5 - 15.0 % [facility] Hematocrit (Bld) [Volume fraction] 23.9 % Low 35.0 - 47.0 % [facility] Hemoglobin (Bld) [Mass/Vol] 8.1 g/dL Low 11.7 - 16.0 g/dL [facility] Immature granulocytes (Bld) [#/Vol] 0.2 10*3/uL High NINF - 0.1 10*3/uL [facility] Immature granulocytes/100 WBC (Bld) 2.7 % High 0.0 - 2.0 % [facility] Interpretation and review of laboratory results Abnormal [facility] Lymphocytes (Bld) [#/Vol] 0.9 10*3/uL Low 1.0 - 4.3 10*3/uL [facility] Lymphocytes/100 WBC (Bld) 9.4 % Low 15.0 - 45.0 % [facility] MCH (RBC) [Entitic mass] 34.3 pg High 26. 0 - 34.0 pg [facility] MCHC (RBC) [Mass/Vol] 33.9 % 30.5 - 36.0 % [facility] MCV (RBC) [Entitic vol] 101.3 fL High 77.0 - 99.0 fL [facility] Monocytes (Bld) [#/Vol] 0.2 10*3/uL 0.0 - 0.9 10*3/uL [facility] Monocytes/100 WBC (Bld) 2.2 % Low 5.0 - 13.0 % [facility] Neutrophils (Bld) [#/Vol] 7.8 10*3/uL High 1.8 - 7.5 10*3/uL [facility] Neutrophils/100 WBC (Bld) 85.6 % High 38.0 - 82.0 % [facility] Nucleated RBC/100 WBC (Bld) [Ratio] 0.8 % [facility] Platelet mean volume (Bld) [Entitic vol] 10.5 fL 9.0 - 12.7 fL [facility] Platelets (Bld) [#/Vol] 129 10*3/uL Low 140 - 440 10*3/uL [facility] RBC (Bld) [#/Vol] 2.36 10*6/uL Low 3.80 - 5.2 0 10*6/uL [facility] WBC (Bld) [#/Vol] 9.1 10*3/uL 3.6 - 10.7 10*3/uL [facility] CBC WITH AUTO DIFFERENTIALon 11-26-2024 Basophils (Bld) [#/Vol] 0.0 10*3/uL Normal 0.0-0.2 [facility] Comment on above: Performed By: #### L AB296, [id number] ####Systems Mgr: JESSY OWENS ([phone])[facility])[address] [place] [address] Basophils/100 WBC (Bld) 0.1 % Normal 0.0-2.0 [facility] Comment on above: Performed By: #### L AB296, [id number] ####Systems Mgr: JESSY OWENS ([id number])[facility])[address] [place] [address] Eosinophils (Bld) [#/Vol] 0.0 10*3/uL Normal 0.0-0.5 [facility] Comment on above: Performed By: #### Davidson AB296, [id number] ####Systems Mgr: JESSY OWENS ([id number])[facility])[address] [place] [address] Eosinophils/100 WBC (Bld) 0.0 % Normal 0.0-6.0 [facility] Comment on above: Performed By: #### L AB296, [id number] ####Systems Mgr: JESSY OWENS ([id number])[facility])[address] [place] [address] Erythrocyte distribution width (RBC) [Ratio] 13.3 % Normal 11.5-15.0 [facility] Comment on above: Performed By: #### L AB296, [id number] ####Systems Mgr: JESSY OWENS ([id number])[facility])[address] [place] [address] Hematocrit (Bld) [Volume fraction] 23.9 % Low 35.0-47.0 [facility] Comment on above: Performed By: #### L AB296, [id number] ####Systems Mgr: JESSY OWENS ([id number])[facility])[address] [place] [address] Hemoglobin (Bld) [Mass/Vol] 8.1 g/dL Low 11.7-16.0 [facility] Comment on above: Performed By: #### Davidson AB296, [id number] ####Systems Mgr: JESSY OWENS ([id number])[facility])[address] [place] [address] IMMATURE GRANS % 2.7 % High 0.0-2.0 [facility] Comment on above: Performed By: #### Davidson BELTRAN [id number] ####Systems Mgr: EJSSY OWENS ([phone])[facility])[address] [place] [address] IMMATURE GRANS ABSOLUTE 0.2 10*3/uL High <0.1 [facility] Comment on above: Performed By: #### Davidson [id number] [id number] ####Systems Mgr: JESSY OWENS ([id number])[facility])[address] [place] [address] Lymphocytes (Bld) [#/Vol] 0.9 10*3/uL Low 1.0-4.3 [facility] Comment on above: Performed By: #### Davidson YO296 [id number] ####Systems Mgr: JESSY OWENS ([id number])[facility])[address] [place] [address] Lymphocytes/100 WBC (Bld) 9.4 % Low 15.0-45.0 [facility] Comment on above: Performed By: #### [place] YO296 [id number] ####Systems Mgr: JESSY OEWNS ([id number])[facility])[address] [place] [address] MCH (RBC) [Entitic mass] 34.3 pg High 26.0-34.0 [facility] Comment on above: Performed By: #### Davidson YO296 [id number] ####Systems Mgr: JESSY OWENS ([id number])[facility] ([facility])[address] [place] [address] MCHC 33.9 % Normal 30.5-36.0 [facility] Comment on above: Performed By: #### L AB296, [id number] ####Systems Mgr: JESSY OWENS ([id number])[facility])[address] [place] [address] MCV (RBC) [Entitic vol] 101.3 fL High 77.0-99.0 [facility] Comment on above: Performed By: #### L AB296, [id number] ####Systems Mgr: JESSY OWENS ([id number])[facility])[address] [place] [address] Monocytes (Bld) [#/Vol] 0.2 10*3/uL Normal 0.0-0.9 [facility] Comment on above: Performed By: #### Davidson AB296, [id number] ####Systems Mgr: JESSY OWENS ([id number])[facility] ([facility])[address] [place] [address] Monocytes/100 WBC (Bld) 2.2 % Low 5.0-13.0 [facility] Comment on above: Performed By: #### Davidson AB296, [id number] ####Systems Mgr: JESSY OWENS ([id number])[facility] ([facility])[address] [place] [address] NEUTROPHILS ABSOLUTE 7.8 10*3/uL High 1.8-7.5 [facility] Comment on above: Performed By: #### L AB296, [id number] ####Systems Mgr: JESSY OWENS ([phone])[facility])[address] [place] [address] Neutrophils/100 WBC (Bld) 85.6 % High 38.0-82.0 [facility] Comment on above: Performed By: #### L AB296, [id number] ####Systems Mgr: JESSY OWENS ([id number])[facility] ([facility])[address] [place] [address] NRBC 0.8 /100 WBCs Normal 0.0-2.0 [facility] Comment on above: Performed By: #### L AB296, [id number] ####Systems Mgr: JESSY OWENS ([id number])[facility] ([facility])[address] [place] [address] Platelet mean volume (Bld) [Entitic vol] 10.5 fL Normal 9.0-12.7 [facility] Comment on above: Performed By: #### L AB296, [id number] ####Systems Mgr: JESSY OWENS ([id number])[facility] ([facility])[address] [place] [address] Platelets (Bld) [#/Vol] 129 10*3/uL Low 140-440 [facility] Comment on above: Performed By: #### L AB296, [id number] ####Systems Mgr: JESSY OWENS ([id number])[facility] ([facility])[address] [place] [address] RBC (Bld) [#/Vol] 2.36 10*6/uL Low 3.80-5.20 [facility] Comment on above: Performed By: #### L AB296, [id number] ####Systems Mgr: JESSY OWENS ([id number])[facility] ([facility])[address] [place] [address] WBC (Bld) [#/Vol] 9.1 10*3/uL Normal 3.6-10.7 [facility] Comment on above: Performed By: #### L AB296, [id number] ####Systems Mgr: JESSY OWENS ([id number])[facility])[address] [place] [address] COMPREHENSIVE METABOLIC PANE Neo 11-26-2024 Albumin [Mass/Vol] 2.5 g/dL Low 3.4-4.8 [facility] Comment on above: Performed By: #### L AB67, LAB69, [id number], LAB17, TLC565, LAB68 ####Systems Mgr: JESSY OWENS ([id number])[facility] ([facility])[address] [place] [address] ALP [Catalytic activity/Vol] 91 U/L Normal 40-150 [facility] Comment on above: Performed By: #### L AB67, LAB69, [id number], LAB17, GAF522, LAB68 ####Systems Mgr: JESSY OWENS ([id number])[facility] ([facility])[address] [place] [address] ALT [Catalytic activity/Vol] 9 U/L Normal <30 [facility] Comment on above: Performed By: #### L AB67, LAB69, [id number], LAB17, [id number], LAB68 ####Systems Mgr: JESSY OWENS ([id number])[facility] ([facility])[address] [place] [address] Anion gap [Moles/Vol] 13 mmol/L Normal 3-13 [facility] Comment on above: Performed By: #### L AB67, LAB69, [id number], LAB17, GBA968, LAB68 ####Systems Mgr: JESSY OWENS ([id number])[facility] ([facility])[address] [place] [address] AST [Catalytic activity/Vol] 21 U/L Normal <34 [facility] Comment on above: Performed By: #### L AB67, LAB69, [id number], LAB17, CBN700, LAB68 ####Systems Mgr: JESSY OWENS ([id number])[facility] ([facility])[address] [place] [address] Bilirubin [Mass/Vol] 1.3 mg/dL High <1.2 [facility] Comment on above: Performed By: #### L AB67, LAB69, CUX946, LAB17, [id number], LAB68 ####Systems Mgr: JESSY OWENS ([id number])[facility] ([facility])[address] [place] [address] Calcium [Mass/Vol] 8.3 mg/dL Low 8.8-10.0 [facility] Comment on above: Performed By: #### L AB67, LAB69, TZE028, LAB17, FDU798, LAB68 ####Systems Mgr: JESSY OWENS ([phone])[facility] ([facility])[address] [place] [address] Chloride [Moles/Vol] 109 mmol/L High 98-107 [facility] Comment on above: Performed By: #### L AB67, LAB69, COY056, LAB17, SMW055, LAB68 ####Systems Mgr: JESSY OWENS ([id number])[facility])[address] [place] [address] CO2 [Moles/Vol] 16 mmol/L Low 23-31 [facility] Comment on above: Performed By: #### L AB67, LAB69, HHF758, LAB17, MFP765, LAB68 ####Systems Mgr: JESSY OWENS ([id number])[facility])[address] [place] [address] Creatinine [Mass/Vol] 0.67 mg/dL Normal 0.57-1.11 [facility] Comment on above: Performed By: #### L AB67, LAB69, UPJ626, LAB17, PUH445, LAB68 ####Systems Mgr: JESSY OWENS ([id number])[facility])[address] [place] [address] GLOMERULAR FILTRATION RATE ML/MIN/1.73 SQ M.PREDICTED >90.0 Normal >60.0 [facility] Comment on above: Result Comment: Calc ulation based on the Chronic Kidney Disease Epidemiology Collaboration (CKD-EPI) equation refit without adjustment for race Performed By: #### L AB67, LAB69, AQX551, LAB17, HDB160, LAB68 ####Systems Mgr: JESSY OWENS ([id number])[facility])[address] [place] [address] Glucose [Mass/Vol] 165 mg/dL High 82-115 [facility] Comment on above: Performed By: #### L AB67, LAB69, JDM404, LAB17, BSS821, LAB68 ####Systems Mgr: JESSY OWENS ([id number])[facility])[address] [place] [address] Potassium [Moles/Vol] 2.4 mmol/L Critically low 3.5-5.1 [facility] Comment on above: Result Comment: [facility] potassium values may be up to 0.5 mmol/L lower than serum values. Performed By: #### L AB67, LAB69, [id number], LAB17, TMI392, LAB68 ####Systems Mgr: JESSY OWENS ([phone])[facility])[address] [place] [address] Protein [Mass/Vol] 5.7 g/dL Low 6.4-8.3 [facility] Comment on above: Performed By: #### L AB67, LAB69, [id number], LAB17, EGR653, LAB68 ####Systems Mgr: JESSY OWENS ([id number])[facility])[address] [place] [address] Sodium [Moles/Vol] 138 mmol/L Normal 136-145 [facility] Comment on above: Performed By: #### L AB67, LAB69, TRV293, LAB17, NNZ390, LAB68 ####Systems Mgr: JESSY OWENS ([id number])[address] Urea nitrogen [Mass/Vol] 32 mg/dL High 9-23 [facility] Comment on above: Performed By: #### L AB67, LAB69, YLH380, LAB17, JZU500, LAB68 ####Systems Mgr: JESSY OWENS ([id number])[address] Calcium.ionized [Moles/Vol]O rdered By: Tana Ruelas on 11-26-2024 Calcium.ionized (Bld) [Moles/Vol] 4.4 mg/dL 4.30 - 5.20 mg/dL [facility] Interpretation and review of laboratory results Abnormal [facility] PH, IONIZED CALCIUM 7.47 High 7.31 - 7.46 [facility] Cobalamin (Vitamin B12) [Mas s/Vol]on 11-26-2024 Interpretation and review of laboratory results Normal [facility] Comprehensive metabolic 1998 panelon 11-26-2024 Albumin [Mass/Vol] 2.5 g/dL Low 3.4 - 4.8 g/dL [facility] ALP [Catalytic activity/Vol] 91 U/L 40 - 150 U/L [facility] ALT [Catalytic activity/Vol] 9 U/L NINF - 30 U/L [facility] Anion gap [Moles/Vol] 13 mmol/L 3 - 13 mmol/L [facility] AST [Catalytic activity/Vol] 21 U/L NINF - 34 U/L [facility] Bilirubin [Mass/Vol] 1.3 mg/dL High NINF - 1.2 mg/dL [facility] Calcium [Mass/Vol] 8.3 mg/dL Low 8.8 - 10. 0 mg/dL [facility] Chloride [Moles/Vol] 109 mmol/L High 98 - 10 7 mmol/L [facility] CO2 [Moles/Vol] 16 mmol/L Low 23 - 31 mmol/L [facility] Creatinine [Mass/Vol] 0.67 mg/dL 0.57 - 1.11 mg/dL [facility] GFR/1.73 sq M.predicted (S/P/Bld) [Vol rate/Area] - PINF [facility] Glucose [Mass/Vol] 165 mg/dL High 82 - 115 mg/dL [facility] Interpretation and review of laboratory results Abnormal [facility] Potassium [Moles/Vol] 2.4 mmol/L Critically low 3.5 - 5.1 mmol/L [facility] Protein [Mass/Vol] 5.7 g/dL Low 6.4 - 8.3 g/dL [facility] Sodium [Moles/Vol] 138 mmol/L 136 - 145 mmol/L [facility] Urea nitrogen [Mass/Vol] 32 mg/dL High 9 - 23 mg/d L [facility] Consulton 11-26-2024 Consult Normal [facility] FERRITINon 11-26-2024 Ferritin [Mass/Vol] 647 ng/mL High 5-204 [facility] Comment on above: Result Comment: TANA Wick COMMENTS:Ferritin levels below 10 ng/mL have been reported as indicative of iron deficiency anemia. Performed By: #### L AB67, LAB69, TDF201, LAB17, [id number], LAB68 ####Systems Mgr: JESSY OWENS ([phone])[facility] ([facility])[address] [place] [address] FOLATEon 11-26-2024 FOLATE RESULT 17.1 ng/mL Normal 7.0-31.4 [facility] Comment on above: Performed By: #### L AB67, LAB69, [id number], LAB17, [id number], LAB68 ####Systems Mgr: JESSY OWENS ([phone])[facility] ([facility])[address] [place] [address] Ferritin [Mass/Vol]on 2024 Interpretation and review of laboratory results Abnormal [facility] Folate [Mass/Vol]on 11-27-19 Interpretation and review of laboratory results Normal [facility] IRON AND TIBCon 11-26-2024 IRON BINDING CAPACITY 188 ug/dL Low 250-450 [facility] Comment on above: Performed By: #### L AB129, [id number] ####Systems Mgr: JESSY OWENS ([phone])[facility] ([facility])[address] [place] [address] IRON SATURATION 35.6 % Normal 20.0-50.0 [facility] Comment on above: Performed By: #### L AB129, [id number] ####Systems Mgr: JESSY OWENS ([id number])[facility] ([facility])[address] [place] [address] IRON, TOTAL 67 ug/dL Normal 50-170 [facility] Comment on above: Performed By: #### L AB129, [id number] ####Systems Mgr: JESSY OWENS ([id number])[facility] ([facility])[address] [place] [address] [place] Iron and Iron binding capaci ty panelon 11-26-2024 Interpretation and review of laboratory results Abnormal [facility] Iron [Mass/Vol] 67 ug/dL 50 - 170 ug/dL [facility] Iron binding capacity [Mass/Vol] 188 ug/dL Low 250 - 450 ug/dL [facility] Iron saturation [Mass fraction] 35.6 % 20.0 - 50.0 % [facility] Laboratory - Chemistry and C hemistry - challengeon 11-26-2024 Folate [Mass/Vol] 17.1 ng/mL 7.0 - 31.4 ng/mL [facility] Cobalamin (Vitamin B12) [Mass/Vol] 317 pg/mL 213 - 816 pg/mL [facility] TSH Qn 0.57 m[IU]/L [facility] Ferritin [Mass/Vol] 647 ng/mL High 5 - 204 ng/mL [facility] Magnesium [Mass/Vol] 1.8 mg/dL 1.6 - 2 .6 mg/dL [facility] Laboratory - Drug toxicology on 11-26-2024 Vancomycin trough [Mass/Vol] 17.6 ug/mL [facility] Laboratory - Microbiology an d Antimicrobial susceptibilityOrdered By: Simran Vasquez on 11-26-2024 Bacteria identified Cx Nom (Bld) Staphylococcus epidermidis Critically abnormal [facility] MAGNESIUMon 11-26-2024 Magnesium [Mass/Vol] 1.8 mg/dL Normal 1.6-2.6 [facility] Comment on above: Result Comment: TANA Wick COMMENTS:Higher values can be expected in females during menses. Performed By: #### L AB67, LAB69, [id number], LAB17, [id number], LAB68 ####Systems Mgr: JESSY OWENS ([phone])[address] Magnesium [Mass/Vol]on 11-26 [facility] No Panel Informationon 11-26 Interpretation and review of laboratory results Normal [facility] PHOSPHORUSon 11-26-2024 Phosphate [Mass/Vol] 2.3 mg/dL Normal 2.3-4.7 [facility] Comment on above: Performed By: #### L AB67, LAB69, [id number], LAB17, [id number], LAB68 ####Systems Mgr: JESSY OWENS ([id number])[facility])[address] [place] [address] Phosphate [Moles/Vol]on 11-17 Phosphate [Mass/Vol] 2.3 mg/dL 2.3 - 4 .7 mg/dL [facility] Progress Noteon 11-26-2024 Progress Note Normal [facility] Progress Note Normal [facility] Progress Note Normal [facility] RETICULOCYTESon 11-26-2024 Reticulocytes/100 RBC (Bld) 2.37 % Normal [facility] Comment on above: Result Comment: Newb orn < 5%Adults 0.4 - 2.0% Performed By: #### L AB296, [id number] ####Systems Mgr: JESSY WOENS ([phone])[facility])[address] [place] [address] Reticulocytes panel (Bld)Ord ered By: Angela Whitten on 11-26-2024 Reticulocytes/100 RBC (Bld) 2.37 % [facility] THYROID STIMULATING HORMONEo n 11-26-2024 THYROID STIMULATING HORMONE 0.57 uIU/mL Normal 0.35-4.94 [facility] Comment on above: Performed By: #### L AB129, [id number] ####Systems Mgr: JESSY OWENS ([id number])[facility])[address] [place] [address] TSH Qnon 11-26-2024 Interpretation and review of laboratory results Normal [facility] VANCOMYCIN, AUC TIMED DOSING on 11-26-2024 VANCOMYCIN, AUC 17.6 ug/mL Normal [facility] Comment on above: Result Comment: ORDE R COMMENTS:Please draw random level at least >2 hours after the end of the last vancomycin infusion, or 30-minutes before next infusion.Toxicity is seen at concentrations >80-100 ug/mLTherapeutic (Peak) range: 20-40Therapeutic (Trough) range: 5-10 Performed By: #### L AB39 ####Systems Mgr: JESSY OWENS ([id number])[facility] ([facility])[address] [place], [place] [id number] [place] VITAMIN B12on 11-26-2024 Cobalamin (Vitamin B12) [Mass/Vol] 317 pg/mL Normal 213-816 [facility] Comment on above: Performed By: #### L AB67, LAB69, NBU737, LAB17, [id number], LAB68 ####Systems Mgr: JESSY OWENS ([id number])[facility] [place] [address] [place] Vancomycin trough [Mass/Vol] on 11-26-2024 [facility] 30on 11-25-2024 30 Normal [facility] [id number] 11-25-2024 [id number] Normal [facility] BASIC METABOLIC PANELon Anion gap [Moles/Vol] 12 mmol/L Normal 3-13 [facility] Comment on above: Performed By: #### L AB15 ####Systems Mgr: JESSY OWENS ([id number])[facility] ([facility])[address] [place] [address] Calcium [Mass/Vol] 8.0 mg/dL Low 8.8-10.0 [facility] Comment on above: Performed By: #### L AB15 ####Systems Mgr: JESSY OWENS ([id number])[facility] ([facility])[address] [place] [address] [place] Chloride [Moles/Vol] 112 mmol/L High 98-107 [facility] Comment on above: Performed By: #### L AB15 ####Systems Mgr: JESSY OWENS ([id number])[facility] ([facility])[address] [place] [address] [place] CO2 [Moles/Vol] 14 mmol/L Low 23-31 [facility] Comment on above: Performed By: #### L AB15 ####Systems Mgr: JESSY OWENS ([id number])[facility] [place] [address] [place] Creatinine [Mass/Vol] 0.76 mg/dL Normal 0.57-1.11 [facility] Comment on above: Performed By: #### L AB15 ####Systems Mgr: JESSY OWENS ([id number])[facility])[address] [place] [address] GLOMERULAR FILTRATION RATE ML/MIN/1.73 SQ M.PREDICTED 88.7 mL/min/1.73m*2 Normal >60.0 [facility] Comment on above: Result Comment: Calc ulation based on the Chronic Kidney Disease Epidemiology Collaboration (CKD-EPI) equation refit without adjustment for race Performed By: #### L AB15 ####Systems Mgr: JESSY OWENS ([id number])[facility] ([facility])[address] [place] [address] Glucose [Mass/Vol] 178 mg/dL High 82-115 [facility] Comment on above: Performed By: #### L AB15 ####Systems Mgr: JESSY OWENS ([id number])[facility])[address] [place] [address] Potassium [Moles/Vol] 3.2 mmol/L Low 3.5-5.1 [facility] Comment on above: Result Comment: [facility] potassium values may be up to 0.5 mmol/L lower than serum values. Performed By: #### L AB15 ####Systems Mgr: JESSY OWENS ([id number])[facility] ([facility])[address] [place] [address] [place] Sodium [Moles/Vol] 138 mmol/L Normal 136-145 [facility] Comment on above: Performed By: #### L AB15 ####Systems Mgr: JESSY OWENS ([id number])[facility])[address] [place] [address] [place] Urea nitrogen [Mass/Vol] 45 mg/dL High 9-23 [facility] Comment on above: Performed By: #### L AB15 ####Systems Mgr: JESSY OWENS ([id number])[facility])[address] [place] [address] Anion gap [Moles/Vol] 12 mmol/L Normal 3-13 [facility] Comment on above: Performed By: #### L AB15 ####Systems Mgr: JESSY OWENS ([id number])[facility] ([facility])[address] [place] [address] Calcium [Mass/Vol] 7.9 mg/dL Low 8.8-10.0 [facility] Comment on above: Performed By: #### L AB15 ####Systems Mgr: JESSY OWENS ([id number])[facility] ([facility])[address] [place] [address] Chloride [Moles/Vol] 111 mmol/L High 98-107 [facility] Comment on above: Performed By: #### L AB15 ####Systems Mgr: JESSY OWENS ([id number])[facility] ([facility])[address] [place] [address] CO2 [Moles/Vol] 13 mmol/L Low 23-31 [facility] Comment on above: Performed By: #### L AB15 ####Systems Mgr: JESSY OWENS ([id number])[facility] ([facility])[address] [place] [address] Creatinine [Mass/Vol] 0.75 mg/dL Normal 0.57-1.11 [facility] Comment on above: Performed By: #### L AB15 ####Systems Mgr: JESSY OWENS ([id number])[facility])[address] [place] [address] GLOMERULAR FILTRATION RATE ML/MIN/1.73 SQ M.PREDICTED >90.0 Normal >60.0 [facility] Comment on above: Result Comment: Calc ulation based on the Chronic Kidney Disease Epidemiology Collaboration (CKD-EPI) equation refit without adjustment for race Performed By: #### L AB15 ####Systems Mgr: JESSY OWENS ([id number])[facility] ([facility])[address] [place] [address] Glucose [Mass/Vol] 158 mg/dL High 82-115 [facility] Comment on above: Performed By: #### L AB15 ####Systems Mgr: JESSY OWENS ([id number])[facility] [place] [address] [place] Potassium [Moles/Vol] 2.9 mmol/L Low 3.5-5.1 [facility] Comment on above: Result Comment: [facility] potassium values may be up to 0.5 mmol/L lower than serum values. Performed By: #### L AB15 ####Systems Mgr: JESSY OWENS ([id number])[facility] [place] [address] Sodium [Moles/Vol] 136 mmol/L Normal 136-145 [facility] Comment on above: Performed By: #### L AB15 ####Systems Mgr: JESSY OWENS ([id number])[facility] ([facility])[address] [place] [address] Urea nitrogen [Mass/Vol] 47 mg/dL High 9-23 [facility] Comment on above: Performed By: #### L AB15 ####Systems Mgr: JESSY OWENS ([id number])[facility] [place] [address] Anion gap [Moles/Vol] 12 mmol/L Normal 3-13 [facility] Comment on above: Performed By: #### L AB15 ####Systems Mgr: JESSY OWENS ([id number])[facility] [place] [address] [place] Calcium [Mass/Vol] 7.8 mg/dL Low 8.8-10.0 [facility] Comment on above: Performed By: #### L AB15 ####Systems Mgr: JESSY OWENS ([id number])[facility] ([facility])[address] [place] [address] [place] Chloride [Moles/Vol] 107 mmol/L Normal 98-107 [facility] Comment on above: Performed By: #### L AB15 ####Systems Mgr: JESSY OWENS ([id number])[facility] [place] [address] [place] CO2 [Moles/Vol] 16 mmol/L Low 23-31 [facility] Comment on above: Performed By: #### L AB15 ####Systems Mgr: JESSY OWENS ([id number])[facility])[address] [place] [address] Creatinine [Mass/Vol] 0.79 mg/dL Normal 0.57-1.11 [facility] Comment on above: Performed By: #### L AB15 ####Systems Mgr: JESSY OWENS ([id number])[facility])[address] [place] [address] [place] GLOMERULAR FILTRATION RATE ML/MIN/1.73 SQ M.PREDICTED 84.7 mL/min/1.73m*2 Normal >60.0 [facility] Comment on above: Result Comment: Calc ulation based on the Chronic Kidney Disease Epidemiology Collaboration (CKD-EPI) equation refit without adjustment for race Performed By: #### L AB15 ####Systems Mgr: JESSY OWENS ([id number])[facility] ([facility])[address] [place] [address] [place] Glucose [Mass/Vol] 120 mg/dL High 82-115 [facility] Comment on above: Performed By: #### L AB15 ####Systems Mgr: JESSY OWENS ([id number])[facility])[address] [place] [address] [place] Potassium [Moles/Vol] 2.6 mmol/L Critically low 3.5-5.1 [facility] Comment on above: Result Comment: [facility] potassium values may be up to 0.5 mmol/L lower than serum values. Performed By: #### L AB15 ####Systems Mgr: JESSY OWENS ([id number])[facility] ([facility])[address] [place] [address] [place] Sodium [Moles/Vol] 135 mmol/L Low 136-145 [facility] Comment on above: Performed By: #### L AB15 ####Systems Mgr: JESSY OWENS ([id number])[facility])[address] Urea nitrogen [Mass/Vol] 53 mg/dL High 9-23 [facility] Comment on above: Performed By: #### L AB15 ####Systems Mgr: JESSY OWENS ([id number])[facility] ([facility])[address] [place] [address] Anion gap [Moles/Vol] 12 mmol/L Normal 3-13 [facility] Comment on above: Performed By: #### L AB15, [id number], [id number] ####Systems Mgr: JESSY OWENS ([id number])[facility] [place] [address] Calcium [Mass/Vol] 7.5 mg/dL Low 8.8-10.0 [facility] Comment on above: Performed By: #### L AB15, [id number], [id number] ####Systems Mgr: JESSY OWENS ([id number])[facility] [place] [address] Chloride [Moles/Vol] 105 mmol/L Normal 98-107 [facility] Comment on above: Performed By: #### L AB15, [id number], [id number] ####Systems Mgr: JESSY OWENS ([id number])[facility] [place] [address] CO2 [Moles/Vol] 15 mmol/L Low 23-31 [facility] Comment on above: Performed By: #### L AB15, [id number], [id number] ####Systems Mgr: JESSY OWENS ([id number])[facility] [place] [address] [place] Creatinine [Mass/Vol] 1.02 mg/dL Normal 0.57-1.11 [facility] Comment on above: Performed By: #### L AB15, [id number], [id number] ####Systems Mgr: JESSY OWENS ([id number])[facility] [place] [address] GLOMERULAR FILTRATION RATE ML/MIN/1.73 SQ M.PREDICTED 62.3 mL/min/1.73m*2 Normal >60.0 [facility] Comment on above: Result Comment: Calc ulation based on the Chronic Kidney Disease Epidemiology Collaboration (CKD-EPI) equation refit without adjustment for race Performed By: #### L AB15, [id number], HXR833 ####Systems Mgr: JESSY OWENS ([id number])[facility] ([facility])[address] [place] [address] Glucose [Mass/Vol] 116 mg/dL High 82-115 [facility] Comment on above: Performed By: #### L AB15, XEC633, DTF704 ####Systems Mgr: JESSY OWENS ([id number])[facility])[address] [place] [address] Potassium [Moles/Vol] 2.4 mmol/L Critically low 3.5-5.1 [facility] Comment on above: Result Comment: [facility] potassium values may be up to 0.5 mmol/L lower than serum values. Performed By: #### L AB15, [id number], [id number] ####Systems Mgr: JESSY OWENS ([id number])[facility] ([facility])[address] [place] [address] Sodium [Moles/Vol] 132 mmol/L Low 136-145 [facility] Comment on above: Performed By: #### L AB15, [id number], [id number] ####Systems Mgr: JESSY OWENS ([id number])[facility])[address] [place] [address] [place] Urea nitrogen [Mass/Vol] 68 mg/dL High 9-23 [facility] Comment on above: Performed By: #### L AB15, [id number], [id number] ####Systems Mgr: JESSY OWENS ([id number])[facility])[address] [place] [address] BLOOD GAS ARTERIALon 025 AMOUNT OF OXYGEN room air Normal [facility] Comment on above: Performed By: #### L AB76 ####Systems Mgr: JESSY OWENS ([id number])[facility] [place] [address] Base excess Calc (Bld) [Moles/Vol] -8.0000 mmol/L Low -3.0-3.0 [facility] Comment on above: Performed By: #### L AB76 ####Systems Mgr: JESSY OWENS ([id number])[facility] ([facility])[address] [place] [address] CO2 [Moles/Vol] 16.4 mmol/L Low 23.0-27.0 [facility] Comment on above: Performed By: #### L AB76 ####Systems Mgr: JESSY OWENS ([id number])[facility] ([facility])[address] [place] [address] HCO3 (Bld) [Moles/Vol] 15.6 mmol/L Low 21.0-25.0 [facility] Comment on above: Performed By: #### L AB76 ####Systems Mgr: JESSY OWENS ([id number])[facility] ([facility])[address] [place] [address] Hemoglobin (Bld) [Mass/Vol] 8.4 g/dL Normal Screen only [facility] Comment on above: Performed By: #### L AB76 ####Systems Mgr: JESSY OWENS ([id number])[facility] ([facility])[address] [place] [address] OXYGEN SATURATION (%) IN ARTERIAL BLOOD 97.2 % Normal 95.0-100.0 [facility] Comment on above: Performed By: #### L AB76 ####Systems Mgr: JESSY OWENS ([id number])[facility] ([facility])[address] [place] [address] PCO2 ARTERIAL 25.4 mm Hg Low >35.0-<45.0 [facility] Comment on above: Performed By: #### L AB76 ####Systems Mgr: JESSY OWENS ([id number])[facility] ([facility])[address] [place] [address] PH ARTERIAL 7.407 Normal 7.350-7.450 [facility] Comment on above: Performed By: #### L AB76 ####Systems Mgr: JESSY OWENS ([id number])[facility] ([facility])[address] [place] [address] PO2 ARTERIAL 111.8 mm Hg High 80.0-100.0 [facility] Comment on above: Performed By: #### L AB76 ####Systems Mgr: JESSY OWENS ([id number])[facility] ([facility])[address] [place] [address] SOURCE OF OXYGEN None (Room Air) Normal [facility] Comment on above: Performed By: #### L AB76 ####Systems Mgr: JESSY OWENS ([id number])[facility] ([facility])[address] [place] [address] Basic metabolic 1998 panelon 11-25-2024 Anion gap [Moles/Vol] 12 mmol/L 3 - 13 mmol/L [facility] Calcium [Mass/Vol] 8 mg/dL Low 8.8 - 10. 0 mg/dL [facility] Chloride [Moles/Vol] 112 mmol/L High 98 - 10 7 mmol/L [facility] CO2 [Moles/Vol] 14 mmol/L Low 23 - 31 mmol/L [facility] Creatinine [Mass/Vol] 0.76 mg/dL 0.57 - 1.11 mg/dL [facility] GFR/1.73 sq M.predicted (S/P/Bld) [Vol rate/Area] 88.7 mL/min - PINF [facility] Glucose [Mass/Vol] 178 mg/dL High 82 - 115 mg/dL [facility] Interpretation and review of laboratory results Abnormal [facility] Potassium [Moles/Vol] 3.2 mmol/L Low 3.5 - 5.1 mmol/L [facility] Sodium [Moles/Vol] 138 mmol/L 136 - 145 mmol/L [facility] Urea nitrogen [Mass/Vol] 45 mg/dL High 9 - 23 mg/d L [facility] Anion gap [Moles/Vol] 12 mmol/L 3 - 13 mmol/L [facility] Calcium [Mass/Vol] 7.9 mg/dL Low 8.8 - 10. 0 mg/dL [facility] Chloride [Moles/Vol] 111 mmol/L High 98 - 10 7 mmol/L [facility] CO2 [Moles/Vol] 13 mmol/L Low 23 - 31 mmol/L [facility] Creatinine [Mass/Vol] 0.75 mg/dL 0.57 - 1.11 mg/dL [facility] GFR/1.73 sq M.predicted (S/P/Bld) [Vol rate/Area] - PINF [facility] Glucose [Mass/Vol] 158 mg/dL High 82 - 115 mg/dL [facility] Interpretation and review of laboratory results Abnormal [facility] Potassium [Moles/Vol] 2.9 mmol/L Low 3.5 - 5.1 mmol/L [facility] Sodium [Moles/Vol] 136 mmol/L 136 - 145 mmol/L [facility] Urea nitrogen [Mass/Vol] 47 mg/dL High 9 - 23 mg/d L [facility] Basic metabolic 1997 panelOr dered By: Shruti Kurtz on 11-25-2024 Anion gap [Moles/Vol] 12 mmol/L 3 - 13 mmol/L [facility] Calcium [Mass/Vol] 7.8 mg/dL Low 8.8 - 10. 0 mg/dL [facility] Chloride [Moles/Vol] 107 mmol/L 98 - 10 7 mmol/L [facility] CO2 [Moles/Vol] 16 mmol/L Low 23 - 31 mmol/L [facility] Creatinine [Mass/Vol] 0.79 mg/dL 0.57 - 1.11 mg/dL [facility] GFR/1.73 sq M.predicted (S/P/Bld) [Vol rate/Area] 84.7 mL/min - PINF [facility] Glucose [Mass/Vol] 120 mg/dL High 82 - 115 mg/dL [facility] Interpretation and review of laboratory results Abnormal [facility] Potassium [Moles/Vol] 2.6 mmol/L Critically low 3.5 - 5.1 mmol/L [facility] Sodium [Moles/Vol] 135 mmol/L Low 136 - 145 mmol/L [facility] Urea nitrogen [Mass/Vol] 53 mg/dL High 9 - 23 mg/d L [facility] Basic metabolic 1997 panelOr dered By: Yogi Merritt on 11-25-2024 Anion gap [Moles/Vol] 12 mmol/L 3 - 13 mmol/L [facility] Calcium [Mass/Vol] 7.5 mg/dL Low 8.8 - 10. 0 mg/dL [facility] Chloride [Moles/Vol] 105 mmol/L 98 - 10 7 mmol/L [facility] CO2 [Moles/Vol] 15 mmol/L Low 23 - 31 mmol/L [facility] Creatinine [Mass/Vol] 1.02 mg/dL 0.57 - 1.11 mg/dL [facility] GFR/1.73 sq M.predicted (S/P/Bld) [Vol rate/Area] 62.3 mL/min - PINF [facility] Glucose [Mass/Vol] 116 mg/dL High 82 - 115 mg/dL [facility] Interpretation and review of laboratory results Abnormal [facility] Potassium [Moles/Vol] 2.4 mmol/L Critically low 3.5 - 5.1 mmol/L [facility] Sodium [Moles/Vol] 132 mmol/L Low 136 - 145 mmol/L [facility] Urea nitrogen [Mass/Vol] 68 mg/dL High 9 - 23 mg/d L [facility] CBC W Auto Differential pane l (Bld)Ordered By: Maria Victoria Macias on 11-25-2024 Basophils (Bld) [#/Vol] 0 10*3/uL 0.0 - 0.2 10*3/uL [facility] Basophils/100 WBC (Bld) 0.4 % 0.0 - 2.0 % [facility] Eosinophils (Bld) [#/Vol] 0 10*3/uL 0.0 - 0.5 10*3/uL [facility] Eosinophils/100 WBC (Bld) 0.5 % 0.0 - 6.0 % [facility] Erythrocyte distribution width (RBC) [Ratio] 13.2 % 11.5 - 15.0 % [facility] Hematocrit (Bld) [Volume fraction] 23.3 % Low 35.0 - 47.0 % [facility] Hemoglobin (Bld) [Mass/Vol] 8.1 g/dL Low 11.7 - 16.0 g/dL [facility] Immature granulocytes (Bld) [#/Vol] 0.2 10*3/uL High NINF - 0.1 10*3/uL [facility] Immature granulocytes/100 WBC (Bld) 1.9 % 0.0 - 2.0 % [facility] Interpretation and review of laboratory results Abnormal [facility] IPF 4 [facility] Lymphocytes (Bld) [#/Vol] 0.7 10*3/uL Low 1.0 - 4.3 10*3/uL [facility] Lymphocytes/100 WBC (Bld) 7.9 % Low 15.0 - 45.0 % [facility] MCH (RBC) [Entitic mass] 35.4 pg High 26. 0 - 34.0 pg [facility] MCHC (RBC) [Mass/Vol] 34.8 % 30.5 - 36.0 % [facility] MCV (RBC) [Entitic vol] 101.7 fL High 77.0 - 99.0 fL [facility] Monocytes (Bld) [#/Vol] 0.4 10*3/uL 0.0 - 0.9 10*3/uL [facility] Monocytes/100 WBC (Bld) 4.4 % Low 5.0 - 13.0 % [facility] Neutrophils (Bld) [#/Vol] 7.2 10*3/uL 1.8 - 7.5 10*3/uL [facility] Neutrophils/100 WBC (Bld) 84.9 % High 38.0 - 82.0 % [facility] Nucleated RBC/100 WBC (Bld) [Ratio] 0.5 % [facility] Platelet mean volume (Bld) [Entitic vol] 11 fL 9.0 - 12.7 fL [facility] Platelets (Bld) [#/Vol] 91 10*3/uL Low 140 - 440 10*3/uL [facility] RBC (Bld) [#/Vol] 2.29 10*6/uL Low 3.80 - 5.2 0 10*6/uL [facility] WBC (Bld) [#/Vol] 8.5 10*3/uL 3.6 - 10.7 10*3/uL [facility] CBC WITH AUTO DIFFERENTIALon 11-25-2024 Basophils (Bld) [#/Vol] 0.0 10*3/uL Normal 0.0-0.2 [facility] Comment on above: Performed By: #### L [id number] ####Systems Mgr: JESSY OWENS ([phone])[facility] ([facility])[address] [place] [address] Basophils/100 WBC (Bld) 0.4 % Normal 0.0-2.0 [facility] Comment on above: Performed By: #### L [id number] ####Systems Mgr: JESSY OWENS ([id number])[facility])[address] [place] [address] Eosinophils (Bld) [#/Vol] 0.0 10*3/uL Normal 0.0-0.5 [facility] Comment on above: Performed By: #### L [id number] ####Systems Mgr: JESSY OWENS ([id number])[facility])[address] [place] [address] Eosinophils/100 WBC (Bld) 0.5 % Normal 0.0-6.0 [facility] Comment on above: Performed By: #### L [id number] ####Systems Mgr: JESSY OWENS ([id number])[facility] ([facility])[address] [place] [address] Erythrocyte distribution width (RBC) [Ratio] 13.2 % Normal 11.5-15.0 [facility] Comment on above: Performed By: #### L [id number] ####Systems Mgr: JESSY OWENS ([id number])[facility])[address] [place] [address] Hematocrit (Bld) [Volume fraction] 23.3 % Low 35.0-47.0 [facility] Comment on above: Performed By: #### L [id number] ####Systems Mgr: JESSY OWENS ([phone])[facility])[address] [place] [address] Hemoglobin (Bld) [Mass/Vol] 8.1 g/dL Low 11.7-16.0 [facility] Comment on above: Performed By: #### L [id number] ####Systems Mgr: JESSY OWENS ([id number])[facility])[address] [place] [address] IMMATURE GRANS % 1.9 % Normal 0.0-2.0 [facility] Comment on above: Performed By: #### L [id number] ####Systems Mgr: JESSY OWENS ([id number])[facility])[address] [place] [address] IMMATURE GRANS ABSOLUTE 0.2 10*3/uL High <0.1 [facility] Comment on above: Performed By: #### L [id number] ####Systems Mgr: JESSY OWENS ([phone])[facility])[address] [place] [address] [place] IPF 4 Normal [facility] Comment on above: Performed By: #### L [id number] ####Systems Mgr: JESSY OWENS ([id number])[facility])[address] [place] [address] Lymphocytes (Bld) [#/Vol] 0.7 10*3/uL Low 1.0-4.3 [facility] Comment on above: Performed By: #### L [id number] ####Systems Mgr: JESSY OWENS ([id number])[facility])[address] [place] [address] Lymphocytes/100 WBC (Bld) 7.9 % Low 15.0-45.0 [facility] Comment on above: Performed By: #### L [id number] ####Systems Mgr: JESSY OWENS ([id number])[facility])[address] [place] [address] MCH (RBC) [Entitic mass] 35.4 pg High 26.0-34.0 [facility] Comment on above: Performed By: #### L [id number] ####Systems Mgr: JESSY OWENS ([id number])[address] MCHC 34.8 % Normal 30.5-36.0 [facility] Comment on above: Performed By: #### L [id number] ####Systems Mgr: JESSY [id number])[facility] ([facility])[address] [place] [address] MCV (RBC) [Entitic vol] 101.7 fL High 77.0-99.0 [facility] Comment on above: Performed By: #### L [id number] ####Systems Mgr: JESSY OWENS ([id number])[facility] ([facility])[address] [place] [address] Monocytes (Bld) [#/Vol] 0.4 10*3/uL Normal 0.0-0.9 [facility] Comment on above: Performed By: #### L [id number] ####Systems Mgr: JESSY OWENS ([id number])[facility] ([facility])[address] [place] [address] Monocytes/100 WBC (Bld) 4.4 % Low 5.0-13.0 [facility] Comment on above: Performed By: #### L [id number] ####Systems Mgr: JESSY OWENS ([id number])[facility] ([facility])[address] [place] [address] NEUTROPHILS ABSOLUTE 7.2 10*3/uL Normal 1.8-7.5 [facility] Comment on above: Performed By: #### L [id number] ####Systems Mgr: JESSY OWENS ([id number])[facility] ([facility])[address] [place] [address] Neutrophils/100 WBC (Bld) 84.9 % High 38.0-82.0 [facility] Comment on above: Performed By: #### L [id number] ####Systems Mgr: JESSY OWENS ([id number])[facility] ([facility])[address] [place] [address] NRBC 0.5 /100 WBCs Normal 0.0-2.0 [facility] Comment on above: Performed By: #### L [id number] ####Systems Mgr: JESSY OWENS ([id number])[facility] ([facility])[address] [place] [address] Platelet mean volume (Bld) [Entitic vol] 11.0 fL Normal 9.0-12.7 [facility] Comment on above: Performed By: #### L [id number] ####Systems Mgr: JESSY OWENS ([id number])[facility] ([facility])[address] [place] [address] Platelets (Bld) [#/Vol] 91 10*3/uL Low 140-440 [facility] Comment on above: Performed By: #### L [id number] ####Systems Mgr: JESSY OWENS ([id number])[facility] ([facility])[address] [place] [address] RBC (Bld) [#/Vol] 2.29 10*6/uL Low 3.80-5.20 [facility] Comment on above: Performed By: #### L [id number] ####Systems Mgr: JESSY OWENS ([id number])[facility] ([facility])[address] [place] [address] WBC (Bld) [#/Vol] 8.5 10*3/uL Normal 3.6-10.7 [facility] Comment on above: Performed By: #### L [id number] ####Systems Mgr: JESSY OWENS ([id number])[facility] ([facility])[address] [place] [address] Consulton 11-25-2024 Consult Normal [facility] Consult Normal [facility] Laboratory - Chemistry and C hemistry - challengeOrdered By: Emily Platt on 11-25-2024 Base excess Calc (Bld) [Moles/Vol] -8 mmol/L Low -3.0 - 3.0 mmol/L [facility] CO2 (Bld) [Partial pressure] 25.4 mm[Hg] Low - PINF [facility] CO2 [Moles/Vol] 16.4 mmol/L Low 23.0 - 27.0 mmol/L [facility] HCO3 (Bld) [Moles/Vol] 15.6 mmol/L Low 21.0 - 25.0 mmol/L [facility] Oxygen (Bld) [Partial pressure] 111.8 mm[Hg] High [facility] pH (Bld) 7.407 [pH] 7.350 - 7.450 [facility] Laboratory - Chemistry and C hemistry - challengeon 11-25-2024 Magnesium [Mass/Vol] 2 mg/dL 1.6 - 2 .6 mg/dL [facility] Average glucose Estimated from glycated hemoglobin (Bld) [Mass/Vol] 105 mg/dL [facility] Laboratory - Hematology and Cell countsOrdered By: Emily Platt on 11-25-2024 Hemoglobin (Bld) [Mass/Vol] 8.4 g/dL Screen only [facility] Laboratory - Hematology and Cell countson 11-25-2024 HbA1c (Bld) [Mass fraction] 5.3 % NINF [facility] MAGNESIUMon 11-25-2024 Magnesium [Mass/Vol] 2.0 mg/dL Normal 1.6-2.6 [facility] Comment on above: Result Comment: TANA Wick COMMENTS:Higher values can be expected in females during menses. Performed By: #### L [id number], [id number], [id number] ####Systems Mgr: JESSY OWENS ([id number])[address] Magnesium [Mass/Vol]on 11-25 Interpretation and review of laboratory results Normal [facility] No Panel Informationon 11-25 [facility] CV CPACS [facility] No Panel InformationOrdered By: Emily Platt on 11-25-2024 Amount Of Oxygen room air [facility] Interpretation and review of laboratory results Abnormal [facility] Source Of Oxygen None (Room Air) [facility] No Panel InformationOrdered By: Sadaf Cueto on 11-25-2024 Interpretation and review of laboratory results Abnormal [facility] mecA/C (MRSE/MRSL) Not detected Not Detected [facility] Staphylococcus epidermidis Detected Abnormal Not Detected [facility] PHOSPHORUSon 11-25-2024 Phosphate [Mass/Vol] 3.2 mg/dL Normal 2.3-4.7 [facility] Comment on above: Performed By: #### L AB15, [id number], [id number] ####Systems Mgr: JESSY OWENS ([id number])[facility] ([facility])[address] [place] [address] Phosphate [Moles/Vol]on Interpretation and review of laboratory results Normal [facility] Phosphate [Mass/Vol] 3.2 mg/dL 2.3 - 4 .7 mg/dL [facility] Progress Noteon 11-25-2024 Progress Note Normal [facility] Progress Note Normal [facility] Progress Note Normal [facility] US ABDOMEN LIMITEDon 025 US ABDOMEN LIMITED Normal [facility] US Abdomen limitedon 025 [facility] Radiology Study observation (narrative) [facility] US Abdomen limitedOrdered By : Jean-Pierre Manuel on 11-25-2024 [facility] [employer] Phone: US Heart TransthoracicOrdere d By: Chino Zeng on 11-25-2024 Aortic Arch 2.8 cm [facility] Phone: Aortic Sinus Valsalva 3.3 cm [facility] Phone: Aortic Sinus Valsalva Index 1.43 cm/m2 [employer] [facility] Phone: Aortic valve Mean systole pressure gradient by US.doppler derived full Bernoulli 6 mmHg [facility] [employer] Work Phone: Aortic valve Orifice area by US 3.1 cm2 [facility] Phone: Aortic valve Peak systolic flow by US.doppler 1.1 m/s [employer] [facility] Phone: Ascending Aorta 3.5 cm [facility] [employer] Work Phone: Ascending Aorta Index 1.52 cm/m2 [facility] [employer] Work Phone: AV Area by Peak Velocity 2.4 cm2 [facility] [employer] [facility] [employer] Phone: AV Area by VTI 2.7 cm2 [facility] [employer] Work Phone: AV Peak Gradient 11 mmHg [facility] Work Phone: [phone] AV Peak Velocity 1.7 m/s [facility] Work Phone: [phone] AV Velocity Ratio 0.76 [facility] Work Phone: [phone] AV VTI 33.1 cm [facility] Work Phone: [phone] GEOVANI/BSA Peak Velocity 1 cm2/m2 [facility] Work Phone: [phone] GEOVANI/BSA VTI 1.2 cm2/m2 [facility] Work Phone: [phone] E/E' Septal 6.67 [facility] Work Phone: [phone] Est. RA Pressure 8 mmHg [facility] Work Phone: [phone] Fractional Shortening 2D 38 % 28 - 44 % [facility] Work Phone: [phone] Interpretation and review of laboratory results Abnormal [facility] Work Phone: [phone] IVC Diameter 1.6 cm [facility] Work Phone: [phone] IVSd 0.9 cm 0.6 - 0.9 cm [facility] Work Phone: [phone] LA Diameter 4.2 cm [facility] Work Phone: [phone] LA Size Index 1.83 cm/m2 [facility] Work Phone: [phone] LV E' Septal Velocity 9 cm/s [facility] Work Phone: [phone] LV Mass 2D 153.4 g 67 - 162 g [facility] Work Phone: LV Mass 2D Index 66.7 g/m2 43 - 95 g/m2 [facility] Work Phone: LV RWT Ratio 0.43 [facility] Work Phone: LVIDd 4.7 cm 3.9 - 5.3 cm [facility] Work Phone: LVIDd Index 2.04 cm/m2 [facility] Work Phone: LVIDs 2.9 cm [facility] Work Phone: LVIDs Index 1.26 cm/m2 [facility] Work Phone: [phone] LVOT Cardiac Output 5.3 liter/minute [facility] Work Phone: [phone] LVOT Diameter 2 cm [facility] Work Phone: [phone] LVOT Mean Gradient 4 mmHg [facility] Work Phone: [phone] LVOT Peak Gradient 7 mmHg [facility] Work Phone: [phone] LVOT Peak Velocity 1.3 m/s [facility] Work Phone: [phone] LVOT Stroke Volume Index 39.9 mL/m2 [facility] Work Phone: [phone] LVOT SV 91.7 ml [facility] Work Phone: [phone] LVOT VTI 29.2 cm [facility] Work Phone: [phone] LVOT:AV VTI Index 0.88 [facility] Work Phone: LVPWd 1 cm Abnormal 0.6 - 0.9 cm [facility] Work Phone: [phone] MV A Velocity 0.46 m/s [facility] Work Phone: MV E Velocity 0.6 m/s [facility] Work Phone: MV E Wave Deceleration Time 210 ms [facility] Work Phone: MV E/A 1.3 [facility] Work Phone: RV Free Wall Peak S' 11 cm/s [facility] Work Phone: [phone] RVSP 26 mmHg [facility] Work Phone: [phone] Sinotubular Junction 2.9 cm [facility] Work Phone: [phone] TAPSE 2.2 cm 1.7 cm [facility] Work Phone: [phone] TR Max Velocity 2.11 m/s [facility] Work Phone: [phone] TR Peak Gradient 18 mmHg [facility] Work Phone: [phone] [facility] Work Phone: US Heart Transthoracicon CV CPACS XR CHEST 1 VIEWon 11-25-2024 XR CHEST 1 VIEW Normal [facility] XR Chest Single viewon 11-25 [facility] Radiology Study observation (narrative) [facility] XR Chest Single viewOrdered By: Nury Ayala on 11-25-2024 [facility] Work Phone: BLOOD CULTUREon 11-24-2024 Bacteria identified Cx Nom (Bld) Normal [facility] Comment on above: Performed By: #### L [id number], [id number] ####Systems Mgr: JESSY OWENS ([id number])[facility] ([facility])[address] [place] [address] Performed By: #### L [id number] ####Systems Mgr: JESSY OWENS ([id number])[facility] ([facility])[address] [place] [address] BLOOD CULTURE IDENTIFICATION - ANAEROBICon 11-24-2024 BLOOD CULTURE IDENTIFICATION - ANAEROBIC Normal [facility] Comment on above: Performed By: #### L [id number], [id number] ####Systems Mgr: JESSY OWENS ([phone])[facility])[address] [place] [address] BLOOD GAS, VENOUSon 11-25-19 25 AMOUNT OF OXYGEN Normal [facility] Comment on above: Result Comment: TANA Wick COMMENTS:Assessment of oxygenation is best done with an arterial blood gas determination. Reference ranges for pO2, bicarbonate, and base excess are for mixed venous blood. Specimens drawn from a peripheral vein will often have higher values. Performed By: #### L [id number] ####Systems Mgr: JESSY OWENS ([phone])[facility] ([facility])[address] [place] [address] Base excess Calc (BldV) [Moles/Vol] -8.0000 mmol/L Low -3.0-3.0 [facility] Comment on above: Performed By: #### L AB79 ####Systems Mgr: JESSY OWENS ([phone])[facility] ([facility])[address] [place] [address] [place] CO2 [Moles/Vol] 17.4 mmol/L Low 24.0-28.0 [facility] Comment on above: Performed By: #### L AB79 ####Systems Mgr: JESSY OWENS ([id number])[facility])[address] [place] [address] HCO3 (Bld) [Moles/Vol] 16.5 mmol/L Low 23.0-27.0 [facility] Comment on above: Performed By: #### L AB79 ####Systems Mgr: JESSY OWENS ([id number])[facility])[address] [place] [address] Hemoglobin (Bld) [Mass/Vol] 8.8 g/dL Normal Screen only [facility] Comment on above: Performed By: #### L AB79 ####Systems Mgr: JESSY OWENS ([id number])[facility])[address] [place] [address] OXYGEN (MM HG) IN VENOUS BLOOD 35.3 mm Hg Normal [facility] Comment on above: Performed By: #### L AB79 ####Systems Mgr: JESSY OWENS ([phone])[facility])[address] [place] [address] OXYGEN SATURATION (%) IN VENOUS BLOOD 56.4 % Normal [facility] Comment on above: Performed By: #### L AB79 ####Systems Mgr: JESSY OWENS ([phone])[facility])[address] [place] [address] PCO2, DENIA 29.6 mm Hg Low 40.0-55.0 [facility] Comment on above: Performed By: #### L AB79 ####Systems Mgr: JESSY OWENS ([id number])[facility])[address] [place] [address] PH VENOUS 7.363 Normal 7.330-7.430 [facility] Comment on above: Performed By: #### L AB79 ####Systems Mgr: JESSY OWENS ([id number])[facility] ([facility])[address] [place] [address] SOURCE OF OXYGEN None (Room Air) Normal [facility] Comment on above: Performed By: #### L AB79 ####Systems Mgr: JESSY OWENS ([id number])[facility] ([facility])[address] [place] [address] C-REACTIVE PROTEINon 025 CRP [Mass/Vol] 136.4 mg/L High <5.0 [facility] Comment on above: Performed By: #### L [id number], [id number], [id number] ####Systems Mgr: JESSY OWENS ([id number])[facility] ([facility])[address] [place] [address] CBC W Auto Differential pane l (Bld)on 11-24-2024 Basophils (Bld) [#/Vol] 0 10*3/uL 0.0 - 0.2 10*3/uL [facility] Basophils/100 WBC (Bld) 0.3 % 0.0 - 2.0 % [facility] Eosinophils (Bld) [#/Vol] 0 10*3/uL 0.0 - 0.5 10*3/uL [facility] Eosinophils/100 WBC (Bld) 0.3 % 0.0 - 6.0 % [facility] Erythrocyte distribution width (RBC) [Ratio] 12.9 % 11.5 - 15.0 % [facility] Hematocrit (Bld) [Volume fraction] 26.7 % Low 35.0 - 47.0 % [facility] Hemoglobin (Bld) [Mass/Vol] 9.1 g/dL Low 11.7 - 16.0 g/dL [facility] Immature granulocytes (Bld) [#/Vol] 0.1 10*3/uL High NINF - 0.1 10*3/uL [facility] Immature granulocytes/100 WBC (Bld) 1 % 0.0 - 2.0 % [facility] Interpretation and review of laboratory results Abnormal [facility] Lymphocytes (Bld) [#/Vol] 0.7 10*3/uL Low 1.0 - 4.3 10*3/uL [facility] Lymphocytes/100 WBC (Bld) 7.7 % Low 15.0 - 45.0 % [facility] MCH (RBC) [Entitic mass] 34.1 pg High 26. 0 - 34.0 pg [facility] MCHC (RBC) [Mass/Vol] 34.1 % 30.5 - 36.0 % [facility] MCV (RBC) [Entitic vol] 100 fL High 77.0 - 99.0 fL [facility] Monocytes (Bld) [#/Vol] 0.3 10*3/uL 0.0 - 0.9 10*3/uL [facility] Monocytes/100 WBC (Bld) 3.5 % Low 5.0 - 13.0 % [facility] Neutrophils (Bld) [#/Vol] 7.7 10*3/uL High 1.8 - 7.5 10*3/uL [facility] Neutrophils/100 WBC (Bld) 87.2 % High 38.0 - 82.0 % [facility] Nucleated RBC/100 WBC (Bld) [Ratio] 0.5 % [facility] Platelet mean volume (Bld) [Entitic vol] 11 fL 9.0 - 12.7 fL [facility] Platelets (Bld) [#/Vol] 104 10*3/uL Low 140 - 440 10*3/uL [facility] RBC (Bld) [#/Vol] 2.67 10*6/uL Low 3.80 - 5.2 0 10*6/uL [facility] WBC (Bld) [#/Vol] 8.9 10*3/uL 3.6 - 10.7 10*3/uL [facility] CBC WITH AUTO DIFFERENTIALon 11-24-2024 Basophils (Bld) [#/Vol] 0.0 10*3/uL Normal 0.0-0.2 [facility] Comment on above: Performed By: #### L [id number], [id number] ####Systems Mgr: JESSY OWENS ([id number])[address] Basophils/100 WBC (Bld) 0.3 % Normal 0.0-2.0 [facility] Comment on above: Performed By: #### L AB322, [id number] ####Systems Mgr: JESSY OWENS ([id number])[facility])[address] [place] [address] Eosinophils (Bld) [#/Vol] 0.0 10*3/uL Normal 0.0-0.5 [facility] Comment on above: Performed By: #### L AB322, [id number] ####Systems Mgr: JESSY OWENS ([id number])[facility])[address] [place] [address] Eosinophils/100 WBC (Bld) 0.3 % Normal 0.0-6.0 [facility] Comment on above: Performed By: #### Davidson AB322, [id number] ####Systems Mgr: JESSY OWENS ([id number])[address] Erythrocyte distribution width (RBC) [Ratio] 12.9 % Normal 11.5-15.0 [facility] Comment on above: Performed By: #### Davidson AB322, [id number] ####Systems Mgr: JESSY OWENS ([id number])[address] Hematocrit (Bld) [Volume fraction] 26.7 % Low 35.0-47.0 [facility] Comment on above: Performed By: #### Davidson AB322, [id number] ####Systems Mgr: JESSY OWENS ([id number])[facility])[address] [place] [address] Hemoglobin (Bld) [Mass/Vol] 9.1 g/dL Low 11.7-16.0 [facility] Comment on above: Performed By: #### Davidson AB322, [id number] ####Systems Mgr: JESSY OWENS ([id number])[facility])[address] [place] [address] IMMATURE GRANS % 1.0 % Normal 0.0-2.0 [facility] Comment on above: Performed By: #### L AB322, [id number] ####Systems Mgr: JESSY [id number])[facility])[address] [place] [address] IMMATURE GRANS ABSOLUTE 0.1 10*3/uL High <0.1 [facility] Comment on above: Performed By: #### Davidson [id number], [id number] ####Systems Mgr: JESSY OWENS ([phone])[facility])[address] [place] [address] Lymphocytes (Bld) [#/Vol] 0.7 10*3/uL Low 1.0-4.3 [facility] Comment on above: Performed By: #### aDvidson [id number], [id number] ####Systems Mgr: JESSY OWENS ([phone])[facility])[address] [place] [address] Lymphocytes/100 WBC (Bld) 7.7 % Low 15.0-45.0 [facility] Comment on above: Performed By: #### Davidson [id number], [id number] ####Systems Mgr: JESSY OWENS ([phone])[facility])[address] [place] [address] MCH (RBC) [Entitic mass] 34.1 pg High 26.0-34.0 [facility] Comment on above: Performed By: #### Davidson [id number], [id number] ####Systems Mgr: JESSY OWENS ([id number])[facility])[address] [place] [address] MCHC 34.1 % Normal 30.5-36.0 [facility] Comment on above: Performed By: #### Davidson AB322, [id number] ####Systems Mgr: JESSY OWENS ([id number])[facility])[address] [place] [address] MCV (RBC) [Entitic vol] 100.0 fL High 77.0-99.0 [facility] Comment on above: Performed By: #### Davidson AB322, [id number] ####Systems Mgr: JESSY OWENS ([id number])[facility] ([facility] [place] [address] Monocytes (Bld) [#/Vol] 0.3 10*3/uL Normal 0.0-0.9 [facility] Comment on above: Performed By: #### L AB322, [id number] ####Systems Mgr: JESSY OWENS ([id number])[facility] ([facility])[address] [place] [address] Monocytes/100 WBC (Bld) 3.5 % Low 5.0-13.0 [facility] Comment on above: Performed By: #### L [id number], [id number] ####Systems Mgr: JESSY OWENS ([id number])[facility] ([facility])[address] [place] [address] NEUTROPHILS ABSOLUTE 7.7 10*3/uL High 1.8-7.5 [facility] Comment on above: Performed By: #### Davidson AB322, [id number] ####Systems Mgr: JESSY OWENS ([id number])[facility] ([facility])[address] [place] [address] Neutrophils/100 WBC (Bld) 87.2 % High 38.0-82.0 [facility] Comment on above: Performed By: #### L [id number], [id number] ####Systems Mgr: JESSY OWENS ([id number])[facility] ([facility])[address] [place] [address] NRBC 0.5 /100 WBCs Normal 0.0-2.0 [facility] Comment on above: Performed By: #### L [id number], [id number] ####Systems Mgr: JESSY OWENS ([id number])[facility])[address] [place] [address] Platelet mean volume (Bld) [Entitic vol] 11.0 fL Normal 9.0-12.7 [facility] Comment on above: Performed By: #### L [id number], [id number] ####Systems Mgr: JESSY [id number])[facility] ([facility])[address] [place] [address] Platelets (Bld) [#/Vol] 104 10*3/uL Low 140-440 [facility] Comment on above: Performed By: #### L AB322, [id number] ####Systems Mgr: JESSY OWENS ([id number])[facility] ([facility])[address] [place] [address] RBC (Bld) [#/Vol] 2.67 10*6/uL Low 3.80-5.20 [facility] Comment on above: Performed By: #### L [id number], [id number] ####Systems Mgr: JESSY OWENS ([id number])[facility] ([facility])[address] [place] [address] WBC (Bld) [#/Vol] 8.9 10*3/uL Normal 3.6-10.7 [facility] Comment on above: Performed By: #### L AB322, [id number] ####Systems Mgr: JESSY OWENS ([id number])[facility] ([facility])[address] [place] [address] CKon 11-24-2024 CK [Catalytic activity/Vol] 59 U/L Normal 30-185 [facility] Comment on above: Performed By: #### L [id number], [id number] ####Systems Mgr: JESSY OWENS ([id number])[facility] ([facility])[address] [place] [address] CK [Catalytic activity/Vol]o n 11-24-2024 Interpretation and review of laboratory results Normal [facility] COMPLETE URINALYSIS WITH REF MARIN TO CULTUREon 11-24-2024 BACTERIA (#/HPF) IN URINE Few Abnormal Negative [facility] Comment on above: Performed By: #### L [id number], [id number] ####Systems Mgr: JESSY OWENS ([id number])[facility])[address] [place] [address] BILIRUBIN, TOTAL PRESENCE IN URINE Negative Normal Negative [facility] Comment on above: Performed By: #### L [id number], [id number] ####Systems Mgr: JESSY OWENS ([id number])[facility] ([facility])[address] [place] [address] Clarity (U) Turbid Abnormal Clear [facility] Comment on above: Performed By: #### L [id number], [id number] ####Systems Mgr: JESSY OWENS ([id number])[facility])[address] [place] [address] Color (U) Yellow Normal Lt. Yellow [facility] Comment on above: Performed By: #### L [id number], [id number] ####Systems Mgr: JESSY OWENS ([id number])[facility])[address] [place] [address] GLUCOSE (MG/DL) IN URINE Normal Normal Normal (<70 ) [facility] Comment on above: Performed By: #### L [id number], [id number] ####Systems Mgr: JESSY OWENS ([id number])[facility])[address] [place] [address] HEMOGLOBIN PRESENCE IN URINE 1.0 mg/dL Abnormal Negative [facility] Comment on above: Performed By: #### L [id number], [id number] ####Systems Mgr: JESSY OWENS ([id number])[facility])[address] [place] [address] HYALINE CASTS (#/LPF) IN URINE SEDIMENT BY MICROSCOPY Negative Normal Negative [facility] Comment on above: Performed By: #### L [id number], [id number] ####Systems Mgr: JESSY OWENS ([id number])[facility])[address] [place] [address] Ketones Ql (U) Negative Normal Negative [facility] Comment on above: Performed By: #### L [id number], [id number] ####Systems Mgr: JESSY OWENS ([id number])[facility])[address] [place] [address] LEUKOCYTE ESTERASE PRESENCE IN URINE BY TEST STRIP 500 William/uL Abnormal Negative [facility] Comment on above: Performed By: #### L [id number], [id number] ####Systems Mgr: JESSY OWENS ([id number])[facility])[address] [place] [address] MUCUS (#/LPF) IN URINE SEDIMENT Few Normal Negative [facility] Comment on above: Performed By: #### L [id number], [id number] ####Systems Mgr: JESSY OWENS ([id number])[facility] ([facility])[address] [place] [address] NITRITE PRESENCE IN URINE Negative Normal Negative [facility] Comment on above: Performed By: #### L [id number], [id number] ####Systems Mgr: JESSY OWENS ([id number])[facility])[address] [place] [address] pH (U) 5.5 [pH] Normal 5.0-8.0 [facility] Comment on above: Performed By: #### L [id number], [id number] ####Systems Mgr: JESSY OWENS ([id number])[facility])[address] [place] [address] Protein (U) [Mass/Vol] 50 mg/dL Abnormal Negative [facility] Comment on above: Performed By: #### L [id number], [id number] ####Systems Mgr: JESSY OWENS ([id number])[facility])[address] [place] [address] RBC (#/HPF) IN URINE SEDIMENT 3-5 Abnormal 0-2 [facility] Comment on above: Performed By: #### L [id number], [id number] ####Systems Mgr: JESSY OWENS ([id number])[facility])[address] [place] [address] Specific gravity (U) [Rel density] 1.013 Normal 1.005-1.030 [facility] Comment on above: Result Comment: TANA iWck COMMENTS:This specimen has been reflexed to urine culture. Performed By: #### L [id number], [id number] ####Systems Mgr: JESSY OWENS ([id number])[facility])[address] [place] [address] SQUAMOUS EPITHELIAL CELLS (#/HPF) IN URINE SEDIMENT 3-5 Normal 3-5 [facility] Comment on above: Performed By: #### L [id number], [id number] ####Systems Mgr: JESSY OWENS ([id number])[facility] ([facility])[address] [place] [address] UROBILINOGEN (MG/DL) IN URINE 3 mg/dL Abnormal Normal (0-1) [facility] Comment on above: Performed By: #### L [id number], [id number] ####Systems Mgr: JESSY OWENS ([id number])[facility])[address] [place] [address] WBC (LEUKOCYTE) (#/HPF) IN URINE SEDIMENT 51-100 Abnormal 0-5 [facility] Comment on above: Performed By: #### L [id number], [id number] ####Systems Mgr: JESSY WOENS ([id number])[facility])[address] [place] [address] COMPREHENSIVE METABOLIC PANE Neo 11-24-2024 Albumin [Mass/Vol] 2.2 g/dL Low 3.4-4.8 [facility] Comment on above: Performed By: #### L AB149, LAB17, [id number] ####Systems Mgr: JESSY OWENS ([id number])[facility] ([facility])[address] [place] [address] ALP [Catalytic activity/Vol] 111 U/L Normal 40-150 [facility] Comment on above: Performed By: #### L AB149, LAB17, [id number] ####Systems Mgr: JESSY OWENS ([id number])[facility])[address] [place] [address] ALT [Catalytic activity/Vol] 10 U/L Normal <30 [facility] Comment on above: Performed By: #### L AB149, LAB17, [id number] ####Systems Mgr: JESSY OWENS ([id number])[facility] ([facility])[address] [place] [address] Anion gap [Moles/Vol] 18 mmol/L High 3-13 [facility] Comment on above: Performed By: #### Davidson CASILLAS, LAB17, [id number] ####Systems Mgr: JESSY OWENS ([id number])[facility] ([facility])[address] [place] [address] AST [Catalytic activity/Vol] 25 U/L Normal <34 [facility] Comment on above: Performed By: #### Davidson CASILLAS, LAB17, [id number] ####Systems Mgr: JESSY OWENS ([id number])[facility] ([facility])[address] [place] [address] Bilirubin [Mass/Vol] 2.0 mg/dL High <1.2 [facility] Comment on above: Performed By: #### Davidson CASILLAS, LAB17, [id number] ####Systems Mgr: JESSY OWENS ([id number])[facility] ([facility])[address] [place] [address] Calcium [Mass/Vol] 8.2 mg/dL Low 8.8-10.0 [facility] Comment on above: Performed By: #### Davidson CASILLAS, LAB17, [id number] ####Systems Mgr: JESSY OWENS ([id number])[facility] ([facility])[address] [place] [address] Chloride [Moles/Vol] 95 mmol/L Low 98-107 [facility] Comment on above: Performed By: #### Davidson CASILLAS, LAB17, [id number] ####Systems Mgr: JESSY OWENS ([id number])[facility])[address] [place] [address] CO2 [Moles/Vol] 13 mmol/L Low 23-31 [facility] Comment on above: Performed By: #### Davidson CASILLAS, LAB17, [id number] ####Systems Mgr: JESSY OWENS ([id number])[facility])[address] [place] [address] Creatinine [Mass/Vol] 1.59 mg/dL High 0.57-1.11 [facility] Comment on above: Performed By: #### Davidson CASILLAS, LAB17, [id number] ####Systems Mgr: JESSY OWENS ([id number])[facility])[address] [place] [address] GLOMERULAR FILTRATION RATE ML/MIN/1.73 SQ M.PREDICTED 36.6 mL/min/1.73m*2 Low >60.0 [facility] Comment on above: Result Comment: Calc ulation based on the Chronic Kidney Disease Epidemiology Collaboration (CKD-EPI) equation refit without adjustment for race Performed By: #### Davidson CASILLAS, LAB17, [id number] ####Systems Mgr: JESSY OWENS ([id number])[facility])[address] [place] [address] Glucose [Mass/Vol] 116 mg/dL High 82-115 [facility] Comment on above: Performed By: #### Davidson CASILLAS, LAB17, [id number] ####Systems Mgr: JESSY OWENS ([id number])[facility])[address] [place] [address] Potassium [Moles/Vol] 3.5 mmol/L Normal 3.5-5.1 [facility] Comment on above: Result Comment: [facility] potassium values may be up to 0.5 mmol/L lower than serum values. Performed By: #### Davidson ABZeina, LAB17, [id number] ####Systems Mgr: JESSY OWENS ([id number])[facility])[address] [place] [address] Protein [Mass/Vol] 5.9 g/dL Low 6.4-8.3 [facility] Comment on above: Performed By: #### Davidson CASILLAS, LAB17, [id number] ####Systems Mgr: JESSY OWENS ([id number])[facility] ([facility])[address] [place] [address] Sodium [Moles/Vol] 126 mmol/L Low 136-145 [facility] Comment on above: Performed By: #### L AB149, LAB17, [id number] ####Systems Mgr: JESSY OWENS ([id number])[facility] ([facility])[address] [place] [address] Urea nitrogen [Mass/Vol] 92 mg/dL High 9-23 [facility] Comment on above: Performed By: #### L AB149, LAB17, [id number] ####Systems Mgr: JESSY OWENS ([id number])[facility] ([facility])[address] [place] [address] CULTURE ANAEROBICon 11-25-19 CULTURE ANAEROBIC Normal [facility] Comment on above: Performed By: #### L [id number] ####Systems Mgr: JESSY OWENS ([phone])[facility] ([facility])[address] [place] [address] CULTURE, AEROBIC BACTERIA WI TH GRAM STAINon 11-24-2024 CULTURE, AEROBIC BACTERIA WITH GRAM STAIN Normal [facility] Comment on above: Performed By: #### L [id number] ####Systems Mgr: JESSY OWENS ([id number])[facility])[address] [place] [address] Comprehensive metabolic 1998 panelon 11-24-2024 Albumin [Mass/Vol] 2.2 g/dL Low 3.4 - 4.8 g/dL [facility] ALP [Catalytic activity/Vol] 111 U/L 40 - 150 U/L [facility] ALT [Catalytic activity/Vol] 10 U/L NINF - 30 U/L [facility] Anion gap [Moles/Vol] 18 mmol/L High 3 - 13 mmol/L [facility] AST [Catalytic activity/Vol] 25 U/L NINF - 34 U/L [facility] Bilirubin [Mass/Vol] 2 mg/dL High NINF - 1.2 mg/dL [facility] Calcium [Mass/Vol] 8.2 mg/dL Low 8.8 - 10. 0 mg/dL [facility] Chloride [Moles/Vol] 95 mmol/L Low 98 - 10 7 mmol/L [facility] CO2 [Moles/Vol] 13 mmol/L Low 23 - 31 mmol/L [facility] Creatinine [Mass/Vol] 1.59 mg/dL High 0.57 - 1.11 mg/dL [facility] GFR/1.73 sq M.predicted (S/P/Bld) [Vol rate/Area] 36.6 mL/min Low - PINF [facility] Glucose [Mass/Vol] 116 mg/dL High 82 - 115 mg/dL [facility] Potassium [Moles/Vol] 3.5 mmol/L 3.5 - 5.1 mmol/L [facility] Protein [Mass/Vol] 5.9 g/dL Low 6.4 - 8.3 g/dL [facility] Sodium [Moles/Vol] 126 mmol/L Low 136 - 145 mmol/L [facility] Urea nitrogen [Mass/Vol] 92 mg/dL High 9 - 23 mg/d L [facility] Consulton 11-24-2024 Consult Normal [facility] ECG 12-LEADon 11-24-2024 ECG 12-LEAD IMPRESSION: Sinus rhythm Ventricular premature complex Repol abnrm suggests ischemia, anterolateral Electronically Signed On 11-24-2024 22:22:19 EDT by Luana Israel Normal [facility] ED Nursing Noteon 11-24-2024 ED Nursing Note Report to Lauren on T3. Normal [facility] ED Nursing Note Pt completely covered in stool. Pt cleaned up. Pt has multiple wounds. Pictures uploaded to chart. Normal [facility] ED Nursing Note Pt arrived from home for failure to thrive. Pt states she has been in so much pain that she has been unable to get out of her chair x1 week. Pt covered in feces and wound to left lower leg. Normal [facility] ED Provider Noteon ED Provider Note Normal [facility] ED Provider Note I did not participate in the care of this patient. Narendra Lai PA-C 11/24/24 1315 Normal [facility] ESR (Bld) [Velocity]Ordered By: Anna Torres on 11-24-2024 Interpretation and review of laboratory results Abnormal [facility] HEMOGLOBIN A1Con 11-24-2024 Glucose [Mass/Vol] 105 mg/dL Normal [facility] Comment on above: Result Comment: TANA R COMMENTS:HbA1c values of 5.7-6.4 percent indicate an increased risk for developing diabetes mellitus. HbA1c values greater than or equal to 6.5 percent are diagnostic of diabetes mellitus. For diagnosis of diabetes in individuals without unequivocal hyperglycemia, results should be confirmed by repeat testing. Performed By: #### L AB90 ####Systems Mgr: JESSY OWENS ([id number])[facility] ([facility] [place] [address] HEMOGLOBIN A1C 5.3 %HbA1C Normal <5.7 [facility] Comment on above: Result Comment: Norm al less than 5.7%Prediabetes 5.7% to 6.4%Diabetes 6.5% or higher--HgbA1C levels may not be accurate in patients who have renal disease, received recent blood transfusions, are anemic, or who have dyshemoglobinemia. Performed By: #### L AB90 ####Systems Mgr: JESSY OWENS ([id number])[facility] ([facility] [place] [address] HIGH SENSITIVITY TROPONIN, S ERIAL BASELINEon 11-24-2024 TROPONIN HS SERIAL BASELINE 3 ng/L Normal <=14 [facility] Comment on above: Result Comment: In i ndividuals presenting with symptoms > 2h, a baseline troponin <= 5 ng/L suggests acutecardiac injury is unlikely and further serial testing is generally not indicated. Performed By: #### L AB149, LAB17, [id number] ####Systems Mgr: JESSY OWENS ([id number])[facility] ([facility] [place] [address] HIGH SENSITIVITY TROPONIN, S ERIAL, SECOND TESTon 11-24-2024 2H TROPONIN HS (SERIAL 2ND TROPONIN) 3 ng/L Normal <=14 [facility] Comment on above: Result Comment: Risi ng or falling troponin delta below 2 ng/L as compared to baseline value suggests thatacute cardiac injury is unlikely. Performed By: #### L [id number], [id number] ####Systems Mgr: JESSY OWENS ([id number])[facility] ([facility])[address] [place] [address] LACTIC ACID WITH REFLEXon Lactate [Moles/Vol] 1.7 mmol/L Normal 0.5-2.2 [facility] Comment on above: Performed By: #### L [id number] ####Systems Mgr: JESSY OWENS ([id number])[facility] ([facility])[address] [place] [address] Laboratory - Chemistry and C hemistry - challengeon 11-24-2024 CK [Catalytic activity/Vol] 59 U/L 30 - 185 U/L [facility] Base excess Calc (BldV) [Moles/Vol] -8 mmol/L Low -3.0 - 3.0 mmol/L [facility] CO2 (BldV) [Partial pressure] 29.6 mm[Hg] Low [facility] CO2 [Moles/Vol] 17.4 mmol/L Low 24.0 - 28.0 mmol/L [facility] HCO3 (Bld) [Moles/Vol] 16.5 mmol/L Low 23.0 - 27.0 mmol/L [facility] Oxygen (BldV) [Partial pressure] 35.3 mm[Hg] mm Hg [facility] pH (BldV) 7.363 [pH] 7.330 - 7.430 [facility] CRP [Mass/Vol] 136.4 mg/L High NINF - 5.0 mg/L [facility] Lactate [Moles/Vol] 1.7 mmol/L 0.5 - 2. 2 mmol/L [facility] Laboratory - Hematology and Cell countson 11-24-2024 Hemoglobin (Bld) [Mass/Vol] 8.8 g/dL Screen only [facility] Laboratory - Hematology and Cell countsOrdered By: Anna Torres on 11-24-2024 ESR (Bld) [Velocity] 45 mm/h High [facility] No Panel InformationOrdered By: Luana Israel on 11-24-2024 P Altheimer 0 degrees [facility] Work Phone: CO Interval 199 ms [facility] Work Phone: QRS Al[place]imer -17 degrees [facility] Work Phone: QRSD Interval 113 ms [facility] [employer] Work Phone: QT Interval 487 ms [facility] Work Phone: QTC Interval 497 ms [facility] Work Phone: T Wave [place] 107 degrees [facility] Work Phone: [facility] Work Phone: No Panel Informationon 11-24 CV EPIPHANY [facility] 2h Troponin HS (Serial 2nd Troponin) 3 ng/L NINF - 14 ng/L [facility] Interpretation and review of laboratory results Normal [facility] Interpretation and review of laboratory results Abnormal [facility] Source Of Oxygen None (Room Air) [facility] Interpretation and review of laboratory results Normal [facility] Troponin HS Serial Baseline 3 ng/L NINF - 14 ng/L [facility] Interpretation and review of laboratory results Abnormal [facility] Interpretation and review of laboratory results Normal [facility] SEDIMENTATION RATE, AUTOMATE Don 11-24-2024 SEDIMENTATION RATE, ERYTHROCYTE 45 mm/hr High 0-20 [facility] Comment on above: Performed By: #### L [id number], [id number] ####Systems Mgr: JESSY OWENS ([id number])[address] URINE CULTUREon 11-24-2024 Bacteria identified Cx Nom (U) Normal [facility] Comment on above: Performed By: #### L [id number], [id number] ####Systems Mgr: JESSY OWENS ([id number])[facility])[address] [place] [address] Urinalysis complete panel (U )on 11-24-2024 Bacteria LM.HPF (Urine sed) [#/Area] Few Abnormal Negative /HPF [facility] Bilirubin Ql (U) Negative Negative mg/dL [facility] Clarity (U) Turbid Abnormal Clear [facility] Color (U) Yellow Lt. Yellow [facility] Epithelial cells.squamous LM.HPF (Urine sed) [#/Area[facility]) Normal Normal (<70) mg/dL [facility] Hemoglobin Ql (U) 1.0 mg/dL Abnormal Negative [facility] ealth Hyaline casts Auto (Urine sed) [#/Area] Negative Negative /LPF [facility] Interpretation and review of laboratory results Abnormal [facility] Ketones (U) [Mass/Vol] Negative Negat go mg/dL [facility] Leukocyte esterase Test strip Ql (U) 500 Abnormal Negative William/uL [facility] Mucus LM.HPF (Urine sed) [#/Area] Few Negative /LPF [facility] Nitrite Ql (U) Negative Negative [facility] pH (U) 5.5 [pH] 5.0 - 8.0 pH [facility] Protein (U) [Mass/Vol] 50 mg/dL Abnormal Negative [facility] RBC LM.HPF (Urine sed) [#/Area] 3-5 Abnormal [facility] Specific gravity (U) [Rel density] 1.013 1.005 - 1.030 [facility] Urobilinogen (U) [Mass/Vol] 3 mg/dL Abnormal Normal (0-1) [facility] WBC LM.HPF (Urine sed) [#/Area] 51-100 Abnormal [facility] Vital signsOrdered By: Luana Israel on 11-24-2024 Heart rate 62 /min bpm [facility] Work Phone: Vital signson 11-24-2024 Oxygen saturation in Venous blood 56.4 % [facility] XR Tibia and Fibula - left 2 Viewson 11-24-2024 [facility] Radiology Study observation (narrative) [facility] XR Tibia and Fibula - left 2 ViewsOrdered By: Joe Delgadillo on 11-24-2024 [facility] 36on 10-02-2024 36 Normal [facility] XR KNEE BILATERAL STANDINGOr dered By: Dieudonne Walton on 01-30-2021 Patient Name: MAXWELL COLLIER Diagnostic Radiology ACCESSION EXAM DATE/TIME PROCEDURE ORDERING PROVIDER [id number] 01/30/2021 13:26 EDT CR Knee Standing AP MD HINA, DIEUDONNE Ron Bilateral CPT code 44057 Reason For Exam (CR Knee Standing AP [...] Phone: [facility] Incoming Radiology Results From [facility] - 01/30/2021 2:39 PM EDT [facility]: [id number]iology ACCESSION EXAM DATE/TIME PROCEDURE ORDERING PROVIDER [id number] 01/30/2021 13:26 EDT CR Knee Standing AP MD HINA, DIEUDONNE Ron Bilateral CPT code 06089 Reason For Exam (CR Knee Standing AP [...] and Time: 01/30/2021 2:39 [facility] Work Phone: [facility] Work Phone: XR KNEE RIGHT (1-2 VIEWS)Ord ered By: Dieudonne Walton on 01-30-2021 Patient Name: MAXWELL COLLIER Diagnostic Radiology ACCESSION EXAM DATE/TIME PROCEDURE ORDERING PROVIDER [id number] 01/30/2021 13:26 EDT CR Knee 1 or 2 Views MD HINA, DIEUDONNE Ron Right CPT code 35607 Reason For Exam (CR Knee 1 or [...] Phone: [facility] Incoming Radiology Results From [facility] - 01/30/2021 2:39 PM EDT Patient [facility]: [id number] Diagnostic Radiology ACCESSION EXAM DATE/TIME PROCEDURE ORDERING PROVIDER [id number] 01/30/2021 13:26 EDT CR Knee 1 or 2 Views MD HINA, DIEUDONNE Ariadne Right CPT code 71767 Reason For Exam (CR Knee 1 or [...] R Transcribed Date and Time: 01/30/2021 2:39 [facility] Work Phone: [facility] Work Phone: Basic Metabolic Panelon 05-1 Calcium 10.1 mg/dL Normal 8.4-10.2 [facility] Comment on above: Performed By: #### H MIRNA BMP3 ####[facility]burgOkCopay[address] [place] [address] Glucose mass conc 214 mg/dL High 70-100 [facility] Comment on above: Performed By: #### H MIRNA BMP3 ####[facility] [address] [place] [address] Anion gap 13 Normal [facility] Comment on above: Performed By: #### H MIRNA BMP3 ####[facility]burgGoCoin5 [place], [place] CO2 25 mmol/L Normal 22-30 [facility] Comment on above: Performed By: #### H MIRNA BMP3 ####[address] [place], [place] Creatinine 0.66 mg/dL Normal 0.52-1.25 [facility] Comment on above: Performed By: #### H MIRNA BMP3 ####[address] [place], [place] eGFR (black) mL/min/{1.73_m2} Normal >60 [facility] Comment on above: Performed By: #### H MIRNA BMP3 ####[address] [place], [place] eGFR (non-black) mL/min/{1.73_m2} Normal >60 [facility] Comment on above: Result Comment: Sour ce- MDRD equation with creatinine calibration to IDMS(NKDEP) eGFR not recommended for drug dose adjustment Performed By: #### H MIRNA BMP3 ####[address] [address] [place], [place] Urea nitrogen 12 mg/dL Normal 7-20 [facility] Comment on above: Performed By: #### H MIRNA BMP3 ####[address] [place], [place] Chloride 103 mmol/L Normal 98-107 [facility] Comment on above: Performed By: #### H MIRNA BMP3 ####[address] [place], [place] Potassium molar conc 4.0 mmol/L Normal 3.5-5.1 [facility] Comment on above: Performed By: #### H MIRNA BMP3 ####[address] [place], [place] Sodium 141 mmol/L Normal 137-145 [facility] Comment on above: Performed By: #### H MIRNA BMP3 ####[address] [place], [place] Hemogram w/ Autodiffon 12-02 Abs Baso Cnt 0.0 10*3/uL Normal 0.0-0.2 [facility] Comment on above: Performed By: #### H MIRNA BMP3 ####[address] [address] Basophils/100 WBC Auto (Bld) 0.1 % Normal 0.0-2.0 [facility] Comment on above: Performed By: #### H MIRNA BMP3 ####[address] [address] Eosinophils 0.0 10*3/uL Normal 0.0-0.5 [facility] Comment on above: Performed By: #### H MIRNA BMP3 ####[address] [address] Eosinophils/100 leukocytes 0.1 % Low 1.0-6.0 [facility] Comment on above: Performed By: #### H MIRNA BMP3 ####[address] [address] Erythrocyte distribution width Auto Ratio (RBC) 13.7 % Normal 11.5-14.5 [facility] Comment on above: Performed By: #### Yumiko BRADLEY BMP3 ####[address] [address] Erythrocytes (RBC) 4.52 10*6/uL Normal 3.80-5.20 [facility] Comment on above: Performed By: #### Yumiko BRADLEY BMP3 ####[address] [address] Granulocytes/100 WBC (Bld) 93.2 % High 40.0-80.0 [facility] Comment on above: Performed By: #### H MIRNA BMP3 ####[address] [address] Hematocrit (HCT) 44.9 % Normal 35.0-47.0 [facility] Comment on above: Performed By: #### Yumiko BRADLEY BMP3 ####[address] Hemoglobin mass conc (Bld) 15.6 g/dL Normal 11.7-16.0 [facility] Comment on above: Performed By: #### H MIRNA BMP3 ####[address] Lymphocytes 0.6 10*3/uL Low 1.0-4.3 [facility] Comment on above: Performed By: #### H MIRNA BMP3 ####[address] Lymphocytes/100 leukocytes 6.2 % Low 20.0-40.0 [facility] Comment on above: Performed By: #### H MIRNA BMP3 ####[address] MCH 34.5 pg High 26.0-34.0 [facility] Comment on above: Performed By: #### H MIRNA BMP3 ####[address] MCHC mass conc (RBC) 34.8 % Normal 32.0-36.0 [facility] Comment on above: Performed By: #### H MIRNA BMP3 ####[address] MCV 99.3 fL High 79.0-98.0 [facility] Comment on above: Performed By: #### H MIRNA BMP3 ####[address] Monocytes 0.0 10*3/uL Normal 0.0-0.8 [facility] Comment on above: Performed By: #### H MIRNA BMP3 ####[address] Monocytes/100 leukocytes 0.4 % Low 2.0-10.0 [facility] Comment on above: Performed By: #### H MIRNA BMP3 ####[address] Neutrophils 8.5 10*3/uL High 1.8-7.0 [facility] Comment on above: Performed By: #### H EMDF, BMP3 ####[facility] [address] [place] [address] Platelet mean volume (PMV) 8.3 fL Normal 7.4-10.4 [facility] Comment on above: Performed By: #### H EMDF, BMP3 ####[facility] [address] [place], [place] Platelets 186 10*3/uL Normal 140-440 [facility] Comment on above: Performed By: #### H EMDF, BMP3 ####[facility] [address] [place], [place] WBC (Leukocytes) 9.1 10*3/uL Normal 3.6-10.7 [facility] [employer] [facility] Comment on above: Performed By: #### H EMDF, BMP3 ####[facility] [place], [place] CNCOon 08-24-2017 CNCO Letter Prosper Ann MD[address] [place], [place] [address]Fovde: [phone]: [phone]: 08/24/2017Provider: Reji Lovell,We have received a referral [...] you to please call our office at [phone], option 5 and we willassist you in scheduling your exam.Sincerely,Cullen Ann MD Normal [facility] Vital Signs Date Time Vital Sign Value Performing Clinician Jaquan melendez 12-03-2024 08:07-0400 Body temperature 97.3 [degF] Joe Schulte MD Work Phone: [facility] 12-03-2024 08:07-0400 Diastolic blood pressure 79 mm[Hg] Joe Schulte MD Work Phone: [facility] 12-03-2024 08:07-0400 Heart rate 84 /min Joe Schulte MD Work Phone: [facility] 12-03-2024 08:07-0400 Respiratory rate 16 /min Joe Schulte MD Work Phone: [facility] 12-03-2024 08:07-0400 SaO2% (BldA) [Mass fraction] 98 % Joe Schulte MD Work Phone: [facility] 12-03-2024 08:07-0400 Systolic blood pressure 132 mm[Hg] oJe pugh MD Work Phone: [facility] 12-02-2024 05:49-0400 Body mass index (BMI) [Ratio] 46.45 kg/m2 Joe Schulte MD Work Phone: [facility] 12-02-2024 05:49-0400 Body weight 130.54 kg Joe Schulte MD Work Phone: [facility] 11-29-2024 10:03-0400 Body height 167.6 cm Joe Schulte MD Work Phone: [facility] 11-25-2024 17:02-0400 SaO2% (BldA) [Mass fraction] 97.2 % Joe Schulte MD Work Phone: [facility] 10-16-2022 13:04-0400 Body height 167.6 cm Shyam Kirkland MD Work Phone: [facility] 10-16-2022 13:04-0400 Body mass index (BMI) [Ratio] 46.16 kg/m2 Shyam Kirkland MD Work Phone: [facility] 10-16-2022 13:04-0400 Body weight 129.73 kg Shyam Kirkland MD Work Phone: [facility] Encounters Encounter Date Encounter Type Care Provider Facility Start: 03-13-2025 ambulatory Abraham PRECIADO Facil ity:[facility] Start: 02-27-2025 ambulatory Juan R PRECIADO Faci lity:[facility] Start: 01-23-2025 End: 01-23-2025 ambulatory Juan R PRECIADO -[facility] [address] Start: 01-23-2025 End: 01-23-2025 Departed Referred Juan R Lee -[facility] [address] Start: 01-23-2025 End: 01-23-2025 ambulatory Juan R PRECIADO Facility:[facility] Start: 12-19-2024 End: 12-19-2024 ambulatory Juan R PRECIADO -[facility] [address] Start: 12-19-2024 End: 12-19-2024 Departed Referred Abraham Abbott -[facility] - [address] Start: 12-19-2024 Registered Referred Abraham he [facility] - [address] Start: 12-19-2024 End: 12-19-2024 ambulatory Abraham PRECIADO Facility:[facility] Start: 12-07-2024 ambulatory Juan R PRECIADO Faci lity:[facility] Start: 12-07-2024 Registered Referred Juan R Lee - [facility] [address] Start: 12-05-2024 ambulatory Juan R PRECIADO Faci lity:[facility] Start: 12-05-2024 Registered Referred Juan R Lee - [facility] [address] Start: 11-24-2024 End: 12-03-2024 Evaluation and management of inpatient Joe Schulte MD Work Phone: [facility] Start: 10-02-2024 End: 10-02-2024 ambulatory Gabby Arvizu RN [facility] Start: 10-02-2024 End: 10-02-2024 Patient encounter procedure Gabby Arvizu RN [facility] Start: 10-28-2022 ambulatory Juan Ferguson adolph CURRY Work Phone: [facility] Start: 10-27-2022 Telephone encounter Shyam ballesteros MD Work Phone: [facility] Comment on above: Surgery Scheduling ( RTKA 11/17) Start: 10-16-2022 End: 10-16-2022 Office outpatient new 45 minutes Shyam Kirkland MD Work Phone: [facility] Comment on above: Primary osteoarthrit is of right knee Start: 04-23-2022 ambulatory Aishwarya Rooney [facility] Start: 10-09-2021 ambulatory Aishwarya Rooney [facility] Start: 01-30-2021 End: 01-30-2021 Subsequent hospital visit by physician Dieudonne Walton MD Work Phone: [facility] Start: 12-02-2017 Ambulatory UNKNOWN PROVIDER [facility] Procedures Date Procedure Procedure Detail Performing Clinician Start: 01-23-2025 Urine culture Juan R lemons OLS Start: 01-23-2025 Urnls dip stick/tabl et reagent auto microscopy Juan R Lee OLS Start: 12-19-2024 Clostridium difficil e detection Juan R Lee OLS Start: 12-03-2024 Glucose quantitative blood xcpt reagent strip Justo Tejada DO Work Phone: Start: 12-03-2024 Glucose quantitative blood xcpt reagent strip Justo Tejada DO Work Phone: Start: 12-03-2024 Calcium ionized Olive Courtneyter RESIDENT PHYSICIAN - CLAIM EXAMINER Work Phone: Start: 12-03-2024 Basic metabolic pane l calcium total Justo Tejada DO Work Phone: Start: 12-02-2024 Glucose quantitative blood xcpt reagent strip Justo Tejada DO Work Phone: Start: 12-02-2024 Glucose quantitative blood xcpt reagent strip Justo Tejada DO Work Phone: Start: 12-02-2024 Glucose quantitative blood xcpt reagent strip Justo Tejada DO Work Phone: Start: 12-02-2024 Glucose quantitative blood xcpt reagent strip Justo Tejada DO Work Phone: Start: 12-02-2024 Calcium ionized Olive Berrodin-Marsha RESIDENT PHYSICIAN - CLAIM EXAMINER Work Phone: Start: 12-01-2024 End: 12-01-2024 Basic [...] End: 12-01-2024 Calcium ionized Olive Berrodin-Pin ter RESIDENT PHYSICIAN - CLAIM EXAMINER Work Phone: Start: 11-30-2024 Basic metabolic pane l calcium total Ac Reyes MD Work Phone: Start: 11-30-2024 Basic metabolic pane l calcium total Ac Reyes MD Work Phone: Start: 11-30-2024 Basic metabolic pane l calcium total Sonia Santos RESIDENT PHYSICIAN - CLAIM EXAMINER Work Phone: Start: 11-30-2024 Manual Differential panel - Blood Maxwell Devi DO Work Phone: Start: 11-29-2024 Basic metabolic pane l calcium total Sonia Santos RESIDENT PHYSICIAN - CLAIM EXAMINER Work Phone: Start: 11-29-2024 Basic metabolic pane l calcium total Sonia Marin Bica RESIDENT PHYSICIAN - CLAIM EXAMINER Work Phone: Start: 11-29-2024 Manual Differential panel - Blood Maxwell Devi DO Work Phone: Start: 11-28-2024 Basic metabolic pane l calcium total Sonia Marin Bica RESIDENT PHYSICIAN - CLAIM EXAMINER Work Phone: Start: 11-28-2024 Basic metabolic pane l calcium total Sonia Marin Bica RESIDENT PHYSICIAN - CLAIM EXAMINER Work Phone: Start: 11-28-2024 Lactate dehydrogenase ldh Olive Luis Mjuana-Marsha RESIDENT PHYSICIAN - CLAIM EXAMINER Work Phone: Start: 11-28-2024 Bacteria identified in Blood by Culture Sonia Marin Bica RESIDENT PHYSICIAN - CLAIM EXAMINER Work Phone: Start: 11-28-2024 Basic metabolic pane l calcium total Sonia Marin Bicsara RESIDENT PHYSICIAN - CLAIM EXAMINER Work Phone: Start: 11-28-2024 Drug screen quantita tive vancomycin Maxwell Devi DO Work Phone: Start: 11-28-2024 Manual Differential panel - Blood Maxwell Devi DO Work Phone: Start: 11-27-2024 Basic metabolic pane l calcium total Sonia Marin Bicsara RESIDENT PHYSICIAN - CLAIM EXAMINER Work Phone: Start: 11-27-2024 Blood count hematocrit Sonia Marin Bicsara RESIDENT PHYSICIAN - CLAIM EXAMINER Work Phone: Start: 11-27-2024 Compatibility each u nit electronic Sonia Marin Bica RESIDENT PHYSICIAN - CLAIM EXAMINER Work Phone: Start: 11-27-2024 End: 11-27-2024 TRANSFUSE RED BLOOD CELLS Sonia Marin Bi ca RESIDENT PHYSICIAN - CLAIM EXAMINER Work Phone: Start: 11-27-2024 Basic metabolic pane l calcium total Sonia Pachecoa RESIDENT PHYSICIAN - CLAIM EXAMINER Work Phone: Start: 11-27-2024 Antibody screen [facility] Comment on above: Performed By: #### L [id number] ####Systems Mgr: JESSY OWENS ([id number])[facility] ([facility])[address] [place] [address] Start: 11-27-2024 Blood typing serologic abo Sonia Marin Bica RESIDENT PHYSICIAN - CLAIM EXAMINER Work Phone: Start: 11-27-2024 Comprehensive metabo lic panel Sonia Pachecoa RESIDENT PHYSICIAN - CLAIM EXAMINER Work Phone: Start: 11-27-2024 Manual Differential panel - Blood Maxwell Devi DO Work Phone: Start: 11-26-2024 End: 11-26-2024 Basic metabolic panel calcium total Sonia Pachecoa RESIDENT PHYSICIAN - CLAIM EXAMINER Work Phone: Start: 11-26-2024 Drug screen quantita tive vancomycin Maxwellsara Devi DO Work Phone: Start: 11-26-2024 Ecg routine ecg w/le ast 12 lds trcg only w/o i&r Miah Raines MD Work Phone: Start: 11-26-2024 Comprehensive metabo lic panel Miah Raines MD Work Phone: Start: 11-25-2024 Basic metabolic pane l calcium total Sonia Marin Bica RESIDENT PHYSICIAN - CLAIM EXAMINER Work Phone: Start: 11-25-2024 Insj non-tunneled ce ntral venous cath age 7 yr/> Sonia Pachecoa RESIDENT PHYSICIAN - CLAIM EXAMINER Work Phone: Start: 11-25-2024 Basic metabolic pane l calcium total Sonia Marin Bica RESIDENT PHYSICIAN - CLAIM EXAMINER Work Phone: Start: 11-25-2024 Ecg routine ecg w/le ast 12 lds trcg only w/o i&r Sonia Santos APRN - CLAIM EXAMINER Work Phone: Start: 11-25-2024 Blood gases any combination ph pco2 po2 co2 hco3 Sonia Santos APRN - CLAIM EXAMINER Work Phone: Start: 11-25-2024 Radiologic exam ches t single view Sonia Santos RESIDENT PHYSICIAN - CLAIM EXAMINER Work Phone: Start: 11-25-2024 Artl cathj/cannulj mntr/transfusion spx prq Sonia Santos RESIDENT PHYSICIAN - CLAIM EXAMINER Work Phone: Start: 11-25-2024 Basic metabolic pane l calcium total Sonia Santos RESIDENT PHYSICIAN Violet CLAIM EXAMINER Work Phone: Start: 11-25-2024 Dup-scan xtr veins complete bilateral study Sonia Santos RESIDENT PHYSICIAN Violet CLAIM EXAMINER Work Phone: Start: 11-25-2024 TTE w or [...] Phone: Start: 11-24-2024 Creatine kinase total A jvbigg Devi DO Work Phone: Start: 11-24-2024 Radiologic examinati on tibia & fibula 2 views David Martin DO Work Phone: Start: 11-24-2024 AEROBIC AND ANAEROBI C CULTURE WITH STAIN David S Salh DO Work Phone: Start: 11-24-2024 Culture bacterial an y source anaerobic iso&id David S Salh DO Work Phone: Start: 11-24-2024 Bacteria identified in Blood by Culture David Martin DO Work Phone: Start: 11-24-2024 C-reactive protein Mary Ann Martin DO Work Phone: Start: 11-24-2024 Comprehensive metabo lic panel David Martin DO Work Phone: Start: 11-24-2024 HC CUL TYP ID BLD PT HGN 6+ TRGT David Martin DO Work Phone: Start: 11-24-2024 Ecg routine ecg w/le ast 12 lds trcg only w/o i&r David Martin DO Work Phone: Start: 01-30-2021 Radiologic examinati on knee 1/2 views Dieudonne Walton MD Work Phone: Plan of Treatment Date Care Activity Detail Author Start: 2037 RSV Immunization for Adults (1 - 1-dose 75+ series) RSV Immunization for Adults (1 - 1-dose 75+ series) [facility] Start: 12-03-2025 [facility] Start: 11-24-2025 Hemoglobin A1c measurement [facility] Start: 11-03-2025 Diabetes mellitus screening Diabetes Screening [facility] Start: 05-31-2025 [facility] Start: 03-20-2025 [facility] Start: 03-20-2024 COVID-19 Vaccine ( season) COVID-19 Vaccine ( season) [facility] Start: 03-20-2024 Influenza vaccination Influenza Vacc ine (#1) [facility] Start: 03-20-2024 [facility] Start: 01-31-2024 [facility] Start: 03-20-2023 Influenza vaccination Influenz a Vaccine (Season Ended) [facility] Start: 11-17-2022 End: 11-17-2022 Admission to same day surgery center 11/17/2022 Surgery Procedural Shyam Kirkland MD [address], [address] [place] [address] RIGHT TOTAL KNEE ARHTROPLASTY [67056 (CPT )] [facility] MAIN OR Comment on above: RIGHT TOTAL KNEE ARH TROPLASTY [11986 (CPT )] Start: 11-17-2022 End: 11-17-2022 Arthrp kne condyle&platu medial&lat compartments TOTAL KNEE REPLACEMENT Unilateral primary osteoarthritis, right knee 11/17/2022 8:30 AM EDT [facility] Operating Room Start: 11-17-2022 End: 11-17-2022 Cptr-asst surgical navigation image-less COMPUTER-ASSISTED SURGICAL NAVIGATIONAL PROCEDURE FOR MUSCULOSKELETAL PROCEDURES IMAGE-LESS Unilateral primary osteoarthritis, right knee 11/17/2022 8:30 AM EDT [facility] Operating Room Start: 11-17-2022 Subsequent hospital visit by physician 11/17/2022 Hospital Encounter Procedural Shyam Kirkland MD [address], [address] [place] [address] [facility] Start: 11-03-2022 End: 11-03-2022 Anesthesia consultation 11/03/2022 Anesthesia Event Procedural Magaly Jones PA [address] [place], [place] [id number] [facility] Start: 11-03-2022 End: 11-03-2022 Admission to establishment 11/03/2022 Pre-Admission Testing Pre-Admission Testing Shyam Kirkland MD [address], [address] [place] [address] [facility] Pre-Admit Testing Start: 2022 [facility] Start: 03-20-2022 Influenza vaccination Influenza Vacc ine (#1) [facility] Start: 03-20-2021 Influenza vaccination Flu vaccine (# 1) [facility] Work Phone: Start: 03-15-2021 COVID-19 Vaccine (2 - Moderna series) COVID-19 Vaccine (2 - Moderna series) [facility] Start: 12-02-2018 Creatinine measurement Creatinine mo nitoring [facility] Work Phone: Start: 12-02-2018 Potassium monitoring Potassium monit oring [facility] Work Phone: Start: 2012 Pneumococcal Vaccine : 50+ Years (1 of 1 - PCV) Pneumococcal Vaccine: 50+ Years (1 of 1 - PCV) [facility] Start: 2012 Screening for malign ant neoplasm of breast Breast cancer screen [facility] Work Phone: Start: 2012 Shingles Vaccine (1 of 2) Shingles Vaccine (1 of 2) [facility] Work Phone: Start: 2012 Zoster Vaccines (1 o f 2) Zoster Vaccines (1 of 2) [facility] Start: 2012 [facility] Start: 2007 Screening for malign ant neoplasm of colon Colon cancer [facility] Work Phone: Start: 2002 Diabetes screen Diabetes screen [facility] Work Phone: Start: 2002 Lipid panel Lipid screen [facility] Work Phone: Start: 2002 Screening for malign ant neoplasm of breast [facility] Start: 1992 Screening for malign ant neoplasm of cervix [facility] Start: 1983 Screening for malign ant neoplasm of cervix [facility] Start: 1981 DTaP/Tdap/Td vaccine (1 - Tdap) DTaP/Tdap/Td vaccine (1 - Tdap) [facility] Work Phone: Start: 1981 DTaP/Tdap/Td Vaccine s (1 - Tdap) DTaP/Tdap/Td Vaccines (1 - Tdap) [facility] Start: 1980 Hepatitis C screening [facility] Start: 1980 [facility] Start: 1977 HIV screening HIV screen [facility] Work Phone: Start: 1974 COVID-19 Vaccine (1) COVID-19 Vaccin e (1) [facility] Work Phone: Start: 1974 Depression Screening Depression Scre ening [facility] Start: 1972 Diabetic foot examination [facility] Start: 1972 Glaucoma screening [facility] Start: 1972 Preventive dental service [facility] Start: 1963 MMR Vaccines (1 of 1 - Standard series) MMR Vaccines (1 of 1 - Standard series) [facility] Start: 1963 [facility] Start: 1962 Hepatitis B Vaccines (1 of 3 - 3-dose series) Hepatitis B Vaccines (1 of 3 - 3-dose series) [facility] Start: 1962 Hepatitis C screening Hepatitis C sc reen [facility] Work Phone: Start: 1962 HIV screening [facility] Start: 1962 Lipid panel [facility] Start: 1962 Screening for malign ant neoplasm of colon [facility] End: 11-25-2024 Peripheral blood smear [facility] [employer] Work Phone: End: 11-25-2024 Peripheral Blood Smear [facility] Peripheral blood smear [facility] Peripheral Blood Smear [facility] Payers Date Payer Category Payer Self-pay 2021 Commercial Managed C are - HMO [id number] 2021 Unknown 2021 Unknown [id number] 2021 Unknown ALLIED BENEFIT S [facility] ALLIED BENEFIT SYSTEM [id number] 2021-Present [address] [place] [address] [id number] 1962 Unknown [id number] 1962 Unknown [id number] 70 Unknown [id number] 62 Unknown [id number] 64 Unknown [id number] 64 Unknown [id number] 64 Social History Date Type Detail Facility Start: 01-30-2021 Tobacco smoking status NHIS Former smoker [employer] Work Phone: Start: 01-30-2021 Tobacco use and exposure Former user [employer] Start: 01-30-2021 End: 11-26-2024 Alcohol intake Current drinker of alcohol (finding) [employer] Phone: Start: 12-02-2017 Tobacco Comment quit 10 years ago [employer] Phone: Start: 03-25-2017 Alcohol Comment occassional [employer] Phone: Start: 1960 Sex Assigned At Not on file [employer] Phone: History of tobacco use Current smoker [facility] Start: 06-25-2022 History SDOH Alcohol Frequency 5 [facility] [employer] Start: 06-25-2022 Alcohol Comment daily [facility] Start: 10-06-2022 End: 11-03-2022 Exposure to SARS-CoV-2 (event) Not sure [facility] Start: 06-25-2022 End: 12-03-2024 History of Social function [facility] Start: 06-25-2022 End: 12-03-2024 Alcohol Use Disorder Identification Test - Consumption [AUDIT-C] [facility] How often to you hav e a drink containing alcohol? 4 or more times a week [facility] Average Number of Drinks Not on file [facility] Start: 11-03-2022 Alcohol Comment week ends [facility] Start: 02-17-2022 Sex Female (finding) [facility] Has the [employer]vonics, or Scirra threatened to shut off services in your home in past 12Mo No [facility] How often to you hav e a drink containing alcohol? 2-3 time sa week [facility] How many standard dr inks containing alcohol do you have on a typical day? 3 or 4 [facility] How often do you hav e 6 or more drinks on 1 occasion? Never [facility] (I/We) worried wheth er (my/our) food would run out before (I/we) got money to buy more. Never true [facility] Tobacco smoking stat us [facility] Unknown if ever smoked [facility] Work Phone: Start: 1960 Sex Assigned At Female [facility] Functional Status Date Assessment Result Facility 11-24-2024 Total score [AUDIT-C] [facility] Clinical Notes 10-16-2022 to 12-03-2024 Justo Tejada, [...] obesity, HOGAN, and osteoarthritis. She presented to [facility] ED on 11/24/24 with complaints of increased [...] 11/27. Pt stable and transferred to the [facility] 11/30 under the hospitalist service. Pt/OT [...] admission, onward) Start Ordered 11/29/24 0954 Supplement:Lunch; [place] Until discontinued Question Answer Comment Frequency Lunch Select supplement: [place] Comment Please mix for pt in diet sprite. 11/29/24 0954 11/24/24 221 Adult diet Regular Diet effective now Question: Diet type Answer: Regular 11/24/24 221 Activity: as tolerated Recommended Outpatient Tests: Disposition: [...] tablet Recommended Follow-up: [facility] Wound Ostomy [address] [facility] [address] Priscilla Llanes MD [address] [facility] [address] Complexity of Follow up: [] Moderate Complexity: follow up within 7-14 calendar days (98335) [x] Severe Complexity: follow up within 7 calendar days (29958) Follow up Testing, Pending results or Referrals [...] (HCC) left leg documented in this encounter [facility] 12-03-2024 Note [facility] 12-03-2024 Nurse Note Pt discharged at this time. All belongings were collected and sent with patient. [facility] without issue. Report also called to long-term ([facility]) with all questions answered. Patient has all home medications in bag for discharged. Nothing remains in med cabinet. MELBA completed at this time. Attempted to call report. Was told that nurse is busy. Awaiting call back. Wound care to bilateral buttocks preformed at this time. Pt tolerated well. documented in this encounter [facility] 12-03-2024 Miscellaneous Notes Patient Choice Patient Name: MAXWLEL COLLIER Date of : 1960 All Providers Sent [facility] Phone: [phone] Address: [address] [place] [address] Name: [facility] Phone: [phone] Address: [address] [place], [place] [id number] Name: [facility] Phone: [phone] Address: [address] [id number] Name: [facility] Phone: [phone] Address: [address] [place] [address] Name: [facility] Phone: [phone] Address: [address] [facility] [address] [place] [address] Care Management Progress Note 12/03/24 0950 Rapid Rounds Attendance Bullet Assembly Press Operator Planned Discharge Disposition SNF: [facility] [phone] Chat msg from unit RN, Ariel Mcgarry Stating they rec'd call from SNF that authorization was obtained. Checked Care port and found msg from Fadia Owusu from [facility] stating had left msg re: auth and asked if the plan is to dc today. Msg to [facility] DO; informed of auth to SNF and if medically ready for dc. He responded after seeing patient, DC order entered, MELBA completed. Transport in will call; edited time to 12 noon. Chat msg to RN; Ariel Marin who agreed to notify patient and spouse of DC time. Msg to [facility] via Care port of time of transport [...] improved Outcome: Not Progressing 7000 completed in [facility] per T[facility] request. [facility] requested in Roundtrip in will call to [facility] per TCC. Care Management Progress Note [facility] and neal not able to accept d/t pt's specific insurance plan. [facility] able to accept- pt/ prefer facility in [place] as it is close to their home. Facility to submit for auth. Spoke with Justin- agreeable to plan. MELBA complete and NET WPF DEVELOPER placed pt in round trip under will call for possible late/weekend discharge. Facility updated and provided with 4N phone number for late/weekend discharge. Length of Stay (Days): 8 GMLOS: 4.9 Referral placed to SNF 1. [facility] 2. [facility] 3. [facility] 4. [facility]. [facility]. Await review and [...] obtained [facility] as first choice, then [facility], [facility] and [facility]. Will have [facility] send referrals . Length of Stay (Days): [...] Not Progressing 11/30/24 1445 Rapid Rounds Attendance Bullet Assembly Press Operator Planned Discharge Disposition SNF Today we still await Administering IV medications;Clinical stability;Seismometer Operator recommendations (comment);Symptomatic control;Post-discharge arrangement completion (comment);Patient/caregiver facility [...] convert to PO if able) None Anticipated Likely Medications (ICU initiated) or Dose Changes and [...] recommends SNF. Patient agreeable. List generated via [facility] and given to patient for her to [...] Outcome: Progressing 11/28/24 1143 Rapid Rounds Attendance Bullet Assembly Press Operator Planned Discharge Disposition (TBD; home with PHYSICIAN CODING SPECIALIST) Today we still await Administering IV medications;Clinical stability;Seismometer Operator recommendations (comment);Symptomatic control;Post-discharge arrangement completion (comment) Patient [...] Not Progressing 11/25/24 1110 Rapid Rounds Attendance Bullet Assembly Press Operator Planned Discharge Disposition (TBD) Today we still await Administering IV medications;Clinical stability;Seismometer Operator recommendations (comment);Diagnostic workup;Symptomatic control;Post-discharge arrangement completion (comment) [...] Outcome: Not Progressing documented in this encounter [facility] 12-02-2024 History of Present illness Narrative Images from the original note were not included. Hospitalist Progress Note 12/02/2024 Subjective: Admit Date: 11/24/2024 PCP: Priscilla Llanes MD Room#: N4450/N4-550 A BRIEF HOSPITAL COURSE: This is a 64 y/o female with a PMHX of HTN, peripheral venous insuffiencey, DVT on xarelto, obesity, HOGAN, and osteoarthritis. She presented to [facility] on 11/24/24 with complaints of increased [...] 11/27. Pt stable and transferred to the [facility] 11/30 under the hospitalist service. Pt/OT [...] PLT 61* 60* 70* BMP: Recent Labs 11/30/24 2033 12/01/24 1330 12/01/24 204 NA 143 140 140 K 2.3* 2.9* 3.4* CL 108* 108* 108* CO2 24 25 25 BUN 12 11 14 CREATININE 0.63 0.53* [...] Emergency Contact: Justin Collier Mobile Relation: Spouse Birthing Nurse needed? No Justo Tejada DO Division of Hospitalist Medicine [employer] [1] Past Medical History: Diagnosis Date Blood [...] original note were not included. OCCUPATIONAL THERAPY [facility] Initial Evaluation Name/MRN: Maxwell Collier ([id number]) Evaluation Date: 12/01/2024 Date of : 1960 Admission Date: 11/24/2024 1:30 PM Age: 64 y.o. Room/Bed: [facility]6/[facility] B Discharge Recommendation: Detention Facility Other: DME TBD Assessment IMPRESSION: Pt presents to [facility] with wound of LLE. Pt tolerated OT [...] Needs Assist Receives Help From: Spouse Active Sandblaster Paint Sprayer: No Pt reports increased difficulty with ADLs [...] of Care supervision is transferred to a [facility] Occupational Therapist. Goals and/or treatment plan was established in collaboration with patient/family/other representatives. [1] Past Medical History: Diagnosis Date Blood clot in vein bilateral legs Hypertension Post-thrombotic syndrome Venous ulcer (CMS/HCC) (HCC) left leg [2] Past Surgical History: Procedure Laterality Date EXTREMITY SURGERY lle HYSTERECTOMY SKIN GRAFT Left 2006 Images from the original note were not included. PHYSICAL THERAPY [facility] Treatment Note Name/MRN: Maxwell Collier ([id number]) Date of : 1960 Age: 64 y.o. Room/Bed: N4-446/N4-446 B Discharge Recommendation: Detention Facility Equipment Needed: No Other: tbd Prior [...] Raw Score (No Stairs) : 6 JH-HLM -HLM Score: Bed activity Goals Patient Stated Goal: [...] from the original note were not included. [facility] Department of Psychiatry Nurse Practitioner Note *Please contact [facility] Listed in [employer] On-Call Finder for urgent needs Mon-Fri: From [...] HISTORY OF PRESENT ILLNESS: HPI: In brief, Maxwell Collier is a 64 y.o., female who was hospitalized at [facility] for Wound of left lower extremity, initial [...] QT Interval 485 QTC Interval 507 P Altheimer -16 QRS Altheimer -7 T Wave Altheimer 87 CO Interval 252 Impression Sinus rhythm MOBITZ I [...] Follow up: peripherally as able *Please contact [facility] Listed in [facility] On-Call Finder for urgent needs Mon-Thu: From 1700 - 0800 and Thursday & [...] 650 mg, Oral, q4h PRN, Olive Rico-Marsha, RESIDENT PHYSICIAN - CLAIM EXAMINER buPROPion SR (Wellbutrin SR) 12 hr tablet 100 mg, 100 mg, Oral, BID, Olive Rico-Marsha, RESIDENT PHYSICIAN - CLAIM EXAMINER, 100 mg at 11/30/24 0829 chlorhexidine (Hibiclens) 4 % solution, , Topical, Daily, Olive Rico-Marsha, RESIDENT PHYSICIAN - CLAIM EXAMINER, Given at 11/30/24 0439 collagenase 250 UNIT/GM ointment, , Topical, Daily, Olive Rico-Marsha, RESIDENT PHYSICIAN - CLAIM EXAMINER, Given at 11/30/24 0829 dextrose 5 % infusion, 100 mL/hr, IntraVENous, PRN, Olive Rico-Marsha, RESIDENT PHYSICIAN - CLAIM EXAMINER dextrose 50 % solution 12.5 g, 12.5 g, IntraVENous, PRN, Olive Rico-Marsha, RESIDENT PHYSICIAN - CLAIM EXAMINER [Held by provider] enoxaparin (Lovenox) syringe 40 mg, 40 mg, SubCUTAneous, q24h, Olive Rico-Marsha, RESIDENT PHYSICIAN - CLAIM EXAMINER, 40 mg at 11/27/24 1430 folic acid (Folvite) tablet 1 mg, 1 mg, Oral, Daily, Olive Rico-Marsha, RESIDENT PHYSICIAN - CLAIM EXAMINER, 1 mg at 11/30/24 0829 glucagon (human recombinant) injection 1 mg, 1 mg, IntraMUSCular, PRN, Olive Rico-Marsha, RESIDENT PHYSICIAN - CLAIM EXAMINER glucose oral gel 15 g, 15 g, Oral, PRN, Olive Lane APRN - SHIVAM [START ON 12/01/2024] Hydrocortisone Sod Suc (PF) (Solu-CORTEF) injection 50 mg, 50 mg, IntraVENous, Daily, Olive Lane APRN - SHIVAM magnesium oxide (Mag-Ox) tablet 400 mg, 400 mg, Oral, BID, Olive Rico-Marsha, RESIDENT PHYSICIAN - CLAIM EXAMINER, 400 mg at 11/30/24 0829 miconazole (Micotin) 2 % powder, , Topical, BID, Olive Lane APRN - CLAIM EXAMINER, Given at 11/30/24 0829 naloxone (Narcan) injection 0.4 mg, 0.4 mg, IntraVENous, q5 min PRN, Olive Lane APRN - SHIVAM ondansetron ODT (Zofran-ODT) disintegrating tablet 4 mg, 4 mg, Oral, q8h PRN OR ondansetron (Zofran) injection 4 mg, 4 mg, IntraVENous, q6h PRN, Olive Lane APRN - SHIVAM oxyCODONE (Roxicodone) immediate release tablet 5 mg, 5 mg, Oral, q6h PRN, 5 mg at 11/30/24 1035 OR oxyCODONE (Roxicodone) immediate release tablet 10 mg, 10 mg, Oral, q6h PRN, Olive Lane RESIDENT PHYSICIAN - SHIVAM pantoprazole (ProtoNix) EC tablet 40 mg, 40 mg, Oral, Daily, 40 mg at 11/30/24 0829 OR pantoprazole (ProtoNix) 40 mg in sodium chloride (PF) 0.9 % 10 mL injection, 40 mg, IntraVENous, Daily, Olive Rico-LEANN Larson - SHIVAM, 40 mg at 11/29/24 0841 Petrolatum ointment, , Topical, Daily, Olive Lane APRN - CLAIM EXAMINER, Given at 11/30/24 0548 Petrolatum ointment, , Topical, BID, Olive Lane RESIDENT PHYSICIAN - CLAIM EXAMINER, Given at 11/30/24 1507 piperacillin-tazobactam (Zosyn) 4,500 mg in sodium chloride 0.9 % 100 mL IVPB Mini-Bag Plus, 4,500 mg, IntraVENous, q6h, Olive Berrodin-Marsha, RESIDENT PHYSICIAN - CLAIM EXAMINER, Stopped at 11/30/24 1333 polyethylene glycol (PEG) 3350 (Miralax) packet 17 g, 17 g, Oral, Daily PRN, Olive Berrodin-Marsha, RESIDENT PHYSICIAN - CLAIM EXAMINER potassium chloride CR (Klor-Con M10) ER tablet 10 mEq, 10 mEq, Oral, BID, Olive Berrodin-Marsha, RESIDENT PHYSICIAN - CLAIM EXAMINER, 10 mEq at 11/30/24 1104 sodium chloride 0.9% (NS) flush 5-40 mL, 5-40 mL, IntraCATHeter, q8h, Olive Berrodin-Marsha, RESIDENT PHYSICIAN - CLAIM EXAMINER, 10 mL at 11/30/24 0829 sodium chloride 0.9% (NS) flush 5-40 mL, 5-40 mL, IntraVENous, PRN, Olive Berrodin-Marsha, RESIDENT PHYSICIAN - CLAIM EXAMINER stomahesive in petrolatum (ET Mix), , Topical, PRN, Olive Berrodin-Marsha, RESIDENT PHYSICIAN - CLAIM EXAMINER, Given at 11/25/24 0903 stomahesive in petrolatum (ET Mix), , Topical, q8h, Olive Berrodin-Marsha, RESIDENT PHYSICIAN - CLAIM EXAMINER, Given at 11/30/24 0958 [2] Allergies Allergen [...] regimen yesterday (changed from Ensure Max to [place] Jair mixed in diet sprite). Pt states that is enjoying the [place] Jair. She states that she desires to continue with ONS only once per day however. Pt denies having any other questions/concerns for RD after visit yesterday. Will continue to monitor weight changes, labs and overall nutrition status RD will continue to follow up weekly Images from the original note were not included. PHYSICAL THERAPY [facility] Treatment Note Name/MRN: Maxwell Collier ([id number]) Date of : 1960 Age: 64 y.o. Room/Bed: T3-306/T3-306 A Discharge Recommendation: Detention Facility Other: tbd Prior Level of Function [...] HOGAN, OA bilateral knees. Patient presented to [facility] ED on 11/24/2024 from home with C/O weakness and lethargy. Per patient baseline poor mobility 2/2 OA knees which led to her longterm 1 month ago. Patient reports decreased PO [...] Weight 136 kg (299 lb 2.4 oz) (11/30/24 0600) BMI Body mass index is 48.28 kg/m [...] Normal [] Scar/Lesion/Mass Inspection of teeth/lips/gums Dentition: [][place] Teeth []Dentures Lips/Gums: [x]Intact []Lesion Present Mucosa: [x]Snover [x]Moist []Dry Neck: External Appearance Overall Appearance: [...] 15.9* ABGs: No results for input(s): "PHART", "LUC6RFA", "PO2ART", "SDP8BBF", "SO2ART", "M8WJPUEC" in the last 72 hours. Lactic Acid: [...] -regular diet -Supplements with meals -Consult to handle bar assembler -trend labs replete lytes PRN -K replacement [...] Discussed with Dr Carpenter Disposition: Transfer to [facility] Time spent preparing to see the [...] HOGAN, OA bilateral knees. Patient presented to [facility] ED on 11/24/2024 from home with C/O weakness and lethargy. Per patient baseline poor mobility 2/2 OA knees which led to her longterm 1 month ago. Patient reports decreased PO [...] Objective: Last Vitals: BP MAP 117/55 (11/29/24 0900) 73 (11/29/24 09) Arterial BP MAP 128/52 (11/28/24 0400) 78 mmHg (11/28/24 0400) Temp 36.1 C (97 F) (11/29/24 0745) Pulse 65 (11/29/24 09) Resp 16 (11/29/24899) SpO2 100 % (11/29/24899) Weight 133 kg (293 lb 12.8 oz) (11/28/24599) BMI Body mass index is 47.42 kg/m . I/O: 11/28 699 - 11/29 658 In: 1552.6 [I.V.:1552.6] Out: 1790 [Urine:1790] Ventilator: [...] Normal [] Scar/Lesion/Mass Inspection of teeth/lips/gums Dentition: [][place] Teeth []Dentures Lips/Gums: [x]Intact []Lesion Present Mucosa: [x]Snover [x]Moist []Dry Neck: External Appearance Overall Appearance: [...] hours- BMP: Recent Labs 11/28/24 0403 11/28/24 1211 11/28/24 2026 11/29/24 0502 NA 139 139 135* 137 K 3.9 3.5 3.7 3.6 CL 110* 108* 108* 109* CO2 23 23 22* 22* BUN 16 15 14 12 CREATININE 0.58 0.56* 0.57 0.53* CALCIUM 8.5* 8.5* 8.6* 8.4* MG 2.2 1.8 -- 1.7 PHOS 1.4* 1.8* -- 2.1* LFTs: Recent Labs 11/27/24 0540 11/28/24 0403 AST 18 -- ALT 10 -- PROT 5.1* -- ALBUMIN 2.3* -- BILITOT 1.0 1.0 ALKPHOS 82 -- Glucose: Recent Labs 11/26/24 2336 11/27/24 0540 11/27/24 1159 11/27/24200911/28/24 0403 11/28/24 1211 11/28/24202511/29/24 0502 GLUCOSE 188* 168* 151* 150* 137* [...] 16.5* ABGs: No results for input(s): "PHART", "RMB4HLR", "PO2ART", "GYA9VOR", "SO2ART", "Q3PWMMDP" in the last 72 hours. Lactic Acid: [...] pending -Urine + e.coli -Afebrile and SBP [id number] Bradycardia -HR 65-70 overnight -Concerns for REJI [...] -regular diet -Supplements with meals -Consult to handle bar assembler -trend labs replete lytes PRN -K replacement [...] Discussed with Dr Carpenter Disposition: Transfer to [facility] Time spent preparing to see the [...] creatinine, and vancomycin levels interfaced automatically to [employer] and data has been analyzed and interpreted. [...] HOGAN, OA bilateral knees. Patient presented to [facility] ED on 11/24/2024 from home with C/O weakness and lethargy. Per patient baseline poor mobility 2/2 OA knees which led to her longterm 1 month ago. Patient reports decreased PO [...] index is 45.87 kg/m . I/O: 11/27 0700 - 11/28 0659 In: 1207.5 [I.V.:907.5] Out: 1310 [Urine:1310] Ventilator: [...] Normal [] Scar/Lesion/Mass Inspection of teeth/lips/gums Dentition: [][place] Teeth []Dentures Lips/Gums: [x]Intact []Lesion Present Mucosa: [x]Snover [x]Moist []Dry Neck: External Appearance Overall Appearance: [...] 11/26/24 0631 11/26/24 1200 11/27/24 0540 11/27/24 1159 11/27/24200911/28/24 0403 NA 138 < > 140 141 [...] interval not displayed. LFTs: Recent Labs 11/26/24 0631 11/27/24 0540 11/28/24 0403 AST 21 18 -- ALT 9 10 -- PROT 5.7* 5.1* -- ALBUMIN 2.5* 2.3* -- BILITOT 1.3* 1.0 1.0 ALKPHOS 91 82 -- Glucose: Recent Labs 11/26/24 0631 11/26/24 1200 11/26/24 1731 11/26/24 2336 11/27/24 0540 11/27/24 1159 11/27/24 2010 11/28/24 0403 GLUCOSE 165* 180* 180* 188* 168* 151* 150* 137* Procal: Recent Labs 11/27/24 1159 PROCAL 0.12* CBC: Recent Labs 11/26/24 0631 11/27/24 0540 11/27/24 1538 11/28/24 0403 WBC 9.1 8.4 -- 7.3 HGB 8.1* 6.8* 7.3* 7.5* HCT 23.9* 19.6* 21.1* 21.7* PLT 129* 103* -- 69* MCV 101.3* 99.5* -- 99.1* RDW 13.3 13.5 -- 16.4* ABGs: Recent Labs 11/25/24 1653 PHART 7.407 MFD2NDB 25.4* PO2ART 111.8* UQY6BLL 15.6* Q2ZMBAQR None (Room Air) Lactic Acid: No results [...] pending -Urine + e.coli -Afebrile and SBP [id number] Bradycardia -HR 65-70 overnight -Concerns for REJI [...] -regular diet -Supplements with meals -Consult to handle bar assembler -trend labs replete lytes PRN -K replacement [...] other team members and physicians, excluding procedures. [facility] Respiratory Care Department Progress Note Comment [...] creatinine, and vancomycin levels interfaced automatically to [employer] and data has been analyzed and interpreted. [...] OA of bilateral knees, HOGAN presented to [facility] ED on 11/24/24 from home with complaint [...] ENT/Mouth: Inspection of teeth/lips/gums Dentition: []Adequate [x]Poor [][place] Teeth []Dentures Mucosa: []Moist [x]Dry Oral secretions: [...] [x]Yes []No Urine appearance: [x]Yellow []Janice []Tea-colored []Snover-tinged []Filiberto hematuria [] Sediment []Clots Musculoskeletal: Extremities [...] 56 (11/27/24 0700) Resp (!) 11 (11/27/24 07) SpO2 100 % (11/27/24699) Weight 129 kg (284 lb 3.2 oz) (11/27/24599) BMI Body mass index is 45.87 kg/m . [facility] within last 24 hours- BMP: Recent Labs 11/25/24 0452 11/25/24 1352 11/26/24 0631 11/26/24119911/26/24 17311/26/24 2336 11/27/24 0540 NA 132* < > [...] interval not displayed. LFTs: Recent Labs 11/24/24 16411/24/24 22211/26/24 0631 11/27/24 0540 AST 25 -- 21 18 ALT 10 -- 9 10 PROT 5.9* -- 5.7* 5.1* ALBUMIN 2.2* -- 2.5* 2.3* BILITOT 2.0* -- 1.3* 1.0 BILIRUBINU -- Negative -- -- ALKPHOS 111 -- 91 82 Glucose: Recent Labs 11/25/24 1821 11/25/24 2045 11/26/24 0039 11/26/24 0631 11/26/24119911/26/24 17311/26/24 2336 11/27/24 0540 GLUCOSE 158* 178* 171* [...] 11/24/24 1849 11/25/24 1653 PHART -- 7.407 CZM8ZRJ -- 25.4* PO2ART -- 111.8* XOK3SFP -- 15.6* A6THUPSH None (Room Air) None (Room Air) Lactic Acid: Recent Labs 11/24/24 1641 LACTATE 1.7 INR: No results for input(s): "INR" in the last 72 hours. Cardiac Injury Profile: Recent Labs 11/24/241848 CKTOTAL 59 Labs in Last 3 months: [...] having documented bowel movements Debility - PT/OT evals - From home [...] Carpenter MD at 11/27/2024 4:30 PM EDT [facility] Respiratory Care Department Progress Note Comment [...] creatinine, and vancomycin levels interfaced automatically to [employer] and data has been analyzed and interpreted. [...] OA of bilateral knees, HOGAN presented to [facility] ED on 11/24/24 from home with complaint [...] 1-100 mcg/min, Last Rate: 13 mcg/min (11/25/24 0676) vasopressin in D5W, 0.01-0.03 Units/min, Last Rate: [...] ENT/Mouth: Inspection of teeth/lips/gums Dentition: []Adequate [x]Poor [][place] Teeth []Dentures Mucosa: []Moist [x]Dry Oral secretions: [...] [x]Yes []No Urine appearance: [x]Yellow []Janice []Tea-colored []Snover-tinged []Filiberto hematuria [] Sediment []Clots Musculoskeletal: Extremities [...] (11/25/242335) 82 (11/25/242335) Arterial BP MAP 107/51 (11/26/2499) 72 mmHg (11/26/2499) Temp 36 C (96.8 F) (11/25/24 1200) Pulse 72 (11/26/2499) Resp (!) 10 (11/26/2499) SpO2 99 % (11/26/2499) Weight 126 kg (277 lb 12.5 oz) (11/24/242253) BMI Body mass index is 44.83 kg/m . [facility] Labs within last 24 hours- BMP: Recent Labs 11/25/24 0452 11/25/24 1352 11/25/24 2045 11/26/24 0039 11/26/24630 NA 132* < > 138 138 138 [...] interval not displayed. LFTs: Recent Labs 11/24/24 16411/24/24221911/26/24 0631 AST 25 -- 21 ALT 10 -- 9 PROT 5.9* -- 5.7* ALBUMIN 2.2* -- 2.5* BILITOT 2.0* -- 1.3* BILIRUBINU -- Negative -- ALKPHOS 111 -- 91 Glucose: Recent Labs 11/24/24 16411/25/24 0452 11/25/24 1352 11/25/24 1821 11/25/24 2045 11/26/24 0039 11/26/24 0631 GLUCOSE 116* 116* 120* 158* 178* 171* 165* Procal: No results for input(s): "PROCAL" in the last 72 hours. CBC: Recent Labs 11/24/24 1641 11/24/24 1849 11/25/24 0452 11/25/24 1653 11/26/24 0631 WBC 8.9 -- 8.5 -- 9.1 HGB 9.1* < > 8.1* 8.4 8.1* HCT 26.7* -- 23.3* -- 23.9* PLT 104* -- 91* -- 129* MCV 100.0* -- 101.7* -- 101.3* RDW 12.9 -- 13.2 -- 13.3 < > = values in this interval not displayed. ABGs: Recent Labs 11/24/24 18411/25/24 1653 PHART -- 7.407 QGY7QPY -- 25.4* PO2ART -- 111.8* TXU4RQJ -- 15.6* R4LEHLPQ None (Room Air) None (Room Air) Lactic [...] original note were not included. PHYSICAL THERAPY [facility] Initial Evaluation Name/MRN: Maxwell Collier ([id number]) Evaluation Date: 11/25/2024 Date of : 1960 Admission Date: 11/24/2024 1:30 PM Age: 64 y.o. Room/Bed: T3-306/T3-306 A Discharge Recommendation: Detention Facility Other: tbd Assessment IMPRESSION: Pt presents [...] Needs Assist Receives Help From: Spouse Active Sandblaster Paint Sprayer: No Prior Level of Function Prior Level [...] of Care supervision is transferred to a [facility] Physical Therapist. Goals and/or treatment plan was established in collaboration with patient/family/other representatives. Pharmacy to Dose Vancomycin - Progress Note Lab Results Component Value Date CREATININE 1.02 11/25/2024 BUN 68 (H) 11/25/2024 WBC 8.5 11/25/2024 Doses, serum creatinine, and vancomycin levels interfaced automatically to [employer] and data has been analyzed and interpreted. [...] OA of bilateral knees, HOGAN presented to [facility] on 11/24/24 from home with complaint [...] mcg/min, Last Rate: 10 mcg/min (11/25/24 0654) Objective: Constitutional: General Appearance []Normal appearance [x]Ill-appearing [...] ENT/Mouth: Inspection of teeth/lips/gums Dentition: []Adequate [x]Poor [][place] Teeth []Dentures Mucosa: []Moist [x]Dry Oral secretions: [...] [x]Yes []No Urine appearance: [x]Yellow [x]Janice []Tea-colored []Snover-tinged []Filiberto hematuria [] Sediment []Clots Musculoskeletal: Extremities [x]Moves all extremities equally []Strength/Tone: Intact and Normal [x]Generalized weakness []Focal weakness: Injury/trauma: []Absent []Present Skin: Inspection []Normal []Pale []Rash []Lesion [x]Wound/s Excoriation to groin, beneath breasts, gluteal cleft, large wound to medial adam Palpation [x]Warm []Cool []Hot [x]Dry []Clammy Cap-Refill: [x] <3 sec [] >3 seconds (delayed) I/O: 11/24 0700 - 05/09 0659 In: 2131.3 [I.V.:2131.3] Out: 800 [Urine:800] [...] BP MAP (!) 89/49 (11/25/24 0645) 61 (11/25/24644) Arterial BP MAP Temp (!) 35.8 C (96.5 F) (11/25/24 0400) Pulse 67 (11/25/24644) Resp (!) 11 (11/25/24644) SpO2 100 % (11/25/24644) Weight 126 kg (277 lb 12.5 oz) (11/24/24 2254) BMI Body mass index is 44.83 kg/m . [facility] within last 24 hours- BMP: Recent Labs 11/24/24164011/25/24451 NA 126* 132* K 3.5 2.4* CL 95* 105 CO2 13* 15* BUN 92* 68* CREATININE 1.59* 1.02 CALCIUM 8.2* 7.5* LFTs: Recent Labs 11/24/24164011/24/24 2220 AST 25 -- ALT 10 -- PROT 5.9* -- ALBUMIN 2.2* -- BILITOT 2.0* -- BILIRUBINU -- Negative ALKPHOS 111 -- Glucose: Recent Labs 11/24/24164011/25/24451 GLUCOSE 116* 116* Procal: No results for input(s): "PROCAL" in the last 72 hours. CBC: Recent Labs 11/24/24164011/24/24184811/25/24451 WBC 8.9 -- 8.5 HGB 9.1* 8.8 8.1* HCT 26.7* -- 23.3* PLT 104* -- 91* MCV 100.0* -- 101.7* RDW 12.9 -- 13.2 ABGs: Recent Labs 11/24/241848 [id number] None (Room Air) Lactic Acid: Recent Labs 11/24/241640 LACTATE 1.7 INR: No results for input(s): "INR" in the last 72 hours. Cardiac Injury Profile: Recent Labs 11/24/241848 CKTOTAL 59 Labs in Last 3 months: [...] states she was eating poorly x4-5 days PHYSICIAN CODING SPECIALIST (sips of water and bites of toast). She was reluctantly agreeable for RD to order a lobato marshallese yogurt cup this AM for breakfast (after [...] poor appetite and PO intake x4-5 days PHYSICIAN CODING SPECIALIST, today endorses ongoing poor appetite, reluctantly agreeable to have RD order a marshallese yogurt cup for breakfast this AM, agreeable to ONS for increased protein to promote wound healing) Weight Loss: No significant weight loss (pt reports her weight has been stable PHYSICIAN CODING SPECIALIST- pt CBW 277# bedscale on 11/24, was 280# stated on 11/24 presentation, per EPIC review --> limited recent history however noted 07/02/22: 270#, 10/16/22: 286#, 10/12/24: 283.4# which indicates terminal carman stable weight) Body Fat Loss: No significant body fat loss Muscle Mass Loss: No significant muscle mass loss Fluid Accumulation: Moderate to Severe (generalized +2 moderate pitting edema per flowsheets) Order Processor Strength: Not Performed Nutrition Assessment: pt with PMH significant for HTN, knee OA and DVT (on Xarelto) who presented to [facility] on 11/24/24 with complaint of one week of generalized weakness and fatigue, pt reported on 11/20 she was unable to get up from her chair due to weakness, pt was unable to get up even with assistance from her , pt then remained in the chair until calling EMS on 5/8, pt also reported decreased appetite during this [...] much PO intake for about 4-5 days PHYSICIAN CODING SPECIALIST, pt is reluctantly agreeable for RD to order her a marshallese yogurt cup for breakfast (after offering many options), pt states that she does not follow any special diets PHYSICIAN CODING SPECIALIST, pt denies food allergies, denies chewing/swallowing issues, pt reports that her weight has been stable PHYSICIAN CODING SPECIALIST- pt CBW 277# bedscale on 11/24, was 280# stated on 11/24 presentation, per EPIC review --> limited recent history however noted 07/02/22: 270#, 10/16/22: 286#, 10/12/24: 283.4# which indicates terminal carman stable weight, pt states that she has used ONS in the past but not routinely- she states that she would be agreeable to Chocolate Ensure once daily to promote wound healing, pt otherwise denies having further questions/concerns for RD, will continue to monitor clinical course. Estimated Daily Nutrient Needs: Energy Requirements Based On: Kcal/kg Weight Used for Energy Requirements: [place] Weight for Energy Calculation (kg): 59.1 kg Total Energy Requirements (kcals/day): 1300-1478kcals/day Weight Used for Protein Requirements: [place] Weight in Kg Used for Protein Requirements: [...] 270#, 10/16/22: 286#, 10/12/24: 283.4# which indicates fpc stable weight) Mackay Body Weight (lbs) (Calculated): 130 lbs Mackay Body Weight (Kg) (Calculated): 59 kg % Mackay Body Weight (Calculated): 213.1 % BMI (kg/m2) [...] determine Jennifer Senior RD Contact: available via [employer] chat or *[phone] documented in this encounter [facility] 12-01-2024 Consult note Formatting of th is note is different from the original. Images from the original note were not included. Hospital Medicine Consult Patient - Maxwell Collier, Age - 64 y.o. - 1960 Room Number - [id number] Consulting - Justo Tejada DO Primary Care Physician - Priscilla Llanes MD [facility] # - [id number] Date of Admission - 11/24/2024 1:30 PM Hospital Day - 7 Reason for Consult: Medical Management HISTORY OF PRESENT ILLNESS: This is a 64 y/o female with a PMHX of HTN, peripheral venous insuffiencey, DVT on xarelto, obesity, HOGAN, and osteoarthritis. She presented to [facility] on 11/24/24 with complaints of increased [...] 11/27. Pt stable and transferred to the [facility] 11/30 under the hospitalist service. Pt/OT [...] Emergency Contact: Justin Collier Mobile Relation: Spouse Birthing Nurse needed? No Justo TejadaDO Division of Hospitalist Medicine [facility] [1] Past Medical History: Diagnosis Date Blood [...] better over recent days as compared to PHYSICIAN CODING SPECIALIST. Pt is currently ordered Ensure Max TID (was initiated per RD at once daily and order modified by RN to TID), pt states that she was ok with the Ensure at first but now she is burnt out on it- accumulation of 4 unopened ONS at bedside. Pt is interested in trying [place] Jair now that her appetite is improving. Per MNT Protocol will adjust ONS to [place] Jair with lunch- pt only wishes to [...] home- was motivated to make changes following longterm 1 month ago but then began to [...] intake (Comment) (pt with poor/minimal PO intake PHYSICIAN CODING SPECIALIST x4-5 days, appetite is now improving and she is eating better at meals, wants Ensure Max adjusted to Jair) Weight Loss: No significant weight loss (pt endorses stable weight PHYSICIAN CODING SPECIALIST, pt CBW 293# no method 11/28, was 277# bedsclae on arrival 11/24, per EPIC review --> limited recent history however noted 07/02/22: 270#, 10/16/22: 286#, 10/12/24: 283.4# which indicates terminal carman stable weight) Body Fat Loss: No significant body fat loss Muscle Mass Loss: No significant muscle mass loss Fluid Accumulation: Moderate to Severe (generalized +2 moderate pitting, BUE moderate, RLE +4 very deep pitting, LLE +3 deep pitting edema per flowsheets) Order Processor Strength: Not Performed Nutrition Assessment: pt with previously reviewed PMH who remains admitted to the ICU after she initially presented to [facility] on 11/24/24 with complaint of one [...] 2/2 OA knees which led to her longterm 1 month ago, upon arrival to the [...] she has been 'addicted' to the lobato marshallese yogurt cup which she has been having for breakfast, states that she also had eggs which she enjoyed, pt states that she was able to have the fish with brown rice for dinner yesterday which she very much enjoyed because she states she doesn't get to eat fish much at home because her 'only likes beef', pt states that after he longterm 1 month ago she had plans to [...] meals and pt is interested in trying [place] Jair- will adjust ONS order- pt wants [...] 270#, 10/16/22: 286#, 10/12/24: 283.4# which indicates fpc stable weight) Mackay Body Weight (lbs) (Calculated): 130 lbs Mackay Body Weight (Kg) (Calculated): 59 kg % Mackay Body Weight (Calculated): 225.4 % BMI (kg/m2) [...] counseling Jennifer Senior RD Contact: available via [employer] chat or *[phone] [1] acetaminophen, 1,000 mg, Oral, q8h buPROPion [...] from the original note were not included. [facility] Department of Psychiatry Nurse Practitioner Consult Note Please contact [facility] Listed in [facility] On-Call Finder Mon-Fri: From 1700 - 0800 and Weekends IDENTIFYING INFORMATION Name: Maxwell Collier : 1960 TODAY'S DATE: 11/28/24 ADMISSION DATE: 11/24/2024 Reason for Psychiatric Consult: depression, failure to thrive, asking for help and anti-depressant" Requesting Physician[facility]ing Practitioner: CHING Ford Hospital Day: 3 [...] 64 y.o., female who was hospitalized at [facility] for Wound of left lower extremity, initial encounter on 11/24/2024. PMH of HTN, knee OA, DVT on Xarelto who presented to [facility] on 11/24/24 for one week of generalized [...] injection 50 mg, 50 mg, IntraVENous, q8h, LEANN John CNP, 50 mg at 11/28/24 1334 lidocaine (Uro-Jet) 2 % gel, , Urethral, PRN, Abdi Alcantara DO miconazole (Micotin) 2 % powder, , Topical, BID, LEANN Woodall CNP, Given at 11/28/24 0900 mupirocin (Bactroban) 2 [...] mL injection, 40 mg, IntraVENous, Daily, Sonia Pachecoa, RESIDENT PHYSICIAN - CLAIM EXAMINER, 40 mg at 11/26/24 0838 Petrolatum ointment, , Topical, Daily, Sonia Malloy, RESIDENT PHYSICIAN - CLAIM EXAMINER, Given at 11/28/24 0655 Petrolatum ointment, , Topical, BID, Olive Lane RESIDENT PHYSICIAN - CLAIM EXAMINER piperacillin-tazobactam (Zosyn) 4,500 mg in sodium chloride 0.9 % 100 mL IVPB Mini-Bag Plus, 4,500 mg, IntraVENous, q6h, Maxwell Devi DO, Last Rate: 33.3 mL/hr at 11/28/24 1211, 4,500 mg at 11/28/24 1211 polyethylene glycol (PEG) 3350 (Miralax) packet 17 g, 17 g, Oral, Daily PRN, Maxwell Devi DO potassium chloride (Klor-Con) packet 40 mEq, 40 mEq, Oral, TID, Sonia M Bica, RESIDENT PHYSICIAN - CLAIM EXAMINER, 40 mEq at 11/28/24 1334 sodium chloride 0.9 % infusion, 250 mL/hr, IntraVENous, PRN, Sonia M Bica, RESIDENT PHYSICIAN - CLAIM EXAMINER sodium chloride 0.9% (NS) flush 5-40 mL, 5-40 mL, IntraCATHeter, q8h, Sonia M Bica, RESIDENT PHYSICIAN - CLAIM EXAMINER, 10 mL at 11/28/24 0859 sodium chloride 0.9% (NS) flush 5-40 mL, 5-40 mL, IntraVENous, PRN, Sonia M Bica, RESIDENT PHYSICIAN - CLAIM EXAMINER stomahesive in petrolatum (ET Mix), , Topical, PRN, Sonia Malloy, RESIDENT PHYSICIAN - CLAIM EXAMINER, Given at 11/25/24 0903 stomahesive in petrolatum (ET Mix), , Topical, q8h, Sonia Lopezks, RESIDENT PHYSICIAN - CLAIM EXAMINER, Given at 11/28/24 0151 vancomycin IVPB 1500 [...] Left 2006 Social History: , lives in [place], no children is retired. Social History Tobacco [...] QT Interval 485 QTC Interval 507 P Altheimer -16 QRS Altheimer -7 T Wave Altheimer 87 CO Interval 252 Impression Sinus rhythm MOBITZ I [...] Follow up: will follow peripherally Please contact [facility] Listed in [facility] On-Call Finder for urgent needs Mon-Fri: From [...] from the original note were not included. [facility] [address] [place] [phone] Dept: [phone] This is a 64-year-old woman seen for [...] [facility] Outpatient medications included amlodipine 10 mg [...] from the original note were not included. [facility] Wound Care CONSULT Note Maxwell Collier AGE: 64 y.o. GENDER: female : 1960 Subjective: HISTORY of PRESENT ILLNESS HPI Maxwell Collier is a 64 y.o. female who presents for a wound consult. HPI: Ms. Collier is a 64 y.o. female with PMH HTN, knee OA, DVT on Xarelto who presented to [facility] on 11/24/24 for one week of generalized [...] drainage. Periwound fragile 11/25/24 Left abdomen folds: Snover/Red rash noted to area. Moist skin noted. Fungal appearance Rosaura-area: Snover rash noted to area. Moist skin noted. Fungal appearance 11/25/24 Left breast: Snover/Red rash noted to area. Moist skin noted. Scant serosang drainage. Fungal appearance 11/25/24 Right breast: Snover rash noted to area. Moist skin noted. [...] apply Miconazole powder then leave PARVEEN BID Rosaura-area: Fungal dermatitis - Clean with soap and water, dry well, apply Miconazole powder then leave PARVEEN BID Right and Left breast: Fungal dermatitis - Clean with soap and water, dry well, apply Miconazole powder then leave SUPERVISOR FILM PROCESSING BID Bilateral buttocks: Pressrue Injury (unstageble) - Clean with soap and water, apply ET mix then leave SUPERVISOR FILM PROCESSING TID and PRN Left hip: Pressure Injury (Stage 3) - Clean with soap and water, apply ET mix then leave SUPERVISOR FILM PROCESSING TID and PRN TCB bed Reposition q2hrs Incontinent checks q2hrs Nutritional support Wound Care to follow Recommend to follow up at [facility] after hospital discharge. [...] creatinine, and vancomycin levels interfaced automatically to [employer] and data has been analyzed and interpreted. [...] via Secure Chat documented in this encounter [facility] 11-30-2024 Hospital Discharge instructions LEANN Arceo CNP - 11/30/2024 3:59 PM EDT [facility] Hannah Davis APRNS[facility] Ariel Jane RN - 12/02/2024 [...] Emergency Contact: Justin Collier Mobile Relation: Spouse Birthing Nurse needed? No Past Surgical History: Past Surgical [...] assistance Toileting Total assistance Feeding Minimal assistance Access Nurse Minimal assistance Med Delivery yes Wound Care Documentation and Therapy: Wound/Incision 11/24/24 Pressure Injury Flank Left;Upper (Active) Wound Image 11/24/242231 Site Assessment Fragile 12/01/24 105 Rosaura-Wound Assessment Fragile;Red;Rash 12/01/24 1050 Drainage Description Red 11/29/241999 Odor Malodorous/putrid 11/29/241999 Drainage Amount Moderate 11/29/241999 Treatments Cleansed;Site care 11/29/241999 Primary Dressing Open to air 11/30/24 2030 Number of days: 7 Wound/Incision 11/24/24 Pressure Injury Flank Right;Upper (Active) Wound Image 11/24/242232 Site Assessment Excoriated 11/30/242029 Rosaura-Wound Assessment Red 11/29/241999 Drainage Amount None 11/29/241999 Primary Dressing Open to air 12/01/24 1050 Number of days: 7 Wound/Incision 11/24/24 Pressure Injury Leg Anterior;Left;Proximal;Upper (Active) Wound Image 11/24/242232 Site Assessment Excoriated 12/01/24 1050 Drainage Amount None 11/29/241999 Primary Dressing Open to air 12/01/24 1050 Number of days: 7 Wound/Incision 11/24/24 Pressure Injury Leg Anterior;Proximal;Right;Upper (Active) Wound Image 11/24/24 2233 Site Assessment Red 12/01/24 1050 Drainage Amount None 11/28/24 0800 Primary Dressing Open to air 12/01/24 1050 Number of days: 7 Wound/Incision 11/24/24 Venous Ulcer Calf Anterior;Left (Active) Wound Image 11/24/24 2234 Site Assessment Unable to assess 11/30/24 2322 Rosaura-Wound Assessment Fragile 11/29/24 2000 Odor Malodorous/putrid 11/29/241999 Treatments Cleansed;Pharmaceutical agent 11/30/24 [...] to assess 11/30/24 2322 Rosaura-Wound Assessment Red 11/29/241999 Drainage Amount Small 11/28/24 0800 Treatments Cleansed 11/30/24 1200 Primary Dressing ABD;Adaptic;Rolled gauze (Kerlix) 11/30/242321 Dressing Status Clean, dry & intact 11/30/242321 Number of days: 4 Elimination: Continence: Bowel: [...] Date: 11/24/24 Discharging to Facility/ Agency Name: [facility] [address] [address] 12 me Bullet Assembly 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 Operator/Jewelry Making Instructor signature: ICIAN SECTION Name: Maxwell Sam Collier Prognosis: good Condition at Discharge: stable Rehab Potential (if transferring to Rehab): good Recommended Labs or Other Treatments After Discharge: The individual is being admitted to a nursing facility directly from an [facility] or a unit of a hospital that is not operated by or licensed by [facility] under section 5119.14 or 5160-3-15.1 5 The individual requires the level of services provided by a nursing facility for the condition for which he or she was treated in the hospital and, Physician Certification: I certify the above information and transfer of Maxwell Collier is necessary for the continuing treatment of the diagnosis listed and that she requires [facility] facility for less than 30 days. Update Admission H&P: No change in H&P PHYSICIAN SIGNATURE: The following attachments cannot be sent through Care Everywhere.Heart Healthy Diet (Bengali)documented in this encounter [facility] 11-25-2024 Note [facility] 11-25-2024 Procedure note Associated Ord er(s): [...] documented as signed by this procedure note Quartz Miner(s): N/A No supervision required Cosigned by Maria [...] documented as signed by this procedure note Quartz Miner(s): N/A No supervision required Cosigned by Maria Isabel Mckeon DO at 11/25/2024 2:30 PM EDT documented in this encounter [facility] 11-25-2024 Note [facility] 11-24-2024 Emergency department Note Report to Lauren on T3. Pt completely covered in stool. Pt cleaned up. Pt has multiple wounds. Pictures uploaded to chart. I did not participate in the care of this patient. Narendra Lai PA-C 11/24/24 1315 Emergency Department Encounter [facility] Patient: Maxwell Collier : 1960 [...] workup treatment. ED Course as of 11/24/24 182 Keisha November 24, 2024 1527 Complaining of [...] [] David Martin DO Diagnoses as of 11/24/241823 Wound of left lower extremity, initial encounter [...] for clarification.) Joe Schulte MD [employer] Joe Schulte MD 11/24/24 1726 Pt arrived from home for failure to thrive. Pt states she has been in so much pain that she has been unable to get out of her chair x1 week. Pt covered in feces and wound to left lower leg. documented in this encounter [facility] 11-24-2024 Note [facility] 11-24-2024 History and physical note Images from the original note were not included. Internal Medicine: MICU Initial History and Physical Name: Maxwell Collier : 1960(64 y.o.) Date: 11/24/24 Attending: Dr. Raines Subjective: Chief Complaint: FTT HPI: 64 y.o. 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 Disposition: ICU Cosigned by Miah Raines MD at 11/25/2024 5:39 AM EDT Associated attestation - Miah Raines MD - 11/25/2024 5:39 AM EDT I have personally performed a [id number] diagnostic evaluation on this patient on date of service 11/24/24. History, labs, imaging studies, and electronic medical record have been reviewed by me. This note documented by the [x]in house cra []NANCY reflects my history, exam, and medical decision making. I have reviewed and agree with the care plan. Changes were made in the orders as necessary. ROS documentation was reviewed and negative unless otherwise stated in HPI. Additional pertinent interval history, ROS, and physical exam findings: 64 yo CF PMHx HTN, knee OA, DVT on Xarelto who presented to [facility] on 11/24/24 for one week of generalized [...] today, excluding procedures. documented in this encounter [facility] 10-02-2024 Telephone encounter Note S: Patient spoke [...] Protocols used: Information Only Call - No [id number] [facility] 10-02-2024 Miscellaneous Notes S: Patient spoke with [...] Protocols used: Information Only Call - No [id number] documented in this encounter [facility] 11-12-2022 Telephone encounter Note Surgery canceled [facility] 11-12-2022 Miscellaneous Notes Surgery canceled Maxwell has a wound on her right foot and where she had a skin graft on the left leg is starting to peel. She is going to call her air defense specialist to be seen. She would like to postpone her surgery at this time. She states she will call when she is ready to reschedule. No Auth needed for medical mutual. Alyssa spoke with the patient about PAT information. PAT: TBD Sx: 5/ @ 830 Dx: m17.11 CPT: 37216,15895 Case #: [id number] Procedure: Right Total Knee Arthroplasty Time: 1 hour Diagnosis: 1. Primary osteoarthritis of right knee Blood: none Anesthesia: spinal/adductor canal block DVT proph: Xeralto Injection: Toradol Return to Office: No Repeat Xrays: No Implants: depuy attune with s plus tibia, velys robot documented in this encounter [facility] 11-11-2022 Telephone encounter Note Maxwell has a wound on her right foot and where she had a skin graft on the left leg is starting to peel. She is going to call her air defense specialist to be seen. She would like to postpone her surgery at this time. She states she will call when she is ready to reschedule. [facility] 10-29-2022 Telephone encounter Note No Auth needed for medical mutual. Alyssa spoke with the patient about PAT information. [facility] 10-29-2022 Miscellaneous Notes No Auth needed for medical mutual. Alyssa spoke with the patient about PAT information. PAT: LAITH Sx: 5/ @ 830 Dx: m17.11 CPT: 36886,[id number] Case #: [id number] Procedure: Right Total Knee Arthroplasty Time: 1 hour Diagnosis: 1. Primary osteoarthritis of right knee Blood: none Anesthesia: spinal/adductor canal block DVT proph: Xeralto Injection: Toradol Return to Office: No Repeat Xrays: No Implants: depuy attune with s plus tibia, velys robot documented in this encounter [facility] 10-27-2022 Telephone encounter Note PAT: LAITH Sx: 51 @ 830 Dx: m17.11 CPT: 19109,40322 Case #: [id number] Procedure: Right Total Knee Arthroplasty Time: 1 hour Diagnosis: 1. Primary osteoarthritis of right knee Blood: none Anesthesia: spinal/adductor canal block DVT proph: Xeralto Injection: Toradol Return to Office: No Repeat Xrays: No Implants: depuy attune with s plus tibia, velys robot [facility] 10-16-2022 History of Present illness Narrative Images from the original note were not included. [facility] [address] [place] [phone] Dept: [phone] Dept 10/16/2022 Chief Complaint Patient presents with [...] to date has consisted of: NSAIDS: No Document Control Manager Brace: No Cortisone injections: Yes, 07/02/2022, helped [...] the following: A pre-surgical evaluation by an stitcher utility will be arranged. will order the pre-operative laboratory tests as well as EKG which will be checked by the stitcher utility. will make arrangements with the operating room [...] Office: No Repeat Xrays: No Implants: depuy Editoriallyune with s plus tibia, velys robot Other: The risks, benefits, and alternatives to all of the treatment options were thoroughly explained. Patient will call us with any questions or concerns regarding this plan or if any significant issues arise. Electronically signed by Shyam Kirkland M.D. 10/16/2022 at 1:33 PM. Dictated using scoo mobility Version 2.4 Proof read however unrecognized voice recognition errors may have occurred documented in this encounter [facility] note Diagnosis Primary osteoarthritis of right knee [facility] Diagnosis Wound of left lower extremity, initial encounter- Primary Wound of left lower extremity, initial encounter Wound infection Posttraumatic wound infection not elsewhere classified Lower extremity edema Edema [facility] noteNo assessment information availableWWexner [facility] Work Phone: Reason for referral (narrative)No reason for referral information availableWWexner Medical Center Work Phone: Summary Purpose Family [...] m LABWORK December 19, 2024 5:00a m CUSTODIAL LAB WORK January 23, 2025 6:0 0am Additional Source Comments INFORMATION SOURCE (unrecogn ized section and content) DATE CREATED AUTHOR 01/06/2018 [facility] DATE CREATED AUTHOR AUTHOR'S ORGANIZ ATION 01/11/2018 [facility] DATE CREATED AUTHOR AUTHOR'S ORGANIZ ATION 04/25/2022 [facility] DATE CREATED AUTHOR AUTHOR'S ORGANIZ ATION 01/07/2025 [facility] DATE CREATED AUTHOR AUTHOR'S ORGANIZ ATION 03/13/2025 [facility] Reason for Visit (unrecogniz ed section and [...] Specialty Diagnoses / Procedures Referred By Cassidy t Referred To Contact Diagnoses Lower extremity edema Wound infection Wound of left lower extremity, initial encounter Procedures . Miah Raines MD [address] [place] [address] Phone: tel: fax: [facility] Intensive Care Unit MICU [address] [place] [address] Phone: tel: Referral ID Status Reason Start Date Expiration Date Visits Re quested Visits Authorized [id number] 1 1 Care Teams (unrecognized sec tion and content) Flat Bed Knitter Relationship Specialty Start Date End Date Aishwarya Rooney MD [address] [place] [address] [phone] PCP - General 03/25/17 Flat Bed Knitter Relationship Specialty Start Date End Date Aishwarya Rooney MD [address] [place] [address] [phone] PCP - General 03/25/17 Flat Bed Knitter Relationship Specialty Start Date End Date Aishwarya Rooney MD [address] [place] [address] [phone] PCP - General 03/25/17 Erika Soto, RN Nurse Navigator Orthopedic Surgery 10/29/2202/17/23 Flat Bed Knitter Relationship Specialty Start Date End Date Aishwarya Rooney MD [address] [place] [phone] PCP - General 03/25/17 Erika Soto RN Nurse Navigator Orthopedic Surgery 10/29/2202/17/23 Flat Bed Knitter Relationship Specialty Start Date End Date Aishwarya Rooney MD [address] [facility] [address] [place] [phone] PCP - General 03/25/17 Flat Bed Knitter Relationship Specialty Start Date End Date Priscilla Llanes MD [address] [place] [phone] PCP - General Internal Medicine [...] split. 0934 (Given - Provider: Mayela Plascencia RN)2146 (Given - Provider: Consuelo Colbert RN) 908 (Given - Provider: Bebeto Hernandez RN)2039 (Given - Provider: Lety Grijalva RN) 08 (Given - Provider: Ariel Jane RN) chlorhexidine (Hibiclens) 4 % solution Topical, Daily, First dose on Thu11/26/24 at 1400 1152 (Given - Provider: Jessy Chan, ASHLEY) 1346 (Given - Provider: Bebeto Hernandez, ASHLEY) [...] unheld 1530 (Dose Auto Held - Provider: LEANN John CNP) 1530 (Dose Auto Held - Provider: LEANN John CNP) 1442 (Unheld by provider - Provider: Automatic [...] Topical, 2 times daily, First dose on Keisha 11/24/24 at 2300, Nursing staff to perform dressing change: Left abdomen folds: Fungal dermatitis - Clean with soap and water, dry well, apply Miconazole powder then leave SUPERVISOR FILM PROCESSING BID Rosaura-area: Fungal dermatitis - Clean with soap and water, dry well, apply Miconazole powder then leave PARVEEN BID Right and Left breast: Fungal dermatitis - Clean with soap and water, dry well, apply Miconazole powder then leave PARVEEN BID 0935 (Given - Provider: Mayela Plascencia RN)2148 (Given - Provider: Consuelo Colbert, RN) 09 (Given - Provider: Bebeto Hernandez, ASHLEY)2040 (Given - Provider: Lety Grijalva RN) 0831 (Given - Provider: Ariel Jane RN) pantoprazole (ProtoNix) 40 mg in sodium chloride (PF) 0.9 % 10 mL injection(Linked Group 1) 40 mg, IntraVENous, Administer over 2 Minutes, Daily, First dose on 11/26/24 at 0900, Give only if unable to tolerate po. 0933 (See Alternative - Provider: Mayela Plascencia RN) 0908 (See Alternative - Provider: Bebeto Hernandez RN) 0829 (See Alternative - Provider: Ariel Jane, ASHLEY) pantoprazole (ProtoNix) EC tablet 40 mg(Linked Group 1) 40 mg, Oral, Daily, First dose on 11/26/24 at 0900, Do not crush, chew, or split. 0933 (Given - Provider: Mayela Plascencia RN) 0908 (Given - Provider: Bebeto Hernandez RN) 0829 (Given - Provider: Ariel Jane RN) Petrolatum ointment Topical, Daily, First dose on 11/26/24 at 0600, Nursing staff to perform dressing change: Right lower leg: Venous stasis dermatitis - Clean with soap and water, apply Aquaphor then leave PARVEEN daily 1110 (Not Given - Provider: Jessy Chan RN - Reason: Patient not available) 0503 (Given - Provider: Consuelo Colbert, ASHLEY) 0833 (Not Given - Provider: Ariel Jane RN - Reason: Other - Comment: duplicate) Petrolatum ointment Topical, 2 times daily, First dose on 11/28/24 at 1500, Apply to arms and legs . 1029 (Given - Provider: Jessy Chan RN)1844 (Given - Provider: Jessy Chan RN) 0642 (Given - Provider: Consuelo Colbert, ASHLEY)1452 (Given - Provider: Bebeto Hernandez, ASHLEY) 0832 (Given - Provider: Ariel Jane RN - Comment: late) phosphorus (K Phos Neutral) tablet 2 tablet (COMPLETED) 2 tablet (500 mg), Oral, Once, On Thu12/02/24 at 0930, For 1 dose, Each tablet contains 250 mg phosphorus, 298 mg sodium, 1.1 mEq potassium. 0955 (Given - Provider: Bebeto Hernandez RN) phosphorus (K Phos Neutral) tablet 2 tablet (COMPLETED) 2 tablet (500 mg), Oral, Once, On Thu12/03/24 at 0945, For 1 dose, Each tablet [...] Jessy Chan RN)1643 (Stopped - Provider: Jessy Chan, RN)1839 (New Bag - Provider: Jessy Chan RN)2148 (Stopped - Provider: Consuelo Colbert, ASHLEY) potassium chloride (Klor-Con) packet 40 mEq (COMPLETED) [...] mEq (COMPLETED) 40 mEq, Oral, Once, On Thu12/03/24 at 0945, For 1 dose, Dissolve each [...] Mayela Plascencia RN)1845 (Given - Provider: Jessy Chan RN)2330 (Not Given - Provider: Consuelo Colbert RN - Reason: IV Fluids Infusing) 0910 (Given - Provider: Bebeto Hernandez, ASHLEY)1623 (Given - Provider: Bebeto Hernandez, ASHLEY)2311 (Given - Provider: Lety Grijalva RN) 0831 [...] and PRN 0320 (Given - Provider: Harleen Bowen, RN)0935 (Given - Provider: Mayela Plascencia, RN)1108 (Given - Provider: Jessy Chan RN)1845 (Given - Provider: Jessy Chan RN) 0247 (Not Given - Provider: Consuelo Colbert, ASHLEY - Reason: Patient/family refused)1000 (Given - Provider: Bebeto Hernandez RN)1733 (Given - Provider: Bebeto Hernandez, ASHLEY) 0137 (Not Given - Provider: Lety Griajlva RN - Reason: Patient/family refused)1017 (Given - Provider: Ariel Jane RN) PRN Medication Order 12/01/2024 12/02/2024 12/03/2024 acetaminophen (Tylenol) tablet 650 mg 650 mg, Oral, Every 4 hours PRN, mild pain (1-3), Starting on Thu11/30/24 at 1245, Maximum dose of acetaminophen is 4000 mg from all sources in 24 hours. 1105 (Given - Provider: Jessy Chan RN)1644 (Given - Provider: Jessy Chan, ASHLEY) 0444 (Given - Provider: Consuelo Colbert, ASHLEY)2039 (Given - Provider: Lety Grijalva, ASHLEY) 1017 (Given - Provider: Ariel Jane RN) [...] Starting on Keisha 11/24/24 at 2212, +++notify resource conservation manager provider if used+++ ondansetron (Zofran) injection 4 [...] hours PRN, moderate pain (4-6), Starting on Thu11/24/24 at 2325 1105 (See Alternative - Provider: Jessy Chan, RN)1644 (See Alternative - Provider: Jessy Chan RN) 1533 (See Alternative - Provider: Whitney Pradhan RN)2313 (See Alternative - Provider: Lety Grijalva, RN) polyethylene glycol (PEG) 3350 (Miralax) packet 17 g 17 g, Oral, Daily PRN, constipation, Starting on Thu11/24/24 at 2212, Indications: Constipation sodium chloride 0.9% [...] dry well, apply Miconazole powder then leave SUPERVISOR FILM PROCESSING BID Bilateral buttocks: Pressrue Injury (unstageble) - Clean with soap and water, apply ET mix then leave PARVEEN TID and PRN Left hip: Pressure Injury (Stage 3) - Clean with soap and water, apply ET mix then leave SUPERVISOR FILM PROCESSING TID and PRN Linked Groups Order Group 1: pantoprazole (ProtoNix) EC tablet 40 mgJump to med 40 mg, Oral, Daily, First dose on Thu11/26/24 at 0900, Do not crush, chew, or [...] BE BASED ON THE PRIMARY CLINICAL RECORDS. [facility]. provides no warranty or guarantee of the accuracy or completeness of information in this document.
[2025-03-22 07:42] LABS: Hematocrit 34.6 % (37-47); Hemoglobin 11.3 g/dL (12.0-15.0); Mean Corp Hgb Conc 32.7 g/dL (32-36); Mean Corpuscular Volume 88.3 fL (81-99); Mean Platelet Vol. 10.6 fl (6.2-12.0); Platelet Count 150 K/mm3 (150-450); RBC Distribution Width CV 14.1 % (11.6-14.6); RBC Distribution Width SD 45.1 fl (35.1-43.9); Red Blood Count 3.92 M/mm3 (4.2-5.4); White Blood Count 5.3 K/mm3 (4.4-11.0)
[2025-03-22 07:56] LABS: Anion Gap 11 (5-15); BUN 18 mg/dL (4-19); BUN/Creat Ratio 30.2 RATIO (10-20); Calcium,Total 9.6 mg/dL (7.6-11.0); Carbon Dioxide 21.1 mmol/L (21.0-32.0); Chloride 106 mmol/L (98-108); Glucose 100 mg/dL (70-99); Potassium 3.7 mmol/L (3.3-5.1)
== END ==
LOC: OLS.ACW100 05:00
PROVIDERS: Visit Provider Internal Medicine
DX: I87.312 Chronic venous hypertension (idiopathic) with ulcer of left lower extremity (principal); A41.9 Sepsis, unspecified organism; R27.9 Unspecified lack of coordination; R53.1 Weakness; I82.431 Acute embolism and thrombosis of right popliteal vein
CPT/HCPCS: 36415; 80048; 85027

== ENCOUNTER → 2025-04-04 00:25 | Outpatient (REF) | payer OTHER, SELFPAY ==
[2025-04-04 08:02] LABS: Mucous, Urine 0 SEEN /hpf (<or=2+)
[2025-04-04 08:30] LABS: Color, Urine Yellow (Yellow); Glucose, Dipstick Normal (Normal); Ketone-Dipstick Negative (Negative); Leukocyte Esterase-Dipstick 500 /ul (Negative); Nitrite-Dipstick Positive (Negative); Occult Blood-Urine 250 /ul (Negative); Protein-Dipstick 30 mg/dl (Negative); Specific Gravity, Urine 1.015 (1.002-1.030)
[2025-04-04 08:44] LABS: Urine Bilirubin Dipstick 1 mg/dL (Negative)
[2025-04-04 08:48] LABS: Red Blood Cells-Urine 0-5 SEEN /hpf (0-5)
[2025-04-04 08:50] LABS: Yeast-Urine 1+ /hpf (None Seen)
[2025-04-04 08:52] LABS: Squamous Epithelial Cells - UA 25-50 SEEN /hpf (5-10)
== END ==
LOC: OLS.ACW100 00:25
PROVIDERS: Referring Provider Internal Medicine; Visit Provider Internal Medicine
DX: I87.312 Chronic venous hypertension (idiopathic) with ulcer of left lower extremity (principal); A41.9 Sepsis, unspecified organism; R27.9 Unspecified lack of coordination; R53.1 Weakness; I82.431 Acute embolism and thrombosis of right popliteal vein
CPT/HCPCS: 81001; 87077; 87086; 87088; 87186

== ENCOUNTER → 2025-04-20 05:00 | Outpatient (REF) | payer OTHER, SELFPAY ==
[2025-04-20 09:36] LABS: Hematocrit 29.2 % (37-47); Hemoglobin 9.2 g/dL (12.0-15.0); Mean Corp Hgb Conc 31.5 g/dL (32-36); Mean Corpuscular Volume 87.7 fL (81-99); Mean Platelet Vol. 10.9 fl (6.2-12.0); Platelet Count 198 K/mm3 (150-450); RBC Distribution Width CV 15.0 % (11.6-14.6); RBC Distribution Width SD 48.1 fl (35.1-43.9); Red Blood Count 3.33 M/mm3 (4.2-5.4); White Blood Count 6.0 K/mm3 (4.4-11.0)
[2025-04-20 09:48] LABS: Anion Gap 11 (5-15); BUN 13 mg/dL (4-19); BUN/Creat Ratio 16.5 RATIO (10-20); Calcium,Total 9.1 mg/dL (7.6-11.0); Carbon Dioxide 21.4 mmol/L (21.0-32.0); Chloride 108 mmol/L (98-108); Glucose 85 mg/dL (70-99); Potassium 3.5 mmol/L (3.3-5.1)
== END ==
LOC: OLS.ACW100 05:00
PROVIDERS: Visit Provider Internal Medicine
DX: I10 Essential (primary) hypertension (principal)
CPT/HCPCS: 36415; 80048; 85027

== ENCOUNTER → 2025-04-24 05:00 | Outpatient (REF) | payer OTHER, SELFPAY ==
[2025-04-24 08:13] LABS: Hematocrit 32.3 % (37-47); Hemoglobin 10.0 g/dL (12.0-15.0); Mean Corp Hgb Conc 31.0 g/dL (32-36); Mean Corpuscular Volume 89.2 fL (81-99); Mean Platelet Vol. 10.8 fl (6.2-12.0); Platelet Count 212 K/mm3 (150-450); RBC Distribution Width CV 15.2 % (11.6-14.6); RBC Distribution Width SD 49.6 fl (35.1-43.9); Red Blood Count 3.62 M/mm3 (4.2-5.4); White Blood Count 4.9 K/mm3 (4.4-11.0)
[2025-04-24 08:25] LABS: Anion Gap 11 (5-15); BUN 13 mg/dL (4-19); BUN/Creat Ratio 16.3 RATIO (10-20); Calcium,Total 9.4 mg/dL (7.6-11.0); Carbon Dioxide 22.0 mmol/L (21.0-32.0); Chloride 109 mmol/L (98-108); Glucose 80 mg/dL (70-99); Potassium 3.8 mmol/L (3.3-5.1)
== END ==
LOC: OLS.ACW100 05:00
PROVIDERS: Visit Provider Internal Medicine
DX: I87.312 Chronic venous hypertension (idiopathic) with ulcer of left lower extremity (principal); A41.9 Sepsis, unspecified organism; R27.9 Unspecified lack of coordination; R53.1 Weakness; I82.431 Acute embolism and thrombosis of right popliteal vein
CPT/HCPCS: 36415; 80048; 85027